=== PATIENT | female | born 1950 | race Caucasian/White ===

== ENCOUNTER 2023-02-25 17:35 | Inpatient (IN) ==
[2023-02-25] MEDS ORDERED: SODIUM CHLORIDE 0.9% 1000ML 1,000 ML IV SCH (18:30)
--- NOTE | 2023-02-25 18:31 | Emergency Department Note ---
History of Present Illness General Chief complaint: GI Assessment Stated complaint: FALL Time Seen by Provider: 02/25/23 18:16 Source: patient and family ( at bedside) History of Present Illness Provider complaint: Fall Onset (ago): day(s) 1 Maximum Pain Intensity: 7 73-year-old female presents emergency department for fall. Patient states she has ataxia and usually is unable to walk very well. She states that today around 1530 she tried to get up off of her portable toilet then fell and could not get up. She states she is reporting pain in her bilateral hips as well as her neck. She reports she has been having nausea and vomiting today. Tmax 100.5 today. Patient reports she was recently on Bactrim for UTI. Patient called EMS and was given fentanyl prior to arrival. Home Medications Medication Instructions Recorded Confirmed Type Lactobacillus acidophilus 10 mg PO BID 11/03/20 02/25/23 History acetaminophen 325 mg tablet 325 mg PO Q6 PRN Pain 11/03/20 02/25/23 History albuterol sulfate 90 mcg/actuation 2 puff inhalation Q4H PRN 11/03/20 02/25/23 History aerosol inhaler Shortness Of Breath atorvastatin 40 mg tablet 40 mg PO HS 11/03/20 02/25/23 History cetirizine 10 mg tablet (Zyrtec) 10 mg PO QAM 11/03/20 02/25/23 History fluticasone fur. 100 mcg-umeclid 1 inh inhalation QAM 11/03/20 02/25/23 History 62.5 mcg-vilant 25 mcg inhalat.powder (Trelegy Ellipta) fluticasone propionate 50 1 spray intranasal QAM 11/03/20 02/25/23 History mcg/actuation nasal spray,suspension ketoconazole 2 % topical cream 1 applic topical BID PRN Rash 11/03/20 02/25/23 History lorazepam 1 mg tablet 0.5 - 1 mg PO TID PRN Anxiety 11/03/20 02/25/23 History multivitamin 1 tab PO QAM 11/03/20 02/25/23 History nystatin 100,000 unit/gram topical 1 applic topical BID PRN Rash 11/03/20 05/2 04/23 History cream omeprazole 20 mg capsule,delayed 20 mg PO BID 11/03/20 02/25/23 History release oxybutynin chloride 10 mg 10 mg PO QAM 11/03/20 02/25/23 History tablet,extended release 24 hr albuterol sulfate 2.5 mg/3 mL 2.5 mg inhalation DIRECTED PRN 02/25/23 02/25/23 History (0.083 %) solution for nebulization Shortness Of Breath Or Wheezing aspirin 81 mg tablet,delayed 81 mg PO DAILY 02/25/23 02/25/23 History release cholecalciferol (vitamin D3) 25 25 mcg PO DAILY 02/25/23 02/25/23 History mcg (1,000 unit) capsule (Vitamin D3) cyanocobalamin (vitamin B-12) 100 100 mcg PO DAILY 02/25/23 02/25/23 History mcg tablet (Vitamin B-12) divalproex 500 mg tablet,delayed 500 mg PO BID 02/25/23 02/25/23 History release furosemide 20 mg tablet (Lasix) 20 mg PO QAM PRN EDEMA/WT GAIN 02/25/23 02/25/23 History insulin human U-100 NPH-regulr See Rx Instructions .Route .COMPLEX 02/25/23 02/25/23 History 70-30 mix 100 unit/mL subcutaneous susp (Novolin 70/30 U-100 Insulin) latanoprost 0.005 % eye drops 1 drp ophthalmic (eye) QPM 02/25/23 02/25/23 History metformin 500 mg tablet,extended 1,000 mg PO BID 02/25/23 02/25/23 History release 24 hr ropinirole 1 mg tablet 1 mg PO HS 02/25/23 02/25/23 History sulfamethoxazole 800 1 tab PO BID 02/25/23 02/25/23 History mg-trimethoprim 160 mg tablet Allergies Allergy/AdvReac Type Severity Reaction Status Date / Time dog dander Allergy Intermediate SNEEZING, Verified 02/25/23 21:38 ITCHING EYES & THROAT grass pollen-perennial rye, Allergy Intermediate SNEEZING, Verified 02/25/23 21:38 standar ITCHING EYES & THROAT Past Med/Surg History Medical History Anxiety Ataxia uses cane Chronic obstructive pulmonary disease inhaler daily/prn Diabetes mellitus, type 2 History of melanoma on back History of right breast cancer (~1997) diagnosed 1997--chemo/radiation/sx History of sepsis Hyperlipidemia Hypertension Morbid obesity with BMI of 45.0-49.9, adult Myoclonic jerking Osteoarthritis Surgical History History of appendectomy History of bilateral cataract extraction History of cardiac cath (~04/2018) @ [facility]--no stents placed History of cholecystectomy History of colonoscopy History of lumpectomy of right breast History of Mohs micrographic surgery for skin cancer History of right breast biopsy malignant History of tooth extraction Family History Brother Family hx of colon cancer Father Family hx of colon cancer Sister Family history of diabetes mellitus Family history of reaction to anesthesia "spike in BP and vomits" Daughter Family history of reaction to anesthesia nausea/vomiting/migraine Mother Family history of diabetes mellitus Brother Family history of diabetes mellitus Family hx colonic polyps Social History Smoking Status: Never smoker Second Hand Exposure: Yes (mom smoked/partner smoked); Do You Dip or Chew Tobacco: No; Hx Alcohol Use: No Hx Substance Use: No Preferred Language: Occitan Communication Ability: Effective Medical Assistant Dermatology Required: No Beliefs That Will Affect Care: None Current Living Situation: Significant Other Feels Safe at Home: Yes Assistive Devices: Denture - Upper and Glasses Physical Exam Vital Signs Vital Signs - 24 hr 02/25/23 17:42 02/25/23 17:47 02/25/23 17:44 Temperature 37.1 C Temperature Source Oral Pulse Rate 96 H 95 H Pulse Rate [Apical] Pulse Rhythm Pulse Rhythm [Apical] Pulse Strength [Apical] Respiratory Rate 20 Respiratory Effort / Characteristics Non-Labored Spontaneous Respiratory Depth Normal Blood Pressure 125/76 Blood Pressure [Left Arm] Blood Pressure Mean 92 Blood Pressure Mean [Left Arm] Pulse Oximetry 90 93 Oxygen Delivery Method Room Air Nasal Cannula Oxygen Flow Rate 2 Sepsis Recent Fever Within 48 Hours No Sepsis New/Unexplained Change in Mental Status No Sepsis Action Taken by Nursing No Action Required 02/25/23 20:38 02/25/23 21:00 02/25/23 21:12 Temperature Temperature Source Pulse Rate 82 Pulse Rate [Apical] 78 81 Pulse Rhythm Regular Pulse Rhythm [Apical] Regular Regular Pulse Strength [Apical] Normal Normal Respiratory Rate 18 16 18 Respiratory Effort / Characteristics Non-Labored Spontaneous Non-Labored Spontaneous Respiratory Depth Normal Normal Blood Pressure Blood Pressure [Left Arm] 121/75 102/78 Blood Pressure Mean Blood Pressure Mean [Left Arm] 90 86 Pulse Oximetry 96 95 97 Oxygen Delivery Method Nasal Cannula Nasal Cannula Nasal Cannula Oxygen Flow Rate 2 3 3 Sepsis Recent Fever Within 48 Hours Sepsis New/Unexplained Change in Mental Status Sepsis Action Taken by Nursing 02/25/23 21:31 Temperature Temperature Source Pulse Rate 79 Pulse Rate [Apical] Pulse Rhythm Pulse Rhythm [Apical] Pulse Strength [Apical] Respiratory Rate Respiratory Effort / Characteristics Respiratory Depth Blood Pressure Blood Pressure [Left Arm] Blood Pressure Mean Blood Pressure Mean [Left Arm] Pulse Oximetry Oxygen Delivery Method Oxygen Flow Rate Sepsis Recent Fever Within 48 Hours Sepsis New/Unexplained Change in Mental Status Sepsis Action Taken by Nursing Physical Exam HENT: Exam performed. -Head: Normocephalic and atraumatic. -Right Ear: External ear normal. No mastoid erythema -Left Ear: External ear normal. No mastoid erythema EYES: Conjunctivae and EOM are normal. Pupils are equal, round, and reactive to light. Right eye exhibits no discharge. Left eye exhibits no discharge. No scleral icterus. NECK: Normal range of motion. Neck supple. No JVD present. No spinous process tenderness present. No tracheal deviation and normal range of motion present. CV: Normal rate, regular rhythm, normal heart sounds and intact distal pulses. There is no peripheral edema. Palpable radial pulses bue. PULM/CHEST: Effort normal and breath sounds normal. No respiratory distress. No stridor. She has no wheezes. She has no rales. ABD: The abdomen is soft and obese. There is no tenderness. There is no rebound, no guarding MUSC/SKEL: Pain on palpation of the pelvis. LYMPH: No cervical adenopathy. NEURO: GCS eye subscore is 4. GCS verbal subscore is 5. GCS motor subscore is 6. Motor and sensation grossly intact. Course Course 1815: The patient was evaluated in room B5. A complete history and physical exam was performed Cardiac monitoring: An order was placed for continuous cardiac monitoring. The monitor shows a rate of 80 with sinus rhythm interpreted by me According nursing the patient became hypoxic on room air upon arrival was placed on 2 L nasal cannula which improved her oxygen saturation. 2124: Vital signs stable on supplemental oxygen via nasal cannula. Labs are within normal limits with exception of an elevated troponin. Imaging shows no acute traumatic injury. Patient be evaluated as an hospitalist team for admiss ion given her hypoxia elevated troponin and weakness. Dr. Love was notified and states he will evaluate the patient for admission. Administered Medications Discontinued Medications Sodium Chloride (Nss 1000ml) 1,000 mls @ 999 mls/hr IV .Q1H1M NEELAM Stop: 02/25/23 19:30 Last Admin: 02/25/23 20:19 Dose: 999 mls/hr Documented By: LAUREN Ioversol (Optiray 320 500ml) 116 ml IV ONCE ONE Stop: 02/25/23 19:35 Last Admin: 02/25/23 19:34 Dose: 116 ml Documented By: JAZLYN Medical Decision Making Laboratory Data Attestation: I reviewed the patient's lab results. 02/25/23 18:59 02/25/23 18:59 Lab Results 02/25/23 02/25/23 02/25/23 Range/Units 18:59 18:59 18:59 WBC 10.94 H (4.8-10.8) K/ul RBC 5.15 (4.20-5.40) M/uL Hgb 13.7 (12.0-16.0) g/dl POC Hgb (12.0-16.0) g/dl Hct 41.3 (37.0-47.0) % POC Hct (37-47) % MCV 80.2 (80.0-100.0) fL MCH 26.6 (25.0-34.0) pg MCHC 33.2 (32.0-36.0) g/dL RDW Std Deviation 46.3 (36.4-46.3) fL RDW Coeff of [place] 15.9 H (11.5-14.5) % Plt Count 237 (130-400) K/uL MPV 9.6 (9.4-12.4) fL Immature Gran % (Auto) 0.5 % Neut % (Auto) 87.7 % Lymph % (Auto) 5.0 % [place] % (Auto) 6.4 % Eos % (Auto) 0.2 % Baso % (Auto) 0.2 % Neut # (Auto) 9.59 H (1.40-6.50) K/uL Lymph # (Auto) 0.55 L (1.2-3.4) K/uL [place] # (Auto) 0.70 H (0.11-0.59) K/uL Eos # (Auto) 0.02 (0-0.50) K/uL Baso # (Auto) 0.02 (0-0.2) K/uL Immature Gran # (Auto) 0.06 (0.01-0.20) K/uL PT 11.0 (9.0-12.0) Seconds INR 1.0 (0.9-1.1) APTT 26.5 (21.0-31.0) Seconds PTT Ratio 0.9 VBG pH (7.36-7.41) VBG pCO2 (38-50) mmHg VBG pO2 mmHg VBG HCO3 mmol/L VBG O2 Saturation % VBG Base Excess mEq/L POC Sodium (135-144) mmol/L Sodium 135 L (136-145) mmol/L POC Potassium (3.3-5.0) mmol/L Potassium 4.4 (3.5-5.1) mmol/L POC Chloride (101-112) mmol/L Chloride 101 (98-107) mmol/L Carbon Dioxide 25 (21-32) mmol/L POC Total CO2 (24-31) mmol/L Anion Gap 9 (3-11) POC Anion Gap (16-25) mmol/L POC BUN (7-18) mg/dl BUN 11 (6-23) mg/dl Creatinine 0.71 (0.6-1.2) mg/dl POC Creatinine (0.6-1.3) mg/dl Est Cr Clr Drug Dosing 85.1 ml/min Est GFR ( Amer) 98.6 ml/min Est GFR (Non-Af Amer) 85.1 ml/min BUN/Creatinine Ratio 15.5 (10-20) Glucose 168 H (70-99(Fasting)) mg/dl POC Glucose (other) (70-99) mg/dl Lactate (0.4-2.0) mmol/L Calcium 9.2 (8.6-10.3) mg/dl POC Ioniz Calcium Cheryl (1.12-1.32) mmol/l Magnesium 1.9 (1.7-2.4) mg/dl Total Bilirubin 0.7 (0.2-1.0) mg/dl Direct Bilirubin 0.2 (0-0.2) mg/dl AST 41 H (13-39) U/L ALT 49 (7-52) U/L Alkaline Phosphatase 157 H (34-104) U/L Ammonia (18-72) umol/L Troponin I High Sens 48.1 H (0-14) pg/ml Total Protein 7.2 (6.0-8.3) gm/dl Albumin 3.8 (3.4-5.0) gm/dl Procalcitonin (0-0.5) ng/ml Urine Color Urine Appearance (Clear) Urine pH (4.5-7.5) Ur Specific [place] (1.000-1.030) Urine Protein (Negative) Urine Glucose (UA) (Negative) Urine Ketones (Negative) Urine Blood (Negative) Urine Nitrite (Negative) Urine Bilirubin (Negative) Urine Urobilinogen (Negative) Ur Leukocyte Esterase (Negative) Urine WBC (Auto) (0-5) /hpf Urine RBC (Auto) (0-4) /hpf U Hyaline Cast (Auto) (0-5) /lpf U Epithel Cells (Auto) (0-5) /lpf Urine Bacteria (Auto) (Negative) SARS-CoV-2 (PCR) (Negative) Influenza Type A (PCR) (Neg) Influenza Type B (PCR) (Neg) RSV (RT-PCR) (Neg) 02/25/23 02/25/23 02/25/23 Range/Units 18:59 18:59 18:59 WBC (4.8-10.8) K/ul RBC (4.20-5.40) M/uL Hgb (12.0-16.0) g/dl POC Hgb (12.0-16.0) g/dl Hct (37.0-47.0) % POC Hct (37-47) % MCV (80.0-100.0) fL MCH (25.0-34.0) pg MCHC (32.0-36.0) g/dL RDW Std Deviation (36.4-46.3) fL RDW Coeff of [place] (11.5-14.5) % Plt Count (130-400) K/uL MPV (9.4-12.4) fL Immature Gran % (Auto) % Neut % (Auto) % Lymph % (Auto) % [place] % (Auto) % Eos % (Auto) % Baso % (Auto) % Neut # (Auto) (1.40-6.50) K/uL Lymph # (Auto) (1.2-3.4) K/uL [place] # (Auto) (0.11-0.59) K/uL Eos # (Auto) (0-0.50) K/uL Baso # (Auto) (0-0.2) K/uL Immature Gran # (Auto) (0.01-0.20) K/uL PT (9.0-12.0) Seconds INR (0.9-1.1) APTT (21.0-31.0) Seconds PTT Ratio VBG pH 7.40 (7.36-7.41) VBG pCO2 42 (38-50) mmHg VBG pO2 41 mmHg VBG HCO3 26 mmol/L VBG O2 Saturation 65.5 % VBG Base Excess 1.0 mEq/L POC Sodium (135-144) mmol/L Sodium (136-145) mmol/L POC Potassium (3.3-5.0) mmol/L Potassium (3.5-5.1) mmol/L POC Chloride (101-112) mmol/L Chloride (98-107) mmol/L Carbon Dioxide (21-32) mmol/L POC Total CO2 (24-31) mmol/L Anion Gap (3-11) POC Anion Gap (16-25) mmol/L POC BUN (7-18) mg/dl BUN (6-23) mg/dl Creatinine (0.6-1.2) mg/dl POC Creatinine (0.6-1.3) mg/dl Est Cr Clr Drug Dosing ml/min Est GFR ( Amer) ml/min Est GFR (Non-Af Amer) ml/min BUN/Creatinine Ratio (10-20) Glucose (70-99(Fasting)) mg/dl POC Glucose (other) (70-99) mg/dl Lactate 1.5 (0.4-2.0) mmol/L Calcium (8.6-10.3) mg/dl POC Ioniz Calcium Cheryl (1.12-1.32) mmol/l Magnesium (1.7-2.4) mg/dl Total Bilirubin (0.2-1.0) mg/dl Direct Bilirubin (0-0.2) mg/dl AST (13-39) U/L ALT (7-52) U/L Alkaline Phosphatase (34-104) U/L Ammonia (18-72) umol/L Troponin I High Sens (0-14) pg/ml Total Protein (6.0-8.3) gm/dl Albumin (3.4-5.0) gm/dl Procalcitonin 0.50 (0-0.5) ng/ml Urine Color Urine Appearance (Clear) Urine pH (4.5-7.5) Ur Specific [place] (1.000-1.030) Urine Protein (Negative) Urine Glucose (UA) (Negative) Urine Ketones (Negative) Urine Blood (Negative) Urine Nitrite (Negative) Urine Bilirubin (Negative) Urine Urobilinogen (Negative) Ur Leukocyte Esterase (Negative) Urine WBC (Auto) (0-5) /hpf Urine RBC (Auto) (0-4) /hpf U Hyaline Cast (Auto) (0-5) /lpf U Epithel Cells (Auto) (0-5) /lpf Urine Bacteria (Auto) (Negative) SARS-CoV-2 (PCR) (Negative) Influenza Type A (PCR) (Neg) Influenza Type B (PCR) (Neg) RSV (RT-PCR) (Neg) 02/25/23 02/25/23 02/25/23 Range/Units 18:59 19:17 20:25 WBC (4.8-10.8) K/ul RBC (4.20-5.40) M/uL Hgb (12.0-16.0) g/dl POC Hgb 13.9 (12.0-16.0) g/dl Hct (37.0-47.0) % POC Hct 41 (37-47) % MCV (80.0-100.0) fL MCH (25.0-34.0) pg MCHC (32.0-36.0) g/dL RDW Std Deviation (36.4-46.3) fL RDW Coeff of [place] (11.5-14.5) % Plt Count (130-400) K/uL MPV (9.4-12.4) fL Immature Gran % (Auto) % Neut % (Auto) % Lymph % (Auto) % [place] % (Auto) % Eos % (Auto) % Baso % (Auto) % Neut # (Auto) (1.40-6.50) K/uL Lymph # (Auto) (1.2-3.4) K/uL [place] # (Auto) (0.11-0.59) K/uL Eos # (Auto) (0-0.50) K/uL Baso # (Auto) (0-0.2) K/uL Immature Gran # (Auto) (0.01-0.20) K/uL PT (9.0-12.0) Seconds INR (0.9-1.1) APTT (21.0-31.0) Seconds PTT Ratio VBG pH (7.36-7.41) VBG pCO2 (38-50) mmHg VBG pO2 mmHg VBG HCO3 mmol/L VBG O2 Saturation % VBG Base Excess mEq/L POC Sodium 136 (135-144) mmol/L Sodium (136-145) mmol/L POC Potassium 4.2 (3.3-5.0) mmol/L Potassium (3.5-5.1) mmol/L POC Chloride 100 L (101-112) mmol/L Chloride (98-107) mmol/L Carbon Dioxide (21-32) mmol/L POC Total CO2 22 L (24-31) mmol/L Anion Gap (3-11) POC Anion Gap 20.0 (16-25) mmol/L POC BUN 10 (7-18) mg/dl BUN (6-23) mg/dl Creatinine (0.6-1.2) mg/dl POC Creatinine 0.6 (0.6-1.3) mg/dl Est Cr Clr Drug Dosing ml/min Est GFR ( Amer) ml/min Est GFR (Non-Af Amer) ml/min BUN/Creatinine Ratio (10-20) Glucose (70-99(Fasting)) mg/dl POC Glucose (other) 170 H (70-99) mg/dl Lactate (0.4-2.0) mmol/L Calcium (8.6-10.3) mg/dl POC Ioniz Calcium Cheryl 1.17 (1.12-1.32) mmol/l Magnesium (1.7-2.4) mg/dl Total Bilirubin (0.2-1.0) mg/dl Direct Bilirubin (0-0.2) mg/dl AST (13-39) U/L ALT (7-52) U/L Alkaline Phosphatase (34-104) U/L Ammonia 23.0 (18-72) umol/L Troponin I High Sens (0-14) pg/ml Total Protein (6.0-8.3) gm/dl Albumin (3.4-5.0) gm/dl Procalcitonin (0-0.5) ng/ml Urine Color Yellow Urine Appearance Clear (Clear) Urine pH 6.0 (4.5-7.5) Ur Specific [place] > 1.045 H (1.000-1.030) Urine Protein Trace H (Negative) Urine Glucose (UA) Negative (Negative) Urine Ketones 2+ H (Negative) Urine Blood Negative (Negative) Urine Nitrite Negative (Negative) Urine Bilirubin Negative (Negative) Urine Urobilinogen Negative (Negative) Ur Leukocyte Esterase Negative (Negative) Urine WBC (Auto) 1-5 (0-5) /hpf Urine RBC (Auto) 0-4 (0-4) /hpf U Hyaline Cast (Auto) 1-5 (0-5) /lpf U Epithel Cells (Auto) >30 H (0-5) /lpf Urine Bacteria (Auto) Negative (Negative) SARS-CoV-2 (PCR) (Negative) Influenza Type A (PCR) (Neg) Influenza Type B (PCR) (Neg) RSV (RT-PCR) (Neg) 02/25/23 Range/Units 20:25 WBC (4.8-10.8) K/ul RBC (4.20-5.40) M/uL Hgb (12.0-16.0) g/dl POC Hgb (12.0-16.0) g/dl Hct (37.0-47.0) % POC Hct (37-47) % MCV (80.0-100.0) fL MCH (25.0-34.0) pg MCHC (32.0-36.0) g/dL RDW Std Deviation (36.4-46.3) fL RDW Coeff of [place] (11.5-14.5) % Plt Count (130-400) K/uL MPV (9.4-12.4) fL Immature Gran % (Auto) % Neut % (Auto) % Lymph % (Auto) % [place] % (Auto) % Eos % (Auto) % Baso % (Auto) % Neut # (Auto) (1.40-6.50) K/uL Lymph # (Auto) (1.2-3.4) K/uL [place] # (Auto) (0.11-0.59) K/uL Eos # (Auto) (0-0.50) K/uL Baso # (Auto) (0-0.2) K/uL Immature Gran # (Auto) (0.01-0.20) K/uL PT (9.0-12.0) Seconds INR (0.9-1.1) APTT (21.0-31.0) Seconds PTT Ratio VBG pH (7.36-7.41) VBG pCO2 (38-50) mmHg VBG pO2 mmHg VBG HCO3 mmol/L VBG O2 Saturation % VBG Base Excess mEq/L POC Sodium (135-144) mmol/L Sodium (136-145) mmol/L POC Potassium (3.3-5.0) mmol/L Potassium (3.5-5.1) mmol/L POC Chloride (101-112) mmol/L Chloride (98-107) mmol/L Carbon Dioxide (21-32) mmol/L POC Total CO2 (24-31) mmol/L Anion Gap (3-11) POC Anion Gap (16-25) mmol/L POC BUN (7-18) mg/dl BUN (6-23) mg/dl Creatinine (0.6-1.2) mg/dl POC Creatinine (0.6-1.3) mg/dl Est Cr Clr Drug Dosing ml/min Est GFR ( Amer) ml/min Est GFR (Non-Af Amer) ml/min BUN/Creatinine Ratio (10-20) Glucose (70-99(Fasting)) mg/dl POC Glucose (other) (70-99) mg/dl Lactate (0.4-2.0) mmol/L Calcium (8.6-10.3) mg/dl POC Ioniz Calcium Cheryl (1.12-1.32) mmol/l Magnesium (1.7-2.4) mg/dl Total Bilirubin (0.2-1.0) mg/dl Direct Bilirubin (0-0.2) mg/dl AST (13-39) U/L ALT (7-52) U/L Alkaline Phosphatase (34-104) U/L Ammonia (18-72) umol/L Troponin I High Sens (0-14) pg/ml Total Protein (6.0-8.3) gm/dl Albumin (3.4-5.0) gm/dl Procalcitonin (0-0.5) ng/ml Urine Color Urine Appearance (Clear) Urine pH (4.5-7.5) Ur Specific [place] (1.000-1.030) Urine Protein (Negative) Urine Glucose (UA) (Negative) Urine Ketones (Negative) Urine Blood (Negative) Urine Nitrite (Negative) Urine Bilirubin (Negative) Urine Urobilinogen (Negative) Ur Leukocyte Esterase (Negative) Urine WBC (Auto) (0-5) /hpf Urine RBC (Auto) (0-4) /hpf U Hyaline Cast (Auto) (0-5) /lpf U Epithel Cells (Auto) (0-5) /lpf Urine Bacteria (Auto) (Negative) SARS-CoV-2 (PCR) NEGATIVE (Negative) Influenza Type A (PCR) Negative (Neg) Influenza Type B (PCR) Negative (Neg) RSV (RT-PCR) Negative (Neg) Imaging Data Attestation: I personally reviewed and interpreted this imaging study as follows: My Impression: Chest x-ray negative. Airway clear. No pneumothorax. No consolidation. No cardiomegaly or cephalization.. No free air under the diaphragm. No fractures of the skeletal structures. Radiologist's Impression: Chest X-Ray 02/25/23 18:23 XR chest 1V portable HISTORY: Sepsis COMPARISON: Chest 04/18/2018. FINDINGS: There are low lung volumes. No pneumothorax. There is mild central pulmonary vascular congestion without overt edema. No pleural effusions. No focal lung consolidations to suggest a pneumonia. Prior cholecystectomy. Calcifications within the aortic knob. Elevation of the right hemidiaphragm, unchanged. No acute fractures identified. IMPRESSION: Mild cardiomegaly and mild central pulmonary vascular congestion. ACT 112: Negative or not required by law. Electronically signed by: Phu Almeida M.D. 02/25/2023 8:08 PM Abdomen/Pelvis CT 02/25/23 18:[address] WITH IV CONTRAST CT DOSE: HISTORY: fall TECHNIQUE: Multiaxial CT images of the abdomen and pelvis were performed following the use of intravenous contrast. A dose lowering technique was utilized adhering to the principles of ALARA. COMPARISON STUDY: Abdomen and pelvis CT 05/09/2014. FINDINGS: Mild elevation of the right hemidiaphragm. Bibasilar linear densities consistent with subsegmental atelectasis. No pneumoperitoneum. No pneumatosis. Stable 9 mm sclerotic focus within the left posterior 12th rib. This likely represents a bone island given the long-term stability. No acute fractures identified. Prior cholecystectomy. The liver, pancreas, spleen, adrenal glands, and kidneys are unremarkable. No hydronephrosis. The main portal vein is patent. There is a mildly enlarged portacaval lymph node, unchanged. This is likely benign given the long-term stability. Otherwise, no retroperitoneal or pelvic lymphadenopathy. Moderate calcified plaque within the normal caliber abdominal aorta. No pelvic free fluid. The bladder is decompressed. A 2 cm calcified uterine fibroid is noted. The ovaries are unremarkable. Colonic diverticulosis. No evidence for acute diverticulitis. No bowel wall thickening or obstruction. IMPRESSION: 1. No acute traumatic process within the abdomen or pelvis. 2. No bowel wall thickening or obstruction. 3. Prior cholecystectomy. 4. Additional findings as described above. ACT 112: Negative or not required by law. Electronically signed by: Phu Almeida M.D. 02/25/2023 8:[address] 02/25/23 18:[address] DOSE: HISTORY: fall TECHNIQUE: Multiaxial CT images of the cervical spine were performed and reformatted in the sagittal and coronal plane without the use of contrast. A dose lowering technique was utilized adhering to the principles of ALARA. COMPARISON: None. FINDINGS: No fractures. No subluxation. Prevertebral soft tissues and the C1-C2 interval are intact. No pneumothorax. There is a coarse calcification within the left thyroid lobe and a 9 mm hypodense nodule. This does not meet CT criteria for follow-up. IMPRESSION: No fractures within the cervical spine. ACT 112: Negative or not required by law. Electronically signed by: Phu Almeida M.D. 02/25/2023 7:48 PM Chest CTA 02/25/23 18:24 CHEST CTA for PULMONARY ARTERIES CT DOSE: 3638.75 mGy.cm HISTORY: fall hypoxia immobile ro pe TECHNIQUE: Multiaxial CT images of the chest were performed following the intravenous administration of contrast to evaluate the pulmonary arteries. Maximal intensity projection images were also obtained. A dose lowering technique was utilized adhering to the principles of ALARA. COMPARISON STUDY: None. FINDINGS: There is a 1 cm sclerotic lesion within the right side of the T4 v ertebral body. No acute fractures within the chest. The central airways are patent. No pneumothorax. No pleural effusions. There are low lung volumes with mild elevation the right hemidiaphragm. Bibasilar linear densities favor subsegmental atelectasis. Otherwise, no focal lung consolidations to suggest a pneumonia. No evidence for pulmonary edema. A 9 mm left thyroid nodules again noted. Normal esophagus. No mediastinal or hilar lymphadenopathy. The heart is mildly enlarged. No pericardial effusion. Calcified plaque within the normal caliber thoracic aorta. No evidence for an aortic dissection. There are moderate to severe coronary artery calcifications noted. No filling defects within the pulmonary arteries to suggest a pulmonary embolus. IMPRESSION: 1. No evidence for a pulmonary embolus. 2. Cardiomegaly. 3. Bibasilar linear densities favor subsegmental atelectasis. Otherwise, no focal lung consolidations to suggest a pneumonia. 4. No acute traumatic process within the chest. 5. A 1 cm indeterminate sclerotic lesion within the right side of the T4 vertebral body. Follow-up nonemergent bone scan recommended to exclude a metabolically active lesion. ACT 112: Positive. There are findings on this exam that require communication between the performing entity and the patient following Patient Test Result Information Act ([place] Act 112) guidelines. Electronically signed by: Phu Almeida M.D. 02/25/2023 7:56 PM Head CT 02/25/23 18:[address] DOSE: HISTORY: Head injury. fall TECHNIQUE: Multiaxial CT images of the head were performed without the use of intravenous contrast. Automated exposure control was utilized for this study. A dose lowering technique was utilized adhering to the principles of ALARA. Comparison: Head CT 04/19/2018. Findings: The paranasal sinuses and mastoid air cells are clear. The calvarium and skull base are intact. There is no mass, hematoma, midline shift, acute infarct. White matter hypodensity is nonspecific but suggestive of microvascular ischemic change. The ventricles and sulci demonstrate mild age-related involutional changes. Motion artifact. Impression: Motion artifact. No definite acute intracranial abnormality. ACT 112: Negative or not required by law. Electronically signed by: Phu Almeida M.D. 02/25/2023 7:45 PM Pelvis X-Ray 02/25/23 18:25 XR pelvis 1-2V routine CLINICAL HISTORY: fall. Pelvic pain. COMPARISON STUDY: None. FINDINGS: No fracture or dislocation within the pelvis or hips. The sacrum is intact. Soft tissues are unremarkable. There is contrast within the urinary system from the recent CT examination. IMPRESSION: No fracture or dislocation within the pelvis or hips. ACT 112: Negative or not required by law. Electronically signed by: Phu Almeida M.D. 02/25/2023 8:09 PM ECG Data Attestation: I personally reviewed and interpreted this ECG as follows: Indication: + SOB/dyspnea Rate (beats per minute): 92 Rhythm: + normal sinus ECG Intervals/blocks: + Normal QRS and + Normal TN ECG ST segments: + Normal ST segments ECG Findings: + LVH MDM Narrative 1815: The patient was evaluated in room B5. A complete history and physical exam was performed Cardiac monitoring: An order was placed for continuous cardiac monitoring. The monitor shows a rate of 80 with sinus rhythm interpreted by me According nursing the patient became hypoxic on room air upon arrival was placed on 2 L nasal cannula which improved her oxygen saturation. 2124: Vital signs stable on supplemental oxygen via nasal cannula. Labs are within normal limits with exception of an elevated troponin. Imaging shows no acute traumatic injury. Patient be evaluated as an hospitalist team for admission given her hypoxia elevated troponin and weakness. Dr. Love was notified and states he will evaluate the patient for admission. Impression & Plan Hypoxia, Recurrent falls, Elevated troponin Discharge Plan Visit Data Chief Complaint: GI Assessment Stated Complaint: FALL ED Provider: Surendra Moise Discharge Problem: Hypoxia, Recurrent falls, Elevated troponin Patient Disposition: Admitted As Inpatient Forms Stand Alone Forms: [facility] Prescriptions Prescriptions: No Action multivitamin Tablet 1 tab PO QAM atorvastatin 40 mg Tablet 40 mg PO HS acetaminophen 325 mg Tablet 325 mg PO Q6 PRN (Reason: Pain) cetirizine [Zyrtec] 10 mg Tablet 10 mg PO QAM oxybutynin chloride 10 mg Tablet Extended Release 24hr 10 mg PO QAM nystatin 100,000 unit/gram Cream 1 applic TOPICAL BID PRN (Reason: Rash) omeprazole 20 mg Capsule,Delayed Release(Dr/Ec) 20 mg PO BID lorazepam 1 mg Tablet 0.5 - 1 mg PO TID PRN (Reason: Anxiety) Patient Comments: per pt takes before riding in cars Lactobacillus acidophilus Capsule 10 mg PO BID albuterol sulfate 90 mcg/actuation Hfa Aerosol Inhaler 2 puff INHALATION Q4H PRN (Reason: Shortness Of Breath) ketoconazole 2 % Cream 1 applic TOPICAL BID PRN (Reason: Rash) fluticasone propionate [Flonase] 50 mcg/actuation [place],Suspension 1 spray INTRANASAL QAM Trelegy Ellipta 100-62.5-25 mcg Blister With Device 1 inh INHALATION QAM latanoprost 0.005 % drops 1 drp ophthalmic (eye) QPM ropinirole 1 mg tablet 1 mg PO HS cyanocobalamin (vitamin B-12) [Vitamin B-12] 100 mcg Tablet 100 mcg PO DAILY albuterol sulfate [Proventil] 2.5 mg /3 mL (0.083 %) Solution For Nebulization 2.5 mg INHALATION DIRECTED PRN (Reason: Shortness Of Breath Or Wheezing) Novolin 70/30 U-100 Insulin 100 unit/mL (70-30) suspension See Rx Instructions .ROUTE .COMPLEX Rx Instructions: 31 UNITS QAM, 21 UNITS QPM ( ON GOOD DAY 25 QAM, 13 QPM) PER [facility]. divalproex 500 mg tablet,delayed release (DR/EC) 500 mg PO BID sulfamethoxazole-trimethoprim 800-160 mg tablet 1 tab PO BID Rx Instructions: STARTED 02/17/23 FOR 7 DAYS aspirin 81 mg Tablet,Delayed Release (Dr/Ec) 81 mg PO DAILY furosemide [Lasix] 20 mg Tablet 20 mg PO QAM PRN (Reason: EDEMA/WT GAIN) metformin 500 mg tablet extended release 24 hr 1,000 mg PO BID cholecalciferol (vitamin D3) [Vitamin D3] 25 mcg (1,000 unit) Capsule 25 mcg PO DAILY Referrals Referrals: Renny Abdi MD [Primary Care Provider] -
[2023-02-25 19:10] LABS: HCO3 VBG 26 mmol/L; Oxygen Saturation VBG 65.5 %; PCO2 VBG 42 mmHg (38-50); PO2 VBG 41 mmHg
[2023-02-25 19:15] LABS: Basophils # (auto) 0.02 K/uL (0-0.2); Basophils % (auto) 0.2 %; Eosinophils # (auto) 0.02 K/uL (0-0.50); Eosinophils % (auto) 0.2 %; Hematocrit (blood only) 41.3 % (37.0-47.0); Hemoglobin 13.7 g/dl (12.0-16.0); Immature Granulocytes # (auto) 0.06 K/uL (0.01-0.20); Immature Granulocytes % (auto) 0.5 %; Lymphocytes # (auto) 0.55 K/uL (1.2-3.4); Mean Corpuscular Hemoglobin 26.6 pg (25.0-34.0); Mean Corpuscular Hgb Conc 33.2 g/dL (32.0-36.0); Mean Corpuscular Volume 80.2 fL (80.0-100.0); Mean Platelet Volume 9.6 fL (9.4-12.4); Monocytes % (auto) 6.4 %; Neutrophils # (auto) 9.59 K/uL (1.40-6.50); Neutrophils % (auto) 87.7 %; Platelet Count 237 K/uL (130-400); RDW Coefficient of Variation 15.9 % (11.5-14.5); RDW Standard Deviation 46.3 fL (36.4-46.3); Red Blood Count 5.15 M/uL (4.20-5.40); White Blood Count 10.94 K/ul (4.8-10.8)
[2023-02-25 19:30] LABS: iSTAT Creatinine 0.6 mg/dl (0.6-1.3); iSTAT Hemoglobin 13.9 g/dl (12.0-16.0); iSTAT Ionized Calcium 1.17 mmol/l (1.12-1.32); iSTAT Potassium 4.2 mmol/L (3.3-5.0)
[2023-02-25] MEDS ORDERED: OPTIRAY 320 500ml IV ONE (19:34)
[2023-02-25 19:36] LABS: Albumin Level 3.8 gm/dl (3.4-5.0); BUN Creatinine Ratio 15.5 (10-20); Bilirubin Direct 0.2 mg/dl (0-0.2); Bilirubin,Total 0.7 mg/dl (0.2-1.0); Calcium 9.2 mg/dl (8.6-10.3); Creatinine Clr Calc Pharmacy 85.1 ml/min; Est GFR (African American) 98.6 ml/min; Est GFR (Non-African American) 85.1 ml/min; Magnesium 1.9 mg/dl (1.7-2.4); Potassium 4.4 mmol/L (3.5-5.1); Total Protein 7.2 gm/dl (6.0-8.3)
[2023-02-25 19:40] LABS: Troponin I High Sensitivity 48.1 pg/ml (0-14)
--- NOTE | 2023-02-25 19:47 | CT Scan Report ---
HEAD CT NONCONTRAST CT DOSE: HISTORY: Head injury. fall TECHNIQUE: Multiaxial CT images of the head were performed without the use of intravenous contrast. A utomated exposure control was utilized for this study. A dose lowering technique was utilized adheri ng to the principles of ALARA. Comparison: Head CT 04/19/2018. Findings: The paranasal sinuses and mastoid air cells are clear. The calvarium and skull base are int act. There is no mass, hematoma, midline shift, acute infarct. White matter hypodensity is nonspecifi c but suggestive of microvascular ischemic change. The ventricles and sulci demonstrate mild age-rela paty involutional changes. Motion artifact. Impression: Motion artifact. No definite acute intracranial abnormality. ACT 112: Negative or not required by law. Electronically signed by: Phu Almeida M.D. 02/25/2023 7:45 PM
--- NOTE | 2023-02-25 19:49 | CT Scan Report ---
CERVICAL SPINE CT CT DOSE: HISTORY: fall TECHNIQUE: Multiaxial CT images of the cervical spine were performed and reformatted in the sagittal and coronal plane without the use of contrast. A dose lowering technique was utilized adhering to th e principles of ALARA. COMPARISON: None. FINDINGS: No fractures. No subluxation. Prevertebral soft tissues and the C1-C2 interval are intact. No pneumothorax. There is a coarse calcification within the left thyroid lobe and a 9 mm hypodense no dule. This does not meet CT criteria for follow-up. IMPRESSION: No fractures within the cervical spine. ACT 112: Negative or not required by law. Electronically signed by: Phu Almeida M.D. 02/25/2023 7:48 PM
[2023-02-25 19:51] LABS: Partial Thromboplastin Ratio 0.9; Partial Thromboplastin Time 26.5 Seconds (21.0-31.0)
--- NOTE | 2023-02-25 19:58 | CT Scan Report ---
CHEST CTA for PULMONARY ARTERIES CT DOSE: 3638.75 mGy.cm HISTORY: fall hypoxia immobile ro pe TECHNIQUE: Multiaxial CT images of the chest were performed following the intravenous administration of contrast to evaluate the pulmonary arteries. Maximal intensity projection images were also obtaine d. A dose lowering technique was utilized adhering to the principles of ALARA. COMPARISON STUDY: None. FINDINGS: There is a 1 cm sclerotic lesion within the right side of the T4 vertebral body. No acute f ractures within the chest. The central airways are patent. No pneumothorax. No pleural effusions. The re are low lung volumes with mild elevation the right hemidiaphragm. Bibasilar linear densities favor subsegmental atelectasis. Otherwise, no focal lung consolidations to suggest a pneumonia. No evidenc e for pulmonary edema. A 9 mm left thyroid nodules again noted. Normal esophagus. No mediastinal or h ilar lymphadenopathy. The heart is mildly enlarged. No pericardial effusion. Calcified plaque within the normal caliber thoracic aorta. No evidence for an aortic dissection. There are moderate to severe coronary artery calcifications noted. No filling defects within the pulmonary arteries to suggest a pulmonary embolus. IMPRESSION: 1. No evidence for a pulmonary embolus. 2. Cardiomegaly. 3. Bibasilar linear densities favor subsegmental atelectasis. Otherwise, no focal lung consolidations to suggest a pneumonia. 4. No acute traumatic process within the chest. 5. A 1 cm indeterminate sclerotic lesion within the right side of the T4 vertebral body. Follow-up no nemergent bone scan recommended to exclude a metabolically active lesion. ACT 112: Positive. There are findings on this exam that require communication between the performing entity and the patient following Patient Test Result Information Act ([place] Act 112) guidelines. Electronically signed by: Phu Almeida M.D. 02/25/2023 7:56 PM
--- NOTE | 2023-02-25 20:05 | CT Scan Report ---
ABDOMEN AND PELVIS CT WITH IV CONTRAST CT DOSE: HISTORY: fall TECHNIQUE: Multiaxial CT images of the abdomen and pelvis were performed following the use of intrave nous contrast. A dose lowering technique was utilized adhering to the principles of ALARA. COMPARISON STUDY: Abdomen and pelvis CT 05/09/2014. FINDINGS: Mild elevation of the right hemidiaphragm. Bibasilar linear densities consistent with subse gmental atelectasis. No pneumoperitoneum. No pneumatosis. Stable 9 mm sclerotic focus within the left posterior 12th rib. This likely represents a bone island given the long-term stability. No acute fra ctures identified. Prior cholecystectomy. The liver, pancreas, spleen, adrenal glands, and kidneys ar e unremarkable. No hydronephrosis. The main portal vein is patent. There is a mildly enlarged [place] lymph node, unchanged. This is likely benign given the long-term stability. Otherwise, no retrope ritoneal or pelvic lymphadenopathy. Moderate calcified plaque within the normal caliber abdominal aor ta. No pelvic free fluid. The bladder is decompressed. A 2 cm calcified uterine fibroid is noted. The ovaries are unremarkable. Colonic diverticulosis. No evidence for acute diverticulitis. No bowel wal l thickening or obstruction. IMPRESSION: 1. No acute traumatic process within the abdomen or pelvis. 2. No bowel wall thickening or obstruction. 3. Prior cholecystectomy. 4. Additional findings as described above. ACT 112: Negative or not required by law. Electronically signed by: Phu Almeida M.D. 02/25/2023 8:03 PM
--- NOTE | 2023-02-25 20:09 | XRay Report ---
XR chest 1V portable HISTORY: Sepsis COMPARISON: Chest 04/18/2018. FINDINGS: There are low lung volumes. No pneumothorax. There is mild central pulmonary vascular conge stion without overt edema. No pleural effusions. No focal lung consolidations to suggest a pneumonia. Prior cholecystectomy. Calcifications within the aortic knob. Elevation of the right hemidiaphragm, unchanged. No acute fractures identified. IMPRESSION: Mild cardiomegaly and mild central pulmonary vascular congestion. ACT 112: Negative or not required by law. Electronically signed by: Phu Almeida M.D. 02/25/2023 8:08 PM
--- NOTE | 2023-02-25 20:10 | XRay Report ---
XR pelvis 1-2V routine CLINICAL HISTORY: fall. Pelvic pain. COMPARISON STUDY: None. FINDINGS: No fracture or dislocation within the pelvis or hips. The sacrum is intact. Soft tissues ar e unremarkable. There is contrast within the urinary system from the recent CT examination. IMPRESSION: No fracture or dislocation within the pelvis or hips. ACT 112: Negative or not required by law. Electronically signed by: Phu Almeida M.D. 02/25/2023 8:09 PM
[2023-02-25 20:42] LABS: Appearance Urine Clear (Clear); Bacteria Urine Automated Negative (Negative); Bilirubin Urine Negative (Negative); Blood Urine Negative (Negative); Color Urine Yellow; Epithelial Cell Urine Auto >30 /lpf (0-5); Glucose Urine UA Negative (Negative); Ketones Urine 2+ (Negative); Leukocyte Esterase Urine Negative (Negative); Nitrite Urine Negative (Negative); Protein Urine Trace (Negative); RBC Urine Automated 0-4 /hpf (0-4); Specific Gravity Urine > 1.045 (1.000-1.030); Urobilinogen Urine Negative (Negative)
[2023-02-25 21:14] LABS: Influenza A virus by PCR Negative (Neg); Influenza B virus by PCR Negative (Neg); RSV by PCR Negative (Neg); SARS CoV2 RNA(COVID-19) Ceph NEGATIVE (Negative)
[2023-02-25] MEDS ORDERED: SODIUM CHLORIDE 0.9% 1000ML 1,000 ML IV ONE (21:30)
[2023-02-25 22:25] LABS: Troponin I High Sensitivity 35.5 pg/ml (0-14)
--- NOTE | 2023-02-25 23:01 | History & Physical Report ---
Date of Service February 25, 2023 Assessment & Plan (1) Hypoxia: Plan: Patient denies chest pain, SOB Possibly chronic Rule out pulmonary hypertension given history COPD/MIKE as per records Hypotension secondary to hypovolemia secondary to GI upset, recent UTI status p ost Bactrim Rx chronic diastolic heart failure (55 to 60%, TTE 2018), patient on the dry side Troponin elevation secondary to illness, hx nonocclusive CAD, patient without chest pain/SOB complaints DM 2 insulin requiring, well-controlled as of hemoglobin A1c of 5.6 last December 2021 Worsening ambulatory dysfunction secondary to illness, history ataxia as per records possible RLS, unimproved on current ropinirole regimen Troponin elevation Right breast cancer status post surgery/radiotherapy, currently in remission anxiety/mood disorder, stable past tobacco abuse OBS Medical telemetry Supplemental O2 TTE Re: Hypotension, low O2 rule out pulm hypertension, troponin elevation IVF Basal bolus insulin, ISS BG goal 1 10-1 40, carb count coverage, update hemoglobin A1c PT OT eval DVT prophylaxis. Lovenox subcu Full code Patient request for her to be given periodic updates. Mr. Addi Hood, contact #[phone]. Text document was generated using [employer] voice recognition software. It may contain grammatical or spelling errors. Kindly contact undersigned for clarification of any documentation item in question. History of Present Illness Chief Complaint: Weakness, fall Primary Care Provider: Renny Abdi MD History obtained from patient and records. Medical history significant for chronic diastolic heart failure (55 to 60%, TTE 2018), hx nonocclusive CAD, hypertension, COPD, possible MIKE, DM 2 insulin requiring, history ataxia, myoclonic epilepsy as per records, possible RLS, GERD, right breast cancer status post surgery/radiotherapy, anxiety/mood disorder, overactive bladder as per records, past tobacco abuse. Last confinement April 2018 for chest pain. Nonocclusive CAD in cardiac catheterization. Patient diagnosed to have ataxia since 2019 as per patient. Unable to get out of bed on her own due to progressive balance difficulties and shuffling gait. Patient noted UTI symptoms few days ago. Patient started on Bactrim with note of quinolone resistant E. coli on outpatient urine testing. No fever, no chills. Some nausea/dry heaving symptoms, poor appetite. No chest pain, no SOB, no abdominal pain. Temperature noted to be 105 at patient's home. Patient has taken Bactrim before without issues. Patient fell at home today trying to get up from her portable toilet. No head trauma, no LOC. Achy hip pain. Noted to be hypoxemic and SBP noted to be 90s upon EMS arrival. Patient brought to the ER for evaluation. 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 Allergies Allergy/AdvReac Type Severity Reaction Status Date / Time dog dander Allergy Intermediate SNEEZING, Verified 02/25/23 21:38 ITCHING EYES & THROAT grass pollen-perennial rye, Allergy Intermediate SNEEZING, Verified 02/25/23 21:38 standar ITCHING EYES & THROAT Home Medications Medication Instructions Recorded Confirmed Type Lactobacillus acidophilus 10 mg PO BID 11/03/20 02/25/23 History acetaminophen 325 mg tablet 325 mg PO Q6 PRN Pain 11/03/20 02/25/23 History albuterol sulfate 90 mcg/actuation 2 puff inhalation Q4H PRN 11/03/20 02/25/23 History aerosol inhaler Shortness Of Breath atorvastatin 40 mg tablet 40 mg PO HS 11/03/20 02/25/23 History cetirizine 10 mg tablet (Zyrtec) 10 mg PO QAM 11/03/20 02/25/23 History fluticasone fur. 100 mcg-umeclid 1 inh inhalation QAM 11/03/20 02/25/23 History 62.5 mcg-vilant 25 mcg inhalat.powder (Trelegy Ellipta) fluticasone propionate 50 1 spray intranasal QAM 11/03/20 02/25/23 History mcg/actuation nasal spray,suspension ketoconazole 2 % topical cream 1 applic topical BID PRN Rash 11/03/20 02/25/23 History lorazepam 1 mg tablet 0.5 - 1 mg PO TID PRN Anxiety 11/03/20 02/25/23 History multivitamin 1 tab PO QAM 11/03/20 02/25/23 History nystatin 100,000 unit/gram topical 1 applic topical BID PRN Rash 11/03/20 02/25/23 History cream omeprazole 20 mg capsule,delayed 20 mg PO BID 11/03/20 02/25/23 History release oxybutynin chloride 10 mg 10 mg PO QAM 11/03/20 02/25/23 History tablet,extended release 24 hr albuterol sulfate 2.5 mg/3 mL 2.5 mg inhalation DIRECTED PRN 02/25/23 02/25/23 History (0.083 %) solution for nebulization Shortness Of Breath Or Wheezing aspirin 81 mg tablet,delayed 81 mg PO DAILY 02/25/23 02/25/23 History release cholecalciferol (vitamin D3) 25 25 mcg PO DAILY 02/25/23 02/25/23 History mcg (1,000 unit) capsule (Vitamin D3) cyanocobalamin (vitamin B-12) 100 100 mcg PO DAILY 02/25/23 02/25/23 History mcg tablet (Vitamin B-12) divalproex 500 mg tablet,delayed 500 mg PO BID 02/25/23 02/25/23 History release furosemide 20 mg tablet (Lasix) 20 mg PO QAM PRN EDEMA/WT GAIN 02/25/23 02/25/23 History insulin human U-100 NPH-regulr See Rx Instructions .Route .COMPLEX 02/25/23 02/25/23 History 70-30 mix 100 unit/mL subcutaneous susp (Novolin 70/30 U-100 Insulin) latanoprost 0.005 % eye drops 1 drp ophthalmic (eye) QPM 02/25/23 02/25/23 History metformin 500 mg tablet,extended 1,000 mg PO BID 02/25/23 02/25/23 History release 24 hr ropinirole 1 mg tablet 1 mg PO HS 02/25/23 02/25/23 History sulfamethoxazole 800 1 tab PO BID 02/25/23 02/25/23 History mg-trimethoprim 160 mg tablet Past Med/Surg History Medical History Anxiety Ataxia uses cane Chronic obstructive pulmonary disease inhaler daily/prn Diabetes mellitus, type 2 History of melanoma on back History of right breast cancer (~1997) diagnosed 1997--chemo/radiation/sx History of sepsis Hyperlipidemia Hypertension Morbid obesity with BMI of 45.0-49.9, adult Myoclonic jerking Osteoarthritis Surgical History History of appendectomy History of bilateral cataract extraction History of cardiac cath (~04/2018) @ [facility]--no stents placed History of cholecystectomy History of colonoscopy History of lumpectomy of right breast History of Mohs micrographic surgery for skin cancer History of right breast biopsy malignant History of tooth extraction Family History Brother Family hx of colon cancer Father Family hx of colon cancer Sister Family history of diabetes mellitus Family history of reaction to anesthesia "spike in BP and vomits" Daughter Family history of reaction to anesthesia nausea/vomiting/migraine Mother Family history of diabetes mellitus Brother Family history of diabetes mellitus Family hx colonic polyps Social History Smoking Status: Former smoker Smoking End Date: 2011; Second Hand Exposure: No; Do You Dip or Chew Tobacco: No; Hx Alcohol Use: No Hx Substance Use: No Preferred Language: Spanish Communication Ability: Effective Production Coordinator Required: No Beliefs That Will Affect Care: None Current Living Situation: Spouse Current Living Situation Comment: lives at home with Feels Safe at Home: Yes Safety Concerns: Feels Safe At This Time Assistive Devices: Denture - Upper, Glasses, Oxygen - Continuous and Wheelchair Review of Systems Review of Systems: As per HPI, all other systems reviewed and negative Physical Exam Physical Exam: GENERAL: Slightly uncomfortable, pleasant, morbidly obese, no respiratory distress SKIN: Normal color, warm HEENT: [place] palpebral conjunctivae, no ptosis, dry buccal mucosa, nasal cannula in place NECK : Supple, short neck, no tenderness CHEST : Decreased breath sounds, no tenderness HEART : RRR, no obvious murmurs ABDOMEN: Some distention, nontender EXTREMITIES : Minimal LE swelling, no LE tenderness, no other conspicuous deformities noted NEUROLOGIC : Coherent, no facial asymmetry, MMTS BUE 4/5, BLE 2/5, gait and stance not assessed Results & Data Results & Data Vital Signs (Past 12 Hours) Vital Signs Temp Pulse Pulse Resp BP BP Pulse Ox 02/25/23 22:00 77 16 128/84 95 02/25/23 21:31 79 02/25/23 21:12 82 18 97 02/25/23 21:00 81 16 102/78 95 02/25/23 20:38 78 18 121/75 96 02/25/23 17:44 95 H 02/25/23 17:47 93 02/25/23 17:42 37.1 C 96 H 20 125/76 90 O2 Del Method O2 Flow Rate 02/25/23 22:00 Nasal Cannula 3 02/25/23 21:31 02/25/23 21:12 Nasal Cannula 3 02/25/23 21:00 Nasal Cannula 3 02/25/23 20:38 Nasal Cannula 2 02/25/23 17:44 02/25/23 17:47 Nasal Cannula 2 02/25/23 17:42 Room Air Laboratory Results Laboratory Results WBC 10.94 K/ul (4.8-10.8) H 02/25/23 18:59 RBC 5.15 M/uL (4.20-5.40) 02/25/23 18:59 Hgb 13.7 g/dl (12.0-16.0) 02/25/23 18:59 POC Hgb 13.9 g/dl (12.0-16.0) 02/25/23 19:17 Hct 41.3 % (37.0-47.0) 02/25/23 18:59 POC Hct 41 % (37-47) 02/25/23 19:17 MCV 80.2 fL (80.0-100.0) 02/25/23 18:59 MCH 26.6 pg (25.0-34.0) 02/25/23 18:59 MCHC 33.2 g/dL (32.0-36.0) 02/25/23 18:59 RDW Std Deviation 46.3 fL (36.4-46.3) 02/25/23 18:59 RDW Coeff of [place] 15.9 % (11.5-14.5) H 02/25/23 18:59 Plt Count 237 K/uL (130-400) 02/25/23 18:59 MPV 9.6 fL (9.4-12.4) 02/25/23 18:59 Immature Gran % (Auto) 0.5 % 02/25/23 18:59 Neut % (Auto) 87.7 % 02/25/23 18:59 Lymph % (Auto) 5.0 % 02/25/23 18:59 [place] % (Auto) 6.4 % 02/25/23 18:59 Eos % (Auto) 0.2 % 02/25/23 18:59 Baso % (Auto) 0.2 % 02/25/23 18:59 Neut # (Auto) 9.59 K/uL (1.40-6.50) H 02/25/23 18:59 Lymph # (Auto) 0.55 K/uL (1.2-3.4) L 02/25/23 18:59 [place]bert # (Auto) 0.70 K/uL (0.11-0.59) H 02/25/23 18:59 Eos # (Auto) 0.02 K/uL (0-0.50) 02/25/23 18:59 Baso # (Auto) 0.02 K/uL (0-0.2) 02/25/23 18:59 Immature Gran # (Auto) 0.06 K/uL (0.01-0.20) 02/25/23 18:59 PT 11.0 Seconds (9.0-12.0) 02/25/23 18:59 INR 1.0 (0.9-1.1) 02/25/23 18:59 APTT 26.5 Seconds (21.0-31.0) 02/25/23 18:59 PTT Ratio 0.9 02/25/23 18:59 VBG pH 7.40 (7.36-7.41) 02/25/23 18:59 VBG pCO2 42 mmHg (38-50) 02/25/23 18:59 VBG pO2 41 mmHg 02/25/23 18:59 VBG HCO3 26 mmol/L 02/25/23 18:59 VBG O2 Saturation 65.5 % 02/25/23 18:59 VBG Base Excess 1.0 mEq/L 02/25/23 18:59 POC Sodium 136 mmol/L (135-144) 02/25/23 19:17 Sodium 135 mmol/L (136-145) L 02/25/23 18:59 POC Potassium 4.2 mmol/L (3.3-5.0) 02/25/23 19:17 Potassium 4.4 mmol/L (3.5-5.1) 02/25/23 18:59 POC Chloride 100 mmol/L (101-112) L 02/25/23 19:17 Chloride 101 mmol/L (98-107) 02/25/23 18:59 Carbon Dioxide 25 mmol/L (21-32) 02/25/23 18:59 POC Total CO2 22 mmol/L (24-31) L 02/25/23 19:17 Anion Gap 9 (3-11) 02/25/23 18:59 POC Anion Gap 20.0 mmol/L (16-25) 02/25/23 19:17 POC BUN 10 mg/dl (7-18) 02/25/23 19:17 BUN 11 mg/dl (6-23) 02/25/23 18:59 Creatinine 0.71 mg/dl (0.6-1.2) 02/25/23 18:59 POC Creatinine 0.6 mg/dl (0.6-1.3) 02/25/23 19:17 Est Cr Clr Drug Dosing 85.1 ml/min 02/25/23 18:59 Est GFR ( Amer) 98.6 ml/min 02/25/23 18:59 Est GFR (Non-Af Amer) 85.1 ml/min 02/25/23 18:59 BUN/Creatinine Ratio 15.5 (10-20) 02/25/23 18:59 Glucose 168 mg/dl (70-99(Fasting)) H 02/25/23 18:59 POC Glucose (other) 170 mg/dl (70-99) H 02/25/23 19:17 Lactate 1.5 mmol/L (0.4-2.0) 02/25/23 18:59 Calcium 9.2 mg/dl (8.6-10.3) 02/25/23 18:59 POC Ioniz Calcium Cheryl 1.17 mmol/l (1.12-1.32) 02/25/23 19:17 Magnesium 1.9 mg/dl (1.7-2.4) 02/25/23 18:59 Total Bilirubin 0.7 mg/dl (0.2-1.0) 02/25/23 18:59 Direct Bilirubin 0.2 mg/dl (0-0.2) 02/25/23 18:59 AST 41 U/L (13-39) H 02/25/23 18:59 ALT 49 U/L (7-52) 02/25/23 18:59 Alkaline Phosphatase 157 U/L (34-104) H 02/25/23 18:59 Ammonia 23.0 umol/L (18-72) 02/25/23 18:59 Total Creatine Kinase 62 U/L (26-192) 02/25/23 21:41 Troponin I High Sens 35.5 pg/ml (0-14) H D 02/25/23 21:41 Total Protein 7.2 gm/dl (6.0-8.3) 02/25/23 18:59 Albumin 3.8 gm/dl (3.4-5.0) 02/25/23 18:59 Procalcitonin 0.50 ng/ml (0-0.5) 02/25/23 18:59 Urine Color Yellow 02/25/23 20:25 Urine Appearance Clear (Clear) 02/25/23 20: Urine pH 6.0 (4.5-7.5) 02/25/23 20:25 Ur Specific [place] > 1.045 (1.000-1.030) H 02/25/23 20:25 Urine Protein Trace (Negative) H 02/25/23 20:25 Urine Glucose (UA) Negative (Negative) 02/25/23 20:25 Urine Ketones 2+ (Negative) H 02/25/23 20:25 Urine Blood Negative (Negative) 02/25/23 20:25 Urine Nitrite Negative (Negative) 02/25/23 20:25 Urine Bilirubin Negative (Negative) 02/25/23 20:25 Urine Urobilinogen Negative (Negative) 02/25/23 20:25 Ur Leukocyte Esterase Negative (Negative) 02/25/23 20:25 Urine WBC (Auto) 1-5 /hpf (0-5) 02/25/23 20:25 Urine RBC (Auto) 0-4 /hpf (0-4) 02/25/23 20:25 U Hyaline Cast (Auto) 1-5 /lpf (0-5) 02/25/23 20:25 U Epithel Cells (Auto) >30 /lpf (0-5) H 02/25/23 20:25 Urine Bacteria (Auto) Negative (Negative) 02/25/23 20:25 Valproic Acid 34 mcg/ml (50-100) L 02/25/23 21:41 SARS-CoV-2 (PCR) NEGATIVE (Negative) 02/25/23 20:25 Influenza Type A (PCR) Negative (Neg) 02/25/23 20:25 Influenza Type B (PCR) Negative (Neg) 02/25/23 20:25 RSV (RT-PCR) Negative (Neg) 02/25/23 20:25 Impressions Chest X-Ray 02/25/23 18:23 XR chest 1V portable HISTORY: Sepsis COMPARISON: Chest 04/18/2018. FINDINGS: There are low lung volumes. No pneumothorax. There is mild central pulmonary vascular congestion without overt edema. No pleural effusions. No focal lung consolidations to suggest a pneumonia. Prior cholecystectomy. Calcifications within the aortic knob. Elevation of the right hemidiaphragm, unchanged. No acute fractures identified. IMPRESSION: Mild cardiomegaly and mild central pulmonary vascular congestion. ACT 112: Negative or not required by law. Electronically signed by: Phu Almeida M.D. 02/25/2023 8:08 PM Abdomen/Pelvis CT 02/25/23 18:[address] WITH IV CONTRAST CT DOSE: HISTORY: fall TECHNIQUE: Multiaxial CT images of the abdomen and pelvis were performed following the use of intravenous contrast. A dose lowering technique was utilized adhering to the principles of ALARA. COMPARISON STUDY: Abdomen and pelvis CT 05/09/2014. FINDINGS: Mild elevation of the right hemidiaphragm. Bibasilar linear densities consistent with subsegmental atelectasis. No pneumoperitoneum. No pneumatosis. Stable 9 mm sclerotic focus within the left posterior 12th rib. This likely represents a bone island given the long-term stability. No acute fractures identified. Prior cholecystectomy. The liver, pancreas, spleen, adrenal glands, and kidneys are unremarkable. No hydronephrosis. The main portal vein is patent. There is a mildly enlarged portacaval lymph node, unchanged. This is likely benign given the long-term stability. Otherwise, no retroperitoneal or pelvic lymphadenopathy. Moderate calcified plaque within the normal caliber abdominal aorta. No pelvic free fluid. The bladder is decompressed. A 2 cm calcified uterine fibroid is noted. The ovaries are unremarkable. Colonic diverticulosis. No evidence for acute diverticulitis. No bowel wall thickening or obstruction. IMPRESSION: 1. No acute traumatic process within the abdomen or pelvis. 2. No bowel wall thickening or obstruction. 3. Prior cholecystectomy. 4. Additional findings as described above. ACT 112: Negative or not required by law. Electronically signed by: Phu Almeida M.D. 02/25/2023 8:[address] 02/25/23 18:[address] DOSE: HISTORY: fall TECHNIQUE: Multiaxial CT images of the cervical spine were performed and reformatted in the sagittal and coronal plane without the use of contrast. A dose lowering technique was utilized adhering to the principles of ALARA. COMPARISON: None. FINDINGS: No fractures. No subluxation. Prevertebral soft tissues and the C1-C2 interval are intact. No pneumothorax. There is a coarse calcification within the left thyroid lobe and a 9 mm hypodense nodule. This does not meet CT criteria for follow-up. IMPRESSION: No fractures within the cervical spine. ACT 112: Negative or not required by law. Electronically signed by: Phu Almeida M.D. 02/25/2023 7:48 PM Chest CTA 02/25/23 18:24 CHEST CTA for PULMONARY ARTERIES CT DOSE: 3638.75 mGy.cm HISTORY: fall hypoxia immobile ro pe TECHNIQUE: Multiaxial CT images of the chest were performed following the intravenous administration of contrast to evaluate the pulmonary arteries. Maximal intensity projection images were also obtained. A dose lowering technique was utilized adhering to the principles of ALARA. COMPARISON STUDY: None. FINDINGS: There is a 1 cm sclerotic lesion within the right side of the T4 vertebral body. No acute fractures within the chest. The central airways are patent. No pneumothorax. No pleural effusions. There are low lung volumes with mild elevation the right hemidiaphragm. Bibasilar linear densities favor subsegmental atelectasis. Otherwise, no focal lung consolidations to suggest a pneumonia. No evidence for pulmonary edema. A 9 mm left thyroid nodules again noted. Normal esophagus. No mediastinal or hilar lymphadenopathy. The heart is mildly enlarged. No pericardial effusion. Calcified plaque within the normal caliber thoracic aorta. No evidence for an aortic dissection. There are moderate to severe coronary artery calcifications noted. No filling defects within the pulmonary arteries to suggest a pulmonary embolus. IMPRESSION: 1. No evidence for a pulmonary embolus. 2. Cardiomegaly. 3. Bibasilar linear densities favor subsegmental atelectasis. Otherwise, no focal lung consolidations to suggest a pneumonia. 4. No acute traumatic process within the chest. 5. A 1 cm indeterminate sclerotic lesion within the right side of the T4 vertebral body. Follow-up nonemergent bone scan recommended to exclude a metabolically active lesion. ACT 112: Positive. There are findings on this exam that require communication between the performing entity and the patient following Patient Test Result Information Act ([place] Act 112) guidelines. Electronically signed by: Phu Almeida M.D. 02/25/2023 7:[address] 02/25/23 18:[address] DOSE: HISTORY: Head injury. fall TECHNIQUE: Multiaxial CT images of the head were performed without the use of intravenous contrast. Automated exposure control was utilized for this study. A dose lowering technique was utilized adhering to the principles of ALARA. Comparison: Head CT 04/19/2018. Findings: The paranasal sinuses and mastoid air cells are clear. The calvarium and skull base are intact. There is no mass, hematoma, midline shift, acute infarct. White matter hypodensity is nonspecific but suggestive of microvascular ischemic change. The ventricles and sulci demonstrate mild age-related involutional changes. Motion artifact. Impression: Motion artifact. No definite acute intracranial abnormality. ACT 112: Negative or not required by law. Electronically signed by: Phu Almeida M.D. 02/25/2023 7:45 PM Pelvis X-Ray 02/25/23 18:25 XR pelvis 1-2V routine CLINICAL HISTORY: fall. Pelvic pain. COMPARISON STUDY: None. FINDINGS: No fracture or dislocation within the pelvis or hips. The sacrum is intact. Soft tissues are unremarkable. There is contrast within the urinary system from the recent CT examination. IMPRESSION: No fracture or dislocation within the pelvis or hips. ACT 112: Negative or not required by law. Electronically signed by: Phu Almeida M.D. 02/25/2023 8:09 PM Diagnostic Findings EKG as per my interpretation :Rate 90, NSR, LAD, LAFB, incomplete RBBB, LVH, nonspecific T wave abnormalities
[2023-02-25] MEDS ORDERED: PROMETHAZINE HCL 12.5 MG in SODIUM CHLORIDE 0.9% 50 ML IV PRN (23:08)
[2023-02-26] MEDS ORDERED: GLUCOSE 10 TAB/TUBE PO PRN (00:37)
[2023-02-26] MEDS ORDERED: GLUCOSE 40% GEL 15 GM TUBE PO PRN (00:37)
[2023-02-26] MEDS ORDERED: LORazepam 0.5 MG TAB PO PRN ×2 (00:37)
[2023-02-26] MEDS ORDERED: DEXTROSE 50% 50 ML SYRINGE IV PRN (00:37)
[2023-02-26] MEDS ORDERED: GLUCAGON FOR INJ 1 MG VIAL SQ PRN (00:37)
[2023-02-26] MEDS ORDERED: CARBOHYDRATES FOR HYPOGLYCEMIA PO PRN (00:37)
[2023-02-26] MEDS: oxyCODONE HCL IR 5 MG TAB (IMMEDIATE RELEASE) PO PRN ×3 (00:41→19:26)
[2023-02-26] MEDS: LATANOPROST 0.005% OP SOLN 2.5 ML BTL OP SCH ×2 (01:08→21:49)
[2023-02-26] MEDS: DIVALPROEX DELAY RELEASE 500 MG TAB PO SCH ×3 (01:10→21:50)
[2023-02-26] MEDS: INSULIN ASPART PER UNIT CHARGE SC SCH ×5 (01:17→21:49)
[2023-02-26] MEDS: MELATONIN 3 MG TAB PO PRN ×2 (01:19→21:54)
[2023-02-26 06:35] LABS: Basophils # (auto) 0.04 K/uL (0-0.2); Basophils % (auto) 0.4 %; Eosinophils # (auto) 0.12 K/uL (0-0.50); Eosinophils % (auto) 1.2 %; Hematocrit (blood only) 37.5 % (37.0-47.0); Hemoglobin 12.3 g/dl (12.0-16.0); Immature Granulocytes # (auto) 0.07 K/uL (0.01-0.20); Immature Granulocytes % (auto) 0.7 %; Lymphocytes # (auto) 1.52 K/uL (1.2-3.4); Lymphocytes % (auto) 15.3 %; Mean Corpuscular Hemoglobin 26.3 pg (25.0-34.0); Mean Corpuscular Hgb Conc 32.8 g/dL (32.0-36.0); Mean Corpuscular Volume 80.1 fL (80.0-100.0); Mean Platelet Volume 9.8 fL (9.4-12.4); Monocytes # (auto) 0.93 K/uL (0.11-0.59); Monocytes % (auto) 9.4 %; Neutrophils # (auto) 7.26 K/uL (1.40-6.50); Platelet Count 254 K/uL (130-400); RDW Standard Deviation 46.5 fL (36.4-46.3); Red Blood Count 4.68 M/uL (4.20-5.40); White Blood Count 9.94 K/ul (4.8-10.8)
[2023-02-26 06:36] LABS: BUN Creatinine Ratio 22.8 (10-20); Calcium 8.7 mg/dl (8.6-10.3); Creatinine Clr Calc Pharmacy 92.8 ml/min; Est GFR (African American) 107.3 ml/min; Est GFR (Non-African American) 92.6 ml/min; Potassium 4.2 mmol/L (3.5-5.1)
[2023-02-26] MEDS: UMECLIDINIUM/VILANTEROL 62.5/25MCG 7 PUFFS/INHALER INH SCH (08:04)
[2023-02-26] MEDS: FLUTICASONE FUROATE 100MCG 14 PUFFS/INHALER INH SCH (08:04)
[2023-02-26] MEDS: ENOXAPARIN INJ 40 MG/0.4 ML SYR SQ SCH (08:06)
[2023-02-26] MEDS: FLUTICASONE PROPIONATE NA SPR 16 GM BTL SCH (08:06)
[2023-02-26] MEDS: ASPIRIN 81 MG ECTAB PO SCH (08:06)
[2023-02-26] MEDS: PANTOprazole 40 MG TAB PO SCH ×2 (08:07→21:50)
[2023-02-26] MEDS: ADVANCED PROBIOTIC 1250 MG CAPSULE PO SCH ×2 (08:07→21:50)
[2023-02-26] MEDS: MULTIVITAMIN TAB PO SCH (08:07)
[2023-02-26] MEDS: CETIRIZINE HCL 10 MG TABLET PO SCH (08:07)
[2023-02-26] MEDS: CYANOCOBALAMIN (B-12) 100 MCG TABLET PO SCH (08:07)
[2023-02-26] MEDS: LANTUS PER UNIT CHARGE SQ SCH (08:17)
[2023-02-26] MEDS ORDERED: ACETAMINOPHEN 1,000 MG/100 ML VIAL IV STA (08:25)
--- NOTE | 2023-02-26 11:08 | Electrocardiogram Report ---
Test Reason : Blood Pressure : / mmHG Vent. Rate : 092 BPM Atrial Rate : 092 BPM P-R Int : 162 ms QRS Dur : 098 ms QT Int : 362 ms P-R-T Axes : 048 -10 008 degrees QTc Int : 447 ms Normal sinus rhythm Minimal voltage criteria for LVH, may be normal variant ( R in aVL ) Poor R wave progression, consider anterior MA vs. lead placement vs. LVH Abnormal ECG When compared with ECG of 19-APR-2018 06:33, Nonspecific T wave abnormality now evident in Anterior leads Confirmed by Hany Jefferson ([id number]) on 02/26/2023 11:07:33 AM Referred By: Renny Abdi Confirmed By:Hany Jefferson
[2023-02-26] MEDS: tiZANidine HCL 4 MG TABLET PO PRN ×2 (12:35→18:09)
--- NOTE | 2023-02-26 12:45 | Hospitalist Progress Note ---
Date of Service February 26, 2023 Assessment & Plan (1) Hypoxia: (2) Recurrent falls: (3) Elevated troponin: Plan Patient is a 73-year-old female with history of ataxia presents to the hospital after mechanical fall. Recently completed course of Bactrim for UTI. Denies chest pain or shortness of breath. Seen by neurology; Dr. Del Castillo in December 20. No clear cause for ataxia; had recommended MRI brain but patient has significant claustrophobia. He recommended restarting Requip 0.5mg twice daily for restless leg syndrome. Imagings done in the ED after presentation CT head reviewedno acute intracranial abnormality CTA chest reviewed; no PE. Cardiomegaly. 1 cm indeterminate sclerotic lesion within right side of the T4 vertebral body. Follow-up nonemergent bone scan recommended. Pelvic x-ray reviewed; no acute fracture or dislocation Abdominal CT reviewed; no significant finding Labs reviewed; no leukocytosis. BMP unremarkable Echocardiogram done; normal biventricular function. Grossly normal valvular structure and function Pain control. Zanaflex added for spasms. PT OT evaluation Patient denies chest pain, SOB Possibly chronic Rule out pulmonary hypertension given history COPD/MIKE as per records Chronic condition DM 2 insulin requiring, well-controlled as of hemoglobin A1c of 5.6 last December 2021. Hold home metformin. Worsening ambulatory dysfunction secondary to illness, history ataxia as per records possible RLS, unimproved on current ropinirole regimen Right breast cancer status post surgery/radiotherapy, currently in remission anxiety/mood disorder, stable past tobacco abuse Full code DVT prophylaxis Lovenox Time spent evaluating patient, direct bedside care, chart review, placing orders, interpretation of diagnostic studies, patient as well as other required patient management activities is 60 minutes. Please note the above document was generated using voice recognition software. It may contain grammatical, syntax or spelling errors. Any formal questions or concerns about the content, text or information contained within the body of this dictation should be directly addressed to the provider for clarification Admission and Anticipated Discharge Date Admission Date: February 25, 2023 Subjective Seen and examined at bedside. She reports back pain; denies fever, chills, chest pain or shortness of breath. Review of Systems Review of Systems: All systems reviewed & are unremarkable except as noted in Subjective Physical Exam Physical Exam: Constitutional: WD/WN, vitals as above, NAD, sitting up in bed, pleasant, conver sing easily Respiratory: normal respiratory effort, lungs clear to auscultation, no wheeze, rales, rhonchi. Normal insp/exp effort, no accessory muscle use Cardiovascular: RRR, no murmur, no edema Vessels: no JVD or carotid bruit Chest: normal inspection of chest Abdomen: normal bowel sounds, soft, nontender, no hepatosplenomegaly Musculoskeletal: no cyanosis or clubbing Skin: no rashes, warm and dry normal turgor Neurologic: Cranial nerves II to XII intact, muscle strength in bilateral upper extremity 4/5, bilateral lower extremity weaker compared to upper extremity. Psychiatric: A+Ox3, euthymic affect Results & Data Results & Data Vital Signs (Past 12 Hours) Vital Signs Temp Pulse Resp BP Pulse Ox O2 Del Method O2 Flow Rate 02/26/23 11:56 Nasal Cannula 2 02/26/23 10:47 36.8 C 85 16 112/69 95 Nasal Cannula 2 02/26/23 07:51 36.8 C 85 16 125/75 95 Nasal Cannula 2 02/26/23 03:31 36.7 C 73 20 104/67 95 Nasal Cannula 4 02/26/23 02:07 36.8 C 79 20 104/71 95 Nasal Cannula 4 02/26/23 01:57 Nasal Cannula 2 02/26/23 01:42 Nasal Cannula 2 Laboratory Results Laboratory Results WBC 9.94 K/ul (4.8-10.8) 02/26/23 05:48 RBC 4.68 M/uL (4.20-5.40) 02/26/23 05:48 Hgb 12.3 g/dl (12.0-16.0) 02/26/23 05:48 POC Hgb 13.9 g/dl (12.0-16.0) 02/25/23 19:17 Hct 37.5 % (37.0-47.0) 02/26/23 05:48 POC Hct 41 % (37-47) 02/25/23 19:17 MCV 80.1 fL (80.0-100.0) 02/26/23 05:48 MCH 26.3 pg (25.0-34.0) 02/26/23 05:48 MCHC 32.8 g/dL (32.0-36.0) 02/26/23 05:48 RDW Std Deviation 46.5 fL (36.4-46.3) H 02/26/23 05:48 RDW Coeff of [place] 16.0 % (11.5-14.5) H 02/26/23 05:48 Plt Count 254 K/uL (130-400) 02/26/23 05:48 MPV 9.8 fL (9.4-12.4) 02/26/23 05:48 Immature Gran % (Auto) 0.7 % 02/26/23 05:48 Neut % (Auto) 73.0 % 02/26/23 05:48 Lymph % (Auto) 15.3 % 02/26/23 05:48 Leon % (Auto) 9.4 % 02/26/23 05:48 Eos % (Auto) 1.2 % 02/26/23 05:48 Baso % (Auto) 0.4 % 02/26/23 05:48 Neut # (Auto) 7.26 K/uL (1.40-6.50) H 02/26/23 05:48 Lymph # (Auto) 1.52 K/uL (1.2-3.4) 02/26/23 05:48 Leon # (Auto) 0.93 K/uL (0.11-0.59) H 02/26/23 05:48 Eos # (Auto) 0.12 K/uL (0-0.50) 02/26/23 05:48 Baso # (Auto) 0.04 K/uL (0-0.2) 02/26/23 05:48 Immature Gran # (Auto) 0.07 K/uL (0.01-0.20) 02/26/23 05:48 PT 11.0 Seconds (9.0-12.0) 02/25/23 18:59 INR 1.0 (0.9-1.1) 02/25/23 18:59 APTT 26.5 Seconds (21.0-31.0) 02/25/23 18:59 PTT Ratio 0.9 02/25/23 18:59 VBG pH 7.40 (7.36-7.41) 02/25/23 18:59 VBG pCO2 42 mmHg (38-50) 02/25/23 18:59 VBG pO2 41 mmHg 02/25/23 18:59 VBG HCO3 26 mmol/L 02/25/23 18:59 VBG O2 Saturation 65.5 % 02/25/23 18:59 VBG Base Excess 1.0 mEq/L 02/25/23 18:59 POC Sodium 136 mmol/L (135-144) 02/25/23 19:17 Sodium 137 mmol/L (136-145) 02/26/23 05:48 POC Potassium 4.2 mmol/L (3.3-5.0) 02/25/23 19:17 Potassium 4.2 mmol/L (3.5-5.1) 02/26/23 05:48 POC Chloride 100 mmol/L (101-112) L 02/25/23 19:17 Chloride 105 mmol/L (98-107) 02/26/23 05:48 Carbon Dioxide 24 mmol/L (21-32) 02/26/23 05:48 POC Total CO2 22 mmol/L (24-31) L 02/25/23 19:17 Anion Gap 8 (3-11) 02/26/23 05:48 POC Anion Gap 20.0 mmol/L (16-25) 02/25/23 19:17 POC BUN 10 mg/dl (7-18) 02/25/23 19:17 BUN 13 mg/dl (6-23) 02/26/23 05:48 Creatinine 0.57 mg/dl (0.6-1.2) L 02/26/23 05:48 POC Creatinine 0.6 mg/dl (0.6-1.3) 02/25/23 19:17 Est Cr Clr Drug Dosing 92.8 ml/min 02/26/23 05:48 Est GFR ( Amer) 107.3 ml/min 02/26/23 05:48 Est GFR (Non-Af Amer) 92.6 ml/min 02/26/23 05:48 BUN/Creatinine Ratio 22.8 (10-20) H 02/26/23 05:48 Glucose 99 mg/dl (70-99(Fasting)) 02/26/23 05:48 POC Glucose 115 mg/dl (70-99) H 02/26/23 11:21 POC Glucose (other) 170 mg/dl (70-99) H 02/25/23 19:17 Lactate 1.5 mmol/L (0.4-2.0) 02/25/23 18:59 Calcium 8.7 mg/dl (8.6-10.3) 02/26/23 05:48 POC Ioniz Calcium Cheryl 1.17 mmol/l (1.12-1.32) 02/25/23 19:17 Magnesium 1.9 mg/dl (1.7-2.4) 02/25/23 18:59 Total Bilirubin 0.7 mg/dl (0.2-1.0) 02/25/23 18:59 Direct Bilirubin 0.2 mg/dl (0-0.2) 02/25/23 18:59 AST 41 U/L (13-39) H 02/25/23 18:59 ALT 49 U/L (7-52) 02/25/23 18:59 Alkaline Phosphatase 157 U/L (34-104) H 02/25/23 18:59 Ammonia 23.0 umol/L (18-72) 02/25/23 18:59 Total Creatine Kinase 62 U/L (26-192) 02/25/23 21:41 Troponin I High Sens 35.5 pg/ml (0-14) H D 02/25/23 21:41 Total Protein 7.2 gm/dl (6.0-8.3) 02/25/23 18:59 Albumin 3.8 gm/dl (3.4-5.0) 02/25/23 18:59 Procalcitonin 0.50 ng/ml (0-0.5) 02/25/23 18:59 TSH 3.069 uIu/ml (0.300-4.500) 02/25/23 18:59 Urine Color Yellow 02/25/23 20:25 Urine Appearance Clear (Clear) 02/25/23 20:25 Urine pH 6.0 (4.5-7.5) 02/25/23 20:25 Ur Specific [place] > 1.045 (1.000-1.030) H 02/25/23 20:25 Urine Protein Trace (Negative) H 02/25/23 20:25 Urine Glucose (UA) Negative (Negative) 02/25/23 20:25 Urine Ketones 2+ (Negative) H 02/25/23 20:25 Urine Blood Negative (Negative) 02/25/23 20:25 Urine Nitrite Negative (Negative) 02/25/23 20:25 Urine Bilirubin Negative (Negative) 02/25/23 20:25 Urine Urobilinogen Negative (Negative) 02/25/23 20:25 Ur Leukocyte Esterase Negative (Negative) 02/25/23 20:25 Urine WBC (Auto) 1-5 /hpf (0-5) 02/25/23 20:25 Urine RBC (Auto) 0-4 /hpf (0-4) 02/25/23 20:25 U Hyaline Cast (Auto) 1-5 /lpf (0-5) 02/25/23 20:25 U Epithel Cells (Auto) >30 /lpf (0-5) H 02/25/23 20:25 Urine Bacteria (Auto) Negative (Negative) 02/25/23 20:25 Valproic Acid 34 mcg/ml (50-100) L 02/25/23 21:41 SARS-CoV-2 (PCR) NEGATIVE (Negative) 02/25/23 20:25 Influenza Type A (PCR) Negative (Neg) 02/25/23 20:25 Influenza Type B (PCR) Negative (Neg) 02/25/23 20:25 RSV (RT-PCR) Negative (Neg) 02/25/23 20:25 Impressions Chest X-Ray 02/25/23 18:23 XR chest 1V portable HISTORY: Sepsis COMPARISON: Chest 04/18/2018. FINDINGS: There are low lung volumes. No pneumothorax. There is mild central pulmonary vascular congestion without overt edema. No pleural effusions. No focal lung consolidations to suggest a pneumonia. Prior cholecystectomy. Calcifications within the aortic knob. Elevation of the right hemidiaphragm, unchanged. No acute fractures identified. IMPRESSION: Mild cardiomegaly and mild central pulmonary vascular congestion. ACT 112: Negative or not required by law. Electronically signed by: Phu Almeida M.D. 02/25/2023 8:08 PM Abdomen/Pelvis CT 02/25/23 18:[address] WITH IV CONTRAST CT DOSE: HISTORY: fall TECHNIQUE: Multiaxial CT images of the abdomen and pelvis were performed following the use of intravenous contrast. A dose lowering technique was utilized adhering to the principles of ALARA. COMPARISON STUDY: Abdomen and pelvis CT 05/09/2014. FINDINGS: Mild elevation of the right hemidiaphragm. Bibasilar linear densities consistent with subsegmental atelectasis. No pneumoperitoneum. No pneumatosis. Stable 9 mm sclerotic focus within the left posterior 12th rib. This likely represents a bone island given the long-term stability. No acute fractures identified. Prior cholecystectomy. The liver, pancreas, spleen, adrenal glands, and kidneys are unremarkable. No hydronephrosis. The main portal vein is patent. There is a mildly enlarged portacaval lymph node, unchanged. This is likely benign given the long-term stability. Otherwise, no retroperitoneal or pelvic lymphadenopathy. Moderate calcified plaque within the normal caliber abdominal aorta. No pelvic free fluid. The bladder is decompressed. A 2 cm calcified uterine fibroid is noted. The ovaries are unremarkable. Colonic diverticulosis. No evidence for acute diverticulitis. No bowel wall thickening or obstruction. IMPRESSION: 1. No acute traumatic process within the abdomen or pelvis. 2. No bowel wall thickening or obstruction. 3. Prior cholecystectomy. 4. Additional findings as described above. ACT 112: Negative or not required by law. Electronically signed by: Phu Almeida M.D. 02/25/2023 8:[address] 02/25/23 18:[address] DOSE: HISTORY: fall TECHNIQUE: Multiaxial CT images of the cervical spine were performed and reformatted in the sagittal and coronal plane without the use of contrast. A dose lowering technique was utilized adhering to the principles of ALARA. COMPARISON: None. FINDINGS: No fractures. No subluxation. Prevertebral soft tissues and the C1-C2 interval are intact. No pneumothorax. There is a coarse calcification within the left thyroid lobe and a 9 mm hypodense nodule. This does not meet CT criteria for follow-up. IMPRESSION: No fractures within the cervical spine. ACT 112: Negative or not required by law. Electronically signed by: Phu Almeida M.D. 02/25/2023 7:48 PM Chest CTA 02/25/23 18:24 CHEST CTA for PULMONARY ARTERIES CT DOSE: 3638.75 mGy.cm HISTORY: fall hypoxia immobile ro pe TECHNIQUE: Multiaxial CT images of the chest were performed following the intravenous administration of contrast to evaluate the pulmonary arteries. Maximal intensity projection images were also obtained. A dose lowering technique was utilized adhering to the principles of ALARA. COMPARISON STUDY: None. FINDINGS: There is a 1 cm sclerotic lesion within the right side of the T4 vertebral body. No acute fractures within the chest. The central airways are patent. No pneumothorax. No pleural effusions. There are low lung volumes with mild elevation the right hemidiaphragm. Bibasilar linear densities favor subsegmental atelectasis. Otherwise, no focal lung consolidations to suggest a pneumonia. No evidence for pulmonary edema. A 9 mm left thyroid nodules again noted. Normal esophagus. No mediastinal or hilar lymphadenopathy. The heart is mildly enlarged. No pericardial effusion. Calcified plaque within the normal caliber thoracic aorta. No evidence for an aortic dissection. There are moderate to severe coronary artery calcifications noted. No filling defects within the pulmonary arteries to suggest a pulmonary embolus. IMPRESSION: 1. No evidence for a pulmonary embolus. 2. Cardiomegaly. 3. Bibasilar linear densities favor subsegmental atelectasis. Otherwise, no focal lung consolidations to suggest a pneumonia. 4. No acute traumatic process within the chest. 5. A 1 cm indeterminate sclerotic lesion within the right side of the T4 vertebral body. Follow-up nonemergent bone scan recommended to exclude a metabolically active lesion. ACT 112: Positive. There are findings on this exam that require communication between the performing entity and the patient following Patient Test Result Information Act ([place] Act 112) guidelines. Electronically signed by: Phu Almeida M.D. 02/25/2023 7:[address] 02/25/23 18:[address] DOSE: HISTORY: Head injury. fall TECHNIQUE: Multiaxial CT images of the head were performed without the use of intravenous contrast. Automated exposure control was utilized for this study. A dose lowering technique was utilized adhering to the principles of ALARA. Comparison: Head CT 04/19/2018. Findings: The paranasal sinuses and mastoid air cells are clear. The calvarium and skull base are intact. There is no mass, hematoma, midline shift, acute infarct. White matter hypodensity is nonspecific but suggestive of microvascular ischemic change. The ventricles and sulci demonstrate mild age-related involutional changes. Motion artifact. Impression: Motion artifact. No definite acute intracranial abnormality. ACT 112: Negative or not required by law. Electronically signed by: Phu Almeida M.D. 02/25/2023 7:45 PM Pelvis X-Ray 02/25/23 18:25 XR pelvis 1-2V routine CLINICAL HISTORY: fall. Pelvic pain. COMPARISON STUDY: None. FINDINGS: No fracture or dislocation within the pelvis or hips. The sacrum is intact. Soft tissues are unremarkable. There is contrast within the urinary system from the recent CT examination. IMPRESSION: No fracture or dislocation within the pelvis or hips. ACT 112: Negative or not required by law. Electronically signed by: Phu Almeida M.D. 02/25/2023 8:09 PM
[2023-02-26] MEDS: ATORVASTATIN 40 MG TAB PO SCH (21:50)
[2023-02-26] MEDS: rOPINIRole HCL 1 MG TABLET PO SCH (21:50)
[2023-02-26] MEDS: NYSTATIN POWDER 15GM BTL EXT PRN (21:51)
[2023-02-27] MEDS: tiZANidine HCL 4 MG TABLET PO PRN ×2 (03:46→15:20)
[2023-02-27] MEDS: oxyCODONE HCL IR 5 MG TAB (IMMEDIATE RELEASE) PO PRN ×2 (05:59→20:15)
[2023-02-27 08:05] LABS: Estimated Average Glucose 126 mg/dl
[2023-02-27] MEDS: FLUTICASONE PROPIONATE NA SPR 16 GM BTL SCH (08:06)
[2023-02-27] MEDS: FLUTICASONE FUROATE 100MCG 14 PUFFS/INHALER INH SCH (08:06)
[2023-02-27] MEDS: UMECLIDINIUM/VILANTEROL 62.5/25MCG 7 PUFFS/INHALER INH SCH (08:06)
[2023-02-27] MEDS: PANTOprazole 40 MG TAB PO SCH ×2 (08:07→20:19)
[2023-02-27] MEDS: CYANOCOBALAMIN (B-12) 100 MCG TABLET PO SCH (08:07)
[2023-02-27] MEDS: ENOXAPARIN INJ 40 MG/0.4 ML SYR SQ SCH (08:07)
[2023-02-27] MEDS: MULTIVITAMIN TAB PO SCH (08:07)
[2023-02-27] MEDS: CETIRIZINE HCL 10 MG TABLET PO SCH (08:07)
[2023-02-27] MEDS: ASPIRIN 81 MG ECTAB PO SCH (08:07)
[2023-02-27] MEDS: DIVALPROEX DELAY RELEASE 500 MG TAB PO SCH ×2 (08:07→20:19)
[2023-02-27] MEDS: ADVANCED PROBIOTIC 1250 MG CAPSULE PO SCH ×2 (08:07→20:19)
[2023-02-27] MEDS: INSULIN ASPART PER UNIT CHARGE SC SCH ×4 (08:14→20:55)
[2023-02-27] MEDS: LANTUS PER UNIT CHARGE SQ SCH (08:15)
[2023-02-27] MEDS: NYSTATIN POWDER 15GM BTL EXT PRN (11:35)
--- NOTE | 2023-02-27 14:33 | Hospitalist Progress Note ---
Date of Service February 27, 2023 Assessment & Plan (1) Recurrent falls: (2) Elevated troponin: Plan Mechanical fall History of ataxia Elevated high-sensitivity of undetermined significance in setting of mechanical fall Patient is a 73-year-old female with history of ataxia presents to the hospital after mechanical fall. Recently completed course of Bactrim for UTI. Denies chest pain or shortness of breath. Seen by neurology; Dr. Del Castillo in December 20. No clear cause for ataxia; had recommended MRI brain but patient has significant claustrophobia. He recommended restarting Requip 0.5mg twice daily for restless leg syndrome. Imagings done in the ED after presentation CT head reviewedno acute intracranial abnormality CTA chest reviewed; no PE. Cardiomegaly. 1 cm indeterminate sclerotic lesion within right side of the T4 vertebral body. Follow-up nonemergent bone scan recommended. Pelvic x-ray reviewed; no acute fracture or dislocation Abdominal CT reviewed; no significant finding Labs reviewed; no leukocytosis. BMP unremarkable Echocardiogram done; normal biventricular function. Grossly normal valvular structure and function Pain control. Zanaflex added for spasms. PT OT evaluation Obtain MRI brain with and without contrast Chronic conditions: DM 2 insulin requiring, well-controlled as of hemoglobin A1c of 5.6 last December 2021. Hold home metformin. Worsening ambulatory dysfunction secondary to illness, history ataxia as per records possible RLS, unimproved on current ropinirole regimen Right breast cancer status post surgery/radiotherapy, currently in remission anxiety/mood disorder, stable past tobacco abuse Full code DVT prophylaxis Lovenox Discussed with patient's daughter at bedside. Answered queries/questions. Time spent evaluating patient, direct bedside care, chart review, placing orders, interpretation of diagnostic studies, patient as well as other required patient management activities is 60 minutes. Please note the above document was generated using voice recognition software. It may contain grammatical, syntax or spelling errors. Any formal questions or concerns about the content, text or information contained within the body of this dictation should be directly addressed to the provider for clarification Admission and Anticipated Discharge Date Admission Date: February 25, 2023 Subjective Patient seen and examined at bedside. She is comfortable; not in distress. Reports episodes of back spasm. Review of Systems Review of Systems: All systems reviewed & are unremarkable except as noted in Subjective Physical Exam Physical Exam: Constitutional: WD/WN, vitals as above, NAD, sitting up in bed, pleasant, conversing easily Respiratory: normal respiratory effort, lungs clear to auscultation, no wheeze, rales, rhonchi. Normal insp/exp effort, no accessory muscle use Cardiovascular: RRR, no murmur, no edema Vessels: no JVD or carotid bruit Chest: normal inspection of chest Abdomen: normal bowel sounds, soft, nontender, no hepatosplenomegaly Musculoskeletal: no cyanosis or clubbing Skin: no rashes, warm and dry normal turgor Neurologic: Cranial nerves II to XII intact, muscle strength in bilateral upper extremity 4/5, bilateral lower extremity weaker compared to upper extremity; 2/ 5 Psychiatric: A+Ox3, euthymic affect Results & Data Results & Data Vital Signs (Past 12 Hours) Vital Signs Temp Pulse Pulse Resp BP Pulse Ox O2 Del Method 02/27/23 12:00 36.9 C 65 18 124/71 93 Nasal Cannula 02/27/23 08:10 Nasal Cannula 02/27/23 07:58 36.5 C 68 18 110/66 91 Nasal Cannula 02/27/23 07:24 67 02/27/23 03:21 37.0 C 86 16 143/72 H 91 Nasal Cannula O2 Flow Rate 02/27/23 12:00 1 02/27/23 08:10 1 02/27/23 07:58 1 02/27/23 07:24 02/27/23 03:21 1 Laboratory Results Laboratory Results WBC 9.94 K/ul (4.8-10.8) 02/26/23 05:48 RBC 4.68 M/uL (4.20-5.40) 02/26/23 05:48 Hgb 12.3 g/dl (12.0-16.0) 02/26/23 05:48 POC Hgb 13.9 g/dl (12.0-16.0) 02/25/23 19:17 Hct 37.5 % (37.0-47.0) 02/26/23 05:48 POC Hct 41 % (37-47) 02/25/23 19:17 MCV 80.1 fL (80.0-100.0) 02/26/23 05:48 MCH 26.3 pg (25.0-34.0) 02/26/23 05:48 MCHC 32.8 g/dL (32.0-36.0) 02/26/23 05:48 RDW Std Deviation 46.5 fL (36.4-46.3) H 02/26/23 05:48 RDW Coeff of [place] 16.0 % (11.5-14.5) H 02/26/23 05:48 Plt Count 254 K/uL (130-400) 02/26/23 05:48 MPV 9.8 fL (9.4-12.4) 02/26/23 05:48 Immature Gran % (Auto) 0.7 % 02/26/23 05:48 Neut % (Auto) 73.0 % 02/26/23 05:48 Lymph % (Auto) 15.3 % 02/26/23 05:48 [place] % (Auto) 9.4 % 02/26/23 05:48 Eos % (Auto) 1.2 % 02/26/23 05:48 Baso % (Auto) 0.4 % 02/26/23 05:48 Neut # (Auto) 7.26 K/uL (1.40-6.50) H 02/26/23 05:48 Lymph # (Auto) 1.52 K/uL (1.2-3.4) 02/26/23 05:48 [place] # (Auto) 0.93 K/uL (0.11-0.59) H 02/26/23 05:48 Eos # (Auto) 0.12 K/uL (0-0.50) 02/26/23 05:48 Baso # (Auto) 0.04 K/uL (0-0.2) 02/26/23 05:48 Immature Gran # (Auto) 0.07 K/uL (0.01-0.20) 02/26/23 05:48 PT 11.0 Seconds (9.0-12.0) 02/25/23 18:59 INR 1.0 (0.9-1.1) 02/25/23 18:59 APTT 26.5 Seconds (21.0-31.0) 02/25/23 18:59 PTT Ratio 0.9 02/25/23 18:59 VBG pH 7.40 (7.36-7.41) 02/25/23 18:59 VBG pCO2 42 mmHg (38-50) 02/25/23 18:59 VBG pO2 41 mmHg 02/25/23 18:59 VBG HCO3 26 mmol/L 02/25/23 18:59 VBG O2 Saturation 65.5 % 02/25/23 18:59 VBG Base Excess 1.0 mEq/L 02/25/23 18:59 POC Sodium 136 mmol/L (135-144) 02/25/23 19:17 Sodium 137 mmol/L (136-145) 02/26/23 05:48 POC Potassium 4.2 mmol/L (3.3-5.0) 02/25/23 19:17 Potassium 4.2 mmol/L (3.5-5.1) 02/26/23 05:48 POC Chloride 100 mmol/L (101-112) L 02/25/23 19:17 Chloride 105 mmol/L (98-107) 02/26/23 05:48 Carbon Dioxide 24 mmol/L (21-32) 02/26/23 05:48 POC Total CO2 22 mmol/L (24-31) L 02/25/23 19:17 Anion Gap 8 (3-11) 02/26/23 05:48 POC Anion Gap 20.0 mmol/L (16-25) 02/25/23 19:17 POC BUN 10 mg/dl (7-18) 02/25/23 19:17 BUN 13 mg/dl (6-23) 02/26/23 05:48 Creatinine 0.57 mg/dl (0.6-1.2) L 02/26/23 05:48 POC Creatinine 0.6 mg/dl (0.6-1.3) 02/25/23 19:17 Est Cr Clr Drug Dosing 92.8 ml/min 02/26/23 05:48 Est GFR ( Amer) 107.3 ml/min 02/26/23 05:48 Est GFR (Non-Af Amer) 92.6 ml/min 02/26/23 05:48 BUN/Creatinine Ratio 22.8 (10-20) H 02/26/23 05:48 Glucose 99 mg/dl (70-99(Fasting)) 02/26/23 05:48 POC Glucose 111 mg/dl (70-99) H 02/27/23 11:25 POC Glucose (other) 170 mg/dl (70-99) H 02/25/23 19:17 Estimat Average Glucose 126 mg/dl 02/26/23 05:48 Hemoglobin A1c 6.0 % (4.5-5.6) H 02/26/23 05:48 Lactate 1.5 mmol/L (0.4-2.0) 02/25/23 18:59 Calcium 8.7 mg/dl (8.6-10.3) 02/26/23 05:48 POC Ioniz Calcium Cheryl 1.17 mmol/l (1.12-1.32) 02/25/23 19:17 Magnesium 1.9 mg/dl (1.7-2.4) 02/25/23 18:59 Total Bilirubin 0.7 mg/dl (0.2-1.0) 02/25/23 18:59 Direct Bilirubin 0.2 mg/dl (0-0.2) 02/25/23 18:59 AST 41 U/L (13-39) H 02/25/23 18:59 ALT 49 U/L (7-52) 02/25/23 18:59 Alkaline Phosphatase 157 U/L (34-104) H 02/25/23 18:59 Ammonia 23.0 umol/L (18-72) 02/25/23 18:59 Total Creatine Kinase 62 U/L (26-192) 02/25/23 21:41 Troponin I High Sens 35.5 pg/ml (0-14) H D 02/25/23 21:41 Total Protein 7.2 gm/dl (6.0-8.3) 02/25/23 18:59 Albumin 3.8 gm/dl (3.4-5.0) 02/25/23 18:59 Procalcitonin 0.50 ng/ml (0-0.5) 02/25/23 18:59 TSH 3.069 uIu/ml (0.300-4.500) 02/25/23 18:59 Urine Color Yellow 02/25/23 20:25 Urine Appearance Clear (Clear) 02/25/23 20:25 Urine pH 6.0 (4.5-7.5) 02/25/23 20:25 Ur Specific [place] > 1.045 (1.000-1.030) H 02/25/23 20:25 Urine Protein Trace (Negative) H 02/25/23 20:25 Urine Glucose (UA) Negative (Negative) 02/25/23 20:25 Urine Ketones 2+ (Negative) H 02/25/23 20:25 Urine Blood Negative (Negative) 02/25/23 20:25 Urine Nitrite Negative (Negative) 02/25/23 20:25 Urine Bilirubin Negative (Negative) 02/25/23 20:25 Urine Urobilinogen Negative (Negative) 02/25/23 20:25 Ur Leukocyte Esterase Negative (Negative) 02/25/23 20:25 Urine WBC (Auto) 1-5 /hpf (0-5) 02/25/23 20:25 Urine RBC (Auto) 0-4 /hpf (0-4) 02/25/23 20:25 U Hyaline Cast (Auto) 1-5 /lpf (0-5) 02/25/23 20:25 U Epithel Cells (Auto) >30 /lpf (0-5) H 02/25/23 20:25 Urine Bacteria (Auto) Negative (Negative) 02/25/23 20:25 Valproic Acid 34 mcg/ml (50-100) L 02/25/23 21:41 SARS-CoV-2 (PCR) NEGATIVE (Negative) 02/25/23 20:25 Influenza Type A (PCR) Negative (Neg) 02/25/23 20:25 Influenza Type B (PCR) Negative (Neg) 02/25/23 20:25 RSV (RT-PCR) Negative (Neg) 02/25/23 20:25 Impressions Chest X-Ray 02/25/23 18:23 XR chest 1V portable HISTORY: Sepsis COMPARISON: Chest 04/18/2018. FINDINGS: There are low lung volumes. No pneumothorax. There is mild central pulmonary vascular congestion without overt edema. No pleural effusions. No focal lung consolidations to suggest a pneumonia. Prior cholecystectomy. Calcifications within the aortic knob. Elevation of the right hemidiaphragm, unchanged. No acute fractures identified. IMPRESSION: Mild cardiomegaly and mild central pulmonary vascular congestion. ACT 112: Negative or not required by law. Electronically signed by: Phu Almeida M.D. 02/25/2023 8:08 PM Abdomen/Pelvis CT 02/25/23 18:[address] WITH IV CONTRAST CT DOSE: HISTORY: fall TECHNIQUE: Multiaxial CT images of the abdomen and pelvis were performed following the use of intravenous contrast. A dose lowering technique was utilized adhering to the principles of ALARA. COMPARISON STUDY: Abdomen and pelvis CT 05/09/2014. FINDINGS: Mild elevation of the right hemidiaphragm. Bibasilar linear densities consistent with subsegmental atelectasis. No pneumoperitoneum. No pneumatosis. Stable 9 mm sclerotic focus within the left posterior 12th rib. This likely represents a bone island given the long-term stability. No acute fractures identified. Prior cholecystectomy. The liver, pancreas, spleen, adrenal glands, and kidneys are unremarkable. No hydronephrosis. The main portal vein is patent. There is a mildly enlarged portacaval lymph node, unchanged. This is likely benign given the long-term stability. Otherwise, no retroperitoneal or pelvic lymphadenopathy. Moderate calcified plaque within the normal caliber abdominal aorta. No pelvic free fluid. The bladder is decompressed. A 2 cm calcified uterine fibroid is noted. The ovaries are unremarkable. Colonic diverticulosis. No evidence for acute diverticulitis. No bowel wall thickening or obstruction. IMPRESSION: 1. No acute traumatic process within the abdomen or pelvis. 2. No bowel wall thickening or obstruction. 3. Prior cholecystectomy. 4. Additional findings as described above. ACT 112: Negative or not required by law. Electronically signed by: Phu Almeida M.D. 02/25/2023 8:[address] 02/25/23 18:[address] DOSE: HISTORY: fall TECHNIQUE: Multiaxial CT images of the cervical spine were performed and reformatted in the sagittal and coronal plane without the use of contrast. A dose lowering technique was utilized adhering to the principles of ALARA. COMPARISON: None. FINDINGS: No fractures. No subluxation. Prevertebral soft tissues and the C1-C2 interval are intact. No pneumothorax. There is a coarse calcification within the left thyroid lobe and a 9 mm hypodense nodule. This does not meet CT criteria for follow-up. IMPRESSION: No fractures within the cervical spine. ACT 112: Negative or not required by law. Electronically signed by: Phu Almeida M.D. 02/25/2023 7:48 PM Chest CTA 02/25/23 18:24 CHEST CTA for PULMONARY ARTERIES CT DOSE: 3638.75 mGy.cm HISTORY: fall hypoxia immobile ro pe TECHNIQUE: Multiaxial CT images of the chest were performed following the intravenous administration of contrast to evaluate the pulmonary arteries. Maximal intensity projection images were also obtained. A dose lowering technique was utilized adhering to the principles of ALARA. COMPARISON STUDY: None. FINDINGS: There is a 1 cm sclerotic lesion within the right side of the T4 vertebral body. No acute fractures within the chest. The central airways are patent. No pneumothorax. No pleural effusions. There are low lung volumes with mild elevation the right hemidiaphragm. Bibasilar linear densities favor subsegmental atelectasis. Otherwise, no focal lung consolidations to suggest a pneumonia. No evidence for pulmonary edema. A 9 mm left thyroid nodules again noted. Normal esophagus. No mediastinal or hilar lymphadenopathy. The heart is mildly enlarged. No pericardial effusion. Calcified plaque within the normal caliber thoracic aorta. No evidence for an aortic dissection. There are moderate to severe coronary artery calcifications noted. No filling defects within the pulmonary arteries to suggest a pulmonary embolus. IMPRESSION: 1. No evidence for a pulmonary embolus. 2. Cardiomegaly. 3. Bibasilar linear densities favor subsegmental atelectasis. Otherwise, no focal lung consolidations to suggest a pneumonia. 4. No acute traumatic process within the chest. 5. A 1 cm indeterminate sclerotic lesion within the right side of the T4 vertebral body. Follow-up nonemergent bone scan recommended to exclude a metabolically active lesion. ACT 112: Positive. There are findings on this exam that require communication between the performing entity and the patient following Patient Test Result Information Act ([place] Act 112) guidelines. Electronically signed by: Phu Almeida M.D. 02/25/2023 7:[address] 02/25/23 18:[address] DOSE: HISTORY: Head injury. fall TECHNIQUE: Multiaxial CT images of the head were performed without the use of intravenous contrast. Automated exposure control was utilized for this study. A dose lowering technique was utilized adhering to the principles of ALARA. Comparison: Head CT 04/19/2018. Findings: The paranasal sinuses and mastoid air cells are clear. The calvarium and skull base are intact. There is no mass, hematoma, midline shift, acute infarct. White matter hypodensity is nonspecific but suggestive of microvascular ischemic change. The ventricles and sulci demonstrate mild age-related involutional changes. Motion artifact. Impression: Motion artifact. No definite acute intracranial abnormality. ACT 112: Negative or not required by law. Electronically signed by: Phu Almeida M.D. 02/25/2023 7:45 PM Pelvis X-Ray 02/25/23 18:25 XR pelvis 1-2V routine CLINICAL HISTORY: fall. Pelvic pain. COMPARISON STUDY: None. FINDINGS: No fracture or dislocation within the pelvis or hips. The sacrum is intact. Soft tissues are unremarkable. There is contrast within the urinary system from the recent CT examination. IMPRESSION: No fracture or dislocation within the pelvis or hips. ACT 112: Negative or not required by law. Electronically signed by: Phu Almeida M.D. 02/25/2023 8:09 PM
[2023-02-27] MEDS: ATORVASTATIN 40 MG TAB PO SCH (20:18)
[2023-02-27] MEDS: LATANOPROST 0.005% OP SOLN 2.5 ML BTL OP SCH (20:20)
[2023-02-27] MEDS: rOPINIRole HCL 1 MG TABLET PO SCH (20:20)
[2023-02-28 07:57] LABS: Basophils # (auto) 0.06 K/uL (0-0.2); Basophils % (auto) 1.1 %; Eosinophils # (auto) 0.33 K/uL (0-0.50); Eosinophils % (auto) 5.9 %; Hematocrit (blood only) 36.3 % (37.0-47.0); Hemoglobin 11.6 g/dl (12.0-16.0); Immature Granulocytes # (auto) 0.12 K/uL (0.01-0.20); Immature Granulocytes % (auto) 2.1 %; Lymphocytes # (auto) 1.75 K/uL (1.2-3.4); Lymphocytes % (auto) 31.2 %; Mean Corpuscular Hemoglobin 26.1 pg (25.0-34.0); Mean Corpuscular Volume 81.8 fL (80.0-100.0); Mean Platelet Volume 9.4 fL (9.4-12.4); Monocytes % (auto) 8.9 %; Neutrophils # (auto) 2.85 K/uL (1.40-6.50); Neutrophils % (auto) 50.8 %; Platelet Count 280 K/uL (130-400); RDW Coefficient of Variation 15.8 % (11.5-14.5); RDW Standard Deviation 46.8 fL (36.4-46.3); Red Blood Count 4.44 M/uL (4.20-5.40); White Blood Count 5.61 K/ul (4.8-10.8)
[2023-02-28 08:08] LABS: BUN Creatinine Ratio 14.5 (10-20); Calcium 8.7 mg/dl (8.6-10.3); Creatinine Clr Calc Pharmacy 104.8 ml/min; Est GFR (African American) 108.6 ml/min; Est GFR (Non-African American) 93.7 ml/min; Potassium 3.6 mmol/L (3.5-5.1)
[2023-02-28] MEDS: INSULIN ASPART PER UNIT CHARGE SC SCH ×4 (08:49→20:53)
[2023-02-28] MEDS: LANTUS PER UNIT CHARGE SQ SCH (08:50)
[2023-02-28] MEDS: oxyCODONE HCL IR 5 MG TAB (IMMEDIATE RELEASE) PO PRN ×3 (09:00→23:00)
[2023-02-28] MEDS ORDERED: ALPRAZolam 0.5 MG TABLET PO SCH (09:30)
[2023-02-28] MEDS: FLUTICASONE PROPIONATE NA SPR 16 GM BTL SCH (09:31)
[2023-02-28] MEDS: UMECLIDINIUM/VILANTEROL 62.5/25MCG 7 PUFFS/INHALER INH SCH (09:31)
[2023-02-28] MEDS: FLUTICASONE FUROATE 100MCG 14 PUFFS/INHALER INH SCH (09:31)
[2023-02-28] MEDS: ADVANCED PROBIOTIC 1250 MG CAPSULE PO SCH ×2 (09:32→20:00)
[2023-02-28] MEDS: DIVALPROEX DELAY RELEASE 500 MG TAB PO SCH ×2 (09:32→19:59)
[2023-02-28] MEDS: MULTIVITAMIN TAB PO SCH (09:32)
[2023-02-28] MEDS: PANTOprazole 40 MG TAB PO SCH ×2 (09:32→20:00)
[2023-02-28] MEDS: ASPIRIN 81 MG ECTAB PO SCH (09:32)
[2023-02-28] MEDS: CYANOCOBALAMIN (B-12) 100 MCG TABLET PO SCH (09:33)
[2023-02-28] MEDS: ENOXAPARIN INJ 40 MG/0.4 ML SYR SQ SCH (09:33)
[2023-02-28] MEDS: CETIRIZINE HCL 10 MG TABLET PO SCH (09:33)
[2023-02-28] MEDS: tiZANidine HCL 4 MG TABLET PO PRN ×2 (09:33→18:18)
--- NOTE | 2023-02-28 14:36 | Hospitalist Progress Note ---
Date of Service February 28, 2023 Assessment & Plan (1) Recurrent falls: (2) Elevated troponin: Plan Mechanical fall History of ataxia Elevated high-sensitivity of undetermined significance in setting of mechanical fall Patient is a 73-year-old female with history of ataxia presents to the hospital after mechanical fall. Recently completed course of Bactrim for UTI. Denies chest pain or shortness of breath. Seen by neurology; Dr. Del Castillo in December 20. No clear cause for ataxia; had recommended MRI brain but patient has significant claustrophobia. He recommended restarting Requip 0.5mg twice daily for restless leg syndrome. Imagings done in the ED after presentation CT head reviewedno acute intracranial abnormality CTA chest reviewed; no PE. Cardiomegaly. 1 cm indeterminate sclerotic lesion within right side of the T4 vertebral body. Follow-up nonemergent bone scan recommended. Pelvic x-ray reviewed; no acute fracture or dislocation Abdominal CT reviewed; no significant finding Labs reviewed; no leukocytosis. BMP unremarkable Echocardiogram done; normal biventricular function. Grossly normal valvular structure and function Pain control. Zanaflex added for spasms. PT OT evaluation Obtain MRI brain with and without contrast. Patient to be premedicated with Xanax prior to MRI brain. Patient reports b/l knee. obtain xray of both knees. Chronic conditions: DM 2 insulin requiring, well-controlled as of hemoglobin A1c of 5.6 last December 2021. Hold home metformin. Worsening ambulatory dysfunction secondary to illness, history ataxia as per records possible RLS, unimproved on current ropinirole regimen Right breast cancer status post surgery/radiotherapy, currently in remission anxiety/mood disorder, stable past tobacco abuse Full code DVT prophylaxis Lovenox Please note the above document was generated using voice recognition software. It may contain grammatical, syntax or spelling errors. Any formal questions or concerns about the content, text or information contained within the body of this dictation should be directly addressed to the provider for clarification Admission and Anticipated Discharge Date Admission Date: February 25, 2023 Subjective Patient seen and examined at bedside. She reports pain in her left knee. Review of Systems Review of Systems: All systems reviewed & are unremarkable except as noted in Subjective Physical Exam Physical Exam: Constitutional: WD/WN, vitals as above, NAD, sitting up in bed, pleasant, conversing easily Respiratory: normal respiratory effort, lungs clear to auscultation, no wheeze, rales, rhonchi. Normal insp/exp effort, no accessory muscle use Cardiovascular: RRR, no murmur, no edema Vessels: no JVD or carotid bruit Chest: normal inspection of chest Abdomen: normal bowel sounds, soft, nontender, no hepatosplenomegaly Musculoskeletal: no cyanosis or clubbing. Tenderness on palpation of left knee. Skin: no rashes, warm and dry normal turgor Neurologic: Cranial nerves II to XII intact, muscle strength in bilateral upper extremity 4/5, bilateral lower extremity weaker compared to upper extremity; 2/ 5 Psychiatric: A+Ox3, euthymic affect Results & Data Results & Data Vital Signs (Past 12 Hours) Vital Signs Temp Pulse Resp BP Pulse Ox O2 Del Method O2 Flow Rate 02/28/23 11:56 36.8 C 69 18 113/71 95 Nasal Cannula 2 02/28/23 11:24 Nasal Cannula 1 02/28/23 08:00 36.2 C L 77 20 126/65 93 Nasal Cannula 1 02/28/23 04:00 36.5 C 75 18 139/81 92 Nasal Cannula 1 Laboratory Results Laboratory Results WBC 5.61 K/ul (4.8-10.8) 02/28/23 07:03 RBC 4.44 M/uL (4.20-5.40) 02/28/23 07:03 Hgb 11.6 g/dl (12.0-16.0) L 02/28/23 07:03 POC Hgb 13.9 g/dl (12.0-16.0) 02/25/23 19:17 Hct 36.3 % (37.0-47.0) L 02/28/23 07:03 POC Hct 41 % (37-47) 02/25/23 19:17 MCV 81.8 fL (80.0-100.0) 02/28/23 07:03 MCH 26.1 pg (25.0-34.0) 02/28/23 07:03 MCHC 32.0 g/dL (32.0-36.0) 02/28/23 07:03 RDW Std Deviation 46.8 fL (36.4-46.3) H 02/28/23 07:03 RDW Coeff of [place] 15.8 % (11.5-14.5) H 02/28/23 07:03 Plt Count 280 K/uL (130-400) 02/28/23 07:03 MPV 9.4 fL (9.4-12.4) 02/28/23 07:03 Immature Gran % (Auto) 2.1 % 02/28/23 07:03 Neut % (Auto) 50.8 % 02/28/23 07:03 Lymph % (Auto) 31.2 % 02/28/23 07:03 [place] % (Auto) 8.9 % 02/28/23 07:03 Eos % (Auto) 5.9 % 02/28/23 07:03 Baso % (Auto) 1.1 % 02/28/23 07:03 Neut # (Auto) 2.85 K/uL (1.40-6.50) 02/28/23 07:03 Lymph # (Auto) 1.75 K/uL (1.2-3.4) 02/28/23 07:03 [place] # (Auto) 0.50 K/uL (0.11-0.59) 02/28/23 07:03 Eos # (Auto) 0.33 K/uL (0-0.50) 02/28/23 07:03 Baso # (Auto) 0.06 K/uL (0-0.2) 02/28/23 07:03 Immature Gran # (Auto) 0.12 K/uL (0.01-0.20) 02/28/23 07:03 PT 11.0 Seconds (9.0-12.0) 02/25/23 18:59 INR 1.0 (0.9-1.1) 02/25/23 18:59 APTT 26.5 Seconds (21.0-31.0) 02/25/23 18:59 PTT Ratio 0.9 02/25/23 18:59 VBG pH 7.40 (7.36-7.41) 02/25/23 18:59 VBG pCO2 42 mmHg (38-50) 02/25/23 18:59 VBG pO2 41 mmHg 02/25/23 18:59 VBG HCO3 26 mmol/L 02/25/23 18:59 VBG O2 Saturation 65.5 % 02/25/23 18:59 VBG Base Excess 1.0 mEq/L 02/25/23 18:59 POC Sodium 136 mmol/L (135-144) 02/25/23 19:17 Sodium 140 mmol/L (136-145) 02/28/23 07:03 POC Potassium 4.2 mmol/L (3.3-5.0) 02/25/23 19:17 Potassium 3.6 mmol/L (3.5-5.1) 02/28/23 07:03 POC Chloride 100 mmol/L (101-112) L 02/25/23 19:17 Chloride 105 mmol/L (98-107) 02/28/23 07:03 Carbon Dioxide 27 mmol/L (21-32) 02/28/23 07:03 POC Total CO2 22 mmol/L (24-31) L 02/25/23 19:17 Anion Gap 8 (3-11) 02/28/23 07:03 POC Anion Gap 20.0 mmol/L (16-25) 02/25/23 19:17 POC BUN 10 mg/dl (7-18) 02/25/23 19:17 BUN 8 mg/dl (6-23) 02/28/23 07:03 Creatinine 0.55 mg/dl (0.6-1.2) L 02/28/23 07:03 POC Creatinine 0.6 mg/dl (0.6-1.3) 02/25/23 19:17 Est Cr Clr Drug Dosing 104.8 ml/min 02/28/23 07:03 Est GFR ( Amer) 108.6 ml/min 02/28/23 07:03 Est GFR (Non-Af Amer) 93.7 ml/min 02/28/23 07:03 BUN/Creatinine Ratio 14.5 (10-20) 02/28/23 07:03 Glucose 92 mg/dl (70-99(Fasting)) 02/28/23 07:03 POC Glucose 124 mg/dl (70-99) H 02/28/23 11:58 POC Glucose (other) 170 mg/dl (70-99) H 02/25/23 19:17 Estimat Average Glucose 126 mg/dl 02/26/23 05:48 Hemoglobin A1c 6.0 % (4.5-5.6) H 02/26/23 05:48 Lactate 1.5 mmol/L (0.4-2.0) 02/25/23 18:59 Calcium 8.7 mg/dl (8.6-10.3) 02/28/23 07:03 POC Ioniz Calcium Cheryl 1.17 mmol/l (1.12-1.32) 02/25/23 19:17 Magnesium 1.9 mg/dl (1.7-2.4) 02/25/23 18:59 Total Bilirubin 0.7 mg/dl (0.2-1.0) 02/25/23 18:59 Direct Bilirubin 0.2 mg/dl (0-0.2) 02/25/23 18:59 AST 41 U/L (13-39) H 02/25/23 18:59 ALT 49 U/L (7-52) 02/25/23 18:59 Alkaline Phosphatase 157 U/L (34-104) H 02/25/23 18:59 Ammonia 23.0 umol/L (18-72) 02/25/23 18:59 Total Creatine Kinase 62 U/L (26-192) 02/25/23 21:41 Troponin I High Sens 35.5 pg/ml (0-14) H D 02/25/23 21:41 Total Protein 7.2 gm/dl (6.0-8.3) 02/25/23 18:59 Albumin 3.8 gm/dl (3.4-5.0) 02/25/23 18:59 Procalcitonin 0.50 ng/ml (0-0.5) 02/25/23 18:59 TSH 3.069 uIu/ml (0.300-4.500) 02/25/23 18:59 Urine Color Yellow 02/25/23 20:25 Urine Appearance Clear (Clear) 02/25/23 20:25 Urine pH 6.0 (4.5-7.5) 02/25/23 20:25 Ur Specific [place] > 1.045 (1.000-1.030) H 02/25/23 20:25 Urine Protein Trace (Negative) H 02/25/23 20:25 Urine Glucose (UA) Negative (Negative) 02/25/23 20:25 Urine Ketones 2+ (Negative) H 02/25/23 20:25 Urine Blood Negative (Negative) 02/25/23 20:25 Urine Nitrite Negative (Negative) 02/25/23 20:25 Urine Bilirubin Negative (Negative) 02/25/23 20:25 Urine Urobilinogen Negative (Negative) 02/25/23 20:25 Ur Leukocyte Esterase Negative (Negative) 02/25/23 20:25 Urine WBC (Auto) 1-5 /hpf (0-5) 02/25/23 20:25 Urine RBC (Auto) 0-4 /hpf (0-4) 02/25/23 20:25 U Hyaline Cast (Auto) 1-5 /lpf (0-5) 02/25/23 20:25 U Epithel Cells (Auto) >30 /lpf (0-5) H 02/25/23 20:25 Urine Bacteria (Auto) Negative (Negative) 02/25/23 20:25 Valproic Acid 34 mcg/ml (50-100) L 02/25/23 21:41 SARS-CoV-2 (PCR) NEGATIVE (Negative) 02/25/23 20:25 Influenza Type A (PCR) Negative (Neg) 02/25/23 20:25 Influenza Type B (PCR) Negative (Neg) 02/25/23 20:25 RSV (RT-PCR) Negative (Neg) 02/25/23 20:25 Impressions Chest X-Ray 02/25/23 18:23 XR chest 1V portable HISTORY: Sepsis COMPARISON: Chest 04/18/2018. FINDINGS: There are low lung volumes. No pneumothorax. There is mild central pulmonary vascular congestion without overt edema. No pleural effusions. No focal lung consolidations to suggest a pneumonia. Prior cholecystectomy. Calcifications within the aortic knob. Elevation of the right hemidiaphragm, unchanged. No acute fractures identified. IMPRESSION: Mild cardiomegaly and mild central pulmonary vascular congestion. ACT 112: Negative or not required by law. Electronically signed by: Phu Almeida M.D. 02/25/2023 8:08 PM Abdomen/Pelvis CT 02/25/23 18:[address] WITH IV CONTRAST CT DOSE: HISTORY: fall TECHNIQUE: Multiaxial CT images of the abdomen and pelvis were performed following the use of intravenous contrast. A dose lowering technique was utilized adhering to the principles of ALARA. COMPARISON STUDY: Abdomen and pelvis CT 05/09/2014. FINDINGS: Mild elevation of the right hemidiaphragm. Bibasilar linear densities consistent with subsegmental atelectasis. No pneumoperitoneum. No pneumatosis. Stable 9 mm sclerotic focus within the left posterior 12th rib. This likely represents a bone island given the long-term stability. No acute fractures identified. Prior cholecystectomy. The liver, pancreas, spleen, adrenal glands, and kidneys are unremarkable. No hydronephrosis. The main portal vein is patent. There is a mildly enlarged portacaval lymph node, unchanged. This is likely benign given the long-term stability. Otherwise, no retroperitoneal or pelvic lymphadenopathy. Moderate calcified plaque within the normal caliber abdominal aorta. No pelvic free fluid. The bladder is decompressed. A 2 cm calcified uterine fibroid is noted. The ovaries are unremarkable. Colonic diverticulosis. No evidence for acute diverticulitis. No bowel wall thickening or obstruction. IMPRESSION: 1. No acute traumatic process within the abdomen or pelvis. 2. No bowel wall thickening or obstruction. 3. Prior cholecystectomy. 4. Additional findings as described above. ACT 112: Negative or not required by law. Electronically signed by: Phu Almeida M.D. 02/25/2023 8:[address] 02/25/23 18:[address] DOSE: HISTORY: fall TECHNIQUE: Multiaxial CT images of the cervical spine were performed and reformatted in the sagittal and coronal plane without the use of contrast. A dose lowering technique was utilized adhering to the principles of ALARA. COMPARISON: None. FINDINGS: No fractures. No subluxation. Prevertebral soft tissues and the C1-C2 interval are intact. No pneumothorax. There is a coarse calcification within the left thyroid lobe and a 9 mm hypodense nodule. This does not meet CT criteria for follow-up. IMPRESSION: No fractures within the cervical spine. ACT 112: Negative or not required by law. Electronically signed by: Phu Almeida M.D. 02/25/2023 7:48 PM Chest CTA 02/25/23 18:24 CHEST CTA for PULMONARY ARTERIES CT DOSE: 3638.75 mGy.cm HISTORY: fall hypoxia immobile ro pe TECHNIQUE: Multiaxial CT images of the chest were performed following the intravenous administration of contrast to evaluate the pulmonary arteries. Maximal intensity projection images were also obtained. A dose lowering technique was utilized adhering to the principles of ALARA. COMPARISON STUDY: None. FINDINGS: There is a 1 cm sclerotic lesion within the right side of the T4 vertebral body. No acute fractures within the chest. The central airways are patent. No pneumothorax. No pleural effusions. There are low lung volumes with mild elevation the right hemidiaphragm. Bibasilar linear densities favor subsegmental atelectasis. Otherwise, no focal lung consolidations to suggest a pneumonia. No evidence for pulmonary edema. A 9 mm left thyroid nodules again noted. Normal esophagus. No mediastinal or hilar lymphadenopathy. The heart is mildly enlarged. No pericardial effusion. Calcified plaque within the normal caliber thoracic aorta. No evidence for an aortic dissection. There are moderate to severe coronary artery calcifications noted. No filling defects within the pulmonary arteries to suggest a pulmonary embolus. IMPRESSION: 1. No evidence for a pulmonary embolus. 2. Cardiomegaly. 3. Bibasilar linear densities favor subsegmental atelectasis. Otherwise, no focal lung consolidations to suggest a pneumonia. 4. No acute traumatic process within the chest. 5. A 1 cm indeterminate sclerotic lesion within the right side of the T4 vertebral body. Follow-up nonemergent bone scan recommended to exclude a metabolically active lesion. ACT 112: Positive. There are findings on this exam that require communication between the performing entity and the patient following Patient Test Result Information Act ([place] Act 112) guidelines. Electronically signed by: Phu Almeida M.D. 02/25/2023 7:[address] 02/25/23 18:[address] DOSE: HISTORY: Head injury. fall TECHNIQUE: Multiaxial CT images of the head were performed without the use of intravenous contrast. Automated exposure control was utilized for this study. A dose lowering technique was utilized adhering to the principles of ALARA. Comparison: Head CT 04/19/2018. Findings: The paranasal sinuses and mastoid air cells are clear. The calvarium and skull base are intact. There is no mass, hematoma, midline shift, acute infarct. White matter hypodensity is nonspecific but suggestive of microvascular ischemic change. The ventricles and sulci demonstrate mild age-related involutional changes. Motion artifact. Impression: Motion artifact. No definite acute intracranial abnormality. ACT 112: Negative or not required by law. Electronically signed by: Phu Almeida M.D. 02/25/2023 7:45 PM Pelvis X-Ray 02/25/23 18:25 XR pelvis 1-2V routine CLINICAL HISTORY: fall. Pelvic pain. COMPARISON STUDY: None. FINDINGS: No fracture or dislocation within the pelvis or hips. The sacrum is intact. Soft tissues are unremarkable. There is contrast within the urinary system from the recent CT examination. IMPRESSION: No fracture or dislocation within the pelvis or hips. ACT 112: Negative or not required by law. Electronically signed by: Phu Almeida M.D. 02/25/2023 8:09 PM
--- NOTE | 2023-02-28 16:12 | XRay Report ---
RIGHT KNEE 2 VIEWS CLINICAL HISTORY: Right knee pain. FINDINGS: AP and crosstable lateral views of the right knee are obtained. No prior studies are availa ble for comparison at the time of dictation. The skeletal structures are osteopenic. No fracture is s een. There is mild tricompartmental degenerative joint space narrowing. There are tiny marginal osteo phytes and patellar enthesophytes. No joint effusion is identified. The overlying soft tissues are wi thin normal limits. There is atherosclerotic calcification of the popliteal artery. IMPRESSION: Osteopenia and mild degenerative change as above with no acute bony abnormality identifie d. Electronically signed by: Chriss Shirley M.D. 02/28/2023 4:11 PM
--- NOTE | 2023-02-28 16:26 | XRay Report ---
XR knee LT 3V CLINICAL HISTORY: Rule out fracture. Fall. Left knee pain. COMPARISON STUDY: None. FINDINGS: No acute fracture or dislocation within the left knee. The bones are slightly osteopenic. T here is No significant knee effusion. Mild to moderate tricompartmental osteoarthritis most pronounced within the medial compartment of the knee. There are mild vascular calcifications present. IMPRESSION: 1. No acute fracture or dislocation within the left knee. 2. Mild to moderate osteoarthritis. ACT 112: Negative or not required by law. Electronically signed by: Phu Almeida M.D. 02/28/2023 4:25 PM
[2023-02-28] MEDS: NYSTATIN POWDER 15GM BTL EXT PRN (16:54)
[2023-02-28] MEDS ORDERED: ALPRAZolam 0.5 MG TABLET PO STA (19:29)
[2023-02-28] MEDS: ATORVASTATIN 40 MG TAB PO SCH (19:59)
[2023-02-28] MEDS: LATANOPROST 0.005% OP SOLN 2.5 ML BTL OP SCH (19:59)
[2023-02-28] MEDS: rOPINIRole HCL 1 MG TABLET PO SCH (19:59)
[2023-02-28] MEDS: ACETAMINOPHEN 325 MG TAB PO PRN (20:03)
[2023-02-28] MEDS ORDERED: KETOROLAC TROMETHAMINE 15 MG/ML VIAL IV ONE (20:58)
[2023-02-28] MEDS ORDERED: GADOBUTROL 65ML VIAL IV ONE (23:59)
--- NOTE | 2023-03-01 00:36 | Magnetic Resonance Report ---
Exam(s): MRI HEAD W/WO Contrast IV Amt: 11cc gadavist EXAM: MR Head Without and With Intravenous Contrast CLINICAL HISTORY: Reason for exam: Ataxia. TECHNIQUE: Magnetic resonance images of the head/brain without and with intravenous contrast in multiple planes. CONTRAST: Patient received 11cc gadavist of IV contrast COMPARISON: Noncontrast CT dated 02/25/23 is reviewed. FINDINGS: Brain: Abnormal T2 signal in the deep cerebral white matter is consistent with small vessel ischemic/degenerative changes. The cerebral and cerebellar sulci are prominent consistent with brain atrophy. No hemorrhage. Ventricles: Unremarkable. No ventriculomegaly. Bones/joints: Unremarkable. Sinuses: Unremarkable as visualized. No acute sinusitis. Mastoid air cells: Unremarkable as visualized. No mastoid effusion. Orbits: Unremarkable as visualized. IMPRESSION: 1. Small vessel ischemic/degenerative changes. 2. Cerebral and cerebellar atrophy. Electronically signed by: Mike Mcgregor MD 03/01/23 00:35 AM
[2023-03-01] MEDS: MULTIVITAMIN TAB PO SCH (08:11)
[2023-03-01] MEDS: ADVANCED PROBIOTIC 1250 MG CAPSULE PO SCH ×2 (08:11→20:46)
[2023-03-01] MEDS: PANTOprazole 40 MG TAB PO SCH ×2 (08:11→20:46)
[2023-03-01] MEDS: DIVALPROEX DELAY RELEASE 500 MG TAB PO SCH ×2 (08:11→20:46)
[2023-03-01] MEDS: CYANOCOBALAMIN (B-12) 100 MCG TABLET PO SCH (08:11)
[2023-03-01] MEDS: ASPIRIN 81 MG ECTAB PO SCH (08:11)
[2023-03-01] MEDS: CETIRIZINE HCL 10 MG TABLET PO SCH (08:12)
[2023-03-01] MEDS: FLUTICASONE PROPIONATE NA SPR 16 GM BTL SCH (08:12)
[2023-03-01] MEDS: FLUTICASONE FUROATE 100MCG 14 PUFFS/INHALER INH SCH (08:13)
[2023-03-01] MEDS: ENOXAPARIN INJ 40 MG/0.4 ML SYR SQ SCH (08:13)
[2023-03-01] MEDS: UMECLIDINIUM/VILANTEROL 62.5/25MCG 7 PUFFS/INHALER INH SCH (08:14)
[2023-03-01] MEDS: LANTUS PER UNIT CHARGE SQ SCH (08:20)
[2023-03-01] MEDS: INSULIN ASPART PER UNIT CHARGE SC SCH ×4 (08:21→21:18)
[2023-03-01] MEDS: oxyCODONE HCL IR 5 MG TAB (IMMEDIATE RELEASE) PO PRN (08:46)
[2023-03-01] MEDS: ACETAMINOPHEN 325 MG TAB PO PRN (12:40)
[2023-03-01] MEDS: IBUPROFEN 800 MG TAB PO SCH ×2 (17:08→20:44)
--- NOTE | 2023-03-01 19:43 | Hospitalist Progress Note ---
Date of Service March 01, 2023 Assessment & Plan (1) Recurrent falls: (2) Bilateral knee pain: (3) Ataxia: (4) Morbid obesity: (5) History of right breast cancer: (6) Diabetes mellitus, type 2: Plan Mechanical fall History of ataxia Patient is a 73-year-old female with history of ataxia presents to the hospital after mechanical fall. Recently completed course of Bactrim for UTI. Denies chest pain or shortness of breath. Seen by neurology; Dr. Del Castillo in December 20. No clear cause for ataxia; had recommended MRI brain but patient has significant claustrophobia. He recommended restarting Requip 0.5mg twice daily for restless leg syndrome. She takes Requip at night but does not believe she has restless leg syndrome at this time. Holding off on additional Requip. MRI overnight revealed small vessel ischemic/degenerative changes with cerebral and cerebellar atrophy. Results were explained to the patient Zanaflex added for spasms. PT OT recs SNF Knee xrays reveal no evidence of fracture bilaterally. Abnormal CT chest CTA chest reviewed; no PE. Cardiomegaly. 1 cm indeterminate sclerotic lesion within right side of the T4 vertebral body. Follow-up nonemergent bone scan recommended. Chronic conditions: DM 2 insulin requiring, well-controlled as of hemoglobin A1c of 5.6 last December 2021. Hold home metformin. Worsening ambulatory dysfunction secondary to illness, history ataxia as per records possible RLS, unimproved on current ropinirole regimen Right breast cancer status post surgery/radiotherapy, currently in remission anxiety/mood disorder, stable past tobacco abuse Full code DVT prophylaxis Lovenox Dispo-to SNF [facility] Hospitalist Admission and Anticipated Discharge Date Admission Date: February 25, 2023 Subjective 73-year-old female with an 18-month history of ataxia of uncertain etiology presents for bilateral knee pain and mobility issues after a fall at home. Patient reports her pain in her knees is progressed and she requires stronger pain medication We decided upon ibuprofen scheduled for now She continues with ice to both her knees She is working with physical therapy but reports needing to move more often during the day to prevent joint stiffness. We discussed rehab and she is open to this. PT and OT recommend SNF. No other sensation issues or tingling issues noted today. These have resolved since admission. Review of Systems Review of Systems: All systems reviewed negative except as indicated above. Physical Exam Physical Exam: CONSTITUTIONAL: morbid obesity, vitals as above, generally well-appearing, NAD EYES: normal conjunctivae, no scleral icterus ENT: external ear and nose normal, MMM NECK: trachea midline RESPIRATORY: clear to auscultation bilaterally, no crackles, rales or wheezes, normal respiratory effort CARDIOVASCULAR: regular rate and rhythm, S1 and 2 heard without murmurs, young ps or rubs, no JVD, no peripheral edema CHEST: inspection of chest was normal GASTROINTESTINAL: soft, protubernt, nontender, ND, no guarding MUSCULOSKELETAL: Limited range of motion in the lower extremity specific knee with flexion extension of the knees bilaterally. The patient is obese which makes physical exam and movements somewhat difficult. She is also an uncontrolled pain. Dorsiflexion plantarflexion intact bilaterally. Head is normocephalic and atraumatic, neck supple SKIN: warm and dry NEUROLOGIC: CN 2-12 grossly intact, no sensory deficit, normal cognition, normal speech, no tremor PSYCHIATRIC: alert cooperative and oriented to person, place and time. Euthymic mood, makes good eye contact, language grossly intact, recent and remote memory grossly intact. Results & Data Results & Data Vital Signs (Past 12 Hours) Vital Signs Temp Pulse Pulse Resp BP Pulse Ox O2 Del Method 03/01/23 15:38 36.6 C 66 18 158/75 H 93 Room Air 03/01/23 15:37 60 03/01/23 12:19 36.5 C 76 18 139/76 95 Room Air 03/01/23 08:06 Room Air 03/01/23 08:38 36.9 C 59 L 18 145/73 H 93 Room Air Medications Administered Current Inpatient Medications Acetaminophen (Acetaminophen 325 Mg Tab) 325 mg PO Q6H PRN PRN Reason: Pain Stop: 03/28/23 00:36 Last Admin: 03/01/23 12:40 Dose: 325 mg Aspirin (Aspirin 81 Mg Ectab) 81 mg PO DAILY [facility] Stop: 03/28/23 08:59 Last Admin: 03/01/23 08:11 Dose: 81 mg Atorvastatin Calcium (Atorvastatin 40 Mg Tab) 40 mg PO HS [facility] Stop: 03/28/23 20:59 Last Admin: 02/28/23 19:59 Dose: 40 mg Cetirizine HCl (Cetirizine Hcl 10 Mg Tablet) 10 mg PO QAM [facility] Stop: 03/28/23 08:59 Last Admin: 03/01/23 08:12 Dose: 10 mg Cyanocobalamin (Cyanocobalamin (B-12) 100 Mcg Tablet) 100 mcg PO DAILY [facility] Stop: 03/28/23 08:59 Last Admin: 03/01/23 08:11 Dose: 100 mcg Dextrose (Dextrose 50% 50 Ml Syringe) 25 - 50 ml IV UD PRN; Protocol PRN Reason: Hypoglycemia Protocol Stop: 03/28/23 00:36 Divalproex Sodium (Divalproex Delay Release 500 Mg Tab) 500 mg PO BID [facility] Stop: 03/28/23 00:36 Last Admin: 03/01/23 08:11 Dose: 500 mg Enoxaparin Sodium (Enoxaparin Inj 40 Mg/0.4 Ml Syr) [address] [facility] Stop: 03/28/23 08:59 Last Admin: 03/01/23 08:13 Dose: 40 mg Fluticasone Furoate (Fluticasone Furoate 100mcg 14 Puffs/Inhaler) [address] [facility] Stop: 03/28/23 08:59 Last Admin: 03/01/23 08:13 Dose: 1 puffs Fluticasone Propionate (Fluticasone Propionate Na Spr 16 Gm Btl) [address] [facility] Stop: 03/28/23 08:59 Last Admin: 03/01/23 08:12 Dose: 1 sprays Glucagon (Glucagon For Inj 1 Mg Vial) 1 mg SQ UD PRN; Protocol PRN Reason: Hypoglycemia Protocol Stop: 03/28/23 00:36 Glucose (Glucose 10 Tab/Tube) 4 - 8 tab PO UD PRN; Protocol PRN Reason: Hypoglycemia Treatment Stop: 03/28/23 00:36 Glucose (Glucose 40% Gel 15 Gm Tube) 15 - 30 gm PO UD PRN; Protocol PRN Reason: Hypoglycemia Protocol Stop: 03/28/23 00:36 Promethazine HCl 12.5 mg/ (Sodium Chloride) 50.5 mls @ 202 mls/hr IV Q6H PRN PRN Reason: Nausea And Vomiting Stop: 03/27/23 23:07 Ibuprofen (Ibuprofen 800 Mg Tab) 800 mg PO Q8 [facility] Stop: 03/31/23 16:14 Last Admin: 03/01/23 17:08 Dose: 800 mg Insulin Aspart (Insulin Aspart Per Unit Charge) 0 units SC ACHS [facility] Stop: 03/28/23 00:36 Last Admin: 03/01/23 17:31 Dose: 1,000 units Insulin Glargine (Lantus Per Unit Charge) 5 units SQ DAILY [facility] Stop: 03/28/23 08:59 Last Admin: 03/01/23 08:20 Dose: 5 units Lactobacillus Acidophilus (Advanced Probiotic 1250 Mg Capsule) 2 cap PO BID [facility] Stop: 03/28/23 08:59 Last Admin: 03/01/23 08:11 Dose: 2 cap Latanoprost (Latanoprost 0.005% Op Soln 2.5 Ml Btl) 1 drops OP QPM [facility] Stop: 03/28/23 00:36 Last Admin: 02/28/23 19:59 Dose: 1 drops Lorazepam (Lorazepam 0.5 Mg Tab) 0.5 mg PO TID PRN PRN Reason: Anxiety Stop: 03/28/23 00:36 Lorazepam (Lorazepam 0.5 Mg Tab) 0.5 mg PO HS PRN PRN Reason: insomnia Stop: 03/28/23 00:36 Melatonin (Melatonin 3 Mg Tab) 3 mg PO HS PRN PRN Reason: Sleep Stop: 03/28/23 00:36 Last Admin: 02/26/23 21:54 Dose: 3 mg Miscellaneous (Carbohydrates For Hypoglycemia ) 15 - 30 gm PO UD PRN PRN Reason: Hypoglycemia Protocol Stop: 03/28/23 00:36 Multivitamins (Multivitamin Tab) 1 tab PO QAM [facility] Stop: 03/28/23 08:59 Last Admin: 03/01/23 08:11 Dose: 1 tab Nystatin (Nystatin Powder 15gm Btl) 1 appln EXT BID PRN PRN Reason: inflammed skin creases/folds Stop: 03/28/23 04:53 Last Admin: 02/28/23 16:54 Dose: 1 appln Oxycodone HCl (Oxycodone Hcl Ir 5 Mg Tab (Immediate Release)) 5 - 10 mg PO QID PRN PRN Reason: Pain Stop: 03/14/23 20:58 Last Admin: 03/01/23 08:46 Dose: 10 mg Pantoprazole Sodium (Pantoprazole 40 Mg Tab) 40 mg PO BID [facility] Stop: 03/28/23 08:59 Last Admin: 03/01/23 08:11 Dose: 40 mg Ropinirole HCl (Ropinirole Hcl 1 Mg Tablet) 1 mg PO HS [facility] Stop: 03/28/23 20:59 Last Admin: 02/28/23 19:59 Dose: 1 mg Tizanidine HCl (Tizanidine Hcl 4 Mg Tablet) 4 mg PO TID PRN PRN Reason: spasm Stop: 03/28/23 13:59 Last Admin: 02/28/23 18:18 Dose: 4 mg Umeclidinium/Vilanterol (Umeclidinium/Vilanterol 62.5/25mcg 7 Puffs/Inhaler) 1 puffs INH QAM [facility] Stop: 03/28/23 08:59 Last Admin: 03/01/23 08:14 Dose: 1 puffs
[2023-03-01] MEDS: rOPINIRole HCL 1 MG TABLET PO SCH (20:45)
[2023-03-01] MEDS: LATANOPROST 0.005% OP SOLN 2.5 ML BTL OP SCH (20:47)
[2023-03-01] MEDS: ATORVASTATIN 40 MG TAB PO SCH (20:47)
[2023-03-02] MEDS: IBUPROFEN 800 MG TAB PO SCH ×3 (05:49→20:50)
[2023-03-02] MEDS: UMECLIDINIUM/VILANTEROL 62.5/25MCG 7 PUFFS/INHALER INH SCH (07:58)
[2023-03-02] MEDS: FLUTICASONE PROPIONATE NA SPR 16 GM BTL SCH (07:58)
[2023-03-02] MEDS: ENOXAPARIN INJ 40 MG/0.4 ML SYR SQ SCH (07:58)
[2023-03-02] MEDS: CYANOCOBALAMIN (B-12) 100 MCG TABLET PO SCH (07:59)
[2023-03-02] MEDS: ADVANCED PROBIOTIC 1250 MG CAPSULE PO SCH ×2 (07:59→20:39)
[2023-03-02] MEDS: CETIRIZINE HCL 10 MG TABLET PO SCH (07:59)
[2023-03-02] MEDS: PANTOprazole 40 MG TAB PO SCH ×2 (07:59→20:39)
[2023-03-02] MEDS: FLUTICASONE FUROATE 100MCG 14 PUFFS/INHALER INH SCH (07:59)
[2023-03-02] MEDS: MULTIVITAMIN TAB PO SCH (07:59)
[2023-03-02] MEDS: DIVALPROEX DELAY RELEASE 500 MG TAB PO SCH ×2 (07:59→20:40)
[2023-03-02] MEDS: ASPIRIN 81 MG ECTAB PO SCH (08:00)
[2023-03-02] MEDS: INSULIN ASPART PER UNIT CHARGE SC SCH ×4 (08:21→20:40)
[2023-03-02] MEDS: LANTUS PER UNIT CHARGE SQ SCH (08:21)
--- NOTE | 2023-03-02 08:36 | Hospitalist Progress Note ---
Date of Service March 02, 2023 Assessment & Plan (1) Recurrent falls: (2) Bilateral knee pain: (3) Ataxia: (4) Morbid obesity: (5) History of right breast cancer: (6) Diabetes mellitus, type 2: Plan Mechanical fall History of ataxia Patient is a 73-year-old female with history of ataxia presents to the hospital after mechanical fall. Recently completed course of Bactrim for UTI. Denies chest pain or shortness of breath. Seen by neurology; Dr. Del Castillo in December 20. No clear cause for ataxia; had recommended MRI brain but patient has significant claustrophobia. He recommended restarting Requip 0.5mg twice daily for restless leg syndrome. She takes Requip at night but does not believe she has restless leg syndrome at this time. Holding off on additional Requip. MRI overnight revealed small vessel ischemic/degenerative changes with cerebral and cerebellar atrophy. Results were explained to the patient Zanaflex added for spasms. PT OT recs SNF Knee xrays reveal no evidence of fracture bilaterally. Pain improved, cont ibuprofen Abnormal CT chest CTA chest reviewed; no PE. Cardiomegaly. 1 cm indeterminate sclerotic lesion within right side of the T4 vertebral body. Follow-up nonemergent bone scan recommended. Chronic conditions: DM 2 insulin requiring, well-controlled as of hemoglobin A1c of 5.6 last December 2021. Hold home metformin. Worsening ambulatory dysfunction secondary to illness, history ataxia as per records possible RLS, unimproved on current ropinirole regimen Right breast cancer status post surgery/radiotherapy, currently in remission anxiety/mood disorder, stable past tobacco abuse Full code DVT prophylaxis Lovenox Dispo-to [facility] DO [facility] Hospitalist Admission and Anticipated Discharge Date Admission Date: February 25, 2023 Subjective 73-year-old female with an 18-month history of ataxia of uncertain etiology presents for bilateral knee pain and mobility issues after a fall at home. pain in knees is improved with the ibuprofena and ice she was up and moving more today I spoke with her by phone this morning and discussed the MRI findings and how she is doing overall. All questions were answered. Review of Systems Review of Systems: All systems reviewed negative except as indicated above. Physical Exam Physical Exam: CONSTITUTIONAL: morbid obesity, vitals as above, generally well-appearing, NAD EYES: normal conjunctivae, no scleral icterus ENT: external ear and nose normal, MMM NECK: trachea midline RESPIRATORY: clear to auscultation bilaterally, no crackles, rales or wheezes, normal respiratory effort CARDIOVASCULAR: regular rate and rhythm, S1 and 2 heard without murmurs, gallops or rubs, no JVD, no peripheral edema CHEST: inspection of chest was normal GASTROINTESTINAL: soft, protubernt, nontender, ND, no guarding MUSCULOSKELETAL: Limited range of motion in the lower extremity specific knee with flexion extension of the knees bilaterally. The patient is obese which makes physical exam and movements somewhat difficult. She is also an uncontrolled pain. Dorsiflexion plantarflexion intact bilaterally. Head is normocephalic and atraumatic, neck supple SKIN: warm and dry NEUROLOGIC: CN 2-12 grossly intact, no sensory deficit, normal cognition, normal speech, no tremor PSYCHIATRIC: alert cooperative and oriented to person, place and time. Euthymic mood, makes good eye contact, language grossly intact, recent and remote memory grossly intact. Results & Data Results & Data Vital Signs (Past 12 Hours) Vital Signs Temp Pulse Pulse Resp BP Pulse Ox O2 Del Method 03/02/23 07:52 36.5 C 70 20 152/88 H 93 Room Air 03/02/23 07:29 68 03/02/23 03:41 36.7 C 67 16 148/73 H 95 Room Air 03/02/23 02:22 Room Air 03/01/23 22:01 75 03/01/23 23:34 36.5 C 77 16 144/81 H 93 Room Air Medications Administered Current Inpatient Medications Acetaminophen (Acetaminophen 325 Mg Tab) 325 mg PO Q6H PRN PRN Reason: Pain Stop: 03/28/23 00:36 Last Admin: 03/01/23 12:40 Dose: 325 mg Aspirin (Aspirin 81 Mg Ectab) 81 mg PO DAILY [facility] Stop: 03/28/23 08:59 Last Admin: 03/02/23 08:00 Dose: 81 mg Atorvastatin Calcium (Atorvastatin 40 Mg Tab) 40 mg PO HS [facility] Stop: 03/28/23 20:59 Last Admin: 03/01/23 20:47 Dose: 40 mg Cetirizine HCl (Cetirizine Hcl 10 Mg Tablet) 10 mg PO QAM [facility] Stop: 03/28/23 08:59 Last Admin: 03/02/23 07:59 Dose: 10 mg Cyanocobalamin (Cyanocobalamin (B-12) 100 Mcg Tablet) 100 mcg PO DAILY [facility] Stop: 03/28/23 08:59 Last Admin: 03/02/23 07:59 Dose: 100 mcg Dextrose (Dextrose 50% 50 Ml Syringe) 25 - 50 ml IV UD PRN; Protocol PRN Reason: Hypoglycemia Protocol Stop: 03/28/23 00:36 Divalproex Sodium (Divalproex Delay Release 500 Mg Tab) 500 mg PO BID [facility] Stop: 03/28/23 00:36 Last Admin: 03/02/23 07:59 Dose: 500 mg Enoxaparin Sodium (Enoxaparin Inj 40 Mg/0.4 Ml Syr) 40 mg SQ QAM [facility] Stop: 03/28/23 08:59 Last Admin: 03/02/23 07:58 Dose: 40 mg Fluticasone Furoate (Fluticasone Furoate 100mcg 14 Puffs/Inhaler) 1 puffs INH [facility]AM [facility] Stop: 03/28/23 08:59 Last Admin: 03/02/23 07:59 Dose: 1 puffs Fluticasone Propionate (Fluticasone Propionate Na Spr 16 Gm Btl) 1 sprays NA [facility]AM [facility] Stop: 03/28/23 08:59 Last Admin: 03/02/23 07:58 Dose: 1 sprays Glucagon (Glucagon For Inj 1 Mg Vial) 1 mg SQ UD PRN; Protocol PRN Reason: Hypoglycemia Protocol Stop: 03/28/23 00:36 Glucose (Glucose 10 Tab/Tube) 4 - 8 tab PO UD PRN; Protocol PRN Reason: Hypoglycemia Treatment Stop: 03/28/23 00:36 Glucose (Glucose 40% Gel 15 Gm Tube) 15 - 30 gm PO UD PRN; Protocol PRN Reason: Hypoglycemia Protocol Stop: 03/28/23 00:36 Promethazine HCl 12.5 mg/ (Sodium Chloride) 50.5 mls @ 202 mls/hr IV Q6H PRN PRN Reason: Nausea And Vomiting Stop: 03/27/23 23:07 Ibuprofen (Ibuprofen 800 Mg Tab) 800 mg PO Q8 [facility] Stop: 03/31/23 16:14 Last Admin: 03/02/23 05:49 Dose: 800 mg Insulin Aspart (Insulin Aspart Per Unit Charge) 0 units SC ACHS [facility] Stop: 03/28/23 00:36 Last Admin: 03/02/23 08:21 Dose: 2 units Insulin Glargine (Lantus Per Unit Charge) 5 units SQ DAILY [facility] Stop: 03/28/23 08:59 Last Admin: 03/02/23 08:21 Dose: 5 units Lactobacillus Acidophilus (Advanced Probiotic 1250 Mg Capsule) 2 cap PO BID [facility] Stop: 03/28/23 08:59 Last Admin: 03/02/23 07:59 Dose: 2 cap Latanoprost (Latanoprost 0.005% Op Soln 2.5 Ml Btl) 1 drops OP QPM [facility] Stop: 03/28/23 00:36 Last Admin: 03/01/23 20:47 Dose: 1 drops Lorazepam (Lorazepam 0.5 Mg Tab) 0.5 mg PO TID PRN PRN Reason: Anxiety Stop: 03/28/23 00:36 Lorazepam (Lorazepam 0.5 Mg Tab) 0.5 mg PO HS PRN PRN Reason: insomnia Stop: 03/28/23 00:36 Melatonin (Melatonin 3 Mg Tab) 3 mg PO HS PRN PRN Reason: Sleep Stop: 03/28/23 00:36 Last Admin: 02/26/23 21:54 Dose: 3 mg Miscellaneous (Carbohydrates For Hypoglycemia ) 15 - 30 gm PO UD PRN PRN Reason: Hypoglycemia Protocol Stop: 03/28/23 00:36 Multivitamins (Multivitamin Tab) 1 tab PO QAM [facility] Stop: 03/28/23 08:59 Last Admin: 03/02/23 07:59 Dose: 1 tab Nystatin (Nystatin Powder 15gm Btl) 1 appln EXT BID PRN PRN Reason: inflammed skin creases/folds Stop: 03/28/23 04:53 Last Admin: 02/28/23 16:54 Dose: 1 appln Oxycodone HCl (Oxycodone Hcl Ir 5 Mg Tab (Immediate Release)) 5 - 10 mg PO QID PRN PRN Reason: Pain Stop: 03/14/23 20:58 Last Admin: 03/01/23 08:46 Dose: 10 mg Pantoprazole Sodium (Pantoprazole 40 Mg Tab) 40 mg PO BID [facility] Stop: 03/28/23 08:59 Last Admin: 03/02/23 07:59 Dose: 40 mg Ropinirole HCl (Ropinirole Hcl 1 Mg Tablet) 1 mg PO HS [facility] Stop: 03/28/23 20:59 Last Admin: 03/01/23 20:45 Dose: 1 mg Tizanidine HCl (Tizanidine Hcl 4 Mg Tablet) 4 mg PO TID PRN PRN Reason: spasm Stop: 03/28/23 13:59 Last Admin: 02/28/23 18:18 Dose: 4 mg Umeclidinium/Vilanterol (Umeclidinium/Vilanterol 62.5/25mcg 7 Puffs/Inhaler) 1 puffs INH QAM [facility] Stop: 03/28/23 08:59 Last Admin: 03/02/23 07:58 Dose: 1 puffs
[2023-03-02] MEDS: rOPINIRole HCL 1 MG TABLET PO SCH (20:39)
[2023-03-02] MEDS: LATANOPROST 0.005% OP SOLN 2.5 ML BTL OP SCH (20:40)
[2023-03-02] MEDS: ATORVASTATIN 40 MG TAB PO SCH (20:40)
[2023-03-03] MEDS: IBUPROFEN 800 MG TAB PO SCH ×3 (06:06→20:40)
[2023-03-03] MEDS: INSULIN ASPART PER UNIT CHARGE SC SCH ×4 (08:34→20:45)
[2023-03-03] MEDS: LANTUS PER UNIT CHARGE SQ SCH (08:35)
[2023-03-03] MEDS: DIVALPROEX DELAY RELEASE 500 MG TAB PO SCH ×2 (08:47→20:41)
[2023-03-03] MEDS: CYANOCOBALAMIN (B-12) 100 MCG TABLET PO SCH (08:47)
[2023-03-03] MEDS: PANTOprazole 40 MG TAB PO SCH ×2 (08:47→20:39)
[2023-03-03] MEDS: ADVANCED PROBIOTIC 1250 MG CAPSULE PO SCH ×2 (08:47→20:39)
[2023-03-03] MEDS: MULTIVITAMIN TAB PO SCH (08:47)
[2023-03-03] MEDS: ASPIRIN 81 MG ECTAB PO SCH (08:47)
[2023-03-03] MEDS: CETIRIZINE HCL 10 MG TABLET PO SCH (08:47)
[2023-03-03] MEDS: FLUTICASONE FUROATE 100MCG 14 PUFFS/INHALER INH SCH (08:48)
[2023-03-03] MEDS: UMECLIDINIUM/VILANTEROL 62.5/25MCG 7 PUFFS/INHALER INH SCH (08:48)
[2023-03-03] MEDS: FLUTICASONE PROPIONATE NA SPR 16 GM BTL SCH (08:48)
[2023-03-03] MEDS: ENOXAPARIN INJ 40 MG/0.4 ML SYR SQ SCH (08:49)
--- NOTE | 2023-03-03 09:07 | Hospitalist Progress Note ---
Date of Service March 03, 2023 Assessment & Plan (1) Recurrent falls: (2) Bilateral knee pain: (3) Ataxia: (4) Morbid obesity: (5) History of right breast cancer: (6) Diabetes mellitus, type 2: Plan Mechanical fall History of ataxia Patient is a 73-year-old female with history of ataxia presents to the hospital after mechanical fall. Recently completed course of Bactrim for UTI. Denies chest pain or shortness of breath. Seen by neurology; Dr. Del Castillo in December 20. No clear cause for ataxia; had recommended MRI brain but patient has significant claustrophobia. He recommended restarting Requip 0.5mg twice daily for restless leg syndrome. She takes Requip at night but does not believe she has restless leg syndrome at this time. Holding off on additional Requip. MRI overnight revealed small vessel ischemic/degenerative changes with cerebral and cerebellar atrophy. Results were explained to the patient Zanaflex added for spasms. PT OT recs SNF Knee xrays reveal no evidence of fracture bilaterally. Pain improved, cont ibuprofen Abnormal CT chest CTA chest reviewed; no PE. Cardiomegaly. 1 cm indeterminate sclerotic lesion within right side of the T4 vertebral body. Follow-up nonemergent bone scan recommended. BPPV -has history of this per chart review -will give trial of meclizine -will ask pt for Gail maneuver assistance Chronic conditions: DM 2 insulin requiring, well-controlled as of hemoglobin A1c of 5.6 last December 2021. Hold home metformin. Worsening ambulatory dysfunction secondary to illness, history ataxia as per records possible RLS, unimproved on current ropinirole regimen Right breast cancer status post surgery/radiotherapy, currently in remission anxiety/mood disorder, stable past tobacco abuse Full code DVT prophylaxis Lovenox [facility] Admission and Anticipated Discharge Date Admission Date: February 25, 2023 Subjective 73-year-old female with an 18-month history of ataxia of uncertain etiology presents for bilateral knee pain and mobility issues after a fall at home. pain in knees is improved with the ibuprofen and ice she continues to work with therapy sessions she reports dizziness this morning intermittently and is worse with position she has a h/o BPPV trial of meclizine discussed and will ask PT about Gail maneuver as a possible treatment. at bedside with her and states she has been dealing with this for years, even before the ataxia. Review of Systems Review of Systems: All systems reviewed negative except as indicated above. Physical Exam Physical Exam: CONSTITUTIONAL: morbid obesity, vitals as above, generally well-appearing, NAD EYES: normal conjunctivae, no scleral icterus ENT: external ear and nose normal, MMM NECK: trachea midline RESPIRATORY: clear to auscultation bilaterally, no crackles, rales or wheezes, normal respiratory effort CARDIOVASCULAR: regular rate and rhythm, S1 and 2 heard without murmurs, gallops or rubs, no JVD, no peripheral edema CHEST: inspection of chest was normal GASTROINTESTINAL: soft, protuberant, nontender, ND, no guarding MUSCULOSKELETAL: Limited range of motion in the lower extremity specific knee with flexion extension of the knees bilaterally but this is improved today. Pain appears controlled. There is no palpable bump on her posterior left knee, where she has a concern today. Head is normocephalic and atraumatic SKIN: warm and dry NEUROLOGIC: CN 2-12 grossly intact, no sensory deficit, normal cognition, normal speech, no tremor PSYCHIATRIC: alert cooperative and oriented to person, place and time. Euthymic mood, makes good eye contact, language grossly intact, recent and remote memory grossly intact. Results & Data Results & Data Vital Signs (Past 12 Hours) Vital Signs Temp Pulse Resp BP Pulse Ox O2 Del Method 03/03/23 08:15 36.6 C 69 20 120/78 90 Room Air 03/02/23 23:00 36.6 C 77 18 133/77 93 Room Air 03/02/23 22:25 36.6 C 77 18 133/77 90 Room Air Laboratory Results Short CBC 03/03/23 Range/Units 08:48 WBC 6.85 (4.8-10.8) K/ul Hgb 12.9 (12.0-16.0) g/dl Hct 40.1 (37.0-47.0) % Plt Count 309 (130-400) K/uL BMP 03/03/23 09:51 Sodium 140 Potassium 3.9 Chloride 105 Carbon Dioxide 26 BUN 9 Creatinine 0.64 Glucose 197 H Calcium 9.3 Medications Administered Current Inpatient Medications Acetaminophen (Acetaminophen 325 Mg Tab) 325 mg PO Q6H PRN PRN Reason: Pain Stop: 03/28/23 00:36 Last Admin: 03/01/23 12:40 Dose: 325 mg Albuterol (Albuterol Hfa 8 Gm Inhaler) 2 puffs INH Q6R PRN PRN Reason: SOB/wheezng Stop: 04/02/23 13:17 Aspirin (Aspirin 81 Mg Ectab) 81 mg PO DAILY [facility] Stop: 03/28/23 08:59 Last Admin: 03/03/23 08:47 Dose: 81 mg Atorvastatin Calcium (Atorvastatin 40 Mg Tab) 40 mg PO HS [facility] Stop: 03/28/23 20:59 Last Admin: 03/02/23 20:40 Dose: 40 mg Cetirizine HCl (Cetirizine Hcl 10 Mg Tablet) 10 mg PO QAM [facility] Stop: 03/28/23 08:59 Last Admin: 03/03/23 08:47 Dose: 10 mg Cyanocobalamin (Cyanocobalamin (B-12) 100 Mcg Tablet) 100 mcg PO DAILY [facility] Stop: 03/28/23 08:59 Last Admin: 03/03/23 08:47 Dose: 100 mcg Dextrose (Dextrose 50% 50 Ml Syringe) 25 - 50 ml IV UD PRN; Protocol PRN Reason: Hypoglycemia Protocol Stop: 03/28/23 00:36 Divalproex Sodium (Divalproex Delay Release 500 Mg Tab) 500 mg PO BID [facility] Stop: 03/28/23 00:36 Last Admin: 03/03/23 08:47 Dose: 500 mg Enoxaparin Sodium (Enoxaparin Inj 40 Mg/0.4 Ml Syr) 40 mg SQ QAM [facility] Stop: 03/28/23 08:59 Last Admin: 03/03/23 08:49 Dose: 40 mg Fluticasone Furoate (Fluticasone Furoate 100mcg 14 Puffs/Inhaler) 1 puffs INH QAM [facility] Stop: 03/28/23 08:59 Last Admin: 03/03/23 08:48 Dose: 1 puffs Fluticasone Propionate (Fluticasone Propionate Na Spr 16 Gm Btl) 1 sprays NA QAM [facility] Stop: 03/28/23 08:59 Last Admin: 03/03/23 08:48 Dose: 1 sprays Glucagon (Glucagon For Inj 1 Mg Vial) 1 mg SQ UD PRN; Protocol PRN Reason: Hypoglycemia Protocol Stop: 03/28/23 00:36 Glucose (Glucose 10 Tab/Tube) 4 - 8 tab PO UD PRN; Protocol PRN Reason: Hypoglycemia Treatment Stop: 03/28/23 00:36 Glucose (Glucose 40% Gel 15 Gm Tube) 15 - 30 gm PO UD PRN; Protocol PRN Reason: Hypoglycemia Protocol Stop: 03/28/23 00:36 Promethazine HCl 12.5 mg/ (Sodium Chloride) 50.5 mls @ 202 mls/hr IV Q6H PRN PRN Reason: Nausea And Vomiting Stop: 03/27/23 23:07 Ibuprofen (Ibuprofen 800 Mg Tab) 800 mg PO Q8 [facility] Stop: 03/31/23 16:14 Last Admin: 03/03/23 06:06 Dose: 800 mg Insulin Aspart (Insulin Aspart Per Unit Charge) 0 units SC ACHS [facility] Stop: 03/28/23 00:36 Last Admin: 03/03/23 12:16 Dose: 7 units Insulin Glargine (Lantus Per Unit Charge) 5 units SQ DAILY [facility] Stop: 03/28/23 08:59 Last Admin: 03/03/23 08:35 Dose: 5 units Lactobacillus Acidophilus (Advanced Probiotic 1250 Mg Capsule) 2 cap PO BID [facility] Stop: 03/28/23 08:59 Last Admin: 03/03/23 08:47 Dose: 2 cap Latanoprost (Latanoprost 0.005% Op Soln 2.5 Ml Btl) 1 drops OP QPM [facility] Stop: 03/28/23 00:36 Last Admin: 03/02/23 20:40 Dose: 1 drops Lorazepam (Lorazepam 0.5 Mg Tab) 0.5 mg PO TID PRN PRN Reason: Anxiety Stop: 03/28/23 00:36 Lorazepam (Lorazepam 0.5 Mg Tab) 0.5 mg PO HS PRN PRN Reason: insomnia Stop: 03/28/23 00:36 Melatonin (Melatonin 3 Mg Tab) 3 mg PO HS PRN PRN Reason: Sleep Stop: 03/28/23 00:36 Last Admin: 02/26/23 21:54 Dose: 3 mg Miscellaneous (Carbohydrates For Hypoglycemia ) 15 - 30 gm PO UD PRN PRN Reason: Hypoglycemia Protocol Stop: 03/28/23 00:36 Multivitamins (Multivitamin Tab) 1 tab PO QAM [facility] Stop: 03/28/23 08:59 Last Admin: 03/03/23 08:47 Dose: 1 tab Nystatin (Nystatin Powder 15gm Btl) 1 appln EXT BID PRN PRN Reason: inflammed skin creases/folds Stop: 03/28/23 04:53 Last Admin: 02/28/23 16:54 Dose: 1 appln Oxycodone HCl (Oxycodone Hcl Ir 5 Mg Tab (Immediate Release)) 5 - 10 mg PO QID PRN PRN Reason: Pain Stop: 03/14/23 20:58 Last Admin: 03/01/23 08:46 Dose: 10 mg Pantoprazole Sodium (Pantoprazole 40 Mg Tab) 40 mg PO BID [facility] Stop: 03/28/23 08:59 Last Admin: 03/03/23 08:47 Dose: 40 mg Ropinirole HCl (Ropinirole Hcl 1 Mg Tablet) 1 mg PO HS [facility] Stop: 03/28/23 20:59 Last Admin: 03/02/23 20:39 Dose: 1 mg Tizanidine HCl (Tizanidine Hcl 4 Mg Tablet) 4 mg PO TID PRN PRN Reason: spasm Stop: 03/28/23 13:59 Last Admin: 02/28/23 18:18 Dose: 4 mg Umeclidinium/Vilanterol (Umeclidinium/Vilanterol 62.5/25mcg 7 Puffs/Inhaler) 1 puffs INH QAM [facility] Stop: 03/28/23 08:59 Last Admin: 03/03/23 08:48 Dose: 1 puffs
[2023-03-03 09:22] LABS: Hematocrit (blood only) 40.1 % (37.0-47.0); Hemoglobin 12.9 g/dl (12.0-16.0); Mean Corpuscular Hemoglobin 26.2 pg (25.0-34.0); Mean Corpuscular Hgb Conc 32.2 g/dL (32.0-36.0); Mean Corpuscular Volume 81.5 fL (80.0-100.0); Mean Platelet Volume 8.9 fL (9.4-12.4); Platelet Count 309 K/uL (130-400); RDW Coefficient of Variation 16.1 % (11.5-14.5); RDW Standard Deviation 47.5 fL (36.4-46.3); Red Blood Count 4.92 M/uL (4.20-5.40); White Blood Count 6.85 K/ul (4.8-10.8)
[2023-03-03 10:21] LABS: Basophils # (auto) 0.07 K/uL (0-0.2); Echinocytes 1+; Eosinophils # (auto) 0.35 K/uL (0-0.50); Eosinophils % (auto) 5.1 %; Immature Granulocytes # (auto) 0.35 K/uL (0.01-0.20); Immature Granulocytes % (auto) 5.1 %; Lymphocytes # (auto) 1.93 K/uL (1.2-3.4); Lymphocytes % (auto) 28.2 %; Monocytes # (auto) 0.63 K/uL (0.11-0.59); Monocytes % (auto) 9.2 %; Neutrophils # (auto) 3.52 K/uL (1.40-6.50); Neutrophils % (auto) 51.4 %; Polychromasia 1+
[2023-03-03 10:43] LABS: BUN Creatinine Ratio 14.1 (10-20); Calcium 9.3 mg/dl (8.6-10.3); Creatinine Clr Calc Pharmacy 93.2 ml/min; Est GFR (African American) 103.3 ml/min; Est GFR (Non-African American) 89.2 ml/min; Potassium 3.9 mmol/L (3.5-5.1)
[2023-03-03] MEDS ORDERED: MECLIZINE HCL 25 MG TAB PO STA (13:16)
[2023-03-03] MEDS ORDERED: ALBUTEROL HFA 8 GM INHALER INH PRN (13:18)
[2023-03-03] MEDS: oxyCODONE HCL IR 5 MG TAB (IMMEDIATE RELEASE) PO PRN (20:38)
[2023-03-03] MEDS: LATANOPROST 0.005% OP SOLN 2.5 ML BTL OP SCH (20:39)
[2023-03-03] MEDS: ATORVASTATIN 40 MG TAB PO SCH (20:39)
[2023-03-03] MEDS: rOPINIRole HCL 1 MG TABLET PO SCH (20:40)
[2023-03-03] MEDS: tiZANidine HCL 4 MG TABLET PO PRN (20:41)
[2023-03-03] MEDS: MELATONIN 3 MG TAB PO PRN (20:41)
[2023-03-04] MEDS: IBUPROFEN 800 MG TAB PO SCH ×3 (05:24→21:08)
[2023-03-04] MEDS: ADVANCED PROBIOTIC 1250 MG CAPSULE PO SCH ×2 (09:03→21:07)
[2023-03-04] MEDS: DIVALPROEX DELAY RELEASE 500 MG TAB PO SCH ×2 (09:03→21:07)
[2023-03-04] MEDS: PANTOprazole 40 MG TAB PO SCH ×2 (09:03→21:08)
[2023-03-04] MEDS: MULTIVITAMIN TAB PO SCH (09:03)
[2023-03-04] MEDS: ENOXAPARIN INJ 40 MG/0.4 ML SYR SQ SCH (09:03)
[2023-03-04] MEDS: CETIRIZINE HCL 10 MG TABLET PO SCH (09:03)
[2023-03-04] MEDS: ASPIRIN 81 MG ECTAB PO SCH (09:03)
[2023-03-04] MEDS: FLUTICASONE FUROATE 100MCG 14 PUFFS/INHALER INH SCH (09:03)
[2023-03-04] MEDS: FLUTICASONE PROPIONATE NA SPR 16 GM BTL SCH (09:04)
[2023-03-04] MEDS: UMECLIDINIUM/VILANTEROL 62.5/25MCG 7 PUFFS/INHALER INH SCH (09:04)
[2023-03-04] MEDS: CYANOCOBALAMIN (B-12) 100 MCG TABLET PO SCH (09:04)
[2023-03-04] MEDS: INSULIN ASPART PER UNIT CHARGE SC SCH ×4 (09:06→20:37)
[2023-03-04] MEDS: LANTUS PER UNIT CHARGE SQ SCH (09:07)
--- NOTE | 2023-03-04 10:20 | Hospitalist Progress Note ---
Date of Service March 04, 2023 Assessment & Plan (1) Recurrent falls: (2) Bilateral knee pain: (3) Ataxia: (4) Morbid obesity: (5) History of right breast cancer: (6) Diabetes mellitus, type 2: (7) BPPV (benign paroxysmal positional vertigo): Plan Mechanical fall History of ataxia Patient is a 73-year-old female with history of ataxia presents to the hospital after mechanical fall. Recently completed course of Bactrim for UTI. Denies chest pain or shortness of breath. Seen by neurology; Dr. Del Castillo in December 20. No clear cause for ataxia; had recommended MRI brain but patient has significant claustrophobia. He recommended restarting Requip 0.5mg twice daily for restless leg syndrome. She takes Requip at night but does not believe she has restless leg syndrome at this time. Holding off on additional Requip. MRI this admission reveals small vessel ischemic/degenerative changes with cerebral and cerebellar atrophy. Results were explained to the patient and her by phone. Zanaflex added for spasms. PT OT recs SNF Knee xrays reveal no evidence of fracture bilaterally. Pain improved, cont ibuprofen/ice and supportive care. Abnormal CT chest CTA chest reviewed; no PE. Cardiomegaly. 1 cm indeterminate sclerotic lesion within right side of the T4 vertebral body. Follow-up nonemergent bone scan recommended. BPPV -has history of this per chart review -will give trial of meclizine -will ask pt for Gail maneuver assistance Chronic conditions: DM 2 insulin requiring, well-controlled as of hemoglobin A1c of 5.6 last December 2021. Hold home metformin. Worsening ambulatory dysfunction secondary to illness, history ataxia as per records possible RLS, unimproved on current ropinirole regimen Right breast cancer status post surgery/radiotherapy, currently in remission anxiety/mood disorder, stable past tobacco abuse Full code DVT prophylaxis Lovenox Dispo-to SNF DO [facility] Hospitalist Admission and Anticipated Discharge Date Admission Date: February 25, 2023 Subjective 73-year-old female with an 18-month history of ataxia of uncertain etiology presents for bilateral knee pain and mobility issues after a fall at home. I came in half way during the Gail maneuver and jumped in to help PT She was getting symptomatic with vertigo by layng back and turning her head Although no nystagmus was noted. She tried to roll onto her side but this was difficult with the pain in her neck and in her legs and her overall level of deconditioning. Physical Exam Physical Exam: CONSTITUTIONAL: morbid obesity, vitals as above EYES: normal conjunctivae, no scleral icterus ENT: external ear and nose normal, MMM NECK: trachea midline RESPIRATORY: normal respiratory effort CARDIOVASCULAR: no peripheral edema GASTROINTESTINAL: soft, protuberant, ND MUSCULOSKELETAL: difficulty moving around and performing Gail maneuver in the bed, difficulty rolling from a supine position to the right lateral position and required max assist for her to sit up from there. SKIN: warm and dry NEUROLOGIC: CN 2-12 grossly intact, normal cognition, normal speech, no tremor PSYCHIATRIC: alert cooperative and oriented to person, place and time. Euthymic mood, makes good eye contact, language grossly intact, recent and remote memory grossly intact. I came back later to check on her and she was sleeping this afternoon. Did not wake her. Results & Data Results & Data Vital Signs (Past 12 Hours) Vital Signs Temp Pulse Pulse Resp BP Pulse Ox O2 Del Method 03/04/23 07:29 36.8 C 61 18 123/75 93 Room Air 03/03/23 23:45 36.6 C 60 18 113/66 93 Room Air 03/03/23 22:54 Room Air 03/03/23 22:49 Room Air Laboratory Results [facility] 03/03/23 09:51 Sodium 140 Potassium 3.9 Chloride 105 Carbon Dioxide 26 BUN 9 Creatinine 0.64 Glucose 197 H Calcium 9.3 Medications Administered Current Inpatient Medications Acetaminophen (Acetaminophen 325 Mg Tab) 325 mg PO Q6H PRN PRN Reason: Pain Stop: 03/28/23 00:36 Last Admin: 03/01/23 12:40 Dose: 325 mg Albuterol (Albuterol Hfa 8 Gm Inhaler) 2 puffs INH Q6R PRN PRN Reason: SOB/wheezng Stop: 04/02/23 13:17 Aspirin (Aspirin 81 Mg Ectab) 81 mg PO DAILY [facility] Stop: 03/28/23 08:59 Last Admin: 03/04/23 09:03 Dose: 81 mg Atorvastatin Calcium (Atorvastatin 40 Mg Tab) 40 mg PO HS [facility] Stop: 03/28/23 20:59 Last Admin: 03/03/23 20:39 Dose: 40 mg Cetirizine HCl (Cetirizine Hcl 10 Mg Tablet) 10 mg PO QAM [facility] Stop: 03/28/23 08:59 Last Admin: 03/04/23 09:03 Dose: 10 mg Cyanocobalamin (Cyanocobalamin (B-12) 100 Mcg Tablet) 100 mcg PO DAILY [facility] Stop: 03/28/23 08:59 Last Admin: 03/04/23 09:04 Dose: 100 mcg Dextrose (Dextrose 50% 50 Ml Syringe) 25 - 50 ml IV UD PRN; Protocol PRN Reason: Hypoglycemia Protocol Stop: 03/28/23 00:36 Divalproex Sodium (Divalproex Delay Release 500 Mg Tab) 500 mg PO BID [facility] Stop: 03/28/23 00:36 Last Admin: 03/04/23 09:03 Dose: 500 mg Enoxaparin Sodium (Enoxaparin Inj 40 Mg/0.4 Ml Syr) 40 mg SQ [facility] Stop: 03/28/23 08:59 Last Admin: 03/04/23 09:03 Dose: 40 mg Fluticasone Furoate (Fluticasone Furoate 100mcg 14 Puffs/Inhaler) 1 puffs INH [facility] Stop: 03/28/23 08:59 Last Admin: 03/04/23 09:03 Dose: 1 puffs Fluticasone Propionate (Fluticasone Propionate Na Spr 16 Gm Btl) 1 sprays NA [facility] Stop: 03/28/23 08:59 Last Admin: 03/04/23 09:04 Dose: 1 sprays Glucagon (Glucagon For Inj 1 Mg Vial) 1 mg SQ UD PRN; Protocol PRN Reason: Hypoglycemia Protocol Stop: 03/28/23 00:36 Glucose (Glucose 10 Tab/Tube) 4 - 8 tab PO UD PRN; Protocol PRN Reason: Hypoglycemia Treatment Stop: 03/28/23 00:36 Glucose (Glucose 40% Gel 15 Gm Tube) 15 - 30 gm PO UD PRN; Protocol PRN Reason: Hypoglycemia Protocol Stop: 03/28/23 00:36 Promethazine HCl 12.5 mg/ (Sodium Chloride) 50.5 mls @ 202 mls/hr IV Q6H PRN PRN Reason: Nausea And Vomiting Stop: 03/27/23 23:07 Ibuprofen (Ibuprofen 800 Mg Tab) 800 mg PO Q8 [facility] Stop: 03/31/23 16:14 Last Admin: 03/04/23 05:24 Dose: 800 mg Insulin Aspart (Insulin Aspart Per Unit Charge) 0 units SC ACHS [facility] Stop: 03/28/23 00:36 Last Admin: 03/04/23 09:06 Dose: Not Given Insulin Glargine (Lantus Per Unit Charge) 5 units SQ DAILY [facility] Stop: 03/28/23 08:59 Last Admin: 03/04/23 09:07 Dose: 5 units Lactobacillus Acidophilus (Advanced Probiotic 1250 Mg Capsule) 2 cap PO BID [facility] Stop: 03/28/23 08:59 Last Admin: 03/04/23 09:03 Dose: 2 cap Latanoprost (Latanoprost 0.005% Op Soln 2.5 Ml Btl) 1 drops OP QPM [facility] Stop: 03/28/23 00:36 Last Admin: 03/03/23 20:39 Dose: 1 drops Lorazepam (Lorazepam 0.5 Mg Tab) 0.5 mg PO TID PRN PRN Reason: Anxiety Stop: 03/28/23 00:36 Lorazepam (Lorazepam 0.5 Mg Tab) 0.5 mg PO HS PRN PRN Reason: insomnia Stop: 03/28/23 00:36 Melatonin (Melatonin 3 Mg Tab) 3 mg PO HS PRN PRN Reason: Sleep Stop: 03/28/23 00:36 Last Admin: 03/03/23 20:41 Dose: 3 mg Miscellaneous (Carbohydrates For Hypoglycemia ) 15 - 30 gm PO UD PRN PRN Reason: Hypoglycemia Protocol Stop: 03/28/23 00:36 Multivitamins (Multivitamin Tab) 1 tab PO QAM [facility] Stop: 03/28/23 08:59 Last Admin: 03/04/23 09:03 Dose: 1 tab Nystatin (Nystatin Powder 15gm Btl) 1 appln EXT BID PRN PRN Reason: inflammed skin creases/folds Stop: 03/28/23 04:53 Last Admin: 02/28/23 16:54 Dose: 1 appln Oxycodone HCl (Oxycodone Hcl Ir 5 Mg Tab (Immediate Release)) 5 - 10 mg PO QID PRN PRN Reason: Pain Stop: 03/14/23 20:58 Last Admin: 03/03/23 20:38 Dose: 10 mg Pantoprazole Sodium (Pantoprazole 40 Mg Tab) 40 mg PO BID [facility] Stop: 03/28/23 08:59 Last Admin: 03/04/23 09:03 Dose: 40 mg Ropinirole HCl (Ropinirole Hcl 1 Mg Tablet) 1 mg PO HS [facility] Stop: 03/28/23 20:59 Last Admin: 03/03/23 20:40 Dose: 1 mg Tizanidine HCl (Tizanidine Hcl 4 Mg Tablet) 4 mg PO TID PRN PRN Reason: spasm Stop: 03/28/23 13:59 Last Admin: 03/03/23 20:41 Dose: 4 mg Umeclidinium/Vilanterol (Umeclidinium/Vilanterol 62.5/25mcg 7 Puffs/Inhaler) 1 puffs INH QAM [facility] Stop: 03/28/23 08:59 Last Admin: 03/04/23 09:04 Dose: 1 puffs
[2023-03-04] MEDS: tiZANidine HCL 4 MG TABLET PO PRN (13:53)
[2023-03-04] MEDS: MELATONIN 3 MG TAB PO PRN (20:37)
[2023-03-04] MEDS: LATANOPROST 0.005% OP SOLN 2.5 ML BTL OP SCH (20:38)
[2023-03-04] MEDS: ATORVASTATIN 40 MG TAB PO SCH (21:07)
[2023-03-04] MEDS: rOPINIRole HCL 1 MG TABLET PO SCH (21:08)
[2023-03-05] MEDS: IBUPROFEN 800 MG TAB PO SCH (05:40)
[2023-03-05] MEDS: INSULIN ASPART PER UNIT CHARGE SC SCH ×4 (08:39→21:09)
[2023-03-05] MEDS ORDERED: IBUPROFEN 800 MG TAB PO PRN (08:43)
[2023-03-05] MEDS: DIVALPROEX DELAY RELEASE 500 MG TAB PO SCH ×2 (08:44→20:05)
[2023-03-05] MEDS: tiZANidine HCL 4 MG TABLET PO PRN ×2 (08:44→14:22)
[2023-03-05] MEDS: ASPIRIN 81 MG ECTAB PO SCH (08:44)
[2023-03-05] MEDS: ENOXAPARIN INJ 40 MG/0.4 ML SYR SQ SCH (08:44)
[2023-03-05] MEDS: MULTIVITAMIN TAB PO SCH (08:44)
[2023-03-05] MEDS: PANTOprazole 40 MG TAB PO SCH ×2 (08:44→20:05)
[2023-03-05] MEDS: CYANOCOBALAMIN (B-12) 100 MCG TABLET PO SCH (08:45)
[2023-03-05] MEDS: ADVANCED PROBIOTIC 1250 MG CAPSULE PO SCH ×2 (08:45→20:05)
[2023-03-05] MEDS: CETIRIZINE HCL 10 MG TABLET PO SCH (08:45)
[2023-03-05] MEDS: FLUTICASONE FUROATE 100MCG 14 PUFFS/INHALER INH SCH (08:45)
[2023-03-05] MEDS: UMECLIDINIUM/VILANTEROL 62.5/25MCG 7 PUFFS/INHALER INH SCH (08:45)
[2023-03-05] MEDS: FLUTICASONE PROPIONATE NA SPR 16 GM BTL SCH (08:45)
[2023-03-05] MEDS: LANTUS PER UNIT CHARGE SQ SCH (08:49)
[2023-03-05] MEDS: ACETAMINOPHEN 500 MG TAB PO SCH ×2 (08:51→17:26)
--- NOTE | 2023-03-05 13:28 | Hospitalist Progress Note ---
Date of Service March 05, 2023 Assessment & Plan (1) Recurrent falls: (2) Bilateral knee pain: (3) Ataxia: (4) Morbid obesity: (5) History of right breast cancer: (6) Diabetes mellitus, type 2: (7) BPPV (benign paroxysmal positional vertigo): Plan Mechanical fall History of ataxia Patient is a 73-year-old female with history of ataxia presents to the hospital after mechanical fall. Recently completed course of Bactrim for UTI. Denies chest pain or shortness of breath. Seen by neurology; Dr. Del Castillo in December 20. No clear cause for ataxia; had recommended MRI brain but patient has significant claustrophobia. He recommended restarting Requip 0.5mg twice daily for restless leg syndrome. She takes Requip at night but does not believe she has restless leg syndrome at this time. Holding off on additional Requip. MRI this admission reveals small vessel ischemic/degenerative changes with cerebral and cerebellar atrophy. Results were explained to the patient and her by phone. Zanaflex added for spasms. PT OT recs SN[facility] Knee xrays reveal no evidence of fracture bilaterally. Pain improved, cont ibuprofen/ice and supportive care. Abnormal CT chest CTA chest reviewed; no PE. Cardiomegaly. 1 cm indeterminate sclerotic lesion within right side of the T4 vertebral body. Follow-up nonemergent bone scan recommended. BPPV -has history of this per chart review -Trial of meclizine was not successful -PT performed Gail at least twice yesterday with improvement this morning Chronic conditions: DM 2 insulin requiring, well-controlled as of hemoglobin A1c of 5.6 last December 2021. Hold home metformin. Worsening ambulatory dysfunction secondary to illness, history ataxia as per records possible RLS, unimproved on current ropinirole regimen Right breast cancer status post surgery/radiotherapy, currently in remission anxiety/mood disorder, stable past tobacco abuse Full code DVT prophylaxis Lovenox Dispo-to SNF [facility] Hospitalist Admission and Anticipated Discharge Date Admission Date: February 25, 2023 Subjective 73-year-old female with an 18-month history of ataxia of uncertain etiology presents for bilateral knee pain and mobility issues after a fall at home. Reports vertigo is improved since this morning Reports the Gail maneuver was done at least 2 times yesterday and was difficult but made her feel better Knee pain still present but stiffness and pain are improved each day She is encouraged to move around more today. Reported to her that Tylenol had been scheduled and ibuprofen was made as needed. She verbalized understanding Review of Systems Review of Systems: All systems reviewed negative except as indicated above. Physical Exam 2 Physical Exam: CONSTITUTIONAL: morbid obesity, vitals as above, generally well-appearing, NAD EYES: normal conjunctivae, no scleral icterus ENT: external ear and nose normal, MMM NECK: trachea midline RESPIRATORY: clear to auscultation bilaterally, no crackles, rales or wheezes, normal respiratory effort CARDIOVASCULAR: regular rate and rhythm, S1 and 2 heard without murmurs, gallops or rubs, no JVD, no peripheral edema CHEST: inspection of chest was normal GASTROINTESTINAL: soft, protubernt, nontender, ND, no guarding MUSCULOSKELETAL: Limited range of motion in the lower extremity specific knee with flexion extension of the knees bilaterally. The patient is obese which makes physical exam and movements somewhat difficult. She is also an uncontrolled pain. Dorsiflexion plantarflexion intact bilaterally. Head is normocephalic and atraumatic, neck supple SKIN: warm and dry NEUROLOGIC: CN 2-12 grossly intact, no sensory deficit, normal cognition, normal speech, no tremor PSYCHIATRIC: alert cooperative and oriented to person, place and time. Euthymic mood, makes good eye contact, language grossly intact, recent and remote memory grossly intact. Results & Data Results & Data Vital Signs (Past 12 Hours) Vital Signs Temp Pulse Resp BP Pulse Ox O2 Del Method 03/05/23 07:31 36.6 C 56 L 18 137/83 94 Room Air Medications Administered Current Inpatient Medications Acetaminophen (Acetaminophen 500 Mg Tab) 1,000 mg PO Q8H [facility] Stop: 04/04/23 08:59 Last Admin: 03/05/23 08:51 Dose: 1,000 mg Albuterol (Albuterol Hfa 8 Gm Inhaler) 2 puffs INH Q6R PRN PRN Reason: SOB/wheezng Stop: 04/02/23 13:17 Aspirin (Aspirin 81 Mg Ectab) 81 mg PO DAILY [facility] Stop: 03/28/23 08:59 Last Admin: 03/05/23 08:44 Dose: 81 mg Atorvastatin Calcium (Atorvastatin 40 Mg Tab) 40 mg PO HS [facility] Stop: 03/28/23 20:59 Last Admin: 03/04/23 21:07 Dose: 40 mg Cetirizine HCl (Cetirizine Hcl 10 Mg Tablet) 10 mg PO QAM [facility] Stop: 03/28/23 08:59 Last Admin: 03/05/23 08:45 Dose: 10 mg Cyanocobalamin (Cyanocobalamin (B-12) 100 Mcg Tablet) 100 mcg PO DAILY [facility] Stop: 03/28/23 08:59 Last Admin: 03/05/23 08:45 Dose: 100 mcg Dextrose (Dextrose 50% 50 Ml Syringe) 25 - 50 ml IV UD PRN; Protocol PRN Reason: Hypoglycemia Protocol Stop: 03/28/23 00:36 Divalproex Sodium (Divalproex Delay Release 500 Mg Tab) 500 mg PO BID [facility] Stop: 03/28/23 00:36 Last Admin: 03/05/23 08:44 Dose: 500 mg Enoxaparin Sodium (Enoxaparin Inj 40 Mg/0.4 Ml Syr) 40 mg SQ QAM [facility] Stop: 03/28/23 08:59 Last Admin: 03/05/23 08:44 Dose: 40 mg Fluticasone Furoate (Fluticasone Furoate 100mcg 14 Puffs/Inhaler) 1 puffs INH QAM [facility] Stop: 03/28/23 08:59 Last Admin: 03/05/23 08:45 Dose: 1 puffs Fluticasone Propionate (Fluticasone Propionate Na Spr 16 Gm Btl) 1 sprays NA QAM [facility] Stop: 03/28/23 08:59 Last Admin: 03/05/23 08:45 Dose: 1 sprays Glucagon (Glucagon For Inj 1 Mg Vial) 1 mg SQ UD PRN; Protocol PRN Reason: Hypoglycemia Protocol Stop: 03/28/23 00:36 Glucose (Glucose 10 Tab/Tube) 4 - 8 tab PO UD PRN; Protocol PRN Reason: Hypoglycemia Treatment Stop: 03/28/23 00:36 Glucose (Glucose 40% Gel 15 Gm Tube) 15 - 30 gm PO UD PRN; Protocol PRN Reason: Hypoglycemia Protocol Stop: 03/28/23 00:36 Promethazine HCl 12.5 mg/ (Sodium Chloride) 50.5 mls @ 202 mls/hr IV Q6H PRN PRN Reason: Nausea And Vomiting Stop: 03/27/23 23:07 Ibuprofen (Ibuprofen 800 Mg Tab) 800 mg PO Q8 PRN PRN Reason: pain Stop: 03/31/23 16:14 Insulin Aspart (Insulin Aspart Per Unit Charge) 0 units SC ACHS [facility] Stop: 03/28/23 00:36 Last Admin: 03/05/23 12:49 Dose: Not Given Insulin Glargine (Lantus Per Unit Charge) 5 units SQ DAILY [facility] Stop: 03/28/23 08:59 Last Admin: 03/05/23 08:49 Dose: 5 units Lactobacillus Acidophilus (Advanced Probiotic 1250 Mg Capsule) 2 cap PO BID [facility] Stop: 03/28/23 08:59 Last Admin: 03/05/23 08:45 Dose: 2 cap Latanoprost (Latanoprost 0.005% Op Soln 2.5 Ml Btl) 1 drops OP QPM [facility] Stop: 03/28/23 00:36 Last Admin: 03/04/23 20:38 Dose: 1 drops Lorazepam (Lorazepam 0.5 Mg Tab) 0.5 mg PO TID PRN PRN Reason: Anxiety Stop: 03/28/23 00:36 Lorazepam (Lorazepam 0.5 Mg Tab) 0.5 mg PO HS PRN PRN Reason: insomnia Stop: 03/28/23 00:36 Melatonin (Melatonin 3 Mg Tab) 3 mg PO HS PRN PRN Reason: Sleep Stop: 03/28/23 00:36 Last Admin: 03/04/23 20:37 Dose: 3 mg Miscellaneous (Carbohydrates For Hypoglycemia ) 15 - 30 gm PO UD PRN PRN Reason: Hypoglycemia Protocol Stop: 03/28/23 00:36 Multivitamins (Multivitamin Tab) 1 tab PO QAM [facility] Stop: 03/28/23 08:59 Last Admin: 03/05/23 08:44 Dose: 1 tab Nystatin (Nystatin Powder 15gm Btl) 1 appln EXT BID PRN PRN Reason: inflammed skin creases/folds Stop: 03/28/23 04:53 Last Admin: 02/28/23 16:54 Dose: 1 appln Oxycodone HCl (Oxycodone Hcl Ir 5 Mg Tab (Immediate Release)) 5 - 10 mg PO QID PRN PRN Reason: Pain Stop: 03/14/23 20:58 Last Admin: 03/03/23 20:38 Dose: 10 mg Pantoprazole Sodium (Pantoprazole 40 Mg Tab) 40 mg PO BID [facility] Stop: 03/28/23 08:59 Last Admin: 03/05/23 08:44 Dose: 40 mg Ropinirole HCl (Ropinirole Hcl 1 Mg Tablet) 1 mg PO HS [facility] Stop: 03/28/23 20:59 Last Admin: 03/04/23 21:08 Dose: 1 mg Tizanidine HCl (Tizanidine Hcl 4 Mg Tablet) 4 mg PO TID PRN PRN Reason: spasm Stop: 03/28/23 13:59 Last Admin: 03/05/23 08:44 Dose: 4 mg Umeclidinium/Vilanterol (Umeclidinium/Vilanterol 62.5/25mcg 7 Puffs/Inhaler) 1 puffs INH QAM [facility] Stop: 03/28/23 08:59 Last Admin: 03/05/23 08:45 Dose: 1 puffs
[2023-03-05] MEDS: oxyCODONE HCL IR 5 MG TAB (IMMEDIATE RELEASE) PO PRN (14:22)
[2023-03-05] MEDS: rOPINIRole HCL 1 MG TABLET PO SCH (20:05)
[2023-03-05] MEDS: ATORVASTATIN 40 MG TAB PO SCH (20:05)
[2023-03-05] MEDS: LATANOPROST 0.005% OP SOLN 2.5 ML BTL OP SCH (20:05)
[2023-03-05] MEDS: MELATONIN 3 MG TAB PO PRN (21:09)
[2023-03-06] MEDS: ACETAMINOPHEN 500 MG TAB PO SCH ×2 (00:53→09:00)
[2023-03-06] MEDS: INSULIN ASPART PER UNIT CHARGE SC SCH ×2 (08:59→12:20)
[2023-03-06] MEDS: DIVALPROEX DELAY RELEASE 500 MG TAB PO SCH (09:00)
[2023-03-06] MEDS: CYANOCOBALAMIN (B-12) 100 MCG TABLET PO SCH (09:01)
[2023-03-06] MEDS: PANTOprazole 40 MG TAB PO SCH (09:01)
[2023-03-06] MEDS: CETIRIZINE HCL 10 MG TABLET PO SCH (09:01)
[2023-03-06] MEDS: ADVANCED PROBIOTIC 1250 MG CAPSULE PO SCH (09:01)
[2023-03-06] MEDS: FLUTICASONE FUROATE 100MCG 14 PUFFS/INHALER INH SCH (09:01)
[2023-03-06] MEDS: ASPIRIN 81 MG ECTAB PO SCH (09:01)
[2023-03-06] MEDS: FLUTICASONE PROPIONATE NA SPR 16 GM BTL SCH (09:01)
[2023-03-06] MEDS: MULTIVITAMIN TAB PO SCH (09:01)
[2023-03-06] MEDS: UMECLIDINIUM/VILANTEROL 62.5/25MCG 7 PUFFS/INHALER INH SCH (09:02)
[2023-03-06] MEDS: ENOXAPARIN INJ 40 MG/0.4 ML SYR SQ SCH (09:02)
[2023-03-06] MEDS: LANTUS PER UNIT CHARGE SQ SCH (09:05)
--- NOTE | 2023-03-06 12:52 | Discharge Summary ---
Discharge Summary Date of Service March 06, 2023 Admission HPI Per Admitting Provider History obtained from patient and records. Medical history significant for chronic diastolic heart failure (55 to 60%, TTE 2018), hx nonocclusive CAD, hypertension, COPD, possible MIKE, DM 2 insulin requiring, history ataxia, myoclonic epilepsy as per records, possible RLS, GERD, right breast cancer status post surgery/radiotherapy, anxiety/mood disorder, overactive bladder as per records, past tobacco abuse. Last confinement April 2018 for chest pain. Nonocclusive CAD in cardiac catheterization. Patient diagnosed to have ataxia since 2019 as per patient. Unable to get out of bed on her own due to progressive balance difficulties and shuffling gait. Patient noted UTI symptoms few days ago. Patient started on Bactrim with note of quinolone resistant E. coli on outpatient urine testing. No fever, no chills. Some nausea/dry heaving symptoms, poor appetite. No chest pain, no SOB, no abdominal pain. Temperature noted to be 105 at patient's home. Patient has taken Bactrim before without issues. Patient fell at home today trying to get up from her portable toilet. No head trauma, no LOC. Achy hip pain. Noted to be hypoxemic and SBP noted to be 90s upon EMS arrival. Patient brought to the ER for evaluation. 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 Recently completed course of Bactrim for UTI. Denies chest pain or shortness of breath. Seen by neurology; Dr. Del Castillo in December 20. No clear cause for ataxia; had recommended MRI brain but patient has significant claustrophobia. He recommended restarting Requip 0.5mg twice daily for restless leg syndrome. She takes Requip at night but does not believe she has restless leg syndrome at this time. Holding off on additional Requip. MRI this admission reveals small vessel ischemic/degenerative changes with cerebral and cerebellar atrophy. Results were explained to the patient and her by phone. Zanaflex added for spasms. PT OT recs SNF Knee xrays reveal no evidence of fracture bilaterally. Pain improved, cont ibuprofen/ice and supportive care. Abnormal CT chest CTA chest reviewed; no PE. Cardiomegaly. 1 cm indeterminate sclerotic lesion within right side of the T4 vertebral body. Follow-up nonemergent bone scan recommended. BPPV -has history of this per chart review -Trial of meclizine was not successful -PT performed Gail at least twice yesterday with improvement this morning Chronic conditions: DM 2 insulin requiring, well-controlled as of hemoglobin A1c of 5.6 last December 2021. Hold home metformin. Worsening ambulatory dysfunction secondary to illness, history ataxia as per records possible RLS, unimproved on current ropinirole regimen Right breast cancer status post surgery/radiotherapy, currently in remission anxiety/mood disorder, stable past tobacco abuse Full code DVT prophylaxis Lovenox Dispo-to SNF [facility] Hospitalist Discharge Exam CONSTITUTIONAL: morbid obesity, vitals as above, generally well-appearing, NAD EYES: normal conjunctivae, no scleral icterus ENT: external ear and nose normal, MMM NECK: trachea midline RESPIRATORY: clear to auscultation bilaterally, no crackles, rales or wheezes, normal respiratory effort CARDIOVASCULAR: regular rate and rhythm, S1 and 2 heard without murmurs, gallops or rubs, no JVD, no peripheral edema CHEST: inspection of chest was normal GASTROINTESTINAL: soft, protubernt, nontender, ND, no guarding MUSCULOSKELETAL: Limited range of motion in the lower extremity specific knee with flexion extension of the knees bilaterally. The patient is obese which makes physical exam and movements somewhat difficult. She is also an uncontrolled pain. Dorsiflexion plantarflexion intact bilaterally. Head is normocephalic and atraumatic, neck supple SKIN: warm and dry NEUROLOGIC: CN 2-12 grossly intact, no sensory deficit, normal cognition, normal speech, no tremor PSYCHIATRIC: alert cooperative and oriented to person, place and time. Euthymic mood, makes good eye contact, language grossly intact, recent and remote memory grossly intact. Updated Medication List Medication Instructions Recorded Confirmed Type Lactobacillus acidophilus 10 mg PO BID 11/03/20 02/25/23 History acetaminophen 325 mg tablet 325 mg PO Q6 PRN Pain 11/03/20 02/25/23 History albuterol sulfate 90 mcg/actuation 2 puff inhalation Q4H PRN 11/03/20 02/25/23 History aerosol inhaler Shortness Of Breath atorvastatin 40 mg tablet 40 mg PO HS 11/03/20 02/25/23 History cetirizine 10 mg tablet (Zyrtec) 10 mg PO QAM 11/03/20 02/25/23 History fluticasone fur. 100 mcg-umeclid 1 inh inhalation QAM 11/03/20 02/25/23 History 62.5 mcg-vilant 25 mcg inhalat.powder (Trelegy Ellipta) fluticasone propionate 50 1 spray intranasal QAM 11/03/20 02/25/23 History mcg/actuation nasal spray,suspension ketoconazole 2 % topical cream 1 applic topical BID PRN Rash 11/03/20 02/25/23 History lorazepam 1 mg tablet 0.5 - 1 mg PO TID PRN Anxiety 11/03/20 02/25/23 History multivitamin 1 tab PO QAM 11/03/20 02/25/23 History nystatin 100,000 unit/gram topical 1 applic topical BID PRN Rash 11/03/20 02/25/23 History cream omeprazole 20 mg capsule,delayed 20 mg PO BID 11/03/20 02/25/23 History release oxybutynin chloride 10 mg 10 mg PO QAM 11/03/20 02/25/23 History tablet,extended release 24 hr albuterol sulfate 2.5 mg/3 mL 2.5 mg inhalation DIRECTED PRN 02/25/23 02/25/23 History (0.083 %) solution for nebulization Shortness Of Breath Or Wheezing aspirin 81 mg tablet,delayed 81 mg PO DAILY 02/25/23 02/25/23 History release cholecalciferol (vitamin D3) 25 25 mcg PO DAILY 02/25/23 02/25/23 History mcg (1,000 unit) capsule (Vitamin D3) cyanocobalamin (vitamin B-12) 100 100 mcg PO DAILY 02/25/23 02/25/23 History mcg tablet (Vitamin B-12) divalproex 500 mg tablet,delayed 500 mg PO BID 02/25/23 02/25/23 History release furosemide 20 mg tablet (Lasix) 20 mg PO QAM PRN EDEMA/WT GAIN 02/25/23 02/25/23 History insulin human U-100 NPH-regulr See Rx Instructions .Route .COMPLEX 02/25/23 02/25/23 History 70-30 mix 100 unit/mL subcutaneous susp (Novolin 70/30 U-100 Insulin) latanoprost 0.005 % eye drops 1 drp ophthalmic (eye) QPM 02/25/23 02/25/23 History metformin 500 mg tablet,extended 1,000 mg PO BID 02/25/23 02/25/23 History release 24 hr ropinirole 1 mg tablet 1 mg PO HS 02/25/23 02/25/23 History sulfamethoxazole 800 1 tab PO BID 02/25/23 02/25/23 History mg-trimethoprim 160 mg tablet Hospital Stay Data Consultations 02/25/23 21:22 ED Decision to Admit Stat Diagnostic Imagining Performed 02/25/23 18:24 CT abd pelvis IV con only Stat CT angio chest PE protocol Stat CT cervical spine wo con Stat CT head/brain wo con Stat 02/28/23 08:00 MRI Brain [MR brain wo/w con] Routine Pending Results Patient Have Any Pending Studies at Discharge: No Discharge Instructions Given to Patient (Per Discharging Provider) Please take all medications as instructed on discharge as below. Please continue taking scheduled Tylenol 1000 mg every 8 hours and ibuprofen as needed for pain. Please consider continuation of outpatient physical therapy after rehab and follow-up with your primary care doctor within 1 week of discharge from rehab. If your knee pain persists you may need additional imaging such as an MRI in the next couple of weeks. Please discuss further with your primary care doctor on follow-up. It was a pleasure taking care of you! Please call if you have any questions or problems. You can reach a [facility] hospitalist on duty at [facility] 24 hours a day by calling [phone]. Take care of yourself. Florence Nunes, DO [facility]
--- NOTE | 2023-03-08 05:19 | Electrocardiogram Report ---
Test Reason : Blood Pressure : / mmHG Vent. Rate : 046 BPM Atrial Rate : 046 BPM P-R Int : 176 ms QRS Dur : 098 ms QT Int : 496 ms P-R-T Axes : 042 004 024 degrees QTc Int : 434 ms Sinus bradycardia Otherwise normal ECG When compared with ECG of 25-FEB-2023 17:47, Vent. rate has decreased BY 46 BPM Nonspecific T wave abnormality, improved in Anterior leads Confirmed by Kaleb De Jesus ([id number]) on 03/08/2023 5:19:18 AM Referred By: Renny Abdi Confirmed By:Kaleb De Jesus
== END 2023-03-06 14:24 | DRG 92 ==
LOC: ED 17:35 → SUATTDRO 23:04 → 2N 23:04 → 3N 03-03 22:37

== ENCOUNTER 2023-03-28 11:16 | Inpatient (IN) ==
--- NOTE | 2023-03-28 11:56 | Emergency Department Note ---
Impression & Plan Hypoxia, Polypharmacy, Hypokalemia ED Provider Note NAME: ESTRELLITA MCCALLUM AGE: 73 SEX: F : 1950 ARRIVES VIA: Ambulance INFORMANT: Patient ED PROVIDER(S): Ruddy Bolton DO CHIEF COMPLAINT: Weakness and fall HPI: Patient is a 73-year-old female who took a double dose of her Ativan and gabapentin both last night and this morning. She fell this morning as she notes her legs were very weak. She denies hitting her head or neck. She complaining of left knee and vyas pain. No pain in the foot. No tingling or numbness. No headache or change in vision. No chest pain or shortness of breath. No nausea vomiting or diarrhea. He called her PCP who referred her in and also wanted a urine done. Denies any blood thinners. Does not wear oxygen normally. PAST MEDICAL HISTORY:See Below PAST SURGICAL HISTORY:See Below FAMILY HISTORY:See Below SOCIAL HISTORY:See Below HOME MEDICATIONS:See Below ALLERGIES:See Below VITALS:See Below PHYSICAL EXAMINATION: GENERAL: alert, disheveled, sleepy, awakens to voice on nasal cannula HEAD: normal cephalic, atraumatic EYE EXAM: normal conjunctiva, PERRL and EOM's grossly intact OROPHARYNX: no exudate, no erythema, lips, buccal mucosa, and tongue normal and mucous membranes are moist EARS: TMs clear b/l NECK: supple, no nuchal rigidity, no adenopathy, non-tender CHEST: stable to compression anteriorly and posteriorly LUNGS: clear to auscultation. Normal chest wall mechanics HEART: no murmurs, S1 normal and S2 normal ABDOMEN: abdomen soft, non-tender, normo-active bowel sounds, no masses, no rebound or guarding. PELVIS: stable to compression anteriorly and posteriorly BACK: Back is symmetrical on inspection and there is no deformity, no midline tenderness, no CVA tenderness. UPPER EXTREMITIES: full active and passive range of motion of all joints without tenderness to palpation LOWER EXTREMITIES: full active and passive range of motion of all joints without tenderness to palpation with the exception of tenderness over the left knee and vyas on palpation. Skin is intact. No bruising or swelling. No tenderness about the ankle or foot. DPs 2 out of 4. NEURO EXAM: Normal sensorium, cranial nerves II-XII grossly intact, normal speech, no gross weakness of arms, no gross weakness of legs. GCS: 15. MEDICAL DECISION MAKING: Patient is a 73-year-old female who presents ER for above-stated complaint. IV was established blood work was obtained. Labs showed no significant leukocytosis or anemia. BMP with mild hypokalemia 3.4. LFTs bilirubin was unremarkable. Lipase was normal. UA was pending upon admission. COVID was negative. Valproic was 41. She was oriented to person place and time. She is very tired. She was on nasal cannula. Chest x-ray was clean. X-rays of the tib-fib and knee showed no acute fracture. Do favor that the hypoxia is likely secondary to her being sedated from the additional medications that she took. [facility] and [facility]. Again she declined any chest pain or shortness of breath. Patient remained on 2 L nasal cannula throughout her stay in the ER. Triage Nursing notes reviewed. Limited review of prior medical records performed Vital Signs: reviewed and remarkable for hypoxic Differential diagnosis: Differential diagnoses includes but is not limited to pneumonia, bronchitis, COPD/Asthma exacerbation, pneumothorax, pulmonary embolism, congestive heart failure, acute coronary syndrome ER treatment provided: See below Diagnostics interpreted by me include EKG and cardiac monitoring as listed below: -Cardiac Monitoring: An order was placed for continuous cardiac monitoring. The monitor shows a rate of 80 with sinus rhythm. -ECG: Sinus rhythm rate 83 Normal axis No PVCs QTc 430 -Laboratory studies:Interpreted by me as stated above in MDM and shown below. Imaging studies: Xrays: As interpreted by me: Portable AP upright 1 view of the chest shows no focal infiltrate X-ray of the knee and tib-fib show no acute fracture CTs show: none Consultation(s): As described in MDM Procedures:none Critical Care: I have personally spent 32 minutes of critical care time in the direct management of this patient. This includes bedside care, interpretation of diagnostic studies, and testing, discussion with consultants, patient, and family members, and other required patient management activities. This 32 minutes is in excess of all separately billable procedures. Past Med/Surg History Medical History Anxiety Ataxia uses cane BPPV (benign paroxysmal positional vertigo) CAD (coronary artery disease) Cardiac cath 04/2018-mild nonobstructive CAD Chronic obstructive pulmonary disease inhaler daily/prn Diabetes mellitus, type 2 History of melanoma on back History of right breast cancer (~1997) diagnosed 1997--chemo/radiation/sx History of sepsis Hyperlipidemia Hypertension Morbid obesity with BMI of 45.0-49.9, adult Myoclonic jerking Osteoarthritis Surgical History History of appendectomy History of bilateral cataract extraction History of cardiac cath (~04/2018) @ [facility]--no stents placed History of cholecystectomy History of colonoscopy History of lumpectomy of right breast History of Mohs micrographic surgery for skin cancer History of right breast biopsy malignant History of tooth extraction Family History Brother Family hx of colon cancer Father Family hx of colon cancer Sister Family history of diabetes mellitus Family history of reaction to anesthesia "spike in BP and vomits" Daughter Family history of reaction to anesthesia nausea/vomiting/migraine Mother Family history of diabetes mellitus Brother Family history of diabetes mellitus Family hx colonic polyps Social History Smoking Status: Former smoker Second Hand Exposure: No; Do You Dip or Chew Tobacco: No; Hx Alcohol Use: No Hx Substance Use: No Preferred Language: Danish Communication Ability: Effective 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: No Beliefs That Will Affect Care: None Current Living Situation: Spouse Current Living Situation Comment: lives at home with Feels Safe at Home: Yes Assistive Devices: Bedside Commode and Wheelchair Allergies Allergies Allergy/AdvReac Type Severity Reaction Status Date / Time dog dander Allergy Intermediate SNEEZING, Verified 02/25/23 21:38 ITCHING EYES & THROAT grass pollen-perennial rye, Allergy Intermediate SNEEZING, Verified 02/25/23 21:38 standar ITCHING EYES & THROAT Home Meds Home Medications Medication Instructions Recorded Confirmed Lactobacillus acidophilus 10 mg PO BID 11/03/20 03/28/23 acetaminophen 325 mg tablet 325 mg PO Q6 PRN Pain 11/03/20 03/28/23 albuterol sulfate 90 mcg/actuation 2 puff inhalation Q4H PRN 11/03/20 03/28/23 aerosol inhaler Shortness Of Breath atorvastatin 40 mg tablet 40 mg PO HS 11/03/20 03/28/23 cetirizine 10 mg tablet (Zyrtec) 10 mg PO QAM 11/03/20 03/28/23 fluticasone fur. 100 mcg-umeclid 1 inh inhalation QAM 11/03/20 03/28/23 62.5 mcg-vilant 25 mcg inhalat.powder (Trelegy Ellipta) fluticasone propionate 50 1 spray intranasal QAM 11/03/20 03/28/23 mcg/actuation nasal spray,suspension ketoconazole 2 % topical cream 1 applic topical BID PRN Rash 11/03/20 03/28/23 lorazepam 1 mg tablet 0.5 - 1 mg PO TID PRN Anxiety 11/03/20 03/28/23 multivitamin 1 tab PO QAM 11/03/20 03/28/23 nystatin 100,000 unit/gram topical 1 applic topical BID PRN Rash 11/03/20 03/28/23 cream omeprazole 20 mg capsule,delayed 20 mg PO BID 11/03/20 03/28/23 release oxybutynin chloride 10 mg 10 mg PO QAM 11/03/20 03/28/23 tablet,extended release 24 hr albuterol sulfate 2.5 mg/3 mL 2.5 mg inhalation DIRECTED PRN 02/25/23 03/28/23 (0.083 %) solution for nebulization Shortness Of Breath Or Wheezing aspirin 81 mg tablet,delayed 81 mg PO DAILY 02/25/23 03/28/23 release cholecalciferol (vitamin D3) 25 25 mcg PO DAILY 02/25/23 03/28/23 mcg (1,000 unit) capsule (Vitamin D3) cyanocobalamin (vitamin B-12) 100 100 mcg PO DAILY 02/25/23 03/28/23 mcg tablet (Vitamin B-12) divalproex 500 mg tablet,delayed 500 mg PO BID 02/25/23 03/28/23 release furosemide 20 mg tablet (Lasix) 20 mg PO QAM PRN EDEMA/WT GAIN 02/25/23 03/28/23 insulin human U-100 NPH-regulr See Rx Instructions .Route .COMPLEX 02/25/23 03/28/23 70-30 mix 100 unit/mL subcutaneous susp (Novolin 70/30 U-100 Insulin) latanoprost 0.005 % eye drops 1 drp ophthalmic (eye) QPM 02/25/23 03/28/23 metformin 500 mg tablet,extended 1,000 mg PO BID 02/25/23 03/28/23 release 24 hr ropinirole 1 mg tablet 1 mg PO HS 02/25/23 03/28/23 gabapentin 300 mg capsule 300 mg PO HS 03/28/23 03/28/23 Results & Data (ED) Vital Signs Vital Signs - 24 hr 03/28/23 11:26 03/28/23 11:26 03/28/23 12:21 Temperature 37.0 C Temperature Source Oral Pulse Rate 83 81 Pulse Rate [Right Finger] Pulse Rhythm Regular Pulse Rhythm [Right Finger] Pulse Strength Normal Pulse Strength [Right Finger] Respiratory Rate 18 Respiratory Effort / Characteristics Non-Labored Respiratory Depth Normal Respiratory Pattern Regular Blood Pressure 142/80 H Blood Pressure [Right Arm] Blood Pressure Mean 100 Blood Pressure Mean [Right Arm] Blood Pressure Position Lying Blood Pressure Position [Right Arm] Pulse Oximetry 94 88 L Oxygen Delivery Method Room Air Nasal Cannula Oxygen Flow Rate 0 Sepsis Recent Fever Within 48 Hours No Sepsis New/Unexplained Change in Mental Status Yes Sepsis Action Taken by Nursing No Action Required Oxygen Flow Rate - Titration 2 Pulse Oximetry Post Tiitration 94 03/28/23 13:00 Temperature Temperature Source Pulse Rate Pulse Rate [Right Finger] 78 Pulse Rhythm Pulse Rhythm [Right Finger] Regular Pulse Strength Pulse Strength [Right Finger] Normal Respiratory Rate 22 Respiratory Effort / Characteristics Non-Labored Respiratory Depth Normal Respiratory Pattern Regular Blood Pressure Blood Pressure [Right Arm] 129/69 Blood Pressure Mean Blood Pressure Mean [Right Arm] 89 Blood Pressure Position Blood Pressure Position [Right Arm] Lying Pulse Oximetry 94 Oxygen Delivery Method Room Air Oxygen Flow Rate Sepsis Recent Fever Within 48 Hours Sepsis New/Unexplained Change in Mental Status Sepsis Action Taken by Nursing Oxygen Flow Rate - Titration Pulse Oximetry Post Tiitration Laboratory Data 03/28/23 11:30 03/28/23 11:30 Lab Results 03/28/23 03/28/23 03/28/23 Range/Units 11:30 11:30 11:30 WBC 8.78 (4.8-10.8) K/ul RBC 4.88 (4.20-5.40) M/uL Hgb 12.8 (12.0-16.0) g/dl Hct 40.0 (37.0-47.0) % MCV 82.0 (80.0-100.0) fL MCH 26.2 (25.0-34.0) pg MCHC 32.0 (32.0-36.0) g/dL RDW Std Deviation 46.6 H (36.4-46.3) fL RDW Coeff of [place] 15.6 H (11.5-14.5) % Plt Count 186 (130-400) K/uL MPV 9.8 (9.4-12.4) fL Immature Gran % (Auto) 0.7 % Neut % (Auto) 72.3 % Lymph % (Auto) 15.1 % [place] % (Auto) 9.9 % Eos % (Auto) 1.4 % Baso % (Auto) 0.6 % Neut # (Auto) 6.35 (1.40-6.50) K/uL Lymph # (Auto) 1.33 (1.2-3.4) K/uL [place] # (Auto) 0.87 H (0.11-0.59) K/uL Eos # (Auto) 0.12 (0-0.50) K/uL Baso # (Auto) 0.05 (0-0.2) K/uL Immature Gran # (Auto) 0.06 (0.01-0.20) K/uL Sodium 140 (136-145) mmol/L Potassium 3.4 L (3.5-5.1) mmol/L Chloride 104 (98-107) mmol/L Carbon Dioxide 28 (21-32) mmol/L Anion Gap 8 (3-11) BUN 9 (6-23) mg/dl Creatinine 0.56 L (0.6-1.2) mg/dl Est Cr Clr Drug Dosing 105.2 ml/min Est GFR ( Amer) 108.0 ml/min Est GFR (Non-Af Amer) 93.2 ml/min BUN/Creatinine Ratio 16.1 (10-20) Glucose 114 H (70-99(Fasting)) mg/dl Calcium 8.8 (8.6-10.3) mg/dl Total Bilirubin 0.6 (0.2-1.0) mg/dl AST 14 (13-39) U/L ALT 8 (7-52) U/L Alkaline Phosphatase 70 (34-104) U/L Troponin I High Sens < 2.3 (0-14) pg/ml Total Protein 6.2 (6.0-8.3) gm/dl Albumin 3.4 (3.4-5.0) gm/dl Globulin 2.8 (2.5-4.0) gm/dl Albumin/Globulin Ratio 1.2 (0.9-2) Lipase 10 L (11-82) U/L Salicylates < 3.0 L (3.0-30) mg/dl Acetaminophen 3 L (10-30) ug/ml SARS-CoV-2, RNA, NAAT (NEGATIVE) 03/28/23 Range/Units 12:22 WBC (4.8-10.8) K/ul RBC (4.20-5.40) M/uL Hgb (12.0-16.0) g/dl Hct (37.0-47.0) % MCV (80.0-100.0) fL MCH (25.0-34.0) pg MCHC (32.0-36.0) g/dL RDW Std Deviation (36.4-46.3) fL RDW Coeff of [place] (11.5-14.5) % Plt Count (130-400) K/uL MPV (9.4-12.4) fL Immature Gran % (Auto) % Neut % (Auto) % Lymph % (Auto) % [place] % (Auto) % Eos % (Auto) % Baso % (Auto) % Neut # (Auto) (1.40-6.50) K/uL Lymph # (Auto) (1.2-3.4) K/uL [place] # (Auto) (0.11-0.59) K/uL Eos # (Auto) (0-0.50) K/uL Baso # (Auto) (0-0.2) K/uL Immature Gran # (Auto) (0.01-0.20) K/uL Sodium (136-145) mmol/L Potassium (3.5-5.1) mmol/L Chloride (98-107) mmol/L Carbon Dioxide (21-32) mmol/L Anion Gap (3-11) BUN (6-23) mg/dl Creatinine (0.6-1.2) mg/dl Est Cr Clr Drug Dosing ml/min Est GFR ( Amer) ml/min Est GFR (Non-Af Amer) ml/min BUN/Creatinine Ratio (10-20) Glucose (70-99(Fasting)) mg/dl Calcium (8.6-10.3) mg/dl Total Bilirubin (0.2-1.0) mg/dl AST (13-39) U/L ALT (7-52) U/L Alkaline Phosphatase (34-104) U/L Troponin I High Sens (0-14) pg/ml Total Protein (6.0-8.3) gm/dl Albumin (3.4-5.0) gm/dl Globulin (2.5-4.0) gm/dl Albumin/Globulin Ratio (0.9-2) Lipase (11-82) U/L Salicylates (3.0-30) mg/dl Acetaminophen (10-30) ug/ml SARS-CoV-2, RNA, NAAT NEGATIVE (NEGATIVE) Administered Medications Discontinued Medications Potassium Chloride (Potassium Chloride Crtab 20 Meq Tabcr) 40 meq PO NOW STA Stop: 03/28/23 13:45 Last Admin: 03/28/23 14:18 Dose: 40 meq Documented By: Imaging Data Radiologist's Impression: Knee X-Ray 03/28/23 11:52 XR knee LT 3V CLINICAL HISTORY: Left knee pain following fall. COMPARISON: Left knee radiographs February 28, 2023. FINDINGS: Alignment of the left knee is anatomic. There is no acute fracture. No joint effusion is present. There is moderate medial compartment joint space narrowing. There is osteophytosis of the left knee. IMPRESSION: 1. No acute fracture. No left knee joint effusion. 2. Mild to moderate left knee osteoarthritis. ACT 112: Negative or not required by law. Electronically signed by: Huber Manuel M.D. 03/28/2023 12:50 PM Tibia/Fibula X-Ray 03/28/23 11:52 LEFT TIBIA AND FIBULA 2 VIEWS CLINICAL HISTORY: Left leg pain. Fall. FINDINGS: AP and crosstable lateral views of the left tibia and fibula are correlated with the radiographs of the left knee dated 02/28/2023. The skeletal structures are osteopenic. There is no radiographic evidence of left tibial or fibular fracture. The knee and ankle joints are grossly maintained. Soft tissue edema is present in the cast. IMPRESSION: Soft tissue swelling with no acute bony abnormality identified. Electronically signed by: Chriss Shirley M.D. 03/28/2023 12:50 PM Chest X-Ray 03/28/23 11:53 XR chest 1V portable CLINICAL HISTORY: hypoxic TECHNIQUE: Single frontal radiograph of the chest was obtained. Comparison: Comparison is made to chest radiograph 02/25/2023 FINDINGS: No lines and tubes are seen. The cardiomediastinal silhouette is stable. Lungs are underinflated but clear. No evidence of pleural effusion or pneumothorax. IMPRESSION: No acute abnormalities and in particular no radiographic evidence of pneumonia. ACT 112: Negative or not required by law. Electronically signed by: Pranav Anguiano M.D. 03/28/2023 12:49 PM Discharge Plan Visit Data Chief Complaint: Confusion Stated Complaint: AMS ED Provider: Ruddy Bolton Discharge Problem: Hypoxia, Polypharmacy, Hypokalemia Discharge Instructions Interventions: ED Discharge Assessment Last Done: 03/28/23 14:48
[2023-03-28 12:33] LABS: Basophils # (auto) 0.05 K/uL (0-0.2); Basophils % (auto) 0.6 %; Eosinophils # (auto) 0.12 K/uL (0-0.50); Eosinophils % (auto) 1.4 %; Hemoglobin 12.8 g/dl (12.0-16.0); Immature Granulocytes # (auto) 0.06 K/uL (0.01-0.20); Immature Granulocytes % (auto) 0.7 %; Lymphocytes # (auto) 1.33 K/uL (1.2-3.4); Lymphocytes % (auto) 15.1 %; Mean Corpuscular Hemoglobin 26.2 pg (25.0-34.0); Mean Platelet Volume 9.8 fL (9.4-12.4); Monocytes # (auto) 0.87 K/uL (0.11-0.59); Monocytes % (auto) 9.9 %; Neutrophils # (auto) 6.35 K/uL (1.40-6.50); Neutrophils % (auto) 72.3 %; Platelet Count 186 K/uL (130-400); RDW Coefficient of Variation 15.6 % (11.5-14.5); RDW Standard Deviation 46.6 fL (36.4-46.3); Red Blood Count 4.88 M/uL (4.20-5.40); White Blood Count 8.78 K/ul (4.8-10.8)
[2023-03-28 12:34] LABS: Alanine Aminotransferase 8 U/L (7-52); Albumin Globulin Ratio 1.2 (0.9-2); Albumin Level 3.4 gm/dl (3.4-5.0); Alkaline Phosphatase 70 U/L (34-104); Anion Gap 8 (3-11); Aspartate Aminotransferase 14 U/L (13-39); BUN Creatinine Ratio 16.1 (10-20); Bilirubin,Total 0.6 mg/dl (0.2-1.0); Blood Urea Nitrogen 9 mg/dl (6-23); Calcium 8.8 mg/dl (8.6-10.3); Carbon Dioxide 28 mmol/L (21-32); Chloride 104 mmol/L (98-107); Creatinine Clr Calc Pharmacy 105.2 ml/min; Est GFR (Non-African American) 93.2 ml/min; Globulin 2.8 gm/dl (2.5-4.0); Glucose 114 mg/dl (70-99(Fasting)); Lipase 10 U/L (11-82); Potassium 3.4 mmol/L (3.5-5.1); Sodium 140 mmol/L (136-145); Total Protein 6.2 gm/dl (6.0-8.3)
[2023-03-28 12:40] LABS: Troponin I High Sensitivity < 2.3 pg/ml (0-14)
--- NOTE | 2023-03-28 12:50 | XRay Report ---
XR chest 1V portable CLINICAL HISTORY: hypoxic TECHNIQUE: Single frontal radiograph of the chest was obtained. Comparison: Comparison is made to chest radiograph 02/25/2023 FINDINGS: No lines and tubes are seen. The cardiomediastinal silhouette is stable. Lungs are underinflated but clear. No evidence of pleural effusion or pneumothorax. IMPRESSION: No acute abnormalities and in particular no radiographic evidence of pneumonia. ACT 112: Negative or not required by law. Electronically signed by: Pranav Anguiano M.D. 03/28/2023 12:49 PM
--- NOTE | 2023-03-28 12:51 | XRay Report ---
XR knee LT 3V CLINICAL HISTORY: Left knee pain following fall. COMPARISON: Left knee radiographs February 28, 2023. FINDINGS: Alignment of the left knee is anatomic. There is no acute fracture. No joint effusion is p resent. There is moderate medial compartment joint space narrowing. There is osteophytosis of the lef t knee. IMPRESSION: 1. No acute fracture. No left knee joint effusion. 2. Mild to moderate left knee osteoarthritis. ACT 112: Negative or not required by law. Electronically signed by: Huber Manuel M.D. 03/28/2023 12:50 PM
--- NOTE | 2023-03-28 12:51 | XRay Report ---
LEFT TIBIA AND FIBULA 2 VIEWS CLINICAL HISTORY: Left leg pain. Fall. FINDINGS: AP and crosstable lateral views of the left tibia and fibula are correlated with the radiog raphs of the left knee dated 02/28/2023. The skeletal structures are osteopenic. There is no radiograp hic evidence of left tibial or fibular fracture. The knee and ankle joints are grossly maintained. So ft tissue edema is present in the cast. IMPRESSION: Soft tissue swelling with no acute bony abnormality identified. Electronically signed by: Chriss Shirley M.D. 03/28/2023 12:50 PM
[2023-03-28] MEDS ORDERED: POTASSIUM CHLORIDE CRTAB 20 MEQ TABCR PO STA (13:44)
[2023-03-28 13:47] LABS: Acetaminophen 3 ug/ml (10-30); Salicylate < 3.0 mg/dl (3.0-30)
--- NOTE | 2023-03-28 13:57 | History & Physical Report ---
Date of Service March 28, 2023 Assessment & Plan (1) Polypharmacy: (2) Metabolic encephalopathy: (3) Accidental overdose: (4) Ambulatory dysfunction: (5) Fall: Plan: Admit to [facility] with telemetry Patient presenting from home for generalized weakness, fall, confusion. Patient states she took double dose lorazepam and gabapentin at 9 PM and repeated at 4 AM. She took lorazepam 2 mg and gabapentin 600 mg each time. Patient states that she has received instructions to do this in the past as needed. is unaware of these instructions. Likely metabolic encephalopathy due to polypharmacy/accidental overdose. Hold sedating medications, continue to monitor PT/OT (6) UTI (urinary tract infection): Plan: UA suggestive of UTI Does not appear septic Urine culture from 02/16/2023 grew E. coli with intermediate resistance to levofloxacin. Patient treated with Bactrim at that time. Start IV ceftriaxone, follow culture (7) Hypoxia: Plan: Mildly hypoxic on room air at 88% while in the ED, likely secondary to hypoventilation from sedation from lorazepam and gabapentin Improved with 2L O2 NC, wean as able (8) Diabetes mellitus, type 2: Plan: Hgb A1c 6.0 01/2023 Typically managed with 70/30 and metformin at home Utilize NovoLog and Lantus per protocol while hospitalized (9) Ataxia: Plan: Controlled with Depakote -- will check level (10) CAD (coronary artery disease): Plan: History of nonobstructive CAD Appears stable, no reports of chest pain Continue ASA, statin (11) Morbid obesity: Plan: BMI 49.6 (12) Chronic obstructive pulmonary disease: Plan: No signs of acute exacerbation, continue home inhalers DVT PROPHYLAXIS SQ Lovenox Patient seen in collaboration with Dr. Nunes. I spent a total of 75 minutes coordinating, documenting, and providing care for this patient excluding time spent in the performance of separately billed services. This included personally reviewing all current laboratories and imaging studies, medication reconciliation, outpatient chart review, and discussion with specialists. History of Present Illness Chief Complaint: Fall, confusion Primary Care Provider: Renny Abdi MD 73-year-old female with PMH DM type II, diabetic neuropathy, dyslipidemia, COPD, nonobstructive CAD, morbid obesity, GERD, BPPV, ataxia, and other problems listed below who presents the ED for evaluation of fall and confusion. History obtained from the patient and who is the bedside and review of recent inpatient records as well as intermediate records and outpatient PCP and neurology notes. Patient recently admitted to [facility] 02/25-03/06 for fall and bilateral knee pain. Patient was discharged to [facility] for short-term rehab and returned home on 03/20. Last night, patient took double dose lorazepam and gabapentin at 9 PM -- lorazepam 2mg and gabapentin 600 mg -- and repeated the same dosing at 4 AM. Patient states that she was under the impression that she received instructions to do this as needed. This morning, patient was attempting to transfer from bed to bedside commode when her legs started to give out from under her. was able to slide her to the ground. She did not strike her head. also notes increased confusion. Urine has been foul- smelling for about the past 1 week. No fevers or chills. Patient is typically bed/chair bound and only takes a couple of steps to transfer. Patient denies chest pain and shortness of breath. No lightheadedness, dizziness, diaphoresis, syncopal events. Denies abdominal pain, nausea, vomiting, diarrhea. In the ED, patient is hemodynamically stable. She was mildly hypoxic on room air at 80%, improved to 2 L of oxygen via nasal cannula. Labs unremarkable with the exception of mild hypokalemia, K+ 3.4. CXR, left knee/tibia/fibula x-rays unremarkable. Allergies Allergy/AdvReac Type Severity Reaction Status Date / Time dog dander Allergy Intermediate SNEEZING, Verified 02/25/23 21:38 ITCHING EYES & THROAT grass pollen-perennial rye, Allergy Intermediate SNEEZING, Verified 02/25/23 21:38 standar ITCHING EYES & THROAT Home Medications Medication Instructions Recorded Confirmed Type Lactobacillus acidophilus 10 mg PO BID 11/03/20 03/28/23 History acetaminophen 325 mg tablet 325 mg PO Q6 PRN Pain 11/03/20 03/28/23 History albuterol sulfate 90 mcg/actuation 2 puff inhalation Q4H PRN 11/03/20 03/28/23 History aerosol inhaler Shortness Of Breath atorvastatin 40 mg tablet 40 mg PO HS 11/03/20 03/28/23 History cetirizine 10 mg tablet (Zyrtec) 10 mg PO QAM 11/03/20 03/28/23 History fluticasone fur. 100 mcg-umeclid 1 inh inhalation QAM 11/03/20 03/28/23 History 62.5 mcg-vilant 25 mcg inhalat.powder (Trelegy Ellipta) fluticasone propionate 50 1 spray intranasal QAM 11/03/20 03/28/23 History mcg/actuation nasal spray,suspension ketoconazole 2 % topical cream 1 applic topical BID PRN Rash 11/03/20 03/28/23 History lorazepam 1 mg tablet 0.5 - 1 mg PO TID PRN Anxiety 11/03/20 03/28/23 History multivitamin 1 tab PO QAM 11/03/20 03/28/23 History nystatin 100,000 unit/gram topical 1 applic topical BID PRN Rash 11/03/20 03/28/23 History cream omeprazole 20 mg capsule,delayed 20 mg PO BID 11/03/20 03/28/23 History release oxybutynin chloride 10 mg 10 mg PO QAM 11/03/20 03/28/23 History tablet,extended release 24 hr albuterol sulfate 2.5 mg/3 mL 2.5 mg inhalation DIRECTED PRN 02/25/23 History (0.083 %) solution for nebulization Shortness Of Breath Or Wheezing aspirin 81 mg tablet,delayed 81 mg PO DAILY 02/25/23 03/28/23 History release cholecalciferol (vitamin D3) 25 25 mcg PO DAILY 02/25/23 03/28/23 History mcg (1,000 unit) capsule (Vitamin D3) cyanocobalamin (vitamin B-12) 100 100 mcg PO DAILY 02/25/23 03/28/23 History mcg tablet (Vitamin B-12) divalproex 500 mg tablet,delayed 500 mg PO BID 02/25/23 03/28/23 History release furosemide 20 mg tablet (Lasix) 20 mg PO QAM PRN EDEMA/WT GAIN 02/25/23 03/28/23 History insulin human U-100 NPH-regulr See Rx Instructions .Route .COMPLEX 02/25/23 03/28/23 History 70-30 mix 100 unit/mL subcutaneous susp (Novolin 70/30 U-100 Insulin) latanoprost 0.005 % eye drops 1 drp ophthalmic (eye) QPM 02/25/23 03/28/23 History metformin 500 mg tablet,extended 1,000 mg PO BID 02/25/23 03/28/23 History release 24 hr ropinirole 1 mg tablet 1 mg PO HS 02/25/23 03/28/23 History gabapentin 300 mg capsule 300 mg PO HS 03/28/23 03/28/23 History Past Med/Surg History Medical History Anxiety Ataxia uses cane BPPV (benign paroxysmal positional vertigo) CAD (coronary artery disease) Cardiac cath 04/2018-mild nonobstructive CAD Chronic obstructive pulmonary disease inhaler daily/prn Diabetes mellitus, type 2 History of melanoma on back History of right breast cancer (~1997) diagnosed 1997--chemo/radiation/sx History of sepsis Hyperlipidemia Hypertension Morbid obesity with BMI of 45.0-49.9, adult Myoclonic jerking Osteoarthritis Surgical History History of appendectomy History of bilateral cataract extraction History of cardiac cath (~04/2018) @ [facility]--no stents placed History of cholecystectomy History of colonoscopy History of lumpectomy of right breast History of Mohs micrographic surgery for skin cancer History of right breast biopsy malignant History of tooth extraction Family History Brother Family hx of colon cancer Father Family hx of colon cancer Sister Family history of diabetes mellitus Family history of reaction to anesthesia "spike in BP and vomits" Daughter Family history of reaction to anesthesia nausea/vomiting/migraine Mother Family history of diabetes mellitus Brother Family history of diabetes mellitus Family hx colonic polyps Social History Smoking Status: Former smoker Second Hand Exposure: No; Do You Dip or Chew Tobacco: No; Tobacco Cessation Education Requested by Patient: No Hx Alcohol Use: No Hx Substance Use: No Preferred Language: [place] Verdean Communication Ability: Effective 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 Beliefs That Will Affect Care: None Current Living Situation: Spouse Current Living Situation Comment: lives at home with Other Information That Helps Us Care for You: No Feels Safe at Home: Yes Safety Concerns: Feels Safe At This Time Assistive Devices: Denture - Upper, Glasses and Walker Review of Systems Review of Systems: ROS per HPI, all other systems reviewed and negative Physical Exam Constitutional: WD/WN, vitals as above + obese; no acute distress Eyes: PERRL, conjunctivae normal, anicteric sclerae ENMT: external ear and nose normal, oropharynx normal Respiratory: normal respiratory effort; no respiratory distress Aus cultation: + diminished lung sounds (Bilateral bases) Cardiovascular: Rate/Rhythm: regular rate and regular rhythm Vessels: normal peripheral pulses Extremities: no edema Gastrointestinal (Abdomen): normal bowel sounds, soft, nontender, no hepatosplenomegaly Musculoskeletal: Generally weak throughout Skin: no rashes, warm and dry Neurologic: PERRL, EOMI, accommodation nl, no face palsy, no dysarthria Psychiatric: Orientation: alert, oriented to person, oriented to place (knows she is at [facility] however did not know what town) and oriented to time (able to name year and month, could not correctly state day of week) Insight: + limited insight Results & Data Results & Data Vital Signs (Past 12 Hours) Vital Signs Temp Pulse Pulse Resp BP BP Pulse Ox 03/28/23 13:00 78 22 129/69 94 03/28/23 12:21 81 03/28/23 11:26 88 L 03/28/23 11:26 37.0 C 83 18 142/80 H 94 O2 Del Method O2 Flow Rate 03/28/23 13:00 Room Air 03/28/23 12:21 03/28/23 11:26 Nasal Cannula 0 03/28/23 11:26 Room Air Laboratory Results Short CBC 03/28/23 Range/Units 11:30 WBC 8.78 (4.8-10.8) K/ul Hgb 12.8 (12.0-16.0) g/dl Hct 40.0 (37.0-47.0) % Plt Count 186 (130-400) K/uL BMP 03/28/23 11:30 Sodium 140 Potassium 3.4 L Chloride 104 Carbon Dioxide 28 BUN 9 Creatinine 0.56 L Glucose 114 H Calcium 8.8 Liver Function 03/28/23 Range/Units 11:30 Total Bilirubin 0.6 (0.2-1.0) mg/dl AST 14 (13-39) U/L ALT 8 (7-52) U/L Alkaline Phosphatase 70 (34-104) U/L Albumin 3.4 (3.4-5.0) gm/dl Diagnostic Findings Knee X-Ray 03/28/23 11:52 XR knee LT 3V CLINICAL HISTORY: Left knee pain following fall. COMPARISON: Left knee radiographs February 28, 2023. FINDINGS: Alignment of the left knee is anatomic. There is no acute fracture. No joint effusion is present. There is moderate medial compartment joint space narrowing. There is osteophytosis of the left knee. IMPRESSION: 1. No acute fracture. No left knee joint effusion. 2. Mild to moderate left knee osteoarthritis. ACT 112: Negative or not required by law. Electronically signed by: Huber Manuel M.D. 03/28/2023 12:50 PM Tibia/Fibula X-Ray 03/28/23 11:52 LEFT TIBIA AND FIBULA 2 VIEWS CLINICAL HISTORY: Left leg pain. Fall. FINDINGS: AP and crosstable lateral views of the left tibia and fibula are correlated with the radiographs of the left knee dated 02/28/2023. The skeletal structures are osteopenic. There is no radiographic evidence of left tibial or fibular fracture. The knee and ankle joints are grossly maintained. Soft tissue edema is present in the cast. IMPRESSION: Soft tissue swelling with no acute bony abnormality identified. Electronically signed by: Chriss Shirley M.D. 03/28/2023 12:50 PM Chest X-Ray 03/28/23 11:53 XR chest 1V portable CLINICAL HISTORY: hypoxic TECHNIQUE: Single frontal radiograph of the chest was obtained. Comparison: Comparison is made to chest radiograph 02/25/2023 FINDINGS: No lines and tubes are seen. The cardiomediastinal silhouette is stable. Lungs are underinflated but clear. No evidence of pleural effusion or pneumothorax. IMPRESSION: No acute abnormalities and in particular no radiographic evidence of pneumonia. ACT 112: Negative or not required by law. Electronically signed by: Pranav Anguiano M.D. 03/28/2023 12:49 PM Code Status & VTE Plan Code Status Patient is a full code as per my discussion with her. VTE Prophylaxis Plan VTE Prophylaxis will be ordered: Yes Supervising Physician Co-Signing Physician Notes I have seen and examined the patient and have discussed the case with the provider above. I agree with the assessment and plan as stated with the following exceptions. The patient is a 73 yo F who was recently hospitalized after a fall and recently completed post-acute care rehab program 2-3 days ago. She reports her legs became very weak yesterday. She endorses dysuria and urinary urgency as well as some vaginal itching. Workup today reveals UTI and she was started on Rocephin. There was a question of polypharmacy, however, the patient denies that she took too much of her medications and only took them as they were prescr ibed. On exam she is deconditioned and generally weak. She is alert and oriented and answering questions appropriately. Abdomen is soft NTND. She denies any pelvic pain or flank pain. She is not septic and CBC and chemistry are within normal limits. Mg slightly low at 1.7 and replacement started. Fall, weakness and acute metabolic encephalopathy seen earlier was possibly the result of polypharmacy in setting of a UTI. Continue antibiotics and repeat therapy evaluation. Ensure ambulation is encouraged. Des,
--- NOTE | 2023-03-28 14:25 | Electrocardiogram Report ---
Test Reason : Blood Pressure : / mmHG Vent. Rate : 083 BPM Atrial Rate : 083 BPM P-R Int : 162 ms QRS Dur : 096 ms QT Int : 366 ms P-R-T Axes : 047 -02 022 degrees QTc Int : 430 ms Normal sinus rhythm Incomplete right bundle branch block Normal ECG When compared with ECG of 06-MAR-2023 07:58, Vent. rate has increased BY 37 BPM Confirmed by Natanael Jordan ([id number]) on 03/28/2023 2:25:13 PM Referred By: Confirmed By:Natanael Jordan
[2023-03-28] MEDS ORDERED: GLUCOSE 10 TAB/TUBE PO PRN (15:21)
[2023-03-28] MEDS ORDERED: GLUCOSE 40% GEL 15 GM TUBE PO PRN (15:21)
[2023-03-28] MEDS ORDERED: ALBUTEROL 0.083% NEBU SOLN 3 ML VIAL INH PRN (15:21)
[2023-03-28] MEDS ORDERED: DEXTROSE 50% 50 ML SYRINGE IV PRN (15:21)
[2023-03-28] MEDS ORDERED: CARBOHYDRATES FOR HYPOGLYCEMIA PO PRN (15:21)
[2023-03-28] MEDS ORDERED: GLUCAGON FOR INJ 1 MG VIAL SQ PRN (15:21)
[2023-03-28] MEDS ORDERED: PHARMACY GLYCEMIC MGMT CONSULT PRN (15:21)
[2023-03-28 16:17] LABS: Appearance Urine Cloudy (Clear); Bacteria Urine Automated 1+ (Negative); Bilirubin Urine Negative (Negative); Blood Urine Trace (Negative); Color Urine Dark Yellow; Epithelial Cell Urine Auto 20-30 /lpf (0-5); Glucose Urine UA Negative (Negative); Ketones Urine 2+ (Negative); Leukocyte Esterase Urine 2+ (Negative); Nitrite Urine Negative (Negative); Protein Urine 1+ (Negative); Specific Gravity Urine 1.024 (1.000-1.030); Urobilinogen Urine Negative (Negative); WBC Urine Automated >30 /hpf (0-5)
[2023-03-28] MEDS: ACETAMINOPHEN 325 MG TAB PO PRN (16:44)
[2023-03-28 16:57] LABS: Magnesium 1.7 mg/dl (1.7-2.4)
[2023-03-28] MEDS: INSULIN ASPART PER UNIT CHARGE SC SCH ×2 (17:31→20:12)
[2023-03-28] MEDS: ENOXAPARIN INJ 40 MG/0.4 ML SYR SQ SCH (18:02)
[2023-03-28] MEDS: cefTRIAXone SODIUM 2,000 MG in DEXTROSE 5% 50 ML IV SCH (19:04)
[2023-03-28] MEDS: ATORVASTATIN 40 MG TAB PO SCH (19:28)
[2023-03-28] MEDS: ADVANCED PROBIOTIC 1250 MG CAPSULE PO SCH (19:29)
[2023-03-28] MEDS: DIVALPROEX DELAY RELEASE 500 MG TAB PO SCH (19:29)
[2023-03-28] MEDS: LATANOPROST 0.005% OP SOLN 2.5 ML BTL OP SCH (19:30)
[2023-03-28] MEDS: rOPINIRole HCL 1 MG TABLET PO SCH (19:30)
[2023-03-28] MEDS: PANTOprazole 40 MG TAB PO SCH (19:30)
[2023-03-28] MEDS ORDERED: LANTUS PER UNIT CHARGE SC SCH (21:00)
[2023-03-28] MEDS: MAGNESIUM OXIDE 400 MG TAB PO SCH (22:21)
[2023-03-29] MEDS: ACETAMINOPHEN 325 MG TAB PO PRN ×3 (01:06→14:35)
[2023-03-29] MEDS: ENOXAPARIN INJ 40 MG/0.4 ML SYR SQ SCH ×2 (04:31→16:39)
[2023-03-29 07:52] LABS: Hematocrit (blood only) 38.9 % (37.0-47.0); Hemoglobin 12.3 g/dl (12.0-16.0); Mean Corpuscular Hemoglobin 26.1 pg (25.0-34.0); Mean Corpuscular Hgb Conc 31.6 g/dL (32.0-36.0); Mean Corpuscular Volume 82.4 fL (80.0-100.0); Mean Platelet Volume 9.8 fL (9.4-12.4); Platelet Count 186 K/uL (130-400); RDW Coefficient of Variation 15.2 % (11.5-14.5); RDW Standard Deviation 45.5 fL (36.4-46.3); Red Blood Count 4.72 M/uL (4.20-5.40); White Blood Count 7.63 K/ul (4.8-10.8)
[2023-03-29 07:59] LABS: BUN Creatinine Ratio 14.9 (10-20); Calcium 8.6 mg/dl (8.6-10.3); Creatinine Clr Calc Pharmacy 122.8 ml/min; Est GFR (African American) 114.4 ml/min; Est GFR (Non-African American) 98.7 ml/min; Potassium 3.9 mmol/L (3.5-5.1)
[2023-03-29] MEDS: FLUTICASONE/VILANTEROL 100/25MCG 14 PUFFS/INHALER INH SCH (08:10)
[2023-03-29] MEDS: ADVANCED PROBIOTIC 1250 MG CAPSULE PO SCH ×2 (08:10→20:02)
[2023-03-29] MEDS: OXYBUTYNIN CHLORIDE XL 5 MG TABCR PO SCH (08:10)
[2023-03-29] MEDS: CYANOCOBALAMIN (B-12) 100 MCG TABLET PO SCH (08:10)
[2023-03-29] MEDS: UMECLIDINIUM/VILANTEROL 62.5/25MCG 7 PUFFS/INHALER INH SCH (08:10)
[2023-03-29] MEDS: PANTOprazole 40 MG TAB PO SCH ×2 (08:10→20:02)
[2023-03-29] MEDS: DIVALPROEX DELAY RELEASE 500 MG TAB PO SCH ×2 (08:10→20:02)
[2023-03-29] MEDS: ASPIRIN 81 MG ECTAB PO SCH (08:10)
[2023-03-29] MEDS: CETIRIZINE HCL 10 MG TABLET PO SCH (08:10)
[2023-03-29] MEDS: CHOLECALCIFEROL 1,000 UNITS 25 MCG TAB PO SCH (08:10)
[2023-03-29] MEDS: INSULIN ASPART PER UNIT CHARGE SC SCH ×4 (08:23→20:08)
[2023-03-29] MEDS: MAGNESIUM OXIDE 400 MG TAB PO SCH ×2 (08:54→20:02)
[2023-03-29] MEDS ORDERED: LANTUS PER UNIT CHARGE SC SCH (09:00)
--- NOTE | 2023-03-29 10:21 | Pharmacy Report ---
Pharmacy Glycemic Short Note 2 - Date of Service March 29, 2023 - Glycemic Short BSG Results (Last 24 hours): 03/28/23 03/28/23 03/28/23 11:30 16:12 19:51 Glucose 114 H POC Glucose 129 H 137 H 03/29/23 03/29/23 07:24 07:54 Glucose 106 H POC Glucose 98 OUTPATIENT ANTIDIABETIC REGIMEN: * Novolin 70/30 - 32 units SC qAM, 24 units SC qPM * Metformin 1 g PO BIDM HbA1c: 6% (02/26/23) ASSESSMENT: * PW is a 73 year old female who presented to ED on 03/28/23 for evaluation of fall and confusion * Pertinent PMH includes T2DM w/ diabetic neuropathy, dyslipidemia, COPD, and obesity * BSGs well-controlled thus far this admission. Patient's A1c suggests excellent outpatient glycemic control. Given fall risk, will be conservative with initial inpatient insulin dosing to limit risk of hypoglycemia. * Received 10 units of basal insulin last evening with fasting BSG of 98 mg/dL this morning PLAN FOR INPATIENT GLYCEMIC CONTROL: * Hold outpatient oral diabetes medications * Basal insulin * Lantus 8-10 units SC HS * Bolus insulin * NovoLog per scale ACHS or Q6hrs while NPO * Goal Range: Low 110 mg/dL - High 140 mg/dL * Correction Factor: 25 mg/dL/unit * Nutritional / Prandial insulin per carb ratio of 1 unit per 8 grams CHO consumed
--- NOTE | 2023-03-29 13:07 | Hospitalist Progress Note ---
Date of Service March 29, 2023 Assessment & Plan (1) Polypharmacy: (2) Metabolic encephalopathy: Plan Polypharmacy: Metabolic encephalopathy: Accidental overdose: Ambulatory dysfunction: Fall: Patient presenting from home for generalized weakness, fall, confusion. 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 She took lorazepam 2 mg and gabapentin 600 mg each time. Patient states that she has received instructions to do this in the past as needed. is unaware of these instructions. Likely metabolic encephalopathy due to polypharmacy/accidental overdose. Hold sedating medications, continue to monitor PT/OT, pt more aware. UTI (urinary tract infection): UA suggestive of UTI, UCx - GNB, follow final. Urine culture from 02/16/2023 grew E. coli with intermediate resistance to levofloxacin. Patient treated with Bactrim at that time. c/w IV ceftriaxone, follow culture Hypoxia: Mildly hypoxic on room air at 88% while in the ED, likely secondary to hypoventilation from sedation from lorazepam and gabapentin. Wean down O2 as tolerated. Diabetes mellitus, type 2: Hgb A1c 6.0 01/2023. Typically managed with 70/30 and metformin at home. Utilize NovoLog and Lantus per protocol while hospitalized. Ataxia: Controlled with Depakote -- will check level - low, will consult neuro for further recs on dose adjustment. Other chronic medical conditions: CAD (coronary artery disease): History of nonobstructive CAD. Appears stable, no reports of chest pain. Continue home ASA, statin Morbid obesity: BMI 49.6, counselling on healthy diet and regular exercise regimen. Chronic obstructive pulmonary disease: No signs of acute exacerbation, continue home inhalers DVT PROPHYLAXIS SQ Lovenox Dispo: PT/OT, CM to assist with DC plan, neuro consult placed for lower dapkote level/ dose adjustment. Admission and Anticipated Discharge Date Admission Date: March 28, 2023 Subjective Patient seen and examined at bedside as a follow-up of metabolic encephalopathy likely secondary to accidental overdose of Ativan, fall, ambulatory dysfunction, UTI, hypoxia secondary to hypoventilation from sedation from lorazepam and gabapentin at presentation. Patient was lying in bed, on 3 L nasal cannula oxygen, NAD, reports no new acute events overnight, reports chronic joint pain/back pain, had poor sleep overnight and would like to try melatonin, denies headache or dizziness or chest pain or cough. Patient's at bedside, updated about patient's plan of care. Physical Exam Physical Exam: GENERAL: Alert and oriented x3. NAD, on 3L NC O2. Obese Class III. Appears weak. HEENT: No pallor, no icterus. Pupils equal, round and reactive to light. Oral mucosa moist. NECK: No JVD, no neck masses. HEART: S1 and S2 heard. Regular rate and rhythm. No murmur, no gallop. RESPIRATORY SYSTEM: Normal AP diameter. No accessory muscle use. No wheezing, no crackles. diminished lung sounds. ABDOMEN: Soft, bowel sounds present, nontender, no distention. CENTRAL NERVOUS SYSTEM: No facial droop. Speech is clear. Obeys simple commands. Moves extremities. EXTREMITIES: No edema, no erythema seen. Results & Data Results & Data Vital Signs (Past 12 Hours) Vital Signs Temp Pulse Pulse Resp BP Pulse Ox O2 Del Method 03/29/23 11:43 37.0 C 75 20 117/76 94 Nasal Cannula 03/29/23 10:58 Nasal Cannula 03/29/23 07:50 37.2 C 81 18 129/73 94 Nasal Cannula 03/29/23 07:02 82 03/29/23 03:07 36.8 C 83 20 118/78 92 Room Air O2 Flow Rate 03/29/23 11:43 3 03/29/23 10:58 2 03/29/23 07:50 3 03/29/23 07:02 03/29/23 03:07
[2023-03-29] MEDS: cefTRIAXone SODIUM 2,000 MG in DEXTROSE 5% 50 ML IV SCH (17:25)
[2023-03-29] MEDS: NYSTATIN POWDER 15GM BTL EXT PRN (17:55)
[2023-03-29] MEDS: ATORVASTATIN 40 MG TAB PO SCH (20:02)
[2023-03-29] MEDS: rOPINIRole HCL 1 MG TABLET PO SCH (20:02)
[2023-03-29] MEDS: LATANOPROST 0.005% OP SOLN 2.5 ML BTL OP SCH (20:03)
[2023-03-29] MEDS: MELATONIN 3 MG TAB PO PRN (20:39)
[2023-03-29] MEDS: LANTUS PER UNIT CHARGE SC SCH (20:39)
[2023-03-30] MEDS: ENOXAPARIN INJ 40 MG/0.4 ML SYR SQ SCH ×2 (05:33→16:55)
[2023-03-30 07:49] LABS: BUN Creatinine Ratio 10.2 (10-20); Calcium 8.7 mg/dl (8.6-10.3); Creatinine Clr Calc Pharmacy 117.5 ml/min; Est GFR (African American) 112.8 ml/min; Est GFR (Non-African American) 97.3 ml/min; Phosphorus 3.6 mg/dl (2.5-4.9); Potassium 3.7 mmol/L (3.5-5.1)
[2023-03-30] MEDS: OXYBUTYNIN CHLORIDE XL 5 MG TABCR PO SCH (08:42)
[2023-03-30] MEDS: UMECLIDINIUM/VILANTEROL 62.5/25MCG 7 PUFFS/INHALER INH SCH (08:42)
[2023-03-30] MEDS: CYANOCOBALAMIN (B-12) 100 MCG TABLET PO SCH (08:42)
[2023-03-30] MEDS: PANTOprazole 40 MG TAB PO SCH ×2 (08:42→21:11)
[2023-03-30] MEDS: DIVALPROEX DELAY RELEASE 500 MG TAB PO SCH ×2 (08:42→21:05)
[2023-03-30] MEDS: MAGNESIUM OXIDE 400 MG TAB PO SCH ×2 (08:42→21:06)
[2023-03-30] MEDS: ASPIRIN 81 MG ECTAB PO SCH (08:42)
[2023-03-30] MEDS: CETIRIZINE HCL 10 MG TABLET PO SCH (08:42)
[2023-03-30] MEDS: ADVANCED PROBIOTIC 1250 MG CAPSULE PO SCH ×2 (08:42→21:05)
[2023-03-30] MEDS: CHOLECALCIFEROL 1,000 UNITS 25 MCG TAB PO SCH (08:42)
[2023-03-30] MEDS: FLUTICASONE/VILANTEROL 100/25MCG 14 PUFFS/INHALER INH SCH (08:42)
[2023-03-30] MEDS: INSULIN ASPART PER UNIT CHARGE SC SCH ×4 (08:49→21:07)
[2023-03-30] MEDS ORDERED: POLYETHYLENE (MIRALAX) 17 GM PACK PO ONE (10:32)
[2023-03-30] MEDS: DOCUSATE SODIUM 100 MG CAP PO SCH ×2 (11:03→21:06)
[2023-03-30] MEDS: DICLOFENAC SOD 1% GEL 100 GM TUBE EXT SCH ×3 (11:03→22:00)
[2023-03-30] MEDS: ACETAMINOPHEN 325 MG TAB PO PRN (14:58)
[2023-03-30] MEDS: cefTRIAXone SODIUM 2,000 MG in DEXTROSE 5% 50 ML IV SCH (16:59)
--- NOTE | 2023-03-30 18:37 | Hospitalist Progress Note ---
Date of Service March 30, 2023 Assessment & Plan (1) Polypharmacy: (2) Metabolic encephalopathy: Plan Polypharmacy: Metabolic encephalopathy: Accidental overdose: Ambulatory dysfunction: Fall: Patient presenting from home for generalized weakness, fall, confusion. 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 She took lorazepam 2 mg and gabapentin 600 mg each time. Patient states that she has received instructions to do this in the past as needed. is unaware of these instructions. Likely metabolic encephalopathy due to polypharmacy/accidental overdose. Hold sedating medications, continue to monitor PT/OT, pt more awake, back to baseline. likely will need snf/rehab. UTI (urinary tract infection): UA suggestive of UTI, UCx - GNB, follow final. Urine culture from 02/16/2023 grew E. coli with intermediate resistance to levofloxacin. Patient treated with Bactrim at that time. c/w IV ceftriaxone. Hypoxia: Mildly hypoxic on room air at 88% while in the ED, likely secondary to hypoventilation from sedation from lorazepam and gabapentin. Wean down O2 as tolerated. Diabetes mellitus, type 2: Hgb A1c 6.0 01/2023. Typically managed with 70/30 and metformin at home. Utilize NovoLog and Lantus per protocol while hospitalized. Ataxia: Controlled with Depakote -- will check level - low, d/w neuro, appropriately dosed for her myoclonic jerking. Other chronic medical conditions: CAD (coronary artery disease): History of nonobstructive CAD. Appears stable, no reports of chest pain. Continue home ASA, statin Morbid obesity: BMI 49.6, counselling on healthy diet and regular exercise regimen. Chronic obstructive pulmonary disease: No signs of acute exacerbation, continue home inhalers DVT PROPHYLAXIS SQ Lovenox Dispo: PT/OT, CM to assist with DC plan, in next 1-2 days. Admission and Anticipated Discharge Date Admission Date: March 28, 2023 Subjective Patient seen and examined at bedside as a follow-up of metabolic encephalopathy likely secondary to accidental overdose of Ativan, fall, ambulatory dysfunction, UTI, hypoxia secondary to hypoventilation from sedation from lorazepam and gabapentin at presentation. Patient was lying in bed, on 3 L nasal cannula oxygen, NAD, reports ongoing chronic back pain, will add toradol and diclofenac gel/heat pad, reports chronic joint pain/back pain, had better sleep overnight, denies headache or dizziness or chest pain or cough. Patient's at bedside, updated about patient's plan of care. Pt reports not moving bowels in few days, will add laxatives. Physical Exam Physical Exam: GENERAL: Alert and oriented x3. NAD, on 3L NC O2. Obese Class III. Appears weak. HEENT: No pallor, no icterus. Pupils equal, round and reactive to light. Oral mucosa moist. NECK: No JVD, no neck masses. HEART: S1 and S2 heard. Regular rate and rhythm. No murmur, no gallop. RESPIRATORY SYSTEM: Normal AP diameter. No accessory muscle use. No wheezing, no crackles. diminished lung sounds. ABDOMEN: Soft, bowel sounds present, nontender, no distention. CENTRAL NERVOUS SYSTEM: No facial droop. Speech is clear. Obeys simple commands. Moves extremities. EXTREMITIES: No edema, no erythema seen. Results & Data Results & Data Vital Signs (Past 12 Hours) Vital Signs Temp Pulse Pulse Resp BP BP Pulse Ox 03/30/23 16:27 94 H 03/30/23 15:53 36.9 C 76 18 114/71 92 03/30/23 10:52 37.1 C 88 18 167/78 H 92 03/30/23 08:30 03/30/23 07:46 36.8 C 84 18 166/77 H 92 03/30/23 07:24 84 O2 Del Method 03/30/23 16:27 03/30/23 15:53 Room Air 03/30/23 10:52 Room Air 03/30/23 08:30 Room Air 03/30/23 07:46 Room Air 03/30/23 07:24
[2023-03-30] MEDS ORDERED: LACTATED RINGER'S 1,000 ML IV ONE (19:49)
[2023-03-30] MEDS: ATORVASTATIN 40 MG TAB PO SCH (21:04)
[2023-03-30] MEDS: LANTUS PER UNIT CHARGE SC SCH (21:07)
[2023-03-30] MEDS: LATANOPROST 0.005% OP SOLN 2.5 ML BTL OP SCH (21:10)
[2023-03-30] MEDS: rOPINIRole HCL 1 MG TABLET PO SCH (21:11)
[2023-03-31] MEDS: ENOXAPARIN INJ 40 MG/0.4 ML SYR SQ SCH ×2 (05:36→17:08)
[2023-03-31] MEDS: DICLOFENAC SOD 1% GEL 100 GM TUBE EXT SCH ×4 (05:36→21:27)
[2023-03-31] MEDS: CETIRIZINE HCL 10 MG TABLET PO SCH (08:23)
[2023-03-31] MEDS: MAGNESIUM OXIDE 400 MG TAB PO SCH ×2 (08:23→21:28)
[2023-03-31] MEDS: DIVALPROEX DELAY RELEASE 500 MG TAB PO SCH ×2 (08:23→21:29)
[2023-03-31] MEDS: ADVANCED PROBIOTIC 1250 MG CAPSULE PO SCH ×2 (08:23→21:29)
[2023-03-31] MEDS: DOCUSATE SODIUM 100 MG CAP PO SCH ×2 (08:23→21:29)
[2023-03-31] MEDS: ASPIRIN 81 MG ECTAB PO SCH (08:24)
[2023-03-31] MEDS: FLUTICASONE FUROATE 100MCG 14 PUFFS/INHALER INH SCH (08:24)
[2023-03-31] MEDS: CHOLECALCIFEROL 1,000 UNITS 25 MCG TAB PO SCH (08:24)
[2023-03-31] MEDS: UMECLIDINIUM/VILANTEROL 62.5/25MCG 7 PUFFS/INHALER INH SCH (08:24)
[2023-03-31] MEDS: OXYBUTYNIN CHLORIDE XL 5 MG TABCR PO SCH (08:24)
[2023-03-31] MEDS: PANTOprazole 40 MG TAB PO SCH ×2 (08:24→21:28)
[2023-03-31] MEDS: CYANOCOBALAMIN (B-12) 100 MCG TABLET PO SCH (08:24)
[2023-03-31] MEDS: INSULIN ASPART PER UNIT CHARGE SC SCH ×4 (08:27→21:31)
--- NOTE | 2023-03-31 12:31 | Pharmacy Report ---
Pharmacy Glycemic Short Note 2 - Date of Service March 31, 2023 - Glycemic Short BSG Results (Last 24 hours): 03/30/23 03/30/23 03/31/23 16:07 20:17 07:54 POC Glucose 139 H 149 H 113 H 03/31/23 11:41 POC Glucose 119 H OUTPATIENT ANTIDIABETIC REGIMEN: * Novolin 70/30 - 32 units SC qAM, 24 units SC qPM * Metformin 1 g PO BIDM HbA1c: 6% (02/26/23) ASSESSMENT: 03/31/23: * BSGs remain very well-controlled, ranging 123-149 mg/dL yesterday w/ fasting BSG of 113 mg/dL this morning * Received 25 units of insulin yesterday (10 units of basal and 15 units of prandial/correctional bolus) * Do not anticipate any changes to glycemic regimen today 03/29/23: * PW is a 73 year old female who presented to ED on 03/28/23 for evaluation of fall and confusion * Pertinent PMH includes T2DM w/ diabetic neuropathy, dyslipidemia, COPD, and obesity * BSGs well-controlled thus far this admission. Patient's A1c suggests excellent outpatient glycemic control. Given fall risk, will be conservative with initial inpatient insulin dosing to limit risk of hypoglycemia. * Received 10 units of basal insulin last evening with fasting BSG of 98 mg/dL this morning PLAN FOR INPATIENT GLYCEMIC CONTROL: * Hold outpatient oral diabetes medications * Basal insulin * Lantus 10 units SC HS * Bolus insulin * NovoLog per scale ACHS or Q6hrs while NPO * Goal Range: Low 110 mg/dL - High 140 mg/dL * Correction Factor: 25 mg/dL/unit * Nutritional / Prandial insulin per carb ratio of 1 unit per 8 grams CHO consumed
--- NOTE | 2023-03-31 14:37 | Hospitalist Progress Note ---
Date of Service March 31, 2023 Assessment & Plan (1) Polypharmacy: (2) Metabolic encephalopathy: Plan Polypharmacy: Metabolic encephalopathy: Accidental overdose: Ambulatory dysfunction: Fall: Patient presenting from home for generalized weakness, fall, confusion. 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 She took lorazepam 2 mg and gabapentin 600 mg each time. Patient states that she has received instructions to do this in the past as needed. is unaware of these instructions. Likely metabolic encephalopathy due to polypharmacy/accidental overdose. Hold sedating medications, continue to monitor PT/OT, pt awake, back to baseline. likely will need snf/rehab. UTI (urinary tract infection): UA suggestive of UTI, UCx - E coli Urine culture from 02/16/2023 grew E. coli with intermediate resistance to levofloxacin. Patient treated with Bactrim at that time. c/w IV ceftriaxone. Hypoxia: Mildly hypoxic on room air at 88% while in the ED, likely secondary to hypoventilation from sedation from lorazepam and gabapentin. currently on RA, saturating well. Diabetes mellitus, type 2: Hgb A1c 6.0 01/2023. Typically managed with 70/30 and metformin at home. Utilize NovoLog and Lantus per protocol while hospitalized. Ataxia: Controlled with Depakote -- will check level - low, d/w neuro, appropriately dosed for her myoclonic jerking. Other chronic medical conditions: CAD (coronary artery disease): History of nonobstructive CAD. Appears stable, no reports of chest pain. Continue home ASA, statin Morbid obesity: BMI 49.6, counselling on healthy diet and regular exercise regimen. Chronic obstructive pulmonary disease: No signs of acute exacerbation, continue home inhalers DVT PROPHYLAXIS SQ Lovenox Dispo: PT/OT, CM to assist with DC plan, stable for dc to rehab. med/surg. Admission and Anticipated Discharge Date Admission Date: March 30, 2023 Subjective Patient seen and examined at bedside as a follow-up of metabolic encephalopathy likely secondary to accidental overdose of Ativan, fall, ambulatory dysfunction, UTI, hypoxia secondary to hypoventilation from sedation from lorazepam and gabapentin at presentation. Patient was lying in bed, on RA, NAD, reports ongoing chronic back pain - improving symptoms with dicofenac gel, reports chronic joint pain/back pain, had better sleep overnight, denies headache or dizziness or chest pain or cough. PPt reports not moving bowels in few days, c/w laxatives. Per RN pt is eating good. Physical Exam Physical Exam: GENERAL: Alert and oriented x3. NAD, on RA. Obese Class III. Appears weak. HEENT: No pallor, no icterus. Pupils equal, round and reactive to light. Oral mucosa moist. NECK: No JVD, no neck masses. HEART: S1 and S2 heard. Regular rate and rhythm. No murmur, no gallop. RESPIRATORY SYSTEM: Normal AP diameter. No accessory muscle use. No wheezing, no crackles. diminished lung sounds. ABDOMEN: Soft, bowel sounds present, nontender, no distention. CENTRAL NERVOUS SYSTEM: No facial droop. Speech is clear. Obeys simple commands. Moves extremities. EXTREMITIES: No edema, no erythema seen. Results & Data Results & Data Vital Signs (Past 12 Hours) Vital Signs Temp Pulse Pulse Resp BP Pulse Ox O2 Del Method 03/31/23 12:33 36.7 C 80 20 154/76 H 95 Room Air 03/31/23 08:15 Room Air 03/31/23 08:29 36.6 C 68 18 120/75 95 Room Air 03/31/23 07:05 65 03/31/23 03:52 37 C 70 16 107/63 92 Room Air
[2023-03-31] MEDS: cefTRIAXone SODIUM 2,000 MG in DEXTROSE 5% 50 ML IV SCH (17:12)
[2023-03-31] MEDS: rOPINIRole HCL 1 MG TABLET PO SCH (21:28)
[2023-03-31] MEDS: LANTUS PER UNIT CHARGE SC SCH (21:30)
[2023-03-31] MEDS: ATORVASTATIN 40 MG TAB PO SCH (21:30)
[2023-03-31] MEDS: LATANOPROST 0.005% OP SOLN 2.5 ML BTL OP SCH (21:33)
[2023-04-01] MEDS: ENOXAPARIN INJ 40 MG/0.4 ML SYR SQ SCH ×2 (04:30→17:10)
[2023-04-01] MEDS: DICLOFENAC SOD 1% GEL 100 GM TUBE EXT SCH ×4 (04:30→21:20)
[2023-04-01 06:40] LABS: Hematocrit (blood only) 38.3 % (37.0-47.0); Hemoglobin 12.4 g/dl (12.0-16.0); Mean Corpuscular Hemoglobin 26.4 pg (25.0-34.0); Mean Corpuscular Hgb Conc 32.4 g/dL (32.0-36.0); Mean Corpuscular Volume 81.5 fL (80.0-100.0); Mean Platelet Volume 9.1 fL (9.4-12.4); Platelet Count 268 K/uL (130-400); RDW Coefficient of Variation 15.3 % (11.5-14.5); RDW Standard Deviation 45.8 fL (36.4-46.3); White Blood Count 5.76 K/ul (4.8-10.8)
[2023-04-01 07:04] LABS: BUN Creatinine Ratio 11.8 (10-20); Calcium 8.6 mg/dl (8.6-10.3); Creatinine Clr Calc Pharmacy 112.7 ml/min; Est GFR (African American) 111.3 ml/min; Est GFR (Non-African American) 96.1 ml/min; Phosphorus 3.9 mg/dl (2.5-4.9); Potassium 3.9 mmol/L (3.5-5.1)
[2023-04-01] MEDS: CHOLECALCIFEROL 1,000 UNITS 25 MCG TAB PO SCH (09:02)
[2023-04-01] MEDS: ASPIRIN 81 MG ECTAB PO SCH (09:02)
[2023-04-01] MEDS: CETIRIZINE HCL 10 MG TABLET PO SCH (09:02)
[2023-04-01] MEDS: OXYBUTYNIN CHLORIDE XL 5 MG TABCR PO SCH (09:02)
[2023-04-01] MEDS: CYANOCOBALAMIN (B-12) 100 MCG TABLET PO SCH (09:02)
[2023-04-01] MEDS: PANTOprazole 40 MG TAB PO SCH ×2 (09:03→19:43)
[2023-04-01] MEDS: FLUTICASONE FUROATE 100MCG 14 PUFFS/INHALER INH SCH (09:03)
[2023-04-01] MEDS: DOCUSATE SODIUM 100 MG CAP PO SCH ×2 (09:03→19:43)
[2023-04-01] MEDS: ADVANCED PROBIOTIC 1250 MG CAPSULE PO SCH ×2 (09:03→19:42)
[2023-04-01] MEDS: UMECLIDINIUM/VILANTEROL 62.5/25MCG 7 PUFFS/INHALER INH SCH (09:03)
[2023-04-01] MEDS: MAGNESIUM OXIDE 400 MG TAB PO SCH ×2 (09:03→19:44)
[2023-04-01] MEDS: DIVALPROEX DELAY RELEASE 500 MG TAB PO SCH ×2 (09:03→19:44)
[2023-04-01] MEDS: INSULIN ASPART PER UNIT CHARGE SC SCH ×4 (09:06→21:18)
[2023-04-01] MEDS: KETOROLAC TROMETHAMINE 15 MG/ML VIAL IV PRN (09:16)
[2023-04-01] MEDS: ACETAMINOPHEN 325 MG TAB PO PRN (13:25)
--- NOTE | 2023-04-01 15:42 | Hospitalist Progress Note ---
Date of Service April 01, 2023 Assessment & Plan (1) Polypharmacy: (2) Metabolic encephalopathy: Plan Polypharmacy: Metabolic encephalopathy: Accidental overdose: Ambulatory dysfunction: Fall: Patient presenting from home for generalized weakness, fall, confusion. 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 She took lorazepam 2 mg and gabapentin 600 mg each time. Patient states that she has received instructions to do this in the past as needed. is unaware of these instructions. Likely metabolic encephalopathy due to polypharmacy/accidental overdose. Hold sedating medications, continue to monitor -- will resume home gabapentin at this time. PT/OT, pt awake, back to baseline. likely will need snf/rehab. UTI (urinary tract infection): UA suggestive of UTI, UCx - E coli Urine culture from 02/16/2023 grew E. coli with intermediate resistance to levofloxacin. Patient treated with Bactrim at that time. c/w IV ceftriaxone. Will complete atb course today. Hypoxia: Mildly hypoxic on room air at 88% while in the ED, likely secondary to hypoventilation from sedation from lorazepam and gabapentin. currently on RA, saturating well. Diabetes mellitus, type 2: Hgb A1c 6.0 01/2023. Typically managed with 70/30 and metformin at home. Utilize NovoLog and Lantus per protocol while hospitalized. Ataxia: Controlled with Depakote -- will check level - low, d/w neuro, appropriately dosed for her myoclonic jerking. Other chronic medical conditions: CAD (coronary artery disease): History of nonobstructive CAD. Appears stable, no reports of chest pain. Continue home ASA, statin Morbid obesity: BMI 49.6, counselling on healthy diet and regular exercise regimen. Chronic obstructive pulmonary disease: No signs of acute exacerbation, continue home inhalers DVT PROPHYLAXIS SQ Lovenox Dispo: PT/OT, CM to assist with DC plan, stable for dc to rehab. med/surg. Admission and Anticipated Discharge Date Admission Date: March 30, 2023 Subjective Patient seen and examined at bedside as a follow-up of metabolic encephalopathy likely secondary to accidental overdose of Ativan, fall, ambulatory dysfunction, UTI, hypoxia secondary to hypoventilation from sedation from lorazepam and gabapentin at presentation. Patient was lying in bed, on RA, NAD, reports ongoing chronic back pain - improving symptoms with dicofenac gel and prn ketorolac, reports chronic joint pain/back pain, had better sleep overnight, denies headache or dizziness or chest pain or cough. PPt moved bm yesterday, c/w laxatives. Per RN pt is eating good. Will resume home gabapentin at this time. Physical Exam Physical Exam: GENERAL: Alert and oriented x3. NAD, on RA. Obese Class III. Appears weak. HEENT: No pallor, no icterus. Pupils equal, round and reactive to light. Oral mucosa moist. NECK: No JVD, no neck masses. HEART: S1 and S2 heard. Regular rate and rhythm. No murmur, no gallop. RESPIRATORY SYSTEM: Normal AP diameter. No accessory muscle use. No wheezing, no crackles. diminished lung sounds. ABDOMEN: Soft, bowel sounds present, nontender, no distention. CENTRAL NERVOUS SYSTEM: No facial droop. Speech is clear. Obeys simple commands. Moves extremities. EXTREMITIES: No edema, no erythema seen. Results & Data Results & Data Vital Signs (Past 12 Hours) Vital Signs Temp Pulse Resp BP Pulse Ox O2 Del Method 04/01/23 09:00 Room Air 04/01/23 05:30 Room Air 04/01/23 05:41 36.9 C 67 14 125/74 93 Room Air
[2023-04-01] MEDS: cefTRIAXone SODIUM 2,000 MG in DEXTROSE 5% 50 ML IV SCH (17:06)
[2023-04-01] MEDS: MELATONIN 3 MG TAB PO PRN (19:40)
[2023-04-01] MEDS: rOPINIRole HCL 1 MG TABLET PO SCH (19:42)
[2023-04-01] MEDS: GABAPENTIN 300 MG CAP PO SCH (19:42)
[2023-04-01] MEDS: ATORVASTATIN 40 MG TAB PO SCH (19:43)
[2023-04-01] MEDS: LATANOPROST 0.005% OP SOLN 2.5 ML BTL OP SCH (19:45)
[2023-04-01] MEDS: LANTUS PER UNIT CHARGE SC SCH (21:18)
[2023-04-02] MEDS: ENOXAPARIN INJ 40 MG/0.4 ML SYR SQ SCH ×2 (04:02→17:58)
[2023-04-02] MEDS: DICLOFENAC SOD 1% GEL 100 GM TUBE EXT SCH ×4 (04:02→20:40)
[2023-04-02] MEDS: ACETAMINOPHEN 325 MG TAB PO PRN (07:27)
[2023-04-02] MEDS: OXYBUTYNIN CHLORIDE XL 5 MG TABCR PO SCH (08:57)
[2023-04-02] MEDS: CETIRIZINE HCL 10 MG TABLET PO SCH (08:57)
[2023-04-02] MEDS: ADVANCED PROBIOTIC 1250 MG CAPSULE PO SCH ×2 (08:57→20:42)
[2023-04-02] MEDS: DOCUSATE SODIUM 100 MG CAP PO SCH ×2 (08:57→20:44)
[2023-04-02] MEDS: CYANOCOBALAMIN (B-12) 100 MCG TABLET PO SCH (08:57)
[2023-04-02] MEDS: MAGNESIUM OXIDE 400 MG TAB PO SCH ×2 (08:57→20:42)
[2023-04-02] MEDS: ASPIRIN 81 MG ECTAB PO SCH (08:57)
[2023-04-02] MEDS: UMECLIDINIUM/VILANTEROL 62.5/25MCG 7 PUFFS/INHALER INH SCH (08:57)
[2023-04-02] MEDS: CHOLECALCIFEROL 1,000 UNITS 25 MCG TAB PO SCH (08:57)
[2023-04-02] MEDS: DIVALPROEX DELAY RELEASE 500 MG TAB PO SCH ×2 (08:57→20:41)
[2023-04-02] MEDS: PANTOprazole 40 MG TAB PO SCH ×2 (08:57→20:41)
[2023-04-02] MEDS: FLUTICASONE FUROATE 100MCG 14 PUFFS/INHALER INH SCH (08:58)
[2023-04-02] MEDS: INSULIN ASPART PER UNIT CHARGE SC SCH ×4 (08:59→20:49)
[2023-04-02] MEDS ORDERED: LORazepam 0.5 MG TAB PO PRN (09:24)
--- NOTE | 2023-04-02 15:33 | Hospitalist Progress Note ---
Date of Service April 02, 2023 Assessment & Plan (1) Polypharmacy: (2) Metabolic encephalopathy: Plan Polypharmacy: Metabolic encephalopathy: Accidental overdose: Ambulatory dysfunction: Fall: Patient presenting from home for generalized weakness, fall, confusion. 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 She took lorazepam 2 mg and gabapentin 600 mg each time. Patient states that she has received instructions to do this in the past as needed. is unaware of these instructions. Likely metabolic encephalopathy due to polypharmacy/accidental overdose. Hold sedating medications, continue to monitor -- will resume home gabapentin at this time. Prn ativan at low dose resumed for anxiety PT/OT, pt awake, back to baseline. likely will need snf/rehab. UTI (urinary tract infection): UA suggestive of UTI, UCx - E coli Urine culture from 02/16/2023 grew E. coli with intermediate resistance to levofloxacin. Patient treated with Bactrim at that time. s/p atb course in hosp. Hypoxia: Mildly hypoxic on room air at 88% while in the ED, likely secondary to hypoventilation from sedation from lorazepam and gabapentin. currently on RA, saturating well. Diabetes mellitus, type 2: Hgb A1c 6.0 01/2023. Typically managed with 70/30 and metformin at home. Utilize NovoLog and Lantus per protocol while hospitalized. Ataxia: Controlled with Depakote -- will check level - low, d/w neuro, appropriately dosed for her myoclonic jerking. Other chronic medical conditions: CAD (coronary artery disease): History of nonobstructive CAD. Appears stable, no reports of chest pain. Continue home ASA, statin Morbid obesity: BMI 49.6, counselling on healthy diet and regular exercise regimen. Chronic obstructive pulmonary disease: No signs of acute exacerbation, continue home inhalers DVT PROPHYLAXIS SQ Lovenox Dispo: PT/OT, CM to assist with DC plan, stable for dc to rehab. med/surg. Admission and Anticipated Discharge Date Admission Date: March 30, 2023 Subjective Patient seen and examined at bedside as a follow-up of metabolic encephalopathy likely secondary to accidental overdose of Ativan, fall, ambulatory dysfunction, UTI, hypoxia secondary to hypoventilation from sedation from lorazepam and gabapentin at presentation. Patient was lying in bed, on RA, NAD, reports ongoing chronic back pain - improving symptoms with dicofenac gel and prn ketorolac, reports chronic joint pain/back pain, had better sleep overnight, denies headache or dizziness or chest pain or cough. PPt moved bm 2 d ago, c/w laxatives. Per RN pt is eating good. Will resume home gabapentin and low dose ativan prn anxiety at this time. Closely monitor. Physical Exam Physical Exam: GENERAL: Alert and oriented x3. NAD, on RA. Obese Class III. Appears weak. HEENT: No pallor, no icterus. Pupils equal, round and reactive to light. Oral mucosa moist. NECK: No JVD, no neck masses. HEART: S1 and S2 heard. Regular rate and rhythm. No murmur, no gallop. RESPIRATORY SYSTEM: Normal AP diameter. No accessory muscle use. No wheezing, no crackles. diminished lung sounds. ABDOMEN: Soft, bowel sounds present, nontender, no distention. CENTRAL NERVOUS SYSTEM: No facial droop. Speech is clear. Obeys simple commands. Moves extremities. EXTREMITIES: No edema, no erythema seen. Results & Data Results & Data Vital Signs (Past 12 Hours) Vital Signs Temp Pulse Resp BP Pulse Ox O2 Del Method 04/02/23 15:06 36.4 C L 78 16 131/75 94 Room Air 04/02/23 07:35 Room Air 04/02/23 07:20 36.7 C 68 16 126/72 93 Room Air
[2023-04-02] MEDS: NYSTATIN SUSP 500,000 U/5 ML UDC PO SCH ×2 (18:28→20:48)
[2023-04-02] MEDS: NYSTATIN POWDER 15GM BTL EXT PRN (20:39)
[2023-04-02] MEDS: LATANOPROST 0.005% OP SOLN 2.5 ML BTL OP SCH (20:40)
[2023-04-02] MEDS: GABAPENTIN 300 MG CAP PO SCH (20:42)
[2023-04-02] MEDS: ATORVASTATIN 40 MG TAB PO SCH (20:42)
[2023-04-02] MEDS: rOPINIRole HCL 1 MG TABLET PO SCH (20:42)
[2023-04-02] MEDS: MELATONIN 3 MG TAB PO PRN (20:48)
[2023-04-02] MEDS: LANTUS PER UNIT CHARGE SC SCH (20:48)
[2023-04-03] MEDS: ENOXAPARIN INJ 40 MG/0.4 ML SYR SQ SCH ×2 (05:16→16:52)
[2023-04-03] MEDS: DICLOFENAC SOD 1% GEL 100 GM TUBE EXT SCH ×4 (05:17→20:26)
--- NOTE | 2023-04-03 08:25 | Pharmacy Report ---
Pharmacy Glycemic Short Note 2 - Date of Service April 03, 2023 - Glycemic Short BSG Results (Last 24 hours): 04/02/23 04/02/23 04/02/23 11:57 17:08 20:34 POC Glucose 153 H 204 H 118 H 04/03/23 08:18 POC Glucose 106 H OUTPATIENT ANTIDIABETIC REGIMEN: * Novolin 70/30 - 32 units SC qAM, 24 units SC qPM * Metformin 1 g PO BIDM HbA1c: 6% (02/26/23) ASSESSMENT: 04/03/23: * BSGs have remained reasonably well-controlled over past 48 hours (one bsg > 200 mg/dL, no clear reason as to why) * Fasting BSG of 106 mg/dL this morning * Anticipating discharge soon * No changes anticipated to glycemic regimen 03/31/23: * BSGs remain very well-controlled, ranging 123-149 mg/dL yesterday w/ fasting BSG of 113 mg/dL this morning * Received 25 units of insulin yesterday (10 units of basal and 15 units of prandial/correctional bolus) * Do not anticipate any changes to glycemic regimen today 03/29/23: * PW is a 73 year old female who presented to ED on 03/28/23 for evaluation of fall and confusion * Pertinent PMH includes T2DM w/ diabetic neuropathy, dyslipidemia, COPD, and obesity * BSGs well-controlled thus far this admission. Patient's A1c suggests excellent outpatient glycemic control. Given fall risk, will be conservative with initial inpatient insulin dosing to limit risk of hypoglycemia. * Received 10 units of basal insulin last evening with fasting BSG of 98 mg/dL this morning PLAN FOR INPATIENT GLYCEMIC CONTROL: * Hold outpatient oral diabetes medications * Basal insulin * Lantus 9 units SC HS * Bolus insulin * NovoLog per scale ACHS or Q6hrs while NPO * Goal Range: Low 110 mg/dL - High 140 mg/dL * Correction Factor: 25 mg/dL/unit * Nutritional / Prandial insulin per carb ratio of 1 unit per 8 grams CHO consumed
[2023-04-03] MEDS: NYSTATIN POWDER 15GM BTL EXT PRN ×2 (08:30→20:27)
[2023-04-03] MEDS: INSULIN ASPART PER UNIT CHARGE SC SCH ×4 (09:34→20:56)
[2023-04-03] MEDS: NYSTATIN SUSP 500,000 U/5 ML UDC PO SCH ×4 (09:35→20:27)
[2023-04-03] MEDS: OXYBUTYNIN CHLORIDE XL 5 MG TABCR PO SCH (09:36)
[2023-04-03] MEDS: ASPIRIN 81 MG ECTAB PO SCH (09:36)
[2023-04-03] MEDS: CETIRIZINE HCL 10 MG TABLET PO SCH (09:36)
[2023-04-03] MEDS: PANTOprazole 40 MG TAB PO SCH ×2 (09:36→20:28)
[2023-04-03] MEDS: MAGNESIUM OXIDE 400 MG TAB PO SCH ×2 (09:36→20:28)
[2023-04-03] MEDS: MULTIVITAMIN TAB PO SCH (09:36)
[2023-04-03] MEDS: CHOLECALCIFEROL 1,000 UNITS 25 MCG TAB PO SCH (09:36)
[2023-04-03] MEDS: ADVANCED PROBIOTIC 1250 MG CAPSULE PO SCH ×2 (09:36→20:29)
[2023-04-03] MEDS: DIVALPROEX DELAY RELEASE 500 MG TAB PO SCH ×2 (09:36→20:29)
[2023-04-03] MEDS: CYANOCOBALAMIN (B-12) 100 MCG TABLET PO SCH (09:36)
[2023-04-03] MEDS: FLUTICASONE FUROATE 100MCG 14 PUFFS/INHALER INH SCH (09:37)
[2023-04-03] MEDS: UMECLIDINIUM/VILANTEROL 62.5/25MCG 7 PUFFS/INHALER INH SCH (09:37)
[2023-04-03] MEDS: DOCUSATE SODIUM 100 MG CAP PO SCH ×2 (09:51→20:32)
[2023-04-03] MEDS: KETOROLAC TROMETHAMINE 15 MG/ML VIAL IV PRN (16:51)
--- NOTE | 2023-04-03 17:51 | Hospitalist Progress Note ---
Date of Service April 03, 2023 Assessment & Plan (1) Polypharmacy: (2) Metabolic encephalopathy: Plan Polypharmacy: Metabolic encephalopathy: Accidental overdose: Ambulatory dysfunction: Fall: Patient presenting from home for generalized weakness, fall, confusion. 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 She took lorazepam 2 mg and gabapentin 600 mg each time. Patient states that she has received instructions to do this in the past as needed. is unaware of these instructions. Likely metabolic encephalopathy due to polypharmacy/accidental overdose. Hold sedating medications, continue to monitor -- c/w home gabapentin at this time. Prn ativan at low dose resumed for anxiety. Pt tolerating well. PT/OT, pt awake, back to baseline. likely will need snf/rehab. UTI (urinary tract infection): UA suggestive of UTI, UCx - E coli Urine culture from 02/16/2023 grew E. coli with intermediate resistance to levofloxacin. Patient treated with Bactrim at that time. s/p atb course in hosp. Hypoxia: Mildly hypoxic on room air at 88% while in the ED, likely secondary to hypoventilation from sedation from lorazepam and gabapentin. currently on RA, saturating well. Diabetes mellitus, type 2: Hgb A1c 6.0 01/2023. Typically managed with 70/30 and metformin at home. Utilize NovoLog and Lantus per protocol while hospitalized. Ataxia: Controlled with Depakote -- will check level - low, d/w neuro, appropriately dosed for her myoclonic jerking. Other chronic medical conditions: CAD (coronary artery disease): History of nonobstructive CAD. Appears stable, no reports of chest pain. Continue home ASA, statin Morbid obesity: BMI 49.6, counselling on healthy diet and regular exercise regimen. Chronic obstructive pulmonary disease: No signs of acute exacerbation, continue home inhalers DVT PROPHYLAXIS SQ Lovenox Dispo: PT/OT, CM to assist with DC plan, stable for dc to rehab. med/surg. Admission and Anticipated Discharge Date Admission Date: March 30, 2023 Subjective Patient seen and examined at bedside as a follow-up of metabolic encephalopathy likely secondary to accidental overdose of Ativan, fall, ambulatory dysfunction, UTI, hypoxia secondary to hypoventilation from sedation from lorazepam and gabapentin at presentation. Patient was lying in bed, on RA, NAD, reports ongoing chronic back pain - improving symptoms with dicofenac gel and prn ketorolac, reports chronic joint pain/back pain, sleeping better overnight, denies headache or dizziness or chest pain or cough. Pt moved bm yesterday, c/w laxatives. Physical Exam Physical Exam: GENERAL: Alert and oriented x3. NAD, on RA. Obese Class III. Appears weak. HEENT: No pallor, no icterus. Pupils equal, round and reactive to light. Oral mucosa moist. NECK: No JVD, no neck masses. HEART: S1 and S2 heard. Regular rate and rhythm. No murmur, no gallop. RESPIRATORY SYSTEM: Normal AP diameter. No accessory muscle use. No wheezing, no crackles. diminished lung sounds. ABDOMEN: Soft, bowel sounds present, nontender, no distention. CENTRAL NERVOUS SYSTEM: No facial droop. Speech is clear. Obeys simple commands. Moves extremities. EXTREMITIES: No edema, no erythema seen. Results & Data Results & Data Vital Signs (Past 12 Hours) Vital Signs Temp Pulse Resp BP Pulse Ox O2 Del Method 04/03/23 15:17 37.2 C 74 17 121/78 94 Room Air 04/03/23 08:30 Room Air 04/03/23 07:52 37.1 C 76 17 167/99 H 92 Room Air
[2023-04-03] MEDS: LATANOPROST 0.005% OP SOLN 2.5 ML BTL OP SCH (20:27)
[2023-04-03] MEDS: rOPINIRole HCL 1 MG TABLET PO SCH (20:28)
[2023-04-03] MEDS: GABAPENTIN 300 MG CAP PO SCH (20:28)
[2023-04-03] MEDS: ATORVASTATIN 40 MG TAB PO SCH (20:28)
[2023-04-03] MEDS: MELATONIN 3 MG TAB PO PRN (20:32)
[2023-04-03] MEDS: LANTUS PER UNIT CHARGE SC SCH (20:55)
[2023-04-04] MEDS: ENOXAPARIN INJ 40 MG/0.4 ML SYR SQ SCH ×2 (05:00→17:24)
[2023-04-04] MEDS: DICLOFENAC SOD 1% GEL 100 GM TUBE EXT SCH ×5 (05:01→21:05)
[2023-04-04 07:31] LABS: Creatinine Clr Calc Pharmacy 97.4 ml/min; Est GFR (African American) 106.1 ml/min; Est GFR (Non-African American) 91.6 ml/min
[2023-04-04] MEDS: PANTOprazole 40 MG TAB PO SCH ×2 (08:24→21:03)
[2023-04-04] MEDS: MAGNESIUM OXIDE 400 MG TAB PO SCH ×2 (08:24→21:02)
[2023-04-04] MEDS: DIVALPROEX DELAY RELEASE 500 MG TAB PO SCH ×2 (08:24→21:04)
[2023-04-04] MEDS: ADVANCED PROBIOTIC 1250 MG CAPSULE PO SCH ×2 (08:24→21:04)
[2023-04-04] MEDS: FLUTICASONE FUROATE 100MCG 14 PUFFS/INHALER INH SCH (08:25)
[2023-04-04] MEDS: NYSTATIN SUSP 500,000 U/5 ML UDC PO SCH ×4 (08:25→21:02)
[2023-04-04] MEDS: ASPIRIN 81 MG ECTAB PO SCH (08:25)
[2023-04-04] MEDS: MULTIVITAMIN TAB PO SCH (08:25)
[2023-04-04] MEDS: CHOLECALCIFEROL 1,000 UNITS 25 MCG TAB PO SCH (08:26)
[2023-04-04] MEDS: CYANOCOBALAMIN (B-12) 100 MCG TABLET PO SCH (08:26)
[2023-04-04] MEDS: CETIRIZINE HCL 10 MG TABLET PO SCH (08:26)
[2023-04-04] MEDS: UMECLIDINIUM/VILANTEROL 62.5/25MCG 7 PUFFS/INHALER INH SCH (08:27)
[2023-04-04] MEDS: OXYBUTYNIN CHLORIDE XL 5 MG TABCR PO SCH (08:27)
[2023-04-04] MEDS: DOCUSATE SODIUM 100 MG CAP PO SCH ×2 (08:32→21:09)
[2023-04-04] MEDS: INSULIN ASPART PER UNIT CHARGE SC SCH ×4 (08:32→21:01)
--- NOTE | 2023-04-04 14:06 | Pharmacy Report ---
Pharmacy Glycemic Short Note 2 - Date of Service April 04, 2023 - Glycemic Short BSG Results (Last 24 hours): 04/03/23 04/03/23 04/04/23 16:59 20:40 08:12 POC Glucose 121 H 148 H 98 04/04/23 12:09 POC Glucose 144 H OUTPATIENT ANTIDIABETIC REGIMEN: * Novolin 70/30 - 32 units SC qAM, 24 units SC qPM * Metformin 1 g PO BIDM * HbA1c: 6% (02/26/23) ASSESSMENT: 04/04: * Received 24 units of insulin yesterday, 9 units basal + 15 units bolus. BSGs ranging 106 - 148 mg/dL. * Fasting continues to trend down, 98 mg/dL this AM. Will decrease basal slightly this evening. 04/03: * BSGs have remained reasonably well-controlled over past 48 hours (one bsg > 200 mg/dL, no clear reason as to why) * Fasting BSG of 106 mg/dL this morning * Anticipating discharge soon * No changes anticipated to glycemic regimen 03/31: * BSGs remain very well-controlled, ranging 123-149 mg/dL yesterday w/ fasting BSG of 113 mg/dL this morning * Received 25 units of insulin yesterday (10 units of basal and 15 units of prandial/correctional bolus) * Do not anticipate any changes to glycemic regimen today 03/29: * PW is a 73 year old female who presented to ED on 03/28/23 for evaluation of fall and confusion * Pertinent PMH includes T2DM w/ diabetic neuropathy, dyslipidemia, COPD, and obesity * BSGs well-controlled thus far this admission. Patient's A1c suggests excellent outpatient glycemic control. Given fall risk, will be conservative with initial inpatient insulin dosing to limit risk of hypoglycemia. * Received 10 units of basal insulin last evening with fasting BSG of 98 mg/dL this morning PLAN FOR INPATIENT GLYCEMIC CONTROL: * Hold outpatient oral diabetes medications * Basal insulin * Lantus 8 units SC HS * Bolus insulin * NovoLog per scale ACHS or Q6hrs while NPO * Goal Range: Low 110 mg/dL - High 140 mg/dL * Correction Factor: 25 mg/dL/unit * Nutritional / Prandial insulin per carb ratio of 1 unit per 8 grams CHO consumed
--- NOTE | 2023-04-04 16:17 | Hospitalist Progress Note ---
Date of Service April 04, 2023 Assessment & Plan (1) Polypharmacy: (2) Metabolic encephalopathy: Plan Polypharmacy: Metabolic encephalopathy: Accidental overdose: Ambulatory dysfunction: Fall: Patient presenting from home for generalized weakness, fall, confusion. 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 She took lorazepam 2 mg and gabapentin 600 mg each time. Patient states that she has received instructions to do this in the past as needed. is unaware of these instructions. Likely metabolic encephalopathy due to polypharmacy/accidental overdose. Hold sedating medications, continue to monitor -- c/w home gabapentin at this time. Prn ativan at low dose resumed for anxiety. Pt tolerating well. PT/OT, pt awake, back to baseline. likely will need snf/rehab. UTI (urinary tract infection): UA suggestive of UTI, UCx - E coli Urine culture from 02/16/2023 grew E. coli with intermediate resistance to levofloxacin. Patient treated with Bactrim at that time. s/p atb course in hosp. Hypoxia: Mildly hypoxic on room air at 88% while in the ED, likely secondary to hypoventilation from sedation from lorazepam and gabapentin. currently on RA, saturating well. Diabetes mellitus, type 2: Hgb A1c 6.0 01/2023. Typically managed with 70/30 and metformin at home. Utilize NovoLog and Lantus per protocol while hospitalized. Ataxia: Controlled with Depakote -- will check level - low, d/w neuro, appropriately dosed for her myoclonic jerking. Other chronic medical conditions: CAD (coronary artery disease): History of nonobstructive CAD. Appears stable, no reports of chest pain. Continue home ASA, statin Morbid obesity: BMI 49.6, counselling on healthy diet and regular exercise regimen. Chronic obstructive pulmonary disease: No signs of acute exacerbation, continue home inhalers DVT PROPHYLAXIS SQ Lovenox Dispo: PT/OT, CM to assist with DC plan, stable for dc to rehab. med/surg. Admission and Anticipated Discharge Date Admission Date: March 30, 2023 Subjective Patient seen and examined at bedside as a follow-up of metabolic encephalopathy likely secondary to accidental overdose of Ativan, fall, ambulatory dysfunction, UTI, hypoxia secondary to hypoventilation from sedation from lorazepam and gabapentin at presentation. Patient was lying in bed, on RA, NAD, reports ongoing chronic back pain - control of symptoms with dicofenac gel and prn ketorolac, reports chronic joint pain/back pain, sleeping better overnight, denies headache or dizziness or chest pain or cough. Pt moved bm today, c/w laxatives. Physical Exam Physical Exam: GENERAL: Alert and oriented x3. NAD, on RA. Obese Class III. Appears weak. HEENT: No pallor, no icterus. Pupils equal, round and reactive to light. Oral mucosa moist. NECK: No JVD, no neck masses. HEART: S1 and S2 heard. Regular rate and rhythm. No murmur, no gallop. RESPIRATORY SYSTEM: Normal AP diameter. No accessory muscle use. No wheezing, no crackles. diminished lung sounds. ABDOMEN: Soft, bowel sounds present, nontender, no distention. CENTRAL NERVOUS SYSTEM: No facial droop. Speech is clear. Obeys simple commands. Moves extremities. EXTREMITIES: No edema, no erythema seen. Results & Data Results & Data Vital Signs (Past 12 Hours) Vital Signs Temp Pulse Resp BP Pulse Ox O2 Del Method 04/04/23 15:25 36.5 C 80 18 137/78 93 Room Air 04/04/23 06:58 36.8 C 55 L 16 142/74 H 95 Room Air
[2023-04-04] MEDS ORDERED: LANTUS PER UNIT CHARGE SC SCH (21:00)
[2023-04-04] MEDS: NYSTATIN POWDER 15GM BTL EXT PRN (21:02)
[2023-04-04] MEDS: ACETAMINOPHEN 325 MG TAB PO PRN (21:02)
[2023-04-04] MEDS: ATORVASTATIN 40 MG TAB PO SCH (21:03)
[2023-04-04] MEDS: rOPINIRole HCL 1 MG TABLET PO SCH (21:03)
[2023-04-04] MEDS: GABAPENTIN 300 MG CAP PO SCH (21:04)
[2023-04-04] MEDS: LATANOPROST 0.005% OP SOLN 2.5 ML BTL OP SCH (21:09)
[2023-04-05] MEDS: ENOXAPARIN INJ 40 MG/0.4 ML SYR SQ SCH (05:30)
[2023-04-05] MEDS: DICLOFENAC SOD 1% GEL 100 GM TUBE EXT SCH ×2 (05:31→10:37)
[2023-04-05] MEDS: ASPIRIN 81 MG ECTAB PO SCH (08:10)
[2023-04-05] MEDS: MULTIVITAMIN TAB PO SCH (08:10)
[2023-04-05] MEDS: MAGNESIUM OXIDE 400 MG TAB PO SCH (08:11)
[2023-04-05] MEDS: CYANOCOBALAMIN (B-12) 100 MCG TABLET PO SCH (08:11)
[2023-04-05] MEDS: PANTOprazole 40 MG TAB PO SCH (08:11)
[2023-04-05] MEDS: CETIRIZINE HCL 10 MG TABLET PO SCH (08:11)
[2023-04-05] MEDS: CHOLECALCIFEROL 1,000 UNITS 25 MCG TAB PO SCH (08:11)
[2023-04-05] MEDS: OXYBUTYNIN CHLORIDE XL 5 MG TABCR PO SCH (08:11)
[2023-04-05] MEDS: NYSTATIN SUSP 500,000 U/5 ML UDC PO SCH ×2 (08:11→12:40)
[2023-04-05] MEDS: DIVALPROEX DELAY RELEASE 500 MG TAB PO SCH (08:12)
[2023-04-05] MEDS: FLUTICASONE FUROATE 100MCG 14 PUFFS/INHALER INH SCH (08:12)
[2023-04-05] MEDS: ADVANCED PROBIOTIC 1250 MG CAPSULE PO SCH (08:12)
[2023-04-05] MEDS: UMECLIDINIUM/VILANTEROL 62.5/25MCG 7 PUFFS/INHALER INH SCH (08:13)
[2023-04-05] MEDS: DOCUSATE SODIUM 100 MG CAP PO SCH (08:24)
[2023-04-05] MEDS: INSULIN ASPART PER UNIT CHARGE SC SCH ×2 (08:24→12:40)
--- NOTE | 2023-04-05 13:51 | Hospitalist Progress Note ---
Date of Service April 05, 2023 Assessment & Plan (1) Polypharmacy: (2) Metabolic encephalopathy: Plan Polypharmacy: Metabolic encephalopathy: Accidental overdose: Ambulatory dysfunction: Fall: Patient presenting from home for generalized weakness, fall, confusion. 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 She took lorazepam 2 mg and gabapentin 600 mg each time. Patient states that she has received instructions to do this in the past as needed. is unaware of these instructions. She is instructed to take the current dose and direction to use benzodiazepines and other pain medications She is convinced that she will try to adhere to that Likely metabolic encephalopathy due to polypharmacy/accidental overdose. Hold sedating medications, continue to monitor -- c/w home gabapentin at this time. Prn ativan at low dose resumed for anxiety. Pt tolerating well. PT/OT, pt awake, back to baseline. likely will need snf/rehab. Was advised to go to SNF but the patient wants to go home as there is no bed available right now Discussed with the patient in detail and to the mental health case manager She feels comfortable to be discharged and will take extreme precaution to avoid fall and continue with home PT and OT UTI (urinary tract infection): UA suggestive of UTI, UCx - E coli Urine culture from 02/16/2023 grew E. coli with intermediate resistance to levofloxacin. Patient treated with Bactrim at that time. s/p atb course in hosp. No more antibiotic is needed Hypoxia: Mildly hypoxic on room air at 88% while in the ED, likely secondary to hypoventilation from sedation from lorazepam and gabapentin. currently on RA, saturating well. Diabetes mellitus, type 2: Hgb A1c 6.0 01/2023. Typically managed with 70/30 and metformin at home. Utilize NovoLog and Lantus per protocol while hospitalized. Ataxia: Controlled with Depakote -- will check level - low, d/w neuro, appropriately dosed for her myoclonic jerking. Other chronic medical conditions: CAD (coronary artery disease): History of nonobstructive CAD. Appears stable, no reports of chest pain. Continue home ASA, statin Morbid obesity: BMI 49.6, counselling on healthy diet and regular exercise regimen. Chronic obstructive pulmonary disease: No signs of acute exacerbation, continue home inhalers DVT PROPHYLAXIS SQ Lovenox Dispo: PT/OT, CM to assist with DC plan, stable for dc to rehab. med/surg. Be discharged home this afternoon Admission and Anticipated Discharge Date Admission Date: March 30, 2023 Subjective 04/05/2023 The patient was seen and examined in medical floor She was advised to go to rehab but there is no bed at [facility] The patient has been there before and think her fall was mechanical and she cannot take care of her at home Discussed with the mental health case manager She wanted to go home and she was discharged this afternoon Review of Systems 2 Review of Systems: All systems reviewed and are unremarkable except as noted below Physical Exam Physical Exam: Sitting on a chair without any acute distress Constitutional: well developed, well nourished and + morbidly obese; not ill appearing Eyes: PERRL, conjunctivae normal, anicteric sclerae ENMT: external ear and nose normal, oropharynx normal Neck: trachea midline, no thyromegaly Respiratory: no respiratory distress Auscultation: lungs clear to auscultation bilaterally Cardiovascular: Rate/Rhythm: regular rate and regular rhythm; not tachycardic Heart Sounds: normal S1 and normal S2; no murmur Extremities: + edema (1+ edema bilaterally) Gastrointestinal (Abdomen): Inspection/Auscultation: + abdomen distended and normal bowel sounds Percussion/Palpation: abdomen soft; abdomen nontender Musculoskeletal: No acute arthritis involving any joint Neurologic: normal touch/pain/proprioception and moves all extremities; no focal motor deficits Psychiatric: A+Ox3, euthymic affect Lymphatic: no cervical or axillary lymphadenopathy Results & Data Results & Data Vital Signs (Past 12 Hours) Vital Signs Temp Pulse Resp BP Pulse Ox O2 Del Method 04/05/23 07:04 36.7 C 65 16 120/67 94 Room Air Medications Administered Current Inpatient Medications Acetaminophen (Acetaminophen 325 Mg Tab) 650 mg PO Q4H PRN PRN Reason: pain/fever Stop: 04/27/23 15:20 Last Admin: 04/04/23 21:02 Dose: 650 mg Albuterol (Albuterol 0.083% Nebu Soln 3 Ml Vial) 2.5 mg INH Q6R PRN; Protocol PRN Reason: Shortness Of Breath Or Wheezing Stop: 04/27/23 15:20 Aspirin (Aspirin 81 Mg Ectab) 81 mg PO DAILY NEELAM Stop: 04/28/23 08:59 Last Admin: 04/05/23 08:10 Dose: 81 mg Atorvastatin Calcium (Atorvastatin 40 Mg Tab) 40 mg PO HS [facility] Stop: 04/27/23 20:59 Last Admin: 04/04/23 21:03 Dose: 40 mg Cetirizine HCl (Cetirizine Hcl 10 Mg Tablet) 10 mg PO QAM NEELAM Stop: 04/28/23 08:59 Last Admin: 04/05/23 08:11 Dose: 10 mg Cyanocobalamin (Cyanocobalamin (B-12) 100 Mcg Tablet) 100 mcg PO DAILY NEELAM Stop: 04/28/23 08:59 Last Admin: 04/05/23 08:11 Dose: 100 mcg Dextrose (Dextrose 50% 50 Ml Syringe) 25 - 50 ml IV UD PRN; Protocol PRN Reason: Hypoglycemia Protocol Stop: 04/27/23 15:20 Diclofenac Sodium (Diclofenac Sod 1% Gel 100 Gm Tube) 4 gm EXT Q6H NEELAM; Protocol Stop: 04/29/23 10:29 Last Admin: 04/05/23 10:37 Dose: 4 gm Divalproex Sodium (Divalproex Delay Release 500 Mg Tab) 500 mg PO BID NEELAM Stop: 04/27/23 20:59 Last Admin: 04/05/23 08:12 Dose: 500 mg Docusate Sodium (Docusate Sodium 100 Mg Cap) 100 mg PO BID [facility] Stop: 04/29/23 10:44 Last Admin: 04/05/23 08:24 Dose: 100 mg Enoxaparin Sodium (Enoxaparin Inj 40 Mg/0.4 Ml Syr) 40 mg SQ Q12H NEELAM Stop: 04/27/23 15:59 Last Admin: 04/05/23 05:30 Dose: 40 mg Fluticasone Furoate (Fluticasone Furoate 100mcg 14 Puffs/Inhaler) 1 puffs INH DAILY NEELAM Stop: 04/30/23 08:59 Last Admin: 04/05/23 08:12 Dose: 1 puffs Gabapentin (Gabapentin 300 Mg Cap) 300 mg PO HS [facility] Stop: 05/01/23 20:59 Last Admin: 04/04/23 21:04 Dose: 300 mg Glucagon (Glucagon For Inj 1 Mg Vial) 1 mg SQ UD PRN; Protocol PRN Reason: Hypoglycemia Protocol Stop: 04/27/23 15:20 Glucose (Glucose 10 Tab/Tube) 4 - 8 tab PO UD PRN; Protocol PRN Reason: Hypoglycemia Treatment Stop: 04/27/23 15:20 Glucose (Glucose 40% Gel 15 Gm Tube) 15 - 30 gm PO UD PRN; Protocol PRN Reason: Hypoglycemia Protocol Stop: 04/27/23 15:20 Insulin Aspart (Insulin Aspart Per Unit Charge) 0 units SC ACHS [facility]; Protocol Stop: 04/27/23 16:29 Last Admin: 04/05/23 12:40 Dose: 2 units Insulin Glargine (Lantus Per Unit Charge) 8 units SC HS [facility]; Protocol Stop: 05/02/23 20:59 Last Admin: 04/04/23 21:01 Dose: 8 units Lactobacillus Acidophilus (Advanced Probiotic 1250 Mg Capsule) 2 cap PO BID [facility] Stop: 04/27/23 20:59 Last Admin: 04/05/23 08:12 Dose: 2 cap Latanoprost (Latanoprost 0.005% Op Soln 2.5 Ml Btl) 1 drops OP QPM [facility] Stop: 04/27/23 20:59 Last Admin: 04/04/23 21:09 Dose: 1 drops Lorazepam (Lorazepam 0.5 Mg Tab) 0.5 mg PO TID PRN PRN Reason: Anxiety Stop: 05/02/23 09:23 Magnesium Oxide (Magnesium Oxide 400 Mg Tab) 400 mg PO BID [facility] Stop: 04/27/23 21:29 Last Admin: 04/05/23 08:11 Dose: 400 mg Melatonin (Melatonin 3 Mg Tab) 3 mg PO HS PRN PRN Reason: Sleep Stop: 04/28/23 20:29 Last Admin: 04/03/23 20:32 Dose: 3 mg Miscellaneous (Carbohydrates For Hypoglycemia ) 15 - 30 gm PO UD PRN PRN Reason: Hypoglycemia Protocol Stop: 04/27/23 15:20 Miscellaneous Information (Pharmacy Glycemic Mgmt Consult) 1 each N/A UD PRN PRN Reason: Consult Stop: 04/27/23 15:20 Multivitamins (Multivitamin Tab) 1 tab PO QAM [facility] Stop: 05/03/23 08:59 Last Admin: 04/05/23 08:10 Dose: 1 tab Nystatin (Nystatin Powder 15gm Btl) 1 appln EXT BID PRN PRN Reason: fungal rash Stop: 04/28/23 11:15 Last Admin: 04/04/23 21:02 Dose: 1 appln Nystatin (Nystatin Susp 500,000 U/5 Ml Udc) 5 ml PO QID NEELAM Stop: 04/09/23 16:59 Last Admin: 04/05/23 12:40 Dose: 5 ml Oxybutynin Chloride (Oxybutynin Chloride Xl 5 Mg Tabcr) 10 mg PO QAM NEELAM Stop: 04/28/23 08:59 Last Admin: 04/05/23 08:11 Dose: 10 mg Pantoprazole Sodium (Pantoprazole 40 Mg Tab) 40 mg PO BID NEELAM Stop: 04/27/23 20:59 Last Admin: 04/05/23 08:11 Dose: 40 mg Ropinirole HCl (Ropinirole Hcl 1 Mg Tablet) 1 mg PO HS NEELAM Stop: 04/27/23 20:59 Last Admin: 04/04/23 21:03 Dose: 1 mg Umeclidinium/Vilanterol (Umeclidinium/Vilanterol 62.5/25mcg 7 Puffs/Inhaler) 1 puffs INH DAILY NEELAM Stop: 04/28/23 08:59 Last Admin: 04/05/23 08:13 Dose: 1 puffs Vitamin D (Cholecalciferol 1,000 Units 25 Mcg Tab) 1,000 units PO DAILY NEELAM Stop: 04/28/23 08:59 Last Admin: 04/05/23 08:11 Dose: 1,000 units
--- NOTE | 2023-04-06 07:50 | Discharge Summary ---
Date of Service April 06, 2023 Admission HPI Per Admitting Provider 73-year-old female with PMH DM type II, diabetic neuropathy, dyslipidemia, COPD, nonobstructive CAD, morbid obesity, GERD, BPPV, ataxia, and other problems listed below who presents the ED for evaluation of fall and confusion. History obtained from the patient and who is the bedside and review of recent inpatient records as well as snf records and outpatient PCP and neurology notes. Patient recently admitted to [facility] 02/25-03/06 for fall and bilateral knee pain. Patient was discharged to [facility] for short-term rehab and returned home on 03/20. Last night, patient took double dose lorazepam and g abapentin at 9 PM -- lorazepam 2mg and gabapentin 600 mg -- and repeated the same dosing at 4 AM. Patient states that she was under the impression that she received instructions to do this as needed. This morning, patient was attempting to transfer from bed to bedside commode when her legs started to give out from under her. was able to slide her to the ground. She did not strike her head. also notes increased confusion. Urine has been foul- smelling for about the past 1 week. No fevers or chills. Patient is typically bed/chair bound and only takes a couple of steps to transfer. Patient denies chest pain and shortness of breath. No lightheadedness, dizziness, diaphoresis, syncopal events. Denies abdominal pain, nausea, vomiting, diarrhea. In the ED, patient is hemodynamically stable. She was mildly hypoxic on room air at 80%, improved to 2 L of oxygen via nasal cannula. Labs unremarkable with the exception of mild hypokalemia, K+ 3.4. CXR, left knee/tibia/fibula x-rays unremarkable. Admission Exam Per Admitting Provider Constitutional: WD/WN, vitals as above + obese; no acute distress Eyes: PERRL, conjunctivae normal, anicteric sclerae ENMT: external ear and nose normal, oropharynx normal Respiratory: normal respiratory effort; no respiratory distress Auscultation: + diminished lung sounds (Bilateral bases) Cardiovascular: Rate/Rhythm: regular rate and regular rhythm Vessels: normal peripheral pulses Extremities: no edema Gastrointestinal (Abdomen): normal bowel sounds, soft, nontender, no hepatosplenomegaly Musculoskeletal: Generally weak throughout Skin: no rashes, warm and dry Neurologic: PERRL, EOMI, accommodation nl, no face palsy, no dysarthria Psychiatric: Orientation: alert, oriented to person, oriented to place (knows she is at [facility] however did not know what town) and oriented to time (able to name year and month, could not correctly state day of week) Insight: + limited insight Principal Diagnosis Acute metabolic and cephalopathy-improved, ambulatory dysfunction, UTI, type 2 diabetes, COPD Discharge Exam Sitting on a chair without any acute distress Constitutional well developed, well nourished and + morbidly obese; not ill appearing Eyes PERRL, conjunctivae normal, anicteric sclerae ENMT external ear and nose normal, oropharynx normal Neck trachea midline, no thyromegaly Respiratory no respiratory distress Auscultation: lungs clear to auscultation bilaterally Cardiovascular Rate/Rhythm: regular rate and regular rhythm; not tachycardic Heart Sounds: normal S1 and normal S2; no murmur Extremities: + edema (1+ edema bilaterally) Gastrointestinal (Abdomen) Inspection/Auscultation: + abdomen distended and normal bowel sounds Percussion/Palpation: abdomen soft; abdomen nontender Neurologic normal touch/pain/proprioception and moves all extremities; no focal motor deficits Psychiatric A+Ox3, euthymic affect Lymphatic no cervical or axillary lymphadenopathy Discharge Data Allergies Allergy/AdvReac Type Severity Reaction Status Date / Time dog dander Allergy Intermediate SNEEZING, Verified 02/25/23 21:38 ITCHING EYES & THROAT grass pollen-perennial rye, Allergy Intermediate SNEEZING, Verified 02/25/23 21:38 standar ITCHING EYES & THROAT Consultations 03/28/23 12:54 ED Decision to Admit Stat Hospital Course (1) Polypharmacy: (2) Metabolic encephalopathy: Plan Polypharmacy: Metabolic encephalopathy: Accidental overdose: Ambulatory dysfunction: Fall: Patient presenting from home for generalized weakness, fall, confusion. 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 She took lorazepam 2 mg and gabapentin 600 mg each time. Patient states that she has received instructions to do this in the past as needed. is unaware of these instructions. She is instructed to take the current dose and direction to use benzodiazepines and other pain medications She is convinced that she will try to adhere to that Likely metabolic encephalopathy due to polypharmacy/accidental overdose. Hold sedating medications, continue to monitor -- c/w home gabapentin at this time. Prn ativan at low dose resumed for anxiety. Pt tolerating well. PT/OT, pt awake, back to baseline. likely will need snf/rehab. Was advised to go to SNF but the patient wants to go home as there is no bed available right now Discussed with the patient in detail and to the telehealth case manager She feels comfortable to be discharged and will take extreme precaution to avoid fall and continue with home PT and OT UTI (urinary tract infection): UA suggestive of UTI, UCx - E coli Urine culture from 02/16/2023 grew E. coli with intermediate resistance to levofloxacin. Patient treated with Bactrim at that time. s/p atb course in hosp. No more antibiotic is needed Hypoxia: Mildly hypoxic on room air at 88% while in the ED, likely secondary to hypoventilation from sedation from lorazepam and gabapentin. currently on RA, saturating well. Diabetes mellitus, type 2: Hgb A1c 6.0 01/2023. Typically managed with 70/30 and metformin at home. Utilize NovoLog and Lantus per protocol while hospitalized. Ataxia: Controlled with Depakote -- will check level - low, d/w neuro, appropriately dosed for her myoclonic jerking. Other chronic medical conditions: CAD (coronary artery disease): History of nonobstructive CAD. Appears stable, no reports of chest pain. Continue home ASA, statin Morbid obesity: BMI 49.6, counselling on healthy diet and regular exercise regimen. Chronic obstructive pulmonary disease: No signs of acute exacerbation, continue home inhalers DVT PROPHYLAXIS SQ Lovenox Dispo: PT/OT, CM to assist with DC plan, stable for dc to rehab. med/surg. Be discharged home this afternoon Total Time Total Time Spent Total Time Spent (In Minutes): 35 minutes Discharge Plan Discharge Items Patient Disposition: Home - Home Health Services Reason For Visit: AMS, FALL, UNINTENTIONAL OD Discharge Diagnosis: Acute metabolic and cephalopathy-improved, ambulatory dysfunction, UTI, type 2 diabetes, COPD Condition on Discharge: Fair Activity: Resume your previous activity Activity Comment: Continue PT and OT as an outpatient Non-emergency contact: Primary Care Provider Call non-emergency contact if: you have any medication questions and your symptoms worsen Follow-up/Referrals: Renny Abdi MD [Primary Care Provider] - 04/14/23 8:40 am (Date & Time 04/14/2023 8:40 AM Provider Renny Abdi MD Department Family [facility] ) Diet: Carb Consistent or DM2 Addtl Attending Provider Instructions: Please take extreme precaution to avoid fall Use your walking devices whenever you move around Continue with home PT and OT Try to use less of benzodiazepines and pain medications: Your lorazepam has been decreased to half tablet of 1 mg up to 3 times daily as needed Pending Studies at Discharge: No Stand-Alone Forms: My [facility] [employer], Smoking Cessation Medications and DC Order Prescriptions: New diclofenac sodium [Voltaren Arthritis Pain] 1 % Gel 4 g EXT Q6H Qty: 50 0RF Continued multivitamin Tablet 1 tab PO QAM atorvastatin 40 mg Tablet 40 mg PO HS acetaminophen 325 mg Tablet 325 mg PO Q6 PRN (Reason: Pain) cetirizine [Zyrtec] 10 mg Tablet 10 mg PO QAM oxybutynin chloride 10 mg Tablet Extended Release 24hr 10 mg PO QAM nystatin 100,000 unit/gram Cream 1 applic TOPICAL BID PRN (Reason: Rash) omeprazole 20 mg Capsule,Delayed Release(Dr/Ec) 20 mg PO BID Lactobacillus acidophilus Capsule 10 mg PO BID albuterol sulfate 90 mcg/actuation Hfa Aerosol Inhaler 2 puff INHALATION Q4H PRN (Reason: Shortness Of Breath) ketoconazole 2 % Cream 1 applic TOPICAL BID PRN (Reason: Rash) fluticasone propionate 50 mcg/actuation [place],Suspension 1 spray INTRANASAL QAM Trelegy Ellipta 100-62.5-25 mcg Blister With Device 1 inh INHALATION QAM latanoprost 0.005 % drops 1 drp ophthalmic (eye) QPM ropinirole 1 mg tablet 1 mg PO HS cyanocobalamin (vitamin B-12) [Vitamin B-12] 100 mcg Tablet 100 mcg PO DAILY albuterol sulfate 2.5 mg /3 mL (0.083 %) Solution For Nebulization 2.5 mg INHALATION DIRECTED PRN (Reason: Shortness Of Breath Or Wheezing) Novolin 70/30 U-100 Insulin 100 unit/mL (70-30) suspension See Rx Instructions .ROUTE .COMPLEX Rx Instructions: 32 units AM, 24 units PM divalproex 500 mg tablet,delayed release (DR/EC) 500 mg PO BID aspirin 81 mg Tablet,Delayed Release (Dr/Ec) 81 mg PO DAILY furosemide [Lasix] 20 mg Tablet 20 mg PO QAM PRN (Reason: EDEMA/WT GAIN) metformin 500 mg tablet extended release 24 hr 1,000 mg PO BID cholecalciferol (vitamin D3) [Vitamin D3] 25 mcg (1,000 unit) Capsule 25 mcg PO DAILY gabapentin 300 mg capsule 300 mg PO HS Changed lorazepam 1 mg Tablet 0.5 mg PO TID PRN (Reason: Anxiety) Qty: 1 0RF Patient Comments: per pt takes before riding in cars Rx Instructions: Take half of 1 mg tablet 3 times daily as needed for anxiety. Always try to use less of this medication to avoid confusion and fall Discharge Orders: Discharge Order (Routine); Ordered 04/05/23 Ordered By: Adri Villafuerte/Other Patient Handouts: Urinary Tract Infections in Women Admission Data Admit Date/Time: 03/30/23 18:34 Attending Provider: Adri Walsh Admit Provider: Dario Britton Primary Care Provider: Renny Abdi Other Providers: Dony Edwards [facility] ; [facility] ; Florence Nunes ; Dario Britton Other Interventions: Discharge Summary Assessment (RN) Last Done: 04/05/23 14:21
== END 2023-04-05 15:55 | disposition home health service (06) | DRG 917 ==
LOC: 2N 11:16 → ED 11:16 → SUATTDRO 13:11 → 2N 14:48 → SUATTDRO 03-30 18:34 → 3E 04-01 05:28

== ENCOUNTER 2023-07-28 06:17 | Inpatient (IN) ==
--- NOTE | 2023-07-07 15:34 | PAT Medication Instructions ---
Medication Instructions Date of Service July 07, 2023 Home Medications Lactobacillus acidophilus 10 mg PO QAM acetaminophen 325 mg tablet 325 mg PO Q6 PRN albuterol sulfate 90 mcg/actuation aerosol inhaler 2 puff inhalation Q4H PRN atorvastatin 40 mg tablet 40 mg PO HS cetirizine 10 mg tablet (Zyrtec) 10 mg PO QAM fluticasone fur. 100 mcg-umeclid 62.5 mcg-vilant 25 mcg inhalat.powder (Trelegy Ellipta) 1 inh inhalation QAM fluticasone propionate 50 mcg/actuation nasal spray,suspension 1 spray intranasal QAM ketoconazole 2 % topical cream 1 applic topical BID PRN multivitamin 1 tab PO QAM nystatin 100,000 unit/gram topical cream 1 applic topical UD PRN omeprazole 20 mg capsule,delayed release 20 mg PO BID oxybutynin chloride 10 mg tablet,extended release 24 hr 10 mg PO QAM albuterol sulfate 2.5 mg/3 mL (0.083 %) solution for nebulization 2.5 mg inhalation DIRECTED PRN aspirin 81 mg tablet,delayed release 81 mg PO QAM cholecalciferol (vitamin D3) 25 mcg (1,000 unit) capsule (Vitamin D3) 25 mcg PO QAM cyanocobalamin (vitamin B-12) 100 mcg tablet (Vitamin B-12) 100 mcg PO QAM divalproex 500 mg tablet,delayed release 500 mg PO BID furosemide 20 mg tablet (Lasix) 20 mg PO QAM PRN insulin human U-100 NPH-regulr 70-30 mix 100 unit/mL subcutaneous susp (Novolin 70/30 U-100 Insulin) 24 - 32 unit subcut BID latanoprost 0.005 % eye drops 1 drp ophthalmic (eye) HS metformin 500 mg tablet,extended release 24 hr 1,000 mg PO BID ropinirole 1 mg tablet 1 mg PO HS gabapentin 300 mg capsule 300 mg PO HS diclofenac sodium 1 % topical gel (Voltaren Arthritis Pain) 4 g EXT UD PRN lorazepam 1 mg tablet 0.5 mg PO UD PRN Continue as directed lorazepam 1 mg tablet 0.5 mg PO UD PRN(if needed) STOP taking 24 hours before surgery ketoconazole 2 % topical cream 1 applic topical BID PRN nystatin 100,000 unit/gram topical cream 1 applic topical UD PRN diclofenac sodium 1 % topical gel (Voltaren Arthritis Pain) 4 g EXT UD PRN DO NOT take the morning of surgery Lactobacillus acidophilus 10 mg PO QAM cetirizine 10 mg tablet (Zyrtec) 10 mg PO QAM multivitamin 1 tab PO QAM oxybutynin chloride 10 mg tablet,extended release 24 hr 10 mg PO QAM cholecalciferol (vitamin D3) 25 mcg (1,000 unit) capsule (Vitamin D3) 25 mcg PO QAM cyanocobalamin (vitamin B-12) 100 mcg tablet (Vitamin B-12) 100 mcg PO QAM furosemide 20 mg tablet (Lasix) 20 mg PO QAM PRN metformin 500 mg tablet,extended release 24 hr 1,000 mg PO BID Take morning of surgery With a small sip of water, OTHERWISE NOTHING TO EAT OR DRINK AFTER MIDNIGHT: acetaminophen 325 mg tablet 325 mg PO Q6 PRN(if needed) albuterol sulfate 90 mcg/actuation aerosol inhaler 2 puff inhalation Q4H PRN(use if needed; please bring with you to hospital day of surgery if possible) fluticasone fur. 100 mcg-umeclid 62.5 mcg-vilant 25 mcg inhalat.powder (Trelegy Ellipta) 1 inh inhalation QAM fluticasone propionate 50 mcg/actuation nasal spray,suspension 1 spray intranasal QAM omeprazole 20 mg capsule,delayed release 20 mg PO BID albuterol sulfate 2.5 mg/3 mL (0.083 %) solution for nebulization 2.5 mg inhalation DIRECTED PRN(use if needed; please bring with you to hospital day of surgery if possible) aspirin 81 mg tablet,delayed release 81 mg PO QAM (unless directed otherwise by surgeon) divalproex 500 mg tablet,delayed release 500 mg PO BID Take evening before surgery acetaminophen 325 mg tablet 325 mg PO Q6 PRN(if needed) albuterol sulfate 90 mcg/actuation aerosol inhaler 2 puff inhalation Q4H PRN(if needed) atorvastatin 40 mg tablet 40 mg PO HS omeprazole 20 mg capsule,delayed release 20 mg PO BID divalproex 500 mg tablet,delayed release 500 mg PO BID latanoprost 0.005 % eye drops 1 drp ophthalmic (eye) HS metformin 500 mg tablet,extended release 24 hr 1,000 mg PO BID ropinirole 1 mg tablet 1 mg PO HS gabapentin 300 mg capsule 300 mg PO HS Insulin Dependent Diabetic Patients * Test your blood sugar the morning of surgery * If Blood Sugar is GREATER THAN 150, take HALF of your regular dose of: insulin human U-100 NPH-regulr 70-30 mix 100 unit/mL subcutaneous susp (Novolin 70/30 U-100 Insulin). * If Blood Sugar is LESS THAN 150, DO NOT TAKE ANY: insulin human U-100 NPH- regulr 70-30 mix 100 unit/mL subcutaneous susp (Novolin 70/30 U-100 Insulin). Other Notes If you have any questions please call us at [phone] or [phone] or [phone] or [phone]
--- NOTE | 2023-07-20 12:56 | Anesthesiology Consultation ---
Date of Service July 20, 2023 Assessment & Plan (1) Encounter for pre-operative examination: - Check BSG AM DOS - Infectious disease screening: Per assessment on 07/20/23: No known infectious disease contacts or current infectious disease symptoms. No noted Covid positive test result in past 90 days. - Outpatient joint assessment: Pt currently scheduled for inpatient pathway. If surgeon requests review for outpatient joint pathway, patient is not recommended candidate for outpatient joint program from anesthesia standpoint. - PCP visit (04/18/23): "Patient was recently admitted to [facility] on 2 visit. 1st 02/25-03/06/23 for UTi/fever/balance problems/weakness. He also had a fall and no fractures notice. CT was done noting a stable 9 mm sclerotic focus in the left posterior 12th rib brief representing a bone island given long-term stability. She did note a 1 cm indeterminate sclerotic lesions in the right side of the T4 vertebral body lesion. Chest CTA was negative for PE head CT was negative. Pelvic x-ray no fracture. Brain MRI showed small vessel ischemic and degenerative changes in cerebral and cerebellar atrophy. She had some positional vertigo and was treated with the Gail maneuver. Her 2nd admission was March 30 through April 06. She had gone to [facility] for short-term rehab in between visits and return home on March 20. She took a double dose of her lorazepam and gabapentin at [facility] in order to help her back pain. The next morning her lytes came out from under her and she was unable to get back up. Had some increased confusion. EMS was called and she was hypoxic at 80%. X-ray of her knee and legs were negative. Chest x-ray was negative. She held the sedating medicines the hospital and she came back to baseline.. She has started home physical therapy which she is finding helpful. Her main complaint at this time is chronic left knee pain. She has been seeing orthopedics near her home who has been doing steroid shots but states she absolutely needs a knee replacement this point. She is willing to do this but wants to follow up with Pat. She also complains of coccygeal pain since her fall. Some chronic low back pain as well. She is very limited due to activity due to the pain. She is mostly in her wheelchair at home and transfers to at recliner night. She found the hospital bed at the rehab facility and the hospital much more comfortable." 6 month f/u recommended. - Neurology visit (07/11/23): "A 73-year-old female with a history of insulin- dependent diabetes, ataxia, recurrent falls, and RLS presenting to clinic for follow-up. Patient was last seen by myself in November of 2022. Today she presents with her . She continues to note difficulty walking as well as poor balance. SHe has had several falls including 1 this summer that resulted in hospitalization. She is seeing orthopedics for her knees. While admitted to [facility] this summer she had an MRI brain which showed cerebellar atrophy. She is using a walker or wheelchair. Her myoclonic jerks have have significantly improved with the use of Depakote. Her RLS is improved w the use of Requip.. presenting to clinic for follow-up for poor balance and recurrent falls. Her myoclonic jerks have been well controlled w the use of Depakote. Her RLS has improved with the use of Requip 1 mg QHS which I have refilled. MRI brain showed atrophy and small vessel ischemic changes. Cerebellar degeneration may be contributing. Aneta SCAN was normal. Gait difficulty likely multifactorial (obesity, arthritis, deconditioning, sensory ataxia). Previous EMG of the right lower extremity was reassuring showed no evidence of a neuropathy. Will arrange for labs today including a Vit E level. Will arrange for follow-up in 6 months or sooner if needed." Chart Review Chart Review: Acceptable Risk for Surgery and Patient seen in Pre Admission Testing Teaching & Discussion Pre-Anesthesia Teaching/Discussion Notes: Instructed NPO after midnight before surgery,except medications with 15 cc of water. Medication instructions provided according to the PAT guidelines. History Surgery Operation Date: 07/28/23 12:20 Proposed Procedures p Left Total Knee Arthroplasty - Lenard Taylor, Height/Weight Height: 5 ft Weight: 112.5 kg Allergies Allergy/AdvReac Type Severity Reaction Status Date / Time dog dander Allergy Unknown Sneezing, Verified 07/18/23 15:16 itchy eyes/throat grass pollen-perennial rye, Allergy Unknown Sneezing, Verified 07/18/23 15:16 standar itchy eyes/throat Medications Home Medications Medication Instructions Recorded Confirmed Last Taken Lactobacillus acidophilus 10 mg PO QAM 11/03/20 07/06/23 02/25/23 08:00 acetaminophen 325 mg tablet 325 mg PO Q6 PRN Pain 11/03/20 07/06/23 Unknown albuterol sulfate 90 mcg/actuation 2 puff inhalation Q4H PRN 11/03/20 07/06/23 Unknown aerosol inhaler Shortness Of Breath atorvastatin 40 mg tablet 40 mg PO HS 11/03/20 07/06/23 02/24/23 cetirizine 10 mg tablet (Zyrtec) 10 mg PO QAM 11/03/20 07/06/23 02/25/23 fluticasone fur. 100 mcg-umeclid 1 inh inhalation QAM 11/03/20 07/06/23 02/25/23 62.5 mcg-vilant 25 mcg inhalat.powder (Trelegy Ellipta) fluticasone propionate 50 1 spray intranasal QAM 11/03/20 07/06/23 02/25/23 mcg/actuation nasal spray,suspension ketoconazole 2 % topical cream 1 applic topical BID PRN Skin 11/03/20 07/06/23 Unknown Irritation multivitamin 1 tab PO QAM 11/03/20 07/06/23 02/25/23 nystatin 100,000 unit/gram topical 1 applic topical UD PRN Rash 11/03/20 07/06/23 Unknown cream omeprazole 20 mg capsule,delayed 20 mg PO BID 11/03/20 07/06/23 02/25/23 08:00 release oxybutynin chloride 10 mg 10 mg PO QAM 11/03/20 07/06/23 02/25/23 tablet,extended release 24 hr albuterol sulfate 2.5 mg/3 mL 2.5 mg inhalation DIRECTED PRN 02/25/23 07/06/23 Unknown (0.083 %) solution for nebulization Shortness Of Breath Or Wheezing aspirin 81 mg tablet,delayed 81 mg PO QAM 02/25/23 07/06/23 02/25/23 release cholecalciferol (vitamin D3) 25 25 mcg PO QAM 02/25/23 07/06/23 02/25/23 mcg (1,000 unit) capsule (Vitamin D3) cyanocobalamin (vitamin B-12) 100 100 mcg PO QAM 02/25/23 07/06/23 02/25/23 mcg tablet (Vitamin B-12) divalproex 500 mg tablet,delayed 500 mg PO BID 02/25/23 07/06/23 02/25/23 08:00 release furosemide 20 mg tablet (Lasix) 20 mg PO QAM PRN EDEMA/WT GAIN 02/25/23 07/06/23 Unknown insulin human U-100 NPH-regulr 24 - 32 unit subcut BID 02/25/23 07/06/23 02/25/23 08:00 70-30 mix 100 unit/mL subcutaneous susp (Novolin 70/30 U-100 Insulin) latanoprost 0.005 % eye drops 1 drp ophthalmic (eye) HS 02/25/23 07/06/23 02/24/23 metformin 500 mg tablet,extended 1,000 mg PO BID 02/25/23 07/06/23 02/25/23 08:00 release 24 hr ropinirole 1 mg tablet 1 mg PO HS 02/25/23 07/06/23 02/24/23 gabapentin 300 mg capsule 300 mg PO HS 03/28/23 07/06/23 Unknown diclofenac sodium 1 % topical gel 4 g EXT UD PRN Pain 07/06/23 07/06/23 Unknown (Voltaren Arthritis Pain) lorazepam 1 mg tablet 0.5 mg PO UD PRN Anxiety 07/06/23 07/06/23 Unknown Past Medical History Medical History Anxiety Ataxia uses walker BMI 50.0-59.9, adult BPPV (benign paroxysmal positional vertigo) CAD (coronary artery disease) Cardiac cath 04/2018- mild nonobstructive CAD Chronic obstructive pulmonary disease Claustrophobia Diabetes mellitus, type 2 Glaucoma History of melanoma back History of right breast cancer Dx 1997- chemo/radiation/surgery History of sepsis Hyperlipidemia Hypertension Myoclonic jerking Dr. Del Castillo EEG 04/2020: "Normal" awake and sleep EEG. No evidence of focal slowing or epileptiform activity. Osteoarthritis of knees, bilateral Overactive bladder Urinary incontinence Chronic Exercise / Class Metabolic Activity III < 4 Walking/Shop/Light housework (uses walker PRN, wheelchair for long distances/unstable ground) Past Family History Family History Brother Family hx of colon cancer Father Family hx of colon cancer Sister Family history of diabetes mellitus Daughter Family history of reaction to anesthesia nausea/vomiting/migraine Mother Family history of diabetes mellitus Brother Family history of diabetes mellitus Family hx colonic polyps Past Surgical History Surgical History Family history of reaction to anesthesia Daughter PONV History of appendectomy History of bilateral cataract extraction History of cardiac cath ~2018 ([facility])- no stents History of cholecystectomy History of colonoscopy History of lumpectomy of right breast History of Mohs micrographic surgery for skin cancer History of right breast biopsy malignant History of tooth extraction Past Anesthesia History No Hx of Anesthesia Complications Daughter- PONV History of PONV No Hx of PONV and No Hx of Motion Sickness Social History Smoking Status: Never smoker Do You Dip or Chew Tobacco: No Smoking End Date: quit 12 years ago Hx Alcohol Use: No Hx Substance Use: No substance use type: does not use Review of Systems Patient denies chest pain, shortness of breath, fever, chills, cough, wheezing, palpitations. Physical Exam Vital Signs VITALS BP 138/81 P 81 TEMP 98.4 SP02 94%RA RESP 16 PHYSICAL Full cervical extension range of motion. Full TMJ range of motion. TMD 3.5 finger breaths Mallampati Score 2 Dentition: upper full plate Lungs: clear throughout to auscultation Cardiac: regular rate and rhythm, no murmurs noted Spine: normal Carotid arteries: negative bruit Extremities: no LE edema, left ankle cut (r/t recent injury per patient- patient advised to make surgeon aware) Lab Results Anesthesia Preop Results Results Anesthesia Widget: WBC 8.30 K/ul (4.8-10.8) 07/20/23 Hgb 14.2 g/dl (12.0-16.0) 07/20/23 Hct 43.9 % (37.0-47.0) 07/20/23 Plt 249 K/uL (130-400) 07/20/23 Na 141 mmol/L (136-145) 07/20/23 K 4.1 mmol/L (3.5-5.1) 07/20/23 Cl 103 mmol/L (98-107) 07/20/23 CO2 29 mmol/L (21-32) 07/20/23 BUN 8 mg/dl (6-23) 07/20/23 Creat 0.57 mg/dl (0.6-1.2) L 10/19/23 Glucose Level 81 mg/dl (70-99(Fasting)) 07/20/23 PT 10.7 Seconds (9.0-12.0) 07/20/23 PTT 25.7 Seconds (21.0-31.0) 07/20/23 INR 1.0 (0.9-1.1) 07/20/23 HA1c 5.3 % (4.5-5.6) 07/20/23 Blood Type O Positive 07/20/23 Antibody Screen NEGATIVE 07/20/23 Testing Electrocardiogram Date: 03/28/23 NSR at 83bpm. iRBBB. Chest X-Ray Date: 03/28/23 FINDINGS: No lines and tubes are seen. The cardiomediastinal silhouette is stable. Lungs are underinflated but clear. No evidence of pleural effusion or pneumothorax. IMPRESSION: No acute abnormalities and in particular no radiographic evidence of pneumonia. Echocardiogram Date: 02/26/23 Normal biventricular function. Grossly normal valvular structure and function. Study was technically limited. Stress Test Date: 04/19/18 Type: DSE Equivocal dobutamine stress echocardiogram. [address] segment depressions inferiorly along With reproduction of chest/jaw pain at peak heart rate. No inducible wall motion abnormalities however. Normal LV systolic function, EF 50-60%. Mild concentric LVH. Grade 1 diastolic dysfunction. Poorly visualized valvular structures without significant stenosis or regurgitation by Doppler. Subsequent cardiac cath 04/20/2018 with mild nonobstructive CAD.* Cardiac Catheterization Date: 04/20/18 Mild nonobstructive CAD in major epicardial vessels. Diffuse moderate disease and very small PDA (too small for intervention). Normal intracardiac filling pressure. Recommendations: Continued ASCVD risk factor modification. Other Testing Head CT Date: 02/25/23 Findings: The paranasal sinuses and mastoid air cells are clear. The calvarium and skull base are intact. There is no mass, hematoma, midline shift, acute infarct. White matter hypodensity is nonspecific but suggestive of microvascular ischemic change. The ventricles and sulci demonstrate mild age-related involutional changes. Motion artifact. Impression: Motion artifact. No definite acute intracranial abnormality. Brain MRI Date: 02/28/23 Small vessel ischemic/degenerative changes. Cerebral and cerebellar atrophy.
--- NOTE | 2023-07-27 06:39 | History & Physical Report ---
Date of Service July 27, 2023 Assessment & Plan (1) Primary osteoarthritis of left knee: We will proceed with a left total knee arthroplasty. Postoperatively she will be started on aspirin for DVT prophylaxis and kept overnight in the hospital for postop medical management. She plans to have the hospital set up home health before discharge. History of Present Illness Chief Complaint: Osteoarthritis of the left knee. Primary Care Provider: Renny Abdi MD Criselda is a pleasant 73-year-old female who has been dealing with chronic increasing bilateral knee pain. She has ataxia and she has multiple falls. She also has giving way of both of her knees. She walks normally with a wheeled walker. Sometimes she is wheelchair bound. She said her biggest pain is really her knees. They keep her up at night. She has trouble going any distances. She is becoming more and more reliant on the wheelchair because of her knee pain. She has been seeing another provider and has had over a year's worth of conservative treatment including injections. X-rays and clinical examination been diagnostic for severe osteoarthritis of the knee. After failing conservative treatment, she has elected proceed with a left total knee arthroplasty. Allergies Allergy/AdvReac Type Severity Reaction Status Date / Time dog dander Allergy Unknown Sneezing, Verified 07/18/23 15:16 itchy eyes/throat grass pollen-perennial rye, Allergy Unknown Sneezing, Verified 07/18/23 15:16 standar itchy eyes/throat Home Medications Medication Instructions Recorded Confirmed Type Lactobacillus acidophilus 10 mg PO QAM 11/03/20 07/06/23 History acetaminophen 325 mg tablet 325 mg PO Q6 PRN Pain 11/03/20 07/06/23 History albuterol sulfate 90 mcg/actuation 2 puff inhalation Q4H PRN 11/03/20 07/06/23 History aerosol inhaler Shortness Of Breath atorvastatin 40 mg tablet 40 mg PO HS 11/03/20 07/06/23 History cetirizine 10 mg tablet (Zyrtec) 10 mg PO QAM 11/03/20 07/06/23 History fluticasone fur. 100 mcg-umeclid 1 inh inhalation QAM 11/03/20 07/06/23 History 62.5 mcg-vilant 25 mcg inhalat.powder (Trelegy Ellipta) fluticasone propionate 50 1 spray intranasal QAM 11/03/20 07/06/23 History mcg/actuation nasal spray,suspension ketoconazole 2 % topical cream 1 applic topical BID PRN Skin 11/03/20 07/06/23 History Irritation multivitamin 1 tab PO QAM 11/03/20 07/06/23 History nystatin 100,000 unit/gram topical 1 applic topical UD PRN Rash 11/03/20 07/06/23 History cream omeprazole 20 mg capsule,delayed 20 mg PO BID 11/03/20 07/06/23 History release oxybutynin chloride 10 mg 10 mg PO QAM 11/03/20 07/06/23 History tablet,extended release 24 hr albuterol sulfate 2.5 mg/3 mL 2.5 mg inhalation DIRECTED PRN 02/25/23 07/06/23 History (0.083 %) solution for nebulization Shortness Of Breath Or Wheezing aspirin 81 mg tablet,delayed 81 mg PO QAM 02/25/23 07/06/23 History release cholecalciferol (vitamin D3) 25 25 mcg PO QAM 02/25/23 07/06/23 History mcg (1,000 unit) capsule (Vitamin D3) cyanocobalamin (vitamin B-12) 100 100 mcg PO QAM 02/25/23 07/06/23 History mcg tablet (Vitamin B-12) divalproex 500 mg tablet,delayed 500 mg PO BID 02/25/23 07/06/23 History release furosemide 20 mg tablet (Lasix) 20 mg PO QAM PRN EDEMA/WT GAIN 02/25/23 07/06/23 History insulin human U-100 NPH-regulr 24 - 32 unit subcut BID 02/25/23 07/06/23 History 70-30 mix 100 unit/mL subcutaneous susp (Novolin 70/30 U-100 Insulin) latanoprost 0.005 % eye drops 1 drp ophthalmic (eye) HS 02/25/23 07/06/23 History metformin 500 mg tablet,extended 1,000 mg PO BID 02/25/23 07/06/23 History release 24 hr ropinirole 1 mg tablet 1 mg PO HS 02/25/23 07/06/23 History gabapentin 300 mg capsule 300 mg PO HS 03/28/23 07/06/23 History diclofenac sodium 1 % topical gel 4 g EXT UD PRN Pain 07/06/23 07/06/23 History (Voltaren Arthritis Pain) lorazepam 1 mg tablet 0.5 mg PO UD PRN Anxiety 07/06/23 07/06/23 History Past Med/Surg History Medical History Anxiety Ataxia uses walker BMI 50.0-59.9, adult BPPV (benign paroxysmal positional vertigo) CAD (coronary artery disease) Cardiac cath 04/2018- mild nonobstructive CAD Chronic obstructive pulmonary disease Claustrophobia Diabetes mellitus, type 2 Glaucoma History of melanoma back History of right breast cancer Dx 1997- chemo/radiation/surgery History of sepsis Hyperlipidemia Hypertension Myoclonic jerking Dr. Del Castillo EEG 04/2020: "Normal" awake and sleep EEG. No evidence of focal slowing or epileptiform activity. Osteoarthritis of knees, bilateral Overactive bladder Urinary incontinence Chronic Surgical History Family history of reaction to anesthesia Daughter PONV History of appendectomy History of bilateral cataract extraction History of cardiac cath ~2017 ([facility])- no stents History of cholecystectomy History of colonoscopy History of lumpectomy of right breast History of Mohs micrographic surgery for skin cancer History of right breast biopsy malignant History of tooth extraction Family History Brother Family hx of colon cancer Father Family hx of colon cancer Sister Family history of diabetes mellitus Daughter Family history of reaction to anesthesia nausea/vomiting/migraine Mother Family history of diabetes mellitus Brother Family history of diabetes mellitus Family hx colonic polyps Social History Smoking Status: Never smoker Second Hand Exposure: No; Do You Dip or Chew Tobacco: No; Hx Alcohol Use: No Hx Substance Use: No Preferred Language: Amharic Communication Ability: Effective Supervisor Publications Required: No Beliefs That Will Affect Care: None Current Living Situation: Spouse Current Living Situation Comment: lives at home with Feels Safe at Home: Yes Assistive Devices: Denture - Upper, Walker and Other Review of Systems All systems reviewed & are unremarkable except as noted in HPI & below. Physical Exam On physical examination left knee, she has pain of the distal medial femoral condyle and over the medial joint line.. Constitutional WD/WN, vitals as above Eyes PERRL, conjunctivae normal, anicteric sclerae ENMT external ear and nose normal, oropharynx normal Neck trachea midline, no thyromegaly Respiratory normal respiratory effort, lungs clear to auscultation Cardiovascular RRR, no murmur, no edema Gastrointestinal (Abdomen) normal bowel sounds, soft, nontender, no hepatosplenomegaly Skin no rashes, warm and dry Psychiatric A+Ox3, euthymic affect Results & Data Results & Data Laboratory Results . Diagnostic Findings X-rays of the left knee show advanced osteoarthritis with joint space narrowing, osteophyte formation, and [id number] articulation. PG Care Time/CCT Total # of Minutes Spent Total Time Spent with Patient: Total time spent is greater than 50% in coordination of care (as documented) at patient's floor/unit and/or counseling patient: Coding Level of Care Code None Diagnoses Primary osteoarthritis of left knee M17.12
[~2023-07-28 06:17] MED LIST: ACETAMINOPHEN 500 MG TAB PO SCH; FAMOTIDINE 20 MG TAB PO SCH; GABAPENTIN 300 MG CAP PO SCH; LR 500ML BOLUS, THEN 15ML/HR IV SCH; LR 60ML/HR IV SCH; ORTHO JOINT MIX INFIL SCH; TRANEXAMIC ACID 1,000 MG **IV Intra-op IV SCH; TRANEXAMIC ACID 1,000 MG **IV Pre-op IV SCH; ceFAZolin 2000MG 2,000 MG/15 ML SYR IV SCH; dexAMETHasone 4 MG TAB PO SCH
[2023-07-28] MEDS ORDERED: ROPIVACAINE 0.5% 5 MG/ML 30 ML VIAL ONE (06:30)
[2023-07-28] MEDS ORDERED: ORTHO JOINT ANESTHETIC ONE (06:40)
--- NOTE | 2023-07-28 06:44 | History & Physical Bridge Note ---
Date of Service July 28, 2023 History & Physical Bridge Note I have examined the patient, reviewed the History & Physical and in the interval since the performance of the History & Physical I have noted the following changes of clinical significance: no changes noted
[2023-07-28] MEDS ORDERED: PROPOFOL IV EMULSION 10 MG/ML 20 ML VIAL IV ONE ×2 (07:01→09:09)
[2023-07-28] MEDS ORDERED: ONDANSETRON INJ 2 MG/ML 2 ML VIAL ONE (07:01)
[2023-07-28] MEDS ORDERED: MIDAZOLAM HCL 1 MG/ML 2ML VIAL ONE ×2 (07:01→08:11)
[2023-07-28] MEDS ORDERED: LIDOCAINE 2% 2 ML VIAL/AMP(20MG/ML) INFIL ONE (07:01)
[2023-07-28] MEDS ORDERED: GLYCOPYRROLATE 0.2 MG/ML VIAL ONE (07:01)
[2023-07-28] MEDS ORDERED: KETOROLAC 30 MG/ML VIAL IV PRN (07:33)
[2023-07-28] MEDS ORDERED: ONDANSETRON INJ 2 MG/ML 2 ML VIAL IV PRN ×2 (07:33→11:35)
[2023-07-28] MEDS ORDERED: ATROPINE SULFATE 0.1 MG/ML 10ML SYR IV PRN (07:33)
[2023-07-28] MEDS ORDERED: HYDROmorphone INJ 1 MG/ML SYRINGE IV PRN (07:33)
[2023-07-28] MEDS ORDERED: ePHEDrine sulfate 50 MG/ML AMP IV PRN (07:33)
--- NOTE | 2023-07-28 09:19 | Operative Report ---
PG Post Operative Report Pre & Post Diagnosis Operation Date: 07/28/23 08:00 Pre-Op Diagnosis: Left Knee Degenerative Joint Disease Post-Op Diagnosis: Left Knee Degenerative Joint Disease I identified the patient and participated in the time-out.: Yes Procedure Operation Date: 07/28/23 08:00 Actual Procedures p Left Total Knee Arthroplasty(Left) - Lenard Taylor DO Surgeon Lenard Taylor DO Bag Loader Lenard Velasquez PA-C Estimated Blood Loss 30 Findings Consistent with Post-Op Diagnosis Specimens Left femoral tibial bone Description of Procedure Implants used: I used a Skye Persona total knee arthroplasty system with a size 7 narrow PS femur, D tibia, 28 oval patella, and a size 14 CPS polyethylene bearing. All components were cemented in place with Biomet cement. Criselda arrived [facility] for the above procedure. She was seen in the preoperative holding area and the operative extremity was identified and signed. She was given a preoperative antibiotic, TXA, a spinal anesthetic and an adductor nerve block. She was taken back to the operating room and laid on the table in supine position. She was given basic sedation. The operative knee was then prepped and draped in sterile fashion. A timeout was done, and the patient and the operative extremity was properly identified. A midline incision was made directly over the patella. Dissection was taken down to the extensor mechanism. A midvastus arthrotomy was used. The medial retinaculum was released and the fat pad was mostly excised. The knee was flexed and the ACL, PCL, and meniscus were removed. A drill was sent down the center of the femoral canal followed by an intramedullary igor. Off that igor a distal femoral cutting block was placed. 9 mm was resected off the distal femur at 5 of valgus. A posterior referencing AP sizing guide was then placed on the distal femur. The femur measured to be a size 7. 2 drill holes were placed in 3 of external rotation. A 4-in-1 cutting block was then impacted into place. Anterior, posterior, and chamfer cuts were then made. The proximal tibia was then exposed. An external tibial alignment guide was placed. A tibial cut guide was then anchored in place and the proximal tibia was then resected. The posterior aspect of the knee was then opened up and any additional meniscus fragments and osteophytes were removed. The tibia measured to be a size D. The tibial plate was then placed in the appropriate rotation and the tibia was drilled and punched. Trial components were then placed. I used a size 14 CPS polyethylene insert. The knee was brought through a full range of motion and felt to be stable. The peg holes for the femoral component were then drilled. The patella was then everted and 9 mm was resected off the posterior aspect of the patella. The patella measured to be a size 28 oval. 3 peg holes were then drilled. A trial patella was placed. The knee was once again brought through a full range of motion and felt to be stable. Trial components were then removed. The surrounding soft tissues were injected with 100 cc of an orthopedic pain control cocktail. All components were then cemented into place with Biomet cement. The final polyethylene insert was then snapped into place. Once cement was dry the tourniquet was deflated. Hemostasis was obtained. A dilute betadyne lavage was then done for 3 minutes. The joint was then irrigated with normal saline solution. The midvastus arthrotomy was then closed with #1 Vicryl suture. The skin was closed with 2-0 Vicryl, 3-0V lock suture, and mary. A soft compressive dressing was placed. She was then transferred to a hospital bed and taken to the postanesthesia care unit in stable condition. She tolerated the procedure well. Lenard Velasquez PA-C, was present for the entire procedure. He was critical for patient positioning, prepping, draping, retraction exposure, wound closure and application of sterile dressing. I attest to the content of the Intraoperative Record and any orders documented therein. Any exceptions are noted below.
--- NOTE | 2023-07-28 10:19 | XRay Report ---
XR knee LT 1 or 2V routine HISTORY: 73 years-old Female Surgical Post Op left knee arthroplasty COMPARISON: 06/20/2023 TECHNIQUE: 2 views of the left knee FINDINGS: Total joint arthroplasty with patellar resurfacing. Anterior midline skin mary with expected posto perative soft tissue swelling and deep tissue air. No acute fracture or dislocation. IMPRESSION: Total joint arthroplasty with expected postoperative changes. ACT 112: Negative or not required by law. The above report was generated using voice recognition software. It may contain grammatical, syntax o r spelling errors. Electronically signed by: Eulogio Houston M.D. 07/28/2023 10:18 AM
--- NOTE | 2023-07-28 11:01 | Anesthesiology Progress Note ---
Date of Service July 28, 2023 Anesthesia Post Procedure Vital Signs Vital Signs: Temp Pulse Pulse Resp BP BP Pulse Ox 07/28/23 10:55 73 15 111/73 95 07/28/23 10:45 75 15 103/72 96 07/28/23 10:35 77 15 109/72 97 07/28/23 10:25 76 15 118/76 97 07/28/23 10:15 79 15 113/74 99 07/28/23 10:05 83 12 111/79 94 07/28/23 09:55 83 15 121/77 95 07/28/23 09:45 91 H 17 110/88 99 07/28/23 09:36 36.7 C 109 H 16 107/83 95 07/28/23 07:03 36.7 C 93 H 20 117/69 93 O2 Del Method O2 Flow Rate 07/28/23 10:55 Nasal Cannula 2 07/28/23 10:45 Nasal Cannula 2 07/28/23 10:35 Nasal Cannula 2 07/28/23 10:25 Nasal Cannula 2 07/28/23 10:15 Nasal Cannula 2 07/28/23 10:05 Room Air 07/28/23 09:55 Room Air 07/28/23 09:45 Oxymask 7 07/28/23 09:36 Oxymask 7 07/28/23 07:03 Room Air Transfer of Care Handoff Completed per policy Notes Mental Status: alert / awake / arousable Patient Amnestic to Procedure: Yes Nausea / Vomiting: adequately controlled Pain: adequately controlled Airway Patency, RR, SpO2: stable & adequate BP & HR: stable & adequate Hydration State: stable & adequate Neuraxial Anesthesia: was administered and sensory block is resolving Anesthetic Complications: no major complications apparent
[2023-07-28] MEDS ORDERED: NYSTATIN CR 15 GM TUBE EXT PRN (11:35)
[2023-07-28] MEDS ORDERED: NALOXONE HCL 0.4 MG/1 ML VIAL/CARP IV PRN (11:35)
[2023-07-28] MEDS ORDERED: LORazepam 0.5 MG TAB PO PRN (11:35)
[2023-07-28] MEDS ORDERED: bisacodyL 10 MG SUPP PR PRN (11:35)
[2023-07-28] MEDS ORDERED: METOCLOPRAMIDE HCL INJ 5 MG/ML 2 ML VIAL IV PRN (11:35)
[2023-07-28] MEDS ORDERED: HYDROmorphone INJ 0.5 MG/0.5 ML SYR IV PRN (11:35)
[2023-07-28] MEDS ORDERED: FUROSEMIDE 20 MG TAB PO PRN (11:35)
[2023-07-28] MEDS ORDERED: KETOCONAZOLE 2% CR 15 GM TUBE EXT PRN (11:35)
[2023-07-28] MEDS ORDERED: PHARMACY GLYCEMIC MGMT CONSULT PRN (11:35)
[2023-07-28] MEDS ORDERED: ALBUTEROL HFA 8 GM INHALER INH PRN (11:35)
[2023-07-28] MEDS ORDERED: MAGNESIUM HYDROXIDE SUSP 30 ML UDC PO PRN (11:35)
[2023-07-28] MEDS ORDERED: INFLUENZA VACCINE HIGH-DOSE (HD-IIV4) PF 65+ 0.7mL SYR IM ONE (11:58)
[2023-07-28] MEDS ORDERED: ALBUTEROL 0.083% NEBU SOLN 3 ML VIAL INH PRN (12:02)
[2023-07-28] MEDS: SODIUM CHLORIDE 0.9% 1,000 ML IV SCH ×2 (12:08→22:16)
[2023-07-28] MEDS ORDERED: GLUCOSE 10 TAB/TUBE PO PRN (12:15)
[2023-07-28] MEDS ORDERED: DEXTROSE 50% 50 ML SYRINGE IV PRN (12:15)
[2023-07-28] MEDS ORDERED: CARBOHYDRATES FOR HYPOGLYCEMIA PO PRN (12:15)
[2023-07-28] MEDS ORDERED: LANTUS PER UNIT CHARGE SC ONE (12:15)
[2023-07-28] MEDS ORDERED: GLUCOSE 40% GEL 15 GM TUBE PO PRN (12:15)
[2023-07-28] MEDS ORDERED: GLUCAGON FOR INJ 1 MG VIAL IM PRN (12:15)
[2023-07-28] MEDS: INSULIN ASPART PER UNIT CHARGE SC SCH ×3 (12:45→21:39)
[2023-07-28] MEDS: KETOROLAC TROMETHAMINE 15 MG/ML VIAL IV SCH ×2 (12:46→17:28)
[2023-07-28] MEDS: ACETAMINOPHEN 500 MG TAB PO SCH ×2 (12:49→21:47)
--- NOTE | 2023-07-28 13:31 | Pharmacy Report ---
Pharmacy Glycemic Short Note 2 - Date of Service July 28, 2023 - Glycemic Short BSG Results (Last 24 hours): 07/28/23 07/28/23 07/28/23 06:47 09:38 11:42 POC Glucose 120 H 94 147 H OUTPATIENT ANTIDIABETIC REGIMEN: * Novolin 70/30 - 32 units SQ qAM, 24 units SQ qPM * Metformin 1000 mg PO BIDM HbA1c: 5.3% (07/20/23) ASSESSMENT: * PW is a 73 year old female POD #0 s/p left total knee arthroplasty * Received 8 mg PO dexamethasone perioperatively * Preop BSG of 120 mg/dL and postop BSG of 147 mg/dL * Pharmacy consulted for glycemic management in March - patient required low dose basal insulin and weight-based stress of 2 parameters at that time * Will be slightly more aggressive than last admission for today in light of PO dexamethasone today PLAN FOR INPATIENT GLYCEMIC CONTROL: * Hold outpatient oral diabetes medications * Basal insulin * Lantus 10 units SC x 1 * Lantus 8 units SC daily starting tomorrow morning * Bolus insulin * NovoLog per scale ACHS or Q6hrs while NPO * Goal Range: Low 110 mg/dL - High 140 mg/dL * Correction Factor: 20 mg/dL/unit * Nutritional / Prandial insulin per carb ratio of 1 unit per 7 grams CHO consumed
[2023-07-28] MEDS: ceFAZolin 2000MG 2,000 MG/15 ML SYR IV SCH ×2 (15:31→23:59)
[2023-07-28] MEDS: DIVALPROEX DELAY RELEASE 500 MG TAB PO SCH (21:29)
[2023-07-28] MEDS: GABAPENTIN 300 MG CAP PO SCH (21:29)
[2023-07-28] MEDS: ATORVASTATIN 40 MG TAB PO SCH (21:29)
[2023-07-28] MEDS: SENNA 8.6 MG TAB PO SCH (21:30)
[2023-07-28] MEDS: DOCUSATE SODIUM 100 MG CAP PO SCH (21:31)
[2023-07-28] MEDS: rOPINIRole HCL 1 MG TABLET PO SCH (21:31)
[2023-07-28] MEDS: ASPIRIN 81 MG ECTAB PO SCH (21:32)
[2023-07-28] MEDS: LATANOPROST 0.005% OP SOLN 2.5 ML BTL OP SCH (22:44)
[2023-07-29] MEDS: KETOROLAC TROMETHAMINE 15 MG/ML VIAL IV SCH ×4 (00:59→18:19)
[2023-07-29] MEDS: ACETAMINOPHEN 500 MG TAB PO SCH ×3 (05:57→21:47)
--- NOTE | 2023-07-29 08:20 | Orthopedic Progress Note ---
Date of Service July 29, 2023 Assessment & Plan (1) Status post left knee replacement: Overall I think she is doing okay. She is just a little bit slow to recover. She will be seen by physical therapy today for ambulation and range of motion exercises. She is on aspirin for DVT prophylaxis. Hopefully the nursing staff will be able to wean her off the oxygen throughout the day today. She is interested in going to a rehab facility. She will speak with case management about that. We will certainly keep her in the hospital today for therapy and pain control. Laci Aburto was seen and examined at bedside this morning. Overall she is doing ok ay but she is slow to recover. She is having a lot of pain in the knee. She has not been out of bed yet. She is still on 2 L of oxygen by nasal cannula.. Review of Systems All systems reviewed & are unremarkable except as noted in HPI & below. Physical Exam On physical examination of the left knee, the dressing is clean and dry. Her leg is out full extension. She has active dorsiflexion plantarflexion of her left ankle.. Results & Data Results & Data Laboratory Results . Diagnostic Findings Postoperative x-rays of the left knee show the prosthesis to be in anatomic alignment without any evidence of fracture, dyscrasia, or loosening.. PG Care Time/CCT Total # of Minutes Spent Total Time Spent with Patient: Total time spent is greater than 50% in coordination of care (as documented) at patient's floor/unit and/or counseling patient: Coding Level of Care Code 75431 Post Operative Follow-Up Diagnoses Status post left knee replacement Z96.652
[2023-07-29] MEDS: INSULIN ASPART PER UNIT CHARGE SC SCH ×4 (08:59→21:34)
[2023-07-29] MEDS ORDERED: LANTUS PER UNIT CHARGE SC SCH (09:00)
[2023-07-29] MEDS: ASPIRIN 81 MG ECTAB PO SCH ×2 (09:03→21:45)
[2023-07-29] MEDS: CETIRIZINE HCL 10 MG TABLET PO SCH (09:04)
[2023-07-29] MEDS: DOCUSATE SODIUM 100 MG CAP PO SCH ×2 (09:05→21:46)
[2023-07-29] MEDS: DIVALPROEX DELAY RELEASE 500 MG TAB PO SCH ×2 (09:05→21:47)
[2023-07-29] MEDS: FLUTICASONE FUROATE 100MCG 14 PUFFS/INHALER INH SCH (09:06)
[2023-07-29] MEDS: MULTIVITAMIN TAB PO SCH (09:07)
[2023-07-29] MEDS: OXYBUTYNIN CHLORIDE XL 5 MG TABCR PO SCH (09:07)
[2023-07-29] MEDS: oxyCODONE HCL IR 5 MG TAB (IMMEDIATE RELEASE) PO PRN ×2 (09:11→13:18)
[2023-07-29] MEDS: FLUTICASONE PROPIONATE NA SPR 16 GM BTL SCH (10:38)
[2023-07-29] MEDS: LATANOPROST 0.005% OP SOLN 2.5 ML BTL OP SCH (21:44)
[2023-07-29] MEDS: SENNA 8.6 MG TAB PO SCH (21:44)
[2023-07-29] MEDS: GABAPENTIN 300 MG CAP PO SCH (21:45)
[2023-07-29] MEDS: rOPINIRole HCL 1 MG TABLET PO SCH (21:45)
[2023-07-29] MEDS: ATORVASTATIN 40 MG TAB PO SCH (21:46)
[2023-07-30] MEDS: KETOROLAC TROMETHAMINE 15 MG/ML VIAL IV SCH ×2 (00:17→06:00)
[2023-07-30] MEDS ORDERED: SODIUM CHLORIDE 0.9% 1,000 ML IV ONE (02:10)
[2023-07-30] MEDS: ACETAMINOPHEN 500 MG TAB PO SCH ×3 (06:00→19:59)
[2023-07-30] MEDS: ASPIRIN 81 MG ECTAB PO SCH ×2 (08:29→19:59)
[2023-07-30] MEDS: CETIRIZINE HCL 10 MG TABLET PO SCH (08:30)
[2023-07-30] MEDS: DIVALPROEX DELAY RELEASE 500 MG TAB PO SCH ×2 (08:30→19:59)
[2023-07-30] MEDS: OXYBUTYNIN CHLORIDE XL 5 MG TABCR PO SCH (08:31)
[2023-07-30] MEDS: FLUTICASONE FUROATE 100MCG 14 PUFFS/INHALER INH SCH (08:31)
[2023-07-30] MEDS: FLUTICASONE PROPIONATE NA SPR 16 GM BTL SCH (08:31)
[2023-07-30] MEDS: MULTIVITAMIN TAB PO SCH (08:31)
[2023-07-30] MEDS: oxyCODONE HCL IR 5 MG TAB (IMMEDIATE RELEASE) PO PRN ×2 (08:35→16:56)
[2023-07-30] MEDS: INSULIN ASPART PER UNIT CHARGE SC SCH ×4 (08:55→21:05)
[2023-07-30] MEDS: LANTUS PER UNIT CHARGE SC SCH (08:56)
[2023-07-30] MEDS: DOCUSATE SODIUM 100 MG CAP PO SCH ×2 (08:59→19:59)
--- NOTE | 2023-07-30 16:26 | Orthopedic Progress Note ---
Date of Service July 30, 2023 Assessment & Plan (1) Status post left knee replacement: Overall she is doing as well as expected. She is little bit slow with physical therapy and she is having some pain in her knee, but none of that is unexpected. She is doing better with her breathing. She was seen by case management and she would like to be discharged to [facility]. She will need a minimum of 3 midnight stay. We hope to discharge her to a rehab facility tomorrow. Laci Aburto was seen and examined at bedside this morning. Overall she is doing okay. She was slow to ambulate with physical therapy. She is having some pain in the knee which is to be expected. She has no other complaints. She has been weaned off the oxygen and she is breathing on room air.. Review of Systems All systems reviewed & are unremarkable except as noted in HPI & below. Physical Exam On physical examination left knee, the dressing is clean and dry. Her leg is out full extension. She has active dorsiflexion plantarflexion of her left ankle.. Results & Data Results & Data Laboratory Results . Diagnostic Findings . PG Care Time/CCT Total # of Minutes Spent Total Time Spent with Patient: Total time spent is greater than 50% in coordination of care (as documented) at patient's floor/unit and/or counseling patient: Coding Level of Care Code 24898 Post Operative Follow-Up Diagnoses Status post left knee replacement Z96.652
[2023-07-30] MEDS: LATANOPROST 0.005% OP SOLN 2.5 ML BTL OP SCH (19:58)
[2023-07-30] MEDS: SENNA 8.6 MG TAB PO SCH (19:58)
[2023-07-30] MEDS: GABAPENTIN 300 MG CAP PO SCH (19:59)
[2023-07-30] MEDS: ATORVASTATIN 40 MG TAB PO SCH (19:59)
[2023-07-30] MEDS: rOPINIRole HCL 1 MG TABLET PO SCH (19:59)
[2023-07-31] MEDS: oxyCODONE HCL IR 5 MG TAB (IMMEDIATE RELEASE) PO PRN ×3 (00:33→21:22)
[2023-07-31] MEDS: ACETAMINOPHEN 500 MG TAB PO SCH ×3 (05:15→21:27)
[2023-07-31] MEDS: CETIRIZINE HCL 10 MG TABLET PO SCH (08:20)
[2023-07-31] MEDS: ASPIRIN 81 MG ECTAB PO SCH ×2 (08:20→21:27)
[2023-07-31] MEDS: DIVALPROEX DELAY RELEASE 500 MG TAB PO SCH ×2 (08:21→21:27)
[2023-07-31] MEDS: FLUTICASONE FUROATE 100MCG 14 PUFFS/INHALER INH SCH (08:21)
[2023-07-31] MEDS: DOCUSATE SODIUM 100 MG CAP PO SCH ×2 (08:21→21:27)
[2023-07-31] MEDS: OXYBUTYNIN CHLORIDE XL 5 MG TABCR PO SCH (08:22)
[2023-07-31] MEDS: FLUTICASONE PROPIONATE NA SPR 16 GM BTL SCH (08:22)
[2023-07-31] MEDS: MULTIVITAMIN TAB PO SCH (08:22)
[2023-07-31] MEDS: LANTUS PER UNIT CHARGE SC SCH (09:04)
[2023-07-31] MEDS: INSULIN ASPART PER UNIT CHARGE SC SCH ×4 (09:04→21:23)
--- NOTE | 2023-07-31 11:15 | Pharmacy Report ---
Pharmacy Glycemic Short Note 2 - Date of Service July 31, 2023 - Glycemic Short BSG Results (Last 24 hours): 07/30/23 07/30/23 07/30/23 11:36 16:41 21:01 POC Glucose 106 H 193 H 112 H 07/31/23 07:31 POC Glucose 121 H OUTPATIENT ANTIDIABETIC REGIMEN: * Novolin 70/30 - 32 units SQ qAM, 24 units SQ qPM * Metformin 1000 mg PO BIDM HbA1c: 5.3% (07/20/23) ASSESSMENT: 07/31: * Criselda received 19 units of insulin yesterday of which 7 were basal * She is POD #3 today, no glycemic stressors noted at this time * Fasting BSG this AM within goal, continue current basal regiment * BSGs seem to correct well, but jump after meals, will tighten carbohydrate ratio slightly 07/28: * PW is a 73 year old female POD #0 s/p left total knee arthroplasty * Received 8 mg PO dexamethasone perioperatively * Preop BSG of 120 mg/dL and postop BSG of 147 mg/dL * Pharmacy consulted for glycemic management in March - patient required low dose basal insulin and weight-based stress of 2 parameters at that time * Will be slightly more aggressive than last admission for today in light of PO dexamethasone today PLAN FOR INPATIENT GLYCEMIC CONTROL: * Hold outpatient oral diabetes medications * Basal insulin * Lantus 7 units SC daily * Bolus insulin * NovoLog per scale ACHS or Q6hrs while NPO * Goal Range: Low 110 mg/dL - High 140 mg/dL * Correction Factor: 25 mg/dL/unit * Nutritional / Prandial insulin per carb ratio of 1 unit per 7 grams CHO consumed
--- NOTE | 2023-07-31 15:02 | Orthopedic Progress Note ---
Date of Service July 31, 2023 Assessment & Plan (1) Status post left knee replacement: Overall she is doing about as well as expected. She not having too much pain in the knee. I encouraged her to be up and ambulating with therapy. She is on aspirin for DVT prophylaxis. I am going to start her on Keflex prophylactically while she is here at the hospital awaiting a bed. She is currently awaiting discharge to rehab facility. She is orthopedically stable for discharge when medically ready. Laci Aburto was seen and examined at bedside this morning. Overall she is doing okay. She has some pain in the knee. She was able to ambulate a little bit better today with physical therapy. She has no other complaints.. Review of Systems All systems reviewed & are unremarkable except as noted in HPI & below. Physical Exam On physical examination left knee, the dressing has been changed. The incisions are clean and dry. Her leg is out full extension.. Results & Data Results & Data Laboratory Results . Diagnostic Findings . PG Care Time/CCT Total # of Minutes Spent Total Time Spent with Patient: Total time spent is greater than 50% in coordination of care (as documented) at patient's floor/unit and/or counseling patient: Coding Level of Care Code 87993 Post Operative Follow-Up Diagnoses Status post left knee replacement Z96.652
[2023-07-31] MEDS: cephALEXin 500 MG CAP PO SCH ×2 (17:47→23:03)
[2023-07-31] MEDS: GABAPENTIN 300 MG CAP PO SCH (21:27)
[2023-07-31] MEDS: LATANOPROST 0.005% OP SOLN 2.5 ML BTL OP SCH (21:27)
[2023-07-31] MEDS: SENNA 8.6 MG TAB PO SCH (21:27)
[2023-07-31] MEDS: ATORVASTATIN 40 MG TAB PO SCH (21:27)
[2023-07-31] MEDS: rOPINIRole HCL 1 MG TABLET PO SCH (21:27)
[2023-08-01] MEDS: cephALEXin 500 MG CAP PO SCH ×2 (05:55→11:53)
[2023-08-01] MEDS: ACETAMINOPHEN 500 MG TAB PO SCH ×2 (05:55→14:26)
--- NOTE | 2023-08-01 06:55 | Orthopedic Progress Note ---
Date of Service August 01, 2023 Assessment & Plan (1) Status post left knee replacement: Overall she is doing fairly well. She is not having too much pain in the left knee at this point. She has been participating with physical therapy. She is on aspirin for DVT prophylaxis. She will be seen by physical therapy again today for ambulation and range of motion exercises. She is orthopedically stable for discharge to a nursing facility when a bed becomes available. She will follow-up with orthopedics in 2 weeks. Laci Aburto was seen and examined at bedside this morning. Overall she is doing okay. She is not having too much pain in the left knee. She has been up and participating with physical therapy. She has no other complaints.. Review of Systems All systems reviewed & are unremarkable except as noted in HPI & below. Physical Exam On physical examination left knee, the incision is clean and dry. Her leg is out in full extension. She has active dorsiflexion plantarflexion of her left ankle.. Results & Data Results & Data Laboratory Results . Diagnostic Findings . PG Care Time/CCT Total # of Minutes Spent Total Time Spent with Patient: Total time spent is greater than 50% in coordination of care (as documented) at patient's floor/unit and/or counseling patient: Coding Level of Care Code 19214 Post Operative Follow-Up Diagnoses Status post left knee replacement Z96.652
--- NOTE | 2023-08-01 06:58 | Discharge Summary ---
Date of Service August 01, 2023 Admission HPI (Per Admitting) Criselda is a pleasant 73-year-old female who has been dealing with chronic increasing bilateral knee pain. She has ataxia and she has multiple falls. She also has giving way of both of her knees. She walks normally with a wheeled walker. Sometimes she is wheelchair bound. She said her biggest pain is really her knees. They keep her up at night. She has trouble going any distances. She is becoming more and more reliant on the wheelchair because of her knee pain. She has been seeing another provider and has had over a year's worth of conservative treatment including injections. X-rays and clinical examination been diagnostic for severe osteoarthritis of the knee. After failing conservative treatment, she has elected proceed with a left total knee arthroplasty. Admission Exam (Per Admitting) On physical examination left knee, she has pain of the distal medial femoral condyle and over the medial joint line.. Principal Diagnosis Same as "Discharge Diagnosis" noted below under Discharge Instructions. Discharge Exam On physical examination left knee, the incision is clean and dry. Her leg is out in full extension. She has active dorsiflexion plantarflexion of her left ankle.. Discharge Data Procedures Performed Operation Date: 07/28/23 08:00 Actual Procedures p Left Total Knee Arthroplasty(Left) - Lenard Taylor DO Ordered Studies 07/28/23 05:00 US - OR guided needle placemen Routine Hospital Course (1) Status post left knee replacement: On July 28, 2023 Criselda arrived at [facility] in the hospital and underwent a left knee replacement without complication. Postoperatively she was started on aspirin for DVT prophylaxis and transferred to the general orthopedic floors. Her hospital course was uneventful. On postop day #1 she was a little bit hypoxic. She had a little bit of trouble working with physical therapy. She w as having a lot of pain in the knee. On postop day #2 she was feeling a little bit better. She was weaned off her oxygen. She was still having some pain in the knee but was improving and she was able to participate better with physical therapy. She was seen by case management and the decision was made to go to a rehab facility. On postop day #3 she was doing better. She was working better with physical therapy. The dressing was changed. On postop day #4 she continued to do well. Her vital signs were stable. She was then discharged to a rehab facility. She will follow-up with orthopedics in 2 weeks. PG Care Time/CCT Total # of Minutes Spent Total Time Spent with Patient: Total time spent is greater than 50% in coordination of care (as documented) at patient's floor/unit and/or counseling patient: Discharge Plan Discharge Items Patient Disposition: Transfer Residential Fac Reason For Visit: Left Knee Degenerative Joint Disease Discharge Diagnosis: Left knee replacement Activity: Per Instructions section Non-emergency contact: Surgeon Call non-emergency contact if: your wound has increased redness and your wound has increased drainage Follow-up/Referrals: Renny Abdi MD [Primary Care Provider] - Diet: Regular Addtl Attending Provider Instructions: Activity and Therapy Recommendations: * If you are using [facility] then therapy will be provided at your home until they feel you have accomplished all of your goals. * If you are using [facility] then Physical Therapy will be provided until they feel you are ready to start Outpatient Physical Therapy. * If you are not using home therapy then Outpatient Physical Therapy should start about 3-5 days from your day of surgery. Therapy will last about 6-10 weeks * It is important not to put a pillow under your knee when you are relaxing or sleeping. It is just as important to make sure you are getting your knee perfectly straight as it is to regain your knee bend. * You were shown a series of exercises in the hospital. Do these exercises three times each day including the exercises you were shown in physical therapy. * Get up and walk several times each day. For the first four weeks, try not to stand or walk for more than one hour at a time. If you do stand or walk for more than one hour, you will not hurt anything, but your leg will likely swell. * As you feel comfortable, you may change from the walker or crutches to a cane and then to independent walking. Medications: * Narcotic You will likely be sent home from the hospital with a prescription for the narcotic pain medication that worked best throughout your stay. * Aspirin Most patients will be required to take Aspirin 81mg twice a day for 6 weeks after surgery. This is obtained [id number] and a prescription is not necessary. * Cefadroxil take the antibiotic twice a day for 10 days to help prevent infection. * Other medications may be prescribed for specific circumstances. If you have any questions, please call the office at . * Resume previous home medications unless otherwise instructed TEDs/Elastic Stockings: The white elastic stockings help limit swelling and prevent blood clots from forming in your legs.~ The more you wear them, the more they work. Wear them for six weeks. Dressing Care: The dressing can be changed after physical therapy on postop day #1. Daily dry dressing changes for a few days, especially if the incision is still draining some. If the incision is not draining then you may leave the mary open to air. If there is a little bit of drainage or if the mary are getting stuck on your clothing then cover the incision with a dry dressing. The mary will be removed at your 2 week follow-up appointment. Showering: You may shower 5 days from the day of surgery as long as the incision is no longer draining. You may shower with the mary exposed. Let soapy water run over the mary and pat them dry. Do not scrub or soak the incision. Things To Watch For: * Drainage from the incision site that occurs more than one week after your stanton rgery. * Increased redness at the incision site. * Fever above 102 degrees Fahrenheit. * Unusual chest pain or shortness of breath. * Call [facility] at with any of the above problems Follow-Up Visit: Follow-up with Dr. Taylor's PA (Lenard Velasquez) 2-3 weeks after your day of surgery. He will remove your mary and answer any questions. If you have any additional questions or concerns, Dr Taylor is usually in the office at the same time and will be available An appointment was probably scheduled when you signed-up for surgery in the of [facility]. If you have any questions call Office Instructions: More detailed instructions as well as Frequently Asked Questions were provided in a folder by our office when you signed-up for surgery. Please review these instructions when you get home. If you have any further questions or concerns, please feel free to call the office at [phone] Pending Studies at Discharge: No Stand-Alone Forms: My [facility] [employer] [facility], Smoking Cessation Skilled Items Patient informed of condition?: Yes DNR: No Discharge Level of Care: Skilled Communicable Disease: No Discharge Prognosis: Improving Lines: None Urinary Catheter: No Medications and DC Order Prescriptions: New oxycodone 5 mg Tablet 5 mg PO Q4H PRN (Reason: pain) Qty: 30 0RF cefadroxil 500 mg capsule 500 mg PO BID 10 Days Qty: 20 0RF Continued multivitamin Tablet 1 tab PO QAM atorvastatin 40 mg Tablet 40 mg PO HS acetaminophen 325 mg Tablet 325 mg PO Q6 PRN (Reason: Pain) cetirizine [Zyrtec] 10 mg Tablet 10 mg PO QAM oxybutynin chloride 10 mg Tablet Extended Release 24hr 10 mg PO QAM nystatin 100,000 unit/gram Cream 1 applic TOPICAL UD PRN (Reason: Rash) omeprazole 20 mg Capsule,Delayed Release(Dr/Ec) 20 mg PO BID Lactobacillus acidophilus Capsule 10 mg PO QAM albuterol sulfate 90 mcg/actuation Hfa Aerosol Inhaler 2 puff INHALATION Q4H PRN (Reason: Shortness Of Breath) ketoconazole 2 % Cream 1 applic TOPICAL BID PRN (Reason: Skin Irritation) fluticasone propionate 50 mcg/actuation [place],Suspension 1 spray INTRANASAL QAM Trelegy Ellipta 100-62.5-25 mcg Blister With Device 1 inh INHALATION QAM latanoprost 0.005 % drops 1 drp ophthalmic (eye) HS Patient Comments: both eyes ropinirole 1 mg tablet 1 mg PO HS cyanocobalamin (vitamin B-12) [Vitamin B-12] 100 mcg Tablet 100 mcg PO QAM albuterol sulfate 2.5 mg /3 mL (0.083 %) Solution For Nebulization 2.5 mg INHALATION DIRECTED PRN (Reason: Shortness Of Breath Or Wheezing) Novolin 70/30 U-100 Insulin 100 unit/mL (70-30) suspension 24 - 32 unit subcut BID Patient Comments: 32 units am and 24 units pm Rx Instructions: 32 units AM, 24 units PM divalproex 500 mg tablet,delayed release (DR/EC) 500 mg PO BID furosemide [Lasix] 20 mg Tablet 20 mg PO QAM PRN (Reason: EDEMA/WT GAIN) metformin 500 mg tablet extended release 24 hr 1,000 mg PO BID cholecalciferol (vitamin D3) [Vitamin D3] 25 mcg (1,000 unit) Capsule 25 mcg PO QAM lorazepam 1 mg tablet 0.5 mg PO UD PRN (Reason: Anxiety) Patient Comments: per pt takes before riding in cars Rx Instructions: Take half of 1 mg tablet 3 times daily as needed for anxiety. Always try to use less of this medication to avoid confusion and fall diclofenac sodium [Voltaren Arthritis Pain] 1 % gel 4 g EXT UD PRN (Reason: Pain) gabapentin 300 mg capsule 300 mg PO HS Changed aspirin 81 mg Tablet,Delayed Release (Dr/Ec) 81 mg PO BID 42 Days Qty: 0 0RF Discharge Orders: Discharge Order (Routine); Ordered 07/31/23 Ordered By: Lenard Taylor Admission Data Admit Date/Time: 07/30/23 16:26 Attending Provider: Lenard Taylor Admit Provider: Lenard Taylor Primary Care Provider: Renny Abdi Other Providers: Tyson Mehta ; [facility]
[2023-08-01] MEDS: DIVALPROEX DELAY RELEASE 500 MG TAB PO SCH (08:29)
[2023-08-01] MEDS: DOCUSATE SODIUM 100 MG CAP PO SCH (08:29)
[2023-08-01] MEDS: MULTIVITAMIN TAB PO SCH (08:29)
[2023-08-01] MEDS: OXYBUTYNIN CHLORIDE XL 5 MG TABCR PO SCH (08:30)
[2023-08-01] MEDS: CETIRIZINE HCL 10 MG TABLET PO SCH (08:30)
[2023-08-01] MEDS: FLUTICASONE PROPIONATE NA SPR 16 GM BTL SCH (08:31)
[2023-08-01] MEDS: FLUTICASONE FUROATE 100MCG 14 PUFFS/INHALER INH SCH (08:31)
[2023-08-01] MEDS: INSULIN ASPART PER UNIT CHARGE SC SCH ×2 (09:18→12:25)
[2023-08-01] MEDS: LANTUS PER UNIT CHARGE SC SCH (09:19)
[2023-08-01] MEDS: ASPIRIN 81 MG ECTAB PO SCH (09:31)
[2023-08-01] MEDS: oxyCODONE HCL IR 5 MG TAB (IMMEDIATE RELEASE) PO PRN (15:26)
== END 2023-08-01 15:53 | DRG 470 ==
LOC: ASU 06:17 → 3N 06:17

== ENCOUNTER 2024-01-23 10:10 | Inpatient (IN) ==
[2024-01-23 10:44] LABS: Basophils # (auto) 0.07 K/uL (0.00-0.20); Basophils % (auto) 0.7 %; Eosinophils # (auto) 0.12 K/uL (0.00-0.50); Eosinophils % (auto) 1.2 %; Hematocrit (blood only) 41.1 % (37.0-47.0); Hemoglobin 13.5 g/dl (12.0-16.0); Immature Granulocytes # (auto) 0.09 K/uL (0.01-0.20); Immature Granulocytes % (auto) 0.9 %; Lymphocytes # (auto) 1.61 K/uL (1.20-3.40); Lymphocytes % (auto) 16.4 %; Mean Corpuscular Hemoglobin 26.1 pg (25.0-34.0); Mean Corpuscular Hgb Conc 32.8 g/dL (32.0-36.0); Mean Corpuscular Volume 79.3 fL (80.0-100.0); Mean Platelet Volume 9.6 fL (9.4-12.4); Monocytes # (auto) 0.65 K/uL (0.11-0.59); Monocytes % (auto) 6.6 %; Neutrophils # (auto) 7.27 K/uL (1.40-6.50); Neutrophils % (auto) 74.2 %; Platelet Count 177 K/uL (130-400); RDW Coefficient of Variation 17.2 % (11.5-14.5); RDW Standard Deviation 49.7 fL (36.4-46.3); Red Blood Count 5.18 M/uL (4.20-5.40); White Blood Count 9.81 K/ul (4.8-10.8)
[2024-01-23 10:57] LABS: Albumin Level 3.3 gm/dl (3.4-5.0); Anion Gap 8 (3-11); Bilirubin,Total 0.4 mg/dl (0.2-1.0); Calcium 9.1 mg/dl (8.6-10.3); Carbon Dioxide 27 mmol/L (21-32); Chloride 103 mmol/L (98-107); Sodium 138 mmol/L (136-145)
[2024-01-23 11:03] LABS: Alanine Aminotransferase 14 U/L (7-52); Albumin Globulin Ratio 1.1 (0.9-2); Alkaline Phosphatase 58 U/L (34-104); Aspartate Aminotransferase 31 U/L (13-39); BUN Creatinine Ratio 28.8 (10-20); Blood Urea Nitrogen 19 mg/dl (6-23); Est GFR (African American) 101.6 ml/min; Est GFR (Non-African American) 87.6 ml/min; Glucose 119 mg/dl (70-99(Fasting)); Lipase 21 U/L (11-82); Total Protein 6.3 gm/dl (6.0-8.3)
--- NOTE | 2024-01-23 11:20 | XRay Report ---
XR chest 1V portable HISTORY: SOB, hypoxia COMPARISON: Chest 03/28/2023. FINDINGS: No pneumothorax. There are low lung volumes with mild elevation of the right hemidiaphragm. This remains unchanged. The heart remains mildly enlarged. There are calcifications within the aorti c knob. There is mild central pulmonary vascular congestion without overt edema. Bibasilar linear den sities are nonspecific but favor subsegmental atelectasis. Prior cholecystectomy. No acute fractures. IMPRESSION: 1. Cardiomegaly with mild congestive change. 2. Low lung volumes and bibasilar linear densities. These are nonspecific but favor subsegmental atel ectasis. ACT 112: Negative or not required by law. Electronically signed by: Phu Almeida M.D. 01/23/2024 11:18 AM
[2024-01-23 11:46] LABS: Base Excess VBG 4.6 mEq/L; HCO3 VBG 28 mmol/L; Oxygen Saturation VBG 94.6 %; PCO2 VBG 38 mmHg (38-50); PO2 VBG 71 mmHg; pH VBG 7.48 (7.36-7.41)
--- NOTE | 2024-01-23 11:56 | CT Scan Report ---
CT head/brain wo con CLINICAL HISTORY: 74 years-old Female with AMS, not responsive to verbal stimuli. Acutely altered me ntal status TECHNIQUE: Multiple axial CT images of the head were obtained without contrast. A dose lowering tech nique was utilized adhering to the principles of ALARA. CT DOSE: 625.8 mGy.cm COMPARISON: 02/25/2023 FINDINGS: No acute intracranial hemorrhage, midline shift, intracranial mass, hydrocephalus, territorial ischem ia or abnormal extra-axial collection. Involutional changes with chronic microvascular ischemic disea se. The calvarium is intact. Benign-appearing calcifications noted along the inner table of the skull wit hin the middle cranial fossa on the left, unchanged. The paranasal sinuses, mastoid air cells, and mi ddle ear cavities are clear. IMPRESSION: No acute intracranial abnormality. ACT 112: Negative or not required by law. The above report was generated using voice recognition software. It may contain grammatical, syntax o r spelling errors. Electronically signed by: Eulogio Houston M.D. 01/23/2024 11:55 AM
--- NOTE | 2024-01-23 12:22 | Emergency Department Note ---
Impression & Plan Acute alteration in mental status ED Provider Note NAME: ESTRELLITA MCCALLUM AGE: 74 SEX: F : 1950 ARRIVES VIA: Ambulance INFORMANT: Patient, ED PROVIDER(S): Tao Fierro MD CHIEF COMPLAINT: Altered mental status HPI: This is 74-year-old female presenting for altered mental status. Patient is with both and daughter who states that over the past few months patient's had a progressive decline with worsening over the past 1 few days. Patient has been less responsive over the past few months and again abruptly worsened over the past few days/1 week. She will be somewhat forgetful, now having difficulty with feeding herself, getting out of bed. She is essentially bedbound at this point as per daughter. Patient thought that she may have sundowning but this has been more permanent and throughout the entire day not just at night. Otherwise the facility which she resides was concerned that she was more altered and unable to respond to questioning. Upon my evaluation patient does not participate in any exam, does not follow commands or respond to my questioning. She does mention that she has no pain PHYSICAL EXAMINATION: General: resting comfortably in no acute distress Head: Normocephalic and atraumatic Eyes: Normal inspection, extraocular muscles intact Ear, nose, throat: Normal external exam Neck: Normal range of motion Respiratory: lungs clear to auscultation bilaterally Cardiovascular: Regular rate/rhythm, no murmur GI: soft, nontender, no guarding or rebound Extremities: nontender, moves all extremities Neuro: Awake, does not follow my commands, moves extremities spontaneously Skin: Warm, dry, and intact MEDICAL DECISION MAKING: This is a 74-year-old female senting for altered mental status. Consider dementia, UTI, encephalopathy, stroke. Will do CT of the head to help elucidate. Symptoms been going on for multiple months with acute worsening over the past 1 week. Daughter states that patient has had worsening right sided weakness overall. -Blood was reviewed without significant leukocytosis or anemia. Electrolytes are within normal limits at this time. No creatinine elevation. No lactic acid elevation. No transaminitis. No lipase elevation. Trace leuk esterase without WBC. Low concern for acute UTI clinically. Negative viral panel -CT head negative -Chest x-ray independently interpreted by me showing mild cardiomegaly without signs of pleural effusion, pneumothorax or focal opacity -Patient does have reassuring workup at this time however still having her current symptoms. Patient care being evaluated for admission under Dr. Nguyen Differential diagnosis: Consider UTI, encephalopathy, stroke, dementia, SAH ER treatment provided: See below Diagnostics interpreted by me: ECG: ECG independently interpreted by me with normal sinus rhythm, rate of 83, normal axis, normal [place], incomplete right bundle branch block, normal QTc, no ST segment elevations consistent with STEMI criteria Cardiac Monitoring: An order was placed for continuous cardiac monitoring. The monitor shows a rate of 75 with sinus rhythm. Laboratory studies: As stated above and show below. Imaging studies: See below. Past Med/Surg History Medical History BMI 50.0-59.9, adult Urinary incontinence Chronic Overactive bladder Glaucoma Claustrophobia Osteoarthritis of knees, bilateral CAD (coronary artery disease) Cardiac cath 04/2018- mild nonobstructive CAD BPPV (benign paroxysmal positional vertigo) History of sepsis Diabetes mellitus, type 2 History of melanoma back History of right breast cancer Dx 1997- chemo/radiation/surgery Anxiety Myoclonic jerking Dr. Del Castillo EEG 04/2020: "Normal" awake and sleep EEG. No evidence of focal slowing or epileptiform activity. Ataxia uses walker Hyperlipidemia Hypertension Chronic obstructive pulmonary disease Surgical History Family history of reaction to anesthesia Daughter PONV History of right breast biopsy malignant History of cholecystectomy History of appendectomy History of colonoscopy History of Mohs micrographic surgery for skin cancer History of lumpectomy of right breast History of tooth extraction History of bilateral cataract extraction History of cardiac cath ~2017 ([facility])- no stents Family History Brother Family hx of colon cancer Father Family hx of colon cancer Sister Family history of diabetes mellitus Daughter Family history of reaction to anesthesia nausea/vomiting/migraine Mother Family history of diabetes mellitus Brother Family history of diabetes mellitus Family hx colonic polyps Social History Smoking Status: Never smoker Second Hand Exposure: No; Do You Dip or Chew Tobacco: No; Hx Alcohol Use: No Hx Substance Use: No Preferred Language: Pashto Communication Ability: Effective Student Worker Required: No Beliefs That Will Affect Care: None Current Living Situation: Spouse Current Living Situation Comment: lives at home with Feels Safe at Home: Yes Assistive Devices: Cane and Walker Allergies Allergies Allergy/AdvReac Type Severity Reaction Status Date / Time dog dander Allergy Unknown Sneezing, Verified 07/28/23 06:51 itchy eyes/throat grass pollen-perennial rye, Allergy Unknown Sneezing, Verified 07/28/23 06:51 standar itchy eyes/throat Home Meds Home Medications Medication Instructions Recorded Confirmed Lactobacillus acidophilus 10 mg PO QAM 11/03/20 01/23/24 acetaminophen 325 mg tablet 325 mg PO Q6 PRN Pain 11/03/20 01/23/24 albuterol sulfate 90 mcg/actuation 2 puff inhalation Q4H PRN 11/03/20 01/23/24 aerosol inhaler Shortness Of Breath atorvastatin 40 mg tablet 40 mg PO HS 11/03/20 01/23/24 cetirizine 10 mg tablet (Zyrtec) 10 mg PO QAM 11/03/20 01/23/24 fluticasone fur. 100 mcg-umeclid 1 inh inhalation QAM 11/03/20 01/23/24 62.5 mcg-vilant 25 mcg inhalat.powder (Trelegy Ellipta) fluticasone propionate 50 1 spray intranasal QAM 11/03/20 01/23/24 mcg/actuation nasal spray,suspension ketoconazole 2 % topical cream 1 applic topical BID PRN Skin 11/03/20 01/23/24 Irritation multivitamin 1 tab PO QAM 11/03/20 01/23/24 nystatin 100,000 unit/gram topical 1 applic topical UD PRN Rash 11/03/20 01/23/24 cream omeprazole 20 mg capsule,delayed 20 mg PO BID 11/03/20 01/23/24 release oxybutynin chloride 10 mg 10 mg PO QAM 11/03/20 01/23/24 tablet,extended release 24 hr albuterol sulfate 2.5 mg/3 mL 2.5 mg inhalation DIRECTED PRN 02/25/23 01/23/24 (0.083 %) solution for nebulization Shortness Of Breath Or Wheezing cholecalciferol (vitamin D3) 25 25 mcg PO QAM 02/25/23 01/23/24 mcg (1,000 unit) capsule (Vitamin D3) cyanocobalamin (vitamin B-12) 100 100 mcg PO QAM 02/25/23 01/23/24 mcg tablet (Vitamin B-12) divalproex 500 mg tablet,delayed 500 mg PO BID 02/25/23 01/23/24 release latanoprost 0.005 % eye drops 1 drp ophthalmic (eye) HS 02/25/23 01/23/24 metformin 500 mg tablet,extended 1,000 mg PO BID 02/25/23 01/23/24 release 24 hr ropinirole 1 mg tablet 1 mg PO HS 02/25/23 01/23/24 gabapentin 300 mg capsule 300 mg PO HS 03/28/23 01/23/24 diclofenac sodium 1 % topical gel 4 g EXT UD PRN Pain 07/06/23 01/23/24 (Voltaren Arthritis Pain) lorazepam 1 mg tablet 0.5 mg PO UD PRN Anxiety 07/06/23 01/23/24 apixaban 5 mg tablet (Eliquis) 5 mg PO BID 01/23/24 01/23/24 furosemide 40 mg tablet 40 mg PO DAILY 01/23/24 01/23/24 insulin glargine 100 unit/mL 8 unit subcut PM 01/23/24 01/23/24 subcutaneous solution insulin lispro 100 unit/mL 4 unit subcut UD 01/23/24 01/23/24 subcutaneous pen melatonin 5 mg tablet 5 mg PO HS PRN Insomnia 01/23/24 01/23/24 oxycodone 5 mg tablet 5 mg PO Q6H PRN moderate to severe 01/23/24 01/23/24 pain potassium chloride 20 mEq 20 meq PO BID 01/23/24 01/23/24 tablet,extended release Previous Rx's Medication Instructions Recorded aspirin 81 mg tablet,delayed 81 mg PO BID 42 days #0 tabs 07/31/23 release Results & Data (ED) Vital Signs Vital Signs - 24 hr 01/23/24 10:23 01/23/24 10:01/23/24 10:35 Temperature 37.6 C H Temperature Source Oral Pulse Rate 93 H 88 Pulse Rate [Right Finger] Respiratory Rate 20 Respiratory Effort / Characteristics Non-Labored Spontaneous Respiratory Depth Normal Blood Pressure 148/86 H Blood Pressure [Left Arm] Blood Pressure Mean 106 Blood Pressure Mean [Left Arm] Pulse Oximetry 92 92 Oxygen Delivery Method Room Air Room Air Oxygen Flow Rate Sepsis Recent Fever Within 48 Hours Yes Sepsis New/Unexplained Change in Mental Status Yes Sepsis Action Taken by Nursing No Action Required 01/23/24 12:23 01/23/24 14:00 01/23/24 14:34 Temperature Temperature Source Pulse Rate 75 Pulse Rate [Right Finger] 82 75 Respiratory Rate 20 22 Respiratory Effort / Characteristics Non-Labored Spontaneous Respiratory Depth Normal Blood Pressure Blood Pressure [Left Arm] 127/70 128/72 Blood Pressure Mean Blood Pressure Mean [Left Arm] 89 90 Pulse Oximetry 92 94 Oxygen Delivery Method Nasal Cannula Nasal Cannula Oxygen Flow Rate 2 2 Sepsis Recent Fever Within 48 Hours Sepsis New/Unexplained Change in Mental Status Sepsis Action Taken by Nursing Laboratory Data 01/23/24 10:23 01/23/24 10:23 Lab Results 01/23/24 01/23/24 01/23/24 Range/Units 10:23 11:30 Unknown WBC 9.81 (4.8-10.8) K/ul RBC 5.18 (4.20-5.40) M/uL Hgb 13.5 (12.0-16.0) g/dl Hct 41.1 (37.0-47.0) % MCV 79.3 L (80.0-100.0) fL MCH 26.1 (25.0-34.0) pg MCHC 32.8 (32.0-36.0) g/dL RDW Std Deviation 49.7 H (36.4-46.3) fL RDW Coeff of [place] 17.2 H (11.5-14.5) % Plt Count 177 (130-400) K/uL MPV 9.6 (9.4-12.4) fL Immature Gran % (Auto) 0.9 % Neut % (Auto) 74.2 % Lymph % (Auto) 16.4 % [place] % (Auto) 6.6 % Eos % (Auto) 1.2 % Baso % (Auto) 0.7 % Neut # (Auto) 7.27 H (1.40-6.50) K/uL Lymph # (Auto) 1.61 (1.20-3.40) K/uL [place] # (Auto) 0.65 H (0.11-0.59) K/uL Eos # (Auto) 0.12 (0.00-0.50) K/uL Baso # (Auto) 0.07 (0.00-0.20) K/uL Immature Gran # (Auto) 0.09 (0.01-0.20) K/uL VBG pH 7.48 H (7.36-7.41) VBG pCO2 38 (38-50) mmHg VBG pO2 71 mmHg VBG HCO3 28 mmol/L VBG O2 Saturation 94.6 % VBG Base Excess 4.6 mEq/L Sodium 138 (136-145) mmol/L Potassium 4.0 (3.5-5.1) mmol/L Chloride 103 (98-107) mmol/L Carbon Dioxide 27 (21-32) mmol/L Anion Gap 8 (3-11) BUN 19 (6-23) mg/dl Creatinine 0.66 (0.6-1.2) mg/dl Est Cr Clr Drug Dosing Not Reportable Est GFR ( Amer) 101.6 ml/min Est GFR (Non-Af Amer) 87.6 ml/min BUN/Creatinine Ratio 28.8 H (10-20) Glucose 119 H (70-99(Fasting)) mg/dl Lactate 1.5 (0.4-2.0) mmol/L Calcium 9.1 (8.6-10.3) mg/dl Total Bilirubin 0.4 (0.2-1.0) mg/dl AST 31 (13-39) U/L ALT 14 (7-52) U/L Alkaline Phosphatase 58 (34-104) U/L Total Protein 6.3 (6.0-8.3) gm/dl Albumin 3.3 L (3.4-5.0) gm/dl Globulin 3.0 (2.5-4.0) gm/dl Albumin/Globulin Ratio 1.1 (0.9-2) Lipase 21 (11-82) U/L Urine Color Dark Yellow Urine Appearance Cloudy A (Clear) Urine pH 5.5 (4.5-7.5) Ur Specific [place] 1.026 (1.000-1.030) Urine Protein Trace H (Negative) Urine Glucose (UA) Negative (Negative) Urine Ketones 1+ H (Negative) Urine Blood 2+ H (Negative) Urine Nitrite Negative (Negative) Urine Bilirubin Negative (Negative) Urine Urobilinogen Negative (Negative) Ur Leukocyte Esterase Trace H (Negative) Urine WBC (Auto) 0-5 (0-5) /hpf Urine RBC (Auto) >20 H (0-2) /hpf U Hyaline Cast (Auto) 0-2 (0-2) /lpf U Epithel Cells (Auto) 3-5 H (0-2) /hpf Urine Bacteria (Auto) 1+ H (None Seen) Calcium Oxalate Crystal Present A (None Prsent) Urine Yeast Present A (None Prsent) Adenovirus (PCR) Not Detected (NotDetected) B. pertussis DNA (PCR) Not Detected (NotDetected) B.parapertussis DNA PCR Not Detected (NotDetected) C. pneumoniae DNA (PCR) Not Detected (NotDetected) Coronavirus OC43 (PCR) Not Detected (NotDetected) Coronavirus HKU1 (PCR) Not Detected (NotDetected) Coronavirus 229E (PCR) Not Detected (NotDetected) SARS-CoV-2 (PCR) Not Detected (NotDetected) Coronavirus NL63 (PCR) Not Detected (NotDetected) Human Metapneumovir PCR Not Detected (NotDetected) Influenza Type A (PCR) Not Detected (NotDetected) Influenza Type B (PCR) Not Detected (NotDetected) M. pneumoniae (PCR) Not Detected (NotDetected) Parainfluenza 1 (PCR) Not Detected (NotDetected) Parainfluenza 2 (PCR) Not Detected (NotDetected) Parainfluenza 3 (PCR) Not Detected (NotDetected) Parainfluenza 4 (PCR) Not Detected (NotDetected) RSV (PCR) Not Detected (NotDetected) Entero/Rhino (PCR) Not Detected (NotDetected) Imaging Data Radiologist's Impression: Chest X-Ray 01/23/24 10:15 XR chest 1V portable HISTORY: SOB, hypoxia COMPARISON: Chest 03/28/2023. FINDINGS: No pneumothorax. There are low lung volumes with mild elevation of the right hemidiaphragm. This remains unchanged. The heart remains mildly enlarged. There are calcifications within the aortic knob. There is mild central pulmonary vascular congestion without overt edema. Bibasilar linear densities are nonspecific but favor subsegmental atelectasis. Prior cholecystectomy. No acute fractures. IMPRESSION: 1. Cardiomegaly with mild congestive change. 2. Low lung volumes and bibasilar linear densities. These are nonspecific but favor subsegmental atelectasis. ACT 112: Negative or not required by law. Electronically signed by: Phu Almeida M.D. 01/23/2024 11:[address] 01/23/24 10:43 CT head/brain wo con CLINICAL HISTORY: 74 years-old Female with AMS, not responsive to verbal stimuli. Acutely altered mental status TECHNIQUE: Multiple axial CT images of the head were obtained without contrast. A dose lowering technique was utilized adhering to the principles of ALARA. CT DOSE: 625.8 mGy.cm COMPARISON: 02/25/2023 FINDINGS: No acute intracranial hemorrhage, midline shift, intracranial mass, hydrocephalus, territorial ischemia or abnormal extra-axial collection. Involutional changes with chronic microvascular ischemic disease. The calvarium is intact. Benign-appearing calcifications noted along the inner table of the skull within the middle cranial fossa on the left, unchanged. The paranasal sinuses, mastoid air cells, and middle ear cavities are clear. IMPRESSION: No acute intracranial abnormality. ACT 112: Negative or not required by law. The above report was generated using voice recognition software. It may contain grammatical, syntax or spelling errors. Electronically signed by: Eulogio Houston M.D. 01/23/2024 11:55 AM Discharge Plan Visit Data Chief Complaint: Altered Mental Status Stated Complaint: AMS ED Provider: Tao Fierro Discharge Problem: Acute alteration in mental status Forms Stand Alone Forms: [facility] Prescriptions Prescriptions: No Action multivitamin Tablet 1 tab PO QAM atorvastatin 40 mg Tablet 40 mg PO HS acetaminophen 325 mg Tablet 325 mg PO Q6 PRN (Reason: Pain) cetirizine [Zyrtec] 10 mg Tablet 10 mg PO QAM oxybutynin chloride 10 mg Tablet Extended Release 24hr 10 mg PO QAM nystatin 100,000 unit/gram Cream 1 applic TOPICAL UD PRN (Reason: Rash) omeprazole 20 mg Capsule,Delayed Release(Dr/Ec) 20 mg PO BID Lactobacillus acidophilus Capsule 10 mg PO QAM albuterol sulfate 90 mcg/actuation Hfa Aerosol Inhaler 2 puff INHALATION Q4H PRN (Reason: Shortness Of Breath) ketoconazole 2 % Cream 1 applic TOPICAL BID PRN (Reason: Skin Irritation) fluticasone propionate 50 mcg/actuation [place],Suspension 1 spray INTRANASAL QAM Trelegy Ellipta 100-62.5-25 mcg Blister With Device 1 inh INHALATION QAM latanoprost 0.005 % drops 1 drp ophthalmic (eye) HS Patient Comments: both eyes ropinirole 1 mg tablet 1 mg PO HS cyanocobalamin (vitamin B-12) [Vitamin B-12] 100 mcg Tablet 100 mcg PO QAM albuterol sulfate 2.5 mg /3 mL (0.083 %) Solution For Nebulization 2.5 mg INHALATION DIRECTED PRN (Reason: Shortness Of Breath Or Wheezing) divalproex 500 mg tablet,delayed release (DR/EC) 500 mg PO BID metformin 500 mg tablet extended release 24 hr 1,000 mg PO BID cholecalciferol (vitamin D3) [Vitamin D3] 25 mcg (1,000 unit) Capsule 25 mcg PO QAM lorazepam 1 mg tablet 0.5 mg PO UD PRN (Reason: Anxiety) Patient Comments: per pt takes before riding in cars Rx Instructions: Take half of 1 mg tablet 3 times daily as needed for anxiety. Always try to use less of this medication to avoid confusion and fall diclofenac sodium [Voltaren Arthritis Pain] 1 % gel 4 g EXT UD PRN (Reason: Pain) aspirin 81 mg Tablet,Delayed Release (Dr/Ec) 81 mg PO BID 42 Days Qty: 0 0RF gabapentin 300 mg capsule 300 mg PO HS furosemide 40 mg tablet 40 mg PO DAILY insulin glargine 100 unit/mL Solution 8 unit SUBCUT PM insulin lispro 100 unit/mL insulin pen 4 unit SUBCUT UD Rx Instructions: 4U BID with meals melatonin 5 mg Tablet 5 mg PO HS PRN (Reason: Insomnia) Eliquis 5 mg tablet 5 mg PO BID potassium chloride 20 mEq Tablet Extended Release 20 meq PO BID oxycodone 5 mg tablet 5 mg PO Q6H PRN (Reason: moderate to severe pain) Referrals Referrals: Renny Abdi MD [Primary Care Provider] -
[2024-01-23 12:56] LABS: Appearance Urine Cloudy (Clear); Bacteria Urine Automated 1+ (None Seen); Bilirubin Urine Negative (Negative); Blood Urine 2+ (Negative); Calcium Oxalate Crystals Urine Present (None Prsent); Cast Urine Automated 0-2 /lpf (0-2); Color Urine Dark Yellow; Glucose Urine UA Negative (Negative); Ketones Urine 1+ (Negative); Leukocyte Esterase Urine Trace (Negative); Nitrite Urine Negative (Negative); Protein Urine Trace (Negative); RBC Urine Automated >20 /hpf (0-2); Specific Gravity Urine 1.026 (1.000-1.030); Urobilinogen Urine Negative (Negative); WBC Urine Automated 0-5 /hpf (0-5); pH Urine 5.5 (4.5-7.5)
--- NOTE | 2024-01-23 13:26 | History & Physical Report ---
Date of Service January 23, 2024 Assessment & Plan (1) Acute alteration in mental status: (2) Myoclonic epilepsy: (3) Chronic obstructive pulmonary disease: (4) Hypertension: (5) Hyperlipidemia: (6) Ataxia: (7) Anxiety: (8) Diabetes mellitus, type 2: (9) CAD (coronary artery disease): (10) Morbid obesity with BMI of 40.0-44.9, adult: Plan This is a 74 yo F resident of [facility] with a PMH of mild Alzheimer's dementia, DM II, dyslipidemia, COPD, nonobstructive CAD, morbid obesity, GERD, BPPV, ataxia, and other problems listed below who presents the ED for evaluation of progressively worsening confusion x 2 days. Acute metabolic encephalopathy Likely multifactorial in setting of possible infection, ? seizure and worsening dementia Myoclonic Epilepsy Follows with Dr. Del Castillo, ? seizure yesterday given rhythmic jerking of right upper extremity and left face - has experienced similar symptoms in the past Taking Depakote 500mg BID as prescribed - depakote level pending EEG ordered Seizure precautions Neuro consulted H/o Alzheimer's dementia Follows with Dr. Del Castillo - previous brain MRI from January 2023: Chronic microvascular ischemic changes. Cerebellar atrophy Repeat brain MRI today without acute intracranial abnormality. No acute or subacute infarct. Involutional changes with chronic microvascular ischemic disease redemonstrated Neuro consulted as above - was due to see in clinic today but presented to ED instead given acute AMS PT/OT consult for decreased mobility, difficulty feeding herself, etc Family agreeable to palliative consult given progressive decline over past few months Abnormal UA H/o recurrent UTI, low grade fever. Will start empiric rocephin given mentation change as above Follow urine culture DM II A1c of 6 in 12/23 Hold home agents Basal/bolus insulin while in-patient BSG AC HS Peripheral edema Takes daily lasix for edema Will hold due for now as patient appears dehydrated Reassess during admission COPD Chronic, stable. Continue home inhalers, Duonebs QID PRN SOB or wheezing On supplemental O2 in ED, not on O2 at baseline, wean as tolerated CAD Continue aspirin, statin Mood disorder Ativan 0.5mg daily PRN for anxiety. Use sparingly given age, risk for confusion Chronic pain Reduced frequency of oxycodone to Q8H due to concern for polypharmacy RLS Continue Gabapentin HS Yeast infection Diflucan x 1, Monistat cream BID DVT Ppx: Eliquis Code status: FULL PCP: Jin Dispo: Admitted to PCU Patient seen in collaboration with Dr. Nguyen. Please see addendum. I spent a total of 75 minutes coordinating, documenting, and providing care for this patient excluding time spent in the performance of separately billed services. History of Present Illness Chief Complaint: [facility] Primary Care Provider: Renny Abdi MD This is a 74 yo F resident of [facility] with a PMH of mild Alzheimer's dementia, DM II, dyslipidemia, COPD, nonobstructive CAD, morbid obesity, GERD, BPPV, ataxia, and other problems listed below who presents the ED for evaluation of progressively worsening confusion x 2 days. History primarily obtained from family at bedside as well as chart review due to patient's reduced cognitive state. Patient with known history of cognitive decline over the past year with atrophy noted in multiple places on previous brain MRI in March (daughter denies being given a Alzheimer's diagnosis at this point, had a neuro appt scheduled for today). However, since two months ago family notes progressively worsening short-term memory and responsiveness as well as inappropriate responses to questions and difficulty socializing. manager long term care memory still intact. Around the holiday, patient was able to independently get from seated to standing at the table but since then has progressed to needing a two- person assist and Amrit lift for transfers. Was evaluated at [facility] yesterday for increased confusion. At this time, also noted to have a left- sided facial droop with associated twitching of right upper extremity by daughter that seemed to resolve. Per discussion between family and provider on site, decided to keep scheduled neurology appointment for today and not present to hospital. However, overnight, patient became progressively less responsive, staring into the distance and not answering questions. Does not know where she is. Was directed by [facility] to come to ED for further evaluation of acute CVA versus acute metabolic encephalopathy versus seizure behavior. Intermittently tearful during exam, struggling with the reality that she has dementia and is likely progressing. Admits that she is having trouble following commands even though she can understand the prompt. Patient denies any chest pain, shortness of breath or abdominal pain. Remainder of ROS difficult to obtain given cognitive state. Allergies Allergy/AdvReac Type Severity Reaction Status Date / Time dog dander Allergy Unknown Sneezing, Verified 07/28/23 06:51 itchy eyes/throat grass pollen-perennial rye, Allergy Unknown Sneezing, Verified 07/28/23 06:51 standar itchy eyes/throat Home Medications Medication Instructions Recorded Confirmed Type Lactobacillus acidophilus 10 mg PO QAM 11/03/20 01/23/24 History acetaminophen 325 mg tablet 325 mg PO Q6 PRN Pain 11/03/20 01/23/24 History albuterol sulfate 90 mcg/actuation 2 puff inhalation Q4H PRN 11/03/20 01/23/24 History aerosol inhaler Shortness Of Breath atorvastatin 40 mg tablet 40 mg PO HS 11/03/20 01/23/24 History cetirizine 10 mg tablet (Zyrtec) 10 mg PO QAM 11/03/20 01/23/24 History fluticasone fur. 100 mcg-umeclid 1 inh inhalation QAM 11/03/20 01/23/24 History 62.5 mcg-vilant 25 mcg inhalat.powder (Trelegy Ellipta) fluticasone propionate 50 1 spray intranasal QAM 11/03/20 01/23/24 History mcg/actuation nasal spray,suspension ketoconazole 2 % topical cream 1 applic topical BID PRN Skin 11/03/20 01/23/24 History Irritation multivitamin 1 tab PO QAM 11/03/20 01/23/24 History nystatin 100,000 unit/gram topical 1 applic topical UD PRN Rash 11/03/20 01/23/24 History cream omeprazole 20 mg capsule,delayed 20 mg PO BID 11/03/20 01/23/24 History release oxybutynin chloride 10 mg 10 mg PO QAM 11/03/20 01/23/24 History tablet,extended release 24 hr albuterol sulfate 2.5 mg/3 mL 2.5 mg inhalation DIRECTED PRN 02/25/23 01/23/24 History (0.083 %) solution for nebulization Shortness Of Breath Or Wheezing cholecalciferol (vitamin D3) 25 25 mcg PO QAM 02/25/23 01/23/24 History mcg (1,000 unit) capsule (Vitamin D3) cyanocobalamin (vitamin B-12) 100 100 mcg PO QAM 02/25/23 01/23/24 History mcg tablet (Vitamin B-12) divalproex 500 mg tablet,delayed 500 mg PO BID 02/25/23 01/23/24 History release latanoprost 0.005 % eye drops 1 drp ophthalmic (eye) HS 02/25/23 01/23/24 History metformin 500 mg tablet,extended 1,000 mg PO BID 02/25/23 01/23/24 History release 24 hr ropinirole 1 mg tablet 1 mg PO HS 02/25/23 01/23/24 History gabapentin 300 mg capsule 300 mg PO HS 03/28/23 01/23/24 History diclofenac sodium 1 % topical gel 4 g EXT UD PRN Pain 07/06/23 01/23/24 History (Voltaren Arthritis Pain) lorazepam 1 mg tablet 0.5 mg PO DAILY PRN Anxiety 07/06/23 01/23/24 History aspirin 81 mg tablet,delayed 81 mg PO BID 42 days #0 tabs 07/31/23 01/23/24 Rx release apixaban 5 mg tablet (Eliquis) 5 mg PO BID 01/23/24 01/23/24 History furosemide 40 mg tablet 40 mg PO DAILY 01/23/24 01/23/24 History insulin glargine 100 unit/mL 8 unit subcut PM 01/23/24 01/23/24 History subcutaneous solution insulin lispro 100 unit/mL 4 unit subcut UD 01/23/24 01/23/24 History subcutaneous pen melatonin 5 mg tablet 5 mg PO HS PRN Insomnia 01/23/24 01/23/24 History oxycodone 5 mg tablet 5 mg PO Q6H PRN moderate to severe 01/23/24 01/23/24 History pain potassium chloride 20 mEq 20 meq PO BID 01/23/24 01/23/24 History tablet,extended release Past Med/Surg History Medical History (Updated 01/23/24 @ 21:07 by Lizbeth Holliday PA-C) Morbid obesity with BMI of 40.0-44.9, adult Myoclonic epilepsy Urinary incontinence Chronic Overactive bladder Glaucoma Claustrophobia Osteoarthritis of knees, bilateral CAD (coronary artery disease) Cardiac cath 04/2018- mild nonobstructive CAD BPPV (benign paroxysmal positional vertigo) History of sepsis Diabetes mellitus, type 2 History of melanoma back History of right breast cancer Dx 1997- chemo/radiation/surgery Anxiety Myoclonic jerking Dr. Del Castillo EEG 04/2020: "Normal" awake and sleep EEG. No evidence of focal slowing or epileptiform activity. Ataxia uses walker Hyperlipidemia Hypertension Chronic obstructive pulmonary disease Surgical History (Updated 01/23/24 @ 21:06 by Lizbeth Holliday PA-C) Status post left knee replacement (~07/2023) Family history of reaction to anesthesia Daughter PONV History of right breast biopsy malignant History of cholecystectomy History of appendectomy History of colonoscopy History of Mohs micrographic surgery for skin cancer History of lumpectomy of right breast History of tooth extraction History of bilateral cataract extraction History of cardiac cath ~2018 ([facility] no stents Family History Brother Family hx of colon cancer Father Family hx of colon cancer Sister Family history of diabetes mellitus Daughter Family history of reaction to anesthesia nausea/vomiting/migraine Mother Family history of diabetes mellitus Brother Family history of diabetes mellitus Family hx colonic polyps Social History Smoking Status: Never smoker Second Hand Exposure: No; Do You Dip or Chew Tobacco: No; Hx Alcohol Use: No Hx Substance Use: No Preferred Language: Swazi Communication Ability: Impaired Communication Ability Comment: Confused Wood Scrap Handler Required: No Beliefs That Will Affect Care: None Current Living Situation: Prison Current Living Situation Comment: lives at home with Other Information That Helps Us Care for You: No Feels Safe at Home: Yes Safety Concerns: Feels Safe At This Time Assistive Devices: Lift Chair Assistive Devices Comment: Pathagility Review of Systems Review of Systems: Unobtainable due to cognitive status Physical Exam Physical Exam: General Appearance: vitals as above, morbidly obese, intermittent staring, generally answered appropriately but delayed, NAD, intermittently tearful Head: normocephalic, atraumatic Eyes: normal inspection, PERRL, conjunctivae normal, anicteric sclerae ENT: external ear and nose normal, dry mucous membranes of oropharynx Neck: normal visual inspection Respiratory: normal respiratory effort, lungs clear to auscultation, no wheeze, rales, rhonchi. No accessory muscle use Cardiovascular: regular rate, rhythm, no murmur, normal peripheral pulses, no BLE edema. Vessels: no JVD Chest: normal inspection of chest Abdomen/GI: normal bowel sounds, soft, nontender, no hepatosplenomegaly Extremities/Musculoskeletal: +tubigrip on BLE, trace edema, no cyanosis or clubbing, BUE and BLE TALA 1-2/5 but noted to have some spontaneous movement of extremities during interview Neurologic: PERRL, EOMI, accommodation nl, no face palsy, no dysarthria, CN's II-XI intact bilaterally Psychiatric: A+Ox 1 (person only), delayed responses, intermittently able to answer correctly Skin: normal color, warm/dry Results & Data Results & Data Vital Signs (Past 12 Hours) Vital Signs Temp Pulse Pulse Resp BP BP Pulse Ox 01/23/24 12:23 82 20 127/70 92 01/23/24 10:35 88 01/23/24 10:23 92 01/23/24 10:23 37.6 C H 93 H 20 148/86 H 92 O2 Del Method O2 Flow Rate 01/23/24 12:23 Nasal Cannula 2 01/23/24 10:35 01/23/24 10:23 Room Air 01/23/24 10:23 Room Air Laboratory Results Short CBC 01/23/24 Range/Units 10:23 WBC 9.81 (4.8-10.8) K/ul Hgb 13.5 (12.0-16.0) g/dl Hct 41.1 (37.0-47.0) % Plt Count 177 (130-400) K/uL BMP 01/23/24 10:23 Sodium 138 Potassium 4.0 Chloride 103 Carbon Dioxide 27 BUN 19 Creatinine 0.66 Glucose 119 H Calcium 9.1 Liver Function 01/23/24 Range/Units 10:23 Total Bilirubin 0.4 (0.2-1.0) mg/dl AST 31 (13-39) U/L ALT 14 (7-52) U/L Alkaline Phosphatase 58 (34-104) U/L Albumin 3.3 L (3.4-5.0) gm/dl Urine 01/23/24 Range/Units Unknown Urine Color Dark Yellow Urine Appearance Cloudy A (Clear) Urine pH 5.5 (4.5-7.5) Ur Specific [place] 1.026 (1.000-1.030) Urine Protein Trace H (Negative) Urine Glucose (UA) Negative (Negative) Diagnostic Findings Chest X-Ray 01/23/24 10:15 XR chest 1V portable HISTORY: SOB, hypoxia COMPARISON: Chest 03/28/2023. FINDINGS: No pneumothorax. There are low lung volumes with mild elevation of the right hemidiaphragm. This remains unchanged. The heart remains mildly enlarged. There are calcifications within the aortic knob. There is mild central pulmonary vascular congestion without overt edema. Bibasilar linear densities are nonspecific but favor subsegmental atelectasis. Prior cholecystectomy. No acute fractures. IMPRESSION: 1. Cardiomegaly with mild congestive change. 2. Low lung volumes and bibasilar linear densities. These are nonspecific but favor subsegmental atelectasis. ACT 112: Negative or not required by law. Electronically signed by: Phu Almeida M.D. 01/23/2024 11:[address] 01/23/24 10:43 CT head/brain wo con CLINICAL HISTORY: 74 years-old Female with AMS, not responsive to verbal stimuli. Acutely altered mental status TECHNIQUE: Multiple axial CT images of the head were obtained without contrast. A dose lowering technique was utilized adhering to the principles of ALARA. CT DOSE: 625.8 mGy.cm COMPARISON: 02/25/2023 FINDINGS: No acute intracranial hemorrhage, midline shift, intracranial mass, hydrocephalus, territorial ischemia or abnormal extra-axial collection. Involutional changes with chronic microvascular ischemic disease. The calvarium is intact. Benign-appearing calcifications noted along the inner table of the skull within the middle cranial fossa on the left, unchanged. The paranasal sinuses, mastoid air cells, and middle ear cavities are clear. IMPRESSION: No acute intracranial abnormality. ACT 112: Negative or not required by law. The above report was generated using voice recognition software. It may contain grammatical, syntax or spelling errors. Electronically signed by: Eulogio Houston M.D. 01/23/2024 11:55 AM ECG Additional Comments: admission EKG ordered Supervising Physician Co-Signing Physician Notes I have seen and discussed the case with the collaborating advanced practitioner. I agree with the above H&P. I have reviewed and confirmed the patients medical history, the findings on physical examination, and the patients diagnosis and treatment plan with Lizbeth CRAFT and agree with the information documented. In short, Ms. Patrick is a 74 year old woman who is a resident of [facility] with a PMH of mild Alzheimer's dementia, DM II, dyslipidemia, COPD, nonobstructive CAD, morbid obesity, GERD, BPPV, ataxia, and myoclonic jerks on Depakote who presents the ED for evaluation of progressively worsening confusion x 2 days. Daughter and at bedside. Patient unable to provide history. Daughter reports progressive decline over last few months, with a more pronounced decline and reported "seizure" at [facility]. Patient has experienced rythmic jerking of right upper extremity and left face previously. This was a similar episode on Monday. This has been accompanied by minimal verbal output and communication. Patient with low grade fever and questionable UA. Labs otherwise unremarkable. GENERAL APPEARANCE: AxOx1, lethargic appearing woman, minimally communicative --"I feel terrible, but I don't know why", no acute distress. HEENT: NC, AT. MMM. EOMI, clear conjunctiva, oropharynx clear. NECK: Supple without lymphadenopathy. No stiffness or restricted ROM. HEART: Normal rate and regular rhythm, normal S1/S1, no m/r/g LUNGS: CTAB, moving air well. No crackles or wheezes are heard. ABDOMEN: Soft, nontender, nondistended with good bowel sounds heard; EXTREMITIES: bilateral compression socks in place NEUROLOGICAL: Grossly nonfocal. Alert and oriented, moving all 4 extremities. CN not formally tested but appear grossly intact. Skin: with erythema, swelling in inguinal folds, under pannus, inclusive of labia and mons : #Acute metabolic encephalopathy, ?UTI #Cerebral/Cerebellar atrophy, ?dementia #Myoclonic jerks -Empiric CTX -EEG and MRI -Neurology consult -Depakote level -Continue current depakote at this time #Abnormal UA -Hx of UTI, unable to eluciate symptoms outside of AMS; UA potentially containment however will treat empirically given hx and await culture results #Yeast infection -diffuse erythema of genitial/perineum/inguinal area, 1xfluconazole po and miconzole topical ongoing #RLS Continue requip #DMTII Insulin dependent Glargine 4U BID and SSI Rest of plan as above I spent a total of 35 minutes coordinating, documenting, and providing care for this patient excluding time spent in the performance of separately billed services. All of the aforementioned completed outside of collaborating with the assigned advanced practitioner for a full treatment plan. I have reviewed the advanced practitioner's documentation, and I agree with, and take responsibility for the plan of care
[2024-01-23 13:52] LABS: Adenovirus PCR Not Detected (NotDetected); Bordetella parapertussis PCR Not Detected (NotDetected); Bordetella pertussis PCR Not Detected (NotDetected); Chlamydia pneumoniae PCR Not Detected (NotDetected); Coronavirus 229E PCR Not Detected (NotDetected); Coronavirus CoV-2 (COVID19)PCR Not Detected (NotDetected); Coronavirus HKU1 PCR Not Detected (NotDetected); Coronavirus NL63 PCR Not Detected (NotDetected); Coronavirus OC43PCR Not Detected (NotDetected); Human Metapneumovirus PCR Not Detected (NotDetected); Influenza A PCR Not Detected (NotDetected); Influenza B PCR Not Detected (NotDetected); Mycoplasma pneumoniae PCR Not Detected (NotDetected); Parainfluenza Virus 1 PCR Not Detected (NotDetected); Parainfluenza Virus 2 PCR Not Detected (NotDetected); Parainfluenza Virus 3 PCR Not Detected (NotDetected); Parainfluenza Virus 4 PCR Not Detected (NotDetected); Respiratory Syncytial VirusPCR Not Detected (NotDetected); Rhinovirus/Enterovirus PCR Not Detected (NotDetected)
[2024-01-23] MEDS: FLUCONAZOLE 50 MG TAB PO ONE (15:36)
[2024-01-23] MEDS: cefTRIAXone SODIUM 2,000 MG in DEXTROSE 5 % MINI-B 50 ML IV ONE (15:36)
[2024-01-23] MEDS: SODIUM CHLORIDE 0.9% 1,000 ML IV SCH (15:36)
[2024-01-23] MEDS: LORazepam 0.5 MG in SYRINGE 0.25 ML IV ONE (16:53)
--- OUTSIDE RECORDS SUMMARY | 2024-01-23 18:27 | External Medical Summary | Summary of Care ---
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 0 Active nystatin 087889 UNIT/GM creamIndications:Tin ea corporis Apply To affected area for two weeks twice daily 45 g 2 12/06/2019 Active Additional Information Patient taking differently: BID PRN, Apply To affected area for two weeks twice daily, Informant: At Discharge, Reported on 04/07/2023 Pelikon Mini w/Device KitIndications:Type 2 diabetes mellitus with hemoglobin A1c goal of less than 8.0% ([facility]) Ck FS twice daily on insulin E 11.9 1 Kit 0 07/23/2021 Active Lactobacillus Oral Tablet Take 1 Tablet by mouth in the morning and 1 Tablet before bedtime. 60 Tablet 1 03/20/2023 Active Cetirizine HCl 10 MG Oral Tablet (ZyrTEC)Indications: Environmental allergies Take 1 Tablet by mouth in the morning. 90 Tablet 2 03/20/2023 Active Daily Value Multivitamin Oral Tablet Take 1 Tablet by mouth in the morning. 90 Tablet 0 03/20/2023 Active Latanoprost 0.005 % Ophthalmic Solution (Xalatan) Instill 1 Drop into both eyes at bedtime. 2.5 mL 0 03/20/2023 Active B-12 100 MCG Oral TabletIndications:B1 2 deficiency 1 tablet daily 90 Tablet 1 03/20/2023 Active Vitamin D 25 MCG (1000 UT) Oral TabletIndications:Vi tamin D deficiency 1 tablet daily 90 Tablet 1 03/20/2023 Active Divalproex Sodium 500 MG Oral Tablet Delayed Release (Depstanley TREVIZO)Indications:Myocl onic jerking TAKE 1 TABLET IN THE MORNING AND 1 TABLET BEFORE BEDTIME. 180 Tablet 1 03/20/2023 Active [employer] Rik Alexander 33GIndications:Type 2 diabetes mellitus with hemoglobin A1c goal of less than 8.0% ([facility]) Ck FS daily E11.9 100 Each 10 03/20/2023 Active Fluticasone Propionate 50 MCG/ACT Nasal Suspension (Flonase)Indications :Chronic rhinitis USE 1 SPRAY NASALLY EVERY DAY 32 g 3 03/20/2023 Active Trelegy Ellipta 100-62.5-25 MCG/ACT Aerosol Powder Breath Activated (Fluticasone-Umeclid inium-Vilanterol)Ind ications:COPD, group B, by GOLD 2017 classification ([facility]) Inhale 1 Puff by mouth in the morning. 180 Each 3 03/20/2023 Active Albuterol Sulfate (2.5 MG/3ML) 0.083% Inhalation Nebulization Solution Inhale 1 Vial via nebulizer. As directed, if needed, for shortness of breath or wheezing 0 Active rOPINIRole HCl 1 MG Oral Tablet (Requip)Indications: RLS (restless legs syndrome) Take 1 Tablet by mouth at bedtime. 90 Tablet 2 04/19/2023 Active Ketoconazole 2 % External CreamIndications:Tin ea corporis Apply topically to affected area 2 times a day. Apply to bilateral breast fold 90 g 5 05/10/2023 Active Atorvastatin Calcium 40 MG Oral Tablet (Lipitor)Indications :Type 2 diabetes mellitus with peripheral vascular disease (HCC) Take 1 Tablet by mouth at bedtime. 90 Tablet 1 06/20/2023 Active Omeprazole 20 MG Oral Capsule Delayed Release (PriLOSEC)Indication s:Gastroesophageal reflux disease without esophagitis TAKE 1 CAP BY MOUTH TWICE DAILY 1 HOUR PRIOR TO FIRST AND EVENING MEALS 180 Capsule 1 06/20/2023 Active metFORMIN HCl ER 500 MG Oral Tablet Extended Release 24 Hour (Glucophage XR) Take 2 Tablets by mouth in the morning and 2 Tablets before bedtime. 360 Tablet 1 07/11/2023 Active Gabapentin 300 MG Oral Capsule (Neurontin)Indicatio ns:RLS (restless legs syndrome) Take 1 Capsule by mouth at bedtime. 90 Capsule 3 07/11/2023 Active LORazepam 0.5 MG Oral Tablet (Ativan) Take 1 Tablet by mouth 3 times a day as needed for Agitation or Anxiety. 40 Tablet 0 08/21/2023 Active Insulin Lispro 100 UNIT/ML Injection Solution (Humalog) Inject 4 Units under the skin in the morning and 4 Units at noon and 4 Units in the evening. Inject with meals. 0 08/21/2023 Active Polyethylene Glycol 3350 17 GM/SCOOP Oral Powder (MiraLax) Take 17 g by mouth in the morning. Dissolve one heaping tablespoon in 8 ounces of water or juice.. 0 08/21/2023 Active oxyBUTYnin Chloride ER 10 MG Oral Tablet Extended Release 24 Hour (Ditropan XL) Take 1 Tablet by mouth in the morning. Do not cut, crush or chew. 0 08/21/2023 Active Insulin Glargine Solostar 100 UNIT/ML Subcutaneous Solution Pen-injector (LantSwift Identity SoloStar) Inject 8 Units under the skin at bedtime. 0 08/22/2023 Active Melatonin 5 MG Oral Tablet Take 1 Tablet by mouth at bedtime. 0 09/11/2023 Active Aspirin 81 MG Oral Tablet Delayed Release Take 1 Tablet by mouth in the morning. 0 09/20/2023 Active oxyCODONE HCl 5 MG Oral Tablet (Oxy IR) Take 1 Tablet by mouth every 6 hours as needed for Pain, Severe or Pain, Moderate. 60 Tablet 0 11/09/2023 Active Apixaban 5 MG Oral Tablet (Eliquis) Take 1 Tablet by mouth in the morning and 1 Tablet before bedtime. 0 11/24/2023 Active Potassium Chloride 20 MEQ Oral Packet (Klor-Con) Take 20 mEq by mouth in the morning and 20 mEq before bedtime. 0 12/20/2023 Active Furosemide 40 MG Oral Tablet (Lasix)Indications:P eripheral edema Take 1 Tablet by mouth in the morning. 0 12/20/2023 Active OneTouch Ultra In Vitro Strip (Glucose Blood)Indications:Ty pe 2 diabetes mellitus with hemoglobin A1c goal of less than 8.0% ([facility]) Use as directed 2 times daily E11.9 Hx hypo/hyperglycemi a. 200 Strip 3 01/10/2024 Active documented as of this encounter (statuses as of 01/22/2024) Active Problems Problem Noted Date Diagnosed Date Mild late onset Alzheimer's dementia with mood d isturbance 11/29/2023 Overview: BIMS 08/16 on 11/06/23 Acute deep vein thrombosis ( DVT) of femoral vein of left lower extremity 11/24/2023 Obesity, morbid (more than 1 00 lbs over ideal weight or BMI > 40) 11/13/2023 History of 2019 novel coronavirus disease (COVID -19) 10/30/2023 Venous insufficiency 09/20/2023 S/P TKR (total knee replacement), left 3 Slow transit constipation 08/23/2023 Medical home patient encounter 04/06/2023 Primary osteoarthritis of both knees 03/15/2023 Lesion of bone of thoracic spine 03/15/2023 Overview: 1 cm indeterminate sclerotic bone lesion in right T4 vertebral body on chest CTA from 02/25/2023. Non-emergent outpatient bone scan recommended Full code status 03/07/2023 BMI 40.0-44.9, adult 11/09/2020 Overview: Per Obesity protocol - - Myoclonic epilepsy 10/15/2020 Gastroesophageal reflux disease without esophagi tis 06/24/2020 Sensory ataxic gait 06/24/2020 COPD, group B, by GOLD 2017 classification 07/26 Overview: Noted on screening CT superintendent container terminal (current) use of insulin 05/16/2019 Type 2 diabetes mellitus with peripheral vascula r disease 05/16/2019 Elevated diaphragm 05/16/2019 History of colon polyps 05/09/2019 BPPV (benign paroxysmal positional vertigo), rig ht 04/28/2018 Coronary artery disease invo lving [place] coronary artery of [place] heart without angina pectoris 04/28/2018 Overactive bladder 12/12/2017 DM type 2 with diabetic peripheral neuropathy History of breast cancer 10/28/2016 Overview: S/p lumpectomy, XRT Arthritis of hand, degenerative 05/19/2015 Dyslipidemia, goal LDL below 100 10/06/2014 Nephrolithiasis 07/27/2014 Panic attacks 07/27/2014 Type 2 diabetes mellitus wit h hemoglobin A1c goal of less than 8.0% 05/28/2014 Overview: 05/10/14 a1c 9.4 @[facility]. documented as of this encounter (statuses as of 01/22/2024) Resolved Problems Problem Noted Date Diagnosed Date Resolved Date Diarrhea 06/17/2021 03/15/2023 Hypotension due to hypovolemia 06/17/2021 03/15/2023 Dehydration 06/17/2021 03/15/2023 Morbid obesity with BMI of 40.0-44.9, adult 11/12/2018 11/12/2020 Overview: Per Obesity protocol #1 - Body mass index (BMI) of 45. 0 to 49.9 in adult 07/03/2017 11/15/2018 Overview: Per Obesity protocol #1 Tubular adenoma of colon 12/24/201405/2019 Acute pyelonephritis 07/27/2014 016 Overview: 06/15 [facility] ER +sepss Blood cx neg D/c on omnicef. Well adult exam 05/28/2014 09/20/2023 Overview: 02/25/23 CTA chest-1cm scletotic T4 lesion BONE SCAN no uptake. Need eval fatty liver/ update EKG. [facility] did not have on file. 05/22 EEG 72h WNL. EMG--This electrodiagnostic study is suggestive of a mild right median neuropathy at the wrist (carpal tunnel syndrome). There is no convincing electrodiagnostic evidence of a large fiber polyneuropathy. There is no electrophysiological evidence of a myopathy. 04/18 [facility] cardiac cath moderate disease small vessels, not stentable. . +borderline stress echo. EF 55-60. Mild LVH. Gr byrd dys. 10/[address] 06/16 repeat mammo/US ordered 12/14 Dr Barragan. 2 tubular adenoma <1cm Daughter Jennifer Winkler 06/15 [facility] ER ?pyelo. +powell sens E Coli documented as of this encounter (statuses as of 01/22/2024) Immunizations Name Administration Dates Next Due Pneumococcal Conjugate Vacc, 13 Valent (Prevnar) 04/26/2016 Pneumococcal Polysaccharide PPV23 (Pneumovax) ,02/10/2015 Seasonal Influenza, Quadrivalent Hd (Fluzone Hd) 06/16/2022,07/08/2021 Seasonal Influenza, Quadrivalent, No Preserve, I M 09/11/2015 Seasonal Influenza, Split, IIV3, With Preserve, Inj 05/26/2014 TDAP (age 10 and older)(Boostrix) 05/28/2014 Varicella Zoster Vaccine (Adult) 09/11/2015 documented as of this encounter Social History Tobacco Use Types Packs/Day Years Used Date Smoking Tobacco: Former Cigarettes 1 50 0 10/23/1960 - 10/23/2010 Smokeless Tobacco: Never Alcohol Use Standard Drinks/Week Comments No 0 (1 standard drink = 0.6 oz pur e alcohol) PHQ-2 Answer Date Recorded PHQ-2 Score 0 08/07/2018 Hunger Vital Sign Answer Date Recorded Within the past 12 months, y ou worried that your food would run out before you got the money to buy more. Never true 12/15/19 24 Within the past 12 months, t he food you bought just didn't last and you didn't have money to get more. Never true 12/15/2023 Sex and Gender Information Value Date Recorded Sex Assigned at Not on file Gender Identity Not on file Sexual Orientation Not on file Job Start Date Occupation Industry Not on file Not on file Not on file documented as of this encounter Plan of Treatment Upcoming Encounters Date Type Department Care Team (Late st Contact Info) Description 01/23/2024 1:00 PM EDT Office Visit [facility]endo[facility] [address] [place] [address] Nickolas Del Castillo, DO [address] [facility] [place] [id number] Health Maintenance Due Date Last Done Comments Zoster Vaccines (2 of 3) 11/06/2015 09/11/2015 Mammogram 06/07/2018 06/07/2017, 11/2015, 06/23/2015, Additional history exists Depression Screening 04/10/2019 04/10/2018 COLONOSCOPY-EVERY 5 YRS AGES 18-100 12/20/2019 12/19/2014 Diabetic Foot Exam 12/23/2021 12/23/2020, 0 10/28/2016, 09/11/2015, Additional history exists Albumin/Creatinine Ratio 07/08/2022 021, 06/23/2020, 07/05/2019, Additional history exists Diabetic Eye Exam 01/21/2023 01/21/2022, , 09/04/2018, Additional history exists DXA Scan 01/31/2023 02/01/2016 COVID-19 Vaccine ( - season) 2023 DTaP,Tdap,and Td Vaccines (2 - Td or Tdap) 05/28/2024 05/28/2014 Influenza Vaccine (FLU shot) (Season Ended) 2024 06/16/2022, 07/08/2021, 09/11/2015, Additional history exists HbA1c 06/26/2024 12/25/2023, 04/0 03/2022, 06/17/2021, Additional history exists O2 ASSESSMENT COMPLETED IN PAST YEAR FOR COPD 07/11/2024 07/11/2023 GFR 12/24/2024 12/25/2023, 11/30, 10/31/2023, Additional history exists Alpha-1 Antitrypsin Completed 03/12/2020 Pneumococcal Vaccine: 65+ Years Completed 07/08/2021, 04/26/2016, 02/10/2015 Lung Cancer Screening Completed 07/30/2021 , 07/20/2020, 07/17/2019, Additional history exists GARDASIL-HPV IMMUNIZATION SERIES Aged Out No longer eligible based on patient's age to complete this topic Hepatitis B Aged Out No longer eligi ble based on patient's age to complete this topic MENINGOCOCCAL (MENACTRA/MENVEO) Aged Out No longer eligible based on patient's age to complete this topic documented as of this encounter Medical Devices Implanted Type Area Hyperbaric Technologist Device Identifier Shelf Expiration Date Model / Serial / Lot Lens Intraoc 21.0 - [id number] - [id number] Implanted:Qty: 1 on 12/27/2018 by Santiago Gill MD at OR [facility] Left: Eye [employer]USCH [employer] LOMB 03/01/2023 [id number] / [id number] / [id number] Lens Intraoc 21.5 - [id number] - [id number] Implanted:Qty: 1 on 01/15/2019 by Santiago Gill MD at OR [facility] Right: Eye BA[employer]CH [employer] LOMB 08/01/2023 [id number] / [id number] / documented as of this encounter Visit Diagnoses Diagnosis Declining functional status- Primary Debility, unspecified Cerebral atrophy (HCC) Cerebral degeneration, unspecified Cerebellar atrophy (HCC) Cerebral degeneration, unspecified 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
--- OUTSIDE RECORDS SUMMARY | 2024-01-23 18:28 | External Medical Summary | Summary of Care ---
Author Name Unknown Organization [facility] Address [address] [place] [address] Phone [phone] Care Team Providers Care Electrical Transmission Engineer Name Role Phone Renny Abdi MD Primary Care Provider + Reason for Visit * Reason Onset Date Comments Custodial Visit 12/26/2023 Encounter Details Date Type Department Care Team (Latest Contact Info) Description 12/25/2023 9:30 AM EDT Custodial Visit [facility] [address] [place] [address] Kindra Pitts PA-C [address] [place] [address] Monilial rash*; Dry skin; Acute deep vein thrombosis (DVT) of femoral vein of left lower extremity (HCC); DM type 2 with diabetic peripheral neuropathy (HCC) Allergies No known active allergiesdocumented as of this encounter (statuses as of 12/26/2023) Medications Medication Sig Dispensed Refills Start Date End Date Status Insulin Syringe-Needle U-100 (BD INSULIN SYR ULTRAFINE II) 31G X 5/16" 1 ML MISCIndications:Type 2 diabetes mellitus with hemoglobin A1c goal of less than 8.0% ([facility]),DM type 2 nursing care encounter ([facility]) use with insulin twice daily [address] 09/11/2018 Active Acetaminophen 325 MG Oral Tablet Take 1 Tablet by mouth every 6 hours as needed for Pain. 0 Active nystatin 029261 UNIT/GM creamIndications:Tin ea corporis Apply To affected area for two weeks twice daily 45 g 2 12/06/2019 Active Additional Information Patient taking differently: BID PRN, Apply To affected area for two weeks twice daily, Informant: At Discharge, Reported on 04/07/2023 drchrono Mini w/Device KitIndications:Type 2 diabetes mellitus with hemoglobin A1c goal of less than 8.0% ([facility]) Ck FS twice daily on insulin E [...] Sodium 500 MG Oral Tablet Delayed Release (Depakote DR)Indications:Myocl onic jerking TAKE 1 TABLET IN THE MORNING AND 1 TABLET BEFORE BEDTIME. 180 Tablet 1 03/20/2023 Active [employer]ookh[employer]h Rik Alexander 33GIndications:Type 2 diabetes mellitus with hemoglobin A1c goal of less than 8.0% ([facility]) Ck FS daily E11.9 100 Each 10 03/20/2023 Active Fluticasone Propionate 50 MCG/ACT Nasal Suspension (Flonase)Indications :Chronic rhinitis USE 1 SPRAY NASALLY EVERY DAY 32 g 3 03/20/2023 Active Trelegy Ellipta 100-62.5-25 MCG/ACT Aerosol Powder Breath Activated (Fluticasone-Umeclid inium-Vilanterol)Ind ications:COPD, group B, by GOLD 2017 classification ([facility]) Inhale 1 Puff by mouth in the morning. 180 Each 3 03/20/2023 Active Albuterol Sulfate (2.5 MG/3ML) 0.083% Inhalation Nebulization Solution Inhale 1 Vial via nebulizer. As directed, if needed, for shortness of breath or wheezing 0 Active OneTouch Ultra In Vitro Strip (Glucose Blood)Indications:Ty pe 2 diabetes mellitus with hemoglobin A1c goal of less than 8.0% (HCC) Use as directed 2 times daily E11.9 Hx hypo/hyperglycemi a. 200 Strip 3 04/17/2023 Active rOPINIRole HCl 1 MG Oral Tablet [...] Glargine Solostar 100 UNIT/ML Subcutaneous Solution Pen-injector (Lantus SoloStar) Inject 8 Units under the skin [...] mouth in the morning. 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) use of insulin 05/16/2019 Type 2 diabetes mellitus with peripheral vascula r disease 05/16/2019 Elevated diaphragm 05/16/2019 History of colon polyps 05/09/2019 BPPV (benign paroxysmal positional vertigo), rig ht 04/28/2018 Coronary artery disease invo lving [place] coronary artery of [place] heart without angina pectoris 04/28/2018 Overactive bladder 12/12/2017 DM type 2 with diabetic peripheral neuropathy History of breast cancer 10/28/2016 Overview: S/p lumpectomy, XRT Arthritis of hand, degenerative 05/19/2015 Dyslipidemia, goal LDL below 100 10/06/2014 Nephrolithiasis 07/27/2014 Panic attacks 07/27/2014 Type 2 diabetes mellitus wit h hemoglobin A1c goal of less than 8.0% 05/28/2014 Overview: 05/10/14 a1c 9.4 @[facility]. documented as of this encounter (statuses as of 12/26/2023) Resolved Problems Problem Noted Date Diagnosed Date [...] Acute pyelonephritis 07/27/2014 016 Overview: 06/15 [facility] ER +sepss Blood cx neg D/c on omnicef. Well adult exam 05/28/2014 09/20/2023 Overview: 02/25/23 CTA chest-1cm scletotic T4 lesion BONE SCAN no uptake. Need eval fatty liver/ update EKG. [facility] did not have on file. 05/22 EEG 72h WNL. EMG--This electrodiagnostic study is suggestive of a mild right median neuropathy at the wrist (carpal tunnel syndrome). There is no convincing electrodiagnostic evidence of a large fiber polyneuropathy. There is no electrophysiological evidence of a myopathy. 04/18 [facility] cardiac cath moderate disease small vessels, not stentable. . +borderline stress echo. EF 55-60. Mild LVH. Gr byrd dys. 10/[address] 06/16 repeat mammo/US ordered 12/14 Dr Barragan. 2 tubular adenoma <1cm Daughter Jennifer Winkler 06/15 [facility] ER ?pyelo. +powell sens E Coli documented as of this encounter (statuses as of 12/26/2023) Immunizations Name Administration Dates Next Due Pneumococcal [...] Visit Neurology [facility]endo[facility] [address] [place] [address] Nickolas Del Castillo, DO [address] [facility] [place] [address] Health Maintenance Due Date Last Done Comments [...] DXA Scan 01/31/2023 02/01/2016 COVID-19 Vaccine ( season) 2023 Influenza Vaccine (FLU shot) (#1) 2023 06/16/2022, 07/08/2021, 09/11/2015, Additional history exists DTaP,Tdap,and Td Vaccines (2 - Td or Tdap) 05/28/2024 05/28/2014 HbA1c 06/26/2024 12/25/2023, 04/0 03/2022, 06/17/2021, Additional history exists O2 ASSESSMENT COMPLETED IN PAST YEAR FOR COPD 07/11/2024 07/11/2023 GFR 12/24/2024 12/25/2023, 11/30, 10/31/2023, Additional history exists Alpha-1 Antitrypsin Completed 03/12/2020 Pneumococcal Vaccine: 65+ Years Completed 07/08/2021, 04/26/2016, 02/10/2015 LUNG CANCER SCREENING - USE SMARTSET [id number] Completed 07/30/2021, 07/20/2020, 07/17/2019, Additional history exists GARDASIL-HPV IMMUNIZATION SERIES Aged Out No longer eligible based on patient's age to complete this topic Hepatitis B Aged Out No longer eligi ble based on patient's age to complete this topic MENINGOCOCCAL (MENACTRA/MENVEO) Aged Out No longer eligible based on patient's age to complete this topic documented as of this encounter Medical Devices Implanted Type Area Combination Building Inspector Device Identifier Shelf Expiration Date Model / Serial / Lot Lens Intraoc 21.0 - [id number] - [id number] Implanted:Qty: 1 on 12/27/2018 by Santiago Gill MD at OR [facility] Left: Eye [employer]OM[employer] 03/01/2023 [id number] / [id number] / [id number] Lens Intraoc 21.5 - [id number] - [id number] Implanted:Qty: 1 on 01/15/2019 by Santiago Gill MD at OR [facility] Right: Eye BAUSCH [employer] LOMB 08/01/2023 [id number] / [id number] / documented as of this encounter Visit Diagnoses Diagnosis Monilial rash- Primary Candidiasis of skin and nails Dry skin Other specified disease of sebaceous glands Acute deep vein thrombosis (DVT) of femoral vein of left lower extremity (HCC) DM type 2 with diabetic peripheral neuropathy (HCC) Type II or unspecified type diabetes mellitus with neurological manifestations, not stated as uncontrolled documented in this encounter Advance Directives Healthcare Agents on File Name Relationship Healthcare Agent Relationshi p Communication Gene [place] Spouse Health Care Repr esentative (appointed verbally by patient or by statute hierarchy) Care Teams Electrical Transmission Engineer Relationship Specialty Start Date End Date Renny Abdi MD [address] [place] [place] [address] PCP - General Family Medicine 10/06/14 documented as of this encounter
--- OUTSIDE RECORDS SUMMARY | 2024-01-23 18:28 | External Medical Summary | Summary of Care ---
Author Name Unknown Organization [facility] Address [address] [place] [address] Phone [phone] Care Team Providers Care Olive Knocker Name Role Phone Renny Abdi MD Primary Care Provider + Reason for Visit * Reason Onset Date Comments Long Term Visit 01/09/2024 Encounter Details Date Type Department Care Team (Latest Contact Info) Description 01/04/2024 8:30 AM EDT Long Term Visit [facility] [address] [place] [address] Kindra Pitts PA-C [address] [place] [address] Deep tissue injury*; Loss of weight; Acute deep vein thrombosis (DVT) of femoral vein of left lower extremity (HCC); DM type 2 with diabetic peripheral neuropathy (HCC) Allergies No known active allergiesdocumented as of this encounter (statuses as of 01/09/2024) Medications Medication Sig Dispensed Refills Start Date End Date Status Insulin Syringe-Needle U-100 (BD INSULIN SYR ULTRAFINE II) 31G X 5/16" 1 ML MISCIndications:Type 2 diabetes mellitus with hemoglobin A1c goal of less than 8.0% ([facility]),DM type 2 nursing care encounter ([facility]) use with insulin twice daily [address] 09/11/2018 Active Acetaminophen 325 MG Oral Tablet Take 1 Tablet by mouth every 6 hours as needed for Pain. 0 Active nystatin [id number] UNIT/GM creamIndications:Tin ea corporis Apply To affected area for two weeks twice daily 45 g 2 12/06/2019 Active Additional Information Patient taking differently: BID PRN, Apply To affected area for two weeks twice daily, Informant: At Discharge, Reported on 04/07/2023 [employer] Mini w/Device KitIndications:Type 2 diabetes mellitus with hemoglobin A1c goal of less than 8.0% ([facility]) Ck FS twice daily on insulin E [...] BEFORE BEDTIME. 180 Tablet 1 03/20/2023 Active OurHousehitesh Rik Alexander 33GIndications:Type 2 diabetes mellitus with hemoglobin A1c goal of less than 8.0% ([facility]) Ck FS daily E11.9 100 Each 10 03/20/2023 Active Fluticasone Propionate 50 MCG/ACT Nasal Suspension (Flonase)Indications :Chronic rhinitis USE 1 SPRAY NASALLY EVERY DAY 32 g 3 03/20/2023 Active Trelegy Ellipta 100-62.5-25 MCG/ACT Aerosol Powder Breath Activated (Fluticasone-Umeclid inium-Vilanterol)Ind ications:COPD, group B, by GOLD 2017 classification ([facility]) Inhale 1 Puff by mouth in the [...] as of this encounter (statuses as of 01/09/2024) Active Problems Problem Noted Date Diagnosed Date [...] classification 07/26 Overview: Noted on screening CT [facility] (current) use of insulin 05/16/2019 Type 2 diabetes mellitus with peripheral vascula r disease 05/16/2019 Elevated diaphragm 05/16/2019 History of colon polyps 05/09/2019 BPPV (benign paroxysmal positional vertigo), rig ht 04/28/2018 Coronary artery disease invo lving [place] coronary artery of [place] heart without angina pectoris 04/28/2018 Overactive bladder 12/12/2017 DM type 2 with diabetic peripheral neuropathy History of breast cancer 10/28/2016 Overview: S/p lumpectomy, XRT Arthritis of hand, degenerative 05/19/2015 Dyslipidemia, goal LDL below 100 10/06/2014 Nephrolithiasis 07/27/2014 Panic attacks 07/27/2014 Type 2 diabetes mellitus wit h hemoglobin A1c goal of less than 8.0% 05/28/2014 Overview: 05/10/14 a1c 9.4 @[facility]. documented as of this encounter (statuses as of 01/09/2024) Resolved Problems Problem Noted Date Diagnosed Date [...] 12/24/201405/2019 Acute pyelonephritis 07/27/2014 016 Overview: 06/15 [facility] ER +sepss Blood cx neg D/c on omnicef. Well adult exam 05/28/2014 09/20/2023 Overview: 02/25/23 CTA chest-1cm scletotic T4 lesion BONE SCAN no uptake. Need eval fatty liver/ update EKG. [facility] did not have on file. 05/22 EEG 72h WNL. EMG--This electrodiagnostic study is suggestive of a mild right median neuropathy at the wrist (carpal tunnel syndrome). There is no convincing electrodiagnostic evidence of a large fiber polyneuropathy. There is no electrophysiological evidence of a myopathy. 04/18 [facility] cardiac cath moderate disease small vessels, not stentable. . +borderline stress echo. EF 55-60. Mild LVH. Gr byrd dys. 10/[address] 06/16 repeat mammo/US ordered 12/14 Dr Barragan. 2 tubular adenoma <1cm Daughter Jennifer Winkler 06/15 [facility] ER ?pyelo. +powell sens E Coli documented as of this encounter (statuses as of 01/09/2024) Immunizations Name Administration Dates Next Due Pneumococcal [...] on file documented as of this encounter Progress Notes * Kindra Pitts PA-C - 01/09/2024 1:40 PM EDT Name: Criselda Patrick Date of :1950 TRANSITION EVENT: Type: Non-applicable Date: January 03 Code Status: Full Code This note pertains to care provided at [facility]. Please see facility medical record for original note. This note is not to be edited or addended in [employer]. Editing or addending needs to occur in the facilities medical record. Subjective: Criselda Patrick is a 73 year old female. Patient being seen for two issues Chief Complaint Patient presents with Long Term Visit HPI: I was asked to assess pt for purplish nontender area along coccyx. Noted by staff. Pt wasn't aware that this was present. Pt denies falling but states "I could have just sat down hard". No new soaps, medications, detergents, etc. No open area. Pt is very sedentary. Not incontinent. Pt noted to have 8 pound weight loss over past month. Pt is very sedentary. She did have a decreased oral intake over past month due to some depression symptoms over having be LTC in SNF. She has refused psychiatry consult and was tried on SSRIs in the past but had them discontinued due to adverse effects. Pt's mood has improved over past week or so. She is now more accepting that she is her assisted. No suicidal thoughts or plans. Pt is also having lymphedema wrappings due to venous insufficiency and there has been some decreased swelling in LE's. Vital signs stable. CBC Results: Results for orders placed or performed in visit on 12/05/23 CBC Result Value Ref Range WBC 7.77 4.00 - 10.80 K/uL RBC 4.56 3.85 - 5.15 M/uL HGB 12.0 12.0 - 15.3 g/dL HCT 38.1 36.0 - 45.2 % MCV 83.6 81.5 - 97.5 fL MCH 26.3 27.0 - 34.0 pg MCHC 31.5 32.0 - 36.0 g/dL RDW 18.9 11.5 - 15.5 % PLT 199 140 - 400 K/uL MPV 9.9 6.6 - 11.1 fL nRBCs 0 <=0 /100 WBCs Hemoglobin Results: Lab Results Component Value Date/Time HGB 12.0 12/05/2023 08:34 AM HGB 14.1 11/22/2023 03:24 PM HGB 12.7 10/31/2023 06:35 AM HGB 12.8 03/28/2023 12:00 AM Basic Panel Results: Results for orders placed or performed in visit on 12/25/23 BASIC METABOLIC PANEL Result Value Ref Range BUN 10 6 - 20 mg/dL Creatinine 0.7 0.5 - 1.0 mg/dL Estimated Glomerular Filtration Rate >90 >=60 mL/min Sodium 139 135 - 146 mmol/L Potassium 4.2 3.5 - 5.1 mmol/L Chloride 101 98 - 107 mmol/L CO2 28 22 - 32 mmol/L Anion Gap 10 7 - 15 mmol/L Glucose 129 (H) 70 - 120 mg/dL Calcium 8.9 8.4 - 10.2 mg/dL Creatinine Results: Lab Results Component Value Date/Time CREATININE - [facility] 0.7 12/25/2023 05:28 AM CREATININE - [facility] 0.6 12/18/2023 05:38 AM CREATININE - [facility] 0.6 10/31/2023 06:35 AM CREATININE - [facility] 0.7 06/23/2020 09:38 AM CREATININE - [facility] 0.7 12/06/2019 10:27 AM CREATININE - [facility] 0.7 07/05/2019 08:37 AM CREATININE, RANDOM URINE - [facility] 211 07/08/2021 01:54 PM CREATININE, RANDOM URINE - [facility] 65 06/23/2020 09:38 AM CREATININE, RANDOM URINE - [facility] 66 07/05/2019 08:37 AM CREATININE, RANDOM URINE - [facility] 70 06/26/2018 08:36 AM CREATININE-OUTSIDE LAB 0.47 (A) 03/28/2023 12:00 AM CREATININE-OUTSIDE LAB 0.71 04/20/2018 12:00 AM CREATININE-OUTSIDE LAB 0.94 05/09/2014 12:00 AM Potassium Results: Lab Results Component Value Date/Time POTASSIUM - [facility] 4.2 12/25/2023 05:28 AM POTASSIUM - [facility] 4.5 12/18/2023 05:38 AM POTASSIUM - [facility] 3.8 10/31/2023 06:35 AM POTASSIUM - [facility] 4.4 06/23/2020 09:38 AM POTASSIUM - [facility] 4.8 12/06/2019 10:27 AM POTASSIUM - [facility] 4.8 07/05/2019 08:37 AM POTASSIUM-[facility]IDE [facility] 140 03/28/2023 12:00 AM POTASSIUM-OUTSIDE LAB 3.9 04/20/2018 12:00 AM POTASSIUM-OUTSIDE LAB 3.8 05/09/2014 12:00 AM Sodium Results: Lab Results Component Value Date/Time SODIUM - [facility] 139 12/25/2023 05:28 AM SODIUM - [facility] 138 12/18/2023 05:38 AM SODIUM - [facility] 139 10/31/2023 06:35 AM SODIUM - [facility] 141 06/23/2020 09:38 AM SODIUM - [facility] 141 12/06/2019 10:27 AM SODIUM - [facility] 139 07/05/2019 08:37 AM TSH Results: Lab Results Component Value Date/Time TSH - [facility] 5.16 (H) 09/20/2023 05:29 AM TSH - [facility] 2.33 06/01/2015 10:56 AM Hemoglobin AIC Results: Lab Results Component Value Date/Time HEMOGLOBIN A1C - [facility] 6.0 (H) 12/25/2023 05:28 AM HEMOGLOBIN A1C - [facility] 5.6 01/05/2022 09:40 AM HEMOGLOBIN A1C - [facility] 5.8 (H) 06/17/2021 12:36 PM HEMOGLOBIN A1C - [facility] 5.8 (H) 06/23/2020 09:38 AM HEMOGLOBIN A1C - [facility] 5.5 07/05/2019 08:37 AM HEMOGLOBIN A1C - [facility] 5.6 10/31/2018 12:10 PM Patient Active Problem List Diagnosis Code Type 2 diabetes mellitus with hemoglobin A1c goal of less than 8.0% ([facility]) E11.9 Nephrolithiasis N20.0 Panic attacks F41.0 Dyslipidemia, goal LDL below 100 E78.5 Arthritis of hand, degenerative M19.049 History of breast cancer Z85.3 DM type 2 with diabetic peripheral neuropathy ([facility]) E11.42 Overactive bladder N32.81 BPPV (benign paroxysmal positional vertigo), right H81.11 Coronary artery disease involving [place] coronary artery of [place] heart without angina pectoris I25.10 History of colon polyps 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 ([facility]) Z79.4 Type 2 diabetes mellitus with peripheral vascular disease ([facility]) E11.51 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 COPD, group B, by GOLD 2017 classification ([facility]) J44.9 Gastroesophageal reflux disease without esophagitis K21.9 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[facility]) G40.409 BMI 40.0-44.9, adult ([facility]) Z68.41 Full code status Z78.9 Primary osteoarthritis of both knees M17.0 Lesion of bone of thoracic spine M89.9 Medical home patient encounter Z00.8 S/P TKR (total knee replacement), left Z96.652 Slow transit constipation K59.01 Venous insufficiency I87.2 History of 2019 novel coronavirus disease (COVID-19) Z86.16 Obesity, morbid (more than 100 lbs over ideal weight or BMI > 40) ([facility]) E66.01 Acute deep vein thrombosis (DVT) of femoral vein of left lower extremity ([facility]) I82.412 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 ([facility]) G30.1, F02.A3 Past Medical History: Diagnosis Date Acute pyelonephritis 07/27/201406/15 [facility] ER Arthritis of hand, degenerative 05/19/2015 BPPV (benign paroxysmal positional vertigo), right 04/28/2018 Coronary artery disease involving [place] coronary artery of [place] heart without angina pectoris 04/28/2018 DM type 2, goal A1C below 8.0 05/28/2014 Dyslipidemia, goal LDL below 100 10/06/2014 Elevated diaphragm 05/16/2019 Gastroesophageal reflux disease without esophagitis 06/24/2020 History of breast cancer 1998 Nephrolithiasis 07/27/2014 Other and unspecified hyperlipidemia 10/06/2014 Overactive bladder 12/12/2017 Panic attacks 07/27/2014 Sensory ataxic gait 06/24/2020 Tubular adenoma of colon 12/24/2014 Past Surgical History: Procedure Laterality Date CARDIAC CATH SCANNED RESULT 04/20/2018 [facility]. no severe CAD COLONOSCOPY, DIAGNOSTIC (RECTUM) 12/19/2014 adenomatous polyp, diverticulosis, repeat 5 yrs/[facility] MISCELLANEOUS ORDER ([facility] ONLY) Right 1997 lumpectomy right breast cancer [place] ARTHRP KNE CONDYLE&PLATU MEDIAL&LAT COMPARTMENTS Left 07/28/2023 TKA left, Dr Taylor [facility] REMOVE CATARACT, INSERT LENS PROSTH Left 12/27/2018 left EXTRACAPSULAR CATARACT REMOVAL WITH INTRAOCULAR LENS performed by Santiago Gill MD at [facility] REMOVE CATARACT, INSERT LENS PROSTH Right 01/15/2019 right EXTRACAPSULAR CATARACT REMOVAL WITH INTRAOCULAR LENS performed by Santiago Gill MD at OR [facility] Family History Problem Relation Age of Onset Colon cancer Brother 57 Heart attack Brother 63 . 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 Tobacco Use Smoking status: Former Current packs/day: 0.00 Average packs/day: 1 pack/day for 50.0 years (50.0 ttl pk-yrs) Types: Cigarettes Start date: 10/23/1960 Quit date: 10/23/2010 Years since quittin.2 Smokeless tobacco: Never Vaping Use Vaping Use: Never used Substance and Sexual Activity Alcohol use: No Drug use: No Sexual activity: Yes Partners: Male Other Topics Concern Not on file Social History 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 Please refer to MAR in the facility's medical record forthe most up-to-date medication list as this cannot be edited in [employer]. Review of Systems: Constitutional ROS: + change in weight, less weakness, less fatigue and No fevers, sweats, or chills Nose ROS: No nasal stuffiness and No significant epistaxis Mouth/Throat ROS: No thrush or No sore throat Neck ROS: No lumps or masses, No swollen glands, No recent swelling in thyroid area and No significant pain in neck Pulmonary ROS: No cough, sputum, or hemoptysis, No wheezing, No shortness of breath and No recent change in breathing Cardiovascular ROS: No chest pain, No shortness of breath, No edema, No palpitations and No syncope Gastrointestinal ROS: No abdominal pain, No change in bowel habits, No significant change in appetite, No nausea, vomiting, diarrhea, or constipation and No dysphagia Musculoskeletal/Extremities ROS: see HPI Skin/Integumentary ROS: No rash and No itching Neurologic ROS: No headaches and No seizures Psychiatric ROS: +depression, No anxiety and No psychosis Sleep: No sleep disorders OBJECTIVE: PHYSICALEXAM: I reviewed the most recent facilities vitals. General: alert, no distress, well nourished and well developed Eye Exam: Conjunctiva are pink and non-injected, sclera clear Nose: no mucosal erythema, no mucosal edema, no purulent discharge Oropharynx: no exudate, no erythema, lips, buccal mucosa, and tongue normal and mucous membranes are moist Neck: supple, no adenopathy, non-tender, neck veins flat, trachea midline Heart: regular rate & rhythm, no murmurs and no gallops Lungs: normal respiratory rate and rhythm, no chest wall tenderness, lungs clear to auscultation Abdomen: abdomen soft, obese,non-tender, normal bowel sounds and no masses or organomegaly Extremities: less edema, no clubbing, no cyanosis Neuro Exam: alert & oriented x 3 with fluent speech, no focal motor/sensory deficits Skin: skin color, texture, turgor are normal, deep tissue type area coccyx. No open area ASSESSMENT: Deep tissue injury (Primary) Silicone border dressing Change as directed Loss of weight Weight loss most likely due to decreased oral intake due to being depressed Pt appears less depressed and has been eating better. brings in food from outside and pt eats this Weight loss could be due to effect of compression dressings to LEs. Will follow weights closely Acute deep vein thrombosis (DVT) of femoral vein of left lower extremity (HCC) Continue Eliquis 5mg BID DM type 2 with diabetic peripheral neuropathy (HCC) Stable glucoses Continue Metformin 1000mg bid Continue Lantus 8 units HS and Lispro 4 units AC PLAN: Reviewed CBC, BMP, Lytes A1C and Continue present medication(s):as ordered. [facility] Home Treatment Given: as above Electronically signed by: Kindra Pitts PA-C Over 35 minutes were spent in this visit more than half the time was spent counselling or coordinating care. documented in this encounter Plan of Treatment Upcoming Encounters Date Type Department Care Team (Late st Contact Info) Description 01/23/2024 1:00 PM EDT Office Visit Neurology [facility] [place] [address] [place] [address] Nickolas Del Castillo, DO [address] [place] [address] Health Maintenance Due Date Last Done Comments [...] 01/31/2023 02/01/2016 COVID-19 Vaccine ( season) 2023 DTaP,Tdap,and Td Vaccines (2 - [...] 02/10/2015 LUNG CANCER SCREENING - USE SMARTSET [id number] Completed 07/30/2021, 07/20/2020, 07/17/2019, Additional history exists [...] this encounter Medical Devices Implanted Type Area Rivet Catcher Device Identifier Shelf Expiration Date Model / Serial / Lot Lens Intraoc 21.0 - [id number] - [id number] Implanted:Qty: 1 on 12/27/2018 by Santiago Gill MD at OR [facility] Left: Eye [employer] 03/01/2023 [id number] / [id number] / [id number] Lens Intraoc 21.5 - [id number] - [id number] Implanted:Qty: 1 on 01/15/2019 by Santiago Gill MD at OR [facility] Right: Eye [employer] 08/01/2023 [id number] / [id number] / documented as of this encounter Visit Diagnoses Diagnosis Deep tissue injury- Primary Loss of weight Acute deep vein thrombosis (DVT) of femoral vein of left lower extremity (HCC) DM type 2 with diabetic peripheral neuropathy (HCC) Type II or unspecified type diabetes mellitus with neurological manifestations, not stated as uncontrolled documented in this encounter Advance Directives Healthcare Agents on File Name Relationship Healthcare Agent Relationshi p Communication Gene [place] Spouse Health Care Repr esentative (appointed verbally by patient or by statute hierarchy) Care Teams Olive Knocker Relationship Specialty Start Date End Date Renny Abdi MD [address] [place] [address] PCP - General Family Medicine 10/06/14 documented as of this encounter
--- OUTSIDE RECORDS SUMMARY | 2024-01-23 18:28 | External Medical Summary | Continuity Of Care Document ---
Author Name Unknown Address [address] [place] [address] Organization [facility] ( ) Care Team Providers Care Legal Instructor Name Role Phone Noah Monatño Primary Care Provider [phone] Problems Code Description Start Date End Date Status Z96.652 Presence of left artificial knee joint 08/21/20 Active Z47.1 Aftercare following joint replacement surgery 1 10/21/2022 Active R53.1 Weakness 08/21/2023 Active R54. Age-related physical debility 08/21/2023 Active E78.5 Hyperlipidemia, unspecified 08/21/2023 00 Active K21.9 Gastro-esophageal re flux disease without esophagitis 08/21/2023 Active I10. Essential (primary) hypertension 08/21/2023 Active J44.9 Chronic obstructive pulmonary disease, unspecified 08/21/2023 Active E11.9 Type 2 diabetes mellitus without complications 08/21/2023 Active E11.40 Type 2 diabetes zohaib itus with diabetic neuropathy, unspecified 08/21/2023 Active G25.81 Restless legs syndrome 08/21/2023 Ac tive I25.10 Atherosclerotic hear t disease of [place] coronary artery without angina pectoris 08/21/2023 Active H40.9 Unspecified glaucoma 08/21/2023 Acti ve Z85.3 Personal history of malignant neoplasm of breas t 08/21/2023 Active G25.3 Myoclonus 08/21/2023 Active M62.81 Muscle weakness (generalized) 08/28/2023 Active R26.2 Difficulty in walking, not elsewhere classified 10/19/2023 Active Z74.9 Problem related to c are provider dependency, unspecified 08/28/2023 Active U07.1 COVID-19 08/21/2023 Active R53.1 Weakness 10/19/2023 Active Z96.652 Presence of left artificial knee joint 08/21/20 Active VITAL SIGNS Date Time Diastolic blood pressure Systolic blood pressure Body height Body weight Temperature SpO2 Blood Sugar Pulse Respirations 99373 313 47403 0 96.90 Oral 31655 402 61563 7 224.00 [place] [address] 402 35639 3 80.00 mm[Hg] - Sitting 122.00 mm[Hg] - Sitting 98.20 Ear 82.00/ min 96423 403 58022 7 221.00 NI Immunizations Vaccine Date Status COVID-19 03/07/2023 Resident Refused Influenza 06/16/2022 Completed (PCV13)Pneumococcal 04/26/2016 Completed (PPSV23)Pneumococcal 07/08/2021 Completed Shingles 09/11/2014 Completed TDaP 05/28/2014 Completed
--- OUTSIDE RECORDS SUMMARY | 2024-01-23 18:28 | External Medical Summary | Summary of Care ---
Author Name Unknown Organization [facility] Address [address] [place] [address] Phone [phone] Care Team Providers Care Zoo Keeper Name Role Phone Renny Abdi MD Primary Care Provider + Reason for Visit * Reason Onset Date Comments [facility]ci Visit 01/01/2024 Encounter Details Date Type Department Care Team (Latest Contact Info) Description 01/01/2024 8:00 AM EDT [facility] Visit [facility] [address] [place] [address] Kindra Pitts PA-C [address] [place] [address] Monilial rash*; Adjustment disorder with depressed mood; Obesity, morbid (more than 100 lbs over ideal weight or BMI > 40) ([facility]); Type 2 diabetes mellitus with peripheral vascular disease ([facility]) Allergies No known active allergiesdocumented as of this encounter (statuses as of 01/01/2024) Medications Medication Sig Dispensed Refills Start Date End Date Status Insulin Syringe-Needle U-100 (BD INSULIN SYR ULTRAFINE II) 31G X 5/16" 1 ML MISCIndications:Type 2 diabetes mellitus with hemoglobin A1c goal of less than 8.0% ([facility]),DM type 2 nursing care encounter ([facility]) use with insulin twice daily [address] 09/11/2018 Active Acetaminophen 325 MG Oral Tablet Take 1 Tablet by mouth every 6 hours as needed for Pain. 0 Active nystatin 262308 UNIT/GM creamIndications:Tin ea corporis Apply To affected area for two weeks twice daily 45 g 2 12/06/2019 Active Additional Information Patient taking differently: BID PRN, Apply To affected area for two weeks twice daily, Informant: At Discharge, Reported on 04/07/2023 1DayMakeover Mini w/Device KitIndications:Type 2 diabetes mellitus with hemoglobin A1c goal of less than 8.0% ([facility]) Ck FS twice daily on insulin [...] Sodium 500 MG Oral Tablet Delayed Release (Kaye TREVIZO)Indications:Myocl onic jerking TAKE 1 TABLET IN THE MORNING AND 1 TABLET BEFORE BEDTIME. 180 Tablet 1 03/20/2023 Active Josey [employer] Rik Alexander 33GIndications:Type 2 diabetes mellitus with hemoglobin A1c goal of less than 8.0% ([facility]) Ck FS daily E11.9 100 Each 10 03/20/2023 Active Fluticasone Propionate 50 MCG/ACT Nasal Suspension (Flonase)Indications :Chronic rhinitis USE 1 SPRAY NASALLY EVERY DAY 32 g 3 03/20/2023 Active Trelegy Ellipta 100-62.5-25 MCG/ACT Aerosol Powder Breath Activated (Fluticasone-Umeclid inium-Vilanterol)Ind ications:COPD, group B, by GOLD 2017 classification ([facility]) Inhale 1 Puff by mouth in [...] as of this encounter (statuses as of 01/01/2024) Active Problems Problem Noted Date Diagnosed Date [...] 09/20/2023 S/P TKR (total knee replacement), left Slow transit constipation 08/23/2023 Medical home patient [...] classification 07/26 Overview: Noted on screening CT correction (current) use of insulin 05/16/2019 Type 2 diabetes mellitus with peripheral vascula r disease 05/16/2019 Elevated diaphragm 05/16/2019 History of colon polyps 05/09/2019 BPPV (benign paroxysmal positional vertigo), rig ht 04/28/2018 Coronary artery disease invo lving [place] coronary artery of [place] heart without angina pectoris 04/28/2018 Overactive bladder 12/12/2017 DM type 2 with diabetic peripheral neuropathy History of breast cancer 10/28/2016 Overview: S/p lumpectomy, XRT Arthritis of hand, degenerative 05/19/2015 Dyslipidemia, goal LDL below 100 10/06/2014 Nephrolithiasis 07/27/2014 Panic attacks 07/27/2014 Type 2 diabetes mellitus wit h hemoglobin A1c goal of less than 8.0% 05/28/2014 Overview: 05/10/14 a1c 9.4 @[facility]. documented as of this encounter (statuses as of 01/01/2024) Resolved Problems Problem Noted Date Diagnosed Date [...] 12/24/201405/2019 Acute pyelonephritis 07/27/2014 016 Overview: 06/15 [facility] ER +sepss Blood cx neg D/c on omnicef. Well adult exam 05/28/2014 09/20/2023 Overview: 02/25/23 CTA chest-1cm scletotic T4 lesion BONE SCAN no uptake. Need eval fatty liver/ update EKG. [facility] did not have on file. 05/22 EEG 72h WNL. EMG--This electrodiagnostic study is suggestive of a mild right median neuropathy at the wrist (carpal tunnel syndrome). There is no convincing electrodiagnostic evidence of a large fiber polyneuropathy. There is no electrophysiological evidence of a myopathy. 04/18 [facility] cardiac cath moderate disease small vessels, not stentable. . +borderline stress echo. EF 55-60. Mild LVH. Gr byrd dys. 10/[address] 06/16 repeat mammo/US ordered 12/14 Dr Barragan. 2 tubular adenoma <1cm Daughter Jennifer Winkler 06/15 [facility] ER ?pyelo. +powell sens E Coli documented as of this encounter (statuses as of 01/01/2024) Immunizations Name Administration Dates Next Due Pneumococcal [...] Visit Neurology [facility]endo[facility] [address] [place] [address] Nickolas Del Castillo, DO [address] [place] [address] Health Maintenance Due Date Last Done Comments [...] exists DXA Scan 01/31/2023 02/01/2016 COVID-19 Vaccine (1 - season) 2023 DTaP,Tdap,and Td Vaccines (2 [...] 02/10/2015 LUNG CANCER SCREENING - USE SMARTSET [id number] Completed 07/30/2021, 07/20/2020, 07/17/2019, Additional history exists [...] this encounter Medical Devices Implanted Type Area Dosier Operator Device Identifier Shelf Expiration Date Model / Serial / Lot Lens Intraoc 21.0 - [id number] - [id number] Implanted:Qty: 1 on 12/27/2018 by Santiago Gill MD at OR [facility] Left: Eye [employer] 03/01/2023 [id number] / [id number] / [id number] Lens Intraoc 21.5 - [id number] - [id number] Implanted:Qty: 1 on 01/15/2019 by Santiago Gill MD at OR [facility] Right: Eye [employer] 08/01/2023 [id number] / [id number] / documented as of this encounter Visit Diagnoses Diagnosis Monilial rash- Primary Candidiasis of skin and nails Adjustment disorder with depressed mood Obesity, morbid (more than 100 lbs over ideal weight or BMI > 40) (HCC) Morbid obesity Type 2 diabetes mellitus with peripheral vascular disease (HCC) documented in this encounter Advance Directives Healthcare Agents on File Name Relationship Healthcare Agent Relationshi p Communication Gene [place] Spouse Health Care Repr esentative (appointed verbally by patient or by statute hierarchy) Care Teams Zoo Keeper Relationship Specialty Start Date End Date Renny Adbi MD [address] [place] [address] PCP - General Family Medicine 10/06/14 documented as of this encounter
--- OUTSIDE RECORDS SUMMARY | 2024-01-23 18:28 | External Medical Summary | Continuity Of Care Document ---
Author Name Unknown Address [address] [place] [address] Organization [facility] ( ) Care Team Providers Care Transportation Project Manager Name Role Phone Noah Montaño Primary Care Provider [phone] Problems Code Description Start Date End Date [...] tive I25.10 Atherosclerotic hear t disease of [place] coronary artery without angina pectoris 08/21/2023 Active [...] weight Temperature SpO2 Blood Sugar Pulse Respirations 28178 313 48759 0 96.90 Oral 27845 402 83707 7 224.00 [place] [address] 402 12921 3 80.00 mm[Hg] - Sitting 122.00 mm[Hg] - Sitting 98.20 Ear 82.00/ min 84278 403 98985 7 221.00 NI Immunizations Vaccine Date Status COVID-19 03/07/2023 Resident Refused Influenza 06/16/2022 Completed (PCV13)Pneumococcal 04/26/2016 Completed (PPSV23)Pneumococcal 07/08/2021 Completed Shingles 09/11/2014 Completed TDaP 05/28/2014 Completed
--- OUTSIDE RECORDS SUMMARY | 2024-01-23 18:28 | External Medical Summary | Summary of Care ---
Author Name Unknown Organization [facility] Address [address] [place] [address] Phone [phone] Care Team Providers Care Meteorological Observer Name Role Phone Renny Abdi MD Primary Care Provider + Reason for Visit * Reason Onset Date Comments Advice 01/04/2024 Encounter Details Date Type Department Care Team (Late st Contact Info) Description 01/04/2024 Telephone Family Practice [facility] [address] [place] [address] Renny Abdi MD [address] [place] [id number] Advice Allergies No known active allergiesdocumented as of this encounter (statuses as of 01/08/2024) Medications Medication Sig Dispensed Refills Start Date End Date Status Insulin Syringe-Needle U-100 (BD INSULIN SYR ULTRAFINE II) 31G X 02/14" 1 ML MISCIndications:Type 2 diabetes mellitus with hemoglobin A1c goal of less than 8.0% ([facility]),DM type 2 nursing care encounter ([facility]) use with insulin twice daily [address] 09/11/2018 Active Acetaminophen 325 MG Oral Tablet Take 1 Tablet by mouth every 6 hours as needed for Pain. 0 Active nystatin 450998 UNIT/GM creamIndications:Tin ea corporis Apply To affected area for two weeks twice daily 45 g 2 12/06/2019 Active Additional Information Patient taking differently: BID PRN, Apply To affected area for two weeks twice daily, Informant: At Discharge, Reported on 04/07/2023 [employer] Ultra Mini w/Device KitIndications:Type 2 diabetes mellitus with hemoglobin A1c goal of less than 8.0% ([facility]) Ck FS twice daily on insulin E [...] BEFORE BEDTIME. 180 Tablet 1 03/20/2023 Active Oxtex Delica Lancets 33GIndications:Type 2 diabetes mellitus with hemoglobin A1c goal of less than 8.0% ([facility]) Ck FS daily E11.9 100 Each 10 03/20/2023 Active Fluticasone Propionate 50 MCG/ACT Nasal Suspension (Flonase)Indications :Chronic rhinitis USE 1 SPRAY NASALLY EVERY DAY 32 g 3 03/20/2023 Active Trelegy Ellipta 100-62.5-25 MCG/ACT Aerosol Powder Breath Activated (Fluticasone-Umeclid inium-Vilanterol)Ind ications:COPD, group B, by GOLD 2017 classification ([facility]) Inhale 1 Puff by mouth in the [...] as of this encounter (statuses as of 01/08/2024) Active Problems Problem Noted Date Diagnosed Date [...] classification 07/26 Overview: Noted on screening CT rn long term care (current) use of insulin 05/16/2019 Type 2 diabetes mellitus with peripheral vascula r disease 05/16/2019 Elevated diaphragm 05/16/2019 History of colon polyps 05/09/2019 BPPV (benign paroxysmal positional vertigo), rig ht 04/28/2018 Coronary artery disease invo lving [place] coronary artery of [place] heart without angina pectoris 04/28/2018 Overactive bladder 12/12/2017 DM type 2 with diabetic peripheral neuropathy History of breast cancer 10/28/2016 Overview: S/p lumpectomy, XRT Arthritis of hand, degenerative 05/19/2015 Dyslipidemia, goal LDL below 100 10/06/2014 Nephrolithiasis 07/27/2014 Panic attacks 07/27/2014 Type 2 diabetes mellitus wit h hemoglobin A1c goal of less than 8.0% 05/28/2014 Overview: 05/10/14 a1c 9.4 @[facility]. documented as of this encounter (statuses as of 01/08/2024) Resolved Problems Problem Noted Date Diagnosed Date Resolved Date Diarrhea 06/17/2021 03/15/2023 Hypotension due to hypovolemia 06/17/2021 03/15/2023 Dehydration 06/17/2021 03/15/2023 Morbid obesity with BMI of 40.0-44.9, adult 11/12/2018 11/12/2020 Overview: Per Obesity protocol #1 - Body mass index (BMI) of 45. 0 to 49.9 in adult 07/03/2017 11/15/2018 Overview: Per Obesity protocol #1 Tubular adenoma of colon 12/24/201405/2019 Acute pyelonephritis 07/27/2014 07/26/2 016 Overview: 06/15 [facility] ER +sepss Blood cx neg D/c on omnicef. Well adult exam 05/28/2014 09/20/2023 Overview: 02/25/23 CTA chest-1cm scletotic T4 lesion BONE SCAN no uptake. Need eval fatty liver/ update EKG. [facility] did not have on file. 05/22 EEG 72h WNL. EMG--This electrodiagnostic study is suggestive of a mild right median neuropathy at the wrist (carpal tunnel syndrome). There is no convincing electrodiagnostic evidence of a large fiber polyneuropathy. There is no electrophysiological evidence of a myopathy. 04/18 [facility] cardiac cath moderate disease small vessels, not stentable. . +borderline stress echo. EF 55-60. Mild LVH. Gr byrd dys. 10/[address] 06/16 repeat mammo/US ordered 12/14 Dr Barragan. 2 tubular adenoma <1cm Daughter Jennifer Winkler 06/15 [facility] ER ?pyelo. +powell sens E Coli documented as of this encounter (statuses as of 01/08/2024) Immunizations Name Administration Dates Next Due Pneumococcal [...] on file documented as of this encounter Miscellaneous Notes * Telephone Encounter - Dea Gonzales RN - 01/08/2024 2:59 PM EDT Pt will need to call Arcadiowalter Juan with all questions * Telephone Encounter - Mary Lou Gresham OSA - 01/04/2024 10:37 AM EDT Spouse calling, states he needs to talk to Dr Montaño when possible. This is in regards to [facility]. Please call Gene back DONALDO documented in this encounter Plan of Treatment Upcoming Encounters Date Type Department Care Team (Late st Contact Info) Description 01/23/2024 1:00 PM EDT Office Visit Neurology [place] Susan Pitts [address] [place] [address] Nickolas Del Castillo, DO [address] [place] [address] Health Maintenance Due Date Last Done Comments [...] 02/10/2015 LUNG CANCER SCREENING - USE SMARTSET [id number] Completed 07/30/2021, 07/20/2020, 07/17/2019, Additional history exists [...] this encounter Medical Devices Implanted Type Area Bowling Pin Setters Installer Device Identifier Shelf Expiration Date Model / Serial / Lot Lens Intraoc 21.0 - [id number] - [id number] Implanted:Qty: 1 on 12/27/2018 by Santiago Gill MD at OR [facility] Left: Eye [employer]OM[employer] 03/01/2023 [id number] / [id number] / [id number] Lens Intraoc 21.5 - [id number] - [id number] Implanted:Qty: 1 on 01/15/2019 by Santiago Gill MD at OR [facility] Right: Eye [employer]OMB 08/01/2023 [id number] / [id number] / documented as of this encounter Advance Directives Healthcare Agents on File Name Relationship Healthcare Agent Relationshi p Communication Gene [place] Spouse Health Care Repr esentative (appointed verbally by patient or by statute hierarchy) Care Teams Meteorological Observer Relationship Specialty Start Date End Date Renny Abdi MD [address] [place] [address] PCP - General Family Medicine 10/06/14 documented as of this encounter
--- OUTSIDE RECORDS SUMMARY | 2024-01-23 18:28 | External Medical Summary | Summary of Care ---
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 control servicer (current) use of anticoagulants Allergies No known active allergiesdocumented as of this encounter (statuses as of 12/25/2023) Medications Medication Sig Dispensed Refills Start Date End Date Status Insulin Syringe-Needle U-100 (BD INSULIN SYR ULTRAFINE II) 31G X 5/16" 1 ML MISCIndications:Type 2 diabetes mellitus with hemoglobin A1c goal of less than 8.0% ([facility]),DM type 2 nursing care encounter ([facility]) use with insulin twice daily [address] 09/11/2018 Active Acetaminophen 325 MG Oral Tablet Take 1 Tablet by mouth every 6 hours as needed for Pain. 0 Active nystatin 331621 UNIT/GM creamIndications:Tin ea corporis Apply To affected area for two weeks twice daily 45 g 2 12/06/2019 Active Additional Information Patient taking differently: BID PRN, Apply To affected area for two weeks twice daily, Informant: At Discharge, Reported on 04/07/2023 [employer] Ultra Mini w/Device KitIndications:Type 2 diabetes mellitus with hemoglobin A1c goal of less than 8.0% ([facility]) Ck FS twice daily on insulin [...] BEFORE BEDTIME. 180 Tablet 1 03/20/2023 Active [employer] Rik Lancets 33GIndications:Type 2 diabetes mellitus with hemoglobin A1c goal of less than 8.0% ([facility]) Ck FS daily E11.9 100 Each 10 03/20/2023 Active Fluticasone Propionate 50 MCG/ACT Nasal Suspension (Flonase)Indications :Chronic rhinitis USE 1 SPRAY NASALLY EVERY DAY 32 g 3 03/20/2023 Active Trelegy Ellipta 100-62.5-25 MCG/ACT Aerosol Powder Breath Activated (Fluticasone-Umeclid inium-Vilanterol)Ind ications:COPD, group B, by GOLD 2017 classification ([facility]) Inhale 1 Puff by mouth in [...] as of this encounter (statuses as of 12/25/2023) Active Problems Problem Noted Date Diagnosed Date [...] classification 07/26 Overview: Noted on screening CT 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 control servicer (current) use of insulin 05/16/2019 Type 2 diabetes mellitus with peripheral vascula r disease 05/16/2019 Elevated diaphragm 05/16/2019 History of colon polyps 05/09/2019 BPPV (benign paroxysmal positional vertigo), rig ht 04/28/2018 Coronary artery disease invo lving [place] coronary artery of [place] heart without angina pectoris 04/28/2018 Overactive bladder 12/12/2017 DM type 2 with diabetic peripheral neuropathy History of breast cancer 10/28/2016 Overview: S/p lumpectomy, XRT Arthritis of hand, degenerative 05/19/2015 Dyslipidemia, goal LDL below 100 10/06/2014 Nephrolithiasis 07/27/2014 Panic attacks 07/27/2014 Type 2 diabetes mellitus wit h hemoglobin A1c goal of less than 8.0% 05/28/2014 Overview: 05/10/14 a1c 9.4 @[facility]. documented as of this encounter (statuses as of 12/25/2023) Resolved Problems Problem Noted Date Diagnosed Date [...] 12/24/201405/2019 Acute pyelonephritis 07/27/2014 016 Overview: 06/15 [facility] ER +sepss Blood cx neg D/c on omnicef. Well adult exam 05/28/2014 09/20/2023 Overview: 02/25/23 CTA chest-1cm scletotic T4 lesion BONE SCAN no uptake. Need eval fatty liver/ update EKG. [facility] did not have on file. 05/22 EEG 72h WNL. EMG--This electrodiagnostic study is suggestive of a mild right median neuropathy at the wrist (carpal tunnel syndrome). There is no convincing electrodiagnostic evidence of a large fiber polyneuropathy. There is no electrophysiological evidence of a myopathy. 04/18 [facility] cardiac cath moderate disease small vessels, not stentable. . +borderline stress echo. EF 55-60. Mild LVH. Gr byrd dys. 10/[address] 06/16 repeat mammo/US ordered 12/14 Dr Barragan. 2 tubular adenoma <1cm Daughter Jennifer Winkler 06/15 [facility] ER ?pyelo. +powell sens E Coli documented as of this encounter (statuses as of 12/25/2023) Immunizations Name Administration Dates Next Due Pneumococcal [...] Care Team (Late st Contact Info) Description 12/25/2023 8:00 AM EDT Laboratory Lab Mobile Phlebotomy [facility] [address] [facility] [address] [facility], [address] [place] [address] Arrived 01/23/2024 1:00 PM EDT Office Visit Neurology [facility] [address] [place] [address] Nickolas Del Castillo, [address] [place] [address] Scheduled Orders Name Type Priority Associated Diagnoses Orde r Schedule BASIC METABOLIC PANEL Lab Routine DM (diabetes mellitus) (HCC) shelter (current) use of anticoagulants Expected: 12/25/2023, Expires: 12/24/2024 HEMOGLOBIN A1C Lab Routine DM (diabetes mellitus) (HCC) shelter (current) use of anticoagulants Expected: 12/25/2023, Expires: 12/24/2024 Health Maintenance Due Date Last Done Comments Zoster Vaccines (2 of 3) 11/06/2015 09/11/2015 Mammogram 06/07/2018 06/07/2017, 11/2015, 06/23/2015, Additional history exists Depression Screening 04/10/2019 04/10/2018 COLONOSCOPY-EVERY 5 YRS AGES 18-100 12/20/2019 12/19/2014 Diabetic Foot Exam 12/23/2021 12/23/2020, 0 10/28/2016, 09/11/2015, Additional history exists HbA1c 07/07/2022 01/05/2022, 06/02, 12/21/2020, Additional history exists Albumin/Creatinine Ratio 07/08/2022 021, 06/23/2020, 07/05/2019, Additional history exists Diabetic Eye Exam 01/21/2023 01/21/2022, , 09/04/2018, Additional history exists DXA Scan 01/31/2023 02/01/2016 COVID-19 Vaccine ( season) 2023 Influenza Vaccine (FLU shot) (#1) 2023 06/16/2022, 07/08/2021, 09/11/2015, Additional history exists DTaP,Tdap,and Td Vaccines (2 - Td or Tdap) 05/28/2024 05/28/2014 O2 ASSESSMENT COMPLETED IN PAST YEAR FOR COPD 07/11/2024 07/11/2023 GFR 12/17/2024 12/18/2023, 10/04, 09/27/2023, Additional history exists Alpha-1 Antitrypsin Completed 03/12/2020 Pneumococcal Vaccine: 65+ Years Completed 07/08/2021, 04/26/2016, 02/10/2015 LUNG CANCER SCREENING - USE SMARTSET [id number] Completed 07/30/2021, 07/20/2020, 07/17/2019, Additional history exists [...] this encounter Medical Devices Implanted Type Area Credit Products Officer Device Identifier Shelf Expiration Date Model / Serial / Lot Lens Intraoc 21.0 - [id number] - [id number] Implanted:Qty: 1 on 12/27/2018 by Santiago Gill MD at OR [facility] Left: Eye [employer] 03/01/2023 [id number] / [id number] Lens Intraoc 21.5 - [id number] - [id number] Implanted:Qty: 1 on 01/15/2019 by Santiago Gill MD at OR [facility] Right: Eye [employer] 08/01/2023 [id number] / [id number] / documented as of this encounter Visit Diagnoses Diagnosis DM (diabetes mellitus) (HCC)- Primary Type II or unspecified type diabetes mellitus without mention of complication, not stated as uncontrolled 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
--- OUTSIDE RECORDS SUMMARY | 2024-01-23 18:28 | External Medical Summary | Continuity Of Care Document ---
Author Name Unknown Address [address] [place] [address] Organization [facility] ( ) Care Team Providers Care Bridge Gang Worker Name Role Phone Noah Montaño Primary Care Provider [phone] Problems Code Description Start Date End Date [...] tive I25.10 Atherosclerotic hear t disease of [place] coronary artery without angina pectoris 08/21/2023 Active [...] weight Temperature SpO2 Blood Sugar Pulse Respirations 80211 313 28068 0 96.90 Oral 11826 402 32879 7 224.00 [place] [address] 402 67784 3 80.00 mm[Hg] - Sitting 122.00 mm[Hg] - Sitting 98.20 Ear 82.00/ min 69312 403 82582 7 221.00 NI Immunizations Vaccine Date Status COVID-19 03/07/2023 Resident Refused Influenza 06/16/2022 Completed (PCV13)Pneumococcal 04/26/2016 Completed (PPSV23)Pneumococcal 07/08/2021 Completed Shingles 09/11/2014 Completed TDaP 05/28/2014 Completed
--- OUTSIDE RECORDS SUMMARY | 2024-01-23 18:28 | External Medical Summary | Summary of Care ---
Author Name Unknown Organization [facility] Address [address] [place] [address] Phone [phone] Care Team Providers Care Department Clinician Name Role Phone Renny Lange MD Primary Care Provider + Reason for Visit * Reason Onset Date Comments Medication Refill 01/09/2024 Encounter Details Date Type Department Care Team (Late st Contact Info) Description 01/09/2024 Refill Family Practice [facility] [address] [place] [address] Renny Lange MD [address] [facility] [place] [address] Type 2 diabetes mellitus with hemoglobin A1c goal of less than 8.0% ([facility]) Allergies No known active allergiesdocumented as of this encounter (statuses as of 01/10/2024) Medications Medication Sig Dispensed Refills Start Date End Date Status Insulin Syringe-Needle U-100 (BD INSULIN SYR ULTRAFINE II) 31G X 5/16" 1 ML MISCIndications:Typ e 2 diabetes mellitus with hemoglobin A1c goal of less than 8.0% (HCC),DM type 2 nursing care encounter (HCC) use with insulin twice daily [address] 5 09/11/2018 Active Acetaminophen 325 MG Oral Tablet Take 1 Tablet by mouth every 6 hours as needed for Pain. 0 Active nystatin 722298 UNIT/GM creamIndications:Ti drew corporis Apply To affected area for two weeks twice daily 45 g 2 12/06/2019 Active Additional Information Patient taking differently: BID PRN, Apply To affected area for two weeks twice daily, Informant: At Discharge, Reported on 04/07/2023 Zazoom Mini w/Device KitIndications:Type 2 diabetes mellitus with hemoglobin A1c goal of less than 8.0% ([facility]) Ck FS twice daily on insulin E 11.9 1 Kit 0 07/23/2021 Active Lactobacillus Oral Tablet Take 1 Tablet by mouth in the morning and 1 Tablet before bedtime. 60 Tablet 1 03/20/2023 Active Cetirizine HCl 10 MG Oral Tablet (ZyrTEC)Indications :Environmental allergies Take 1 Tablet by mouth in the morning. 90 Tablet 2 03/20/2023 Active Daily Value Multivitamin Oral Tablet Take 1 Tablet by mouth in the morning. 90 Tablet 0 03/20/2023 Active Latanoprost 0.005 % Ophthalmic Solution (Xalatan) Instill 1 Drop into both eyes at bedtime. 2.5 mL 0 03/20/2023 Active B-12 100 MCG Oral TabletIndications:B 12 deficiency 1 tablet daily 90 Tablet 1 03/20/2023 Active Vitamin D 25 MCG (1000 UT) Oral TabletIndications:V itamin D deficiency 1 tablet daily 90 Tablet 1 03/20/2023 Active Divalproex Sodium 500 MG Oral Tablet Delayed Release (Kaye TREVIZO)Indications:Myoc lonic jerking TAKE 1 TABLET IN THE MORNING AND 1 TABLET BEFORE BEDTIME. 180 Tablet 1 03/20/2023 Active VEEDIMS Rik Alexander 33GIndications:Type 2 diabetes mellitus with hemoglobin A1c goal of less than 8.0% ([facility]) Ck FS daily E11.9 100 Each 10 03/20/2023 Active Fluticasone Propionate 50 MCG/ACT Nasal Suspension (Flonase)Indication s:Chronic rhinitis USE 1 SPRAY NASALLY EVERY DAY 32 g 3 03/20/2023 Active Trelegy Ellipta 100-62.5-25 MCG/ACT Aerosol Powder Breath Activated (Fluticasone-Umecli dinium-Vilanterol)I ndications:COPD, group B, by GOLD 2017 classification ([facility]) Inhale 1 Puff by mouth in the morning. 180 Each 3 03/20/2023 Active Albuterol Sulfate (2.5 MG/3ML) 0.083% Inhalation Nebulization Solution Inhale 1 Vial via nebulizer. As directed, if needed, for shortness of breath or wheezing 0 Active rOPINIRole HCl 1 MG Oral Tablet (Requip)Indications :RLS (restless legs syndrome) Take 1 Tablet by mouth at bedtime. 90 Tablet 2 04/19/2023 Active Ketoconazole 2 % External CreamIndications:Ti drew corporis Apply topically to affected area 2 times a day. Apply to bilateral breast fold 90 g 5 05/10/2023 Active Atorvastatin Calcium 40 MG Oral Tablet (Lipitor)Indication s:Type 2 diabetes mellitus with peripheral vascular disease (HCC) Take 1 Tablet by mouth at bedtime. 90 Tablet 1 06/20/2023 Active Omeprazole 20 MG Oral Capsule Delayed Release (PriLOSEC)Indicatio ns:Gastroesophageal reflux disease without esophagitis TAKE 1 CAP BY MOUTH TWICE DAILY 1 HOUR PRIOR TO FIRST AND EVENING MEALS 180 Capsule 1 06/20/2023 Active metFORMIN HCl ER 500 MG Oral Tablet Extended Release 24 Hour (Glucophage XR) Take 2 Tablets by mouth in the morning and 2 Tablets before bedtime. 360 Tablet 1 07/11/2023 Active Gabapentin 300 MG Oral Capsule (Neurontin)Indicati ons:RLS (restless legs syndrome) Take 1 Capsule by [...] 12/20/2023 Active Furosemide 40 MG Oral Tablet (Lasix)Indications: Peripheral edema Take 1 Tablet by mouth in the morning. 0 12/20/2023 Active OneTouch Ultra In Vitro Strip (Glucose Blood)Indications:T ype 2 diabetes mellitus with hemoglobin A1c goal of less than 8.0% (HCC) Use as directed 2 times daily E11.9 Hx hypo/hyperglycem ia. 200 Strip 3 01/10/2024 Active OneTouch Ultra In Vitro Strip (Glucose Blood)Indications:T ype 2 diabetes mellitus with hemoglobin A1c goal of less than 8.0% (HCC) Use as directed 2 times daily E11.9 Hx hypo/hyperglycem ia. 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 05/16/2019 Type 2 diabetes mellitus with peripheral vascula r disease 05/16/2019 Elevated diaphragm 05/16/2019 History of colon polyps 05/09/2019 BPPV (benign paroxysmal positional vertigo), rig ht 04/28/2018 Coronary artery disease invo lving [place] coronary artery of [place] heart without angina pectoris 04/28/2018 Overactive bladder 12/12/2017 DM type 2 with diabetic peripheral neuropathy History of breast cancer 10/28/2016 Overview: S/p lumpectomy, XRT Arthritis of hand, degenerative 05/19/2015 Dyslipidemia, goal LDL below 100 10/06/2014 Nephrolithiasis 07/27/2014 Panic attacks 07/27/2014 Type 2 diabetes mellitus wit h hemoglobin A1c goal of less than 8.0% 05/28/2014 Overview: 05/10/14 a1c 9.4 @[facility]. documented as of this encounter (statuses as of 01/10/2024) Resolved Problems Problem Noted Date Diagnosed Date [...] 12/24/201405/2019 Acute pyelonephritis 07/27/2014 016 Overview: 06/15 [facility] ER +sepss Blood cx neg D/c on omnicef. Well adult exam 05/28/2014 09/20/2023 Overview: 02/25/23 CTA chest-1cm scletotic T4 lesion BONE SCAN no uptake. Need eval fatty liver/ update EKG. [facility] did not have on file. 05/22 EEG 72h WNL. EMG--This electrodiagnostic study is suggestive of a mild right median neuropathy at the wrist (carpal tunnel syndrome). There is no convincing electrodiagnostic evidence of a large fiber polyneuropathy. There is no electrophysiological evidence of a myopathy. 04/18 [facility] cardiac cath moderate disease small vessels, not stentable. . +borderline stress echo. EF 55-60. Mild LVH. Gr byrd dys. 10/[address] 06/16 repeat mammo/US ordered 12/14 Dr Barragan. 2 tubular adenoma <1cm Daughter Jennifer Winkler 06/15 [facility] ER ?pyelo. +powell sens E Coli documented as of this encounter (statuses as of 01/10/2024) Immunizations Name Administration Dates Next Due Pneumococcal [...] encounter Miscellaneous Notes * Telephone Encounter - Anu Graham [facility] - 01/10/2024 4:58 PM EDTSigned Prescriptions: Disp Refills OneTouch Ultra In Vitro Strip (Glucose Blo*[address] St*3 Sig: Use as directed 2 times daily E11.9 Hx hypo/hyperglycemia. Authorizing Provider: RENNY LANGE Ordering User: ANU RAVI * Telephone Encounter - Sho Price, senior linux systems administrator - 01/09/2024 10:48 AM EDT Did you pend patient's preferred pharmacy and medication before forwarding?yes Pharmacy: [id number] [facility] Pending Prescriptions: Disp Refills OneTouch Ultra In Vitro Strip (Glucose Bl*[address] St*3 Sig: Use as directed 2 times daily E11.9 Hx hypo/hyperglycemia. Last Visit: 04/14/2023 (in office), Visit date not found (telemedicine) Next Visit: Visit date not found If no future appointments scheduled, and last appointment is greater than a year ago, please schedule patient for a follow-up appointment Last date the medication was ordered: 04/17/2023 Is this request for a controlled substance?No Urine Drug Screen:No results found for this or any previous visit. Patient Phone Numbers Labs: Lab Results Component Value Date/Time CREAT 0.7 12/25/2023 05:28 AM CREAT 0.47 (A) 03/28/2023 12:00 AM CREAT 0.7 06/23/2020 09:38 AM POTASSIUM 4.2 12/25/2023 05:28 AM POTASSIUM 140 03/28/2023 12:00 AM POTASSIUM 4.4 06/23/2020 09:38 AM TSH 5.16 (H) 09/20/2023 05:29 AM TSH 2.33 06/01/2015 10:56 AM LDLCALC 74 01/05/2022 09:40 AM LDLCALC 72 06/23/2020 09:38 AM LDLDIRECT NOT APPLICABLE 06/23/2020 09:38 AM ALT 7 (L) 09/20/2023 05:29 AM ALT 32 04/16/2016 08:29 AM HGBA1C 6.0 (H) 12/25/2023 05:28 AM HGBA1C 5.8 (H) 06/23/2020 09:38 AM documented in this encounter Plan of Treatment Upcoming Encounters Date Type Department Care Team (Late st Contact Info) Description 01/23/2024 1:00 PM EDT Office Visit [facility] Susan Mendoza [address] [place] [address] Nickolas Del Castillo, [address] [place] [id number] Health Maintenance Due Date Last Done Comments Zoster Vaccines (2 of 3) 11/06/2015 09/11/2015 Mammogram 06/07/2018 06/07/2017, 09/0 11/2015, 06/23/2015, Additional history exists Depression Screening [...] 02/10/2015 LUNG CANCER SCREENING - USE SMARTSET 80142 Completed 07/30/2021, 07/20/2020, 07/17/2019, Additional history exists [...] this encounter Medical Devices Implanted Type Area Gis Analyst Device Identifier Shelf Expiration Date Model / Serial / Lot Lens Intraoc 21.0 - [id number] - [id number] Implanted:Qty: 1 on 12/27/2018 by Santiago Gill MD at [facility] Left: Eye [employer] 03/01/2023 [id number] / [id number] / [id number] Lens Intraoc 21.5 - [id number] - [id number] Implanted:Qty: 1 on 01/15/2019 by Santiago Gill MD at [facility] Right: Eye [employer] 08/01/2023 [id number] / [id number] / documented as of this encounter Visit Diagnoses Diagnosis Type 2 diabetes mellitus with hemoglobin A1c goal of less than 8.0% (HCC) documented in this encounter Advance Directives Healthcare Agents on File Name Relationship Healthcare Agent Relationshi p Communication Gene Sana Spouse Health Care Repr esentative (appointed verbally by patient or by statute hierarchy) Care Teams Department Clinician Relationship Specialty Start Date End Date Renny Lange MD [address] [facility] [place] [address] PCP - General Family Medicine 10/06/14 documented as of this encounter
--- OUTSIDE RECORDS SUMMARY | 2024-01-23 18:28 | External Medical Summary ---
Author Name Unknown Address Unknown Organization K0G:[facility] [address] [place] [address] Laboratory Report Ordering Provider Test Date Status MELISSA ATKINS 12/25/2023 05:28:00 Final Observation Date Value Abnormality Reference (Units ) Status BUN 12/25/2023 05:28:00 10 6-20 (mg/dL) Final Creatinine 12/25/2023 05:28:00 0.7 0.5-1.0 (mg/dL) Final Glomerular filtration rate/1.73 sq M.predicted [Volume Rate/Area] in Serum, Plasma or Blood by Creatinine-based formula (CKD-EPI) 12/25/2023 05:28:00 >90 >=60 (mL/min) Final eGFR is calculated based on the CKD-EPI 2020 equation Sodium 12/25/2023 05:28:00 139 135-146 (m mol/L) Final Potassium 12/25/2023 05:28:00 4.2 3.5-5.1 (m mol/L) Final Cl 12/25/2023 05:28:00 101 98-107 (mm ol/L) Final CO2 12/25/2023 05:28:00 28 22-32 (mmo l/L) Final Anion gap 12/25/2023 05:28:00 10 7-15 (mmol /L) Final Glucose 12/25/2023 05:28:00 129 Above high normal 70 -120 (mg/dL) Final Calcium 12/25/2023 05:28:00 8.9 8.4-10.2 ( mg/dL) Final Performing Location [facility] [address] [place] [id number]
--- OUTSIDE RECORDS SUMMARY | 2024-01-23 18:28 | External Medical Summary | Continuity Of Care Document ---
Author Name Unknown Address [address] [place] [address] Organization [facility] ( ) Care Team Providers Care Filter Tip Inspector Name Role Phone Noah Montaño Primary Care Provider [phone] Problems Code Description Start Date End Date [...] tive I25.10 Atherosclerotic hear t disease of [place] coronary artery without angina pectoris 08/21/2023 Active [...] weight Temperature SpO2 Blood Sugar Pulse Respirations 92921 313 10019 0 96.90 Oral 69196 402 19918 7 224.00 NI 08286 402 03717 3 80.00 mm[Hg] - Sitting 122.00 mm[Hg] - Sitting 98.20 Ear 82.00/ min 95922 403 43123 7 221.00 NI Immunizations Vaccine Date Status COVID-19 03/07/2023 Resident Refused Influenza 06/16/2022 Completed (PCV13)Pneumococcal 04/26/2016 Completed (PPSV23)Pneumococcal 07/08/2021 Completed Shingles 09/11/2014 Completed TDaP 05/28/2014 Completed
--- OUTSIDE RECORDS SUMMARY | 2024-01-23 18:28 | External Medical Summary ---
Author Name Unknown Address Unknown Organization K01:[facility] [address] [facility] [address] Laboratory Report Ordering Provider Test Date Status MELISSA ATKINS 12/25/2023 05:28:00 Final Observation Date Value Abnormality Reference (Units ) Status HbA1C 12/25/2023 05:28:00 6.0 Above high normal 4. 0-5.6 (%) Final The use of HbA1c to monitor glycemic status is based on normal hemoglobin and HbA composition. This test should not be used in patients with abnormal hemoglobin that affects the half life of the red blood cell or the in vivo glycation rates. Glucose, estimated average 12/25/2023 05:28:00 126 Above high normal <126 (mg/dL) Rashaun carlos Performing Location [facility] - [address] [facility] [address]
--- OUTSIDE RECORDS SUMMARY | 2024-01-23 18:28 | External Medical Summary | Continuity Of Care Document ---
Author Name Unknown Address [address] [place] [address] Organization [facility] ( ) Care Team Providers Care Loan Review Analyst Name Role Phone Noah Montaño Primary Care Provider [phone] Problems Code Description Start Date End Date [...] tive I25.10 Atherosclerotic hear t disease of [place] coronary artery without angina pectoris 08/21/2023 Active [...] weight Temperature SpO2 Blood Sugar Pulse Respirations 51446 313 34470 0 96.90 Oral 50728 402 40308 7 224[place]00 [place] [address] 402 92561 3 80.00 mm[Hg] - Sitting 122.00 mm[Hg] - Sitting 98.20 Ear 82.00/ min 88844 403 85630 7 221.00 NI Immunizations Vaccine Date Status COVID-19 03/07/2023 Resident Refused Influenza 06/16/2022 Completed (PCV13)Pneumococcal 04/26/2016 Completed (PPSV23)Pneumococcal 07/08/2021 Completed Shingles 09/11/2014 Completed TDaP 05/28/2014 Completed
--- OUTSIDE RECORDS SUMMARY | 2024-01-23 18:29 | External Medical Summary ---
Author Name Unknown Address Unknown Organization K0G:[facility] [address] - [address] [place] [address] Laboratory Report Ordering Provider Test Date Status MELISSA ATKINS 12/18/2023 05:38:00 Final Observation Date Value Abnormality Reference (Units ) Status BUN 12/18/2023 05:38:00 11 6-20 (mg/dL) Final Creatinine 12/18/2023 05:38:00 0.6 0.5-1.0 (mg/dL) Final Glomerular filtration rate/1.73 sq M.predicted [Volume Rate/Area] in Serum, Plasma or Blood by Creatinine-based formula (CKD-EPI) 12/18/2023 05:38:00 >90 >=60 (mL/min) Final eGFR is calculated based on the CKD-EPI 2020 equation SODIUM 12/18/2023 05:38:00 138 135-146 (m mol/L) Final Potassium 12/18/2023 05:38:00 4.5 3.5-5.1 (m mol/L) Final Cl 12/18/2023 05:38:00 97 Below low normal 98- 107 (mmol/L) Final CO2 12/18/2023 05:38:00 29 22-32 (mmo l/L) Final Anion gap 12/18/2023 05:38:00 12 7-15 (mmol /L) Final Glucose 12/18/2023 05:38:00 111 70-120 (mg /dL) Final Calcium 12/18/2023 05:38:00 9.2 8.4-10.2 ( mg/dL) Final [facility]forming [facility] [address] [place] [address]
--- OUTSIDE RECORDS SUMMARY | 2024-01-23 18:29 | External Medical Summary | Continuity Of Care Document ---
Author Name Unknown Address [address] [place] [address] Organization [facility] ( ) Care Team Providers Care Qa Reviewer Name Role Phone Noah Montaño Primary Care Provider [phone] Problems Code Description Start Date End Date [...] tive I25.10 Atherosclerotic hear t disease of [place] coronary artery without angina pectoris 08/21/2023 Active [...] weight Temperature SpO2 Blood Sugar Pulse Respirations 13193 226 81386 4 97.00 Oral 63250 226 86630 1 97.90 Oral 36155 227 30380 4 97.10 Oral 71091 227 15429 7 97.30 Oral 88325 228 43133 6 96.60 Oral 66317 228 72689 9 97.00 Ear 60801 228 50050 0 97.60 Oral 87479 229 60876 5 97.40 Oral 13049 229 38892 1 97.30 Oral 15587 301 83984 0 97.80 Oral 57728 301 77175 3 97.80 Oral 59862 301 69641 2 98.00 Oral 67879 302 81994 5 96.80 Oral 09701 302 63539 9 96.80 Oral 80493 303 66018 6 96.10 Oral 90608 305 77544 6 96.80 Oral 57154 305 12868 0 229[place]00 [place] [address] 305 31824 7 80.00 mm[Hg] - Sitting 122.00 mm[Hg] - Sitting 98.00 Ear 82.00/ min 90495 305 15711 5 97.20 Oral 13829 309 83844 7 98.50 Oral 57477 313 71831 0 96.90 Oral Immunizations Vaccine Date Status COVID-19 03/07/2023 Resident Refused Influenza 06/16/2022 Completed (PCV13)Pneumococcal 04/26/2016 Completed (PPSV23)Pneumococcal 07/08/2021 Completed Shingles 09/11/2014 Completed TDaP 05/28/2014 Completed
--- OUTSIDE RECORDS SUMMARY | 2024-01-23 18:29 | External Medical Summary | Summary of Care ---
Author Name Unknown Organization [facility] Address [address] [place] [address] Phone [phone] Care Team Providers Care Saw Setter Name Role Phone Renny Abdi MD Primary Care Provider + Encounter Details Date Type Department Care Team (Late st Contact Info) Description 12/18/2023 Orders Only Lab Mobile Phlebotomy [facility] [address] [place] [address] Noah Montaño MD [address] [place] [address] [place] [id number] HTN, goal below 140/90*; DM (diabetes mellitus) ([facility]) Allergies No known active allergiesdocumented as of this encounter (statuses as of 12/18/2023) Medications Medication Sig Dispensed Refills Start Date End Date Status Insulin Syringe-Needle U-100 (BD INSULIN SYR ULTRAFINE II) 31G X /" 1 ML MISCIndications:Type 2 diabetes mellitus with hemoglobin A1c goal of less than 8.0% ([facility]),DM type 2 nursing care encounter ([facility]) use with insulin twice daily [address] 09/11/2018 Active Acetaminophen 325 MG Oral Tablet Take 1 Tablet by mouth every 6 hours as needed for Pain. 0 Active nystatin 222443 UNIT/GM creamIndications:Tin ea corporis Apply To affected area for two weeks twice daily 45 g 2 12/06/2019 Active Additional Information Patient taking differently: BID PRN, Apply To affected area for two weeks twice daily, Informant: At Discharge, Reported on 04/07/2023 [employer] Ultra Mini w/Device KitIndications:Type 2 diabetes mellitus with hemoglobin A1c goal of less than 8.0% ([facility]) Ck FS twice daily on insulin E 11.9 1 Kit 0 07/23/2021 Active Lactobacillus Oral Tablet Take 1 Tablet by mouth in the morning and 1 Tablet before bedtime. 60 Tablet 1 03/20/2023 Active Furosemide 20 MG Oral Tablet (Lasix)Indications:P eripheral edema TAKE 1 TABLET DAILY NEEDED FOR EDEMA/FLUID ACCUMULATION OR WEIGHT GAIN 90 Tablet 1 03/20/2023 Active Cetirizine HCl 10 [...] AND 1 TABLET BEFORE BEDTIME. 180 Tablet 03/20/2023 Active [employer] Rik Alexander 33GIndications:Type 2 diabetes mellitus with hemoglobin A1c goal of less than 8.0% ([facility]) Ck FS daily E11.9 100 Each 10 03/20/2023 Active Fluticasone Propionate 50 MCG/ACT Nasal Suspension (Flonase)Indications :Chronic rhinitis USE 1 SPRAY NASALLY EVERY DAY 32 g 3 03/20/2023 Active Trelegy Ellipta 100-62.5-25 MCG/ACT Aerosol Powder Breath Activated (Fluticasone-Umeclid inium-Vilanterol)Ind ications:COPD, group B, by GOLD 2017 classification ([facility]) Inhale 1 Puff by mouth in the [...] by mouth at bedtime. 0 09/11/2023 Active Senna-Docusate Sodium 8.6-50 MG Oral Tablet Take 1 Tablet by mouth in the morning and 1 Tablet before bedtime. 0 09/20/2023 Active Aspirin 81 MG Oral Tablet Delayed Release Take 1 Tablet by mouth in the morning. 0 09/20/2023 Active Potassium Chloride 20 MEQ Oral Packet (Klor-Con) Take 40 mEq by mouth in the morning. 0 09/26/2023 Active oxyCODONE HCl 5 MG Oral Tablet (Oxy IR) Take 1 Tablet by mouth every 6 hours as needed for Pain, Severe or Pain, Moderate. 60 Tablet 0 11/09/2023 Active Apixaban 5 MG Oral Tablet (Eliquis) Take 1 Tablet by mouth in the morning and 1 Tablet before bedtime. 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 05/16/2019 Type 2 diabetes mellitus with peripheral vascula r disease 05/16/2019 Elevated diaphragm 05/16/2019 History of colon polyps 05/09/2019 BPPV (benign paroxysmal positional vertigo), rig ht 04/28/2018 Coronary artery disease invo lving [place] coronary artery of [place] heart without angina pectoris 04/28/2018 Overactive bladder 12/12/2017 DM type 2 with diabetic peripheral neuropathy History of breast cancer 10/28/2016 Overview: S/p lumpectomy, XRT Arthritis of hand, degenerative 05/19/2015 Dyslipidemia, goal LDL below 100 10/06/2014 Nephrolithiasis 07/27/2014 Panic attacks 07/27/2014 Type 2 diabetes mellitus wit h hemoglobin A1c goal of less than 8.0% 05/28/2014 Overview: 05/10/14 a1c 9.4 @[facility]. documented as of this encounter (statuses as of 12/18/2023) Resolved Problems Problem Noted Date Diagnosed Date [...] 12/24/201405/2019 Acute pyelonephritis 07/27/2014 016 Overview: 06/15 [facility] ER +sepss Blood cx neg D/c on omnicef. Well adult exam 05/28/2014 09/20/2023 Overview: 02/25/23 CTA chest-1cm scletotic T4 lesion BONE SCAN no uptake. Need eval fatty liver/ update EKG. [facility] did not have on file. 05/22 EEG 72h WNL. EMG--This electrodiagnostic study is suggestive of a mild right median neuropathy at the wrist (carpal tunnel syndrome). There is no convincing electrodiagnostic evidence of a large fiber polyneuropathy. There is no electrophysiological evidence of a myopathy. 04/18 [facility] cardiac cath moderate disease small vessels, not stentable. . +borderline stress echo. EF 55-60. Mild LVH. Gr byrd dys. 10/[address] 06/16 repeat mammo/US ordered 12/14 Dr Barragan. 2 tubular adenoma <1cm Daughter Jennifer Winkler 06/15 [facility] ER ?pyelo. +powell sens E Coli documented as of this encounter (statuses as of 12/18/2023) Immunizations Name Administration Dates Next Due Pneumococcal [...] Care Team (Late st Contact Info) Description 12/18/2023 8:00 AM EDT Laboratory Lab Mobile Phlebotomy [facility] [address] [facility] [address] [place] [address] Arrived 01/23/2024 1:00 PM EDT Office Visit Neurology [facility] [place] [address] [place] [address] Nickolas Del Castillo, DO [address] [place] [address] Scheduled Orders Name Type Priority Associated Diagnoses Orde r Schedule BASIC METABOLIC PANEL Lab Routine HTN, goal below 140/90 DM (diabetes mellitus) ([facility]) Expected: 12/18/2023, Expires: 12/17/2024 Health Maintenance Due Date Last Done Comments [...] PAST YEAR FOR COPD 07/11/2024 07/11/2023 GFR 10/31/2024 10/31/2023, /04/2023, 09/20/2023, Additional history exists Alpha-1 Antitrypsin Completed 03/12/2020 Pneumococcal Vaccine: 65+ Years Completed 07/08/2021, 04/26/2016, 02/10/2015 LUNG CANCER SCREENING - USE SMARTSET [id number] Completed 07/30/2021, 07/20/2020, 07/17/2019, Additional history exists [...] this encounter Medical Devices Implanted Type Area Plaster Applicator Device Identifier Shelf Expiration Date Model / Serial / Lot Lens Intraoc 21.0 - [id number] - [id number] Implanted:Qty: 1 on 12/27/2018 by Santiago Gill MD at [facility] Left: Eye [employer]OM[employer] 03/01/2023 [id number] / [id number] / [id number] Lens Intraoc 21.5 - [id number] - [id number] Implanted:Qty: 1 on 01/15/2019 by Santiago Gill MD at [facility] Right: Eye [employer] LOMB 08/01/2023 [id number] / [id number] / documented as of this encounter Visit Diagnoses Diagnosis HTN, goal below 140/90- Primary Unspecified essential hypertension DM (diabetes mellitus) (HCC) Type II or unspecified type diabetes mellitus without mention of complication, not stated as uncontrolled documented in this encounter Advance Directives Healthcare Agents on File Name Relationship Healthcare Agent Relationshi p Communication Gene Sana Spouse Health Care Repr esentative (appointed verbally by patient or by statute hierarchy) Care Teams Saw Setter Relationship Specialty Start Date End Date Renny Abdi MD [address] [place] [address] PCP - General Family Medicine 10/06/14 documented as of this encounter
--- OUTSIDE RECORDS SUMMARY | 2024-01-23 18:29 | External Medical Summary | Summary of Care ---
Author Name Unknown Organization [facility] Address [address] [place] [address] Phone [phone] Care Team Providers Care Water Project Manager Name Role Phone Renny Abdi MD Primary Care Provider + Encounter Details Date Type Department Care Team (Late st Contact Info) Description 12/12/2023 Population Health External Data Unspecified Department Allergies No known active allergiesdocumented as of this encounter (statuses as of 12/12/2023) Medications Medication Sig Dispensed Refills Start Date End Date Status Insulin Syringe-Needle U-100 (BD INSULIN SYR ULTRAFINE II) 31G X 5/16" 1 ML MISCIndications:Type 2 diabetes mellitus with hemoglobin A1c goal of less than 8.0% ([facility]),DM type 2 nursing care encounter ([facility]) use with insulin twice daily [address] 09/11/2018 Active Acetaminophen 325 MG Oral Tablet Take 1 Tablet by mouth every 6 hours as needed for Pain. 0 Active nystatin 726881 UNIT/GM creamIndications:Tin ea corporis Apply To affected area for two weeks twice daily 45 g 2 12/06/2019 Active Additional Information Patient taking differently: BID PRN, Apply To affected area for two weeks twice daily, Informant: At Discharge, Reported on 04/07/2023 [employer] Ultra Mini w/Device KitIndications:Type 2 diabetes mellitus with hemoglobin A1c goal of less than 8.0% ([facility]) Ck FS twice daily on [...] 500 MG Oral Tablet Delayed Release (Kaye REEDER)Indications:Myocl onic jerking TAKE 1 TABLET IN THE MORNING AND 1 TABLET BEFORE BEDTIME. 180 Tablet 1 03/20/2023 Active OneTouch Delgely Lancets 33GIndications:Type 2 diabetes mellitus with hemoglobin A1c goal of less than 8.0% ([facility]) Ck FS daily E11.9 100 Each 10 03/20/2023 Active Fluticasone Propionate 50 MCG/ACT Nasal Suspension (Flonase)Indications :Chronic rhinitis USE 1 SPRAY NASALLY EVERY DAY 32 g 3 03/20/2023 Active Trelegy Ellipta 100-62.5-25 MCG/ACT Aerosol Powder Breath Activated (Fluticasone-Umeclid inium-Vilanterol)Ind ications:COPD, group B, by GOLD 2017 classification ([facility]) Inhale 1 Puff by mouth in the morning. 180 Each 3 03/20/2023 Active Albuterol Sulfate (2.5 MG/3ML) 0.083% Inhalation Nebulization Solution Inhale 1 Vial via nebulizer. As directed, if needed, for shortness of breath or wheezing 0 Active OneTouch Ultra In Vitro Strip (Glucose Blood)Indications:Ty pe 2 diabetes mellitus with hemoglobin A1c goal of less than 8.0% ([facility]) Use as directed 2 times daily E11.9 [...] as of this encounter (statuses as of 12/12/2023) Active Problems Problem Noted Date Diagnosed Date [...] ht 04/28/2018 Coronary artery disease invo lving [place] coronary artery of [place] heart without angina pectoris 04/28/2018 Overactive bladder 12/12/2017 DM type 2 with diabetic peripheral neuropathy History of breast cancer 10/28/2016 Overview: S/p lumpectomy, XRT Arthritis of hand, degenerative 05/19/2015 Dyslipidemia, goal LDL below 100 10/06/2014 Nephrolithiasis 07/27/2014 Panic attacks 07/27/2014 Type 2 diabetes mellitus wit h hemoglobin A1c goal of less than 8.0% 05/28/2014 Overview: 05/10/14 a1c 9.4 @[facility]. documented as of this encounter (statuses as of 12/12/2023) Resolved Problems Problem Noted Date Diagnosed Date [...] 12/24/201405/2019 Acute pyelonephritis 07/27/2014 016 Overview: 06/15 [facility] ER +sepss Blood cx neg D/c on omnicef. Well adult exam 05/28/2014 09/20/2023 Overview: 02/25/23 CTA chest-1cm scletotic T4 lesion BONE SCAN no uptake. Need eval fatty liver/ update EKG. [facility] did not have on file. 05/22 EEG 72h WNL. EMG--This electrodiagnostic study is suggestive of a mild right median neuropathy at the wrist (carpal tunnel syndrome). There is no convincing electrodiagnostic evidence of a large fiber polyneuropathy. There is no electrophysiological evidence of a myopathy. 04/18 [facility] cardiac cath moderate disease small vessels, not stentable. . +borderline stress echo. EF 55-60. Mild LVH. Gr byrd dys. 10/[address] 06/16 repeat mammo/US ordered 12/14 Dr Barragan. 2 tubular adenoma <1cm Daughter Jennifer Winkler 06/15 [facility] ER ?pyelo. +powell sens E Coli documented as of this encounter (statuses as of 12/12/2023) Immunizations Name Administration Dates Next Due Pneumococcal [...] the money to buy more. Never true 04/07/20 23 Within the past 12 months, t he food you bought just didn't last and you didn't have money to get more. Never true 04/07/2023 Sex and Gender Information Value Date Recorded [...] Office Visit Neurology [facility] [address] [place] [address] Nickolas Del Castillo, [address] [place] [address] Health Maintenance Due Date Last Done Comments [...] FOR COPD 07/11/2024 07/11/2023 GFR 10/31/2024 10/31/2023, 12/04/2023, 09/20/2023, Additional history exists Alpha-1 Antitrypsin Completed 03/12/2020 Pneumococcal Vaccine: 65+ Years Completed 07/08/2021, 04/26/2016, 02/10/2015 LUNG CANCER SCREENING - USE SMARTSET [id number] Completed 07/30/2021, 07/20/2020, 07/17/2019, Additional history exists [...] this encounter Medical Devices Implanted Type Area Waiter/Waitress Cafeteria Device Identifier Shelf Expiration Date Model / Serial / Lot Lens Intraoc 21.0 - [id number] - [id number] Implanted:Qty: 1 on 12/27/2018 by Santiago Gill MD at [facility] Left: Eye [employer]OM[employer] 03/01/2023 [id number] / [id number] / [id number] Lens Intraoc 21.5 - [id number] - [id number] Implanted:Qty: 1 on 01/15/2019 by Santiago Gill MD at [facility] Right: Eye [employer]OMB 08/01/2023 [id number] / [id number] / documented as of this encounter Advance Directives Healthcare Agents on File Name Relationship Healthcare Agent Relationshi p Communication Gene Bondurant Spouse Health Care Repr esentative (appointed verbally by patient or by statute hierarchy) Care Teams Water Project Manager Relationship Specialty Start Date End Date Renny Abdi MD [address] [place] [address] PCP - General Family Medicine 10/06/14 documented as of this encounter
--- OUTSIDE RECORDS SUMMARY | 2024-01-23 18:29 | External Medical Summary | Summary of Care ---
Author Name Unknown Organization [facility] Address [address] [place] [address] Phone [phone] Care Team Providers Care Web Content Executive Name Role Phone Renny Abdi MD Primary Care Provider + Reason for Visit * Reason Onset Date Comments [facility] Visit 12/20/2023 Regulatory Encounter Details Date Type Department Care Team (Latest Contact Info) Description 12/20/2023 9:30 AM EDT [facility] Visit [address] [place] [id number] Noah Montaño MD [address] [place] [address] [place] [id number] Acute deep vein thrombosis (DVT) of femoral vein of left lower extremity ([facility])*; 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 ([facility]); Type 2 diabetes mellitus with hemoglobin A1c goal of less than 8.0% ([facility]); Obesity, morbid (more than 100 lbs over ideal weight or BMI > 40) ([facility]); Panic attacks; Dyslipidemia, goal LDL below 100; Peripheral edema; DM type 2 with diabetic peripheral neuropathy ([facility]); COPD, group B, by GOLD 2017 classification ([facility]); Coronary artery disease involving [place] coronary artery of [place] heart without angina pectoris; 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[facility]); S/P TKR (total knee replacement), left Allergies No known active allergiesdocumented as of this encounter (statuses as of 12/20/2023) Medications Medication Sig Dispensed Refills Start Date End Date Status Insulin Syringe-Needle U-100 (BD INSULIN SYR ULTRAFINE II) 31G X 5/16" 1 ML MISCIndications:Ty pe 2 diabetes mellitus with hemoglobin A1c goal of less than 8.0% ([facility]),DM type 2 nursing care encounter ([facility]) use with insulin twice daily [address] 5 8 Active Acetaminophen 325 MG Oral Tablet Take 1 Tablet by mouth every 6 hours as needed for Pain. 0 Active nystatin 178394 UNIT/GM creamIndications:T inea corporis Apply To affected area for two weeks twice daily 45 g 2 0 Active Additional Information Patient taking differently: BID PRN, Apply To affected area for two weeks twice daily, Informant: At Discharge, Reported on 04/07/2023 [email or web address] Ultra Mini w/Device KitIndications:Typ e 2 diabetes mellitus with hemoglobin A1c goal of less than 8.0% ([facility]) Ck FS twice daily on insulin E 11.9 1 Kit 0 1 Active Lactobacillus Oral Tablet Take 1 Tablet by mouth in the morning and 1 Tablet before bedtime. 60 Tablet 1 3 Active Cetirizine HCl 10 MG Oral Tablet (ZyrTEC)Indication s:Environmental allergies Take 1 Tablet by mouth in the morning. 90 Tablet 2 3 Active Daily Value Multivitamin Oral Tablet Take 1 Tablet by mouth in the morning. 90 Tablet 0 3 Active Latanoprost 0.005 % Ophthalmic Solution (Xalatan) Instill 1 Drop into both eyes at bedtime. 2.5 mL 0 3 Active B-12 100 MCG Oral TabletIndications: B12 deficiency 1 tablet daily 90 Tablet 1 3 Active Vitamin D 25 MCG (1000 UT) Oral TabletIndications: Vitamin D deficiency 1 tablet daily 90 Tablet 1 3 Active Divalproex Sodium 500 MG Oral Tablet Delayed Release (Kaye TREVIZO)Indications:Kirk clonic jerking TAKE 1 TABLET IN THE MORNING AND 1 TABLET BEFORE BEDTIME. 180 Tablet 1 3 Active OneTouch Delica Lancets 33GIndications:Typ e 2 diabetes mellitus with hemoglobin A1c goal of less than 8.0% ([facility]) Ck FS daily E11.9 100 Each 10 3 Active Fluticasone Propionate 50 MCG/ACT Nasal Suspension (Flonase)Indicatio ns:Chronic rhinitis USE 1 SPRAY NASALLY EVERY DAY 32 g 3 3 Active Trelegy Ellipta 100-62.5-25 MCG/ACT Aerosol Powder Breath Activated (Fluticasone-Umecl idinium-Vilanterol )Indications:COPD, group B, by GOLD 2017 classification ([facility]) Inhale 1 Puff by mouth in the morning. 180 Each 3 3 Active Albuterol Sulfate (2.5 MG/3ML) 0.083% Inhalation Nebulization Solution Inhale 1 Vial via nebulizer. As directed, if needed, for shortness of breath or wheezing 0 Active [email or web address] Ultra In Vitro Strip (Glucose Blood)Indications: Type 2 diabetes mellitus with hemoglobin A1c goal of less than 8.0% ([facility]) Use as directed 2 times daily E11.9 Hx hypo/hyperglycem ia. 200 Strip 3 3 Active rOPINIRole HCl 1 MG Oral Tablet (Requip)Indication s:RLS (restless legs syndrome) Take 1 Tablet by mouth at bedtime. 90 Tablet 2 3 Active Ketoconazole 2 % External CreamIndications:T inea corporis Apply topically to affected area 2 times a day. Apply to bilateral breast fold 90 g 5 3 Active Atorvastatin Calcium 40 MG Oral Tablet (Lipitor)Indicatio ns:Type 2 diabetes mellitus with peripheral vascular disease ([facility]) Take 1 Tablet by mouth at bedtime. 90 Tablet 1 3 Active Omeprazole 20 MG Oral Capsule Delayed Release (PriLOSEC)Indicati ons:Gastroesophage al reflux disease without esophagitis TAKE 1 CAP BY MOUTH TWICE DAILY 1 HOUR PRIOR TO FIRST AND EVENING MEALS 180 Capsule 1 3 Active metFORMIN HCl ER 500 MG Oral Tablet Extended Release 24 Hour (Glucophage XR) Take 2 Tablets by mouth in the morning and 2 Tablets before bedtime. 360 Tablet 1 3 Active Gabapentin 300 MG Oral Capsule (Neurontin)Indicat ions:RLS (restless legs syndrome) Take 1 Capsule by mouth at bedtime. 90 Capsule 3 3 Active LORazepam 0.5 MG Oral Tablet (Ativan) Take 1 Tablet by mouth 3 times a day as needed for Agitation or Anxiety. 40 Tablet 0 3 Active Insulin Lispro 100 UNIT/ML Injection Solution (Humalog) Inject 4 Units under the skin in the morning and 4 Units at noon and 4 Units in the evening. Inject with meals. 0 3 Active Polyethylene Glycol 3350 17 GM/SCOOP Oral Powder (MiraLax) Take 17 g by mouth in the morning. Dissolve one heaping tablespoon in 8 ounces of water or juice.. 0 3 Active oxyBUTYnin Chloride ER 10 MG Oral Tablet Extended Release 24 Hour (Ditropan XL) Take 1 Tablet by mouth in the morning. Do not cut, crush or chew. 0 3 Active Insulin Glargine Solostar 100 UNIT/ML Subcutaneous Solution Pen-injector (Lantus SoloStar) Inject 8 Units under the skin at bedtime. 0 3 Active Melatonin 5 MG Oral Tablet Take 1 Tablet by mouth at bedtime. 0 3 Active Aspirin 81 MG Oral Tablet Delayed Release Take 1 Tablet by mouth in the morning. 0 3 Active oxyCODONE HCl 5 MG Oral Tablet (Oxy IR) Take 1 Tablet by mouth every 6 hours as needed for Pain, Severe or Pain, Moderate. 60 Tablet 0 4 Active Apixaban 5 MG Oral Tablet (Eliquis) Take 1 Tablet by mouth in the morning and 1 Tablet before bedtime. 0 4 Active Potassium Chloride 20 MEQ Oral Packet (Klor-Con) Take 20 mEq by mouth in the morning and 20 mEq before bedtime. 0 4 Active Furosemide 40 MG Oral Tablet (Lasix)Indications :Peripheral edema Take 1 Tablet by mouth in the morning. 0 4 Active Furosemide 20 MG Oral Tablet (Lasix)Indications :Peripheral edema TAKE 1 TABLET DAILY NEEDED FOR EDEMA/FLUID ACCUMULATION OR WEIGHT GAIN 90 Tablet 1 3 12/20/19 24 Discontinued Senna-Docusate Sodium 8.6-50 MG Oral Tablet Take 1 Tablet by mouth in the morning and 1 Tablet before bedtime. 0 3 12/20/19 24 Discontinued Potassium Chloride 20 MEQ Oral Packet (Klor-Con) Take 40 mEq by mouth in the morning. 0 3 12/20/19 24 Discontinued Furosemide 20 MG Oral Tablet (Lasix)Indications :Peripheral edema Take 1 Tablet by mouth in the morning. TAKE 1 TABLET DAILY NEEDED FOR EDEMA/FLUID ACCUMULATION OR WEIGHT GAIN. 0 4 12/20/19 24 Discontinued documented as of this encounter (statuses as of 12/20/2023) Active Problems Problem Noted Date Diagnosed Date [...] classification 07/26 Overview: Noted on screening CT buttermaker (current) use of insulin 05/16/2019 Type 2 diabetes mellitus with peripheral vascula r disease 05/16/2019 Elevated diaphragm 05/16/2019 History of colon polyps 05/09/2019 BPPV (benign paroxysmal positional vertigo), rig ht 04/28/2018 Coronary artery disease invo lving [place] coronary artery of [place] heart without angina pectoris 04/28/2018 Overactive bladder 12/12/2017 DM type 2 with diabetic peripheral neuropathy History of breast cancer 10/28/2016 Overview: S/p lumpectomy, XRT Arthritis of hand, degenerative 05/19/2015 Dyslipidemia, goal LDL below 100 10/06/2014 Nephrolithiasis 07/27/2014 Panic attacks 07/27/2014 Type 2 diabetes mellitus wit h hemoglobin A1c goal of less than 8.0% 05/28/2014 Overview: 05/10/14 a1c 9.4 @[facility]. documented as of this encounter (statuses as of 12/20/2023) Resolved Problems Problem Noted Date Diagnosed Date [...] 12/24/201405/2019 Acute pyelonephritis 07/27/2014 016 Overview: 06/15 [facility] ER +sepss Blood cx neg D/c on omnicef. Well adult exam 05/28/2014 09/20/2023 Overview: 02/25/23 CTA chest-1cm scletotic T4 lesion BONE SCAN no uptake. Need eval fatty liver/ update EKG. [facility] did not have on file. 05/22 EEG 72h WNL. EMG--This electrodiagnostic study is suggestive of a mild right median neuropathy at the wrist (carpal tunnel syndrome). There is no convincing electrodiagnostic evidence of a large fiber polyneuropathy. There is no electrophysiological evidence of a myopathy. 04/18 [facility] cardiac cath moderate disease small vessels, not stentable. . +borderline stress echo. EF 55-60. Mild LVH. Gr byrd dys. 10/[address] 06/16 repeat mammo/US ordered 12/14 Dr Barragan. 2 tubular adenoma <1cm Daughter Jennifer Winkler 06/15 [facility] ER ?pyelo. +powell sens E Coli documented as of this encounter (statuses as of 12/20/2023) Immunizations Name Administration Dates Next Due Pneumococcal [...] as of this encounter Progress Notes * Noah Montaño MD - 12/20/2023 3:05 PM EDT Regulatory Visit TRANSITION EVENT: Type: Regulatory visit Date: December 19 Code Status: Full Code Name: Criselda Patrick Date of : 1950 This note pertains to care provided at [facility]. Please see facility medical record for original note. This note is not to be edited or addended in [place]. Editing or addending needs to occur in the facilities medical record. S: Criselda Patrick seen today as part of a regulatory visit. Has history of : Patient Active Problem List Diagnosis Code Type 2 diabetes mellitus with hemoglobin A1c goal of less than 8.0% ([facility]) E11.9 Nephrolithiasis N20.0 Panic attacks F41.0 Dyslipidemia, goal LDL below 100 E78.5 Arthritis of hand, degenerative M19.049 History of breast cancer Z85.3 DM type 2 with diabetic peripheral neuropathy ([facility]) E11.42 Overactive bladder N32.81 BPPV (benign paroxysmal positional vertigo), right H81.11 Coronary artery disease involving [place] coronary artery of [place] heart without angina pectoris I25.10 History of colon polyps Z86.010 buttermaker (current) use of insulin ([facility]) Z79.4 Type 2 diabetes mellitus with peripheral vascular disease ([facility]) E11.51 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 COPD, group B, by GOLD 2017 classification ([facility]) J44.9 Gastroesophageal reflux disease without esophagitis K21.9 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[facility]) G40.409 BMI 40.0-44.9, adult ([facility]) Z68.41 Full code status Z78.9 Primary osteoarthritis of both knees M17.0 Lesion of bone of thoracic spine M89.9 Medical home patient encounter Z00.8 S/P TKR (total knee replacement), left Z96.652 Slow transit constipation K59.01 Venous insufficiency I87.2 History of 2019 novel coronavirus disease (COVID-19) Z86.16 Obesity, morbid (more than 100 lbs over ideal weight or BMI > 40) ([facility]) E66.01 Acute deep vein thrombosis (DVT) of femoral vein of left lower extremity ([facility]) I82.412 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 no severe CAD COLONOSCOPY, DIAGNOSTIC (RECTUM) 12/19/2014 adenomatous polyp, diverticulosis, repeat 5 yrs/[facility] MISCELLANEOUS ORDER ([facility] ONLY) Right 1997 lumpectomy right breast cancer [place] ARTHRP KNE CONDYLE&PLATU MEDIAL&LAT COMPARTMENTS Left 07/28/2023 TKA left, Dr Taylor [facility] REMOVE CATARACT, INSERT LENS PROSTH Left 12/27/2018 left EXTRACAPSULAR CATARACT REMOVAL WITH INTRAOCULAR LENS performed by Santiago Gill MD at OR [facility] REMOVE CATARACT, INSERT LENS PROSTH Right 01/15/2019 right EXTRACAPSULAR CATARACT REMOVAL WITH INTRAOCULAR LENS performed by Santiago Gill MD at OR 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 Current problems include reported toe pain of the 1st toe on right foot for several days. Worried about gout. No redness or swelling. She was seen 12/15/23 at patient request for lower extremity edema, left worse than right. Diagnosed with acute LLE DVT and started on Eliquis 11/24/23. Patient is very sedentary and has done poorly with PT since admission here. Was also in [facility] for PT after planned TKA and here for ongoing therapy. Weight is down several pounds after increase in Lasix for 3 days. BMP remains normal. Is having pain issues. Pain being treated with Lidocaine patch, gabapentin, and as needed Tylenol and oxycodone. Is having current behavioral problems. Including poor participation in therapy and self-care and isbeing treated with redirection. Results for orders placed or performed in visit on 12/18/23 BASIC METABOLIC PANEL Result Value Ref Range BUN 11 6 - 20 mg/dL Creatinine 0.6 0.5 - 1.0 mg/dL Estimated Glomerular Filtration Rate >90 >=60 mL/min Sodium 138 135 - 146 mmol/L Potassium 4.5 3.5 - 5.1 mmol/L Chloride 97 (L) 98 - 107 mmol/L CO2 29 22 - 32 mmol/L Anion Gap 12 7 - 15 mmol/L Glucose 111 70 - 120 mg/dL Calcium 9.2 8.4 - 10.2 mg/dL CBC Results: Results for orders placed or [...] fL nRBCs 0 <=0 /100 WBCs Hemoglobin AIC Results: Lab Results Component Value Date/Time HEMOGLOBIN A1C - [facility] 5.6 01/05/2022 09:40 AM HEMOGLOBIN A1C - [facility] 5.8 (H) 06/17/2021 12:36 PM HEMOGLOBIN A1C - [facility] 5.9 (H) 12/21/2020 09:15 AM HEMOGLOBIN A1C - [facility] 5.8 (H) 06/23/2020 09:38 AM HEMOGLOBIN A1C - [facility] 5.5 07/05/2019 08:37 AM HEMOGLOBIN A1C - [facility] 5.6 10/31/2018 12:10 PM ROS: CONSTITUTIONAL: No fatigue, No fevers, sweats, or chills, and +generalized weakness, weight is down4 pounds. Just received 3 days of extra Lasix EYE: No recent significant change in vision and No eye pain, redness, discharge, +glaucoma EARS: No ear pain, No drainage, No tinnitus or vertigo, and No recent change in hearing NOSE: No history of frequent colds or sinusitis, No nasal stuffiness, No history of Hay Fever, and No significant epistaxis MOUTH: No bleeding gums, No thrush, or No sore throat PULMONARY: No cough, sputum, or hemoptysis, No wheezing, and No recent change in breathing CARDIOVASCULAR: No chest pain, No shortness of breath, No orthopnea, No paroxysmal nocturnal dyspnea, No palpitations, No syncope, and +edema GASTROINTESTINAL: No abdominal pain, No change in bowel habits, No significant heartburn, No hematemesis, No blood in stools or black tarry stools, No abdominal bloating or early satiety, No dysphagia, and +reduced appetite FEMALE: No dysuria and No frequency HEMATOLOGIC: No anemia, No abnormal bleeding, No chills, and +acute LLE DVT EXTREMITIES: +edema, acute LLE DVT, s/p left TKA SKIN/INTEGUMENTARY: No rash NEUROLOGIC: No headaches and +myoclonic epilepsy, dementia PSYCHIATRIC: +depression, anxiety, and panic attacks O: I reviewed the most recent facilities vitals. General: alert, no distress, well nourished, well developed, and obese Head: Normocephalic, No masses, lesions, tenderness or abnormalities Neuro: alert & oriented x 3 with fluent speech but somewhat slow to respond, no focal motor/sensory deficits Eye Exam: PERRLA, extraocular movements intact, conjunctiva are pink and non- injected, sclera clear Ears: External ears normal Nose: no mucosal erythema, no mucosal edema, no purulent discharge Oropharynx: no exudate, no erythema, lips, buccal mucosa, and tongue normal, and mucous membranes are moist Neck: supple, no adenopathy, no bruits Heart: regular rate & rhythm, no murmur, and no gallops Lungs: chest symmetric with normal AP diameter, no chest deformities noted, no chest wall tenderness, lungs clear to auscultation Abdomen: abdomen soft, non-tender, normal bowel sounds, and no masses or organomegaly Extremities: 2+ edema right lower extremity. Right great toe without redness, warmth, or tenderness. 3+ edema left lower extremity. Tubigrips in place bilaterally A: Acute deep vein thrombosis (DVT) of femoral vein of left lower extremity ([facility]) (Primary)--continue Eliquis. Provoked by left knee replacement and sedentary status since replacement. 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 Type 2 diabetes mellitus with hemoglobin A1c goal of less than 8.0% ([facility])--check A1c. Continue insulin glargine 8 units daily and Novolog 4 units with meals and metformin. Obesity, morbid (more than 100 lbs over ideal weight or BMI > 40) ([facility])--very sedentary Panic attacks--continue lorazepam 0.5 mg twice daily as needed. Dyslipidemia, goal LDL below 100--continue atorvastatin 40 mg daily Peripheral edema--increase Lasix as below. DM type 2 with diabetic peripheral neuropathy ([facility])--continue gabapentin 300 mg at bedtime. COPD, group B, by GOLD 2017 classification ([facility])--continue albuterol PRN Coronary artery disease involving [place] coronary artery of [place] heart without angina pectoris--continue aspirin 81 mg daily, statin 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[facility])--continue divalproex S/P TKR (total knee replacement), left--has done poorly with therapy and requiring LTC. P: Medications reviewed. Please refer to MAR in the facility's medical record for the most up-to-date medication list. Continue present medication(s):, Change doses of medication(s): Increase furosemide to 40 mg daily due to ongoing lymphedema, slightly improved with 3 days of 40 mg of Lasix, and Schedule labs: A1C and BMP 12/25/23. No sign of gout of toes. Reviewed retirement record for: vital signs, weight, bowel, and bladder function, and ADLs. Labs reviewed Continue current treatment plan as ordered Continue to follow up as needed and as scheduled [facility] Given: Diuretic PO Lasix 40 mg daily as above Electronically signed by: Noah Montaño MD I spent a total of 34 minutes coordinating, documenting, and providing care for this patient excluding time spent in the performance of separately billed services or time spent by another provider/QHP. documented in this encounter Plan of Treatment Upcoming Encounters Date Type Department Care Team (Late st Contact Info) Description 01/23/2024 1:00 PM EDT [facility] [address] [place] [address] Nickolas Del Castillo, [address] [place] [address] Health Maintenance Due Date Last Done Comments [...] 02/10/2015 LUNG CANCER SCREENING - USE SMARTSET [id number] Completed 07/30/2021, 07/20/2020, 07/17/2019, Additional history exists [...] this encounter Medical Devices Implanted Type Area Economic Analyst Device Identifier Shelf Expiration Date Model / Serial / Lot Lens Intraoc 21.0 - [id number] - [id number] Implanted:Qty: 1 on 12/27/2018 by Santiago Gill MD at OR [facility] Left: Eye [employer] 03/01/2023 [id number] / [id number] / [id number] Lens Intraoc 21.5 - [id number] - [id number] Implanted:Qty: 1 on 01/15/2019 by Santiago Gill MD at OR 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) Type 2 diabetes mellitus with hemoglobin A1c goal of less than 8.0% (HCC) Obesity, morbid (more than 100 lbs over ideal weight or BMI > 40) (HCC) Morbid obesity Panic attacks Panic disorder without agoraphobia Dyslipidemia, goal LDL below 100 Other and unspecified hyperlipidemia Peripheral edema Edema DM type 2 with diabetic peripheral neuropathy ([facility]CC) Type II or unspecified type diabetes mellitus with neurological manifestations, not stated as uncontrolled COPD, group B, by GOLD 2017 classification ([facility]) Coronary artery disease involving [place] coronary artery of [place] heart without angina pectoris 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 S/P TKR (total knee replacement), left documented in this encounter Advance Directives Healthcare Agents on File Name Relationship Healthcare Agent Relationshi p Communication Gene Sana Spouse Health Care Repr esentative (appointed verbally by patient or by statute hierarchy) Care Teams Web Content Executive Relationship Specialty Start Date End Date Renny Abdi MD [address] [place] [id number] PCP - General Family Medicine 10/06/14 documented as of this encounter
--- OUTSIDE RECORDS SUMMARY | 2024-01-23 18:29 | External Medical Summary | Summary of Care ---
Author Name Unknown Organization [facility] Address [address] [place] [address] Phone [phone] Care Team Providers Care Grants Specialist Name Role Phone Renny Abdi MD Primary Care Provider + Reason for Visit * Reason Onset Date Comments Shelter Visit 12/07/2023 Encounter Details Date Type Department Care Team (Latest Contact Info) Description 12/07/2023 10:00 AM EST Shelter Visit [facility] [address] [place] [address] Kindra Pitts PA-C [address] [place] [address] Acute deep vein thrombosis (DVT) of femoral vein of left lower extremity (HCC)*; Cellulitis of left leg; Type 2 diabetes mellitus with hemoglobin A1c goal of less than 8.0% ([facility]) Allergies No known active allergiesdocumented as of this encounter (statuses as of 12/07/2023) Medications Medication Sig Dispensed Refills Start Date [...] as needed for Pain. 0 Active nystatin 261796 UNIT/GM creamIndications:Tin ea corporis Apply To affected area for two weeks twice daily 45 g 2 12/06/2019 Active Additional Information Patient taking differently: BID PRN, Apply To affected area for two weeks twice daily, Informant: At Discharge, Reported on 04/07/2023 Frankly Chat Ultra Mini w/Device KitIndications:Type 2 diabetes mellitus with hemoglobin A1c goal of less than 8.0% (HCC) Ck FS twice daily on insulin E [...] BEFORE BEDTIME. 180 Tablet 1 03/20/2023 Active DynadecTouch Delica Lancets 33GIndications:Type 2 diabetes mellitus with hemoglobin A1c goal of less than 8.0% (HCC) Ck FS daily E11.9 100 Each 10 03/20/2023 Active Fluticasone Propionate 50 MCG/ACT Nasal Suspension (Flonase)Indications :Chronic rhinitis USE 1 SPRAY NASALLY EVERY DAY 32 g 3 03/20/2023 Active Trelegy Ellipta 100-62.5-25 MCG/ACT Aerosol Powder Breath Activated (Fluticasone-Umeclid inium-Vilanterol)Ind ications:COPD, group B, by GOLD 2017 classification ([facility]) Inhale 1 Puff by mouth in the morning. 180 Each 3 03/20/2023 Active Albuterol Sulfate (2.5 MG/3ML) 0.083% Inhalation Nebulization Solution Inhale 1 Vial via nebulizer. As directed, if needed, for shortness of breath or wheezing 0 Active OneTouch Ultra In Vitro Strip (Glucose Blood)Indications:Ty pe 2 diabetes mellitus with hemoglobin A1c goal of less than 8.0% ([facility]) Use as directed 2 times [...] mellitus with peripheral vascular disease ([facility]) Take 1 Tablet by mouth [...] as of this encounter (statuses as of 12/07/2023) Active Problems Problem Noted Date Diagnosed Date [...] classification 07/26 Overview: Noted on screening CT [facility] (current) use of insulin 05/16/2019 Type 2 diabetes mellitus with peripheral vascula r disease 05/16/2019 Elevated diaphragm 05/16/2019 History of colon polyps 05/09/2019 BPPV (benign paroxysmal positional vertigo), rig ht 04/28/2018 Coronary artery disease invo lving [place] coronary artery of [place] heart without angina pectoris 04/28/2018 Overactive bladder 12/12/2017 DM type 2 with diabetic peripheral neuropathy History of breast cancer 10/28/2016 Overview: S/p lumpectomy, XRT Arthritis of hand, degenerative 05/19/2015 Dyslipidemia, goal LDL below 100 10/06/2014 Nephrolithiasis 07/27/2014 Panic attacks 07/27/2014 Type 2 diabetes mellitus wit h hemoglobin A1c goal of less than 8.0% 05/28/2014 Overview: 05/10/14 a1c 9.4 @[facility]. documented as of this encounter (statuses as of 12/07/2023) Resolved Problems Problem Noted Date Diagnosed Date [...] 12/24/201405/2019 Acute pyelonephritis 07/27/2014 016 Overview: 06/15 [facility] ER +sepss Blood cx neg D/c on omnicef. Well adult exam 05/28/2014 09/20/2023 Overview: 02/25/23 CTA chest-1cm scletotic T4 lesion BONE SCAN no uptake. Need eval fatty liver/ update EKG. [facility] did not have on file. 05/22 EEG 72h WNL. EMG--This electrodiagnostic study is suggestive of a mild right median neuropathy at the wrist (carpal tunnel syndrome). There is no convincing electrodiagnostic evidence of a large fiber polyneuropathy. There is no electrophysiological evidence of a myopathy. 04/18 [facility] cardiac cath moderate disease small vessels, not stentable. . +borderline stress echo. EF 55-60. Mild LVH. Gr byrd dys. 10/[address] 06/16 repeat mammo/US ordered 12/14 Dr Barragan. 2 tubular adenoma <1cm Daughter Jennifer Winkler 06/15 [facility] ER ?pyelo. +powell sens E Coli documented as of this encounter (statuses as of 12/07/2023) Immunizations Name Administration Dates Next Due Pneumococcal [...] 01/23/2024 1:00 PM EDT Office Visit Neurology Anali Pitts [place] [address] [facility] [place] [address] Nickolas Del Castillo, [address] [place] [address] Health Maintenance Due Date Last Done Comments [...] 02/10/2015 LUNG CANCER SCREENING - USE SMARTSET 11444 Completed 07/30/2021, 07/20/2020, 07/17/2019, Additional history exists [...] this encounter Medical Devices Implanted Type Area Annual Campaign Manager Device Identifier Shelf Expiration Date Model / Serial / Lot Lens Intraoc 21.0 - [id number] - [id number] Implanted:Qty: 1 on 12/27/2018 by Santiago Gill MD at OR [facility] Left: Eye BAUSCH [employer] LOMB 03/01/2023 [id number] / [id number] / [id number] Lens Intraoc 21.5 - [id number] - [id number] Implanted:Qty: 1 on 01/15/2019 by Santiago Gill MD at OR [facility] Right: Eye BAUSCH & LOMB 08/01/2023 [id number] / [id number] / documented as of this encounter Visit Diagnoses Diagnosis Acute deep vein thrombosis (DVT) of femoral vein of left lower extremity (HCC)- Primary Cellulitis of left leg Cellulitis and abscess of leg, except foot Type 2 diabetes mellitus with hemoglobin A1c goal of less than 8.0% ([facility]) documented in this encounter Advance Directives Healthcare Agents on File Name Relationship Healthcare Agent Relationshi p Communication Gene [place] Spouse Health Care Repr esentative (appointed verbally by patient or by statute hierarchy) Care Teams Grants Specialist Relationship Specialty Start Date End Date Renny Abdi MD [address] [place] [address] PCP - General Family Medicine 10/06/14 documented as of this encounter
--- OUTSIDE RECORDS SUMMARY | 2024-01-23 18:29 | External Medical Summary | Summary of Care ---
Author Name Unknown Organization [facility] Address [address] [place] [address] Phone [phone] Care Team Providers Care Production Broaching Machine Operator Name Role Phone Renny Abdi MD Primary Care Provider + Reason for Visit * Reason Onset Date Comments Retirement Visit 12/15/2023 Encounter Details Date Type Department Care Team (Latest Contact Info) Description 12/15/2023 7:30 AM EDT Retirement Visit [facility] [address] [place] [address] Kindra Pitts PA-C [address] [place] [address] Acute deep vein thrombosis (DVT) of femoral vein of left lower extremity (HCC)*; Cellulitis of left leg; Chronic edema; Obesity, morbid (more than 100 lbs over ideal weight or BMI > 40) ([facility]) Allergies No known active allergiesdocumented as of this encounter (statuses as of 12/15/2023) Medications Medication Sig Dispensed Refills Start Date [...] as needed for Pain. 0 Active nystatin 913366 UNIT/GM creamIndications:Tin ea corporis Apply To affected area for two weeks twice daily 45 g 2 12/06/2019 Active Additional Information Patient taking differently: BID PRN, Apply To affected area for two weeks twice daily, Informant: At Discharge, Reported on 04/07/2023 Surphace Ultra Mini w/Device KitIndications:Type 2 diabetes mellitus [...] BEFORE BEDTIME. 180 Tablet 1 03/20/2023 Active [employer] Delica Lancets 33GIndications:Type 2 diabetes mellitus with hemoglobin A1c goal of less than 8.0% (HCC) Ck FS daily E11.9 100 Each 10 03/20/2023 Active Fluticasone Propionate 50 MCG/ACT Nasal Suspension (Flonase)Indications :Chronic rhinitis USE 1 SPRAY NASALLY EVERY DAY 32 g 3 03/20/2023 Active Trelegy Ellipta 100-62.5-25 MCG/ACT Aerosol Powder Breath Activated (Fluticasone-Umeclid inium-Vilanterol)Ind ications:COPD, group B, by GOLD 2017 classification ([facility]) Inhale 1 Puff by mouth in the morning. 180 Each 3 03/20/2023 Active Albuterol Sulfate (2.5 MG/3ML) 0.083% Inhalation Nebulization Solution Inhale 1 Vial via nebulizer. As directed, if needed, for shortness of breath or wheezing 0 Active OneTouch Ultra In Vitro Strip (Glucose Blood)Indications:Ty pe 2 diabetes mellitus with hemoglobin A1c goal of less than 8.0% ([facility]) Use as directed 2 times daily E11.9 [...] mellitus with peripheral vascular disease ([facility]) Take 1 Tablet by mouth at bedtime. [...] as of this encounter (statuses as of 12/15/2023) Active Problems Problem Noted Date Diagnosed Date [...] classification 07/26 Overview: Noted on screening CT [facility] (current) use of insulin 05/16/2019 Type 2 diabetes mellitus with peripheral vascula r disease 05/16/2019 Elevated diaphragm 05/16/2019 History of colon polyps 05/09/2019 BPPV (benign paroxysmal positional vertigo), rig ht 04/28/2018 Coronary artery disease invo lving [place] coronary artery of [place] heart without angina pectoris 04/28/2018 Overactive bladder 12/12/2017 DM type 2 with diabetic peripheral neuropathy History of breast cancer 10/28/2016 Overview: S/p lumpectomy, XRT Arthritis of hand, degenerative 05/19/2015 Dyslipidemia, goal LDL below 100 10/06/2014 Nephrolithiasis 07/27/2014 Panic attacks 07/27/2014 Type 2 diabetes mellitus wit h hemoglobin A1c goal of less than 8.0% 05/28/2014 Overview: 05/10/14 a1c 9.4 @[facility]. documented as of this encounter (statuses as of 12/15/2023) Resolved Problems Problem Noted Date Diagnosed Date [...] 12/24/201405/2019 Acute pyelonephritis 07/27/2014 016 Overview: 06/15 [facility] ER +sepss Blood cx neg D/c on omnicef. Well adult exam 05/28/2014 09/20/2023 Overview: 02/25/23 CTA chest-1cm scletotic T4 lesion BONE SCAN no uptake. Need eval fatty liver/ update EKG. [facility] did not have on file. 05/22 EEG 72h WNL. EMG--This electrodiagnostic study is suggestive of a mild right median neuropathy at the wrist (carpal tunnel syndrome). There is no convincing electrodiagnostic evidence of a large fiber polyneuropathy. There is no electrophysiological evidence of a myopathy. 04/18 [facility] cardiac cath moderate disease small vessels, not stentable. . +borderline stress echo. EF 55-60. Mild LVH. Gr byrd dys. 10/[address] 06/16 repeat mammo/US ordered 12/14 Dr Barragan. 2 tubular adenoma <1cm Daughter Jennifer Winkler 06/15 [facility] ER ?pyelo. +powell sens E Coli documented as of this encounter (statuses as of 12/15/2023) Immunizations Name Administration Dates Next Due Pneumococcal [...] PM EDT Office Visit Neurology Anali Pitts [place] [address] [facility] [place] [address] Nickolas Del Castillo, DO [address] [facility] [place] [address] Health Maintenance Due Date Last Done Comments [...] Scan 01/31/2023 02/01/2016 COVID-19 Vaccine (1 - 2023-24 season) 2023 Influenza Vaccine (FLU shot) (#1) 2023 06/16/2022, 07/08/2021, 09/11/2015, Additional history exists DTaP,Tdap,and Td Vaccines (2 - Td or Tdap) 05/28/2024 05/28/2014 O2 ASSESSMENT COMPLETED IN PAST YEAR FOR COPD 07/11/2024 07/11/2023 GFR 10/31/2024 10/31/2023, 12/04/2023, 09/20/2023, Additional history exists Alpha-1 Antitrypsin Completed 03/12/2020 Pneumococcal Vaccine: 65+ Years Completed 07/08/2021, 04/26/2016, 02/10/2015 LUNG CANCER SCREENING - USE SMARTSET [id number] Completed 07/30/2021, 07/20/2020, 07/17/2019, Additional history exists [...] this encounter Medical Devices Implanted Type Area Gasket Winder Device Identifier Shelf Expiration Date Model / Serial / Lot Lens Intraoc 21.0 - [id number] - [id number] Implanted:Qty: 1 on 12/27/2018 by Santiago Gill MD at OR [facility] Left: Eye BAUSCH & LOMB 03/01/2023 [id number] / [id number] / [id number] Lens Intraoc 21.5 - [id number] - [id number] Implanted:Qty: 1 on 01/15/2019 by Santiago Gill MD at OR [facility] Right: Eye BAUSCH & LOMB 08/01/2023 [id number] / [id number] / documented as of this encounter Visit Diagnoses Diagnosis Acute deep vein thrombosis (DVT) of femoral vein of left lower extremity (HCC)- Primary Cellulitis of left leg Cellulitis and abscess of leg, except foot Chronic edema Edema Obesity, morbid (more than 100 lbs over ideal weight or BMI > 40) (HCC) Morbid obesity documented in this encounter Advance Directives Healthcare Agents on File Name Relationship Healthcare Agent Relationshi p Communication Gene [place] Spouse Health Care Repr esentative (appointed verbally by patient or by statute hierarchy) Care Teams Production Broaching Machine Operator Relationship Specialty Start Date End Date Renny Abdi MD [address] [place] [address] PCP - General Family Medicine 10/06/14 documented as of this encounter
--- OUTSIDE RECORDS SUMMARY | 2024-01-23 18:29 | External Medical Summary | Summary of Care ---
Author Name Unknown Organization [facility] Address [address] [place] [address] Phone [phone] Care Team Providers Care Apprentice Photographer Name Role Phone Renny Abdi MD Primary Care Provider + Encounter Details Date Type Department Care Team (Late st Contact Info) Description 11/23/2023 Result Scan Unspecified Department <No scans attached> Allergies No known active allergiesdocumented as of this encounter (statuses as of 12/07/2023) Medications Medication Sig Dispensed Refills Start Date End Date Status Insulin Syringe-Needle U-100 (BD INSULIN SYR ULTRAFINE II) 31G X 5/16" 1 ML MISCIndications:Type 2 diabetes mellitus with hemoglobin A1c goal of less than 8.0% ([facility]),DM type 2 nursing care encounter ([facility]) use with insulin twice daily [address] 09/11/2018 Active Acetaminophen 325 MG Oral Tablet Take 1 Tablet by mouth every 6 hours as needed for Pain. 0 Active nystatin 735004 UNIT/GM creamIndications:Tin ea corporis Apply To affected area for two weeks twice daily 45 g 2 12/06/2019 Active Additional Information Patient taking differently: BID PRN, Apply To affected area for two weeks twice daily, Informant: At Discharge, Reported on 04/07/2023 Ec[employer] LabsTouch Ultra Mini w/Device KitIndications:Type 2 diabetes mellitus with hemoglobin A1c goal of less than 8.0% ([facility]) Ck FS twice daily on insulin [...] BEDTIME. 180 Tablet 1 03/20/2023 Active OneTouch Rik Alexander 33GIndications:Type 2 diabetes mellitus with hemoglobin A1c goal of less than 8.0% ([facility]) Ck FS daily E11.9 100 Each 10 03/20/2023 Active Fluticasone Propionate 50 MCG/ACT Nasal Suspension (Flonase)Indications :Chronic rhinitis USE 1 SPRAY NASALLY EVERY DAY 32 g 3 03/20/2023 Active Trelegy Ellipta 100-62.5-25 MCG/ACT Aerosol Powder Breath Activated (Fluticasone-Umeclid inium-Vilanterol)Ind ications:COPD, group B, by GOLD 2017 classification ([facility]) Inhale 1 Puff by mouth in the morning. 180 Each 3 03/20/2023 Active Albuterol Sulfate (2.5 MG/3ML) 0.083% Inhalation Nebulization Solution Inhale 1 Vial via nebulizer. As directed, if needed, for shortness of breath or wheezing 0 Active OneTouch Ultra In Vitro Strip (Glucose Blood)Indications:Ty pe 2 diabetes mellitus with hemoglobin A1c goal of less than 8.0% ([facility]) Use as directed 2 times daily E11.9 [...] Pain, Moderate. 60 Tablet 0 11/09/2023 Active documented as of this encounter (statuses [...] classification 07/26 Overview: Noted on screening CT [employer] (current) use of insulin 05/16/2019 Type 2 diabetes mellitus with peripheral vascula r disease 05/16/2019 Elevated diaphragm 05/16/2019 History of colon polyps 05/09/2019 BPPV (benign paroxysmal positional vertigo), rig ht 04/28/2018 Coronary artery disease invo lving [place] coronary artery of [place] heart without angina pectoris 04/28/2018 Overactive bladder 12/12/2017 DM type 2 with diabetic peripheral neuropathy History of breast cancer 10/28/2016 Overview: S/p lumpectomy, XRT Arthritis of hand, degenerative 05/19/2015 Dyslipidemia, goal LDL below 100 10/06/2014 Nephrolithiasis 07/27/2014 Panic attacks 07/27/2014 Type 2 diabetes mellitus wit h hemoglobin A1c goal of less than 8.0% 05/28/2014 Overview: 05/10/14 a1c 9.4 @[facility]. documented as of this encounter [...] 12/24/201405/2019 Acute pyelonephritis 07/27/2014 016 Overview: 06/15 [facility] ER +sepss Blood cx neg D/c on omnicef. Well adult exam 05/28/2014 09/20/2023 Overview: 02/25/23 CTA chest-1cm scletotic T4 lesion BONE SCAN no uptake. Need eval fatty liver/ update EKG. [facility] did not have on file. 05/22 EEG 72h WNL. EMG--This electrodiagnostic study is suggestive of a mild right median neuropathy at the wrist (carpal tunnel syndrome). There is no convincing electrodiagnostic evidence of a large fiber polyneuropathy. There is no electrophysiological evidence of a myopathy. 04/18 [facility] cardiac cath moderate disease small vessels, not stentable. . +borderline stress echo. EF 55-60. Mild LVH. Gr byrd dys. 10/[address] 06/16 repeat mammo/US ordered 12/14 Dr Barragan. 2 tubular adenoma <1cm Daughter Jennifer Winkler 06/15 [facility] ER ?pyelo. +powell sens E [...] Visit Neurology [place] Susan Mendoza [address] [place] [address] Nickolas Del Castillo, DO [address] [place] [address] Health Maintenance Due Date Last Done Comments [...] FOR COPD 07/11/2024 07/11/2023 GFR 10/31/2024 10/31/2023, 09/02, 09/20/2023, Additional history exists Alpha-1 Antitrypsin Completed 03/12/2020 Pneumococcal Vaccine: 65+ Years Completed 07/08/2021, 04/26/2016, 02/10/2015 LUNG CANCER SCREENING - USE SMARTSET 31481 Completed 07/30/2021, 07/20/2020, 07/17/2019, Additional history exists [...] this encounter Medical Devices Implanted Type Area Obstetrics Tech Device Identifier Shelf Expiration Date Model / Serial / Lot Lens Intraoc 21.0 - [id number] - [id number] Implanted:Qty: 1 on 12/27/2018 by Santiago Gill MD at OR [facility] Left: Eye BAUSCH [employer] LOMB 03/01/2023 [id number] / [id number] / [id number] Lens Intraoc 21.5 - [id number] - [id number] Implanted:Qty: 1 on 01/15/2019 by Santiago Gill MD at OR [facility] Right: Eye BAUSCH & LOMB 08/01/2023 [id number] / [id number] / documented as of this encounter Procedures Procedure Name Priority Date/Time Associated Diagnosis Comments RADIOLOGY SCANNED RESULT 11/23/2023 documented in this encounter Results * RADIOLOGY SCANNED RESULT (11/23/2023) 11/23/2023 No Physician Data Unknown DIAGNOSTIC RAD IOLOGY SERVICES documented in this encounter Advance Directives Healthcare Agents on File Name Relationship Healthcare Agent Relationshi p Communication Gene [place] Spouse Health Care Repr esentative (appointed verbally by patient or by statute hierarchy) Care Teams Apprentice Photographer Relationship Specialty Start Date End Date Renny Abdi MD [address] [place] [address] PCP - General Family Medicine 10/06/14 documented as of this encounter
--- OUTSIDE RECORDS SUMMARY | 2024-01-23 18:30 | External Medical Summary ---
Author Name Unknown Address Unknown Organization K01:[facility] - [address] [facility] [address] Laboratory Report Ordering Provider Test Date Status MELISSA ATKINS 12/05/2023 08:34:40 Final Observation Date Value Abnormality Reference (Units ) Status WBC, Total 12/05/2023 08:34:40 7.77 4.00-10.80 (K/uL) Final RBC 12/05/2023 08:34:40 4.56 3.85-5.15 (M/uL) Final Hemoglobin 12/05/2023 08:34:40 12.0 12.0-15.3 (g/dL) Final HCT 12/05/2023 08:34:40 38.1 36.0-45.2 (%) Final MCV 12/05/2023 08:34:40 83.6 81.5-97.5 (fL) Final MCH 12/05/2023 08:34:40 26.3 27.0-34.0 (pg) Final MCHC 12/05/2023 08:34:40 31.5 32.0-36.0 (g/dL) Final RDW 12/05/2023 08:34:40 18.9 11.5-15.5 (%) Final Platelets 12/05/2023 08:34:40 199 140-400 (K/uL) Final MPV 12/05/2023 08:34:40 9.9 6.6-11.1 (fL) Final Nucleated erythrocytes/100 leukocytes [Ratio] in Blood by Automated count 12/05/2023 08:34:40 0 <=0 (/100 WBCs) Final Performing Location [facility] - [address] [place] [address]
--- OUTSIDE RECORDS SUMMARY | 2024-01-23 18:30 | External Medical Summary | Continuity Of Care Document ---
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 08/21/2023 Active M62.81 Muscle weakness (generalized) 08/28/2023 Active R26.2 Difficulty in walking, not elsewhere classified 08/28/2023 Active Z74.9 Problem related to c are provider dependency, unspecified 08/28/2023 Active U07.1 COVID-19 08/21/2023 Active Z96.652 Presence of left artificial knee joint 08/21/20 23 Active VITAL SIGNS Date Time Diastolic blood pressure Systolic blood pressure Body height Body weight Temperature SpO2 Blood Sugar Pulse Respirations 89803 128 72648 4 99.50 Oral 76835 128 46290 5 99.60 Oral 07240 129 55368 1 97.80 Oral 17377 129 81082 6 78.00 mm[Hg] - Sitting 121.00 mm[Hg] - Sitting 99.70 Oral 92.00 % 80.00/ min 20.00/min 18419 129 40881 1 98.70 Ear 04333 130 11536 9 98.70 Oral 23884 131 92528 4 98.10 Oral 25060 131 39979 0 98.50 Oral 94229 131 68049 5 96.20 Oral 94524 131 89500 3 98.30 Ear 83636 131 11442 0 97.60 Oral 82402 201 02427 4 98.00 Oral 85307 201 92729 0 97.00 Oral 70507 201 56596 6 97.60 Oral 38161 201 99901 6 97.60 Oral 07242 202 58481 7 96.80 Oral 63307 202 41501 9 96.80 Oral 33716 203 53623 2 97.40 Oral 47511 203 44439 5 96.90 Oral 73405 203 27693 1 96.70 Oral 89123 204 16928 5 97.10 Ear 70988 204 32212 0 97.30 Ear 50452 204 61558 4 97.00 Oral 39674 204 34458 0 97.30 Oral 50952 205 15219 2 97.30 Oral 20661 205 01599 3 97.30 Oral 67082 206 90057 4 233.00 NI 08978 206 30016 4 97.80 Ear 20233 206 05805 6 80.00 mm[Hg] - Sitting 122.00 mm[Hg] - Sitting 98.40 Ear 82.00/ min 23849 207 95713 6 97.30 Oral 28488 207 55856 6 127.00 mg/dL 15208 207 48283 8 97.20 Oral Immunizations Vaccine Date Status COVID-19 03/07/2023 Resident Refused Influenza 06/16/2022 Completed (PCV13)Pneumococcal 04/26/2016 Completed (PPSV23)Pneumococcal 07/08/2021 Completed Shingles 09/11/2014 Completed TDaP 05/28/2014 Completed
--- OUTSIDE RECORDS SUMMARY | 2024-01-23 18:30 | External Medical Summary | Continuity Of Care Document ---
Author Name Unknown Address [address] [place] [address] Organization [facility] ( ) Care Team Providers Care Certified Orthoptist Name Role Phone Noah Montaño Primary Care Provider [phone] Problems Code Description Start Date End Date [...] tive I25.10 Atherosclerotic hear t disease of [place] coronary artery without angina pectoris 08/21/2023 Active [...] weight Temperature SpO2 Blood Sugar Pulse Respirations 87116 128 52617 4 99.50 Oral 26020 128 19587 5 99.60 Oral 03839 129 92806 1 97.80 Oral 90134 129 72018 6 78.00 mm[Hg] - Sitting 121.00 mm[Hg] - Sitting 99.70 Oral 92.00 % 80.00/ min 20.00/min 41009 129 71828 1 98.70 Ear 11279 130 85920 9 98.70 Oral 39015 131 12611 4 98.10 Oral 11534 131 57227 0 98.50 Oral 24697 131 19153 5 96.20 Oral 87035 131 49343 3 98.30 Ear 24853 131 42599 0 97.60 Oral 02619 201 98612 4 98.00 Oral 81056 201 82492 0 97.00 Oral 07667 201 73613 6 97.60 Oral 41667 201 78205 6 97.60 Oral 50239 202 00046 7 96.80 Oral 35989 202 10963 9 96.80 Oral 23663 203 10688 2 97.40 Oral 73197 203 32452 5 96.90 Oral 30737 203 54804 1 96.70 Oral 48067 204 48038 5 97.10 Ear 02664 204 22547 0 97.30 Ear 47885 204 92553 4 97.00 Oral 29789 204 86439 0 97.30 Oral 81722 205 12496 2 97.30 Oral 61520 205 89991 3 97.30 Oral 55305 206 76112 4 233.00 NI 73585 206 16599 4 97.80 Ear 48653 206 86585 6 80.00 mm[Hg] - Sitting 122.00 mm[Hg] - Sitting 98.40 Ear 82.00/ min 71930 207 22756 6 97.30 Oral 40809 207 89529 6 127.00 mg/dL 30562 207 20905 8 97.20 Oral Immunizations Vaccine Date Status COVID-19 03/07/2023 Resident Refused Influenza 06/16/2022 Completed (PCV13)Pneumococcal 04/26/2016 Completed (PPSV23)Pneumococcal 07/08/2021 Completed Shingles 09/11/2014 Completed TDaP 05/28/2014 Completed
--- OUTSIDE RECORDS SUMMARY | 2024-01-23 18:30 | External Medical Summary | Summary of Care ---
Author Name Unknown Organization [facility] Address [address] [place] [address] Phone [phone] Care Team Providers Care Air Quality Chemist Name Role Phone Renny Abdi MD Primary Care Provider + Encounter Details Date Type Department Care Team (Late st Contact Info) Description 12/06/2023 Population Health External Data Unspecified Department Allergies No known active allergiesdocumented as of this encounter (statuses as of 12/06/2023) Medications Medication Sig Dispensed Refills Start Date End Date Status Insulin Syringe-Needle U-100 (BD INSULIN SYR ULTRAFINE II) 31G X 5/16" 1 ML MISCIndications:Type 2 diabetes mellitus with hemoglobin A1c goal of less than 8.0% ([facility]),DM type 2 nursing care encounter ([facility]) use with insulin twice daily [address] 09/11/2018 Active Acetaminophen 325 MG Oral Tablet Take 1 Tablet by mouth every 6 hours as needed for Pain. 0 Active nystatin 877478 UNIT/GM creamIndications:Tin ea corporis Apply To affected area for two weeks twice daily 45 g 2 12/06/2019 Active Additional Information Patient taking differently: BID PRN, Apply To affected area for two weeks twice daily, Informant: At Discharge, Reported on 04/07/2023 ClariticsTouch Ultra Mini w/Device KitIndications:Type 2 diabetes mellitus with hemoglobin A1c goal of less than 8.0% ([facility]) Ck FS twice daily on insulin [...] than 8.0% ([facility]) Ck FS daily E11.9 100 Each 10 03/20/2023 Active Fluticasone Propionate 50 MCG/ACT Nasal Suspension (Flonase)Indications :Chronic rhinitis USE 1 SPRAY NASALLY EVERY DAY 32 g 3 03/20/2023 Active Trelegy Ellipta 100-62.5-25 MCG/ACT Aerosol Powder Breath Activated (Fluticasone-Umeclid inium-Vilanterol)Ind ications:COPD, group B, by GOLD 2017 classification ([facility]) Inhale 1 Puff by mouth in the morning. 180 Each 3 03/20/2023 Active Albuterol Sulfate (2.5 MG/3ML) 0.083% Inhalation Nebulization Solution Inhale 1 Vial via nebulizer. As directed, if needed, for shortness of breath or wheezing 0 Active OneTouch Ultra In Vitro Strip (Glucose Blood)Indications:Ty pe 2 diabetes mellitus with hemoglobin A1c goal of less than 8.0% ([facility]) Use as directed 2 times daily E11.9 [...] as of this encounter (statuses as of 12/06/2023) Active Problems Problem Noted Date Diagnosed Date [...] ht 04/28/2018 Coronary artery disease invo lving [place] coronary artery of [place] heart without angina pectoris 04/28/2018 Overactive bladder 12/12/2017 DM type 2 with diabetic peripheral neuropathy History of breast cancer 10/28/2016 Overview: S/p lumpectomy, XRT Arthritis of hand, degenerative 05/19/2015 Dyslipidemia, goal LDL below 100 10/06/2014 Nephrolithiasis 07/27/2014 Panic attacks 07/27/2014 Type 2 diabetes mellitus wit h hemoglobin A1c goal of less than 8.0% 05/28/2014 Overview: 05/10/14 a1c 9.4 @[facility]. documented as of this encounter (statuses as of 12/06/2023) Resolved Problems Problem Noted Date Diagnosed Date [...] 12/24/201405/2019 Acute pyelonephritis 07/27/2014 016 Overview: 06/15 [facility] ER +sepss Blood cx neg D/c on omnicef. Well adult exam 05/28/2014 09/20/2023 Overview: 02/25/23 CTA chest-1cm scletotic T4 lesion BONE SCAN no uptake. Need eval fatty liver/ update EKG. [facility] did not have on file. 05/22 EEG 72h WNL. EMG--This electrodiagnostic study is suggestive of a mild right median neuropathy at the wrist (carpal tunnel syndrome). There is no convincing electrodiagnostic evidence of a large fiber polyneuropathy. There is no electrophysiological evidence of a myopathy. 04/18 [facility] cardiac cath moderate disease small vessels, not stentable. . +borderline stress echo. EF 55-60. Mild LVH. Gr byrd dys. 10/[address] 06/16 repeat mammo/US ordered 12/14 Dr Barragan. 2 tubular adenoma <1cm Daughter Jennifer Winkler 06/15 [facility] ER ?pyelo. +powell sens E Coli documented as of this encounter (statuses as of 12/06/2023) Immunizations Name Administration Dates Next Due Pneumococcal [...] Neurology State Susan Mendoza [address] [place] [address] Nickolas Del Castillo, [address] [place] [address] Health Maintenance Due Date Last Done Comments [...] 02/10/2015 LUNG CANCER SCREENING - USE SMARTSET [id number] Completed 07/30/2021, 07/20/2020, 07/17/2019, Additional history exists [...] this encounter Medical Devices Implanted Type Area Commanding Officer Traffic Division Device Identifier Shelf Expiration Date Model / Serial / Lot Lens Intraoc 21.0 - [id number] - [id number] Implanted:Qty: 1 on 12/27/2018 by Santiago Gill MD at OR [facility] Left: Eye [employer] 03/01/2023 [id number] / [id number] / [id number] Lens Intraoc 21.5 - [id number] - [id number] Implanted:Qty: 1 on 01/15/2019 by Santiago Gill MD at OR [facility] Right: Eye [employer] 08/01/2023 [id number] / [id number] / documented as of this encounter Advance Directives Healthcare Agents on File Name Relationship Healthcare Agent Relationshi p Communication Gene Power Spouse Health Care Repr esentative (appointed verbally by patient or by statute hierarchy) Care Teams Air Quality Chemist Relationship Specialty Start Date End Date Renny Abdi MD [address] [place] [address] PCP - General Family Medicine 10/06/14 documented as of this encounter
--- OUTSIDE RECORDS SUMMARY | 2024-01-23 18:30 | External Medical Summary | Continuity Of Care Document ---
Author Name Unknown Address [address] [place] [address] Organization [facility] ( ) Care Team Providers Care Tentmaker Name Role Phone Noah Montaño Primary Care Provider [phone] Problems Code Description Start Date End Date [...] tive I25.10 Atherosclerotic hear t disease of [place] coronary artery without angina pectoris 08/21/2023 Active [...] weight Temperature SpO2 Blood Sugar Pulse Respirations 23001 128 08516 4 99.50 Oral 91219 128 57570 5 99.60 Oral 44466 129 41034 1 97.80 Oral 64229 129 55275 6 78.00 mm[Hg] - Sitting 121.00 mm[Hg] - Sitting 99.70 Oral 92.00 % 80.00/ min 20.00/min 53623 129 37390 1 98.70 Ear 09125 130 92238 9 98.70 Oral 50078 131 72460 4 98.10 Oral 81360 131 57681 0 98.50 Oral 69906 131 78517 5 96.20 Oral 80168 131 59453 3 98.30 Ear 06121 131 94164 0 97.60 Oral 81580 201 72170 4 98.00 Oral 02977 201 36849 0 97.00 Oral 42694 201 94487 6 97.60 Oral 97973 201 96401 6 97.60 Oral 72439 202 06362 7 96.80 Oral 23732 202 61525 9 96.80 Oral 47992 203 92774 2 97.40 Oral 85160 203 28397 5 96.90 Oral 38081 203 28162 1 96.70 Oral 44540 204 39380 5 97.10 Ear 31020 204 48607 0 97.30 Ear 64838 204 78414 4 97.00 Oral 85761 204 66225 0 97.30 Oral 66429 205 11752 2 97.30 Oral 20027 205 58700 3 97.30 Oral 31714 206 41990 4 233.00 NI 19227 206 93747 4 97.80 Ear 79266 206 32962 6 80.00 mm[Hg] - Sitting 122.00 mm[Hg] - Sitting 98.40 Ear 82.00/ min 17103 207 34880 6 97.30 Oral 01488 207 90552 6 127.00 mg/dL 58569 207 84199 8 97.20 Oral Immunizations Vaccine Date Status COVID-19 03/07/2023 Resident Refused Influenza 06/16/2022 Completed (PCV13)Pneumococcal 04/26/2016 Completed (PPSV23)Pneumococcal 07/08/2021 Completed Shingles 09/11/2014 Completed TDaP 05/28/2014 Completed
--- OUTSIDE RECORDS SUMMARY | 2024-01-23 18:30 | External Medical Summary | Summary of Care ---
Author Name Unknown Organization [facility] Address [address] [place] [address] Phone [phone] Care Team Providers Care Presidential Helicopter Crew Chief Name Role Phone Renny Abdi MD Primary Care Provider + Reason for Visit * Reason Onset Date Comments [facility] Visit 11/30/2023 Encounter Details Date Type Department Care Team (Latest Contact Info) Description 11/30/2023 6:00 AM EST [facility] Visit [facility] [address] [place] [address] Kindra Pitts PA-C [address] [place] [address] Acute deep vein thrombosis (DVT) of femoral vein of left lower extremity (HCC)*; Cellulitis of left leg; Coronary artery disease involving [place] coronary artery of [place] heart without angina pectoris; Obesity, morbid (more than 100 lbs over ideal weight or BMI > 40) ([facility]); Hypokalemia Allergies No known active allergiesdocumented as of this encounter (statuses as of 11/30/2023) Medications Medication Sig Dispensed Refills Start Date End Date Status Insulin Syringe-Needle U-100 (BD INSULIN SYR ULTRAFINE II) 31G X 5/16" 1 ML MISCIndications:Type 2 diabetes mellitus with hemoglobin A1c goal of less than 8.0% (HCC),DM type 2 nursing care encounter ([facility]) use with insulin twice daily [address] 09/11/2018 Active Acetaminophen 325 MG Oral Tablet Take 1 Tablet by mouth every 6 hours as needed for Pain. 0 Active nystatin 660201 UNIT/GM creamIndications:Tin ea corporis Apply To affected area for two weeks twice daily 45 g 2 12/06/2019 Active Additional Information Patient taking differently: BID PRN, Apply To affected area for two weeks twice daily, Informant: At Discharge, Reported on 04/07/2023 Exosite Mini w/Device KitIndications:Type 2 diabetes mellitus with [...] BEFORE BEDTIME. 180 Tablet 1 03/20/2023 Active Britelyuch Delgely Lancets 33GIndications:Type 2 diabetes mellitus with hemoglobin A1c goal of less than 8.0% (HCC) Ck FS daily E11.9 100 Each 10 03/20/2023 Active Fluticasone Propionate 50 MCG/ACT Nasal Suspension (Flonase)Indications :Chronic rhinitis USE 1 SPRAY NASALLY EVERY DAY 32 g 3 03/20/2023 Active Trelegy Ellipta 100-62.5-25 MCG/ACT Aerosol Powder Breath Activated (Fluticasone-Umeclid inium-Vilanterol)Ind ications:COPD, group B, by GOLD 2017 classification ([facility]) Inhale 1 Puff by mouth in the morning. 180 Each 3 03/20/2023 Active Albuterol Sulfate (2.5 MG/3ML) 0.083% Inhalation Nebulization Solution Inhale 1 Vial via nebulizer. As directed, if needed, for shortness of breath or wheezing 0 Active OneTouch Ultra In Vitro Strip (Glucose Blood)Indications:Ty pe 2 diabetes mellitus with hemoglobin A1c goal of less than 8.0% ([facility]) Use as directed 2 times daily E11.9 [...] 2 diabetes mellitus with peripheral vascular disease ([facility]) Take 1 Tablet by mouth at bedtime. [...] as of this encounter (statuses as of 11/30/2023) Active Problems Problem Noted Date Diagnosed Date [...] classification 07/26 Overview: Noted on screening CT long term care pharmacist (current) use of insulin 05/16/2019 Type 2 diabetes mellitus with peripheral vascula r disease 05/16/2019 Elevated diaphragm 05/16/2019 History of colon polyps 05/09/2019 BPPV (benign paroxysmal positional vertigo), rig ht 04/28/2018 Coronary artery disease invo lving [place] coronary artery of [place] heart without angina pectoris 04/28/2018 Overactive bladder 12/12/2017 DM type 2 with diabetic peripheral neuropathy History of breast cancer 10/28/2016 Overview: S/p lumpectomy, XRT Arthritis of hand, degenerative 05/19/2015 Dyslipidemia, goal LDL below 100 10/06/2014 Nephrolithiasis 07/27/2014 Panic attacks 07/27/2014 Type 2 diabetes mellitus wit h hemoglobin A1c goal of less than 8.0% 05/28/2014 Overview: 05/10/14 a1c 9.4 @[facility]. documented as of this encounter (statuses as of 11/30/2023) Resolved Problems Problem Noted Date Diagnosed Date [...] 12/24/201405/2019 Acute pyelonephritis 07/27/2014 016 Overview: 06/15 [facility] ER +sepss Blood cx neg D/c on omnicef. Well adult exam 05/28/2014 09/20/2023 Overview: 02/25/23 CTA chest-1cm scletotic T4 lesion BONE SCAN no uptake. Need eval fatty liver/ update EKG. [facility] did not have on file. 05/22 EEG 72h WNL. EMG--This electrodiagnostic study is suggestive of a mild right median neuropathy at the wrist (carpal tunnel syndrome). There is no convincing electrodiagnostic evidence of a large fiber polyneuropathy. There is no electrophysiological evidence of a myopathy. 04/18 [facility] cardiac cath moderate disease small vessels, not stentable. . +borderline stress echo. EF 55-60. Mild LVH. Gr byrd dys. 10/[address] 06/16 repeat mammo/US ordered 12/14 Dr Barragan. 2 tubular adenoma <1cm Daughter Jennifer Winkler 06/15 [facility] ER ?pyelo. +powell sens E Coli documented as of this encounter (statuses as of 11/30/2023) Immunizations Name Administration Dates Next Due Pneumococcal [...] PM EDT Office Visit Neurology [place] [address] [place] [address] Nickolas Del Castlilo, DO [address] [place] [address] Health Maintenance Due Date Last Done Comments [...] 02/10/2015 LUNG CANCER SCREENING - USE SMARTSET [id number] Completed 07/30/2021, 07/20/2020, 07/17/2019, Additional history exists [...] this encounter Medical Devices Implanted Type Area Miller Supervisor Device Identifier Shelf Expiration Date Model / Serial / Lot Lens Intraoc 21.0 - [id number] - [id number] Implanted:Qty: 1 on 12/27/2018 by Santiago Gill MD at OR [facility] Left: Eye [employer] 03/01/2023 [id number] / [id number] / [id number] Lens Intraoc 21.5 - [id number] - [id number] Implanted:Qty: 1 on 01/15/2019 by Santiago Gill MD at OR [facility] Right: Eye [employer]OM[employer] 08/01/2023 [id number] / [id number] / documented as of this encounter Visit Diagnoses Diagnosis Acute deep vein thrombosis (DVT) of femoral vein of left lower extremity (HCC)- Primary Cellulitis of left leg Cellulitis and abscess of leg, except foot Coronary artery disease involving [place] coronary artery of [place] heart without angina pectoris Obesity, morbid (more than 100 lbs over ideal weight or BMI > 40) ([facility]) Morbid obesity Hypokalemia Hypopotassemia documented in this encounter Advance Directives Healthcare Agents on File Name Relationship Healthcare Agent Relationshi p Communication Gene [place] Spouse Health Care Repr esentative (appointed verbally by patient or by statute hierarchy) Care Teams Presidential Helicopter Crew Chief Relationship Specialty Start Date End Date Renny Abdi MD [address] [place] [address] PCP - General Family Medicine 10/06/14 documented as of this encounter
--- OUTSIDE RECORDS SUMMARY | 2024-01-23 18:30 | External Medical Summary | Continuity Of Care Document ---
Author Name Unknown Address [address] [place] [address] Organization [facility] ( ) Care Team Providers Care Slip Box Changer Name Role Phone Noah Montaño Primary Care Provider +[phone] Problems Code Description Start Date End Date [...] tive I25.10 Atherosclerotic hear t disease of [place] coronary artery without angina pectoris 08/21/2023 Active [...] weight Temperature SpO2 Blood Sugar Pulse Respirations 04405 128 92875 4 99.50 Oral 29377 128 79833 5 99.60 Oral 03543 129 58585 1 97.80 Oral 15554 129 90016 6 78.00 mm[Hg] - Sitting 121.00 mm[Hg] - Sitting 99.70 Oral 92.00 % 80.00/ min 20.00/min 69312 129 54744 1 98.70 Ear 73343 130 11295 9 98.70 Oral 95657 131 10330 4 98.10 Oral 20690 131 71769 0 98.50 Oral 24101 131 62066 5 96.20 Oral 81375 131 49621 3 98.30 Ear 68726 131 56929 0 97.60 Oral 96014 201 25967 4 98.00 Oral 74092 201 11307 0 97.00 Oral 48327 201 22168 6 97.60 Oral 28476 201 64915 6 97.60 Oral 81618 202 04285 7 96.80 Oral 44650 202 91715 9 96.80 Oral 68816 203 96431 2 97.40 Oral 71962 203 28977 5 96.90 Oral 98372 203 86331 1 96.70 Oral 72336 204 75554 5 97.10 Ear 24957 204 18266 0 97.30 Ear 35427 204 41654 4 97.00 Oral 74770 204 67319 0 97.30 Oral 43437 205 18077 2 97.30 Oral 29040 205 72799 3 97.30 Oral 50693 206 98040 4 233.00 NI 36074 206 63795 4 97.80 Ear 67528 206 10723 6 80.00 mm[Hg] - Sitting 122.00 mm[Hg] - Sitting 98.40 Ear 82.00/ min 16583 207 48614 6 97.30 Oral 17319 207 40522 6 127.00 mg/dL 34005 207 67775 8 97.20 Oral Immunizations Vaccine Date Status COVID-19 03/07/2023 Resident Refused Influenza 06/16/2022 Completed (PCV13)Pneumococcal 04/26/2016 Completed (PPSV23)Pneumococcal 07/08/2021 Completed Shingles 09/11/2014 Completed TDaP 05/28/2014 Completed
--- OUTSIDE RECORDS SUMMARY | 2024-01-23 18:30 | External Medical Summary | Summary of Care ---
Author Name Unknown Organization [facility] Address [address] [place] [address] Phone [phone] Care Team Providers Care Wire Spooler Name Role Phone Renny Abdi MD Primary Care Provider + Reason for Visit * Reason Comments Outpatient Testing Encounter Details Date Type Department Care Team (Late st Contact Info) Description 12/05/2023 8:00 AM EST Laboratory Laboratory [address] [place] [id number] , Specimen Drop Off [address] [place] [address] Cellulitis Allergies No known active allergiesdocumented as of this encounter (statuses as of 12/05/2023) Medications Medication Sig Dispensed Refills Start Date End Date Status Insulin Syringe-Needle U-100 (BD INSULIN SYR ULTRAFINE II) 31G X 02/14" 1 ML MISCIndications:Type 2 diabetes mellitus with hemoglobin A1c goal of less than 8.0% ([facility]),DM type 2 nursing care encounter ([facility]) use with insulin twice daily [address] 09/11/2018 Active Acetaminophen 325 MG Oral Tablet Take 1 Tablet by mouth every 6 hours as needed for Pain. 0 Active nystatin 733417 UNIT/GM creamIndications:Tin ea corporis Apply To affected area for two weeks twice daily 45 g 2 12/06/2019 Active Additional Information Patient taking differently: BID PRN, Apply To affected area for two weeks twice daily, Informant: At Discharge, Reported on 04/07/2023 [facility] Ultra Mini w/Device KitIndications:Type 2 diabetes mellitus with hemoglobin A1c goal of less than 8.0% ([facility]) Ck FS twice daily on insulin E [...] TABLET BEFORE BEDTIME. 180 Tablet 03/20/2023 Active [facility] Rik Alexander 33GIndications:Type 2 diabetes mellitus with hemoglobin A1c goal of less than 8.0% ([facility]) Ck FS daily E11.9 100 Each 10 03/20/2023 Active Fluticasone Propionate 50 MCG/ACT Nasal Suspension (Flonase)Indications :Chronic rhinitis USE 1 SPRAY NASALLY EVERY DAY 32 g 3 03/20/2023 Active Trelegy Ellipta 100-62.5-25 MCG/ACT Aerosol Powder Breath Activated (Fluticasone-Umeclid inium-Vilanterol)Ind ications:COPD, group B, by GOLD 2017 classification ([facility]) Inhale 1 Puff by mouth in the [...] as of this encounter (statuses as of 12/05/2023) Active Problems Problem Noted Date Diagnosed Date [...] classification 07/26 Overview: Noted on screening CT equipment operator intermodal yard (current) use of insulin 05/16/2019 Type 2 diabetes mellitus with peripheral vascula r disease 05/16/2019 Elevated diaphragm 05/16/2019 History of colon polyps 05/09/2019 BPPV (benign paroxysmal positional vertigo), rig ht 04/28/2018 Coronary artery disease invo lving [place] coronary artery of [place] heart without angina pectoris 04/28/2018 Overactive bladder 12/12/2017 DM type 2 with diabetic peripheral neuropathy History of breast cancer 10/28/2016 Overview: S/p lumpectomy, XRT Arthritis of hand, degenerative 05/19/2015 Dyslipidemia, goal LDL below 100 10/06/2014 Nephrolithiasis 07/27/2014 Panic attacks 07/27/2014 Type 2 diabetes mellitus wit h hemoglobin A1c goal of less than 8.0% 05/28/2014 Overview: 05/10/14 a1c 9.4 @[facility]. documented as of this encounter (statuses as of 12/05/2023) Resolved Problems Problem Noted Date Diagnosed Date [...] 12/24/201405/2019 Acute pyelonephritis 07/27/2014 016 Overview: 06/15 [facility] ER +sepss Blood cx neg D/c on omnicef. Well adult exam 05/28/2014 09/20/2023 Overview: 02/25/23 CTA chest-1cm scletotic T4 lesion BONE SCAN no uptake. Need eval fatty liver/ update EKG. [facility] did not have on file. 05/22 EEG 72h WNL. EMG--This electrodiagnostic study is suggestive of a mild right median neuropathy at the wrist (carpal tunnel syndrome). There is no convincing electrodiagnostic evidence of a large fiber polyneuropathy. There is no electrophysiological evidence of a myopathy. 04/18 [facility] cardiac cath moderate disease small vessels, not stentable. . +borderline stress echo. EF 55-60. Mild LVH. Gr byrd dys. 10/[address] 06/16 repeat mammo/US ordered 12/14 Dr Barragan. 2 tubular adenoma <1cm Daughter Jennifer [place] 06/15 [facility] ER ?pyelo. +powell sens E Coli documented as of this encounter (statuses as of 12/05/2023) Immunizations Name Administration Dates Next Due Pneumococcal [...] Office Visit Neurology State Susan Mendoza [address] [facility] [place] [address] Nickolas Del Castillo, DO [address] [place] [address] Pending Results Name Type Priority Associated Diagnoses Date /Time CBC Lab Routine Cellulitis 12/05/2023 8:34 AM EST Health Maintenance Due Date Last Done Comments [...] 02/10/2015 LUNG CANCER SCREENING - USE SMARTSET 37094 Completed 07/30/2021, 07/20/2020, 07/17/2019, Additional history exists [...] this encounter Medical Devices Implanted Type Area [facility] Device Identifier Shelf Expiration Date Model / Serial / Lot Lens Intraoc 21.0 - [id number] - [id number] Implanted:Qty: 1 on 12/27/2018 by Santiago Gill MD at OR [facility] Left: Eye [employer] 03/01/2023 [id number] / [id number] / [id number] Lens Intraoc 21.5 - [id number] - [id number] Implanted:Qty: 1 on 01/15/2019 by Santiago Gill MD at OR [facility] Right: Eye [employer] 08/01/2023 [id number] / [id number] / documented as of this encounter Visit Diagnoses Diagnosis Cellulitis Cellulitis and abscess of unspecified site documented in this encounter Advance Directives Healthcare Agents on File Name Relationship Healthcare Agent Relationshi p Communication Gene Sana Spouse Health Care Repr esentative (appointed verbally by patient or by statute hierarchy) Care Teams Wire Spooler Relationship Specialty Start Date End Date Renny Abdi MD [address] [place] [address] PCP - General Family Medicine 10/06/14 documented as of this encounter
--- OUTSIDE RECORDS SUMMARY | 2024-01-23 18:30 | External Medical Summary | Continuity Of Care Document ---
Author Name Unknown Address [address] [place] [address] Organization [facility] ( ) Care Team Providers Care Security Officers And Guards Name Role Phone Noah Montaño Primary Care Provider [phone] Problems Code Description Start Date End Date [...] tive I25.10 Atherosclerotic hear t disease of [place] coronary artery without angina pectoris 08/21/2023 Active [...] weight Temperature SpO2 Blood Sugar Pulse Respirations 31940 130 27916 9 98.70 Oral 45613 131 35598 4 98.10 Oral 66835 131 04302 0 98.50 Oral 13238 131 78468 5 96.20 Oral 33260 131 15821 3 98.30 Ear 86502 131 09108 0 97.60 Oral 98809 201 32360 4 98.00 Oral 79573 201 88761 0 97.00 Oral 27516 201 49085 6 97.60 Oral 96216 201 45439 6 97.60 Oral 36878 202 54789 7 96.80 Oral 65452 202 94680 9 96.80 Oral 35234 203 15807 2 97.40 Oral 37998 203 21926 5 96.90 Oral 24894 203 26995 1 96.70 Oral 84300 204 72701 5 97.10 Ear 46985 204 39330 0 97.30 Ear 35871 204 57411 4 97.00 Oral 21423 204 06557 0 97.30 Oral 35977 205 89861 2 97.30 Oral 91065 205 63408 3 97.30 Oral 31517 206 15003 4 233.00 NI 85744 206 55330 4 97.80 Ear 70517 206 32571 6 80.00 mm[Hg] - Sitting 122.00 mm[Hg] - Sitting 98.40 Ear 82.00/ min 42063 207 33280 6 97.30 Oral 10749 207 80485 6 127.00 mg/dL 58520 207 81510 8 97.20 Oral 20141 226 63633 4 97.00 Oral 04635 226 23820 1 97.90 Oral 35794 227 36375 4 97.10 Oral 30604 227 37310 7 97.30 Oral 34534 228 65614 6 96.60 Oral 73203 228 40311 9 97.00 Ear 77681 228 24204 0 97.60 Oral 96024 229 73574 5 97.40 Oral Immunizations Vaccine Date Status COVID-19 03/07/2023 Resident Refused Influenza 06/16/2022 Completed (PCV13)Pneumococcal 04/26/2016 Completed (PPSV23)Pneumococcal 07/08/2021 Completed Shingles 09/11/2014 Completed TDaP 05/28/2014 Completed
--- OUTSIDE RECORDS SUMMARY | 2024-01-23 18:30 | External Medical Summary | Summary of Care ---
Author Name Unknown Organization [facility] Address [address] [place] [address] Phone [phone] Care Team Providers Care Store Clerk Checker Name Role Phone Renny Abdi MD Primary Care Provider + Reason for Visit * Reason Onset Date Comments Penitentiary Visit 12/05/2023 Encounter Details Date Type Department Care Team (Latest Contact Info) Description 12/05/2023 10:00 AM EST Penitentiary Visit [facility] [address] [place] [address] Kindra Pitts PA-C [address] [place] [address] Acute deep vein thrombosis (DVT) of femoral vein of left lower extremity ([facility])*; Cellulitis of left leg; DM type 2 with diabetic peripheral neuropathy (HCC); Obesity, morbid (more than 100 lbs over ideal weight or BMI > 40) ([facility]) Allergies No known active allergiesdocumented as of this encounter (statuses as of 12/05/2023) Medications Medication Sig Dispensed Refills Start Date End Date Status Insulin Syringe-Needle U-100 (BD INSULIN SYR ULTRAFINE II) 31G X 5/16" 1 ML MISCIndications:Type 2 diabetes mellitus with hemoglobin A1c goal of less than 8.0% ([facility]),DM type 2 nursing care encounter ([facility]) use with insulin twice daily [address] 09/11/2018 Active Acetaminophen 325 MG Oral Tablet Take 1 Tablet by mouth every 6 hours as needed for Pain. 0 Active nystatin 168461 UNIT/GM creamIndications:Tin ea corporis Apply To affected area for two weeks twice daily 45 g 2 12/06/2019 Active Additional Information Patient taking differently: BID PRN, Apply To affected area for two weeks twice daily, Informant: At Discharge, Reported on 04/07/2023 [employer] Mini w/Device KitIndications:Type 2 diabetes mellitus with [...] BEFORE BEDTIME. 180 Tablet 1 03/20/2023 Active [employer] Delgely Lancets 33GIndications:Type 2 diabetes mellitus with hemoglobin A1c goal of less than 8.0% (HCC) Ck FS daily E11.9 100 Each 10 03/20/2023 Active Fluticasone Propionate 50 MCG/ACT Nasal Suspension (Flonase)Indications :Chronic rhinitis USE 1 SPRAY NASALLY EVERY DAY 32 g 3 03/20/2023 Active Trelegy Ellipta 100-62.5-25 MCG/ACT Aerosol Powder Breath Activated (Fluticasone-Umeclid inium-Vilanterol)Ind ications:COPD, group B, by GOLD 2017 classification ([facility]) Inhale 1 Puff by mouth in the morning. 180 Each 3 03/20/2023 Active Albuterol Sulfate (2.5 MG/3ML) 0.083% Inhalation Nebulization Solution Inhale 1 Vial via nebulizer. As directed, if needed, for shortness of breath or wheezing 0 Active OneTouch Ultra In Vitro Strip (Glucose Blood)Indications:Ty pe 2 diabetes mellitus with hemoglobin A1c goal of less than 8.0% ([facility]) Use as directed 2 times daily [...] mellitus with peripheral vascular disease ([facility]) Take 1 Tablet by mouth at bedtime. [...] classification 07/26 Overview: Noted on screening CT halfway (current) use of insulin 05/16/2019 Type 2 diabetes mellitus with peripheral vascula r disease 05/16/2019 Elevated diaphragm 05/16/2019 History of colon polyps 05/09/2019 BPPV (benign paroxysmal positional vertigo), rig ht 04/28/2018 Coronary artery disease invo lving [place] coronary artery of [place] heart without angina pectoris 04/28/2018 Overactive bladder 12/12/2017 DM type 2 with diabetic peripheral neuropathy History of breast cancer 10/28/2016 Overview: S/p lumpectomy, XRT Arthritis of hand, degenerative 05/19/2015 Dyslipidemia, goal LDL below 100 10/06/2014 Nephrolithiasis 07/27/2014 Panic attacks 07/27/2014 Type 2 diabetes mellitus wit h hemoglobin A1c goal of less than 8.0% 05/28/2014 Overview: 05/10/14 a1c 9.4 @[facility]. documented as of this encounter (statuses [...] 12/24/201405/2019 Acute pyelonephritis 07/27/2014 016 Overview: 06/15 [facility] ER +sepss Blood cx neg D/c on omnicef. Well adult exam 05/28/2014 09/20/2023 Overview: 02/25/23 CTA chest-1cm scletotic T4 lesion BONE SCAN no uptake. Need eval fatty liver/ update EKG. [facility] did not have on file. 05/22 EEG 72h WNL. EMG--This electrodiagnostic study is suggestive of a mild right median neuropathy at the wrist (carpal tunnel syndrome). There is no convincing electrodiagnostic evidence of a large fiber polyneuropathy. There is no electrophysiological evidence of a myopathy. 04/18 [facility] cardiac cath moderate disease small vessels, not stentable. . +borderline stress echo. EF 55-60. Mild LVH. Gr byrd dys. 10/[address] 06/16 repeat mammo/US ordered 12/14 Dr Barragan. 2 tubular adenoma <1cm Daughter Jennifer [place] 06/15 [facility] ER ?pyelo. +powell sens E Coli [...] Progress Notes * Kindra Pitts PA-C - 12/05/2023 12:29 PM EST Name: Criselda Patrick Date of :1950 TRANSITION EVENT: Type: Non-applicable Date: December 04 Code Status: Full Code This note pertains to care provided at [facility]. Please see facility medical record for original note. This note is not to be edited or addended in [employer]. Editing or addending needs to occur in the facilities medical record. Subjective: Criselda Patrick is a 73 year old female. Patient being seen for recheck visit Chief Complaint Patient presents with Penitentiary Visit HPI: pt was diagnosed with acute DVT left femoral vein about two weeks ago. Venous doppler had to be discontinued early due to too much pain experienced by patient. Pt is now on Eliquis 5mg BID. Continues to have left thigh pain and calf pain with some decrease in swelling. Wearing tubigrips. Ambulates only to toilet. Pt has poor motivation and is very sedentary. No chest pains, dyspnea. Wheezing, cough, hemoptysis. Vital signs stable. Pt developed redness and increased warmth in left leg determined to be cellulitis and treated with Doxycycline 100mg BID which did help but yesterday became red swollen and warm to touch again. She was begun on Augmentin 875/125mg BID and notes significant improvement in above since starting Augmentin. No chilsl or fever. CBC Results: Results for orders placed or performed in visit on 11/22/23 CBC Result Value Ref Range WBC 9.87 4.00 - 10.80 K/uL RBC 5.43 3.85 - 5.15 M/uL HGB 14.1 12.0 - 15.3 g/dL HCT 44.7 36.0 - 45.2 % MCV 82.3 81.5 - 97.5 fL MCH 26.0 27.0 - 34.0 pg MCHC 31.5 32.0 - 36.0 g/dL RDW 19.1 11.5 - 15.5 % PLT 253 140 - 400 K/uL MPV 9.6 6.6 - 11.1 fL nRBCs 0 <=0 /100 WBCs Hemoglobin Results: Lab Results Component Value Date/Time HGB - [facility] 14.1 11/22/2023 03:24 PM HGB - [facility] 12.7 10/31/2023 06:35 AM HGB - [facility] 12.3 09/20/2023 05:29 AM Basic Panel Results: Results for orders placed or performed in visit on 10/31/23 BASIC METABOLIC PANEL Result Value Ref Range BUN 11 6 - 20 mg/dL Creatinine 0.6 0.5 - 1.0 mg/dL Estimated Glomerular Filtration Rate >90 >=60 mL/min Sodium 139 135 - 146 mmol/L Potassium 3.8 3.5 - 5.1 mmol/L Chloride 99 98 - 107 mmol/L CO2 30 22 - 32 mmol/L Anion Gap 10 7 - 15 mmol/L Glucose 82 70 - 120 mg/dL Calcium 8.5 8.4 - 10.2 mg/dL Creatinine Results: Lab Results Component Value Date/Time CREATININE - [facility] 0.6 10/31/2023 06:35 AM CREATININE - [facility] 0.6 09/27/2023 05:44 AM CREATININE - [facility] 0.6 09/20/2023 05:29 AM CREATININE - [facility] 0.7 06/23/2020 09:38 [...] Results Component Value Date/Time POTASSIUM - [facility] 3.8 10/31/2023 06:35 AM POTASSIUM - [facility] 3.6 09/27/2023 05:44 AM POTASSIUM - [facility] 3.7 09/20/2023 05:29 AM POTASSIUM - [facility] 4.4 06/23/2020 09:38 AM POTASSIUM - [facility] 4.8 12/06/2019 10:27 AM POTASSIUM - [facility] 4.8 07/05/2019 08:37 AM POTASSIUM[facility] 140 03/28/2023 12:00 AM [facility]UM[facility] 3.9 04/20/2018 12:00 AM [facility] 3.8 05/09/2014 12:00 AM Sodium Results: Lab Results Component Value Date/Time SODIUM - [facility] 139 10/31/2023 06:35 AM SODIUM - [facility] 139 09/27/2023 05:44 AM SODIUM - [facility] 139 09/20/2023 05:29 AM SODIUM - [facility] 141 06/23/2020 09:38 AM SODIUM - [facility] 141 12/06/2019 10:27 AM SODIUM - [facility] 139 07/05/2019 08:37 AM Patient Active Problem List Diagnosis Code Type 2 diabetes mellitus with hemoglobin A1c goal of less than 8.0% ([facility]) E11.9 Nephrolithiasis N20.0 Panic attacks F41.0 Dyslipidemia, goal LDL below 100 E78.5 Arthritis of hand, degenerative M19.049 History of breast cancer Z85.3 DM type 2 with diabetic peripheral neuropathy (HCC) E11.42 Overactive bladder N32.81 BPPV (benign paroxysmal positional vertigo), right H81.11 Coronary artery disease involving [place] coronary artery of [place] heart without angina pectoris I25.10 History of colon polyps Z86.010 halfway (current) use of insulin ([facility]) Z79.4 Type 2 diabetes mellitus with peripheral vascular disease ([facility]) E11.51 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 COPD, group B, by GOLD 2017 classification ([facility]) J44.9 Gastroesophageal reflux disease without esophagitis K21.9 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[facility]) G40.409 BMI 40.0-44.9, adult ([facility]) Z68.41 Full code status Z78.9 Primary osteoarthritis of both knees M17.0 Lesion of bone of thoracic spine M89.9 Medical home patient encounter Z00.8 S/P TKR (total knee replacement), left Z96.652 Slow transit constipation K59.01 Venous insufficiency I87.2 History of 2019 novel coronavirus disease (COVID-19) Z86.16 Obesity, morbid (more than 100 lbs over ideal weight or BMI > 40) ([facility]) E66.01 Acute deep vein thrombosis (DVT) of femoral vein of left lower extremity ([facility]) I82.412 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 no severe CAD COLONOSCOPY, DIAGNOSTIC (RECTUM) 12/19/2014 adenomatous polyp, diverticulosis, repeat 5 yrs/[facility] MISCELLANEOUS ORDER ([facility] ONLY) Right 1997 lumpectomy right breast cancer LA ARTHRP KNE CONDYLE&PLATU MEDIAL&LAT COMPARTMENTS Left 07/28/2023 TKA left, Dr Taylor [facility] REMOVE CATARACT, INSERT LENS PROSTH Left 12/27/2018 left EXTRACAPSULAR CATARACT REMOVAL WITH INTRAOCULAR LENS performed by Santiago Gill MD at OR [facility] REMOVE CATARACT, INSERT LENS PROSTH Right 01/15/2019 right EXTRACAPSULAR CATARACT REMOVAL WITH INTRAOCULAR LENS performed by Santiago Gill MD at OR [facility] Family History Problem Relation Age of Onset [...] Not on file Occupational History 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 Tobacco Use Smoking status: Former Current packs/day: 0.00 Average packs/day: 1 pack/day for 50.0 years (50.0 ttl pk-yrs) Types: Cigarettes Start date: 10/23/1960 Quit date: 10/23/2010 Years since quittin.1 Smokeless tobacco: Never Vaping Use Vaping Use: Never used Substance and Sexual Activity Alcohol use: No Drug use: No Sexual activity: Yes Partners: Male Other Topics Concern Not on file Social History Narrative 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 Review of Systems: Constitutional ROS: No change in weight, No weakness, No fatigue and No fevers, sweats, or chills [...] dysphagia Musculoskeletal/Extremities ROS: see HPI Skin/Integumentary ROS: see HPI Neurologic ROS: No headaches and No seizures [...] lungs clear to auscultation Abdomen: abdomen soft, obese, non-tender, normal bowel sounds and no masses or organomegaly Extremities: continued LLE edema, no clubbing, no cyanosis. Continued tenderness to palpation left calf and thigh. Skin: skin color, texture, turgor are normal, much less warmth, redness left leg ASSESSMENT: Acute deep vein thrombosis (DVT) of femoral vein of left lower extremity (HCC) (Primary) Stable currently Will continue Eliquis 5mg BID Cellulitis of left leg Improved with Augmentin 875mg /125mg BID Continue to completion DM type 2 with diabetic peripheral neuropathy (HCC) Stable glucoses Continue Metfromin 500mg BID, lantus 8 units HS and Lispro 4 units AC Obesity, morbid (more than 100 lbs over ideal weight or BMI > 40) (HCC) Dietary involved PLAN: Reviewed CBC, BMP, Lytes and Continue present medication(s):as ordered. Detention Home Treatment Given: as above Electronically signed by: Kindra Pitts PA-C Over 35 minutes were spent in this visit more than half the time was spent counselling or coordinating care. documented in this encounter Plan of Treatment Upcoming Encounters Date Type Department Care Team (Late st Contact Info) Description 01/23/2024 1:00 PM EDT Office Visit [facility]rology [employer] [address] [place] [address] Nickolas Del Castillo, [address] [facility] [place] [address] Health Maintenance Due Date Last Done Comments [...] 02/10/2015 LUNG CANCER SCREENING - USE SMARTSET 90014 Completed 07/30/2021, 07/20/2020, 07/17/2019, Additional history exists [...] this encounter Medical Devices Implanted Type Area Doctor Of Pharmacy Device Identifier Shelf Expiration Date Model / Serial / Lot Lens Intraoc 21.0 - [id number] - [id number] Implanted:Qty: 1 on 12/27/2018 by Santiago Gill MD at OR [facility] Left: Eye [employer] 03/01/2023 [id number] / [id number] / [id number] Lens Intraoc 21.5 - [id number] - [id number] Implanted:Qty: 1 on 01/15/2019 by Santiago Gill MD at OR [facility] Right: Eye [employer] 08/01/2023 [id number] / [id number] / documented as of this encounter Visit Diagnoses Diagnosis Acute deep vein thrombosis (DVT) of femoral vein of left lower extremity (HCC)- Primary Cellulitis of left leg Cellulitis and abscess of leg, except foot DM type 2 with diabetic peripheral neuropathy (HCC) Type II or unspecified type diabetes mellitus with neurological manifestations, not stated as uncontrolled Obesity, morbid (more than 100 lbs over ideal weight or BMI > 40) (HCC) Morbid obesity documented in this encounter Advance Directives Healthcare Agents on File Name Relationship Healthcare Agent Relationshi p Communication Gene Sana Spouse Health Care Repr esentative (appointed verbally by patient or by statute hierarchy) Care Teams Store Clerk Checker Relationship Specialty Start Date End Date Renny Abdi MD [address] [place] [address] PCP - General Family Medicine 10/06/14 documented as of this encounter
--- OUTSIDE RECORDS SUMMARY | 2024-01-23 18:30 | External Medical Summary | Summary of Care ---
Author Name Unknown Organization [facility] Address [address] [place] [address] Phone [phone] Care Team Providers Care District Administrative Assistant Name Role Phone Renny Abdi MD Primary Care Provider + Reason for Visit * Reason Comments Outpatient Testing Encounter Details Date Type Department Care Team (Late st Contact Info) Description 12/05/2023 8:00 AM EST Laboratory Laboratory [address] [place] [id number] , Specimen Drop Off [address] [place] [address] Cellulitis Allergies No [...] as needed for Pain. 0 Active nystatin 301161 UNIT/GM creamIndications:Tin ea corporis Apply To affected area for two weeks twice daily 45 g 2 12/06/2019 Active Additional Information Patient taking differently: BID PRN, Apply To affected area for two weeks twice daily, Informant: At Discharge, Reported on 04/07/2023 [employer] Ultra Mini w/Device KitIndications:Type 2 diabetes mellitus [...] TABLET BEFORE BEDTIME. 180 Tablet 03/20/2023 Active [employer] Rik Alexander 33GIndications:Type 2 diabetes mellitus [...] classification 07/26 Overview: Noted on screening CT emt intermediate (current) use of insulin 05/16/2019 Type 2 diabetes mellitus with peripheral vascula r disease 05/16/2019 Elevated diaphragm 05/16/2019 History of colon polyps 05/09/2019 BPPV (benign paroxysmal positional vertigo), rig ht 04/28/2018 Coronary artery disease invo lving [place] coronary artery of [place] heart without angina pectoris 04/28/2018 Overactive bladder 12/12/2017 DM type 2 with diabetic peripheral neuropathy History of breast cancer 10/28/2016 Overview: S/p lumpectomy, XRT Arthritis of hand, degenerative 05/19/2015 Dyslipidemia, goal LDL below 100 10/06/2014 Nephrolithiasis 07/27/2014 Panic attacks 07/27/2014 Type 2 diabetes mellitus wit h hemoglobin A1c goal of less than 8.0% 05/28/2014 Overview: 05/10/14 a1c 9.4 @[facility]. documented as of this encounter (statuses as [...] Acute pyelonephritis 07/27/2014 016 Overview: 06/15 [facility] ER +sepss Blood cx neg D/c on omnicef. Well adult exam 05/28/2014 09/20/2023 Overview: 02/25/23 CTA chest-1cm scletotic T4 lesion BONE SCAN no uptake. Need eval fatty liver/ update EKG. [facility] did not have on file. 05/22 EEG 72h WNL. EMG--This electrodiagnostic study is suggestive of a mild right median neuropathy at the wrist (carpal tunnel syndrome). There is no convincing electrodiagnostic evidence of a large fiber polyneuropathy. There is no electrophysiological evidence of a myopathy. 04/18 [facility] cardiac cath moderate disease small vessels, not stentable. . +borderline stress echo. EF 55-60. Mild LVH. Gr byrd dys. 10/[address] 06/16 repeat mammo/US ordered 12/14 Dr Barragan. 2 tubular adenoma <1cm Daughter Jennifer [place] 06/15 [facility] ER ?pyelo. +pwoell sens E Coli documented as of this [...] Office Visit Neurology State [facility] Mendoza [address] [facility] [place] [address] Nickolas Del Castillo, DO [address] [facility] [address] Pending Results Name Type Priority Associated Diagnoses [...] 02/10/2015 LUNG CANCER SCREENING - USE SMARTSET [id number] Completed 07/30/2021, 07/20/2020, 07/17/2019, Additional history exists [...] this encounter Medical Devices Implanted Type Area Wire Bound Box Machine Helper Device Identifier Shelf Expiration Date Model / Serial / Lot Lens Intraoc 21.0 - [id number] - [id number] Implanted:Qty: 1 on 12/27/2018 by Santiago Gill MD at OR [facility] Left: Eye [employer] 03/01/2023 [id number] / [id number] / [id number] Lens Intraoc 21.5 - [id number] - [id number] Implanted:Qty: 1 on 01/15/2019 by Santiago Gill MD at OR [facility] Right: Eye [employer] 08/01/2023 [id number] / [id number] / documented as of this encounter Visit Diagnoses Diagnosis Cellulitis Cellulitis and abscess of unspecified site documented in this encounter Advance Directives Healthcare Agents on File Name Relationship Healthcare Agent Relationshi p Communication Gene Sana Spouse Health Care Repr esentative (appointed verbally by patient or by statute hierarchy) Care Teams District Administrative Assistant Relationship Specialty Start Date End Date Renny Abdi MD [address] [place] [address] PCP - General Family Medicine 10/06/14 documented as of this encounter
--- OUTSIDE RECORDS SUMMARY | 2024-01-23 18:30 | External Medical Summary | Summary of Care ---
Author Name Unknown Organization [facility] Address [address] [place] [address] Phone [phone] Care Team Providers Care Pst Manager Name Role Phone Renny Abdi MD Primary Care Provider + Reason for Visit * Reason Comments Outpatient Testing Encounter Details Date Type Department Care Team (Late st Contact Info) Description 12/05/2023 8:00 AM EST Laboratory Laboratory [address] [place] [phone] , Specimen Drop Off [address] [place] [address] Arrived Allergies No known active allergiesdocumented as of this encounter (statuses as of 12/05/2023) Medications Medication Sig Dispensed Refills Start Date End Date Status Insulin Syringe-Needle U-100 (BD INSULIN SYR ULTRAFINE II) 31G X 02/14" 1 ML MISCIndications:Type 2 diabetes mellitus with hemoglobin A1c goal of less than 8.0% ([facility]),DM type 2 nursing care encounter ([facility]) use with insulin twice daily [address] 09/11/2018 Active Acetaminophen 325 MG Oral Tablet Take 1 Tablet by mouth every 6 hours as needed for Pain. 0 Active nystatin 300914 UNIT/GM creamIndications:Tin ea corporis Apply To affected area for two weeks twice daily 45 g 2 12/06/2019 Active Additional Information Patient taking differently: BID PRN, Apply To affected area for two weeks twice daily, Informant: At Discharge, Reported on 04/07/2023 [employer] Ultra Mini w/Device KitIndications:Type 2 diabetes mellitus with hemoglobin A1c goal of less than 8.0% ([facility]) Ck FS twice daily on insulin E [...] BEFORE BEDTIME. 180 Tablet 1 03/20/2023 Active [employer] Rik Alexander 33GIndications:Type 2 diabetes mellitus with hemoglobin A1c goal of less than 8.0% ([facility]) Ck FS daily E11.9 100 Each 10 [...] classification 07/26 Overview: Noted on screening CT alf (current) use of insulin 05/16/2019 Type 2 diabetes mellitus with peripheral vascula r disease 05/16/2019 Elevated diaphragm 05/16/2019 History of colon polyps 05/09/2019 BPPV (benign paroxysmal positional vertigo), rig ht 04/28/2018 Coronary artery disease invo lving [place] coronary artery of [place] heart without angina pectoris 04/28/2018 Overactive bladder 12/12/2017 DM type 2 with diabetic peripheral neuropathy History of breast cancer 10/28/2016 Overview: S/p lumpectomy, XRT Arthritis of hand, degenerative 05/19/2015 Dyslipidemia, goal LDL below 100 10/06/2014 Nephrolithiasis 07/27/2014 Panic attacks 07/27/2014 Type 2 diabetes mellitus wit h hemoglobin A1c goal of less than 8.0% 05/28/2014 Overview: 05/10/14 a1c 9.4 @[facility]. documented as of this encounter (statuses [...] 12/24/201405/2019 Acute pyelonephritis 07/27/2014 016 Overview: 06/15 [facility] ER +sepss Blood cx neg D/c on omnicef. Well adult exam 05/28/2014 09/20/2023 Overview: 02/25/23 CTA chest-1cm scletotic T4 lesion BONE SCAN no uptake. Need eval fatty liver/ update EKG. [facility] did not have on file. 05/22 EEG 72h WNL. EMG--This electrodiagnostic study is suggestive of a mild right median neuropathy at the wrist (carpal tunnel syndrome). There is no convincing electrodiagnostic evidence of a large fiber polyneuropathy. There is no electrophysiological evidence of a myopathy. 04/18 [facility] cardiac cath moderate disease small vessels, not stentable. . +borderline stress echo. EF 55-60. Mild LVH. Gr byrd dys. 10/[address] 06/16 repeat mammo/US ordered 12/14 Dr Barragan. 2 tubular adenoma <1cm Daughter Jennifer [place] 06/15 [facility] ER ?pyelo. +powell sens E Coli [...] Visit Neurology State Susan Mendoza [address] [place] [address] Nickolas Del Castillo, DO [address] [facility] [place] [address] Health Maintenance Due Date Last Done Comments [...] 02/10/2015 LUNG CANCER SCREENING - USE SMARTSET [id number] Completed 07/30/2021, 07/20/2020, 07/17/2019, Additional history exists [...] this encounter Medical Devices Implanted Type Area [employer] Sales Associate Device Identifier Shelf Expiration Date Model / Serial / Lot Lens Intraoc 21.0 - [id number] - [id number] Implanted:Qty: 1 on 12/27/2018 by Santiago Gill MD at [facility] Left: Eye [employer] 03/01/2023 [id number] / [id number] / [id number] Lens Intraoc 21.5 - [id number] - [id number] Implanted:Qty: 1 on 01/15/2019 by Santiago Gill MD at [facility] Right: Eye [employer] 08/01/2023 [id number] / [id number] / documented as of this encounter Advance Directives Healthcare Agents on File Name Relationship Healthcare Agent Relationshi p Communication Gene Franklin Spouse Health Care Repr esentative (appointed verbally by patient or by statute hierarchy) Care Teams Pst Manager Relationship Specialty Start Date End Date Renny Abdi MD [address] [place] [address] PCP - General Family Medicine 10/06/14 documented as of this encounter
--- OUTSIDE RECORDS SUMMARY | 2024-01-23 18:30 | External Medical Summary | Summary of Care ---
Author Name Unknown Organization [facility] Address [address] [place] [address] Phone [phone] Care Team Providers Care Core Cutter Name Role Phone Renny Abdi MD Primary Care Provider + Reason for Visit * Reason Onset Date Comments Complicated Acute Visit 11/24/2023 Encounter Details Date Type Department Care Team (Latest Contact Info) Description 11/24/2023 6:00 AM EST Intermediate Visit [facility] [address] [place] [address] Kindra Pitts PA-C [address] [place] [address] Acute deep vein thrombosis (DVT) of femoral vein of left lower extremity (HCC)*; Cellulitis of left leg; History of total knee replacement, left; Coronary artery disease involving [place] coronary artery of [place] heart without angina pectoris; Type 2 diabetes mellitus with peripheral vascular disease (HCC); Obesity, morbid (more than 100 lbs over ideal weight or BMI > 40) ([facility]) Allergies No known active allergiesdocumented as of this encounter (statuses as of 11/24/2023) Medications Medication Sig Dispensed Refills Start Date End Date Status Insulin Syringe-Needle U-100 (BD INSULIN SYR ULTRAFINE II) 31G X 5/16" 1 ML MISCIndications:Type 2 diabetes mellitus with hemoglobin A1c goal of less than 8.0% (HCC),DM type 2 nursing care encounter ([facility]) use with insulin twice daily [address] 5 09/11/2018 Active Acetaminophen 325 MG Oral Tablet Take 1 Tablet by mouth every 6 hours as needed for Pain. 0 Active nystatin 791962 UNIT/GM creamIndications:Tin ea corporis Apply To affected area for two weeks twice daily 45 g 2 12/06/2019 Active Additional Information Patient taking differently: BID PRN, Apply To affected area for two weeks twice daily, Informant: At Discharge, Reported on 04/07/2023 ARI Mini w/Device KitIndications:Type 2 diabetes mellitus with hemoglobin A1c goal of less than 8.0% ([facility]) Ck FS twice daily on insulin [...] BEDTIME. 180 Tablet 1 03/20/2023 Active OneTouch Delica Lancets 33GIndications:Type 2 diabetes mellitus with hemoglobin A1c goal of less than 8.0% ([facility]) Ck FS daily E11.9 100 Each 10 03/20/2023 Active Fluticasone Propionate 50 MCG/ACT Nasal Suspension (Flonase)Indications :Chronic rhinitis USE 1 SPRAY NASALLY EVERY DAY 32 g 3 03/20/2023 Active Trelegy Ellipta 100-62.5-25 MCG/ACT Aerosol Powder Breath Activated (Fluticasone-Umeclid inium-Vilanterol)Ind ications:COPD, group B, by GOLD 2017 classification ([facility]) Inhale 1 Puff by mouth in the morning. 180 Each 3 03/20/2023 Active Albuterol Sulfate (2.5 MG/3ML) 0.083% Inhalation Nebulization Solution Inhale 1 Vial via nebulizer. As directed, if needed, for shortness of breath or wheezing 0 Active Oris4ToSmart Device Media Ultra In Vitro Strip (Glucose Blood)Indications:Ty pe 2 diabetes mellitus with hemoglobin A1c goal of less than 8.0% ([facility]) Use as directed 2 times daily [...] 2 diabetes mellitus with peripheral vascular disease ([facility]) Take 1 Tablet by mouth at [...] as of this encounter (statuses as of 11/24/2023) Active Problems Problem Noted Date Diagnosed Date Acute deep vein thrombosis ( DVT) of [...] classification 07/26 Overview: Noted on screening CT [facility] (current) use of insulin 05/16/2019 Type 2 diabetes mellitus with peripheral vascula r disease 05/16/2019 Elevated diaphragm 05/16/2019 History of colon polyps 05/09/2019 BPPV (benign paroxysmal positional vertigo), rig ht 04/28/2018 Coronary artery disease invo lving [place] coronary artery of [place] heart without angina pectoris 04/28/2018 Overactive bladder 12/12/2017 DM type 2 with diabetic peripheral neuropathy History of breast cancer 10/28/2016 Overview: S/p lumpectomy, XRT Arthritis of hand, degenerative 05/19/2015 Dyslipidemia, goal LDL below 100 10/06/2014 Nephrolithiasis 07/27/2014 Panic attacks 07/27/2014 Type 2 diabetes mellitus wit h hemoglobin A1c goal of less than 8.0% 05/28/2014 Overview: 05/10/14 a1c 9.4 @[facility]. documented as of this encounter (statuses as of 11/24/2023) Resolved Problems Problem Noted Date Diagnosed Date [...] pyelonephritis 07/27/2014 016 Overview: 06/15 [facility] ER +sepss Blood cx neg D/c on omnicef. Well adult exam 05/28/2014 09/20/2023 Overview: 02/25/23 CTA chest-1cm scletotic T4 lesion BONE SCAN no uptake. Need eval fatty liver/ update EKG. [facility] did not have on file. 05/22 EEG 72h WNL. EMG--This electrodiagnostic study is suggestive of a mild right median neuropathy at the wrist (carpal tunnel syndrome). There is no convincing electrodiagnostic evidence of a large fiber polyneuropathy. There is no electrophysiological evidence of a myopathy. 04/18 [facility] cardiac cath moderate disease small vessels, not stentable. . +borderline stress echo. EF 55-60. Mild LVH. Gr byrd dys. 10/[address] 06/16 repeat mammo/US ordered 12/14 Dr Barragan. 2 tubular adenoma <1cm Daughter Jennifer Winkler 06/15 [facility] ER ?pyelo. +powell sens E Coli documented as of this encounter (statuses as of 11/24/2023) Immunizations Name Administration Dates Next Due Pneumococcal [...] money to buy more. Never true 04/07/20 Within the past 12 months, t he [...] Progress Notes * Kindra Pitts PA-C - 11/24/2023 9:04 AM EST Name: Criselda Patrick Date of :1950 TRANSITION EVENT: Type: Complicated acute visit and ED Follow Up Date: November 24 Code Status: Full Code This note pertains to care provided at [facility]. Please see facility medical record for original note. This note is not to be edited or addended in [email or web address]. Editing or addending needs to occur in the facilities medical record. Subjective: Criselda Patrick is a 73 year old female. Patient being seen for abnormal venous doppler Chief Complaint Patient presents with Complicated Acute Visit HPI: pt has been under assessment for pain, swelling LLE which pt had for about a week but just informed staff a day or so ago. Pt is s/p left TKR July,. Has been very sedentary following surgery. [facility] notes where pt was prior to admission to [facility] stated poor motivation. Pt refuses SSRIs and psychiatry consults. Pt also has some redness and warmth LLE suggestive of cellulitis which isunder Rx with Doxycycline 100mg BID times 10 days. Venous doppler was performed yesterday but had to be discontinued due to pt having significant painduring the test. In spite of having test not completed, there was evidence of DVT noted left proximal femoral vein. XRay of left knee showed well seated prosthesis with no loosening or effusion. CBC with diff, ESR, uric acid normal. CRP high at 39. Pt was begun on Eliquis 10mg last night when venous doppler study results were faxed to [facility]. Pt denies any dyspnea, chest pains, palpiations, tachypnea. No chills or fever. Vital signs stable. CBC Results: Results for [...] AM POTASSIUM-OUTSIDE LAB 3.8 05/09/2014 12:00 AM t Sodium Results: Lab Results Component Value Date/Time [...] A1c goal of less than 8.0% ([facility]) E11.9 Nephrolithiasis N20.0 Panic attacks F41.0 Dyslipidemia, goal LDL below 100 E78.5 Arthritis of hand, degenerative M19.049 History of breast cancer Z85.3 DM type 2 with diabetic peripheral neuropathy (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) Z79.4 Type 2 diabetes mellitus with peripheral vascular disease ([facility]) E11.51 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 COPD, group B, by GOLD 2017 classification (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) G40.409 BMI 40.0-44.9, adult ([facility]) Z68.41 Full code status Z78.9 Primary osteoarthritis of both knees M17.0 Lesion of bone of thoracic spine M89.9 Medical home patient encounter Z00.8 S/P TKR (total knee replacement), left Z96.652 Slow transit constipation K59.01 Venous insufficiency I87.2 History of 2019 novel coronavirus disease (COVID-19) Z86.16 Obesity, morbid (more than 100 lbs over ideal weight or BMI > 40) ([facility]) E66.01 Acute deep vein thrombosis (DVT) of femoral vein of left lower extremity ([facility]) I82.412 Past Medical History: Diagnosis Date Acute pyelonephritis 07/27/201406/15 [facility] ER Arthritis of hand, degenerative 05/19/2015 BPPV (benign paroxysmal positional vertigo), right 04/28/2018 Coronary artery disease involving [place] coronary artery of [place] heart without angina pectoris 04/28/2018 DM type [...] CARDIAC CATH SCANNED RESULT 04/20/2018 [facility]. no severe CAD COLONOSCOPY, DIAGNOSTIC (RECTUM) 12/19/2014 adenomatous polyp, diverticulosis, repeat 5 yrs/[facility] MISCELLANEOUS ORDER ([facility] ONLY) Right 1997 lumpectomy right breast cancer MT ARTHRP KNE CONDYLE&PLATU MEDIAL&LAT COMPARTMENTS Left 07/28/2023 TKA left, Dr Taylor [facility] REMOVE CATARACT, INSERT LENS PROSTH Left 12/27/2018 left EXTRACAPSULAR CATARACT REMOVAL WITH INTRAOCULAR LENS performed by Santiago Gill MD at [facility] REMOVE CATARACT, INSERT LENS PROSTH Right 01/15/2019 right EXTRACAPSULAR CATARACT REMOVAL WITH INTRAOCULAR LENS performed by Santiago Gill MD at [facility] Family History Problem Relation Age of Onset [...] Not on file Occupational History 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 Review of Systems: Constitutional ROS: No change in weight, Nochange in weakness, No change in fatigue and No fevers, sweats, or chills [...] see HPI Neurologic ROS: No headaches and +seizures Psychiatric ROS: No depression, No anxiety and No psychosis Sleep: No [...] tenderness, lungs clear to auscultation Abdomen: abdomen soft obese,, non-tender, normal bowel sounds and no masses or organomegaly Extremities: tenderness to palpation left thigh and calf. No knee effusion. Erythema and warmth left leg . Edema noted LLE >RLE Neuro Exam: alert with fluent speech, no focal motor/sensory deficits Skin: skin color, texture, turgor are normal, no rashes or significant lesions ASSESSMENT: ,Acute deep vein thrombosis (DVT) of femoral vein of left lower extremity (HCC) (Primary) Discussed results of venous doppler with patient at length Discussed Rx options incluiding Coumadin, Eliquis, etc Pt consented to Eliqius which we will begin at 10mg BID times 7 days then 5mg BID Discussed complications of DVT and possible adverse effects of Eliquis incluiding excess bruising, bleeding, etc. Pt expressed understanding Will follow closely Cellulitis of left leg Continue Doxycycline 100mg BID to complete course History of total knee replacement, left Xray showed no acute findings. Well seated prosthesis Coronary artery disease involving [place] coronary artery of [place] heart without angina pectoris Stable Continue ASA 81mg daily Type 2 diabetes mellitus with peripheral vascular disease (HCC) Stable glucoses Continue Metformin 1000mg BID and Lantus 8 units hS and Novolog 4 AC Obesity, morbid (more than 100 lbs over ideal weight or BMI > 40) (HCC) Dietary involvded PLAN: Encouraged pt to ambulate. Continue compression hose reviewed CBC, BMP, Lytes, CRP, ESR and Continue present medication(s):as ordered. [facility] Home Treatment Given: as above Electronically signed by: Kindra Pitts PA-C Over 45 minutes were spent in this visit more than half the time was spent counselling or coordinating care. documented in this encounter Plan of Treatment Upcoming Encounters Date Type Department Care Team (Late st Contact Info) Description 01/23/2024 1:00 PM EDT Office Visit Neurology State Susan Mendoza [address] [facility] [place] [id number] Nickolas Del Castillo DO [address] [facility] [place] [id number] Health Maintenance Due Date Last Done Comments [...] 02/10/2015 LUNG CANCER SCREENING - USE SMARTSET [id number] Completed 07/30/2021, 07/20/2020, 07/17/2019, Additional history exists [...] this encounter Medical Devices Implanted Type Area Dumper [employer] Device Identifier Shelf Expiration Date Model / Serial / Lot Lens Intraoc 21.0 - [id number] - [id number] Implanted:Qty: 1 on 12/27/2018 by Santiago Gill MD at [facility] Left: Eye [employer] 03/01/2023 [id number] / [id number] / [id number] Lens Intraoc 21.5 - [id number] - [id number] Implanted:Qty: 1 on 01/15/2019 by Santiago Gill MD at OR [facility] Right: Eye [employer] 08/01/2023 [id number] / [id number] / documented as of this encounter Visit Diagnoses Diagnosis Acute deep vein thrombosis (DVT) of femoral vein of left lower extremity (HCC)- Primary Cellulitis of left leg Cellulitis and abscess of leg, except foot History of total knee replacement, left Coronary artery disease involving [place] coronary artery of [place] heart without angina pectoris Type 2 diabetes mellitus with peripheral vascular disease (HCC) Obesity, morbid (more than 100 lbs over ideal weight or BMI > 40) ([facility]) Morbid obesity documented in this encounter Advance Directives Healthcare Agents on File Name Relationship Healthcare Agent Relationshi p Communication Gene Sana Spouse Health Care Repr esentative (appointed verbally by patient or by statute hierarchy) Care Teams Core Cutter Relationship Specialty Start Date End Date Renny Abdi MD [address] [place] [id number] PCP - General Family Medicine 10/06/14 documented as of this encounter
--- OUTSIDE RECORDS SUMMARY | 2024-01-23 18:30 | External Medical Summary | Continuity Of Care Document ---
Author Name Unknown Address [address] [place] [address] Organization [facility] ( ) Care Team Providers Care Public Speaking Teacher Name Role Phone Noah Montaño Primary Care Provider [phone] Problems Code Description Start Date End Date [...] tive I25.10 Atherosclerotic hear t disease of [place] coronary artery without angina pectoris 08/21/2023 Active [...] weight Temperature SpO2 Blood Sugar Pulse Respirations 03025 128 99909 4 99.50 Oral 47689 128 94992 5 99.60 Oral 26021 129 60045 1 97.80 Oral 04864 129 66289 6 78.00 mm[Hg] - Sitting 121.00 mm[Hg] - Sitting 99.70 Oral 92.00 % 80.00/ min 20.00/min 85737 129 51934 1 98.70 Ear 29040 130 52977 9 98.70 Oral 60092 131 63744 4 98.10 Oral 80266 131 93128 0 98.50 Oral 32422 131 18251 5 96.20 Oral 57236 131 37345 3 98.30 Ear 09501 131 93839 0 97.60 Oral 64036 201 73282 4 98.00 Oral 73879 201 32586 0 97.00 Oral 98504 201 37567 6 97.60 Oral 09146 201 68604 6 97.60 Oral 53952 202 75444 7 96.80 Oral 87167 202 85315 9 96.80 Oral 97702 203 87429 2 97.40 Oral 61628 203 93517 5 96.90 Oral 86459 203 81449 1 96.70 Oral 03803 204 93272 5 97.10 Ear 57404 204 38723 0 97.30 Ear 13074 204 62197 4 97.00 Oral 21648 204 57304 0 97.30 Oral 75049 205 58180 2 97.30 Oral 79776 205 18697 3 97.30 Oral 14791 206 82059 4 233.00 NI 01106 206 83717 4 97.80 Ear 59710 206 22988 6 80.00 mm[Hg] - Sitting 122.00 mm[Hg] - Sitting 98.40 Ear 82.00/ min 96063 207 71243 6 97.30 Oral 17312 207 23435 6 127.00 mg/dL 68018 207 79955 8 97.20 Oral Immunizations Vaccine Date Status COVID-19 03/07/2023 Resident Refused Influenza 06/16/2022 Completed (PCV13)Pneumococcal 04/26/2016 Completed (PPSV23)Pneumococcal 07/08/2021 Completed Shingles 09/11/2014 Completed TDaP 05/28/2014 Completed
--- OUTSIDE RECORDS SUMMARY | 2024-01-23 18:31 | External Medical Summary ---
Author Name Unknown Address Unknown Organization K01:[facility] [place] [address] [place] [address] Laboratory Report Ordering Provider Test Date Status MISSAEL CHING 11/22/2023 15:24:06 Final Observation Date Value Abnormality Reference (Units ) Status Erythrocyte sedimentation rate by Photometric method 11/22/2023 15:24:06 22 <30 (mm/hour) Final Performing Location [facility] [place] [address] [place] [address]
--- OUTSIDE RECORDS SUMMARY | 2024-01-23 18:31 | External Medical Summary | Summary of Care ---
Author Name Unknown Organization [facility] Address [address] [place] [address] Phone [phone] Care Team Providers Care Forest Practices Field Coordinator Name Role Phone Renny Abdi MD Primary Care Provider + Reason for Visit * Reason Onset Date Comments Complicated Acute Visit 11/22/2023 Encounter Details Date Type Department Care Team (Latest Contact Info) Description 11/22/2023 7:30 AM EST Retirement Visit [facility] [address] [place] [address] Kindra Pitts PA-C [address] [place] [address] Pain and swelling of left lower leg*; Pain and swelling of left knee; Status post total left knee replacement; Type 2 diabetes mellitus with peripheral vascular disease (HCC); Coronary artery disease involving shoshone-bannock coronary artery of shoshone[place]bannock heart without angina pectoris Allergies No known active allergiesdocumented as of this encounter (statuses as of 11/22/2023) Medications Medication Sig Dispensed Refills Start Date End Date Status Insulin Syringe-Needle U-100 (BD INSULIN SYR ULTRAFINE II) 31G X 5/16" 1 ML MISCIndications:Type 2 diabetes mellitus with hemoglobin A1c goal of less than 8.0% (HCC),DM type 2 nursing care encounter ([facility]) use with insulin twice daily [address] 09/11/2018 Active Acetaminophen 325 MG Oral Tablet Take 1 Tablet by mouth every 6 hours as needed for Pain. 0 Active nystatin 826897 UNIT/GM creamIndications:Tin ea corporis Apply To affected area for two weeks twice daily 45 g 2 12/06/2019 Active Additional Information Patient taking differently: BID PRN, Apply To affected area for two weeks twice daily, Informant: At Discharge, Reported on 04/07/2023 Sykio Ultra Mini w/Device KitIndications:Type 2 diabetes mellitus [...] BEFORE BEDTIME. 180 Tablet 1 03/20/2023 Active InfoAssureuch Delica Lancets 33GIndications:Type 2 diabetes mellitus with hemoglobin A1c goal of less than 8.0% (HCC) Ck FS daily E11.9 100 Each 10 03/20/2023 Active Fluticasone Propionate 50 MCG/ACT Nasal Suspension (Flonase)Indications :Chronic rhinitis USE 1 SPRAY NASALLY EVERY DAY 32 g 3 03/20/2023 Active Trelegy Ellipta 100-62.5-25 MCG/ACT Aerosol Powder Breath Activated (Fluticasone-Umeclid inium-Vilanterol)Ind ications:COPD, group B, by GOLD 2017 classification ([facility] [...] as of this encounter (statuses as of 11/22/2023) Active Problems Problem Noted Date Diagnosed Date Obesity, morbid (more than 1 00 lbs [...] classification 07/26 Overview: Noted on screening [facility] (current) use of insulin 05/16/2019 Type 2 [...] than 8.0% 05/28/2014 Overview: 05/10/14 a1c 9.4 @[facility]. documented as of this encounter (statuses as of 11/22/2023) Resolved Problems Problem Noted Date Diagnosed Date [...] 12/24/201405/2019 Acute pyelonephritis 07/27/2014 016 Overview: 06/15 [facility] ER +sepss Blood cx neg D/c on omnicef. Well adult exam 05/28/2014 09/20/2023 Overview: 02/25/23 CTA chest-1cm scletotic T4 lesion BONE SCAN no uptake. Need eval fatty liver/ update EKG. [facility] did not have on file. 05/22 EEG 72h WNL. EMG--This electrodiagnostic study is suggestive of a mild right median neuropathy at the wrist (carpal tunnel syndrome). There is no convincing electrodiagnostic evidence of a large fiber polyneuropathy. There is no electrophysiological evidence of a myopathy. 04/18 [facility] cardiac cath moderate disease small vessels, not stentable. . +borderline stress echo. EF 55-60. Mild LVH. Gr byrd dys. 10/[address] 06/16 repeat mammo/US ordered 12/14 Dr Barragan. 2 tubular adenoma <1cm Daughter Jennifer Winkler 06/15 [facility] ER ?pyelo. +powell sens E Coli documented as of this encounter (statuses as of 11/22/2023) Immunizations Name Administration Dates Next Due Pneumococcal [...] Progress Notes * Kindra Pitts PA-C - 11/22/2023 2:26 PM EST Name: Criselda Patrick Date of :1950 TRANSITION EVENT: Type: Complicated acute visit Date: November 22 Code Status: Full Code This note pertains to care provided at [facility]. Please see facility medical record for original note. This note is not to be edited or addended in [employer]. Editing or addending needs to occur in the facilities medical record. Subjective: Criselda Patrick is a 73 year old female. Patient being seen for swelling pain left knee and leg Chief Complaint Patient presents with Complicated Acute Visit HPI: I was asked to assess pt at her request and her 's request for about a one week historyof swelling, pain in left knee and leg. Pt is s/p left TKR July 2023 and did not have an ideal outcome with continued difficulty with ambulation and ROM despite much encouragement by Therapy. Notes from [facility] where pt was previously mentioned about poor motivation as an issue with pt's rehabilitation. Pt basically is sedentary and ambulates only to the restroom and back. She spends most of her day in her recliner. Pt denies any recent falls or trauma to the knee prior to developing the pain. Started out as mild aching but then swelling began with some warmth in the leg. Areas of redness along the leg but not confluent. Pt has CAD, DM, PVD, obesity and venous insufficiency. Pt wears tubigrips and tries to elevate her legs as much as possible. No chills or fever. No chest pains, dyspnea, tachypnea, hemoptysis. Vital signs have been stable. Pt is on ASA 81mg daily pt taking tylenol prn and oxycodone prn forpain. CBC Results: Results for orders placed or performed in visit on 10/31/23 CBC Result Value Ref Range WBC 6.34 4.00 - 10.80 K/uL RBC 4.91 3.85 - 5.15 M/uL HGB 12.7 12.0 - 15.3 g/dL HCT 40.7 36.0 - 45.2 % MCV 82.9 81.5 - 97.5 fL MCH 25.9 27.0 - 34.0 pg MCHC 31.2 32.0 - 36.0 g/dL RDW 17.6 11.5 - 15.5 % PLT 203 140 - 400 K/uL MPV 9.6 6.6 - 11.1 fL nRBCs 0 <=0 /100 WBCs Hemoglobin Results: Lab Results Component Value Date/Time HGB - [facility] 12.7 10/31/2023 06:35 AM HGB - [facility] 12.3 09/20/2023 05:29 AM HGB - [facility] 12.9 08/23/2023 05:29 AM Basic Panel Results: Results for [...] SODIUM - [facility] 139 07/05/2019 08:37 AM Hemoglobin AIC Results: Lab Results Component [...] vertigo), right H81.11 Coronary artery disease involving shoshone-bannock coronary artery of shoshone-bannock heart without angina pectoris I25.10 History of colon polyps 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 no severe CAD COLONOSCOPY, DIAGNOSTIC (RECTUM) 12/19/2014 adenomatous polyp, diverticulosis, repeat 5 yrs/[facility] MISCELLANEOUS ORDER ([facility] ONLY) Right 1997 lumpectomy right breast cancer [place] ARTHRP KNE CONDYLE&PLATU MEDIAL&LAT COMPARTMENTS Left 07/28/2023 TKA left, Dr Taylor [facility] REMOVE CATARACT, INSERT LENS PROSTH Left 12/27/2018 left EXTRACAPSULAR CATARACT REMOVAL WITH INTRAOCULAR LENS performed by Santiago Gill MD at OR [facility] REMOVE CATARACT, INSERT LENS PROSTH Right 01/15/2019 right EXTRACAPSULAR CATARACT REMOVAL WITH INTRAOCULAR LENS performed by Santiago Gill MD at OR [facility] Family History Problem Relation Age of Onset [...] Not on file Occupational History 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 Review of Systems: Constitutional ROS: No change in weight, No change in weakness, No change in fatigue and No fevers,sweats, or chills Nose ROS: No nasal stuffiness [...] No headaches and No seizures Psychiatric ROS: + depression, No anxiety and No psychosis Sleep: [...] sounds and no masses or organomegaly Extremities: notable swelling LLE compared to RLE. Tenderness to palpation of left knee and calf. Some erythema noted LLE in spots but no confluent erythema or rubor. Pain with attempted ROM flexion of left knee. Healed incision left knee Neuro Exam: alert & oriented x 3 with fluent speech, no focal motor/sensory deficits Skin: skin color, texture, turgor are normal, no rashes or significant lesions ASSESSMENT: Pain and swelling of left lower leg (Primary) Differential diagnosis including DVT, early cellulitis Will obtain venous doppler LLE Continue Tylenol and Oxycodone prn mild to severe pain Elevate leg as much as possible Pain and swelling of left knee S/p left TKR Need to rule out loosening of prosthesis or septic knee Will obtain CBC with diff, CRP, ESR and uric acid level Will obtain xray of left knee Status post total left knee replacement Not ideal outcome due to low motivation factor Will obtain xray of left knee to rule out loosening. Type 2 diabetes mellitus with peripheral vascular disease (HCC) Stable glucoses Continue Metformin 1000mg bid, Lantus 8 units HS and Novolog 4 units AC Coronary artery disease involving shoshone-bannock coronary artery of shoshone-bannock heart without angina pectoris Stable Continue ASA 81mg daily PLAN: Reviewed CBC, BMP, Lytes and Continue present medication(s):as ordered. Group Home Home Treatment Given: as above Electronically signed by: Kindra Pitts PA-C Over 45 minutes were spent in this visit more than half the time was spent counselling or coordinating care. documented in this encounter Plan of Treatment Upcoming Encounters Date Type Department Care Team (Late st Contact Info) Description 01/23/2024 1:00 PM EDT Office Visit Neurology [facility] [address] [facility] [place] [address] Nickolas Del Castillo, DO [address] [facility] [place] [address] Health Maintenance Due Date Last Done Comments [...] 02/10/2015 LUNG CANCER SCREENING - USE SMARTSET 78368 Completed 07/30/2021, 07/20/2020, 07/17/2019, Additional history exists [...] this encounter Medical Devices Implanted Type Area Physician Primary Care Sports Medicine Device Identifier Shelf Expiration Date Model / Serial / Lot Lens Intraoc 21.0 - [id number] - [id number] Implanted:Qty: 1 on 12/27/2018 by Santiago Gill MD at OR [facility] Left: Eye BAUSCH & LOMB 03/01/2023 [id number] / [id number] / [id number] Lens Intraoc 21.5 - [id number] - [id number] Implanted:Qty: 1 on 01/15/2019 by Santiago Gill MD at OR [facility] Right: Eye BAUSCH & LOMB 08/01/2023 [id number] / [id number] / documented as of this encounter Visit Diagnoses Diagnosis Pain and swelling of left lower leg- Primary Pain and swelling of left knee Status post total left knee replacement Type 2 diabetes mellitus with peripheral vascular disease (HCC) Coronary artery disease involving shoshone-bannock coronary artery of shoshone-bannock heart without angina pectoris documented in this encounter Advance Directives Healthcare Agents on File Name Relationship Healthcare Agent Relationshi p Communication Gene [place] Spouse Health Care Repr esentative (appointed verbally by patient or by statute hierarchy) Care Teams Forest Practices Field Coordinator Relationship Specialty Start Date End Date Renny Abdi MD [address] [place] [address] PCP - General Family Medicine 10/06/14 documented as of this encounter
--- OUTSIDE RECORDS SUMMARY | 2024-01-23 18:31 | External Medical Summary ---
Author Name Unknown Address Unknown Organization K01:[place] [place] [address] [place] [address] Laboratory Report Ordering Provider Test Date Status MISSAEL CHING 11/22/2023 15:24:06 Final Observation Date Value Abnormality Reference (Units ) Status CRP, low-sensitivity 11/22/2023 15:24:06 39 Above high normal <=5 (mg/L) Final Performing Location [facility] [place] [address] [place] [address]
--- OUTSIDE RECORDS SUMMARY | 2024-01-23 18:31 | External Medical Summary | Continuity Of Care Document ---
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 Supervisor Name Role Phone Noah Montaño Primary Care Provider [phone] Problems Code Description Start Date End Date [...] tive I25.10 Atherosclerotic hear t disease of [place] coronary artery without angina pectoris 08/21/2023 Active [...] weight Temperature SpO2 Blood Sugar Pulse Respirations 36597 128 83261 4 99.50 Oral 73829 128 01804 5 99.60 Oral 43840 129 56278 1 97.80 Oral 16648 129 56230 6 78.00 mm[Hg] - Sitting 121.00 mm[Hg] - Sitting 99.70 Oral 92.00 % 80.00/ min 20.00/min 23991 129 15192 1 98.70 Ear 56863 130 32448 9 98.70 Oral 11656 131 39529 4 98.10 Oral 06546 131 20221 0 98.50 Oral 43573 131 79740 5 96.20 Oral 72559 131 49219 3 98.30 Ear 10886 131 15452 0 97.60 Oral 36615 201 74646 4 98.00 Oral 78626 201 77036 0 97.00 Oral 96206 201 35310 6 97.60 Oral 06422 201 80872 6 97.60 Oral 05856 202 02385 7 96.80 Oral 66209 202 52269 9 96.80 Oral 81978 203 34733 2 97.40 Oral 64497 203 39727 5 96.90 Oral 41416 203 14666 1 96.70 Oral 40227 204 53843 5 97.10 Ear 45175 204 74736 0 97.30 Ear 85022 204 01247 4 97.00 Oral 66450 204 09424 0 97.30 Oral 98594 205 17368 2 97.30 Oral 71134 205 85485 3 97.30 Oral 62350 206 69795 4 233.00 NI [address] 206 97730 4 97.80 Ear 64067 206 86659 6 80.00 mm[Hg] - Sitting 122.00 mm[Hg] - Sitting 98.40 Ear 82.00/ min 76894 207 63989 6 97.30 Oral 80109 207 19191 6 127.00 mg/dL 61692 207 78453 8 97.20 Oral Immunizations Vaccine Date Status COVID-19 03/07/2023 Resident Refused Influenza 06/16/2022 Completed (PCV13)Pneumococcal 04/26/2016 Completed (PPSV23)Pneumococcal 07/08/2021 Completed Shingles 09/11/2014 Completed TDaP 05/28/2014 Completed
--- OUTSIDE RECORDS SUMMARY | 2024-01-23 18:31 | External Medical Summary | Summary of Care ---
Author Name Unknown Organization [facility] Address [address] [place] [address] Phone [phone] Care Team Providers Care Mail Carrier Name Role Phone Renny Abdi MD Primary Care Provider + Reason for Visit * Reason Onset Date Comments Assisted Visit 11/23/2023 Encounter Details Date Type Department Care Team (Latest Contact Info) Description 11/23/2023 9:00 AM EST Assisted Visit [facility] [address] [place] [address] Kindra Pitts PA-C [address] [place] [address] Pain and swelling of left lower leg*; S/P TKR (total knee replacement), left; Venous insufficiency; Cellulitis of left leg Allergies No known active allergiesdocumented as of this encounter (statuses as of 11/23/2023) Medications Medication Sig Dispensed Refills Start Date End Date Status Insulin Syringe-Needle U-100 (BD INSULIN SYR ULTRAFINE II) 31G X 5/16" 1 ML MISCIndications:Type 2 diabetes mellitus with hemoglobin A1c goal of less than 8.0% ([facility]),DM type 2 nursing care encounter ([facility]) use with insulin twice daily [address] 09/11/2018 Active Acetaminophen 325 MG Oral Tablet Take 1 Tablet by mouth every 6 hours as needed for Pain. 0 Active nystatin 225836 UNIT/GM creamIndications:Tin ea corporis Apply To affected area for two weeks twice daily 45 g 2 12/06/2019 Active Additional Information Patient taking differently: BID PRN, Apply To affected area for two weeks twice daily, Informant: At Discharge, Reported on 04/07/2023 OneTouch Ultra Mini w/Device KitIndications:Type 2 diabetes mellitus [...] ications:COPD, group B, by GOLD 2017 classification ([facility]) Inhale 1 Puff by mouth in the morning. 180 Each 3 03/20/2023 Active Albuterol Sulfate (2.5 MG/3ML) 0.083% Inhalation Nebulization Solution Inhale 1 Vial via nebulizer. As directed, if needed, for shortness of breath or wheezing 0 Active OneTouch Ultra In Vitro Strip (Glucose Blood)Indications:Ty pe 2 diabetes mellitus with hemoglobin A1c goal of less than 8.0% ([facility]) Use as directed 2 times daily E11.9 [...] 2 diabetes mellitus with peripheral vascular disease ([facility]) Take 1 Tablet by mouth at bedtime. [...] as of this encounter (statuses as of 11/23/2023) Active Problems Problem Noted Date Diagnosed Date [...] classification 07/26 Overview: Noted on screening CT residential (current) use of insulin 05/16/2019 Type 2 diabetes mellitus with peripheral vascula r disease 05/16/2019 Elevated diaphragm 05/16/2019 History of colon polyps 05/09/2019 BPPV (benign paroxysmal positional vertigo), rig ht 04/28/2018 Coronary artery disease invo lving [place] coronary artery of [place] heart without angina pectoris 04/28/2018 Overactive bladder 12/12/2017 DM type 2 with diabetic peripheral neuropathy History of breast cancer 10/28/2016 Overview: S/p lumpectomy, XRT Arthritis of hand, degenerative 05/19/2015 Dyslipidemia, goal LDL below 100 10/06/2014 Nephrolithiasis 07/27/2014 Panic attacks 07/27/2014 Type 2 diabetes mellitus wit h hemoglobin A1c goal of less than 8.0% 05/28/2014 Overview: 05/10/14 a1c 9.4 @[facility]. documented as of this encounter (statuses as of 11/23/2023) Resolved Problems Problem Noted Date Diagnosed Date [...] Acute pyelonephritis 07/27/2014 016 Overview: 06/15 [facility] ER +sepss Blood cx neg D/c on omnicef. Well adult exam 05/28/2014 09/20/2023 Overview: 02/25/23 CTA chest-1cm scletotic T4 lesion BONE SCAN no uptake. Need eval fatty liver/ update EKG. [facility] did not have on file. 05/22 EEG 72h WNL. EMG--This electrodiagnostic study is suggestive of a mild right median neuropathy at the wrist (carpal tunnel syndrome). There is no convincing electrodiagnostic evidence of a large fiber polyneuropathy. There is no electrophysiological evidence of a myopathy. 04/18 [facility] cardiac cath moderate disease small vessels, not stentable. . +borderline stress echo. EF 55-60. Mild LVH. Gr byrd dys. 10/[address] 06/16 repeat mammo/US ordered 12/14 Dr Barragan. 2 tubular adenoma <1cm Daughter Jennifer Winkler 06/15 [facility] ER ?pyelo. +powell sens E Coli documented as of this encounter (statuses as of 11/23/2023) Immunizations Name Administration Dates Next Due Pneumococcal [...] Office [facility] [address] [facility] [place] [address] Nickolas Del Castillo, DO [address] [place] [address] Health Maintenance Due Date Last Done Comments [...] 02/10/2015 LUNG CANCER SCREENING - USE SMARTSET [id number] Completed 07/30/2021, 07/20/2020, 07/17/2019, Additional history exists [...] this encounter Medical Devices Implanted Type Area Spouter Device Identifier Shelf Expiration Date Model / Serial / Lot Lens Intraoc 21.0 - [id number] - [id number] Implanted:Qty: 1 on 12/27/2018 by Santiago Gill MD at OR [facility] Left: Eye BAUSCH [employer] LOMB 03/01/2023 [id number] / [id number] / [id number] Lens Intraoc 21.5 - [id number] - [id number] Implanted:Qty: 1 on 01/15/2019 by Santiago Gill MD at OR [facility] Right: Eye BAUSCH & LOMB 08/01/2023 [id number] / [id number] / documented as of this encounter Visit Diagnoses Diagnosis Pain and swelling of left lower leg- Primary S/P TKR (total knee replacement), left Venous insufficiency Unspecified venous (peripheral) insufficiency Cellulitis of left leg Cellulitis and abscess of leg, except foot documented in this encounter Advance Directives Healthcare Agents on File Name Relationship Healthcare Agent Relationshi p Communication Gene [place] Spouse Health Care Repr esentative (appointed verbally by patient or by statute hierarchy) Care Teams Mail Carrier Relationship Specialty Start Date End Date Renny Abdi MD [address] [place] [address] PCP - General Family Medicine 10/06/14 documented as of this encounter
--- OUTSIDE RECORDS SUMMARY | 2024-01-23 18:31 | External Medical Summary ---
Author Name Unknown Address Unknown Organization K01:[facility]ORY [facility] [place] - [address] [place] [id number] Laboratory Report Ordering Provider Test Date Status MISSAEL CHING 11/22/2023 15:24:06 Final Observation Date Value Abnormality Reference (Units ) Status SYNC LEUKOCYTES IN BLOOD BY AUTOMATED COUNT 11/22/2023 15:24:06 9.87 4.00-10.80 (K/uL) Final Segs 11/22/2023 15:24:06 65.3 40.0-75.0 (%) Final Lymphs % 11/22/2023 15:24:06 23.8 18.0-42.0 (%) Final Monos 11/22/2023 15:24:06 6.7 1.0-11.0 (%) Final Eosinophils 11/22/2023 15:24:06 2.7 0.0-6.0 (%) Final Basos 11/22/2023 15:24:06 0.6 0.0-2.0 (%) Final Immature Granulocyte, Percent 11/22/2023 15:24:06 0.9 0.0-2.0 (%) Final Absolute Segs 11/22/2023 15:24:06 6.44 1.80-7.70 (K/uL) Final Lymphs, absolute 11/22/2023 15:24:06 2.35 1.00-4.80 (K/ul) Final Monos, Abs 11/22/2023 15:24:06 0.66 0.00-1.10 (K/uL) Final Eos, Abs 11/22/2023 15:24:06 0.27 0.00-0.70 (K/uL) Final Basos, Abs 11/22/2023 15:24:06 0.06 0.00-0.20 (K/uL) Final Immature Granulocytes, Number 11/22/2023 15:24:06 0.09 0.00-0.20 (K/uL) Final Performing Location [facility]ORY [facility] [place] - [address] [place] [facility] [address]
--- OUTSIDE RECORDS SUMMARY | 2024-01-23 18:31 | External Medical Summary | Summary of Care ---
Author Name Unknown Organization [facility] Address [address] [place] [address] Phone [phone] Care Team Providers Care President And Ceo Name Role Phone Renny Abdi MD Primary Care Provider + Reason for Visit * Reason Comments Outpatient Testing Encounter Details Date Type Department Care Team (Late st Contact Info) Description 11/22/2023 3:20 PM EST Laboratory Laboratory [address] [place] [id number] , Specimen Drop Off [address] [place] [address] Left leg swelling Allergies No known active allergiesdocumented as of this encounter (statuses as of 11/22/2023) Medications Medication Sig Dispensed Refills Start Date End Date Status Insulin Syringe-Needle U-100 (BD INSULIN SYR ULTRAFINE II) 31G X /" 1 ML MISCIndications:Type 2 diabetes mellitus with hemoglobin A1c goal of less than 8.0% ([facility]),DM type 2 nursing care encounter ([facility]) use with insulin twice daily [address] 09/11/2018 Active Acetaminophen 325 MG Oral Tablet Take 1 Tablet by mouth every 6 hours as needed for Pain. 0 Active nystatin 585837 UNIT/GM creamIndications:Tin ea corporis Apply To affected area for two weeks twice daily 45 g 2 12/06/2019 Active Additional Information Patient taking differently: BID PRN, Apply To affected area for two weeks twice daily, Informant: At Discharge, Reported on 04/07/2023 Crowd[employer] Mini w/Device KitIndications:Type 2 diabetes mellitus with hemoglobin A1c goal of less than 8.0% ([facility]) Ck FS twice daily on insulin E [...] BEFORE BEDTIME. 180 Tablet 1 03/20/2023 Active PredictionIO Rik Alexander 33GIndications:Type 2 diabetes mellitus with hemoglobin A1c goal of less than 8.0% ([facility]) Ck FS daily E11.9 100 Each 10 03/20/2023 Active Fluticasone Propionate 50 MCG/ACT Nasal Suspension (Flonase)Indications :Chronic rhinitis USE 1 SPRAY NASALLY EVERY DAY 32 g 3 03/20/2023 Active Trelegy Ellipta 100-62.5-25 MCG/ACT Aerosol Powder Breath Activated (Fluticasone-Umeclid inium-Vilanterol)Ind ications:COPD, group B, by GOLD 2017 classification ([facility]) Inhale 1 Puff by mouth in the [...] classification 07/26 Overview: 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 05/16/2019 Type 2 diabetes mellitus with peripheral vascula r disease 05/16/2019 Elevated diaphragm 05/16/2019 History of colon polyps 05/09/2019 BPPV (benign paroxysmal positional vertigo), rig ht 04/28/2018 Coronary artery disease invo lving [place] coronary artery of [place] heart without angina pectoris 04/28/2018 Overactive bladder 12/12/2017 DM type 2 with diabetic peripheral neuropathy History of breast cancer 10/28/2016 Overview: S/p lumpectomy, XRT Arthritis of hand, degenerative 05/19/2015 Dyslipidemia, goal LDL below 100 10/06/2014 Nephrolithiasis 07/27/2014 Panic attacks 07/27/2014 Type 2 diabetes mellitus wit h hemoglobin A1c goal of less than 8.0% 05/28/2014 Overview: 05/10/14 a1c 9.4 @[facility]. documented as of this encounter (statuses as [...] Acute pyelonephritis 07/27/2014 016 Overview: 06/15 [facility] ER +sepss Blood cx neg D/c on omnicef. Well adult exam 05/28/2014 09/20/2023 Overview: 02/25/23 CTA chest-1cm scletotic T4 lesion BONE SCAN no uptake. Need eval fatty liver/ update EKG. [facility] did not have on file. 05/22 EEG 72h WNL. EMG--This electrodiagnostic study is suggestive of a mild right median neuropathy at the wrist (carpal tunnel syndrome). There is no convincing electrodiagnostic evidence of a large fiber polyneuropathy. There is no electrophysiological evidence of a myopathy. 04/18 [facility] cardiac cath moderate disease small vessels, not stentable. . +borderline stress echo. EF 55-60. Mild LVH. Gr byrd dys. 10/[address] 06/16 repeat mammo/US ordered 12/14 Dr Barragan. 2 tubular adenoma <1cm Daughter Jennifer [place] 06/15 [facility] ER ?pyelo. +powell sens E Coli documented [...] Visit Neurology [employer] [address] [place] [address] Nickolas Del Castillo, [address] [place] [address] Pending Results Name Type Priority Associated Diagnoses Date /Time CRP (INFLAMMATORY MARKER) Lab Routine Left leg swelling 11/22/2023 3:24 PM EST CBC WITH WBC DIFFERENTIAL Lab Routine Left leg swelling 11/22/2023 3:24 PM EST ERYTHROCYTE SEDIMENTATION RATE (ESR) Lab Routine Left leg swelling 11/22/2023 3:24 PM EST URIC ACID Lab Routine Left leg swelling 11/22/2023 3:24 PM EST CBC Lab Routine Left leg swelling 11/22/2023 3:24 PM EST DIFFERENTIAL, AUTOMATED Lab Routine Left leg swelling 11/22/2023 3:24 PM EST Health Maintenance Due Date Last Done [...] 02/10/2015 LUNG CANCER SCREENING - USE SMARTSET 59865 Completed 07/30/2021, 07/20/2020, 07/17/2019, Additional history exists [...] this encounter Medical Devices Implanted Type Area Fretted Instrument Maker Hand Device Identifier Shelf Expiration Date Model / Serial / Lot Lens Intraoc 21.0 - [id number] - [id number] Implanted:Qty: 1 on 12/27/2018 by Santiago Gill MD at OR [facility] Left: Eye [employer] 03/01/2023 [id number] / [id number] / [id number] Lens Intraoc 21.5 - [id number] - [id number] Implanted:Qty: 1 on 01/15/2019 by Santiago Gill MD at OR [facility] Right: Eye [employer]OMB 08/01/2023 [id number] / [id number] / documented as of this encounter Visit Diagnoses Diagnosis Left leg swelling documented in this encounter Advance Directives Healthcare Agents on File Name Relationship Healthcare Agent Relationshi p Communication Gene Sana Spouse Health Care Repr esentative (appointed verbally by patient or by statute hierarchy) Care Teams President And Ceo Relationship Specialty Start Date End Date Renny Abdi MD [address] [place] [address] PCP - General Family Medicine 10/06/14 documented as of this encounter
--- OUTSIDE RECORDS SUMMARY | 2024-01-23 18:31 | External Medical Summary ---
Author Name Unknown Address Unknown Organization K01:[facility] - [facility] [address] [facility] [address] Laboratory Report Ordering Provider Test Date Status MISSAEL CHING 11/22/2023 15:24:06 Final Observation Date Value Abnormality Reference (Units ) Status WBC, Total 11/22/2023 15:24:06 9.87 4.00-10.80 (K/uL) Final RBC 11/22/2023 15:24:06 5.43 3.85-5.15 (M/uL) Final Hemoglobin 11/22/2023 15:24:06 14.1 12.0-15.3 (g/dL) Final HCT 11/22/2023 15:24:06 44.7 36.0-45.2 (%) Final MCV 11/22/2023 15:24:06 82.3 81.5-97.5 (fL) Final MCH 11/22/2023 15:24:06 26.0 27.0-34.0 (pg) Final MCHC 11/22/2023 15:24:06 31.5 32.0-36.0 (g/dL) Final RDW 11/22/2023 15:24:06 19.1 11.5-15.5 (%) Final Platelets 11/22/2023 15:24:06 253 140-400 (K/uL) Final MPV 11/22/2023 15:24:06 9.6 6.6-11.1 (fL) Final Nucleated erythrocytes/100 leukocytes [Ratio] in Blood by Automated count 11/22/2023 15:24:06 0 <=0 (/100 WBCs) Final Performing Location [facility] - [address] [place] [address]
--- OUTSIDE RECORDS SUMMARY | 2024-01-23 18:31 | External Medical Summary | Continuity Of Care Document ---
Author Name Unknown Address [address] [place] [address] Organization [facility] ( ) Care Team Providers Care Gasoline Finisher Name Role Phone Noah Montaño Primary Care Provider [phone] Problems Code Description Start Date End Date [...] tive I25.10 Atherosclerotic hear t disease of [place] coronary artery without angina pectoris 08/21/2023 Active [...] weight Temperature SpO2 Blood Sugar Pulse Respirations 79051 128 49766 4 99.50 Oral 89502 128 44008 5 99.60 Oral 46605 129 09178 1 97.80 Oral 91464 129 33189 6 78.00 mm[Hg] - Sitting 121.00 mm[Hg] - Sitting 99.70 Oral 92.00 % 80.00/ min 20.00/min 56266 129 97043 1 98.70 Ear 87427 130 73073 9 98.70 Oral 86700 131 39825 4 98.10 Oral 99026 131 46413 0 98.50 Oral 05591 131 04106 5 96.20 Oral 47033 131 15964 3 98.30 Ear 90591 131 57042 0 97.60 Oral 49047 201 62370 4 98.00 Oral 16897 201 07919 0 97.00 Oral 54752 201 46932 6 97.60 Oral 32283 201 49950 6 97.60 Oral 85195 202 88082 7 96.80 Oral 15520 202 44803 9 96.80 Oral 09780 203 80578 2 97.40 Oral 49519 203 22737 5 96.90 Oral 79997 203 24048 1 96.70 Oral 43584 204 07284 5 97.10 Ear 39790 204 28670 0 97.30 Ear 57601 204 69827 4 97.00 Oral 39268 204 59446 0 97.30 Oral 42981 205 79976 2 97.30 Oral 05850 205 60010 3 97.30 Oral 38047 206 03291 4 233.00 [place] [address]24 206 31283 4 97.80 Ear 90176 206 39909 6 80.00 mm[Hg] - Sitting 122.00 mm[Hg] - Sitting 98.40 Ear 82.00/ min 23202 207 06606 6 97.30 Oral 94211 207 31376 6 127.00 mg/dL 59935 207 48817 8 97.20 Oral Immunizations Vaccine Date Status COVID-19 03/07/2023 Resident Refused Influenza 06/16/2022 Completed (PCV13)Pneumococcal 04/26/2016 Completed (PPSV23)Pneumococcal 07/08/2021 Completed Shingles 09/11/2014 Completed TDaP 05/28/2014 Completed
--- OUTSIDE RECORDS SUMMARY | 2024-01-23 18:32 | External Medical Summary | Summary of Care ---
Author Name Unknown Organization [facility] Address [address] [place] [address] Phone [phone] Care Team Providers Care Mortgage Loan Computation Clerk Name Role Phone Renny Abdi MD Primary Care Provider + Reason for Visit * Reason Onset Date Comments Retirement Visit 11/01/2023 Encounter Details Date Type Department Care Team (Latest Contact Info) Description 11/01/2023 7:00 AM EST Retirement Visit [facility] [address] [place] [address] Kindra Pitts PA-C [address] [place] [address] COVID-19 virus infection*; COPD, group B, by GOLD 2017 classification ([facility]); Coronary artery disease involving [place] coronary artery of [place] heart without angina pectoris; 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[facility]); Type 2 diabetes mellitus with peripheral vascular disease ([facility]) Allergies No known active allergiesdocumented as of this encounter (statuses as of 11/01/2023) Medications Medication Sig Dispensed Refills Start Date End Date Status Insulin Syringe-Needle U-100 (BD INSULIN SYR ULTRAFINE II) 31G X 5/16" 1 ML MISCIndications:Type 2 diabetes mellitus with hemoglobin A1c goal of less than 8.0% ([facility]),DM type 2 nursing care encounter ([facility]) use with insulin twice daily [address] 09/11/2018 Active Acetaminophen 325 MG Oral Tablet Take 1 Tablet by mouth every 6 hours as needed for Pain. 0 Active nystatin 718679 UNIT/GM creamIndications:Tin ea corporis Apply To affected area for two weeks twice daily 45 g 2 12/06/2019 Active Additional Information Patient taking differently: BID PRN, Apply To affected area for two weeks twice daily, Informant: At Discharge, Reported on 04/07/2023 Bin1 [employer] Ultra Mini w/Device KitIndications:Type 2 diabetes mellitus [...] BEFORE BEDTIME. 180 Tablet 1 03/20/2023 Active AirKastuch Delica Lancets 33GIndications:Type 2 diabetes mellitus with hemoglobin A1c goal of less than 8.0% (HCC) Ck FS daily E11.9 100 Each 10 03/20/2023 Active Fluticasone Propionate 50 MCG/ACT Nasal Suspension (Flonase)Indications :Chronic rhinitis USE 1 SPRAY NASALLY EVERY DAY 32 g 3 03/20/2023 Active Trelegy Ellipta 100-62.5-25 MCG/ACT Aerosol Powder Breath Activated (Fluticasone-Umeclid inium-Vilanterol)Ind ications:COPD, group B, by GOLD 2017 classification ([facility]) Inhale 1 Puff by mouth in the morning. 180 Each 3 03/20/2023 Active Albuterol Sulfate (2.5 MG/3ML) 0.083% Inhalation Nebulization Solution Inhale 1 Vial via nebulizer. As directed, if needed, for shortness of breath or wheezing 0 Active OneTouch Ultra In Vitro Strip (Glucose Blood)Indications:Ty pe 2 diabetes mellitus with hemoglobin A1c goal of less than 8.0% ([facility]) Use as directed 2 [...] diabetes mellitus with peripheral vascular disease ([facility]) Take 1 Tablet by mouth [...] the skin at bedtime. 0 08/22/2023 Active oxyCODONE HCl 5 MG Oral Tablet (Oxy IR) Take 1 Tablet by mouth every 6 hours as needed for Pain, Severe or Pain, Moderate. 30 Tablet 0 09/01/2023 Active Melatonin 5 MG Oral Tablet Take [...] mouth in the morning. 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 05/16/2019 Type 2 diabetes mellitus with peripheral vascula r disease 05/16/2019 Elevated diaphragm 05/16/2019 History of colon polyps 05/09/2019 BPPV (benign paroxysmal positional vertigo), rig ht 04/28/2018 Coronary artery disease invo lving [place] coronary artery of [place] heart without angina pectoris 04/28/2018 Overactive bladder 12/12/2017 DM type 2 with diabetic peripheral neuropathy History of breast cancer 10/28/2016 Overview: S/p lumpectomy, XRT Arthritis of hand, degenerative 05/19/2015 Dyslipidemia, goal LDL below 100 10/06/2014 Nephrolithiasis 07/27/2014 Panic attacks 07/27/2014 Type 2 diabetes mellitus wit h hemoglobin A1c goal of less than 8.0% 05/28/2014 Overview: 05/10/14 a1c 9.4 @[facility]. documented as of this encounter (statuses as of 11/01/2023) Resolved Problems Problem Noted Date Diagnosed Date [...] 12/24/201405/2019 Acute pyelonephritis 07/27/2014 016 Overview: 06/15 [facility] ER +sepss Blood cx neg D/c on omnicef. Well adult exam 05/28/2014 09/20/2023 Overview: 02/25/23 CTA chest-1cm scletotic T4 lesion BONE SCAN no uptake. Need eval fatty liver/ update EKG. [facility] did not have on file. 05/22 EEG 72h WNL. EMG--This electrodiagnostic study is suggestive of a mild right median neuropathy at the wrist (carpal tunnel syndrome). There is no convincing electrodiagnostic evidence of a large fiber polyneuropathy. There is no electrophysiological evidence of a myopathy. 04/18 [facility] cardiac cath moderate disease small vessels, not stentable. . +borderline stress echo. EF 55-60. Mild LVH. Gr byrd dys. 10/[address] 06/16 repeat mammo/US ordered 12/14 Dr Barragan. 2 tubular adenoma <1cm Daughter Jennifer [place]ler 06/15 [facility] ER ?pyelo. +powell sens E Coli documented as of this encounter (statuses as of 11/01/2023) Immunizations Name Administration Dates Next Due Pneumococcal [...] Date Smoking Tobacco: Former Cigarettes 1 50 Q uit: 10/23/2010 Smokeless Tobacco: Never Alcohol Use Standard [...] Care Team (Late st Contact Info) Description 11/10/2023 9:20 AM EST Office Visit Family [facility] [address] [place] [address] Renny Abdi MD [address] [place] [address] 01/23/2024 1:00 PM EDT Office Visit Neurology [facility] [address] [place] [address] Nickolas Del Castillo, [address] [place] [address] Health Maintenance Due Date Last Done Comments COVID-19 Vaccine (#1) 1950 Hepatitis B (1 of 3 - Risk 3-dose series) 2011 Zoster Vaccines (2 of 3) 11/06/2015 09/11/2015 [...] Additional history exists DXA Scan 01/31/2023 02/01/2016 Influenza Vaccine (FLU shot) (#1) 2023 06/16/2022, 07/08/2021, 09/11/2015, Additional history exists DTaP,Tdap,and Td Vaccines (2 - Td or Tdap) 05/28/2024 05/28/2014 O2 ASSESSMENT COMPLETED IN PAST YEAR FOR COPD 07/11/2024 07/11/2023 GFR 10/31/2024 10/31/2023, 09/02, 09/20/2023, Additional history exists Alpha-1 Antitrypsin Completed 03/12/2020 Pneumococcal Vaccine: 65+ Years Completed 07/08/2021, 04/26/2016, 02/10/2015 LUNG CANCER SCREENING - USE SMARTSET 29300 Completed 07/30/2021, 07/20/2020, 07/17/2019, Additional history exists GARDASIL-HPV IMMUNIZATION SERIES Aged Out No longer eligible based on patient's age to complete this topic MENINGOCOCCAL (MENACTRA/MENVEO) Aged Out No longer eligible based on patient's age to complete this topic documented as of this encounter Medical Devices Implanted Type Area Risk Professional Device Identifier Shelf Expiration Date Model / Serial / Lot Lens Intraoc 21.0 - [id number] - [id number] Implanted:Qty: 1 on 12/27/2018 by Santiago Gill MD at OR [facility] Left: Eye [employer] 03/01/2023 [id number] / [id number] / [id number] Lens Intraoc 21.5 - [id number] - [id number] Implanted:Qty: 1 on 01/15/2019 by Santiago Gill MD at OR [facility] Right: Eye [employer]CH [employer]OMB 08/01/2023 [id number] / [id number] / documented as of this encounter Visit Diagnoses Diagnosis COVID-19 virus infection- Primary COPD, group B, by GOLD 2017 classification (HCC) Coronary artery disease involving [place] coronary artery of [place] heart without angina pectoris 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
--- OUTSIDE RECORDS SUMMARY | 2024-01-23 18:32 | External Medical Summary | Continuity Of Care Document ---
Author Name Unknown Address [address] [place] [address] Organization [facility] ( ) Care Team Providers Care Sled Maker Name Role Phone Noah Montaño Primary Care Provider [phone] Problems Code Description Start Date End Date [...] tive I25.10 Atherosclerotic hear t disease of [place] coronary artery without angina pectoris 08/21/2023 Active [...] weight Temperature SpO2 Blood Sugar Pulse Respirations 51908 128 90310 4 99.50 Oral 35683 128 14575 5 99.60 Oral 31455 129 65385 1 97.80 Oral 12432 129 00235 6 78.00 mm[Hg] - Sitting 121.00 mm[Hg] - Sitting 99.70 Oral 92.00 % 80.00/ min 20.00/min 32643 129 81601 1 98.70 Ear 02264 130 23759 9 98.70 Oral 81343 131 38953 4 98.10 Oral 57682 131 36791 0 98.50 Oral 96550 131 22269 5 96.20 Oral 18206 131 01388 3 98.30 Ear 25719 131 07334 0 97.60 Oral 62428 201 14548 4 98.00 Oral 58559 201 18677 0 97.00 Oral 20020 201 74143 6 97.60 Oral 49110 201 55885 6 97.60 Oral 21334 202 05707 7 96.80 Oral 79758 202 92082 9 96.80 Oral 29806 203 57143 2 97.40 Oral 14375 203 41498 5 96.90 Oral 21077 203 88322 1 96.70 Oral 60464 204 78147 5 97.10 Ear 88232 204 60548 0 97.30 Ear 23476 204 80117 4 97.00 Oral 21318 204 63368 0 97.30 Oral 27093 205 96320 2 97.30 Oral 02377 205 22038 3 97.30 Oral 03073 206 33437 4 233.00 NI 92523 206 96592 4 97.80 Ear 53556 206 93467 6 80.00 mm[Hg] - Sitting 122.00 mm[Hg] - Sitting 98.40 Ear 82.00/ min 04812 207 01726 6 97.30 Oral 28334 207 08998 6 127.00 mg/dL 21577 207 19119 8 97.20 Oral Immunizations Vaccine Date Status COVID-19 03/07/2023 Resident Refused Influenza 06/16/2022 Completed (PCV13)Pneumococcal 04/26/2016 Completed (PPSV23)Pneumococcal 07/08/2021 Completed Shingles 09/11/2014 Completed TDaP 05/28/2014 Completed
--- OUTSIDE RECORDS SUMMARY | 2024-01-23 18:32 | External Medical Summary | Continuity Of Care Document ---
Author Name Unknown Address [address] [place] [address] Organization [facility] ( ) Care Team Providers Care Yard Truck Driver Name Role Phone Noah Montaño Primary Care Provider [phone] Problems Code Description Start Date End Date [...] tive I25.10 Atherosclerotic hear t disease of [place] coronary artery without angina pectoris 08/21/2023 Active [...] weight Temperature SpO2 Blood Sugar Pulse Respirations 58089 128 10375 4 99.50 Oral 26469 128 93315 5 99.60 Oral 10286 129 40108 1 97.80 Oral 44565 129 74026 6 78.00 mm[Hg] - Sitting 121.00 mm[Hg] - Sitting 99.70 Oral 92.00 % 80.00/ min 20.00/min 87849 129 76442 1 98.70 Ear 13255 130 12562 9 98.70 Oral 87548 131 29496 4 98.10 Oral 74697 131 27716 0 98.50 Oral 55247 131 15228 5 96.20 Oral 70305 131 75986 3 98.30 Ear 26412 131 75633 0 97.60 Oral 58177 201 92115 4 98.00 Oral 69259 201 44682 0 97.00 Oral 34339 201 05599 6 97.60 Oral 86053 201 02960 6 97.60 Oral 52645 202 69509 7 96.80 Oral 21837 202 00972 9 96.80 Oral 85945 203 48031 2 97.40 Oral 59765 203 53995 5 96.90 Oral 77218 203 87580 1 96.70 Oral 08999 204 07492 5 97.10 Ear 33702 204 50552 0 97.30 Ear 92854 204 94760 4 97.00 Oral 53347 204 20287 0 97.30 Oral 67225 205 38254 2 97.30 Oral 77626 205 99767 3 97.30 Oral 63497 206 28525 4 233.00 NI 44731 206 33408 4 97.80 Ear 03891 206 52155 6 80.00 mm[Hg] - Sitting 122.00 mm[Hg] - Sitting 98.40 Ear 82.00/ min 94463 207 97678 6 97.30 Oral 66438 207 87954 6 127.00 mg/dL 63788 207 19609 8 97.20 Oral Immunizations Vaccine Date Status COVID-19 03/07/2023 Resident Refused Influenza 06/16/2022 Completed (PCV13)Pneumococcal 04/26/2016 Completed (PPSV23)Pneumococcal 07/08/2021 Completed Shingles 09/11/2014 Completed TDaP 05/28/2014 Completed
--- OUTSIDE RECORDS SUMMARY | 2024-01-23 18:32 | External Medical Summary | Summary of Care ---
Author Name Unknown Organization [facility] Address [address] [place] [address] Phone [phone] Care Team Providers Care Pattern Assembler Name Role Phone Renny Abdi MD Primary Care Provider + Reason for Visit * Reason Onset Date Comments Retirement Visit 11/13/2023 Encounter Details Date Type Department Care Team (Latest Contact Info) Description 11/13/2023 8:30 AM EST Retirement Visit [facility] [address], [place] [id number] Kindra Pitts PA-C [address] [place] [address] Thrush*; History of 2019 novel coronavirus disease (COVID-19); COPD, group B, by GOLD 2017 classification ([facility]); Type 2 diabetes mellitus with hemoglobin A1c goal of less than 8.0% ([facility]) Allergies No known active allergiesdocumented as of this encounter (statuses as of 11/13/2023) Medications Medication Sig Dispensed Refills Start Date End Date Status Insulin Syringe-Needle U-100 (BD INSULIN SYR ULTRAFINE II) 31G X 5/16" 1 ML MISCIndications:Type 2 diabetes mellitus with hemoglobin A1c goal of less than 8.0% ([facility]),DM type 2 nursing care encounter ([facility]) use with insulin twice daily [address] 09/11/2018 Active Acetaminophen 325 MG Oral Tablet Take 1 Tablet by mouth every 6 hours as needed for Pain. 0 Active nystatin 408109 UNIT/GM creamIndications:Tin ea corporis Apply To affected area for two weeks twice daily 45 g 2 12/06/2019 Active Additional Information Patient taking differently: BID PRN, Apply To affected area for two weeks twice daily, Informant: At Discharge, Reported on 04/07/2023 [employer] Ultra Mini w/Device KitIndications:Type 2 diabetes mellitus [...] BEFORE BEDTIME. 180 Tablet 1 03/20/2023 Active [employer] Delica Lancets 33GIndications:Type 2 diabetes mellitus with hemoglobin A1c goal of less than 8.0% (HCC) Ck FS daily E11.9 100 Each 10 03/20/2023 Active Fluticasone Propionate 50 MCG/ACT Nasal Suspension (Flonase)Indications :Chronic rhinitis USE 1 SPRAY NASALLY EVERY DAY 32 g 3 03/20/2023 Active Trelegy Ellipta 100-62.5-25 MCG/ACT Aerosol Powder Breath Activated (Fluticasone-Umeclid inium-Vilanterol)Ind ications:COPD, group B, by GOLD 2017 classification ([facility]) Inhale 1 Puff by mouth in the morning. 180 Each 3 03/20/2023 Active Albuterol Sulfate (2.5 MG/3ML) 0.083% Inhalation Nebulization Solution Inhale 1 Vial via nebulizer. As directed, if needed, for shortness of breath or wheezing 0 Active OneTouch Ultra In Vitro Strip (Glucose Blood)Indications:Ty pe 2 diabetes mellitus with hemoglobin A1c goal of less than 8.0% ([facility]) Use as directed 2 times daily [...] diabetes mellitus with peripheral vascular disease ([facility]) Take 1 Tablet by mouth at [...] as of this encounter (statuses as of 11/13/2023) Active Problems Problem Noted Date Diagnosed Date [...] classification 07/26 Overview: Noted on screening CT back sewer (current) use of insulin 05/16/2019 Type 2 diabetes mellitus with peripheral vascula r disease 05/16/2019 Elevated diaphragm 05/16/2019 History of colon polyps 05/09/2019 BPPV (benign paroxysmal positional vertigo), rig ht 04/28/2018 Coronary artery disease invo lving [place] coronary artery of [place] heart without angina pectoris 04/28/2018 Overactive bladder 12/12/2017 DM type 2 with diabetic peripheral neuropathy History of breast cancer 10/28/2016 Overview: S/p lumpectomy, XRT Arthritis of hand, degenerative 05/19/2015 Dyslipidemia, goal LDL below 100 10/06/2014 Nephrolithiasis 07/27/2014 Panic attacks 07/27/2014 Type 2 diabetes mellitus wit h hemoglobin A1c goal of less than 8.0% 05/28/2014 Overview: 05/10/14 a1c 9.4 @[facility]. documented as of this encounter (statuses as of 11/13/2023) Resolved Problems Problem Noted Date Diagnosed Date [...] 12/24/201405/2019 Acute pyelonephritis 07/27/2014 016 Overview: 06/15 [facility] ER +sepss Blood cx neg D/c on omnicef. Well adult exam 05/28/2014 09/20/2023 Overview: 02/25/23 CTA chest-1cm scletotic T4 lesion BONE SCAN no uptake. Need eval fatty liver/ update EKG. [facility] did not have on file. 05/22 EEG 72h WNL. EMG--This electrodiagnostic study is suggestive of a mild right median neuropathy at the wrist (carpal tunnel syndrome). There is no convincing electrodiagnostic evidence of a large fiber polyneuropathy. There is no electrophysiological evidence of a myopathy. 04/18 [facility] cardiac cath moderate disease small vessels, not stentable. . +borderline stress echo. EF 55-60. Mild LVH. Gr byrd dys. 10/[address] 06/16 repeat mammo/US ordered 12/14 Dr Barragan. 2 tubular adenoma <1cm Daughter Jennifer Winkler 06/15 [facility] ER ?pyelo. +powell sens E Coli documented as of this encounter (statuses as of 11/13/2023) Immunizations Name Administration Dates Next Due Pneumococcal [...] the money to buy more. Never true 07/07/20 23 Within the past 12 months, t [...] Visit [facility] [address] [place] [address] Nickolas Del Castillo, DO [address] [place] [address] Health Maintenance Due Date Last Done Comments [...] 06/02, 12/21/2020, Additional history exists Albumin/Creatinine Ratio 07/08/20222 021, 06/23/2020, 07/05/2019, Additional history exists Diabetic [...] 02/10/2015 LUNG CANCER SCREENING - USE SMARTSET 75257 Completed 07/30/2021, 07/20/2020, 07/17/2019, Additional history exists GARDASIL-HPV IMMUNIZATION SERIES Aged Out No longer eligible based on patient's age to complete this topic MENINGOCOCCAL (MENACTRA/MENVEO) Aged Out No longer eligible based on patient's age to complete this topic documented as of this encounter Medical Devices Implanted Type Area Die Sizer Device Identifier Shelf Expiration Date Model / Serial / Lot Lens Intraoc 21.0 - [id number] - [id number] Implanted:Qty: 1 on 12/27/2018 by Santiago Gill MD at OR [facility] Left: Eye [employer]OM[employer] 03/01/2023 [id number] / [id number] / [id number] Lens Intraoc 21.5 - [id number] - [id number] Implanted:Qty: 1 on 01/15/2019 by Santiago Gill MD at OR [facility] Right: Eye [employer]CH [employer] LOMB 08/01/2023 [id number] / [id number] / documented as of this encounter Visit Diagnoses Diagnosis Thrush- Primary Candidiasis of mouth History of 2019 novel coronavirus disease (COVID-19) COPD, group B, by GOLD 2017 classification (HCC) Type 2 diabetes mellitus with hemoglobin A1c goal of less than 8.0% ([facility]) documented in this encounter Advance Directives Healthcare Agents on File Name Relationship Healthcare Agent Relationshi p Communication Gene Shiner Spouse Health Care Repr esentative (appointed verbally by patient or by statute hierarchy) Care Teams Pattern Assembler Relationship Specialty Start Date End Date Renny Abdi MD [address] [place] [address] PCP - General Family Medicine 10/06/14 documented as of this encounter
--- OUTSIDE RECORDS SUMMARY | 2024-01-23 18:32 | External Medical Summary | Summary of Care ---
Author Name Unknown Organization [facility] Address [address] [place] [address] Phone [phone] Care Team Providers Care Double Backer Name Role Phone Renny Abdi MD Primary Care Provider + Reason for Visit * Reason Onset Date Comments Intermediate Visit 11/07/2023 Encounter Details Date Type Department Care Team (Latest Contact Info) Description 11/07/2023 6:30 AM EST Intermediate Visit [facility] [address] [place] [address] Kindra Pitts PA-C [address] [place] [address] COVID-19 virus infection*; Thrush; COPD, group B, by GOLD 2017 classification ([facility]); DM type 2 with diabetic peripheral neuropathy ([facility]) Allergies No known active allergiesdocumented as of this encounter (statuses as of 11/07/2023) Medications Medication Sig Dispensed Refills Start Date End Date Status Insulin Syringe-Needle U-100 (BD INSULIN SYR ULTRAFINE II) 31G X 5/16" 1 ML MISCIndications:Type 2 diabetes mellitus with hemoglobin A1c goal of less than 8.0% ([facility]),DM type 2 nursing care encounter ([facility]) use with insulin twice daily [address] 09/11/2018 Active Acetaminophen 325 MG Oral Tablet Take 1 Tablet by mouth every 6 hours as needed for Pain. 0 Active nystatin 372010 UNIT/GM creamIndications:Tin ea corporis Apply To affected [...] group B, by GOLD 2017 classification ([facility]) Inhale 1 Puff by mouth in the morning. 180 Each 3 03/20/2023 Active Albuterol Sulfate (2.5 MG/3ML) 0.083% Inhalation Nebulization Solution Inhale 1 Vial via nebulizer. As directed, if needed, for shortness of breath or wheezing 0 Active OneTouch Ultra In Vitro Strip (Glucose Blood)Indications:Ty pe 2 diabetes mellitus with hemoglobin A1c goal of less than 8.0% ([facility]) Use as directed 2 times daily [...] diabetes mellitus with peripheral vascular disease ([facility]) Take 1 Tablet by mouth at [...] as of this encounter (statuses as of 11/07/2023) Active Problems Problem Noted Date Diagnosed Date [...] classification 07/26 Overview: Noted on screening CT nursing home (current) use of insulin 05/16/2019 Type 2 diabetes mellitus with peripheral vascula r disease 05/16/2019 Elevated diaphragm 05/16/2019 History of colon polyps 05/09/2019 BPPV (benign paroxysmal positional vertigo), rig ht 04/28/2018 Coronary artery disease invo lving [place] coronary artery of [place] heart without angina pectoris 04/28/2018 Overactive bladder 12/12/2017 DM type 2 with diabetic peripheral neuropathy History of breast cancer 10/28/2016 Overview: S/p lumpectomy, XRT Arthritis of hand, degenerative 05/19/2015 Dyslipidemia, goal LDL below 100 10/06/2014 Nephrolithiasis 07/27/2014 Panic attacks 07/27/2014 Type 2 diabetes mellitus wit h hemoglobin A1c goal of less than 8.0% 05/28/2014 Overview: 05/10/14 a1c 9.4 @[facility]. documented as of this encounter (statuses as of 11/07/2023) Resolved Problems Problem Noted Date Diagnosed Date [...] 07/27/2014 016 Overview: 06/15 [facility] ER +sepss Blood cx neg D/c on omnicef. Well adult exam 05/28/2014 09/20/2023 Overview: 02/25/23 CTA chest-1cm scletotic T4 lesion BONE SCAN no uptake. Need eval fatty liver/ update EKG. [facility] did not have on file. 05/22 EEG 72h WNL. EMG--This electrodiagnostic study is suggestive of a mild right median neuropathy at the wrist (carpal tunnel syndrome). There is no convincing electrodiagnostic evidence of a large fiber polyneuropathy. There is no electrophysiological evidence of a myopathy. 04/18 [facility] cardiac cath moderate disease small vessels, not stentable. . +borderline stress echo. EF 55-60. Mild LVH. Gr byrd dys. 10/[address] 06/16 repeat mammo/US ordered 12/14 Dr Barragan. 2 tubular adenoma <1cm Daughter Jennifer Winkler 06/15 [facility] ER ?pyelo. +powell sens E Coli documented as of this encounter (statuses as of 11/07/2023) Immunizations Name Administration Dates Next Due Pneumococcal [...] 11/10/2023 9:20 AM EST Office Visit Family Practice [facility] [address] [place] [address] Renny Abdi MD [address] [place] [address] 01/23/2024 1:00 PM EDT Office Visit [facility] [address] [place] [address] Nickolas Del Castillo, [address] [place] [address] Health Maintenance Due Date Last Done Comments [...] 02/10/2015 LUNG CANCER SCREENING - USE SMARTSET [id number] Completed 07/30/2021, 07/20/2020, 07/17/2019, Additional history exists GARDASIL-HPV IMMUNIZATION SERIES Aged Out No longer eligible based on patient's age to complete this topic MENINGOCOCCAL (MENACTRA/MENVEO) Aged Out No longer eligible based on patient's age to complete this topic documented as of this encounter Medical Devices Implanted Type Area Kraft Mill Operator Device Identifier Shelf Expiration Date Model / Serial / Lot Lens Intraoc 21.0 - [id number] - [id number] Implanted:Qty: 1 on 12/27/2018 by Santiago Gill MD at OR [facility] Left: Eye [employer]USCH [employer] LOMB 03/01/2023 [id number] / [id number] / [id number] Lens Intraoc 21.5 - [id number] - [id number] Implanted:Qty: 1 on 01/15/2019 by Santiago Gill MD at OR [facility] Right: Eye BA[employer]CH [employer] LOMB 08/01/2023 [id number] / [id number] / documented as of this encounter Visit Diagnoses Diagnosis COVID-19 virus infection- Primary Thrush Candidiasis of mouth COPD, group B, by GOLD 2017 classification (HCC) DM type 2 with diabetic peripheral neuropathy (HCC) Type II or unspecified type diabetes mellitus with neurological manifestations, not stated as uncontrolled documented in this encounter Advance Directives Healthcare Agents on File Name Relationship Healthcare Agent Relationshi p Communication Gene Duncan Spouse Health Care Repr esentative (appointed verbally by patient or by statute hierarchy) Care Teams Double Backer Relationship Specialty Start Date End Date Renny Abdi MD [address] [place] [address] PCP - General Family Medicine 10/06/14 documented as of this encounter
--- OUTSIDE RECORDS SUMMARY | 2024-01-23 18:32 | External Medical Summary | Summary of Care ---
Author Name Unknown Organization [facility] Address [address] [place] [address] Phone [phone] Care Team Providers Care Automotive Light Mechanic Name Role Phone Renny Abdi MD Primary Care Provider + Reason for Visit * Reason Onset Date Comments Forms Request 10/31/2023 Encounter Details Date Type Department Care Team (Late st Contact Info) Description 10/31/2023 Telephone Family Practice [facility] [address] [place] [address] Renny Abdi MD [address] [place] [id number] Forms Request Allergies No known active allergiesdocumented as of this encounter (statuses as of 10/31/2023) Medications Medication Sig Dispensed Refills Start Date End Date Status Insulin Syringe-Needle U-100 (BD INSULIN SYR ULTRAFINE II) 31G X /16" 1 ML MISCIndications:Type 2 diabetes mellitus with hemoglobin A1c goal of less than 8.0% ([facility]),DM type 2 nursing care encounter ([facility]) use with insulin twice daily [address] 09/11/2018 Active Acetaminophen 325 MG Oral Tablet Take 1 Tablet by mouth every 6 hours as needed for Pain. 0 Active nystatin 996734 UNIT/GM creamIndications:Tin ea corporis Apply To affected area for two weeks twice daily 45 g 2 12/06/2019 Active Additional Information Patient taking differently: BID PRN, Apply To affected area for two weeks twice daily, Informant: At Discharge, Reported on 04/07/2023 [employer] Ultra Mini w/Device KitIndications:Type 2 diabetes mellitus with hemoglobin A1c goal of less than 8.0% ([facility]) Ck FS twice daily on insulin E [...] BEFORE BEDTIME. 180 Tablet 1 03/20/2023 Active [employer] Rik Alexander 33GIndications:Type 2 diabetes mellitus with hemoglobin A1c goal of less than 8.0% ([facility]) Ck FS daily E11.9 100 Each 10 03/20/2023 Active Fluticasone Propionate 50 MCG/ACT Nasal Suspension (Flonase)Indications :Chronic rhinitis USE 1 SPRAY NASALLY EVERY DAY 32 g 3 03/20/2023 Active Trelegy Ellipta 100-62.5-25 MCG/ACT Aerosol Powder Breath Activated (Fluticasone-Umeclid inium-Vilanterol)Ind ications:COPD, group B, by GOLD 2017 classification ([facility]) Inhale 1 Puff by mouth in the [...] as of this encounter (statuses as of 10/31/2023) Active Problems Problem Noted Date Diagnosed Date [...] classification 07/26 Overview: Noted on screening [facility] ([facility]) use of insulin 05/16/2019 Type 2 diabetes mellitus with peripheral vascula r disease 05/16/2019 Elevated diaphragm 05/16/2019 History of colon polyps 05/09/2019 BPPV (benign paroxysmal positional vertigo), rig ht 04/28/2018 Coronary artery disease invo lving [place] coronary artery of [place] heart without angina pectoris 04/28/2018 Overactive bladder 12/12/2017 DM type 2 with diabetic peripheral neuropathy History of breast cancer 10/28/2016 Overview: S/p lumpectomy, XRT Arthritis of hand, degenerative 05/19/2015 Dyslipidemia, goal LDL below 100 10/06/2014 Nephrolithiasis 07/27/2014 Panic attacks 07/27/2014 Type 2 diabetes mellitus wit h hemoglobin A1c goal of less than 8.0% 05/28/2014 Overview: 05/10/14 a1c 9.4 @[facility]. documented as of this encounter (statuses as of 10/31/2023) Resolved Problems Problem Noted Date Diagnosed Date [...] 12/24/201405/2019 Acute pyelonephritis 07/27/2014 016 Overview: 06/15 [facility] ER +sepss Blood cx neg D/c on omnicef. Well adult exam 05/28/2014 09/20/2023 Overview: 02/25/23 CTA chest-1cm scletotic T4 lesion BONE SCAN no uptake. Need eval fatty liver/ update EKG. [facility] did not have on file. 05/22 EEG 72h WNL. EMG--This electrodiagnostic study is suggestive of a mild right median neuropathy at the wrist (carpal tunnel syndrome). There is no convincing electrodiagnostic evidence of a large fiber polyneuropathy. There is no electrophysiological evidence of a myopathy. 04/18 [facility] cardiac cath moderate disease small vessels, not stentable. . +borderline stress echo. EF 55-60. Mild LVH. Gr byrd dys. 10/[address] 06/16 repeat mammo/US ordered 12/14 Dr Barragan. 2 tubular adenoma <1cm Daughter Jennifer Winkler 06/15 [facility] ER ?pyelo. +powell sens E Coli documented as of this encounter (statuses as of 10/31/2023) Immunizations Name Administration Dates Next Due Pneumococcal [...] encounter Miscellaneous Notes * Telephone Encounter - Erica Castañeda LPN - 10/31/2023 2:01 PM EST Form completed and faxed back * Telephone Encounter - Erica Castañeda LPN - 10/31/2023 8:09 AM EST Received physicians certification form via fax for patient for waiver services. Form placed in PCP mailbox for signature. Will fax once completed documented in this encounter Plan of Treatment Upcoming Encounters Date Type Department Care Team (Late st Contact Info) Description 11/10/2023 9:20 AM EST Office Visit Family Practice [facility] [address] [place] [address] Renny Abdi MD [address] [place] [address] 01/23/2024 1:00 PM EDT Office Visit Neurology [facility] [address] [facility] [place] [address] Nickolas Del Castillo, [address] [facility] [place] [address] Health Maintenance Due Date Last Done Comments [...] PAST YEAR FOR COPD 07/11/2024 07/11/2023 GFR 09/27/2024 09/27/2023, 09/02, 08/23/2023, Additional history exists Alpha-1 Antitrypsin Completed 03/12/2020 Pneumococcal Vaccine: 65+ Years Completed 07/08/2021, 04/26/2016, 02/10/2015 LUNG CANCER SCREENING - USE SMARTSET 28232 Completed 07/30/2021, 07/20/2020, 07/17/2019, Additional history exists GARDASIL-HPV IMMUNIZATION SERIES Aged Out No longer eligible based on patient's age to complete this topic MENINGOCOCCAL (MENACTRA/MENVEO) Aged Out No longer eligible based on patient's age to complete this topic documented as of this encounter Medical Devices Implanted Type Area Account Manager Relief Device Identifier Shelf Expiration Date Model / Serial / Lot Lens Intraoc 21.0 - [id number] - [id number] Implanted:Qty: 1 on 12/27/2018 by Santiago Gill MD at OR [facility] Left: Eye [employer]CH [employer] LOMB 03/01/2023 [id number] / [id number] / [id number] Lens Intraoc 21.5 - [id number] - [id number] Implanted:Qty: 1 on 01/15/2019 by Santiago Gill MD at OR [facility] Right: Eye BAUSCH [employer] LOMB 08/01/2023 [id number] / [id number] / documented as of this encounter Advance Directives Healthcare Agents on File Name Relationship Healthcare Agent Relationshi p Communication Gene Sana Spouse Health Care Repr esentative (appointed verbally by patient or by statute hierarchy) Care Teams Automotive Light Mechanic Relationship Specialty Start Date End Date Renny Abdi MD [address] [place] [address] PCP - General Family Medicine 10/06/14 documented as of this encounter
--- OUTSIDE RECORDS SUMMARY | 2024-01-23 18:32 | External Medical Summary | Summary of Care ---
Author Name Unknown Organization [facility] Address [address] [place] [address] Phone [phone] Care Team Providers Care Leather Stamper Name Role Phone Renny Abdi MD Primary Care Provider + Encounter Details Date Type Department Care Team (Late st Contact Info) Description 10/31/2023 Orders Only Lab Mobile Phlebotomy [facility] [address] [place] [address] Noah Montaño MD [address] [place] [address] [place] [address] Edema* Allergies No known active allergiesdocumented as of this encounter (statuses as of 10/31/2023) Medications Medication Sig Dispensed Refills Start Date End Date Status Insulin Syringe-Needle U-100 (BD INSULIN SYR ULTRAFINE II) 31G X 5/16" 1 ML MISCIndications:Type 2 diabetes mellitus with hemoglobin A1c goal of less than 8.0% ([facility]),DM type 2 nursing care encounter ([facility]) use with insulin twice daily [address] 09/11/2018 Active Acetaminophen 325 MG Oral Tablet Take 1 Tablet by mouth every 6 hours as needed for Pain. 0 Active nystatin 401927 UNIT/GM creamIndications:Tin ea corporis Apply To affected area for two weeks twice daily 45 g 2 12/06/2019 Active Additional Information Patient taking differently: BID PRN, Apply To affected area for two weeks twice daily, Informant: At Discharge, Reported on 04/07/2023 OneTouch Ultra Mini w/Device KitIndications:Type 2 diabetes mellitus with hemoglobin A1c goal of less than 8.0% ([facility]) Ck FS twice daily on insulin E [...] BEFORE BEDTIME. 180 Tablet 1 03/20/2023 Active ViaWest Rik Lancets 33GIndications:Type 2 diabetes mellitus with hemoglobin A1c goal of less than 8.0% ([facility]) Ck FS daily E11.9 100 Each 10 03/20/2023 Active Fluticasone Propionate 50 MCG/ACT Nasal Suspension (Flonase)Indications :Chronic rhinitis USE 1 SPRAY NASALLY EVERY DAY 32 g 3 03/20/2023 Active Trelegy Ellipta 100-62.5-25 MCG/ACT Aerosol Powder Breath Activated (Fluticasone-Umeclid inium-Vilanterol)Ind ications:COPD, group B, by GOLD 2017 classification ([facility]) Inhale 1 Puff by mouth in the [...] ht 04/28/2018 Coronary artery disease invo lving [place] coronary artery of [place] heart without angina pectoris 04/28/2018 Overactive bladder [...] [facility] did not have on file. 8/21 EEG 72h WNL. EMG--This electrodiagnostic study is [...] Team (Late st Contact Info) Description 10/31/2023 8:00 AM EST Laboratory Lab Mobile Phlebotomy [facility] [address] [facility], [place] [address] [facility] [address] [facility] [place] [address] Arrived 11/10/2023 9:20 AM EST Office Visit Family Practice [facility] [address] [place] [address] Renny Abdi MD [address] [place] [address] 01/23/2024 1:00 PM EDT Office Visit Neurology [facility] [address] [place] [address] Nickolas Del Castillo, [address] [place] [address] Scheduled Orders Name Type Priority Associated Diagnoses Orde r Schedule BASIC METABOLIC PANEL Lab Routine Edema Expected: 10/31/2023, Expires: 10/31/2024 CBC WITH WBC DIFFERENTIAL Lab Routine Edema Expected: 10/31/2023, Expires: 10/31/2024 Health Maintenance Due Date Last Done Comments [...] FOR COPD 07/11/2024 07/11/2023 GFR 09/27/2024 09/27/2023, 12/, 08/23/2023, Additional history exists Alpha-1 Antitrypsin Completed 03/12/2020 Pneumococcal Vaccine: 65+ Years Completed 07/08/2021, 04/26/2016, 02/10/2015 LUNG CANCER SCREENING - USE SMARTSET 65601 Completed 07/30/2021, 07/20/2020, 07/17/2019, Additional history exists GARDASIL-HPV IMMUNIZATION SERIES Aged Out No longer eligible based on patient's age to complete this topic MENINGOCOCCAL (MENACTRA/MENVEO) Aged Out No longer eligible based on patient's age to complete this topic documented as of this encounter Medical Devices Implanted Type Area Parasitologist Device Identifier Shelf Expiration Date Model / Serial / Lot Lens Intraoc 21.0 - [id number] - [id number] Implanted:Qty: 1 on 12/27/2018 by Santiago Gill MD at OR [facility] Left: Eye [employer]USCH [employer] LOMB 03/01/2023 [id number] / [id number] / [id number] Lens Intraoc 21.5 - [id number] - [id number] Implanted:Qty: 1 on 01/15/2019 by Santiago Gill MD at OR [facility] Right: Eye BAUSCH & LOMB 08/01/2023 [id number] / [id number] / documented as of this encounter Visit Diagnoses Diagnosis Edema- Primary documented in this encounter Advance Directives Healthcare Agents on File Name Relationship Healthcare Agent Relationshi p Communication Gene Sana Spouse Health Care Repr esentative (appointed verbally by patient or by statute hierarchy) Care Teams Leather Stamper Relationship Specialty Start Date End Date Renny Abdi MD [address] [place] [address] PCP - General Family Medicine 10/06/14 documented as of this encounter
--- OUTSIDE RECORDS SUMMARY | 2024-01-23 18:32 | External Medical Summary ---
Author Name Unknown Address Unknown Organization K01:[facility] [place] [address] [place] [address] Laboratory Report Ordering Provider Test Date Status MELISSA ATKINS 10/31/2023 06:35:00 Final Observation Date Value Abnormality Reference (Units ) Status SYNC LEUKOCYTES IN BLOOD BY AUTOMATED COUNT 10/31/2023 06:35:00 6.34 4.00-10.80 (K/uL) Final Segs 10/31/2023 06:35:00 59.6 40.0-75.0 (%) Final Lymphs % 10/31/2023 06:35:00 25.7 18.0-42.0 (%) Final Monos 10/31/2023 06:35:00 10.3 1.0-11.0 (%) Final Eosinophils 10/31/2023 06:35:00 2.2 0.0-6.0 (%) Final Basos 10/31/2023 06:35:00 0.6 0.0-2.0 (%) Final Immature Granulocyte, Percent 10/31/2023 06:35:00 1.6 0.0-2.0 (%) Final Absolute Segs 10/31/2023 06:35:00 3.78 1.80-7.70 (K/uL) Final Lymphs, absolute 10/31/2023 06:35:00 1.63 1.00-4.80 (K/ul) Final Monos, Abs 10/31/2023 06:35:00 0.65 0.00-1.10 (K/uL) Final Eos, Abs 10/31/2023 06:35:00 0.14 0.00-0.70 (K/uL) Final Basos, Abs 10/31/2023 06:35:00 0.04 0.00-0.20 (K/uL) Final Immature Granulocytes, Number 10/31/2023 06:35:00 0.10 0.00-0.20 (K/uL) Final Performing Location [facility] [address] [facility] [address]
--- OUTSIDE RECORDS SUMMARY | 2024-01-23 18:32 | External Medical Summary | Summary of Care ---
Author Name Unknown Organization [facility] Address [address] [place] [address] Phone [phone] Care Team Providers Care [employer] Teacher Name Role Phone Renny Abdi MD Primary Care Provider + Reason for Visit * Reason Comments Outpatient Testing Encounter Details Date Type Department Care Team (Late st Contact Info) Description 10/31/2023 8:20 AM EST Laboratory Laboratory [address] [place] [phone] , Specimen Drop Off [address] [place] [address] Edema Allergies No known active allergiesdocumented as of this encounter (statuses as of 10/31/2023) Medications Medication Sig Dispensed Refills Start Date End Date Status Insulin Syringe-Needle U-100 (BD INSULIN SYR ULTRAFINE II) 31G X 02/14" 1 ML MISCIndications:Type 2 diabetes mellitus with hemoglobin A1c goal of less than 8.0% ([facility]),DM type 2 nursing care encounter ([facility]) use with insulin twice daily [address] 09/11/2018 Active Acetaminophen 325 MG Oral Tablet Take 1 Tablet by mouth every 6 hours as needed for Pain. 0 Active nystatin 238347 UNIT/GM creamIndications:Tin ea corporis Apply To affected area for two weeks twice daily 45 g 2 12/06/2019 Active Additional Information Patient taking differently: BID PRN, Apply To affected area for two weeks twice daily, Informant: At Discharge, Reported on 04/07/2023 [employer] Ultra Mini w/Device KitIndications:Type 2 diabetes mellitus with hemoglobin A1c goal of less than 8.0% ([facility]) Ck FS twice daily on [...] BEFORE BEDTIME. 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 05/16/2019 Type 2 diabetes mellitus with peripheral vascula r disease 05/16/2019 Elevated diaphragm 05/16/2019 History of colon polyps 05/09/2019 BPPV (benign paroxysmal positional vertigo), rig ht 04/28/2018 Coronary artery disease invo lving [place] coronary artery of [place] heart without angina pectoris 04/28/2018 Overactive bladder 12/12/2017 DM type 2 with diabetic peripheral neuropathy History of breast cancer 10/28/2016 Overview: S/p lumpectomy, XRT Arthritis of hand, degenerative 05/19/2015 Dyslipidemia, goal LDL below 100 10/06/2014 Nephrolithiasis 07/27/2014 Panic attacks 07/27/2014 Type 2 diabetes mellitus wit h hemoglobin A1c goal of less than 8.0% 05/28/2014 Overview: 05/10/14 a1c 9.4 @[facility]. documented as of this encounter [...] Acute pyelonephritis 07/27/2014 016 Overview: 06/15 [facility] ER +sepss Blood cx neg D/c on omnicef. Well adult exam 05/28/2014 09/20/2023 Overview: 02/25/23 CTA chest-1cm scletotic T4 lesion BONE SCAN no uptake. Need eval fatty liver/ update EKG. [facility] did not have on file. 05/22 EEG 72h WNL. EMG--This electrodiagnostic study is suggestive of a mild right median neuropathy at the wrist (carpal tunnel syndrome). There is no convincing electrodiagnostic evidence of a large fiber polyneuropathy. There is no electrophysiological evidence of a myopathy. 04/18 [facility] cardiac cath moderate disease small vessels, not stentable. . +borderline stress echo. EF 55-60. Mild LVH. Gr byrd dys. 10/[address] 06/16 repeat mammo/US ordered 12/14 Dr Barragan. 2 tubular adenoma <1cm Daughter Jennifer Winkler 06/15 [facility] ER ?pyelo. +powell sens E [...] Description 11/10/2023 9:20 AM EST Office Visit [facility] [address] [place] [address] Renny Abdi MD [address] [place] [address] 01/23/2024 1:00 PM EDT Office Visit Neurology [facility] [address] [place] [address] Nickolas Del Castillo, [address] [place] [address] Pending Results Name Type Priority Associated Diagnoses Date /Time BASIC METABOLIC PANEL Lab Routine Edema 10/31/2023 6:35 AM EST CBC WITH WBC DIFFERENTIAL Lab Routine Edema 10/31/2023 6:35 AM EST CBC Lab Routine Edema 10/31/2023 6:35 AM EST DIFFERENTIAL, AUTOMATED Lab Routine Edema 10/31/2023 6:35 AM EST Health Maintenance Due Date Last Done Comments COVID-19 Vaccine (#1) 1950 Hepatitis B (1 of 3 - Risk 3-dose series) 2011 Zoster Vaccines (2 of 3) 11/06/2015 09/11/2015 Mammogram 06/07/2018 06/07/2017, 0911/2015, 06/23/2015, Additional history exists Depression Screening 04/10/2019 [...] 02/10/2015 LUNG CANCER SCREENING - USE SMARTSET 34669 Completed 07/30/2021, 07/20/2020, 07/17/2019, Additional history exists GARDASIL-HPV IMMUNIZATION SERIES Aged Out No longer eligible based on patient's age to complete this topic MENINGOCOCCAL (MENACTRA/MENVEO) Aged Out No longer eligible based on patient's age to complete this topic documented as of this encounter Medical Devices Implanted Type Area Structural Steel Erector Device Identifier Shelf Expiration Date Model / Serial / Lot Lens Intraoc 21.0 - [id number] - [id number] Implanted:Qty: 1 on 12/27/2018 by Santiago Gill MD at OR [facility] Left: Eye BAUSCH & LOMB 03/01/2023 [id number] / [id number] / [id number] Lens Intraoc 21.5 - [id number] - [id number] Implanted:Qty: 1 on 01/15/2019 by Santiago Gill MD at OR [facility] Right: Eye BAUSCH & LOMB 08/01/2023 [id number] / [id number] / documented as of this encounter Visit Diagnoses Diagnosis Edema documented in this encounter Advance Directives Healthcare Agents on File Name Relationship Healthcare Agent Relationshi p Communication Gene Weskan Spouse Health Care Repr esentative (appointed verbally by patient or by statute hierarchy) Care Teams Junior [employer] Teacher Relationship Specialty Start Date End Date Renny Abdi MD [address] [place] [address] PCP - General Family Medicine 10/06/14 documented as of this encounter
--- OUTSIDE RECORDS SUMMARY | 2024-01-23 18:32 | External Medical Summary ---
Author Name Unknown Address Unknown Organization K01:LABORATORY [facility] - [facility] [address] [facility] [address] Laboratory Report Ordering Provider Test Date Status MELISSA ATKINS 10/31/2023 06:35:00 Final Observation Date Value Abnormality Reference (Units ) Status WBC, Total 10/31/2023 06:35:00 6.34 4.00-10.80 (K/uL) Final RBC 10/31/2023 06:35:00 4.91 3.85-5.15 (M/uL) Final Hemoglobin 10/31/2023 06:35:00 12.7 12.0-15.3 (g/dL) Final HCT 10/31/2023 06:35:00 40.7 36.0-45.2 (%) Final MCV 10/31/2023 06:35:00 82.9 81.5-97.5 (fL) Final MCH 10/31/2023 06:35:00 25.9 27.0-34.0 (pg) Final MCHC 10/31/2023 06:35:00 31.2 32.0-36.0 (g/dL) Final RDW 10/31/2023 06:35:00 17.6 11.5-15.5 (%) Final Platelets 10/31/2023 06:35:00 203 140-400 (K/uL) Final MPV 10/31/2023 06:35:00 9.6 6.6-11.1 (fL) Final Nucleated erythrocytes/100 leukocytes [Ratio] in Blood by Automated count 10/31/2023 06:35:00 0 <=0 (/100 WBCs) Final Performing Location LABORATORY [facility] - [address] [place] [address]
--- OUTSIDE RECORDS SUMMARY | 2024-01-23 18:32 | External Medical Summary | Summary of Care ---
Author Name Unknown Organization [facility] Address [address] [place] [address] Phone [phone] Care Team Providers Care Surgery Technician Name Role Phone Renny Abdi MD Primary Care Provider + Reason for Visit * Reason Onset Date Comments Medication Refill 11/09/2023 Encounter Details Date Type Department Care Team (Late st Contact Info) Description 11/09/2023 Refill [facility] [address] [place] [address] Kindra Pitts PA-C [address] [place], [place] [id number] Allergies No known active allergiesdocumented as of this encounter (statuses as of 11/09/2023) Medications Medication Sig Dispensed Refills Start Date End Date Status Insulin Syringe-Needle U-100 (BD INSULIN SYR ULTRAFINE II) 31G X 5/16" 1 ML MISCIndications:Typ e 2 diabetes mellitus with hemoglobin A1c goal of less than 8.0% ([facility]),DM type 2 nursing care encounter ([facility]) use with insulin twice daily [address] 8 Active Acetaminophen 325 MG Oral Tablet Take 1 Tablet by mouth every 6 hours as needed for Pain. 0 Active nystatin 675538 UNIT/GM creamIndications:Ti drew corporis Apply To affected area for two weeks twice daily 45 g 2 0 Active Additional Information Patient taking differently: BID PRN, Apply To affected area for two weeks twice daily, Informant: At Discharge, Reported on 04/07/2023 spotflux Ultra Mini w/Device KitIndications:Type 2 diabetes mellitus with hemoglobin A1c goal of less than 8.0% ([facility]) Ck FS twice daily on insulin E 11.9 1 Kit 0 1 Active Lactobacillus Oral Tablet Take 1 Tablet by mouth in the morning and 1 Tablet before bedtime. 60 Tablet 1 3 Active Furosemide 20 MG Oral Tablet (Lasix)Indications: Peripheral edema TAKE 1 TABLET DAILY NEEDED FOR EDEMA/FLUID ACCUMULATION OR WEIGHT GAIN 90 Tablet 1 3 Active Cetirizine HCl 10 [...] 0 3 Active B-12 100 MCG Oral TabletIndications:B 12 deficiency 1 tablet daily 90 Tablet 1 3 Active Vitamin D 25 MCG (1000 UT) Oral TabletIndications:V itamin D deficiency 1 tablet daily 90 Tablet 1 3 Active Divalproex Sodium 500 MG Oral Tablet Delayed Release (Depakote DR)Indications:Myoc lonic jerking TAKE 1 TABLET IN THE MORNING AND 1 TABLET BEFORE BEDTIME. 180 Tablet 3 Active [employer]en[employer]onhitesh Rik Alexander 33GIndications:Type 2 diabetes mellitus with hemoglobin A1c goal of less than 8.0% ([facility]) Ck FS daily E11.9 100 Each 10 3 Active Fluticasone Propionate 50 MCG/ACT Nasal Suspension (Flonase)Indication s:Chronic rhinitis USE 1 SPRAY NASALLY EVERY DAY 32 g 3 3 Active Trelegy Ellipta 100-62.5-25 MCG/ACT Aerosol Powder Breath Activated (Fluticasone-Umecli dinium-Vilanterol)I ndications:COPD, group B, by GOLD 2017 classification ([facility]) Inhale 1 Puff by mouth in [...] E11.9 Hx hypo/hyperglycemi a. 200 Strip 3 3 Active rOPINIRole HCl 1 MG Oral Tablet (Requip)Indications :RLS (restless legs syndrome) Take 1 Tablet by mouth at bedtime. 90 Tablet 2 3 Active Ketoconazole 2 % External CreamIndications:Ti drew [...] 3 Active Gabapentin 300 MG Oral Capsule (Neurontin)Indicati [...] by mouth at bedtime. 0 3 Active Senna-Docusate Sodium 8.6-50 MG Oral Tablet Take 1 Tablet by mouth in the morning and 1 Tablet before bedtime. 0 3 Active Aspirin 81 MG Oral Tablet Delayed Release Take 1 Tablet by mouth in the morning. 0 3 Active Potassium Chloride 20 MEQ Oral Packet (Klor-Con) Take 40 mEq by mouth in the morning. 0 3 Active oxyCODONE HCl 5 MG Oral Tablet (Oxy IR) Take 1 Tablet by mouth every 6 hours as needed for Pain, Severe or Pain, Moderate. 60 Tablet 0 4 Active oxyCODONE HCl 5 MG Oral Tablet (Oxy IR) Take 1 Tablet by mouth every 6 hours as needed for Pain, Severe or Pain, Moderate. 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 insulin 05/16/2019 Type 2 diabetes mellitus with peripheral vascula r disease 05/16/2019 Elevated diaphragm 05/16/2019 History of colon polyps 05/09/2019 BPPV (benign paroxysmal positional vertigo), rig ht 04/28/2018 Coronary artery disease invo lving [place] coronary artery of [place] heart without angina pectoris 04/28/2018 Overactive bladder 12/12/2017 DM type 2 with diabetic peripheral neuropathy History of breast cancer 10/28/2016 Overview: S/p lumpectomy, XRT Arthritis of hand, degenerative 05/19/2015 Dyslipidemia, goal LDL below 100 10/06/2014 Nephrolithiasis 07/27/2014 Panic attacks 07/27/2014 Type 2 diabetes mellitus wit h hemoglobin A1c goal of less than 8.0% 05/28/2014 Overview: 05/10/14 a1c 9.4 @[facility]. documented as of this encounter (statuses as of 11/09/2023) Resolved Problems Problem Noted Date Diagnosed Date [...] 12/24/201405/2019 Acute pyelonephritis 07/27/2014 016 Overview: 06/15 [facility] ER +sepss Blood cx neg D/c on omnicef. Well adult exam 05/28/2014 09/20/2023 Overview: 02/25/23 CTA chest-1cm scletotic T4 lesion BONE SCAN no uptake. Need eval fatty liver/ update EKG. [facility] did not have on file. 05/22 EEG 72h WNL. EMG--This electrodiagnostic study is suggestive of a mild right median neuropathy at the wrist (carpal tunnel syndrome). There is no convincing electrodiagnostic evidence of a large fiber polyneuropathy. There is no electrophysiological evidence of a myopathy. 04/18 [facility] cardiac cath moderate disease small vessels, not stentable. . +borderline stress echo. EF 55-60. Mild LVH. Gr byrd dys. 10/[address] 06/16 repeat mammo/US ordered 12/14 Dr Barragan. 2 tubular adenoma <1cm Daughter Jennifer Winkler 06/15 [facility] ER ?pyelo. +powell sens E Coli documented as of this encounter (statuses as of 11/09/2023) Immunizations Name Administration Dates Next Due Pneumococcal [...] encounter Miscellaneous Notes * Telephone Encounter - Kindra Pitts PA-C - 11/09/2023 10:31 AM EST REFILL OXYCODONE 5MG Q SIX HOURS PRN OD TO SEVERE PAIN #60 R0 SENT ELECTRONICALLY TO [facility] documented in this encounter Plan of Treatment Upcoming Encounters Date Type Department Care Team (Late st Contact Info) Description 01/23/2024 1:00 PM EDT Office Visit Neurology [facility] [address] [place] [address] Nickolas [place], DO [address] [facility] [place] [address] Health Maintenance Due Date Last Done Comments [...] 02/10/2015 LUNG CANCER SCREENING - USE SMARTSET 61740 Completed 07/30/2021, 07/20/2020, 07/17/2019, Additional history exists GARDASIL-HPV IMMUNIZATION SERIES Aged Out No longer eligible based on patient's age to complete this topic MENINGOCOCCAL (MENACTRA/MENVEO) Aged Out No longer eligible based on patient's age to complete this topic documented as of this encounter Medical Devices Implanted Type Area Nuclear Medical Technologist Device Identifier Shelf Expiration Date Model / Serial / Lot Lens Intraoc 21.0 - [id number] - [id number] Implanted:Qty: 1 on 12/27/2018 by Santiago Gill MD at OR [facility] Left: Eye BAUSCH & LOMB 03/01/2023 [id number] / [id number] / [id number] Lens Intraoc 21.5 - [id number] - [id number] Implanted:Qty: 1 on 01/15/2019 by Santiago Gill MD at OR [facility] Right: Eye BAUSCH & LOMB 08/01/2023 [id number] / [id number] / documented as of this encounter Advance Directives Healthcare Agents on File Name Relationship Healthcare Agent Relationshi p Communication Gene Sana Spouse Health Care Repr esentative (appointed verbally by patient or by statute hierarchy) Care Teams Surgery Technician Relationship Specialty Start Date End Date Renny Abdi MD [address] [place] [address] PCP - General Family Medicine 10/06/14 documented as of this encounter
--- OUTSIDE RECORDS SUMMARY | 2024-01-23 18:32 | External Medical Summary ---
Author Name Unknown Address Unknown Organization K01:[facility]ORY [facility] - [facility] [address] [place] [address] Laboratory Report Ordering Provider Test Date Status MELISSA ATKINS 10/31/2023 06:35:00 Final Observation Date Value Abnormality Reference (Units ) Status BUN 10/31/2023 06:35:00 11 6-20 (mg/dL) Final Creatinine 10/31/2023 06:35:00 0.6 0.5-1.0 (mg/dL) Final Glomerular filtration rate/1.73 sq M.predicted [Volume Rate/Area] in Serum, Plasma or Blood by Creatinine-based formula (CKD-EPI) 10/31/2023 06:35:00 >90 >=60 (mL/min) Final eGFR is calculated based on the CKD-EPI 2020 equation SODIUM 10/31/2023 06:35:00 139 135-146 (m mol/L) Final Potassium 10/31/2023 06:35:00 3.8 3.5-5.1 (m mol/L) Final Cl 10/31/2023 06:35:00 99 98-107 (mm ol/L) Final CO2 10/31/2023 06:35:00 30 22-32 (mmo l/L) Final Anion gap 10/31/2023 06:35:00 10 7-15 (mmol /L) Final Glucose 10/31/2023 06:35:00 82 70-120 (mg /dL) Final Calcium 10/31/2023 06:35:00 8.5 8.4-10.2 ( mg/dL) Final Performing Location LAB[facility]ORY [facility] - [facility] [place] [address] [place] [address]
--- OUTSIDE RECORDS SUMMARY | 2024-01-23 18:33 | External Medical Summary | Summary of Care ---
Author Name Unknown Organization [facility] Address [address] [place] [address] Phone [phone] Care Team Providers Care Back Tacker Name Role Phone Renny Abdi MD Primary Care Provider + Reason for Visit * Reason Onset Date Comments Complicated Acute Visit 10/30/2023 Encounter Details Date Type Department Care Team (Latest Contact Info) Description 10/30/2023 12:30 PM EST Correction Visit [facility] [address] [place] [address] Kindra Pitts PA-C [address] [place] [address] COVID-19 virus infection*; Malaise and fatigue; COPD, group B, by GOLD 2017 classification ([facility]); Coronary artery disease involving qagan tayagungin coronary artery of qagan tayagungin heart without angina pectoris; 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[facility]); Type 2 diabetes mellitus with hemoglobin A1c goal of less than 8.0% ([facility]) Allergies No known active allergiesdocumented as of this encounter (statuses as of 10/30/2023) Medications Medication Sig Dispensed Refills Start Date [...] as needed for Pain. 0 Active nystatin 789296 UNIT/GM creamIndications:Tin ea corporis Apply To affected area for two weeks twice daily 45 g 2 12/06/2019 Active Additional Information Patient taking differently: BID PRN, Apply To affected area for two weeks twice daily, Informant: At Discharge, Reported on 04/07/2023 Oligomerix Mini w/Device KitIndications:Type 2 diabetes mellitus with [...] BEFORE BEDTIME. 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 05/16/2019 Type 2 diabetes mellitus with peripheral vascula r disease 05/16/2019 Elevated diaphragm 05/16/2019 History of colon polyps 05/09/2019 BPPV (benign paroxysmal positional vertigo), rig ht 04/28/2018 Coronary artery disease invo lving qagan tayagungin coronary artery of qagan tayagungin heart without angina pectoris 04/28/2018 Overactive bladder [...] as of this encounter (statuses as of 10/30/2023) Resolved Problems Problem Noted Date Diagnosed Date [...] as of this encounter (statuses as of 10/30/2023) Immunizations Name Administration Dates Next Due Pneumococcal [...] Progress Notes * Kindra Pitts PA-C - 10/30/2023 2:52 PM EST Name: Criselda Patrick Date of :1950 TRANSITION EVENT: Type: Complicated acute visit Date: October 30 Code Status: Full Code This note pertains to care provided at [facility]. Please see facility medical record for original note. This note is not to be edited or addended in [employer]. Editing or addending needs to occur in the facilities medical record. Subjective: Criselda Patrick is a 73 year old female. Patient being seen for positive Covid 19 testing Chief Complaint Patient presents with Complicated Acute Visit HPI: I was asked to assess pt for symptoms of chills, body aches, cough, chest congestion, fever, and weakness which began over the weekend. Other vital signs stable. No hypoxemia noted. No diarrhea.Poor oral intake over past two days. Voiding just several times daily. Pt tested positive for Covid19 infection over the weekend. After discussion with pt and , pt was begun on Paxlovid BID times 5 days. Pt continues to feel weak and somnolent but she is conversant with me this afternoon. No chest pains, palpitations, nausea or vomiting. CBC Results: Results for orders placed or performed in visit on 09/20/23 CBC Result Value Ref Range WBC 8.41 4.00 - 10.80 K/uL RBC 4.71 3.85 - 5.15 M/uL HGB 12.3 12.0 - 15.3 g/dL HCT 38.3 36.0 - 45.2 % MCV 81.3 81.5 - 97.5 fL MCH 26.1 27.0 - 34.0 pg MCHC 32.1 32.0 - 36.0 g/dL RDW 16.3 11.5 - 15.5 % PLT 211 140 - 400 K/uL MPV 9.6 6.6 - 11.1 fL Hemoglobin Results: Lab Results Component Value Date/Time HGB - [facility] 12.3 09/20/2023 05:29 AM HGB - [facility] 12.9 08/23/2023 05:29 AM HGB - [facility] 13.3 03/10/2023 07:30 AM Basic Panel Results: Results for orders placed or performed in visit on 09/27/23 BASIC METABOLIC PANEL Result Value Ref Range BUN 8 6 - 20 mg/dL Creatinine 0.6 0.5 - 1.0 mg/dL Estimated Glomerular Filtration Rate >90 >=60 mL/min Sodium 139 135 - 146 mmol/L Potassium 3.6 3.5 - 5.1 mmol/L Chloride 99 98 - 107 mmol/L CO2 29 22 - 32 mmol/L Anion Gap 11 7 - 15 mmol/L Glucose 75 70 - 120 mg/dL Calcium 8.2 (L) 8.4 - 10.2 mg/dL Creatinine Results: Lab Results Component Value Date/Time CREATININE - [facility] 0.6 09/27/2023 05:44 AM CREATININE - [facility] 0.6 09/20/2023 05:29 AM CREATININE - [facility] 0.8 08/23/2023 05:29 AM CREATININE - [facility] 0.7 06/23/2020 [...] Results Component Value Date/Time POTASSIUM - [facility] 3.6 09/27/2023 05:44 AM POTASSIUM - [facility] 3.7 09/20/2023 05:29 AM POTASSIUM - [facility] 3.9 08/23/2023 05:29 AM POTASSIUM - [facility] 4.4 06/23/2020 09:38 AM POTASSIUM - [facility] 4.8 12/06/2019 10:27 AM POTASSIUM - [facility] 4.8 07/05/2019 08:37 AM POTASSIUM-[facility] 140 03/28/2023 12:00 AM POTASSIUM-[facility] 3.9 04/20/2018 12:00 AM POTASSIUM-[facility] 3.8 05/09/2014 12:00 AM Sodium Results: Lab Results Component Value Date/Time SODIUM - [facility] 139 09/27/2023 05:44 AM SODIUM - [facility] 139 09/20/2023 05:29 AM SODIUM - [facility] 138 08/23/2023 05:29 AM SODIUM - [facility] 141 06/23/2020 09:38 AM SODIUM - [facility] 141 12/06/2019 10:27 AM SODIUM - [facility] 139 07/05/2019 08:37 AM .TSH Results: Lab Results Component Value Date/Time TSH - [facility] 5.16 (H) 09/20/2023 05:29 AM TSH - [facility] 2.33 06/01/2015 10:56 AM Patient Active Problem List Diagnosis Code [...] vertigo), right H81.11 Coronary artery disease involving qagan tayagungin coronary artery of qagan tayagungin heart without angina pectoris I25.10 History of colon polyps Z86.010 correction (current) use of insulin ([facility] [...] Slow transit constipation K59.01 Venous insufficiency I87.2 Past Medical History: Diagnosis Date Acute pyelonephritis 07/27/201406/15 [facility] ER Arthritis of hand, degenerative 05/19/2015 BPPV (benign paroxysmal positional vertigo), right 04/28/2018 Coronary artery disease involving qagan tayagungin coronary artery of qagan tayagungin heart without angina pectoris 04/28/2018 DM type [...] ONLY) Right 1997 lumpectomy right breast cancer OR ARTHRP KNE CONDYLE&PLATU MEDIAL&LAT COMPARTMENTS Left 07/28/2023 TKA left, Dr Taylor [facility] REMOVE CATARACT, INSERT LENS PROSTH Left 12/27/2018 left EXTRACAPSULAR CATARACT REMOVAL WITH INTRAOCULAR LENS performed by Santiago Gill MD at OR [facility] REMOVE CATARACT, INSERT LENS PROSTH Right 01/15/2019 right EXTRACAPSULAR CATARACT REMOVAL WITH INTRAOCULAR LENS performed by Santiago Gill MD at OR [facility] Family History Problem Relation Age of [...] Not on file Occupational History 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 Review of Systems: Constitutional ROS: No change in weight, + weakness, + fatigue and No fevers, sweats, or chills Nose ROS: No nasal stuffiness and No significant epistaxis Mouth/Throat ROS: No thrush or No sore throat Neck ROS: No lumps or masses, No swollen glands, No recent swelling in thyroid area and No significant pain in neck Pulmonary ROS:see HPI Cardiovascular ROS: No chest pain, No shortness of breath, No edema, No palpitations and No syncope Gastrointestinal ROS: No abdominal pain, No change in bowel habits, No significant change in appetite, No nausea, vomiting, diarrhea, or constipation and No dysphagia Musculoskeletal/Extremities ROS: DJD Skin/Integumentary ROS: No rash and No itching Neurologic ROS: No headaches and + seizures Psychiatric ROS: No depression, No anxiety and No psychosis Sleep: No sleep disorders OBJECTIVE: PHYSICALEXAM: I reviewed the most recent facilities vitals. General: somnolent and fatigued but conversant with me, mild distress, well nourished and well developed Eye Exam: Conjunctiva are pink and non-injected, sclera clear Nose: no mucosal erythema, no mucosal edema, no purulent discharge Oropharynx: no exudate, no erythema, lips, buccal mucosa, and tongue normal and mucous membranes are moist Neck: supple, no adenopathy, non-tender, neck veins flat, trachea midline Lymph: no palpable lymphadenopathy Heart: regular rate & rhythm, no murmurs and no gallops Lungs: normal respiratory rate and rhythm, no chest wall tenderness, lungs clear to auscultation Abdomen: abdomen soft, non-tender,obese, normal bowel sounds and no masses or organomegaly Extremities: no edema, no clubbing, no cyanosis Neuro Exam: alert & oriented x 3 with fluent speech, no focal motor/sensory deficits Skin: skin color, texture, turgor are normal, no rashes or significant lesions ASSESSMENT: COVID-19 virus infection (Primary) Positive rapid Covid Will continue Paxlovid BID times 5 days Encourage oral fluids Q one hours while awake CBC with diff, BMP in AM Duonebs q four hours prn Siltussin prn as directed Will follow closely Malaise and fatigue Rest and fluids COPD, group B, by GOLD 2017 classification (HCC) Continue Duonebs Q four hours prn Continue Trelegy ellipta .5/ daily Coronary artery disease involving qagan tayagungin coronary artery of qagan tayagungin heart without angina pectoris Stable no angina Continue ASA 81mg daily 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HCC) 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 Senior Care Home Treatment Given: Other as above Electronically signed by: Kindra Pitts PA-C Over 45 minutes were spent in this visit more than half the time was spent counselling or coordinating care. documented in this encounter Plan of Treatment Upcoming Encounters Date Type Department Care Team (Late st Contact Info) Description 11/10/2023 9:20 AM EST Office Visit [facility] [address] [place] [address] Renny Abdi MD [address] [place] [address] 01/23/2024 1:00 PM EDT Office Visit Neurology [facility] [address] [place] [address] Nickolas Del Castillo, DO [address] [place], [place] [address] Health Maintenance Due Date Last Done Comments [...] 02/10/2015 LUNG CANCER SCREENING - USE SMARTSET 93486 Completed 07/30/2021, 07/20/2020, 07/17/2019, Additional history exists GARDASIL-HPV IMMUNIZATION SERIES Aged Out No longer eligible based on patient's age to complete this topic MENINGOCOCCAL (MENACTRA/MENVEO) Aged Out No longer eligible based on patient's age to complete this topic documented as of this encounter Medical Devices Implanted Type Area Prep Manager Device Identifier Shelf Expiration Date Model / Serial / Lot Lens Intraoc 21.0 - [id number] - [id number] Implanted:Qty: 1 on 12/27/2018 by Santiago Gill MD at OR [facility] Left: Eye BAUSCH & LOMB 03/01/2023 [id number] / [id number] / [id number] Lens Intraoc 21.5 - [id number] - [id number] Implanted:Qty: 1 on 01/15/2019 by Santiago Gill MD at OR [facility] Right: Eye BAUSCH & LOMB 08/01/2023 [id number] / [id number] / documented as of this encounter Visit Diagnoses Diagnosis COVID-19 virus infection- Primary Malaise and fatigue Other malaise and fatigue COPD, group B, by GOLD 2017 classification ([facility]) Coronary artery disease involving qagan tayagungin coronary artery of qagan tayagungin heart without angina pectoris 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
--- OUTSIDE RECORDS SUMMARY | 2024-01-23 18:33 | External Medical Summary | Summary of Care ---
Author Name Unknown Organization [facility] Address [address] [place] [address] Phone [phone] Care Team Providers Care Financial Service Representative Name Role Phone Renny Abdi MD Primary Care Provider + Reason for Visit * Reason Onset Date Comments Long Term Visit 10/12/2023 Encounter Details Date Type Department Care Team (Latest Contact Info) Description 10/12/2023 7:00 AM EST Long Term Visit [facility] [address] [place] [address] Kindra Pitts PA-C [address] [place] [address] Acute otalgia, right*; Impacted cerumen of right ear Allergies No known active allergiesdocumented as of this encounter (statuses as of 10/12/2023) Medications Medication Sig Dispensed Refills Start Date End Date Status Insulin Syringe-Needle U-100 (BD INSULIN SYR ULTRAFINE II) 31G X 5/16" 1 ML MISCIndications:Type 2 diabetes mellitus with hemoglobin A1c goal of less than 8.0% ([facility]),DM type 2 nursing care encounter ([facility]) use with insulin twice daily [address] 09/11/2018 Active Acetaminophen 325 MG Oral Tablet Take 1 Tablet by mouth every 6 hours as needed for Pain. 0 Active nystatin 496801 UNIT/GM creamIndications:Tin ea corporis Apply To affected area for two weeks twice daily 45 g 2 12/06/2019 Active Additional Information Patient taking differently: BID PRN, Apply To affected area for two weeks twice daily, Informant: At Discharge, Reported on 04/07/2023 GovDeliveryToSaiguo Ultra Mini w/Device KitIndications:Type 2 diabetes mellitus [...] BEFORE BEDTIME. 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 insulin 05/16/2019 Type 2 diabetes mellitus with peripheral vascula r disease 05/16/2019 Elevated diaphragm 05/16/2019 History of colon polyps 05/09/2019 BPPV (benign paroxysmal positional vertigo), rig ht 04/28/2018 Coronary artery disease invo [place] creek coronary artery of creek heart without angina pectoris 04/28/2018 Overactive bladder 12/12/2017 DM type 2 with diabetic peripheral neuropathy History of breast cancer 10/28/2016 Overview: S/p lumpectomy, XRT Arthritis of hand, degenerative 05/19/2015 Dyslipidemia, goal LDL below 100 10/06/2014 Nephrolithiasis 07/27/2014 Panic attacks 07/27/2014 Type 2 diabetes mellitus wit h hemoglobin A1c goal of less than 8.0% 05/28/2014 Overview: 05/10/14 a1c 9.4 @[facility]. documented as of this encounter (statuses as of 10/12/2023) Resolved Problems Problem Noted Date Diagnosed Date [...] 12/24/201405/2019 Acute pyelonephritis 07/27/2014 016 Overview: 06/15 [facility] ER +sepss Blood cx neg D/c on omnicef. Well adult exam 05/28/2014 09/20/2023 Overview: 02/25/23 CTA chest-1cm scletotic T4 lesion BONE SCAN no uptake. Need eval fatty liver/ update EKG. [facility] did not have on file. 05/22 EEG 72h WNL. EMG--This electrodiagnostic study is suggestive of a mild right median neuropathy at the wrist (carpal tunnel syndrome). There is no convincing electrodiagnostic evidence of a large fiber polyneuropathy. There is no electrophysiological evidence of a myopathy. 04/18 [facility] cardiac cath moderate disease small vessels, not stentable. . +borderline stress echo. EF 55-60. Mild LVH. Gr byrd dys. 10/[address] 06/16 repeat mammo/US ordered 12/14 Dr Barragan. 2 tubular adenoma <1cm Daughter Jennifer Winkler 06/15 [facility] ER ?pyelo. +powell sens E Coli documented as of this encounter (statuses as of 10/12/2023) Immunizations Name Administration Dates Next Due Pneumococcal [...] 11/10/2023 9:20 AM EST Office Visit Family [facility] [address] [place] [address] Rneny Abdi MD [address] [place] [address] 01/23/2024 1:00 PM EDT Office Visit Neurology [facility] [place] [address] [place] [address] Nickolas Del Castillo, [address] [place] [address] Health Maintenance Due Date Last Done Comments [...] 02/10/2015 LUNG CANCER SCREENING - USE SMARTSET 48383 Completed 07/30/2021, 07/20/2020, 07/17/2019, Additional history exists GARDASIL-HPV IMMUNIZATION SERIES Aged Out No longer eligible based on patient's age to complete this topic MENINGOCOCCAL (MENACTRA/MENVEO) Aged Out No longer eligible based on patient's age to complete this topic documented as of this encounter Medical Devices Implanted Type Area Aquatics Director Device Identifier Shelf Expiration Date Model / Serial / Lot Lens Intraoc 21.0 - [id number] - [id number] Implanted:Qty: 1 on 12/27/2018 by Santiago Gill MD at OR [facility] Left: Eye BAUSCH & LOMB 03/01/2023 [id number] / [id number] / [id number] Lens Intraoc 21.5 - [id number] - [id number] Implanted:Qty: 1 on 01/15/2019 by Santiago Gill MD at OR [facility] Right: Eye BAUSCH & LOMB 08/01/2023 [id number] / [id number] / documented as of this encounter Visit Diagnoses Diagnosis Acute otalgia, right- Primary Impacted cerumen of right ear Impacted cerumen documented in this encounter Advance Directives Healthcare Agents on File Name Relationship Healthcare Agent Relationshi p Communication Gene [place] Spouse Health Care Repr esentative (appointed verbally by patient or by statute hierarchy) Care Teams Financial Service Representative Relationship Specialty Start Date End Date Renny Abdi MD [address] [place] [address] PCP - General Family Medicine 10/06/14 documented as of this encounter
--- OUTSIDE RECORDS SUMMARY | 2024-01-23 18:33 | External Medical Summary | Summary of Care ---
Author Name Unknown Organization [facility] Address [address] [place] [address] Phone [phone] Care Team Providers Care Manager Studio Name Role Phone Renny Abdi MD Primary Care Provider + Reason for Visit * Reason Onset Date Comments Snf Visit 10/17/2023 Encounter Details Date Type Department Care Team (Latest Contact Info) Description 10/17/2023 9:30 AM EST Snf Visit [facility] [address] [place] [address] Kindra Pitts PA-C [address] [place] [address] Impacted cerumen of right ear*; Otalgia of right ear; DDD (degenerative disc disease), cervical Allergies No known active allergiesdocumented as of this encounter (statuses as of 10/17/2023) Medications Medication Sig Dispensed Refills Start Date End Date Status Insulin Syringe-Needle U-100 (BD INSULIN SYR ULTRAFINE II) 31G X 02/14" 1 ML MISCIndications:Type 2 diabetes mellitus with hemoglobin A1c goal of less than 8.0% ([facility]),DM type 2 nursing care encounter ([facility]) use with insulin twice daily [address] 09/11/2018 Active Acetaminophen 325 MG Oral Tablet Take 1 Tablet by mouth every 6 hours as needed for Pain. 0 Active nystatin 983547 UNIT/GM creamIndications:Tin ea corporis Apply To affected area for two weeks twice daily 45 g 2 12/06/2019 Active Additional Information Patient taking differently: BID PRN, Apply To affected area for two weeks twice daily, Informant: At Discharge, Reported on 04/07/2023 wufoouch Ultra Mini w/Device KitIndications:Type 2 diabetes mellitus [...] BEFORE BEDTIME. 180 Tablet 1 03/20/2023 Active [employer] Rik Lancets 33GIndications:Type 2 diabetes mellitus with hemoglobin A1c goal of less than 8.0% ([facility]) Ck FS daily E11.9 100 Each 10 03/20/2023 Active Fluticasone Propionate 50 MCG/ACT Nasal Suspension (Flonase)Indications :Chronic rhinitis USE 1 SPRAY NASALLY EVERY DAY 32 g 3 03/20/2023 Active Trelegy Ellipta 100-62.5-25 MCG/ACT Aerosol Powder Breath Activated (Fluticasone-Umeclid inium-Vilanterol)Ind ications:COPD, group B, by GOLD 2017 classification ([facility]) Inhale 1 Puff by mouth in the morning. 180 Each 3 03/20/2023 Active Albuterol Sulfate (2.5 MG/3ML) 0.083% Inhalation Nebulization Solution Inhale 1 Vial via nebulizer. As directed, if needed, for shortness of breath or wheezing 0 Active OneTouch Ultra In Vitro Strip (Glucose Blood)Indications:Ty pe 2 diabetes mellitus with hemoglobin A1c goal of less than 8.0% ([facility]) Use as directed 2 times daily E11.9 [...] 2 diabetes mellitus with peripheral vascular disease ([facility]) Take 1 Tablet by mouth at bedtime. [...] as of this encounter (statuses as of 10/17/2023) Active Problems Problem Noted Date Diagnosed Date [...] ht 04/28/2018 Coronary artery disease invo lving [place] coronary artery of [place] heart without angina pectoris 04/28/2018 Overactive bladder 12/12/2017 DM type 2 with diabetic peripheral neuropathy History of breast cancer 10/28/2016 Overview: S/p lumpectomy, XRT Arthritis of hand, degenerative 05/19/2015 Dyslipidemia, goal LDL below 100 10/06/2014 Nephrolithiasis 07/27/2014 Panic attacks 07/27/2014 Type 2 diabetes mellitus wit h hemoglobin A1c goal of less than 8.0% 05/28/2014 Overview: 05/10/14 a1c 9.4 @[facility]. documented as of this encounter (statuses as of 10/17/2023) Resolved Problems Problem Noted Date Diagnosed Date [...] Acute pyelonephritis 07/27/2014 016 Overview: 06/15 [facility] ER +sepss Blood cx neg D/c on omnicef. Well adult exam 05/28/2014 09/20/2023 Overview: 02/25/23 CTA chest-1cm scletotic T4 lesion BONE SCAN no uptake. Need eval fatty liver/ update EKG. [facility] did not have on file. 05/22 EEG 72h WNL. EMG--This electrodiagnostic study is suggestive of a mild right median neuropathy at the wrist (carpal tunnel syndrome). There is no convincing electrodiagnostic evidence of a large fiber polyneuropathy. There is no electrophysiological evidence of a myopathy. 04/18 [facility] cardiac cath moderate disease small vessels, not stentable. . +borderline stress echo. EF 55-60. Mild LVH. Gr byrd dys. 10/[address] 06/16 repeat mammo/US ordered 12/14 Dr Barragan. 2 tubular adenoma <1cm Daughter Jennifer Winkler 06/15 [facility] ER ?pyelo. +powell sens E Coli documented as of this encounter (statuses as of 10/17/2023) Immunizations Name Administration Dates Next Due Pneumococcal [...] Progress Notes * Kindra Pitts PA-C - 10/17/2023 11:21 AM EST Name: Criselda Patrick Date of :1950 TRANSITION EVENT: Type: Non-applicable Date: October 17 Code Status: Full Code This note pertains to care provided at [facility]. Please see facility medical record for original note. This note is not to be edited or addended in [employer]. Editing or addending needs to occur in the facilities medical record. Subjective: Criselda Patrick is a 73 year old female. Patient being seen for two issues Chief Complaint Patient presents with Snf Visit HPI: I was asked to reassess at her and 's request for two issues Pt was seen last week for otalgia right ear which was of several days duration. Pt was noted to have cerumen impaction right ear. Debrox otic was instilled times two days and then irrigation daily times 3 days with some cerumen removed. Pt still having almost the same ear pain. No sinus pain or pressure. Muffled hearing. No chills or fever. No sore throat or swollen glands. Pt also was seen last week or so for neck pain affecting her ADLs and sleep. No neck injury or trauma. No radicular pain or numbness in UEs. Xray of C spine done in facility showed DDD changes otherwise normal. ICy Hot and warm moist compresses ordered with limited relief CBC Results: Results for orders placed or [...] hemoglobin A1c goal of less than 8.0% ([facility]) E11.9 Nephrolithiasis N20.0 Panic attacks F41.0 Dyslipidemia, goal LDL below 100 E78.5 Arthritis of hand, degenerative M19.049 History of breast cancer Z85.3 DM type 2 with diabetic peripheral neuropathy ([facility]) E11.42 Overactive bladder N32.81 BPPV (benign paroxysmal positional vertigo), right H81.11 Coronary artery disease involving [place] coronary artery of [place] heart without angina pectoris I25.10 History of colon polyps Z86.010 technician terminal and repeater (current) use of insulin ([facility]) Z79.4 Type 2 diabetes mellitus with peripheral vascular disease ([facility]) E11.51 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 COPD, group B, by GOLD 2017 classification ([facility]) J44.9 Gastroesophageal reflux disease without esophagitis K21.9 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 BMI 40.0-44.9, adult ([facility]) Z68.41 Full code status Z78.9 Primary osteoarthritis of both knees M17.0 Lesion of bone of thoracic spine M89.9 Medical home patient encounter Z00.8 S/P TKR (total knee replacement), left Z96.652 Slow transit constipation K59.01 Venous insufficiency I87.2 Past Medical History: Diagnosis Date Acute pyelonephritis 07/27/201406/15 [facility] ER Arthritis of hand, degenerative 05/19/2015 BPPV (benign paroxysmal positional vertigo), right 04/28/2018 Coronary artery disease involving [place] coronary artery of [place] heart without angina pectoris 04/28/2018 DM type [...] Laterality Date CARDIAC CATH SCANNED RESULT 04/20/2018 [facility]. no severe CAD COLONOSCOPY, DIAGNOSTIC (RECTUM) 12/19/2014 adenomatous polyp, diverticulosis, repeat 5 yrs/[facility] MISCELLANEOUS ORDER ([facility] ONLY) Right 1997 lumpectomy right breast cancer NE ARTHRP KNE CONDYLE&PLATU MEDIAL&LAT COMPARTMENTS Left 07/28/2023 TKA left, Dr Taylor [facility] REMOVE CATARACT, INSERT LENS PROSTH Left 12/27/2018 left EXTRACAPSULAR CATARACT REMOVAL WITH INTRAOCULAR LENS performed by Santiago Gill MD at [facility] REMOVE CATARACT, INSERT LENS PROSTH Right 01/15/2019 right EXTRACAPSULAR CATARACT REMOVAL WITH INTRAOCULAR LENS performed by Santiago Gill MD at [facility] Family History Problem Relation Age of Onset [...] Not on file Occupational History 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 Review of Systems: Constitutional ROS: No change in weight, No weakness, No fatigue and No fevers, sweats, or chills Ear: see HPI Nose ROS: No nasal stuffiness and No significant epistaxis Mouth/Throat ROS: No thrush or No sore throat Neck ROS: see HPI Pulmonary ROS: No cough, sputum, or hemoptysis, No wheezing, No shortness of breath and No recent change in breathing Cardiovascular ROS: No chest pain, No shortness of breath, No edema, No palpitations and No syncope Gastrointestinal ROS: No abdominal pain, No change in bowel habits, No significant change in appetite, No nausea, vomiting, diarrhea, or constipation and No dysphagia Musculoskeletal/Extremities ROS: s/p left TKR Skin/Integumentary ROS: No rash and No itching Neurologic ROS: No headaches and +myoclonic epilepsy Psychiatric ROS: No depression, No anxiety and No psychosis Sleep: No sleep disorders OBJECTIVE: PHYSICALEXAM: I reviewed the most recent facilities vitals. General: alert, no distress, well nourished and well developed Eye Exam: Conjunctiva are pink and non-injected, sclera clear Ears: External ears normal right TM still occluded with cerumen Nose: no mucosal erythema, no mucosal edema, no purulent discharge Oropharynx: no exudate, no erythema, lips, buccal mucosa, and tongue normal and mucous membranes are moist Neck: tender and taut cervical paravertebral muscles. no adenopathy, non-tender, neck veins flat, trachea midline Heart: regular rate & rhythm, no murmurs and no gallops Lungs: normal respiratory rate and rhythm, no chest wall tenderness, lungs clear to auscultation Abdomen: abdomen soft, non-tender, normal bowel sounds and no masses or organomegaly Skin: skin color, texture, turgor are normal, no rashes or significant lesions Musculoskeletal: moves all extremities with good strength ASSESSMENT: Impacted cerumen of right ear (Primary) Will begin Debrox course as directted I will irrigate ear tomorrow Otalgia of right ear Continue Tylenol prn for now DDD (degenerative disc disease), cervical Voltaren gel QID prn as directed PLAN: Reviewed CBC, BMP, Lytes and Continue [...] 9:20 AM EST Office Visit Family Practice [facility] [address] [place] [address] Renny Abdi MD [address] [place] [address] 01/23/2024 1:00 PM EDT Office Visit Neurology [facility] [address] [facility] [address] [place] [address] Nickolas Del Castillo, [address] [facility] [place] [address] Health Maintenance Due Date Last Done Comments [...] 02/10/2015 LUNG CANCER SCREENING - USE SMARTSET 18210 Completed 07/30/2021, 07/20/2020, 07/17/2019, Additional history exists GARDASIL-HPV IMMUNIZATION SERIES Aged Out No longer eligible based on patient's age to complete this topic MENINGOCOCCAL (MENACTRA/MENVEO) Aged Out No longer eligible based on patient's age to complete this topic documented as of this encounter Medical Devices Implanted Type Area Turbine Attendant Device Identifier Shelf Expiration Date Model / Serial / Lot Lens Intraoc 21.0 - [id number] - [id number] Implanted:Qty: 1 on 12/27/2018 by Santiago Gill MD at [facility] Left: Eye BAUSCH & LOMB 03/01/2023 [id number] / [id number] / [id number] Lens Intraoc 21.5 - [id number] - [id number] Implanted:Qty: 1 on 01/15/2019 by Santiago Gill MD at [facility] Right: Eye BAUSCH & LOMB 08/01/2023 [id number] / [id number] / documented as of this encounter Visit Diagnoses Diagnosis Impacted cerumen of right ear- Primary Impacted cerumen Otalgia of right ear Otalgia, unspecified DDD (degenerative disc disease), cervical Degeneration of cervical intervertebral disc documented in this encounter Advance Directives Healthcare Agents on File Name Relationship Healthcare Agent Relationshi p Communication Gene Sana Spouse Health Care Repr esentative (appointed verbally by patient or by statute hierarchy) Care Teams Manager Studio Relationship Specialty Start Date End Date Renny Abdi MD [address] [place] [address] PCP - General Family Medicine 10/06/14 documented as of this encounter
--- OUTSIDE RECORDS SUMMARY | 2024-01-23 18:33 | External Medical Summary | Summary of Care ---
Author Name Unknown Organization [facility] Address [address] [place] [address] Phone [phone] Care Team Providers Care Registered Nurse Supervisor Name Role Phone Renny Abdi MD Primary Care Provider + Reason for Visit * Reason Onset Date Comments Detention Visit 10/05/2023 Encounter Details Date Type Department Care Team (Late st Contact Info) Description 10/05/2023 2:00 PM EST Detention Visit [address] [address] Ellen Santoro PA-C [address] [place] [phone] Neck pain*; Intertrigo Allergies No known active allergiesdocumented as of this encounter (statuses as of 10/05/2023) Medications Medication Sig Dispensed Refills Start Date End Date Status Insulin Syringe-Needle U-100 (BD INSULIN SYR ULTRAFINE II) 31G X 5/16" 1 ML MISCIndications:Type 2 diabetes mellitus with hemoglobin A1c goal of less than 8.0% ([facility]),DM type 2 nursing care encounter ([facility]) use with insulin twice daily [address] 09/11/2018 Active Acetaminophen 325 MG Oral Tablet Take 1 Tablet by mouth every 6 hours as needed for Pain. 0 Active nystatin 009176 UNIT/GM creamIndications:Tin ea corporis Apply To affected area for two weeks twice daily 45 g 2 12/06/2019 Active Additional Information Patient taking differently: BID PRN, Apply To affected area for two weeks twice daily, Informant: At Discharge, Reported on 04/07/2023 [email or web address] Ultra Mini w/Device KitIndications:Type 2 diabetes mellitus with hemoglobin A1c goal of less than 8.0% ([facility]) Ck FS twice daily on insulin [...] BEFORE BEDTIME. 180 Tablet 1 03/20/2023 Active [email or web address] Rik Alexander 33GIndications:Type 2 diabetes mellitus with hemoglobin A1c goal of less than 8.0% ([facility]) Ck FS daily E11.9 100 Each 10 03/20/2023 Active Fluticasone Propionate 50 MCG/ACT Nasal Suspension (Flonase)Indications :Chronic rhinitis USE 1 SPRAY NASALLY EVERY DAY 32 g 3 03/20/2023 Active Trelegy Ellipta 100-62.5-25 MCG/ACT Aerosol Powder Breath Activated (Fluticasone-Umeclid inium-Vilanterol)Ind ications:COPD, group B, by GOLD 2017 classification ([facility]) Inhale 1 Puff by mouth [...] as of this encounter (statuses as of 10/05/2023) Active Problems Problem Noted Date Diagnosed Date [...] ht 04/28/2018 Coronary artery disease invo lving [place] coronary artery of [place] heart without angina pectoris 04/28/2018 Overactive bladder 12/12/2017 DM type 2 with diabetic peripheral neuropathy History of breast cancer 10/28/2016 Overview: S/p lumpectomy, XRT Arthritis of hand, degenerative 05/19/2015 Dyslipidemia, goal LDL below 100 10/06/2014 Nephrolithiasis 07/27/2014 Panic attacks 07/27/2014 Type 2 diabetes mellitus wit h hemoglobin A1c goal of less than 8.0% 05/28/2014 Overview: 05/10/14 a1c 9.4 @[facility]. documented as of this encounter (statuses as of 10/05/2023) Resolved Problems Problem Noted Date Diagnosed Date [...] Acute pyelonephritis 07/27/2014 016 Overview: 06/15 [facility] ER +sepss Blood cx neg D/c on omnicef. Well adult exam 05/28/2014 09/20/2023 Overview: 02/25/23 CTA chest-1cm scletotic T4 lesion BONE SCAN no uptake. Need eval fatty liver/ update EKG. [facility] did not have on file. 05/22 EEG 72h WNL. EMG--This electrodiagnostic study is suggestive of a mild right median neuropathy at the wrist (carpal tunnel syndrome). There is no convincing electrodiagnostic evidence of a large fiber polyneuropathy. There is no electrophysiological evidence of a myopathy. 04/18 [facility] cardiac cath moderate disease small vessels, not stentable. . +borderline stress echo. EF 55-60. Mild LVH. Gr byrd dys. 10/[address] 06/16 repeat mammo/US ordered 12/14 Dr Barragan. 2 tubular adenoma <1cm Daughter Jennifer Winkler 06/15 [facility] ER ?pyelo. +powell sens E Coli documented as of this encounter (statuses as of 10/05/2023) Immunizations Name Administration Dates Next Due Pneumococcal [...] 11/10/2023 9:20 AM EST Office Visit Family [facility] [address] [place] [address] Renny Abdi MD [address] [place] [address] 01/23/2024 1:00 PM EDT Office Visit Neurology [facility] [address] [place] [address] Nickolas Del Castillo, [address] [place] [address] Health Maintenance Due Date Last Done Comments [...] 02/10/2015 LUNG CANCER SCREENING - USE SMARTSET 77184 Completed 07/30/2021, 07/20/2020, 07/17/2019, Additional history exists GARDASIL-HPV IMMUNIZATION SERIES Aged Out No longer eligible based on patient's age to complete this topic MENINGOCOCCAL (MENACTRA/MENVEO) Aged Out No longer eligible based on patient's age to complete this topic documented as of this encounter Medical Devices Implanted Type Area Single Needle Tufting Machine Operator Device Identifier Shelf Expiration Date Model / Serial / Lot Lens Intraoc 21.0 - [id number] - [id number] Implanted:Qty: 1 on 12/27/2018 by Santiago Gill MD at [facility] Left: Eye BAUSCH & LOMB 03/01/2023 [id number] / [id number] / [id number] Lens Intraoc 21.5 - [id number] - [id number] Implanted:Qty: 1 on 01/15/2019 by Santiago Gill MD at [facility] Right: Eye BAUSCH & LOMB 08/01/2023 [id number] / [id number] / documented as of this encounter Visit Diagnoses Diagnosis Neck pain- Primary Cervicalgia Intertrigo Other specified erythematous condition documented in this encounter Advance Directives Healthcare Agents on File Name Relationship Healthcare Agent Relationshi p Communication Gene [place] Spouse Health Care Repr esentative (appointed verbally by patient or by statute hierarchy) Care Teams Registered Nurse Supervisor Relationship Specialty Start Date End Date Renny Abdi MD [address] [place] [address] PCP - General Family Medicine 10/06/14 documented as of this encounter
--- OUTSIDE RECORDS SUMMARY | 2024-01-23 18:33 | External Medical Summary | Summary of Care ---
Author Name Unknown Organization [facility] Address [address] [place] [address] Phone [phone] Care Team Providers Care Plating Foreman Name Role Phone Renny Abdi MD Primary Care Provider + Reason for Visit * Reason Onset Date Comments Halfway Visit 10/23/2023 Encounter Details Date Type Department Care Team (Latest Contact Info) Description 10/23/2023 7:00 AM EST Halfway Visit [facility] [address] [place] [address] Kindra Pitts PA-C [address] [place] [address] Non-recurrent acute serous otitis media of right ear*; Impacted cerumen of left ear Allergies No known active allergiesdocumented as of this encounter (statuses as of 10/23/2023) Medications Medication Sig Dispensed Refills Start Date [...] as needed for Pain. 0 Active nystatin 844384 UNIT/GM creamIndications:Tin ea corporis Apply To affected area for two weeks twice daily 45 g 2 12/06/2019 Active Additional Information Patient taking differently: BID PRN, Apply To affected area for two weeks twice daily, Informant: At Discharge, Reported on 04/07/2023 [employer] Ultra Mini w/Device KitIndications:Type 2 diabetes mellitus [...] BEFORE BEDTIME. 180 Tablet 1 03/20/2023 Active [employer] Rik Alexander 33GIndications:Type 2 diabetes mellitus with [...] as of this encounter (statuses as of 10/23/2023) Active Problems Problem Noted Date Diagnosed Date [...] classification 07/26 Overview: Noted on screening CT senior care (current) use of insulin 05/16/2019 Type 2 diabetes mellitus with peripheral vascula r disease 05/16/2019 Elevated diaphragm 05/16/2019 History of colon polyps 05/09/2019 BPPV (benign paroxysmal positional vertigo), rig ht 04/28/2018 Coronary artery disease invo lving eek coronary artery of eek heart without angina pectoris 04/28/2018 Overactive bladder 12/12/2017 DM type 2 with diabetic peripheral neuropathy History of breast cancer 10/28/2016 Overview: S/p lumpectomy, XRT Arthritis of hand, degenerative 05/19/2015 Dyslipidemia, goal LDL below 100 10/06/2014 Nephrolithiasis 07/27/2014 Panic attacks 07/27/2014 Type 2 diabetes mellitus wit h hemoglobin A1c goal of less than 8.0% 05/28/2014 Overview: 05/10/14 a1c 9.4 @[facility]. documented as of this encounter (statuses as of 10/23/2023) Resolved Problems Problem Noted Date Diagnosed Date [...] Acute pyelonephritis 07/27/2014 016 Overview: 06/15 [facility] ER +sepss Blood cx neg D/c on omnicef. Well adult exam 05/28/2014 09/20/2023 Overview: 02/25/23 CTA chest-1cm scletotic T4 lesion BONE SCAN no uptake. Need eval fatty liver/ update EKG. [facility] did not have on file. 05/22 EEG 72h WNL. EMG--This electrodiagnostic study is suggestive of a mild right median neuropathy at the wrist (carpal tunnel syndrome). There is no convincing electrodiagnostic evidence of a large fiber polyneuropathy. There is no electrophysiological evidence of a myopathy. 04/18 [facility] cardiac cath moderate disease small vessels, not stentable. . +borderline stress echo. EF 55-60. Mild LVH. Gr byrd dys. 10/[address] 06/16 repeat mammo/US ordered 12/14 Dr Barragan. 2 tubular adenoma <1cm Daughter Jennifer Winkler 06/15 [facility] ER ?pyelo. +powell sens E Coli documented as of this encounter (statuses as of 10/23/2023) Immunizations Name Administration Dates Next Due Pneumococcal [...] Progress Notes * Kindra Pitts PA-C - 10/23/2023 9:20 AM EST Name: Criselda Patrick Date of :1950 TRANSITION EVENT: Type: Non-applicable Date: October 23 Code Status: Full Code This note pertains to care provided at [facility]. Please see facility medical record for original note. This note is not to be edited or addended in [employer]. Editing or addending needs to occur in the facilities medical record. Subjective: Criselda Patrick is a 73 year old female. Patient being seen for two issies Chief Complaint Patient presents with Halfway Visit HPI: pt continues to have blocked and full sensation right ear. Had right cerumen impaction a week or so ago and had Debrox followed by irrigation of ear with cerumen removed. TM did not look infected but ear fluid level noted. Some muffled hearing no sinus pain or pressure. Begun on Flonase two sprays each nostril daily for above. Still not completely resolved. No dizziness or vertigo. Pt now c/o fullness left ear. No otorrhea or ear pain. No chills or fever. Patient Active Problem List Diagnosis Code Type 2 diabetes mellitus with hemoglobin A1c goal of less than 8.0% ([facility]) E11.9 Nephrolithiasis N20.0 Panic attacks F41.0 Dyslipidemia, goal LDL below 100 E78.5 Arthritis of hand, degenerative M19.049 History of breast cancer Z85.3 DM type 2 with diabetic peripheral neuropathy ([facility]) E11.42 Overactive bladder N32.81 BPPV (benign paroxysmal positional vertigo), right H81.11 Coronary artery disease involving eek coronary artery of eek heart without angina pectoris I25.10 History of colon polyps 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 ([facility]) Z79.4 Type 2 diabetes mellitus with peripheral vascular disease ([facility]) E11.51 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 COPD, group B, by GOLD 2017 classification ([facility]) J44.9 Gastroesophageal reflux disease without esophagitis K21.9 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 BMI 40.0-44.9, adult ([facility]) Z68.41 Full code status Z78.9 Primary osteoarthritis of both knees M17.0 Lesion of bone of thoracic spine M89.9 Medical home patient encounter Z00.8 S/P TKR (total knee replacement), left Z96.652 Slow transit constipation K59.01 Venous insufficiency I87.2 Past Medical History: Diagnosis Date Acute pyelonephritis 07/27/201406/15 [facility] ER Arthritis of hand, degenerative 05/19/2015 BPPV (benign paroxysmal positional vertigo), right 04/28/2018 Coronary artery disease involving eek coronary artery of eek heart without angina pectoris 04/28/2018 DM type [...] Laterality Date CARDIAC CATH SCANNED RESULT 04/20/2018 [facility]. no severe CAD COLONOSCOPY, DIAGNOSTIC (RECTUM) 12/19/2014 adenomatous polyp, diverticulosis, repeat 5 yrs/[facility] MISCELLANEOUS ORDER ([facility] ONLY) Right 1997 lumpectomy right breast cancer [place] ARTHRP KNE CONDYLE&PLATU MEDIAL&LAT COMPARTMENTS Left 07/28/2023 TKA left, Dr Taylor [facility] REMOVE CATARACT, INSERT LENS PROSTH Left 12/27/2018 left EXTRACAPSULAR CATARACT REMOVAL WITH INTRAOCULAR LENS performed by Santiago Gill MD at OR [facility] REMOVE CATARACT, INSERT LENS PROSTH Right 01/15/2019 right EXTRACAPSULAR CATARACT REMOVAL WITH INTRAOCULAR LENS performed by Santiago Gill MD at OR [facility] Family History Problem Relation Age of Onset [...] Not on file Occupational History 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 Review of Systems: Constitutional ROS: No change in weight, No weakness, No fatigue and No fevers, sweats, or chills Ear ROS:see HPI Nose ROS: No nasal stuffiness and [...] No edema, No palpitations and No syncope OBJECTIVE: PHYSICALEXAM: I reviewed the most recent facilities vitals. General: alert, no distress, well nourished and well developed Ears: External ears normal Right TM dull with AF level noted. Cannot visualize left TM due to cerumen Nose: no mucosal erythema, no mucosal edema, no purulent discharge Oropharynx: no exudate, no erythema, lips, buccal mucosa, and tongue normal and mucous membranes are moist Neck: supple, no adenopathy, non-tender, neck veins flat, trachea midline ASSESSMENT: Non-recurrent acute serous otitis media of right ear (Primary) Impacted cerumen of left ear PLAN: Will begin Claritin 10mg daily for serous OM right ear. Will begin Debrox otic left ear per [facility] protocol and will irrigate ear tomorrow and Continue present medication(s):as ordered. Senior Care Home Treatment Given: as above Electronically signed by: Kindra Pitts PA-C Over 20 minutes were spent in this visit more than half the time was spent counselling or coordinating care. documented in this encounter Plan of Treatment Upcoming Encounters Date Type Department Care Team (Late st Contact Info) Description 11/10/2023 9:20 AM EST Office Visit [facility] [address] [place] [place] [address] Renny Abdi MD [address] [place] [place] [address] 01/23/2024 1:00 PM EDT Office Visit Neurology [facility] [address] [facility] [place] [address] Nickolas Del Castillo, DO [address] [facility] [place] [address] Health Maintenance Due Date Last Done Comments [...] 02/10/2015 LUNG CANCER SCREENING - USE SMARTSET 32787 Completed 07/30/2021, 07/20/2020, 07/17/2019, Additional history exists GARDASIL-HPV IMMUNIZATION SERIES Aged Out No longer eligible based on patient's age to complete this topic MENINGOCOCCAL (MENACTRA/MENVEO) Aged Out No longer eligible based on patient's age to complete this topic documented as of this encounter Medical Devices Implanted Type Area Professor Of French Device Identifier Shelf Expiration Date Model / Serial / Lot Lens Intraoc 21.0 - [id number] - [id number] Implanted:Qty: 1 on 12/27/2018 by Santiago Gill MD at OR [facility] Left: Eye BAUSCH & LOMB 03/01/2023 [id number] / [id number] / [id number] Lens Intraoc 21.5 - [id number] - [id number] Implanted:Qty: 1 on 01/15/2019 by Santiago Gill MD at OR [facility] Right: Eye BAUSCH & LOMB 08/01/2023 [id number] / [id number] / documented as of this encounter Visit Diagnoses Diagnosis Non-recurrent acute serous otitis media of right ear- Primary Impacted cerumen of left ear Impacted cerumen documented in this encounter Advance Directives Healthcare Agents on File Name Relationship Healthcare Agent Relationshi p Communication Gene [place] Spouse Health Care Repr esentative (appointed verbally by patient or by statute hierarchy) Care Teams Plating Foreman Relationship Specialty Start Date End Date Renny Abdi MD [address] [place] [address] PCP - General Family Medicine 10/06/14 documented as of this encounter
--- OUTSIDE RECORDS SUMMARY | 2024-01-23 18:33 | External Medical Summary | Summary of Care ---
Author Name Unknown Organization [facility] Address [address] [place] [address] Phone [phone] Care Team Providers Care Polymerization Oven Operator Name Role Phone Renny Abdi MD Primary Care Provider + Reason for Visit * Reason Onset Date Comments Shelter Visit 10/20/2023 Encounter Details Date Type Department Care Team (Late st Contact Info) Description 10/19/2023 10:00 AM EST Shelter Visit [facility] [address] [place] [address] Kindra Pitts PA-C [address] [place] [address] Thrush* Allergies No known active allergiesdocumented as of this encounter (statuses as of 10/20/2023) Medications Medication Sig Dispensed Refills Start Date [...] as needed for Pain. 0 Active nystatin 294571 UNIT/GM creamIndications:Tin ea corporis Apply To affected area for two weeks twice daily 45 g 2 12/06/2019 Active Additional Information Patient taking differently: BID PRN, Apply To affected area for two weeks twice daily, Informant: At Discharge, Reported on 04/07/2023 [employer] Ultra Mini w/Device KitIndications:Type 2 diabetes mellitus with hemoglobin A1c goal of less than 8.0% ([facility]) Ck FS twice daily on insulin [...] BEFORE BEDTIME. 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 05/16/2019 Type 2 diabetes mellitus with peripheral vascula r disease 05/16/2019 Elevated diaphragm 05/16/2019 History of colon polyps 05/09/2019 BPPV (benign paroxysmal positional vertigo), rig ht 04/28/2018 Coronary artery disease invo lving [place] coronary artery of [place] heart without angina pectoris 04/28/2018 Overactive bladder 12/12/2017 DM type 2 with diabetic peripheral neuropathy History of breast cancer 10/28/2016 Overview: S/p lumpectomy, XRT Arthritis of hand, degenerative 05/19/2015 Dyslipidemia, goal LDL below 100 10/06/2014 Nephrolithiasis 07/27/2014 Panic attacks 07/27/2014 Type 2 diabetes mellitus wit h hemoglobin A1c goal of less than 8.0% 05/28/2014 Overview: 05/10/14 a1c 9.4 @[facility]. documented as of this encounter (statuses as of 10/20/2023) Resolved Problems Problem Noted Date Diagnosed Date [...] 12/24/201405/2019 Acute pyelonephritis 07/27/2014 016 Overview: 06/15 [facility] ER +sepss Blood cx neg D/c on omnicef. Well adult exam 05/28/2014 09/20/2023 Overview: 02/25/23 CTA chest-1cm scletotic T4 lesion BONE SCAN no uptake. Need eval fatty liver/ update EKG. [facility] did not have on file. 05/22 EEG 72h WNL. EMG--This electrodiagnostic study is suggestive of a mild right median neuropathy at the wrist (carpal tunnel syndrome). There is no convincing electrodiagnostic evidence of a large fiber polyneuropathy. There is no electrophysiological evidence of a myopathy. 04/18 [facility] cardiac cath moderate disease small vessels, not stentable. . +borderline stress echo. EF 55-60. Mild LVH. Gr byrd dys. 10/[address] 06/16 repeat mammo/US ordered 12/14 Dr Barragan. 2 tubular adenoma <1cm Daughter Jennifer Winkler 06/15 [facility] ER ?pyelo. +powell sens E Coli documented as of this encounter (statuses as of 10/20/2023) Immunizations Name Administration Dates Next Due Pneumococcal [...] 9:20 AM EST Office Visit Family Practice [facility] [address] [place] [address] Renny Abdi MD [address] [place] [place] [address] 01/23/2024 1:00 PM EDT Office Visit Neurology [facility] [address] [facility] [place] [address] Nickolas Del Castillo, DO [address] [facility] [place] [address] Health Maintenance Due Date Last Done Comments [...] 02/10/2015 LUNG CANCER SCREENING - USE SMARTSET 05464 Completed 07/30/2021, 07/20/2020, 07/17/2019, Additional history exists GARDASIL-HPV IMMUNIZATION SERIES Aged Out No longer eligible based on patient's age to complete this topic MENINGOCOCCAL (MENACTRA/MENVEO) Aged Out No longer eligible based on patient's age to complete this topic documented as of this encounter Medical Devices Implanted Type Area Substance Abuse Nurse Device Identifier Shelf Expiration Date Model / Serial / Lot Lens Intraoc 21.0 - [id number] - [id number] Implanted:Qty: 1 on 12/27/2018 by Santiago Gill MD at OR [facility] Left: Eye BAUSCH & LOMB 03/01/2023 [id number] / [id number] / [id number] Lens Intraoc 21.5 - [id number] - [id number] Implanted:Qty: 1 on 01/15/2019 by Santiago Gill MD at OR [facility] Right: Eye BAUSCH & LOMB 08/01/2023 [id number] / [id number] / documented as of this encounter Visit Diagnoses Diagnosis Thrush- Primary Candidiasis of mouth documented in this encounter Advance Directives Healthcare Agents on File Name Relationship Healthcare Agent Relationshi p Communication Gene Sana Spouse Health Care Repr esentative (appointed verbally by patient or by statute hierarchy) Care Teams Polymerization Oven Operator Relationship Specialty Start Date End Date Renny Abdi MD [address] [place] [address] PCP - General Family Medicine 10/06/14 documented as of this encounter
--- OUTSIDE RECORDS SUMMARY | 2024-01-23 18:33 | External Medical Summary | Summary of Care ---
Author Name Unknown Organization [facility] Address [address] [place] [address] Phone [phone] Care Team Providers Care Shipwright Helper Name Role Phone Renny Abdi MD Primary Care Provider + Reason for Visit * Reason Onset Date Comments [facility] Visit 10/18/2023 Encounter Details Date Type Department Care Team (Latest Contact Info) Description 10/18/2023 7:00 AM EST [facility] Visit [facility] [address] [place] [address] Kindra Pitts PA-C [address] [place] [address] Impacted cerumen of right ear* Allergies No known active allergiesdocumented as of this encounter (statuses as of 10/18/2023) Medications Medication Sig Dispensed Refills Start Date [...] as needed for Pain. 0 Active nystatin 607249 UNIT/GM creamIndications:Tin ea corporis Apply To affected area for two weeks twice daily 45 g 2 12/06/2019 Active Additional Information Patient taking differently: BID PRN, Apply To affected area for two weeks twice daily, Informant: At Discharge, Reported on 04/07/2023 [employer] Ultra Mini w/Device KitIndications:Type 2 diabetes mellitus [...] BEFORE BEDTIME. 180 Tablet 1 03/20/2023 Active [employer] Rik Alexander 33GIndications:Type 2 diabetes mellitus with [...] as of this encounter (statuses as of 10/18/2023) Active Problems Problem Noted Date Diagnosed Date [...] classification 07/26 Overview: Noted on screening CT longterm (current) use of insulin 05/16/2019 Type 2 diabetes mellitus with peripheral vascula r disease 05/16/2019 Elevated diaphragm 05/16/2019 History of colon polyps 05/09/2019 BPPV (benign paroxysmal positional vertigo), rig ht 04/28/2018 Coronary artery disease invo lving [place] coronary artery of [place] heart without angina pectoris 04/28/2018 Overactive bladder 12/12/2017 DM type 2 with diabetic peripheral neuropathy History of breast cancer 10/28/2016 Overview: S/p lumpectomy, XRT Arthritis of hand, degenerative 05/19/2015 Dyslipidemia, goal LDL below 100 10/06/2014 Nephrolithiasis 07/27/2014 Panic attacks 07/27/2014 Type 2 diabetes mellitus wit h hemoglobin A1c goal of less than 8.0% 05/28/2014 Overview: 05/10/14 a1c 9.4 @[facility]. documented as of this encounter (statuses as of 10/18/2023) Resolved Problems Problem Noted Date Diagnosed Date [...] 12/24/201405/2019 Acute pyelonephritis 07/27/2014 016 Overview: 06/15 [facility] ER +sepss Blood cx neg D/c on omnicef. Well adult exam 05/28/2014 09/20/2023 Overview: 02/25/23 CTA chest-1cm scletotic T4 lesion BONE SCAN no uptake. Need eval fatty liver/ update EKG. [facility] did not have on file. 05/22 EEG 72h WNL. EMG--This electrodiagnostic study is suggestive of a mild right median neuropathy at the wrist (carpal tunnel syndrome). There is no convincing electrodiagnostic evidence of a large fiber polyneuropathy. There is no electrophysiological evidence of a myopathy. 04/18 [facility] cardiac cath moderate disease small vessels, not stentable. . +borderline stress echo. EF 55-60. Mild LVH. Gr byrd dys. 10/[address] 06/16 repeat mammo/US ordered 12/14 Dr Barragan. 2 tubular adenoma <1cm Daughter Jennifer Winkler 06/15 [facility] ER ?pyelo. +powell sens E Coli documented as of this encounter (statuses as of 10/18/2023) Immunizations Name Administration Dates Next Due Pneumococcal [...] 11/10/2023 9:20 AM EST Office Visit Family [facility] [address] [place] [address] Renny Abdi MD [address] [place] [address] 01/23/2024 1:00 PM EDT Office Visit Neurology [facility] [address] [facility] [place] [address] Nickolas Del Castillo, [address] [place] [address] Scheduled Orders Name Type Priority Associated Diagnoses Orde r Schedule REMOVAL IMPACTED CERUMEN IRRIGATION/LAVAGE, UNILAT Procedures Routine Impacted cerumen of right ear Ordered: 10/18/2023 Health Maintenance Due Date Last Done Comments [...] 02/10/2015 LUNG CANCER SCREENING - USE SMARTSET 65123 Completed 07/30/2021, 07/20/2020, 07/17/2019, Additional history exists GARDASIL-HPV IMMUNIZATION SERIES Aged Out No longer eligible based on patient's age to complete this topic MENINGOCOCCAL (MENACTRA/MENVEO) Aged Out No longer eligible based on patient's age to complete this topic documented as of this encounter Medical Devices Implanted Type Area Cd Manufacturing Supervisor Device Identifier Shelf Expiration Date Model / Serial / Lot Lens Intraoc 21.0 - [id number] - [id number] Implanted:Qty: 1 on 12/27/2018 by Santiago Gill MD at OR [facility] Left: Eye [employer]USCH [employer] LOMB 03/01/2023 [id number] / [id number] / [id number] Lens Intraoc 21.5 - [id number] - [id number] Implanted:Qty: 1 on 01/15/2019 by Santiago Gill MD at OR [facility] Right: Eye BAUSCH & LOMB 08/01/2023 [id number] / [id number] / documented as of this encounter Visit Diagnoses Diagnosis Impacted cerumen of right ear- Primary Impacted cerumen documented in this encounter Advance Directives Healthcare Agents on File Name Relationship Healthcare Agent Relationshi p Communication Gene Sana Spouse Health Care Repr esentative (appointed verbally by patient or by statute hierarchy) Care Teams Shipwright Helper Relationship Specialty Start Date End Date Renny Abdi MD [address] [place] [address] PCP - General Family Medicine 10/06/14 documented as of this encounter
--- OUTSIDE RECORDS SUMMARY | 2024-01-23 18:33 | External Medical Summary | Summary of Care ---
Author Name Unknown Organization [facility] Address [address] [place] [address] Phone [phone] Care Team Providers Care Process Plant Operator Name Role Phone Renny Abdi MD Primary Care Provider + Reason for Visit * Reason Onset Date Comments Custodial Visit 10/10/2023 Encounter Details Date Type Department Care Team (Latest Contact Info) Description 10/10/2023 9:30 AM EST Custodial Visit [facility] [address] [place] [address] Kindra Pitts PA-C [address] [place] [address] Pain of right thumb*; Venous insufficiency; S/P TKR (total knee replacement), left Allergies No known active allergiesdocumented as of this encounter (statuses as of 10/10/2023) Medications Medication Sig Dispensed Refills Start Date End Date Status Insulin Syringe-Needle U-100 (BD INSULIN SYR ULTRAFINE II) 31G X 5/16" 1 ML MISCIndications:Type 2 diabetes mellitus with hemoglobin A1c goal of less than 8.0% ([facility]),DM type 2 nursing care encounter ([facility]) use with insulin twice daily [address] D[address] 5 09/11/2018 Active Acetaminophen 325 MG Oral Tablet Take 1 Tablet by mouth every 6 hours as needed for Pain. 0 Active nystatin 494836 UNIT/GM creamIndications:Tin ea corporis Apply To affected area for two weeks twice daily 45 g 2 12/06/2019 Active Additional Information Patient taking differently: BID PRN, Apply To affected area for two weeks twice daily, Informant: At Discharge, Reported on 04/07/2023 [employer] Radian6 Ultra Mini w/Device KitIndications:Type 2 diabetes mellitus with hemoglobin A1c goal of less than 8.0% ([facility]) Ck FS twice daily on insulin E [...] BEFORE BEDTIME. 180 Tablet 1 03/20/2023 Active [employer] Radian6 Rik Lancets 33GIndications:Type 2 diabetes mellitus with hemoglobin A1c goal of less than 8.0% ([facility]) Ck FS daily E11.9 100 Each 10 03/20/2023 Active Fluticasone Propionate 50 MCG/ACT Nasal Suspension (Flonase)Indications :Chronic rhinitis USE 1 SPRAY NASALLY EVERY DAY 32 g 3 03/20/2023 Active Trelegy Ellipta 100-62.5-25 MCG/ACT Aerosol Powder Breath Activated (Fluticasone-Umeclid inium-Vilanterol)Ind ications:COPD, group B, by GOLD 2017 classification ([facility]) Inhale 1 Puff by mouth in the morning. 180 Each 3 03/20/2023 Active Albuterol Sulfate (2.5 MG/3ML) 0.083% Inhalation Nebulization Solution Inhale 1 Vial via nebulizer. As directed, if needed, for shortness of breath or wheezing 0 Active OneTouch Ultra In Vitro Strip (Glucose Blood)Indications:Ty pe 2 diabetes mellitus with hemoglobin A1c goal of less than 8.0% ([facility]) Use as directed 2 times daily E11.9 [...] mellitus with peripheral vascular disease ([facility]) Take 1 Tablet by mouth at bedtime. 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 05/16/2019 Type 2 diabetes mellitus with peripheral vascula r disease 05/16/2019 Elevated diaphragm 05/16/2019 History of colon polyps 05/09/2019 BPPV (benign paroxysmal positional vertigo), rig ht 04/28/2018 Coronary artery disease invo lving [place] coronary artery of [place] heart without angina pectoris 04/28/2018 Overactive bladder 12/12/2017 DM type 2 with diabetic peripheral neuropathy History of breast cancer 10/28/2016 Overview: S/p lumpectomy, XRT Arthritis of hand, degenerative 05/19/2015 Dyslipidemia, goal LDL below 100 10/06/2014 Nephrolithiasis 07/27/2014 Panic attacks 07/27/2014 Type 2 diabetes mellitus wit h hemoglobin A1c goal of less than 8.0% 05/28/2014 Overview: 05/10/14 a1c 9.4 @[facility]. documented as of this encounter (statuses as of 10/10/2023) Resolved Problems Problem Noted Date Diagnosed Date [...] 12/24/201405/2019 Acute pyelonephritis 07/27/2014 016 Overview: 06/15 [facility] ER +sepss Blood cx neg D/c on omnicef. Well adult exam 05/28/2014 09/20/2023 Overview: 02/25/23 CTA chest-1cm scletotic T4 lesion BONE SCAN no uptake. Need eval fatty liver/ update EKG. [facility] did not have on file. 05/22 EEG 72h WNL. EMG--This electrodiagnostic study is suggestive of a mild right median neuropathy at the wrist (carpal tunnel syndrome). There is no convincing electrodiagnostic evidence of a large fiber polyneuropathy. There is no electrophysiological evidence of a myopathy. 04/18 [facility] cardiac cath moderate disease small vessels, not stentable. . +borderline stress echo. EF 55-60. Mild LVH. Gr byrd dys. 10/[address] 06/16 repeat mammo/US ordered 12/14 Dr Barragan. 2 tubular adenoma <1cm Daughter Jennifer Winkler 06/15 [facility] ER ?pyelo. +powell sens E Coli documented as of this encounter (statuses as of 10/10/2023) Immunizations Name Administration Dates Next Due Pneumococcal [...] [facility] [address] [place] [address] Renny Abdi MD [address] [place] [address] 01/23/2024 1:00 PM EDT Office Visit Neurology [facility] [place] [address] [place] [address] Nickolas [place], [address] [place] [address] Health Maintenance Due Date Last Done Comments [...] 02/10/2015 LUNG CANCER SCREENING - USE SMARTSET 50547 Completed 07/30/2021, 07/20/2020, 07/17/2019, Additional history exists GARDASIL-HPV IMMUNIZATION SERIES Aged Out No longer eligible based on patient's age to complete this topic MENINGOCOCCAL (MENACTRA/MENVEO) Aged Out No longer eligible based on patient's age to complete this topic documented as of this encounter Medical Devices Implanted Type Area Decorator Consultant Device Identifier Shelf Expiration Date Model / Serial / Lot Lens Intraoc 21.0 - [id number] - [id number] Implanted:Qty: 1 on 12/27/2018 by Santiago Gill MD at OR [facility] Left: Eye [employer] 03/01/2023 [id number] / [id number] / [id number] Lens Intraoc 21.5 - [id number] - [id number] Implanted:Qty: 1 on 01/15/2019 by Santiago Gill MD at OR [facility] Right: Eye [employer] 08/01/2023 [id number] / [id number] / documented as of this encounter Visit Diagnoses Diagnosis Pain of right thumb- Primary Pain in limb Venous insufficiency Unspecified venous (peripheral) insufficiency S/P TKR (total knee replacement), left documented in this encounter Advance Directives Healthcare Agents on File Name Relationship Healthcare Agent Relationshi p Communication Gene Randolph Spouse Health Care Repr esentative (appointed verbally by patient or by statute hierarchy) Care Teams Process Plant Operator Relationship Specialty Start Date End Date Renny Abdi MD [address] [place] [address] PCP - General Family Medicine 10/06/14 documented as of this encounter
--- OUTSIDE RECORDS SUMMARY | 2024-01-23 18:34 | External Medical Summary ---
Author Name Unknown Address Unknown Organization K01:[facility] [place] [address] [place] [address] Laboratory Report Ordering Provider Test Date Status MELISSA ATKINS 09/28/2023 13:38:06 Final Observation Date Value Abnormality Reference (Units) Status Source 09/28/2023 13:38:06 Semi-liquid Final Clostridioides difficile toxin and BI-[id number] strain DNA panel - Stool by KIMI with probe detection 09/28/2023 13:38:06 Negative. No C. difficile toxin B gene DNA detected by PCR (Amplified Probe). Negative Final Performing Location [facility] [address] [place] [address]
--- OUTSIDE RECORDS SUMMARY | 2024-01-23 18:34 | External Medical Summary | Continuity Of Care Document ---
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 08/21/2023 Active M62.81 Muscle weakness (generalized) 08/28/2023 Active R26.2 Difficulty in walking, not elsewhere classified 08/28/2023 Active Z74.9 Problem related to c are provider dependency, unspecified 08/28/2023 Active Z96.652 Presence of left artificial knee joint 08/21/20 Active VITAL SIGNS Date Time Diastolic blood pressure Systolic blood pressure Body height Body weight Temperature SpO2 Blood Sugar Pulse Respirations 128 39624 1 63.00 mm[Hg] - Sitting 122.00 mm[Hg] - Sitting 97.60 Oral 98.00 % 60.00/ min 128 21861 4 75.00 mm[Hg] - Sitting 120.00 mm[Hg] - Sitting 98.50 Ear 95.00 % 85.00/ min 128 41477 5 60.00 mm[Hg] - Sitting 109.00 mm[Hg] - Sitting 97.90 Oral 94.00 % 61.00/ min 129 72259 9 72.00 mm[Hg] - Sitting 126.00 mm[Hg] - Sitting 98.60 Ear 94.00 % 84.00/ min 129 63170 9 76.00 mm[Hg] - Sitting 131.00 mm[Hg] - Sitting 97.30 Ear 95.00 % 77.00/ min 130 89067 9 72.00 mm[Hg] - Sitting 113.00 mm[Hg] - Sitting 98.50 Ear 92.00 % 103.00 /min 130 29718 7 61.00 mm[Hg] - Sitting 114.00 mm[Hg] - Sitting 96.20 Oral 95.00 % 84.00/ min 130 78825 3 75.00 mm[Hg] - Sitting 116.00 mm[Hg] - Sitting 97.80 Oral 95.00 % 85.00/ min 201 70574 7 83.00 mm[Hg] - Sitting 127.00 mm[Hg] - Sitting 97.80 Ear 94.00 % 81.00/ min 201 36338 9 72.00 mm[Hg] - Sitting 113.00 mm[Hg] - Sitting 98.60 Oral 96.00 % 88.00/ min 202 90668 7 63.00 mm[Hg] - Sitting 89.00 mm[Hg] - Sitting 97.50 Ear 96.00 % 79.00/ min 202 38023 0 70.00 mm[Hg] - Sitting 110.00 mm[Hg] - Sitting 98.10 Oral 93.00 % 86.00/ min 203 32442 0 67.00 mm[Hg] - Sitting 126.00 mm[Hg] - Sitting 97.80 Ear 96.00 % 79.00/ min 203 72848 8 62.00 mm[Hg] - Sitting 124.00 mm[Hg] - Sitting 98.40 Oral 94.00 % 66.00/ min 204 66149 2 78.00 mm[Hg] - Sitting 117.00 mm[Hg] - Sitting 97.20 Oral 93.00 % 62.00/ min 204 92217 1 234[place]60 [place] [address] 204 96995 8 80.00 mm[Hg] - Sitting 146.00 mm[Hg] - Sitting 97.40 Oral 93.00 % 102.00 /min 205 74951 4 71.00 mm[Hg] - Sitting 113.00 mm[Hg] - Sitting 96.20 Oral 95.00 % 84.00/ min 205 11712 8 71.00 mm[Hg] - Sitting 113.00 mm[Hg] - Sitting 96.20 Rectal 84.00/ min 205 88158 9 232.00 [place] [address] 205 95536 0 81.00 mm[Hg] - Sitting 121.00 mm[Hg] - Sitting 98.40 Ear 95.00 % 83.00/ min 206 86054 9 68.00 mm[Hg] - Sitting 130.00 mm[Hg] - Sitting 98.20 Oral 93.00 % 77.00/ min 207 64787 5 71.00 mm[Hg] - Sitting 134.00 mm[Hg] - Sitting 98.20 Oral 99.00 % 88.00/ min 207 51490 3 76.00 mm[Hg] - Sitting 123.00 mm[Hg] - Sitting 98.00 Oral 98.00 % 60.00/ min 208 91455 2 57.00 mm[Hg] - Sitting 124.00 mm[Hg] - Sitting 97.10 Oral 91.00 % 72.00/ min 208 60462 0 75.00 mm[Hg] - Sitting 109.00 mm[Hg] - Sitting 96.10 Oral 93.00 % 81.00/ min 209 81939 0 75.00 mm[Hg] - Sitting 120.00 mm[Hg] - Sitting 97.70 Ear 99.00 % 91.00/ min 209 12843 5 54.00 mm[Hg] - Sitting 94.00 mm[Hg] - Sitting 98.00 Oral 94.00 % 83.00/ min 210 86006 2 70.00 mm[Hg] - Sitting 121.00 mm[Hg] - Sitting 97.20 Oral 93.00 % 81.00/ min 210 39075 3 86.00 mm[Hg] - Sitting 123.00 mm[Hg] - Sitting 98.30 Oral 94.00 % 99.00/ min 210 1 89.00/ min 211 58104 0 67.00 mm[Hg] - Sitting 116.00 mm[Hg] - Sitting 98.00 Ear 96.00 % 91.00/ min 211 64863 5 233.00 NI 211 29589 2 233.00 NI 212 61667 1 92.00 mm[Hg] - Sitting 134.00 mm[Hg] - Sitting 97.40 Oral 94.00 % 92.00/ min 212 95802 3 72.00 mm[Hg] - Sitting 118.00 mm[Hg] - Sitting 98.20 Oral 95.00 % 87.00/ min 213 40709 0 85.00 mm[Hg] - Sitting 137.00 mm[Hg] - Sitting 98.10 Ear 94.00 % 97.00/ min 214 14770 7 53.00 mm[Hg] - Sitting 99.00 mm[Hg] - Sitting 96.20 Ear 95.00 % 85.00/ min 215 88122 0 77.00 mm[Hg] - Sitting 113.00 mm[Hg] - Sitting 98.50 Ear 94.00 % 86.00/ min 216 62854 1 75.00 mm[Hg] - Sitting 111.00 mm[Hg] - Sitting 98.20 Oral 96.00 % 83.00/ min 217 06789 6 74.00 mm[Hg] - Sitting 119.00 mm[Hg] - Sitting 98.30 Ear 93.00 % 83.00/ min 218 93136 6 234.00 NI 218 04608 0 74.00 mm[Hg] - Sitting 102.00 mm[Hg] - Sitting 99.30 Oral 93.00 % 94.00/ min 07289 218 80885 9 99.50 Oral 32456 219 11599 1 67.00 mm[Hg] - Sitting 118.00 mm[Hg] - Sitting 98.90 Ear 94.00 % 86.00/ min 26030 220 09957 5 98.20 Oral 52056 220 57121 4 81.00 mm[Hg] - Sitting 124.00 mm[Hg] - Sitting 97.80 Oral 94.00 % 90.00/ min 11759 221 63322 7 83.00 mm[Hg] - Sitting 125.00 mm[Hg] - Sitting 98.00 Oral 95.00 % 87.00/ min 03424 222 95723 0 60.00 mm[Hg] - Sitting 110.00 mm[Hg] - Sitting 97.20 Ear 94.00 % 86.00/ min 68263 223 25724 5 97.70 Oral 89741 223 35251 2 67.00 mm[Hg] - Sitting 105.00 mm[Hg] - Sitting 97.20 Ear 76.00/ min 17421 224 11170 7 78.00 mm[Hg] - Sitting 126.00 mm[Hg] - Sitting 97.90 Oral 94.00 % 86.00/ min 04399 225 67123 5 234.00 NI 23647 225 39521 9 73.00 mm[Hg] - Sitting 111.00 mm[Hg] - Sitting 99.00 Ear 90.00 % 84.00/ min 47537 226 53777 0 70.00 mm[Hg] - Sitting 140.00 mm[Hg] - Sitting 99.10 Ear 94.00 % 102.00 /min 63951 227 52266 2 100.00 mg/dL 62125 227 45753 6 70.00 mm[Hg] - Sitting 106.00 mm[Hg] - Sitting 97.20 Ear 94.00 % 85.00/ min Immunizations Vaccine Date Status COVID-19 03/07/2023 Resident Refused Influenza 06/16/2022 Completed (PCV13)Pneumococcal 04/26/2016 Completed (PPSV23)Pneumococcal 07/08/2021 Completed Shingles 09/11/2014 Completed TDaP 05/28/2014 Completed
--- OUTSIDE RECORDS SUMMARY | 2024-01-23 18:34 | External Medical Summary | Continuity Of Care Document ---
Author Name Unknown Address [address] [place] [address] Organization [facility]) Care Team Providers Care Money Position Officer Name Role Phone Noah Montaño Primary Care Provider [phone] Problems Code Description Start Date End Date [...] tive I25.10 Atherosclerotic hear t disease of [place] coronary artery without angina pectoris 08/21/2023 Active [...] weight Temperature SpO2 Blood Sugar Pulse Respirations 129 33420 9 72.00 mm[Hg] - Sitting 126.00 mm[Hg] - Sitting 98.60 Ear 94.00 % 84.00/ min 129 35333 9 76.00 mm[Hg] - Sitting 131.00 mm[Hg] - Sitting 97.30 Ear 95.00 % 77.00/ min 130 80643 9 72.00 mm[Hg] - Sitting 113.00 mm[Hg] - Sitting 98.50 Ear 92.00 % 103.00 /min 130 36045 7 61.00 mm[Hg] - Sitting 114.00 mm[Hg] - Sitting 96.20 Oral 95.00 % 84.00/ min 130 64772 3 75.00 mm[Hg] - Sitting 116.00 mm[Hg] - Sitting 97.80 Oral 95.00 % 85.00/ min 201 71915 7 83.00 mm[Hg] - Sitting 127.00 mm[Hg] - Sitting 97.80 Ear 94.00 % 81.00/ min 201 77185 9 72.00 mm[Hg] - Sitting 113.00 mm[Hg] - Sitting 98.60 Oral 96.00 % 88.00/ min 202 70964 7 63.00 mm[Hg] - Sitting 89.00 mm[Hg] - Sitting 97.50 Ear 96.00 % 79.00/ min 202 38603 0 70.00 mm[Hg] - Sitting 110.00 mm[Hg] - Sitting 98.10 Oral 93.00 % 86.00/ min 203 72529 0 67.00 mm[Hg] - Sitting 126.00 mm[Hg] - Sitting 97.80 Ear 96.00 % 79.00/ min 203 40927 8 62.00 mm[Hg] - Sitting 124.00 mm[Hg] - Sitting 98.40 Oral 94.00 % 66.00/ min 204 81850 2 78.00 mm[Hg] - Sitting 117.00 mm[Hg] - Sitting 97.20 Oral 93.00 % 62.00/ min 204 14386 1 234.60 [place] [address]17 204 15470 8 80.00 mm[Hg] - Sitting 146.00 mm[Hg] - Sitting 97.40 Oral 93.00 % 102.00 /min 205 08199 4 71.00 mm[Hg] - Sitting 113.00 mm[Hg] - Sitting 96.20 Oral 95.00 % 84.00/ min 205 13056 8 71.00 mm[Hg] - Sitting 113.00 mm[Hg] - Sitting 96.20 Rectal 84.00/ min 205 25542 9 232.00 NI 205 94320 0 81.00 mm[Hg] - Sitting 121.00 mm[Hg] - Sitting 98.40 Ear 95.00 % 83.00/ min 206 57107 9 68.00 mm[Hg] - Sitting 130.00 mm[Hg] - Sitting 98.20 Oral 93.00 % 77.00/ min 207 71802 5 71.00 mm[Hg] - Sitting 134.00 mm[Hg] - Sitting 98.20 Oral 99.00 % 88.00/ min 207 71413 3 76.00 mm[Hg] - Sitting 123.00 mm[Hg] - Sitting 98.00 Oral 98.00 % 60.00/ min 208 93255 2 57.00 mm[Hg] - Sitting 124.00 mm[Hg] - Sitting 97.10 Oral 91.00 % 72.00/ min 208 79884 0 75.00 mm[Hg] - Sitting 109.00 mm[Hg] - Sitting 96.10 Oral 93.00 % 81.00/ min 209 08851 0 75.00 mm[Hg] - Sitting 120.00 mm[Hg] - Sitting 97.70 Ear 99.00 % 91.00/ min 209 38961 5 54.00 mm[Hg] - Sitting 94.00 mm[Hg] - Sitting 98.00 Oral 94.00 % 83.00/ min 210 05411 2 70.00 mm[Hg] - Sitting 121.00 mm[Hg] - Sitting 97.20 Oral 93.00 % 81.00/ min 210 46623 3 86.00 mm[Hg] - Sitting 123.00 mm[Hg] - Sitting 98.30 Oral 94.00 % 99.00/ min 30628 210 48890 1 89.00/ min 09304 211 62270 0 67.00 mm[Hg] - Sitting 116.00 mm[Hg] - Sitting 98.00 Ear 96.00 % 91.00/ min 89067 211 26706 5 233.00 NI 20104 211 58159 2 233.00 NI 24168 212 33090 1 92.00 mm[Hg] - Sitting 134.00 mm[Hg] - Sitting 97.40 Oral 94.00 % 92.00/ min 09423 99148 3 72.00 mm[Hg] - Sitting 118.00 mm[Hg] - Sitting 98.20 Oral 95.00 % 87.00/ min 38645 213 68464 0 85.00 mm[Hg] - Sitting 137.00 mm[Hg] - Sitting 98.10 Ear 94.00 % 97.00/ min 60642 214 19225 7 53.00 mm[Hg] - Sitting 99.00 mm[Hg] - Sitting 96.20 Ear 95.00 % 85.00/ min 48043 215 31535 0 77.00 mm[Hg] - Sitting 113.00 mm[Hg] - Sitting 98.50 Ear 94.00 % 86.00/ min 65304 216 89910 1 75.00 mm[Hg] - Sitting 111.00 mm[Hg] - Sitting 98.20 Oral 96.00 % 83.00/ min 57461 217 77944 6 74.00 mm[Hg] - Sitting 119.00 mm[Hg] - Sitting 98.30 Ear 93.00 % 83.00/ min 13729 218 81502 6 234.00 NI 94883 218 46444 0 74.00 mm[Hg] - Sitting 102.00 mm[Hg] - Sitting 99.30 Oral 93.00 % 94.00/ min 29146 218 33993 9 99.50 Oral 58903 219 81117 1 67.00 mm[Hg] - Sitting 118.00 mm[Hg] - Sitting 98.90 Ear 94.00 % 86.00/ min 24838 220 18812 5 98.20 Oral 91213 220 14019 4 81.00 mm[Hg] - Sitting 124.00 mm[Hg] - Sitting 97.80 Oral 94.00 % 90.00/ min 99293 221 61420 7 83.00 mm[Hg] - Sitting 125.00 mm[Hg] - Sitting 98.00 Oral 95.00 % 87.00/ min 50711 222 33962 0 60.00 mm[Hg] - Sitting 110.00 mm[Hg] - Sitting 97.20 Ear 94.00 % 86.00/ min 87702 223 25561 5 97.70 Oral 39362 223 05909 2 67.00 mm[Hg] - Sitting 105.00 mm[Hg] - Sitting 97.20 Ear 76.00/ min 11190 224 26158 7 78.00 mm[Hg] - Sitting 126.00 mm[Hg] - Sitting 97.90 Oral 94.00 % 86.00/ min 90411 225 66149 5 234.00 NI 78326 225 61226 9 73.00 mm[Hg] - Sitting 111.00 mm[Hg] - Sitting 99.00 Ear 90.00 % 84.00/ min 89536 226 72319 0 70.00 mm[Hg] - Sitting 140.00 mm[Hg] - Sitting 99.10 Ear 94.00 % 102.00 /min 02661 227 18908 2 100.00 mg/dL 71657 227 10529 6 70.00 mm[Hg] - Sitting 106.00 mm[Hg] - Sitting 97.20 Ear 94.00 % 85.00/ min 09014 228 86196 0 74.00 mm[Hg] - Sitting 123.00 mm[Hg] - Sitting 98.40 Ear 93.00 % 81.00/ min Immunizations Vaccine Date Status COVID-19 03/07/2023 Resident Refused Influenza 06/16/2022 Completed (PCV13)Pneumococcal 04/26/2016 Completed (PPSV23)Pneumococcal 07/08/2021 Completed Shingles 09/11/2014 Completed TDaP 05/28/2014 Completed
--- OUTSIDE RECORDS SUMMARY | 2024-01-23 18:34 | External Medical Summary | Summary of Care ---
Author Name Unknown Organization [facility] Address [address] [place] [address] Phone [phone] Care Team Providers Care Queen'S Counsel Name Role Phone Renny Abdi MD Primary Care Provider + Reason for Visit * Reason Onset Date Comments Longterm Visit 09/28/2023 Encounter Details Date Type Department Care Team (Latest Contact Info) Description 09/28/2023 6:00 AM EST Long[facility] Visit [facility] [address] [place] [address] Kindra Pitts PA-C [address] [place] [address] S/P TKR (total knee replacement), left*; Cognitive and behavioral changes; 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HCC); Diarrhea, unspecified type; Acute UTI; DM type 2 with diabetic peripheral neuropathy (HCC) Allergies No known active allergiesdocumented as of this encounter (statuses as of 09/28/2023) Medications Medication Sig Dispensed Refills Start Date [...] as needed for Pain. 0 Active nystatin 351356 UNIT/GM creamIndications:Tin ea corporis Apply To affected area for two weeks twice daily 45 g 2 12/06/2019 Active Additional Information Patient taking differently: BID PRN, Apply To affected area for two weeks twice daily, Informant: At Discharge, Reported on 04/07/2023 [employer] Ultra Mini w/Device KitIndications:Type 2 diabetes mellitus [...] BEFORE BEDTIME. 180 Tablet 1 03/20/2023 Active [employer] Delica Lancets 33GIndications:Type 2 diabetes mellitus with hemoglobin A1c goal of less than 8.0% (HCC) Ck FS daily E11.9 100 Each 10 03/20/2023 Active Fluticasone Propionate 50 MCG/ACT Nasal Suspension (Flonase)Indications :Chronic rhinitis USE 1 SPRAY NASALLY EVERY DAY 32 g 3 03/20/2023 Active Trelegy Ellipta 100-62.5-25 MCG/ACT Aerosol Powder Breath Activated (Fluticasone-Umeclid inium-Vilanterol)Ind ications:COPD, group B, by GOLD 2017 classification ([facility]) Inhale 1 Puff by mouth in the morning. 180 Each 3 03/20/2023 Active Albuterol Sulfate (2.5 MG/3ML) 0.083% Inhalation Nebulization Solution Inhale 1 Vial via nebulizer. As directed, if needed, for shortness of breath or wheezing 0 Active PipetteToAppGeek Ultra In Vitro Strip (Glucose Blood)Indications:Ty pe 2 diabetes mellitus with hemoglobin A1c goal of less than 8.0% ([facility]) Use as directed 2 times [...] mellitus with peripheral vascular disease ([facility]) Take 1 Tablet by mouth [...] as of this encounter (statuses as of 09/28/2023) Active Problems Problem Noted Date Diagnosed Date [...] classification 07/26 Overview: Noted on screening CT jail (current) use of insulin 05/16/2019 Type 2 diabetes mellitus with peripheral vascula r disease 05/16/2019 Elevated diaphragm 05/16/2019 History of colon polyps 05/09/2019 BPPV (benign paroxysmal positional vertigo), rig ht 04/28/2018 Coronary artery disease invo lving [place] coronary artery of [place] heart without angina pectoris 04/28/2018 Overactive bladder 12/12/2017 DM type 2 with diabetic peripheral neuropathy History of breast cancer 10/28/2016 Overview: S/p lumpectomy, XRT Arthritis of hand, degenerative 05/19/2015 Dyslipidemia, goal LDL below 100 10/06/2014 Nephrolithiasis 07/27/2014 Panic attacks 07/27/2014 Type 2 diabetes mellitus wit h hemoglobin A1c goal of less than 8.0% 05/28/2014 Overview: 05/10/14 a1c 9.4 @[facility]. documented as of this encounter (statuses as of 09/28/2023) Resolved Problems Problem Noted Date Diagnosed Date [...] 12/24/201405/2019 Acute pyelonephritis 07/27/2014 016 Overview: 06/15 [facility] ER +sepss Blood cx neg D/c on omnicef. Well adult exam 05/28/2014 09/20/2023 Overview: 5/27/23 CTA chest-1cm scletotic T4 lesion BONE SCAN no uptake. Need eval fatty liver/ update EKG. [facility] did not have on file. 05/22 EEG 72h WNL. EMG--This electrodiagnostic study is suggestive of a mild right median neuropathy at the wrist (carpal tunnel syndrome). There is no convincing electrodiagnostic evidence of a large fiber polyneuropathy. There is no electrophysiological evidence of a myopathy. 04/18 [facility] cardiac cath moderate disease small vessels, not stentable. . +borderline stress echo. EF 55-60. Mild LVH. Gr byrd dys. 10/[address] 06/16 repeat mammo/US ordered 12/14 Dr Barragan. 2 tubular adenoma <1cm Daughter Jennifer Winkler 06/15 [facility] ER ?pyelo. +powell sens E Coli documented as of this encounter (statuses as of 09/28/2023) Immunizations Name Administration Dates Next Due Pneumococcal [...] Progress Notes * Kindra Pitts PA-C - 09/28/2023 10:44 AM EST Name: Criselda Patrick Date of :1950 TRANSITION EVENT: Type: Non-applicable Date: September 28 Code Status: Full Code This note pertains to care provided at [facility]. Please see facility medical record for original note. This note is not to be edited or addended in [employer]. Editing or addending needs to occur in the facilities medical record. Subjective: Criselda Patrick is a 73 year old female. Patient being seen for several issues Chief Complaint Patient presents with Longterm Visit HPI: A care plan meeting was held with family regarding pt's significant behavioral changes including poor motivation to ambulate and perform her ADLs, very frequent use of call perkins making demands from staff and getting upset when call perkins is not answered in what pt considers a timely manner. Pt has been having BMs in her bed which is possibly behavioral in nature rather than functional. Pt hasbeen eaton. Flat affect. Pt was tried on SSRI (Lexapro 5mg daily ) but was discontinued at pt's insistence due to intolerance to this medication. Pt has myoclonic epilepsy and follows reguarly with Dr Del Castillo. Family has noted for at the past several months that pt is forgetting family member's names, having some cognitive decline which family thinks can be contributing to above issues. Pt had orthopedic followup yesterday and from surgical standpoint, no issues with her surgery. Following the care plan meeting, it appears that there was some progress made and understanding with pt and familyand staff. Pt appears more upbeat this morning. She seems to have a more positive attitude this morning. It appears she's willing to work with staff because at this time, pt cannot safely go home andmay need to consider staying in facility for LTC. Pt has been having non foul smelling diarrhea/loose stools. She is currently completing Ceftin for her UTI. She also is on Miralax 17 GM daily and Senna S one bid. No cramping, chills, fever, nausea or vomiting. No change in diet. No new medications except for Ceftin. CBC Results: Results for orders placed or [...] SODIUM - [facility] 139 07/05/2019 08:37 AM Chloride Results: Lab Results Component Value Date/Time CHLORIDE - [facility] 99 09/27/2023 05:44 AM CHLORIDE - [facility] 99 09/20/2023 05:29 AM CHLORIDE - [facility] 99 08/23/2023 05:29 AM CHLORIDE - [facility] 102 06/23/2020 09:38 AM CHLORIDE - [facility] 101 12/06/2019 10:27 AM CHLORIDE - [facility] 100 07/05/2019 08:37 AM TSH Results: Lab Results Component Value Date/Time TSH - [facility] 5.16 (H) 09/20/2023 05:29 AM TSH - [facility] 2.33 06/01/2015 10:56 AM Patient Active Problem List Diagnosis Code Type 2 diabetes mellitus with hemoglobin A1c goal of less than 8.0% ([facility]) E11.9 Nephrolithiasis N20.0 Panic attacks F41.0 Dyslipidemia, goal LDL below 100 E78.5 Arthritis of hand, degenerative M19.049 History of breast cancer Z85.3 DM type 2 with diabetic peripheral neuropathy ([facility]) E11.42 Overactive bladder N32.81 BPPV (benign paroxysmal positional vertigo), right H81.11 Coronary artery disease involving [place] coronary artery of [place] heart without angina pectoris I25.10 History of colon polyps Z86.010 jail (current) use of insulin ([facility]) Z79.4 Type 2 diabetes mellitus with peripheral vascular disease ([facility]) E11.51 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 COPD, group B, by GOLD 2017 classification ([facility]) J44.9 Gastroesophageal reflux disease without esophagitis K21.9 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[facility]) G40.409 BMI 40.0-44.9, adult ([facility]) Z68.41 Full code status Z78.9 Primary osteoarthritis of both knees M17.0 Lesion of bone of thoracic spine M89.9 Medical home patient encounter Z00.8 S/P TKR (total knee replacement), left Z96.652 Slow transit constipation K59.01 Venous insufficiency I87.2 Past Medical History: Diagnosis Date Acute pyelonephritis 07/27/201406/15 [facility] ER Arthritis of hand, degenerative 05/19/2015 BPPV (benign paroxysmal positional vertigo), right 04/28/2018 Coronary artery disease involving [place] coronary artery of [place] heart without angina pectoris 04/28/2018 DM type [...] Laterality Date CARDIAC CATH SCANNED RESULT 04/20/2018 [facility]. no severe CAD COLONOSCOPY, DIAGNOSTIC (RECTUM) 12/19/2014 adenomatous polyp, diverticulosis, repeat 5 yrs/[facility] MISCELLANEOUS ORDER ([facility] ONLY) Right 1997 lumpectomy right breast cancer MA ARTHRP KNE CONDYLE&PLATU MEDIAL&LAT COMPARTMENTS Left 07/28/2023 TKA left, Dr Taylor [facility] REMOVE CATARACT, INSERT LENS PROSTH Left 12/27/2018 left EXTRACAPSULAR CATARACT REMOVAL WITH INTRAOCULAR LENS performed by Santiago Gill MD at OR [facility] REMOVE CATARACT, INSERT LENS PROSTH Right 01/15/2019 right EXTRACAPSULAR CATARACT REMOVAL WITH INTRAOCULAR LENS performed by Santiago Gill MD at OR [facility] Family History Problem Relation Age of [...] Not on file Occupational History 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 Review of Systems: Constitutional ROS: No change in weight, No change in weakness, No change in fatigue and No fevers,sweats, or chills Eye ROS: No recent significant change in vision, No eye pain, redness, discharge and No diplopia Ear ROS: No ear pain, No drainage, No tinnitus or vertigo and No recent change in hearing Nose ROS: No nasal stuffiness and No [...] significant change in appetite, No nausea, vomiting, +diarrhea, no constipation and No dysphagia Musculoskeletal/Extremities ROS:see HPI Skin/Integumentary ROS: No rash and No itching Neurologic ROS: No headaches and + epilepsy Psychiatric ROS: see HPI Sleep: No sleep disorders OBJECTIVE: PHYSICALEXAM: I reviewed the most recent facilities vitals. General: alert, no distress, well nourished and well developed. Seemed more upbeat in mood today Eye Exam: Conjunctiva are pink and non-injected, [...] clear to auscultation Abdomen: abdomen soft, obese, +++bowel sounds and no masses or organomegaly Extremities: no edema, no clubbing, no cyanosis Neuro Exam: alert & oriented x 3 with fluent speech, no focal motor/sensory deficits Skin: skin color, texture, turgor are normal, no rashes or significant lesions ASSESSMENT: S/P TKR (total knee replacement), left (Primary) Reviewed orthopedic consult Continue to motivate pt to ambulate and gain ROM Cognitive and behavioral changes Discussion from care plan. Family concerned that there could be neurological cause of above Will refer back to Dr. Del Casitllo for above issues Psych consult in place. Pt is willing to have psych consult 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HCC) Continue Depakote 500mg BID Will continue to follow with Dr Del Castillo Diarrhea, unspecified type Will stop Miralax and Senna S for now Will check stools for C.diff Acute UTI Completing Ceftin BID course DM type 2 with diabetic peripheral neuropathy (HCC) Glucoses under excellent control Will decrease Metformin back to 500mg BID from 1000mg BID (diarrhea can be related to high metformin dose) Will continue Lantus 8 units HS and Lispro 4 units AC Will continue to monitor glucoses PLAN: I had a lengthy face to face conversation with pt and who was present. Discussed above issues with them. and Continue present medication(s):as ordered. Reviewed CBC, A1C, BMP Halfway Home Treatment Given: as above Electronically signed by: Kindra Pitts PA-C Over 45 minutes were spent in this visit more than half the time was spent counselling or coordinating care. documented in this encounter Plan of Treatment Upcoming Encounters Date Type Department Care Team (Late st Contact Info) Description 11/10/2023 9:20 AM EST Office Visit Family Practice [facility] [address] [place] [address] Renny Abdi MD [address] [place] [address] 01/23/2024 1:00 PM EDT Office Visit Neurology [facility] [address] [facility] [place] [address] Nickolas Del Castillo, DO [address] [facility] [place] [address] Health Maintenance Due Date Last Done Comments [...] 02/10/2015 LUNG CANCER SCREENING - USE SMARTSET [id number] Completed 07/30/2021, 07/20/2020, 07/17/2019, Additional history exists GARDASIL-HPV IMMUNIZATION SERIES Aged Out No longer eligible based on patient's age to complete this topic MENINGOCOCCAL (MENACTRA/MENVEO) Aged Out No longer eligible based on patient's age to complete this topic documented as of this encounter Medical Devices Implanted Type Area Safety Instructor Device Identifier Shelf Expiration Date Model / Serial / Lot Lens Intraoc 21.0 - [id number] - [id number] Implanted:Qty: 1 on 12/27/2018 by Santiago Gill MD at OR [facility] Left: Eye BAUSCH & LOMB 03/01/2023 [id number] / [id number] / [id number] Lens Intraoc 21.5 - [id number] - [id number] Implanted:Qty: 1 on 01/15/2019 by Santiago Gill MD at OR [facility] Right: Eye BAUSCH & LOMB 08/01/2023 [id number] / [id number] / documented as of this encounter Visit Diagnoses Diagnosis S/P TKR (total knee replacement), left- Primary Cognitive and behavioral changes Other signs and symptoms involving cognition 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 Diarrhea, unspecified type Acute UTI Urinary tract infection, site not specified DM type 2 with diabetic peripheral neuropathy (HCC) Type II or unspecified type diabetes mellitus with neurological manifestations, not stated as uncontrolled documented in this encounter Advance Directives Healthcare Agents on File Name Relationship Healthcare Agent Relationshi p Communication Gene Sana Spouse Health Care Repr esentative (appointed verbally by patient or by statute hierarchy) Care Teams Queen'S Counsel Relationship Specialty Start Date End Date Renny Abdi MD [address] [place] [address] PCP - General Family Medicine 10/06/14 documented as of this encounter
--- OUTSIDE RECORDS SUMMARY | 2024-01-23 18:34 | External Medical Summary | Summary of Care ---
Author Name Unknown Organization [facility] Address [address] [place] [address] Phone [phone] Care Team Providers Care Box Spring Frame Builder Name Role Phone Renny Abdi MD Primary Care Provider + Reason for Visit * Reason Comments Outpatient Testing Encounter Details Date Type Department Care Team (Late st Contact Info) Description 09/28/2023 1:40 PM EST Laboratory Laboratory [address] [place] [address] , Specimen Drop Off [address] [place] [address] Diarrhea Allergies No known active allergiesdocumented as of this encounter (statuses as of 09/28/2023) Medications Medication Sig Dispensed Refills Start Date End Date Status Insulin Syringe-Needle U-100 (BD INSULIN SYR ULTRAFINE II) 31G X 02/14" 1 ML MISCIndications:Type 2 diabetes mellitus with hemoglobin A1c goal of less than 8.0% ([facility]),DM type 2 nursing care encounter ([facility]) use with insulin twice daily [address] 09/11/2018 Active Acetaminophen 325 MG Oral Tablet Take 1 Tablet by mouth every 6 hours as needed for Pain. 0 Active nystatin 194420 UNIT/GM creamIndications:Tin ea corporis Apply To affected area for two weeks twice daily 45 g 2 12/06/2019 Active Additional Information Patient taking differently: BID PRN, Apply To affected area for two weeks twice daily, Informant: At Discharge, Reported on 04/07/2023 Oatmeal Ultra Mini w/Device KitIndications:Type 2 diabetes mellitus with hemoglobin A1c goal of less than 8.0% ([facility]) Ck FS twice daily on insulin [...] BEFORE BEDTIME. 180 Tablet 1 03/20/2023 Active Oatmeal Rik Alexander 33GIndications:Type 2 diabetes mellitus with hemoglobin A1c goal of less than 8.0% ([facility]) Ck FS daily E11.9 100 Each 10 03/20/2023 Active Fluticasone Propionate 50 MCG/ACT Nasal Suspension (Flonase)Indications :Chronic rhinitis USE 1 SPRAY NASALLY EVERY DAY 32 g 3 03/20/2023 Active Trelegy Ellipta 100-62.5-25 MCG/ACT Aerosol Powder Breath Activated (Fluticasone-Umeclid inium-Vilanterol)Ind ications:COPD, group B, by GOLD 2017 classification ([facility]) Inhale 1 Puff by mouth in [...] classification 07/26 Overview: Noted on screening CT extermination inspector (current) use of insulin 05/16/2019 Type 2 diabetes mellitus with peripheral vascula r disease 05/16/2019 Elevated diaphragm 05/16/2019 History of colon polyps 05/09/2019 BPPV (benign paroxysmal positional vertigo), rig ht 04/28/2018 Coronary artery disease invo lving [place] coronary artery of [place] heart without angina pectoris 04/28/2018 Overactive bladder 12/12/2017 DM type 2 with diabetic peripheral neuropathy History of breast cancer 10/28/2016 Overview: S/p lumpectomy, XRT Arthritis of hand, degenerative 05/19/2015 Dyslipidemia, goal LDL below 100 10/06/2014 Nephrolithiasis 07/27/2014 Panic attacks 07/27/2014 Type 2 diabetes mellitus wit h hemoglobin A1c goal of less than 8.0% 05/28/2014 Overview: 05/10/14 a1c 9.4 @[facility]. documented as of this encounter [...] 12/24/201405/2019 Acute pyelonephritis 07/27/2014 016 Overview: 06/15 [facility] ER +sepss Blood cx neg D/c on omnicef. Well adult exam 05/28/2014 09/20/2023 Overview: 02/25/23 CTA chest-1cm scletotic T4 lesion BONE SCAN no uptake. Need eval fatty liver/ update EKG. [facility] did not have on file. 05/22 EEG 72h WNL. EMG--This electrodiagnostic study is suggestive of a mild right median neuropathy at the wrist (carpal tunnel syndrome). There is no convincing electrodiagnostic evidence of a large fiber polyneuropathy. There is no electrophysiological evidence of a myopathy. 04/18 [facility] cardiac cath moderate disease small vessels, not stentable. . +borderline stress echo. EF 55-60. Mild LVH. Gr byrd dys. 10/[address] 06/16 repeat mammo/US ordered 12/14 Dr Barragan. 2 tubular adenoma <1cm Daughter Jennifer Winkler 06/15 [facility] ER ?pyelo. +powell sens E [...] 9:20 AM EST Office Visit Family Practice [facility] [address] [place] [place] [address] Renny Abdi MD [address] [place] [place] [address] 01/23/2024 1:00 PM EDT Office Visit Neurology [facility] [address] [facility] [place] [address] Nickolas Del Castillo, DO [address] [facility] [place] [address] Pending Results Name Type Priority Associated Diagnoses Date /Time CLOSTRIDIUM DIFFICILE, PCR Lab Routine Diarrhea 09/28/2023 1:38 PM EST Health Maintenance Due Date Last [...] 02/10/2015 LUNG CANCER SCREENING - USE SMARTSET [id number] Completed 07/30/2021, 07/20/2020, 07/17/2019, Additional history exists GARDASIL-HPV IMMUNIZATION SERIES Aged Out No longer eligible based on patient's age to complete this topic MENINGOCOCCAL (MENACTRA/MENVEO) Aged Out No longer eligible based on patient's age to complete this topic documented as of this encounter Medical Devices Implanted Type Area Bricklayer Device Identifier Shelf Expiration Date Model / Serial / Lot Lens Intraoc 21.0 - [id number] - [id number] Implanted:Qty: 1 on 12/27/2018 by Santiago Gill MD at OR [facility] Left: Eye BAUSCH & LOMB 03/01/2023 [id number] / [id number] / [id number] Lens Intraoc 21.5 - [id number] - [id number] Implanted:Qty: 1 on 01/15/2019 by Santiago Gill MD at OR [facility] Right: Eye BAUSCH & LOMB 08/01/2023 [id number] / [id number] / documented as of this encounter Visit Diagnoses Diagnosis Diarrhea documented in this encounter Additional Health Concerns Infection Onset Date Last Indicated Resolved Time C. difficile Rule-Out 09/28/2023 09/28/2023 documented as of this encounter Advance Directives Healthcare Agents on File Name Relationship Healthcare Agent Relationshi p Communication Gene Sana Spouse Health Care Repr esentative (appointed verbally by patient or by statute hierarchy) Care Teams Box Spring Frame Builder Relationship Specialty Start Date End Date Renny Abdi MD [address] [place] [address] PCP - General Family Medicine 10/06/14 documented as of this encounter
--- OUTSIDE RECORDS SUMMARY | 2024-01-23 18:34 | External Medical Summary | Summary of Care ---
Author Name Unknown Organization [facility] Address [address] [place] [address] Phone [phone] Care Team Providers Care Occupancy Specialist Name Role Phone Renny Abdi MD Primary Care Provider + Reason for Visit * Reason Onset Date Comments Care Home Visit 10/03/2023 Encounter Details Date Type Department Care Team (Latest Contact Info) Description 10/03/2023 6:00 AM EST Care Home Visit [facility] [address] [place], [place] [id number] Kindra Pitts PA-C [address] [place] [address] Neck pain*; DDD (degenerative disc disease), cervical; S/P TKR (total knee replacement), left; 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HCC); Lesion of bone of thoracic spine Allergies No known active allergiesdocumented as of this encounter (statuses as of 10/03/2023) Medications Medication Sig Dispensed Refills Start Date End Date Status Insulin Syringe-Needle U-100 (BD INSULIN SYR ULTRAFINE II) 31G X 5/16" 1 ML MISCIndications:Type 2 diabetes mellitus with hemoglobin A1c goal of less than 8.0% ([facility]),DM type 2 nursing care encounter ([facility]) use with insulin twice daily [address] 09/11/2018 Active Acetaminophen 325 MG Oral Tablet Take 1 Tablet by mouth every 6 hours as needed for Pain. 0 Active nystatin 680821 UNIT/GM creamIndications:Tin ea corporis Apply To affected area for two weeks twice daily 45 g 2 12/06/2019 Active Additional Information Patient taking differently: BID PRN, Apply To affected area for two weeks twice daily, Informant: At Discharge, Reported on 04/07/2023 Owlient Mini w/Device KitIndications:Type 2 diabetes mellitus with [...] BEFORE BEDTIME. 180 Tablet 1 03/20/2023 Active EloxxTouch Delica Lancets 33GIndications:Type 2 diabetes mellitus with hemoglobin A1c goal of less than 8.0% (HCC) Ck FS daily E11.9 100 Each 10 03/20/2023 Active Fluticasone Propionate 50 MCG/ACT Nasal Suspension (Flonase)Indications :Chronic rhinitis USE 1 SPRAY NASALLY EVERY DAY 32 g 3 03/20/2023 Active Trelegy Ellipta 100-62.5-25 MCG/ACT Aerosol Powder Breath Activated (Fluticasone-Umeclid inium-Vilanterol)Ind ications:COPD, group B, by GOLD 2017 classification ([facility]) Inhale 1 Puff by mouth in the morning. 180 Each 3 03/20/2023 Active Albuterol Sulfate (2.5 MG/3ML) 0.083% Inhalation Nebulization Solution Inhale 1 Vial via nebulizer. As directed, if needed, for shortness of breath or wheezing 0 Active OneTouch Ultra In Vitro Strip (Glucose Blood)Indications:Ty pe 2 diabetes mellitus with hemoglobin A1c goal of less than 8.0% ([facility]) Use as directed 2 times daily E11.9 [...] diabetes mellitus with peripheral vascular disease ([facility]) Take 1 Tablet by mouth at bedtime. [...] as of this encounter (statuses as of 10/03/2023) Active Problems Problem Noted Date Diagnosed Date [...] COPD, group B, by GOLD 2017 classification 10/25 /2019 Overview: Noted on screening CT halfway (current) use of insulin 05/16/2019 Type 2 diabetes mellitus with peripheral vascula r disease 05/16/2019 Elevated diaphragm 05/16/2019 History of colon polyps 05/09/2019 BPPV (benign paroxysmal positional vertigo), rig ht 04/28/2018 Coronary artery disease invo lving [place] coronary artery of [place] heart without angina pectoris 04/28/2018 Overactive bladder 12/12/2017 DM type 2 with diabetic peripheral neuropathy History of breast cancer 10/28/2016 Overview: S/p lumpectomy, XRT Arthritis of hand, degenerative 05/19/2015 Dyslipidemia, goal LDL below 100 10/06/2014 Nephrolithiasis 07/27/2014 Panic attacks 07/27/2014 Type 2 diabetes mellitus wit h hemoglobin A1c goal of less than 8.0% 05/28/2014 Overview: 05/10/14 a1c 9.4 @[facility]. documented as of this encounter (statuses as of 10/03/2023) Resolved Problems Problem Noted Date Diagnosed Date [...] 12/24/201405/2019 Acute pyelonephritis 07/27/2014 016 Overview: 06/15 [facility] ER +sepss Blood cx neg D/c on omnicef. Well adult exam 05/28/2014 09/20/2023 Overview: 02/25/23 CTA chest-1cm scletotic T4 lesion BONE SCAN no uptake. Need eval fatty liver/ update EKG. [facility] did not have on file. 05/22 EEG 72h WNL. EMG--This electrodiagnostic study is suggestive of a mild right median neuropathy at the wrist (carpal tunnel syndrome). There is no convincing electrodiagnostic evidence of a large fiber polyneuropathy. There is no electrophysiological evidence of a myopathy. 04/18 [facility] cardiac cath moderate disease small vessels, not stentable. . +borderline stress echo. EF 55-60. Mild LVH. Gr byrd dys. 10/[address] 06/16 repeat mammo/US ordered 12/14 Dr Barragan. 2 tubular adenoma <1cm Daughter Jennifer Winkler 06/15 [facility] ER ?pyelo. +powell sens E Coli documented as of this encounter (statuses as of 10/03/2023) Immunizations Name Administration Dates Next Due Pneumococcal [...] 9:20 AM EST Office Visit Family Practice [facility] [address] [place] [address] Renny Abdi MD [address] [place] [address] 01/23/2024 1:00 PM EDT Office Visit Neurology [facility] [address] [place] [address] Nickolas Del Castillo, [address] [place] [address] Health Maintenance Due Date Last Done Comments [...] 06/02, 12/21/2020, Additional history exists Albumin/Creatinine Ratio 07/08/202207/08/2 021, 06/23/2020, 07/05/2019, Additional history exists Diabetic Eye Exam 01/21/2023 01/21/2022, , 09/04/2018, Additional history exists DXA Scan 01/31/2023 02/01/2016 Influenza Vaccine (FLU shot) (#1) 2023 06/16/2022, 07/08/2021, 09/11/2015, Additional history exists DTaP,Tdap,and Td Vaccines (2 - Td or Tdap) 05/28/2024 05/28/2014 O2 ASSESSMENT COMPLETED IN PAST YEAR FOR COPD 07/11/2024 07/11/2023 GFR 09/27/2024 09/27/2023, 12, 08/23/2023, Additional history exists Alpha-1 Antitrypsin Completed 03/12/2020 Pneumococcal Vaccine: 65+ Years Completed 07/08/2021, 04/26/2016, 02/10/2015 LUNG CANCER SCREENING - USE SMARTSET 73095 Completed 07/30/2021, 07/20/2020, 07/17/2019, Additional history exists GARDASIL-HPV IMMUNIZATION SERIES Aged Out No longer eligible based on patient's age to complete this topic MENINGOCOCCAL (MENACTRA/MENVEO) Aged Out No longer eligible based on patient's age to complete this topic documented as of this encounter Medical Devices Implanted Type Area Primary Care Nurse Device Identifier Shelf Expiration Date Model / Serial / Lot Lens Intraoc 21.0 - [id number] - [id number] Implanted:Qty: 1 on 12/27/2018 by Santiago Gill MD at OR [facility] Left: Eye [employer]CH [employer] LOMB 03/01/2023 [id number] / [id number] / [id number] Lens Intraoc 21.5 - [id number] - [id number] Implanted:Qty: 1 on 01/15/2019 by Santiago Gill MD at OR [facility] Right: Eye [employer]CH [employer] LOMB 08/01/2023 [id number] / [id number] / documented as of this encounter Visit Diagnoses Diagnosis Neck pain- Primary Cervicalgia DDD (degenerative disc disease), cervical Degeneration of cervical intervertebral disc S/P TKR (total knee replacement), 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
--- OUTSIDE RECORDS SUMMARY | 2024-01-23 18:34 | External Medical Summary | Summary of Care ---
Author Name Unknown Organization [facility] Address [address] [place] [address] Phone [phone] Care Team Providers Care Laboratory Sample Carrier Name Role Phone Renny Abdi MD Primary Care Provider + Reason for Visit * Reason Comments Outpatient Testing Encounter Details Date Type Department Care Team (Late st Contact Info) Description 09/28/2023 1:40 PM EST Laboratory Laboratory [address] [place] [phone] , Specimen Drop Off [address] [place] [address] Diarrhea Allergies No known active allergiesdocumented as of this encounter (statuses as of 09/28/2023) Medications Medication Sig Dispensed Refills Start Date End Date Status Insulin Syringe-Needle U-100 (BD INSULIN SYR ULTRAFINE II) 31G X 02/14" 1 ML MISCIndications:Type 2 diabetes mellitus with hemoglobin A1c goal of less than 8.0% ([facility]),DM type 2 nursing care encounter ([facility]) use with insulin twice daily [address] 09/11/2018 Active Acetaminophen 325 MG Oral Tablet Take 1 Tablet by mouth every 6 hours as needed for Pain. 0 Active nystatin 439098 UNIT/GM creamIndications:Tin ea corporis Apply To affected area for two weeks twice daily 45 g 2 12/06/2019 Active Additional Information Patient taking differently: BID PRN, Apply To affected area for two weeks twice daily, Informant: At Discharge, Reported on 04/07/2023 iVengo Ultra Mini w/Device KitIndications:Type 2 diabetes mellitus with hemoglobin A1c goal of less than 8.0% ([facility]) Ck FS twice daily on insulin [...] BEFORE BEDTIME. 180 Tablet 1 03/20/2023 Active iVengo Rik Alexander 33GIndications:Type 2 diabetes mellitus with hemoglobin A1c goal of less than 8.0% ([facility]) Ck FS daily E11.9 100 Each 10 03/20/2023 Active Fluticasone Propionate 50 MCG/ACT Nasal Suspension (Flonase)Indications :Chronic rhinitis USE 1 SPRAY NASALLY EVERY DAY 32 g 3 03/20/2023 Active Trelegy Ellipta 100-62.5-25 MCG/ACT Aerosol Powder Breath Activated (Fluticasone-Umeclid inium-Vilanterol)Ind ications:COPD, group B, by GOLD 2017 classification ([facility]) Inhale 1 Puff by mouth in [...] classification 07/26 Overview: Noted on screening CT salvage determiner (current) use of insulin 05/16/2019 Type 2 diabetes mellitus with peripheral vascula r disease 05/16/2019 Elevated diaphragm 05/16/2019 History of colon polyps 05/09/2019 BPPV (benign paroxysmal positional vertigo), rig ht 04/28/2018 Coronary artery disease invo lving [place] coronary artery of [place] heart without angina pectoris 04/28/2018 Overactive bladder 12/12/2017 DM type 2 with diabetic peripheral neuropathy History of breast cancer 10/28/2016 Overview: S/p lumpectomy, XRT Arthritis of hand, degenerative 05/19/2015 Dyslipidemia, goal LDL below 100 10/06/2014 Nephrolithiasis 07/27/2014 Panic attacks 07/27/2014 Type 2 diabetes mellitus wit h hemoglobin A1c goal of less than 8.0% 05/28/2014 Overview: 05/10/14 a1c 9.4 @[facility]. documented as of this encounter [...] 12/24/201405/2019 Acute pyelonephritis 07/27/2014 016 Overview: 06/15 [facility] ER +sepss Blood cx neg D/c on omnicef. Well adult exam 05/28/2014 09/20/2023 Overview: 02/25/23 CTA chest-1cm scletotic T4 lesion BONE SCAN no uptake. Need eval fatty liver/ update EKG. [facility] did not have on file. 05/22 EEG 72h WNL. EMG--This electrodiagnostic study is suggestive of a mild right median neuropathy at the wrist (carpal tunnel syndrome). There is no convincing electrodiagnostic evidence of a large fiber polyneuropathy. There is no electrophysiological evidence of a myopathy. 04/18 [facility] cardiac cath moderate disease small vessels, not stentable. . +borderline stress echo. EF 55-60. Mild LVH. Gr byrd dys. 10/[address] 06/16 repeat mammo/US ordered 12/14 Dr Barragan. 2 tubular adenoma <1cm Daughter Jennifer Winkler 06/15 [facility] ER ?pyelo. +powell sens E [...] 9:20 AM EST Office Visit Family Practice [facility] [address] [place] [address] Renny Abdi MD [address] [place] [address] 01/23/2024 1:00 PM EDT Office Visit Neurology [facility] [address] [facility] [place] [address] Nickolas Del Castillo, DO [address] [facility] [place] [address] Pending Results Name Type Priority Associated Diagnoses [...] 02/10/2015 LUNG CANCER SCREENING - USE SMARTSET 80360 Completed 07/30/2021, 07/20/2020, 07/17/2019, Additional history exists GARDASIL-HPV IMMUNIZATION SERIES Aged Out No longer eligible based on patient's age to complete this topic MENINGOCOCCAL (MENACTRA/MENVEO) Aged Out No longer eligible based on patient's age to complete this topic documented as of this encounter Medical Devices Implanted Type Area Coremaker Bench Device Identifier Shelf Expiration Date Model / Serial / Lot Lens Intraoc 21.0 - [id number] - [id number] Implanted:Qty: 1 on 12/27/2018 by Santiago Gill MD at OR [facility] Left: Eye BAUSCH [employer] LOMB 03/01/2023 [id number] / [id number] / [id number] Lens Intraoc 21.5 - [id number] - [id number] Implanted:Qty: 1 on 01/15/2019 by Santiago Gill MD at OR [facility] Right: Eye BAUSCH [employer] LOMB 08/01/2023 [id number] / [id number] / documented as of this encounter Visit [...] patient or by statute hierarchy) Care Teams Laboratory Sample Carrier Relationship Specialty Start Date End Date Renny Abdi MD [address] [place] [address] PCP - General Family Medicine 10/06/14 documented as of this encounter
--- OUTSIDE RECORDS SUMMARY | 2024-01-23 18:35 | External Medical Summary | Continuity Of Care Document ---
Author Name Unknown Address [address] [place] [address] Organization [facility]) Care Team Providers Care Purchasing Department Clerk Name Role Phone Noah Montaño Primary Care Provider [phone] Problems Code Description Start Date End Date [...] tive I25.10 Atherosclerotic hear t disease of [place] coronary artery without angina pectoris 08/21/2023 Active [...] Temperature SpO2 Blood Sugar Pulse Respirations 128 58356 1 63.00 mm[Hg] - Sitting 122.00 mm[Hg] - Sitting 97.60 Oral 98.00 % 60.00/ min 128 43798 4 75.00 mm[Hg] - Sitting 120.00 mm[Hg] - Sitting 98.50 Ear 95.00 % 85.00/ min 128 09539 5 60.00 mm[Hg] - Sitting 109.00 mm[Hg] - Sitting 97.90 Oral 94.00 % 61.00/ min 129 84074 9 72.00 mm[Hg] - Sitting 126.00 mm[Hg] - Sitting 98.60 Ear 94.00 % 84.00/ min 129 62696 9 76.00 mm[Hg] - Sitting 131.00 mm[Hg] - Sitting 97.30 Ear 95.00 % 77.00/ min 130 21422 9 72.00 mm[Hg] - Sitting 113.00 mm[Hg] - Sitting 98.50 Ear 92.00 % 103.00 /min 130 94792 7 61.00 mm[Hg] - Sitting 114.00 mm[Hg] - Sitting 96.20 Oral 95.00 % 84.00/ min 130 66877 3 75.00 mm[Hg] - Sitting 116.00 mm[Hg] - Sitting 97.80 Oral 95.00 % 85.00/ min 201 73461 7 83.00 mm[Hg] - Sitting 127.00 mm[Hg] - Sitting 97.80 Ear 94.00 % 81.00/ min 201 41743 9 72.00 mm[Hg] - Sitting 113.00 mm[Hg] - Sitting 98.60 Oral 96.00 % 88.00/ min 202 41182 7 63.00 mm[Hg] - Sitting 89.00 mm[Hg] - Sitting 97.50 Ear 96.00 % 79.00/ min 202 90085 0 70.00 mm[Hg] - Sitting 110.00 mm[Hg] - Sitting 98.10 Oral 93.00 % 86.00/ min 203 64722 0 67.00 mm[Hg] - Sitting 126.00 mm[Hg] - Sitting 97.80 Ear 96.00 % 79.00/ min 203 47396 8 62.00 mm[Hg] - Sitting 124.00 mm[Hg] - Sitting 98.40 Oral 94.00 % 66.00/ min 204 20417 2 78.00 mm[Hg] - Sitting 117.00 mm[Hg] - Sitting 97.20 Oral 93.00 % 62.00/ min 204 69825 1 234[place]60 [place] [id number] 204 12000 8 80.00 mm[Hg] - Sitting 146.00 mm[Hg] - Sitting 97.40 Oral 93.00 % 102.00 /min 205 27911 4 71.00 mm[Hg] - Sitting 113.00 mm[Hg] - Sitting 96.20 Oral 95.00 % 84.00/ min 205 23278 8 71.00 mm[Hg] - Sitting 113.00 mm[Hg] - Sitting 96.20 Rectal 84.00/ min 205 40049 9 232[place]00 [place] [address] 205 83174 0 81.00 mm[Hg] - Sitting 121.00 mm[Hg] - Sitting 98.40 Ear 95.00 % 83.00/ min 206 54781 9 68.00 mm[Hg] - Sitting 130.00 mm[Hg] - Sitting 98.20 Oral 93.00 % 77.00/ min 207 66411 5 71.00 mm[Hg] - Sitting 134.00 mm[Hg] - Sitting 98.20 Oral 99.00 % 88.00/ min 207 94538 3 76.00 mm[Hg] - Sitting 123.00 mm[Hg] - Sitting 98.00 Oral 98.00 % 60.00/ min 208 86572 2 57.00 mm[Hg] - Sitting 124.00 mm[Hg] - Sitting 97.10 Oral 91.00 % 72.00/ min 208 60593 0 75.00 mm[Hg] - Sitting 109.00 mm[Hg] - Sitting 96.10 Oral 93.00 % 81.00/ min 209 14175 0 75.00 mm[Hg] - Sitting 120.00 mm[Hg] - Sitting 97.70 Ear 99.00 % 91.00/ min 209 69624 5 54.00 mm[Hg] - Sitting 94.00 mm[Hg] - Sitting 98.00 Oral 94.00 % 83.00/ min 210 29669 2 70.00 mm[Hg] - Sitting 121.00 mm[Hg] - Sitting 97.20 Oral 93.00 % 81.00/ min 210 94355 3 86.00 mm[Hg] - Sitting 123.00 mm[Hg] - Sitting 98.30 Oral 94.00 % 99.00/ min 210 1 89.00/ min 211 16329 0 67.00 mm[Hg] - Sitting 116.00 mm[Hg] - Sitting 98.00 Ear 96.00 % 91.00/ min 211 48202 5 233.00 NI 211 06122 2 233.00 NI 212 21196 1 92.00 mm[Hg] - Sitting 134.00 mm[Hg] - Sitting 97.40 Oral 94.00 % 92.00/ min 212 63387 3 72.00 mm[Hg] - Sitting 118.00 mm[Hg] - Sitting 98.20 Oral 95.00 % 87.00/ min 213 00193 0 85.00 mm[Hg] - Sitting 137.00 mm[Hg] - Sitting 98.10 Ear 94.00 % 97.00/ min 214 24460 7 53.00 mm[Hg] - Sitting 99.00 mm[Hg] - Sitting 96.20 Ear 95.00 % 85.00/ min 215 64065 0 77.00 mm[Hg] - Sitting 113.00 mm[Hg] - Sitting 98.50 Ear 94.00 % 86.00/ min 216 55543 1 75.00 mm[Hg] - Sitting 111.00 mm[Hg] - Sitting 98.20 Oral 96.00 % 83.00/ min 217 58095 6 74.00 mm[Hg] - Sitting 119.00 mm[Hg] - Sitting 98.30 Ear 93.00 % 83.00/ min 218 34135 6 234.00 NI 218 59198 0 74.00 mm[Hg] - Sitting 102.00 mm[Hg] - Sitting 99.30 Oral 93.00 % 94.00/ min 41089 218 98615 9 99.50 Oral 10116 219 09843 1 67.00 mm[Hg] - Sitting 118.00 mm[Hg] - Sitting 98.90 Ear 94.00 % 86.00/ min 76404 220 92732 5 98.20 Oral 55974 220 60729 4 81.00 mm[Hg] - Sitting 124.00 mm[Hg] - Sitting 97.80 Oral 94.00 % 90.00/ min 90733 221 41215 7 83.00 mm[Hg] - Sitting 125.00 mm[Hg] - Sitting 98.00 Oral 95.00 % 87.00/ min 50078 222 29452 0 60.00 mm[Hg] - Sitting 110.00 mm[Hg] - Sitting 97.20 Ear 94.00 % 86.00/ min 56765 223 40817 5 97.70 Oral 09006 223 37349 2 67.00 mm[Hg] - Sitting 105.00 mm[Hg] - Sitting 97.20 Ear 76.00/ min 61410 224 99559 7 78.00 mm[Hg] - Sitting 126.00 mm[Hg] - Sitting 97.90 Oral 94.00 % 86.00/ min 45011 225 99771 5 234.00 [place] [address] 225 94225 9 73.00 mm[Hg] - Sitting 111.00 mm[Hg] - Sitting 99.00 Ear 90.00 % 84.00/ min 39591 226 86124 0 70.00 mm[Hg] - Sitting 140.00 mm[Hg] - Sitting 99.10 Ear 94.00 % 102.00 /min 17813 227 40249 2 100.00 mg/dL 00564 227 44080 6 70.00 mm[Hg] - Sitting 106.00 mm[Hg] - Sitting 97.20 Ear 94.00 % 85.00/ min Immunizations Vaccine Date Status COVID-19 03/07/2023 Resident Refused Influenza 06/16/2022 Completed (PCV13)Pneumococcal 04/26/2016 Completed (PPSV23)Pneumococcal 07/08/2021 Completed Shingles 09/11/2014 Completed TDaP 05/28/2014 Completed
--- OUTSIDE RECORDS SUMMARY | 2024-01-23 18:35 | External Medical Summary ---
Author Name Unknown Address Unknown Organization [facility] [place] [address] Laboratory Report Ordering Provider Test Date Status MELISSA ATKINS 09/27/2023 05:44:00 Final Observation Date Value Abnormality Reference (Units ) Status BUN 09/27/2023 05:44:00 8 6-20 (mg/dL) Final Creatinine 09/27/2023 05:44:00 0.6 0.5-1.0 (mg/dL) Final Glomerular filtration rate/1.73 sq M.predicted [Volume Rate/Area] in Serum, Plasma or Blood by Creatinine-based formula (CKD-EPI) 09/27/2023 05:44:00 >90 >=60 (mL/min) Final eGFR is calculated based on the CKD-EPI 2020 equation SODIUM 09/27/2023 05:44:00 139 135-146 (m mol/L) Final Potassium 09/27/2023 05:44:00 3.6 3.5-5.1 (m mol/L) Final Cl 09/27/2023 05:44:00 99 98-107 (mm ol/L) Final CO2 09/27/2023 05:44:00 29 22-32 (mmo l/L) Final Anion gap 09/27/2023 05:44:00 11 7-15 (mmol /L) Final Glucose 09/27/2023 05:44:00 75 70-120 (mg /dL) Final Calcium 09/27/2023 05:44:00 8.2 Below low normal 8.4 -10.2 (mg/dL) Final Performing Location [facility] [place] [address]
--- OUTSIDE RECORDS SUMMARY | 2024-01-23 18:35 | External Medical Summary | Summary of Care ---
Author Name Unknown Organization [facility] Address [address] [place] [address] Phone [phone] Care Team Providers Care Director Of Regulatory Affairs Name Role Phone Renny Abdi MD Primary Care Provider + Reason for Visit * Reason Onset Date Comments Skilled Visit 09/27/2023 Encounter Details Date Type Department Care Team (Latest Contact Info) Description 09/27/2023 7:00 AM EST [facility] Visit [facility] [address] [place] [address] Kindra Pitts PA-C [address] [place] [address] Adult behavior problem*; Status post total left knee replacement; 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HCC); Type 2 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 0 Active nystatin 031969 UNIT/GM creamIndications:Tin ea corporis Apply To affected [...] B, by GOLD 2017 classification ([facility]) Inhale 1 Puff by mouth in the morning. 180 Each 3 03/20/2023 Active Albuterol Sulfate (2.5 MG/3ML) 0.083% Inhalation Nebulization Solution Inhale 1 Vial via nebulizer. 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 05/16/2019 Type 2 diabetes mellitus with peripheral vascula r disease 05/16/2019 Elevated diaphragm 05/16/2019 History of colon polyps 05/09/2019 BPPV (benign paroxysmal positional vertigo), rig ht 04/28/2018 Coronary artery disease invo lving [place] coronary artery of [place] heart without angina pectoris 04/28/2018 Overactive bladder [...] as of this encounter (statuses as of 09/27/2023) Resolved Problems Problem Noted Date Diagnosed Date [...] as of this encounter (statuses as of 09/27/2023) Immunizations Name Administration Dates Next Due Pneumococcal [...] Progress Notes * Kindra Pitts PA-C - 09/27/2023 1:50 PM EST Name: Criselda Patrick Date of :1950 TRANSITION EVENT: Type: Skilled visit Date: September 27 Code Status: Full Code This note pertains to care provided at [facility]. Please see facility medical record for original note. This note is not to be edited or addended in [employer]. Editing or addending needs to occur in the facilities medical record. Subjective: Criselda Patrick is a 73 year old female. Patient being seen for skilled visit Chief Complaint Patient presents with Skilled Visit HPI: pt is here for rehabilitation following left TKR 07/28/23 with rehabilitation stay of three weeks at [facility]. Due to poor motivation, she was transferred to [facility] for more rehabilitation. Overall pt has continued to be poorly motivated to ambulate and gain ROM of knee. We tried low dose SSRI (lexapro) but pt insisted that it be discontinued due to adverse effects. Pt states it made her drowsy and nauseated. Pt has been exhibiting increasing behavior issues and lately has been ringing the call perkins numerous times a day with demands and showing impatience when staff donot tend to her as quickly as she thinks they should. She rarely wants to ambulate. She is now having BMs in her bed. Staff state she now won't even raise her medicine cup with her medications to [facility], insisting that she needs help. Pt insists that she wants to go home but she cannot safely gohome due to her 's inability to safely tend to her needs. Pt states she is sad at times but denies being depressed. No suicidal thoughts or plans. She does state she is disappointed that she is not doing better than expected with her knee arthroplasty. Vital signs stable. Pt was treated thispast week for UTI which did not seem to improve pt's above behaviors. Staff has been developing plans of care to address this situation. 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 History of breast cancer Z85.3 DM type 2 with diabetic peripheral neuropathy ([facility]) E11.42 Overactive bladder N32.81 BPPV (benign paroxysmal positional vertigo), right H81.11 Coronary artery disease involving [place] coronary artery of [place] heart without angina pectoris I25.10 History of colon polyps Z86.010 longterm (current) use of insulin ([facility]) Z79.4 Type 2 diabetes mellitus with peripheral vascular disease ([facility]) E11.51 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 COPD, group B, by GOLD 2017 classification ([facility]) J44.9 Gastroesophageal reflux disease without esophagitis K21.9 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[facility]) G40.409 BMI 40.0-44.9, adult ([facility]) Z68.41 Full code status Z78.9 Primary osteoarthritis of both knees M17.0 Lesion of bone of thoracic spine M89.9 Medical home patient encounter Z00.8 S/P TKR (total knee replacement), left Z96.652 Slow transit constipation K59.01 Venous insufficiency I87.2 Past Medical History: Diagnosis Date Acute pyelonephritis 07/27/201406/15 [facility] ER Arthritis of hand, degenerative 05/19/2015 BPPV (benign paroxysmal positional vertigo), right 04/28/2018 Coronary artery disease involving [place] coronary artery of [place] heart without angina pectoris 04/28/2018 DM type [...] Laterality Date CARDIAC CATH SCANNED RESULT 04/20/2018 [facility]. no severe CAD COLONOSCOPY, DIAGNOSTIC (RECTUM) 12/19/2014 adenomatous polyp, diverticulosis, repeat 5 yrs/[facility] MISCELLANEOUS ORDER ([facility] ONLY) Right 1997 lumpectomy right breast cancer [place] ARTHRP KNE CONDYLE&PLATU MEDIAL&LAT COMPARTMENTS Left 07/28/2023 TKA left, Dr Taylor [facility] REMOVE CATARACT, INSERT LENS PROSTH Left 12/27/2018 left EXTRACAPSULAR CATARACT REMOVAL WITH INTRAOCULAR LENS performed by Santiago Gill MD at [facility] REMOVE CATARACT, INSERT LENS PROSTH Right 01/15/2019 right EXTRACAPSULAR CATARACT REMOVAL WITH INTRAOCULAR LENS performed by Santiago iGll MD at [facility] Family History Problem Relation Age of [...] Not on file Occupational History 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 Review of Systems: Constitutional ROS: No change in weight, complains of weakness, complains of fatigue and No fevers,sweats, or chills Nose [...] No headaches and No seizures Psychiatric ROS: see HPI Sleep: No sleep disorders OBJECTIVE: PHYSICALEXAM: I reviewed the most recent facilities vitals. General: alert, no distress, well nourished and well developed Head: Normocephalic, No masses, lesions, tenderness or abnormalities Eye Exam: Conjunctiva are pink and non-injected, [...] and no masses or organomegaly Extremities: no significant tenderness to palpation left knee no edema, no clubbing, no cyanosis Neuro Exam: alert & oriented x 3 with fluent speech, no focal motor/sensory deficits Skin: skin color, texture, turgor are normal, no rashes or significant lesions Psych: flat affect. Expressed thoughts/ideas well ASSESSMENT: Adult behavior problem (Primary) Increasing behaviors. Poorly motivated to improve Pt did express to me disappointment with her progress States she's "doing the best I can". Pt told me she is having a meeting with administrative and nursing staff to discuss these issues. Will place Psych consult for further recommendations Status post total left knee replacement Pain seems well controlled with Tylenol prn and Oxycodone prn. She does not appear to be requestingmuch Oxycodone 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HCC) Stable Continue Depakote 500mg BID Type 2 diabetes mellitus with peripheral vascular disease (HCC) Stable glucoses Continue Metformin 1000mg BID, Humalog 4 untis AC and Lantus 8 u HS PLAN: Reviewed CBC, BMP, Lytes and Continue present medication(s):as ordered. Alf Home Treatment Given: as above Electronically signed by: Kindra Pitts PA-C Over 45 minutes were spent in this visit more than half the time was spent counselling or coordinating care. documented in this encounter Plan of Treatment Upcoming Encounters Date Type Department Care Team (Late st Contact Info) Description 11/10/2023 9:20 AM EST Office Visit Family Practice [facility] [address] [place] [id number] Renny Abdi MD [address] [place] [id number] 01/23/2024 1:00 PM EDT Office Visit Neurology [facility] [address] [place] [address] Nickolas Del Castillo, DO [address] [place] [address] Health Maintenance Due Date Last Done Comments [...] 02/10/2015 LUNG CANCER SCREENING - USE SMARTSET 09660 Completed 07/30/2021, 07/20/2020, 07/17/2019, Additional history exists GARDASIL-HPV IMMUNIZATION SERIES Aged Out No longer eligible based on patient's age to complete this topic MENINGOCOCCAL (MENACTRA/MENVEO) Aged Out No longer eligible based on patient's age to complete this topic documented as of this encounter Medical Devices Implanted Type Area Mill Operator Head Device Identifier Shelf Expiration Date Model / Serial / Lot Lens Intraoc 21.0 - [id number] - [id number] Implanted:Qty: 1 on 12/27/2018 by Santiago Gill MD at [facility] Left: Eye [employer] 03/01/2023 [id number] / [id number] / [id number] Lens Intraoc 21.5 - [id number] - [id number] Implanted:Qty: 1 on 01/15/2019 by Santiago Gill MD at [facility] Right: Eye [employer] 08/01/2023 [id number] / [id number] / documented as of this encounter Visit Diagnoses Diagnosis Adult behavior problem- Primary Unspecified disturbance of conduct 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
[2024-01-23] MEDS ORDERED: NYSTATIN CR 15 GM TUBE EXT PRN (18:41)
[2024-01-23] MEDS ORDERED: GLUCOSE 40% GEL 15 GM TUBE PO PRN (18:41)
[2024-01-23] MEDS ORDERED: DEXTROSE 50% 50 ML SYRINGE IV PRN (18:41)
[2024-01-23] MEDS ORDERED: POLYETHYLENE (MIRALAX) 17 GM PACK PO PRN (18:41)
[2024-01-23] MEDS ORDERED: GLUCAGON FOR INJ 1 MG VIAL SQ PRN (18:41)
[2024-01-23] MEDS ORDERED: ALBUTEROL HFA 8 GM INHALER INH PRN (18:41)
[2024-01-23] MEDS ORDERED: ALBUTEROL 0.083% NEBU SOLN 3 ML VIAL INH PRN (18:41)
[2024-01-23] MEDS ORDERED: CARBOHYDRATES FOR HYPOGLYCEMIA PO PRN (18:41)
[2024-01-23] MEDS ORDERED: GLUCOSE 10 TAB/TUBE PO PRN (18:41)
[2024-01-23] MEDS ORDERED: DICLOFENAC SOD 1% GEL 100 GM TUBE EXT PRN (18:41)
[2024-01-23] MEDS ORDERED: ONDANSETRON INJ 2 MG/ML 2 ML VIAL IV PRN (18:41)
--- NOTE | 2024-01-23 19:12 | Magnetic Resonance Report ---
MR brain wo/w con HISTORY: 74 years-old Female AMS, h/o seizure d/o. alzheimers acutely altered mental status COMPARISON: Head CT of same day, brain MRI 02/28/2023 TECHNIQUE: Multiplanar multisequence MRI of the brain was obtained with and without IV contrast. FINDINGS: No restricted diffusion. Midline structures are unremarkable. No hemorrhage, midline shift, abnormal extra-axial collection, acute hydrocephalus or intra-axial mass. Cerebral venous sinuses and major ar terial flow voids appear patent. The skull, orbits and soft tissues are unremarkable. Prior bilateral lens repair. No acute seizure focus. No evidence of mesial temporal sclerosis. The study is motion d egraded. Involutional changes with persistent ventriculomegaly, likely on an ex vacuo basis. Moderate T2/FLAIR hyperintense foci throughout the white matter. No abnormal enhancement. IMPRESSION: 1. No acute intracranial abnormality. No acute or subacute infarct. 2. Involutional changes with chronic microvascular ischemic disease redemonstrated. 3. No abnormal enhancement. ACT 112: Negative or not required by law. The above report was generated using voice recognition software. It may contain grammatical, syntax o r spelling errors. Electronically signed by: Eulogio Houston M.D. 01/23/2024 7:10 PM
[2024-01-23] MEDS: INSULIN ASPART PER UNIT CHARGE SC SCH (20:11)
[2024-01-23] MEDS: LANTUS PER UNIT CHARGE SQ SCH (20:11)
[2024-01-23] MEDS: oxyCODONE HCL IR 5 MG TAB (IMMEDIATE RELEASE) PO PRN (20:13)
[2024-01-23] MEDS: ATORVASTATIN 40 MG TAB PO SCH (20:14)
[2024-01-23] MEDS: APIXABAN 5 MG TABLET PO SCH (20:14)
[2024-01-23] MEDS: DIVALPROEX DELAY RELEASE 500 MG TAB PO SCH (20:14)
[2024-01-23] MEDS: GABAPENTIN 300 MG CAP PO SCH (20:15)
[2024-01-23] MEDS: ADVANCED PROBIOTIC 625 MG CAPSULE PO SCH (20:15)
[2024-01-23] MEDS: PANTOprazole 40 MG TAB PO SCH (20:15)
[2024-01-23] MEDS: rOPINIRole HCL 1 MG TABLET PO SCH (20:16)
[2024-01-23] MEDS: LATANOPROST 0.005% OP SOLN 2.5 ML BTL OP SCH (20:16)
[2024-01-23] MEDS: POTASSIUM CHLORIDE CRTAB 20 MEQ TABCR PO SCH (20:16)
[2024-01-23] MEDS: MICONAZOLE NITRATE 2% CR 30 GM TUBE EXT SCH (20:17)
[2024-01-23] MEDS ORDERED: LORazepam 0.5 MG TAB PO PRN (21:00)
[2024-01-24 06:26] LABS: Hematocrit (blood only) 39.1 % (37.0-47.0); Mean Corpuscular Hemoglobin 26.4 pg (25.0-34.0); Mean Corpuscular Hgb Conc 33.2 g/dL (32.0-36.0); Mean Corpuscular Volume 79.5 fL (80.0-100.0); Mean Platelet Volume 9.5 fL (9.4-12.4); Platelet Count 147 K/uL (130-400); RDW Coefficient of Variation 16.9 % (11.5-14.5); RDW Standard Deviation 48.5 fL (36.4-46.3); Red Blood Count 4.92 M/uL (4.20-5.40); White Blood Count 8.03 K/ul (4.8-10.8)
[2024-01-24 06:39] LABS: BUN Creatinine Ratio 25.9 (10-20); Creatinine Clr Calc Pharmacy 93.1 ml/min; Est GFR (Non-African American) 91.4 ml/min
[2024-01-24 06:54] LABS: Thyroid Stimulating Hormone 1.862 uIu/ml (0.300-4.500)
[2024-01-24 07:01] LABS: Folate (Folic Acid),Ser orPlas > 22.30 ng/ml (>5.38)
[2024-01-24 07:02] LABS: Vitamin B12 837 pg/ml (180-914)
[2024-01-24] MEDS: ASPIRIN 81 MG ECTAB PO SCH (08:07)
[2024-01-24] MEDS: OXYBUTYNIN CHLORIDE XL 5 MG TABCR PO SCH (08:07)
[2024-01-24] MEDS: CHOLECALCIFEROL 25 MCG (1000 UNITS) TAB PO SCH (08:07)
[2024-01-24] MEDS: MULTIVITAMIN TAB PO SCH (08:07)
[2024-01-24] MEDS: CYANOCOBALAMIN (B-12) 100 MCG TABLET PO SCH (08:07)
[2024-01-24] MEDS: CETIRIZINE HCL 10 MG TABLET PO SCH (08:07)
[2024-01-24] MEDS: UMECLIDINIUM/VILANTEROL 62.5/25MCG 7 PUFFS/INHALER INH SCH (08:08)
[2024-01-24] MEDS: MELATONIN 3 MG TAB PO PRN (08:08)
[2024-01-24] MEDS: FLUTICASONE FUROATE 100MCG 14 PUFFS/INHALER INH SCH (08:12)
[2024-01-24] MEDS: FLUTICASONE PROPIONATE NA SPR 16 GM BTL NAE SCH (08:13)
--- NOTE | 2024-01-24 08:55 | Neurology Consultation ---
Date of Consultation January 24, 2024 Assessment & Plan (1) Encephalopathy: -Likely secondary to UTI in setting of dementia -continue Abx -Check B12 level, if <400 please start patient on replacement -Delirium precautions -avoid benzo's -Continue OP f/u with neurology (2) Myoclonic jerking: -patient does not have epilepsy, she has non-epileptic myoclonus -VPA level 34, not toxic -Ok to continue depakote at current dose (3) Leg weakness: -chronic gait dysfunction -possibly worse in setting of UTI causing pelvic discomfort -PT/OT Plan As above. Neurology will sign off, please call with questions Telehealth Consultation Telehealth Information Telehealth Information: I performed this visit using a real-time telehealth connection between my location and the patients location ([facility]). After connecting through interactive tele-video, patient was identified by name and date of and/or wristband check.Patient (or authorized healthcare retail wireless sales representative) was informed that this was a telemedicine visit and it was being conducted confidentially over secure lines. My office door was closed and no one else was present in the room with me.Patient (or authorized healthcare retail wireless sales representative) provided consent to proceed with the visit, expressed an understanding of privacy and security of the telemedicine visit, and gave permission to have a hospital retail wireless sales representative in the room in order to assist with the visit and to conduct portions of the visit, as needed. I informed the pat ient (or authorized healthcare retail wireless sales representative) that I reviewed their record and presented the opportunity for them to ask any questions regarding the visit today. The patient agreed to participate. History of Present Illness Reason for Consultation: Possible seizure, dementia, altered mental status Attending Physician: Dario Britton MD History of Present Illness 74 y/o F with PMHx of mild Alzheimers dementia, myoclonic jerks (non-epileptic) treated with Depakote, HTN, dyslipidemia, RLS, ataxia, COPD, and CAD. Patient presented to hospital with worsening confusion for 2 days and a reported episode of jerking of RLE and left face. Found to have abnormal UA and fever with hx of recurrent UTI's, now being empirically treated for UTI. She had head CT and brain MRI both of which are negative for acute findings. No family is present at bedside. Patient is a poor historian. She tells me that she woke up and didn't feel well, she felt like her legs wouldn't move. She cannot provide further details about her history, when questioned about having any shaking or abnormal movements she has no response. Allergies Allergy/AdvReac Type Severity Reaction Status Date / Time dog dander Allergy Unknown Sneezing, Verified 07/28/23 06:51 itchy eyes/throat grass pollen-perennial rye, Allergy Unknown Sneezing, Verified 07/28/23 06:51 standar itchy eyes/throat Home Medications Medication Instructions Recorded Confirmed Type Lactobacillus acidophilus 10 mg PO QAM 11/03/20 01/23/24 History acetaminophen 325 mg tablet 325 mg PO Q6 PRN Pain 11/03/20 01/23/24 History albuterol sulfate 90 mcg/actuation 2 puff inhalation Q4H PRN 11/03/20 01/23/24 History aerosol inhaler Shortness Of Breath atorvastatin 40 mg tablet 40 mg PO HS 11/03/20 01/23/24 History cetirizine 10 mg tablet (Zyrtec) 10 mg PO QAM 11/03/20 01/23/24 History fluticasone fur. 100 mcg-umeclid 1 inh inhalation QAM 11/03/20 01/23/24 History 62.5 mcg-vilant 25 mcg inhalat.powder (Trelegy Ellipta) fluticasone propionate 50 1 spray intranasal QAM 11/03/20 01/23/24 History mcg/actuation nasal spray,suspension ketoconazole 2 % topical cream 1 applic topical BID PRN Skin 11/03/20 01/23/24 History Irritation multivitamin 1 tab PO QAM 11/03/20 01/23/24 History nystatin 100,000 unit/gram topical 1 applic topical UD PRN Rash 11/03/20 01/23/24 History cream omeprazole 20 mg capsule,delayed 20 mg PO BID 11/03/20 01/23/24 History release oxybutynin chloride 10 mg 10 mg PO QAM 11/03/20 01/23/24 History tablet,extended release 24 hr albuterol sulfate 2.5 mg/3 mL 2.5 mg inhalation DIRECTED PRN 02/25/23 01/23/24 History (0.083 %) solution for nebulization Shortness Of Breath Or Wheezing cholecalciferol (vitamin D3) 25 25 mcg PO QAM 02/25/23 01/23/24 History mcg (1,000 unit) capsule (Vitamin D3) cyanocobalamin (vitamin B-12) 100 100 mcg PO QAM 02/25/23 01/23/24 History mcg tablet (Vitamin B-12) divalproex 500 mg tablet,delayed 500 mg PO BID 02/25/23 01/23/24 History release latanoprost 0.005 % eye drops 1 drp ophthalmic (eye) HS 02/25/23 01/23/24 History metformin 500 mg tablet,extended 1,000 mg PO BID 02/25/23 01/23/24 History release 24 hr ropinirole 1 mg tablet 1 mg PO HS 02/25/23 01/23/24 History gabapentin 300 mg capsule 300 mg PO HS 03/28/23 01/23/24 History diclofenac sodium 1 % topical gel 4 g EXT UD PRN Pain 07/06/23 01/23/24 History (Voltaren Arthritis Pain) lorazepam 1 mg tablet 0.5 mg PO DAILY PRN Anxiety 07/06/23 01/23/24 History aspirin 81 mg tablet,delayed 81 mg PO BID 42 days #0 tabs 07/31/23 01/23/24 Rx release apixaban 5 mg tablet (Eliquis) 5 mg PO BID 01/23/24 01/23/24 History furosemide 40 mg tablet 40 mg PO DAILY 01/23/24 01/23/24 History insulin glargine 100 unit/mL 8 unit subcut PM 01/23/24 01/23/24 History subcutaneous solution insulin lispro 100 unit/mL 4 unit subcut UD 01/23/24 01/23/24 History subcutaneous pen melatonin 5 mg tablet 5 mg PO HS PRN Insomnia 01/23/24 01/23/24 History oxycodone 5 mg tablet 5 mg PO Q6H PRN moderate to severe 01/23/24 01/23/24 History pain potassium chloride 20 mEq 20 meq PO BID 01/23/24 01/23/24 History tablet,extended release Patient History Medical History (Updated 01/24/24 @ 09:24 by Emery Blanco DO) Morbid obesity with BMI of 40.0-44.9, adult Myoclonic epilepsy Urinary incontinence Chronic Overactive bladder Glaucoma Claustrophobia Osteoarthritis of knees, bilateral CAD (coronary artery disease) Cardiac cath 04/2018- mild nonobstructive CAD BPPV (benign paroxysmal positional vertigo) History of sepsis Diabetes mellitus, type 2 History of melanoma back History of right breast cancer Dx 1997- chemo/radiation/surgery Anxiety Myoclonic jerking Dr. Del Castillo EEG 04/2020: "Normal" awake and sleep EEG. No evidence of focal slowing or epileptiform activity. Ataxia uses walker Hyperlipidemia Hypertension Chronic obstructive pulmonary disease Surgical History (Updated 01/23/24 @ 21:06 by Lizbeth Holliday PA-C) Status post left knee replacement (~07/2023) Family history of reaction to anesthesia Daughter PONV History of right breast biopsy malignant History of cholecystectomy History of appendectomy History of colonoscopy History of Mohs micrographic surgery for skin cancer History of lumpectomy of right breast History of tooth extraction History of bilateral cataract extraction History of cardiac cath ~2017 ([facility])- no stents Family History Brother Family hx of colon cancer Father Family hx of colon cancer Sister Family history of diabetes mellitus Daughter Family history of reaction to anesthesia nausea/vomiting/migraine Mother Family history of diabetes mellitus Brother Family history of diabetes mellitus Family hx colonic polyps Social History Smoking Status: Never smoker Second Hand Exposure: No; Do You Dip or Chew Tobacco: No; Hx Alcohol Use: No Hx Substance Use: No Preferred Language: Faroese Communication Ability: Impaired Communication Ability Comment: Confused Catalogue And Special 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 Attention impaired. Registration 3/3, recall 0/3. No aphasia. no Dysarthria. CN: PERRL, EOMI, Face symmetric, tongue midline Motor: BUE antigravity without obvious weakness, perhaps trace amount of asterixis; BLE does not lift against gravity, wiggles toes bilaterally Sensory: intact to light touch Coordination: no over ataxia Reflexes: cannot be assessed via telemedicine Gait: deferred Results & Data Vital Signs (Past 12 Hours) Vital Signs Temp Pulse Pulse Resp BP Pulse Ox O2 Del Method 01/24/24 08:23 Nasal Cannula 01/24/24 07:26 37.1 C 72 18 126/81 96 Nasal Cannula 01/24/24 03:08 37.1 C 73 18 137/80 97 Nasal Cannula 01/23/24 22:42 36.9 C 75 18 126/77 96 Nasal Cannula 01/23/24 22:03 61 O2 Flow Rate 01/24/24 08:23 1 01/24/24 07:26 1.0 01/24/24 03:08 2 01/23/24 22:42 2 01/23/24 22:03 Diagnostic Findings MRI Brain 01/22 IMPRESSION: 1. No acute intracranial abnormality. No acute or subacute infarct. 2. Involutional changes with chronic microvascular ischemic disease redemonstrated. 3. No abnormal enhancement.
[2024-01-24] MEDS ORDERED: NON-FORMULARY MEDICATION (Fluticasone-Umeclidin-Vilanter [Trelegy Ellipta] 100-62.5-25 mcg INH SCH (09:00)
[2024-01-24] MEDS: ACETAMINOPHEN 325 MG TAB PO PRN (11:02)
--- OUTSIDE RECORDS SUMMARY | 2024-01-24 11:32 | External Medical Summary | Summary of Care ---
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); Cerebral atrophy (HCC); Cerebellar atrophy (HCC); 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HCC) Allergies No known active allergiesdocumented as of this encounter (statuses as of 01/23/2024) Medications Medication Sig Dispensed Refills Start Date End Date Status Insulin Syringe-Needle U-100 (BD INSULIN SYR ULTRAFINE II) 31G X 5/16" 1 ML MISCIndications:Type 2 diabetes mellitus with hemoglobin A1c goal of less than 8.0% (HCC),DM type 2 nursing care encounter ([facility]) use with insulin twice daily [address] 09/11/2018 Active Acetaminophen 325 MG Oral Tablet Take 1 Tablet by mouth every 6 hours as needed for Pain. 0 Active nystatin 135964 UNIT/GM creamIndications:Tin ea corporis Apply To affected area for two weeks twice daily 45 g 2 12/06/2019 Active Additional Information Patient taking differently: BID PRN, Apply To affected area for two weeks twice daily, Informant: At Discharge, Reported on 04/07/2023 [employer] Ultra Mini w/Device KitIndications:Type 2 diabetes mellitus [...] BEFORE BEDTIME. 180 Tablet 1 03/20/2023 Active [employer] Rik Alexander 33GIndications:Type 2 diabetes mellitus with [...] than 8.0% ([facility]) Use as directed 2 times daily E11.9 Hx hypo/hyperglycemi a. 200 Strip 3 01/10/2024 Active documented as of this encounter (statuses as of 01/23/2024) Active Problems Problem Noted Date Diagnosed Date [...] classification 07/26 Overview: Noted on screening CT retirement (current) use of insulin 05/16/2019 Type 2 diabetes mellitus with peripheral vascula r disease 05/16/2019 Elevated diaphragm 05/16/2019 History of colon polyps 05/09/2019 BPPV (benign paroxysmal positional vertigo), rig ht 04/28/2018 Coronary artery disease invo lving [place] coronary artery of [place] heart without angina pectoris 04/28/2018 Overactive bladder 12/12/2017 DM type 2 with diabetic peripheral neuropathy History of breast cancer 10/28/2016 Overview: S/p lumpectomy, XRT Arthritis of hand, degenerative 05/19/2015 Dyslipidemia, goal LDL below 100 10/06/2014 Nephrolithiasis 07/27/2014 Panic attacks 07/27/2014 Type 2 diabetes mellitus wit h hemoglobin A1c goal of less than 8.0% 05/28/2014 Overview: 05/10/14 a1c 9.4 @[facility]. documented as of this encounter (statuses as of 01/23/2024) Resolved Problems Problem Noted Date Diagnosed Date [...] 12/24/201405/2019 Acute pyelonephritis 07/27/2014 016 Overview: 06/15 [facility] ER +sepss Blood cx neg D/c on omnicef. Well adult exam 05/28/2014 09/20/2023 Overview: 02/25/23 CTA chest-1cm scletotic T4 lesion BONE SCAN no uptake. Need eval fatty liver/ update EKG. [facility] did not have on file. 05/22 EEG 72h WNL. EMG--This electrodiagnostic study is suggestive of a mild right median neuropathy at the wrist (carpal tunnel syndrome). There is no convincing electrodiagnostic evidence of a large fiber polyneuropathy. There is no electrophysiological evidence of a myopathy. 04/18 [facility] cardiac cath moderate disease small vessels, not stentable. . +borderline stress echo. EF 55-60. Mild LVH. Gr byrd dys. 10/[address] 06/16 repeat mammo/US ordered 12/14 Dr Barragan. 2 tubular adenoma <1cm Daughter Jennifer Winkelr 06/15 [facility] ER ?pyelo. 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 Device Identifier Shelf Expiration Date Model / Serial / Lot Lens Intraoc 21.0 - [id number] - [id number] Implanted:Qty: 1 on 12/27/2018 by Santiago Gill MD at OR [facility] Left: Eye [employer] 03/01/2023 [id number] / [id number] / [id number] Lens Intraoc 21.5 - [id number] - [id number] Implanted:Qty: 1 on 01/15/2019 by Santiago Gill MD at OR [facility] Right: Eye [employer] 08/01/2023 [id number] / [id number] / documented as of this encounter Visit Diagnoses Diagnosis Altered mental status, unspecified altered mental status type- Primary Declining functional status Debility, unspecified 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) Cerebral atrophy (HCC) Cerebral degeneration, unspecified Cerebellar atrophy (HCC) Cerebral degeneration, unspecified 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
--- NOTE | 2024-01-24 12:12 | Electroencephalogram ---
EEG Procedure Note Date of Service January 24, 2024 Start / End Times Start Time: 06:17 End Time: 06:37 Referring Physician MARY Brizuela History A74 year old female with myoclonic epilepsy and cognitive decline. Admitted with altered mental status. EEG performed for evaluation of epileptiform activity. Home Medication List Medication Instructions Recorded Confirmed Type Lactobacillus acidophilus 10 mg PO QAM 11/03/20 01/23/24 History acetaminophen 325 mg tablet 325 mg PO Q6 PRN Pain 11/03/20 01/23/24 History albuterol sulfate 90 mcg/actuation 2 puff inhalation Q4H PRN 11/03/20 01/23/24 History aerosol inhaler Shortness Of Breath atorvastatin 40 mg tablet 40 mg PO HS 11/03/20 01/23/24 History cetirizine 10 mg tablet (Zyrtec) 10 mg PO QAM 11/03/20 01/23/24 History fluticasone fur. 100 mcg-umeclid 1 inh inhalation QAM 11/03/20 01/23/24 History 62.5 mcg-vilant 25 mcg inhalat.powder (Trelegy Ellipta) fluticasone propionate 50 1 spray intranasal QAM 11/03/20 01/23/24 History mcg/actuation nasal spray,suspension ketoconazole 2 % topical cream 1 applic topical BID PRN Skin 11/03/20 01/23/24 History Irritation multivitamin 1 tab PO QAM 11/03/20 01/23/24 History nystatin 100,000 unit/gram topical 1 applic topical UD PRN Rash 11/03/20 01/23/24 History cream omeprazole 20 mg capsule,delayed 20 mg PO BID 11/03/20 01/23/24 History release oxybutynin chloride 10 mg 10 mg PO QAM 11/03/20 01/23/24 History tablet,extended release 24 hr albuterol sulfate 2.5 mg/3 mL 2.5 mg inhalation DIRECTED PRN 02/25/23 01/23/24 History (0.083 %) solution for nebulization Shortness Of Breath Or Wheezing cholecalciferol (vitamin D3) 25 25 mcg PO QAM 02/25/23 01/23/24 History mcg (1,000 unit) capsule (Vitamin D3) cyanocobalamin (vitamin B-12) 100 100 mcg PO QAM 02/25/23 01/23/24 History mcg tablet (Vitamin B-12) divalproex 500 mg tablet,delayed 500 mg PO BID 02/25/23 01/23/24 History release latanoprost 0.005 % eye drops 1 drp ophthalmic (eye) HS 02/25/23 01/23/24 History metformin 500 mg tablet,extended 1,000 mg PO BID 02/25/23 01/23/24 History release 24 hr ropinirole 1 mg tablet 1 mg PO HS 02/25/23 01/23/24 History gabapentin 300 mg capsule 300 mg PO HS 03/28/23 01/23/24 History diclofenac sodium 1 % topical gel 4 g EXT UD PRN Pain 07/06/23 01/23/24 History (Voltaren Arthritis Pain) lorazepam 1 mg tablet 0.5 mg PO DAILY PRN Anxiety 07/06/23 01/23/24 History aspirin 81 mg tablet,delayed 81 mg PO BID 42 days #0 tabs 07/31/23 01/23/24 Rx release apixaban 5 mg tablet (Eliquis) 5 mg PO BID 01/23/24 01/23/24 History furosemide 40 mg tablet 40 mg PO DAILY 01/23/24 01/23/24 History insulin glargine 100 unit/mL 8 unit subcut PM 01/23/24 01/23/24 History subcutaneous solution insulin lispro 100 unit/mL 4 unit subcut UD 01/23/24 01/23/24 History subcutaneous pen melatonin 5 mg tablet 5 mg PO HS PRN Insomnia 01/23/24 01/23/24 History oxycodone 5 mg tablet 5 mg PO Q6H PRN moderate to severe 01/23/24 01/23/24 History pain potassium chloride 20 mEq 20 meq PO BID 01/23/24 01/23/24 History tablet,extended release Inpatient Medication List Acetaminophen (Acetaminophen 325 Mg Tab) 650 mg PO Q4H PRN PRN Reason: Pain or Fever Stop: 02/22/24 18:40 Last Admin: 01/24/24 11:02 Dose: 650 mg Documented By: RAJAT Apixaban (Apixaban 5 Mg Tablet) 5 mg PO BID [facility] Stop: 02/22/24 20:59 Last Admin: 01/24/24 08:07 Dose: 5 mg Documented By: Admin: 01/23/24 20:14 Dose: 5 mg Documented By: RIKA Aspirin (Aspirin 81 Mg Ectab) 81 mg PO DAILY [facility] Stop: 02/23/24 08:59 Last Admin: 01/24/24 08:07 Dose: 81 mg Documented By: RAJAT Atorvastatin Calcium (Atorvastatin 40 Mg Tab) 40 mg PO [facility] Stop: 02/22/24 20:59 Last Admin: 01/23/24 20:14 Dose: 40 mg Documented By: RIKA Cetirizine HCl (Cetirizine Hcl 10 Mg Tablet) 10 mg PO [facility] Stop: 02/23/24 08:59 Last Admin: 01/24/24 08:07 Dose: 10 mg Documented By: RAJAT Cyanocobalamin (Cyanocobalamin (B-12) 100 Mcg Tablet) 100 mcg PO [facility] Stop: 02/23/24 08:59 Last Admin: 01/24/24 08:07 Dose: 100 mcg Documented By: RAJAT Divalproex Sodium (Divalproex Delay Release 500 Mg Tab) 500 mg PO BID [facility] Stop: 02/22/24 20:59 Last Admin: 01/24/24 08:07 Dose: 500 mg Documented By: Admin: 01/23/24 20:14 Dose: 500 mg Documented By: RIKA Fluticasone Furoate (Fluticasone Furoate 100mcg 14 Puffs/Inhaler) 1 puffs INH [facility] Stop: 02/23/24 08:59 Last Admin: 01/24/24 08:12 Dose: 1 puffs Documented By: RAJAT Fluticasone Propionate (Fluticasone Propionate Na Spr 16 Gm Btl) 1 sprays [facility] Stop: 02/23/24 08:59 Last Admin: 01/24/24 08:13 Dose: 1 sprays Documented By: RAJAT Gabapentin (Gabapentin 300 Mg Cap) 300 mg PO [facility] Stop: 02/22/24 20:59 Last Admin: 01/23/24 20:15 Dose: 300 mg Documented By: RIKA Insulin Aspart (Insulin Aspart Per Unit Charge) 0 units SC [facility] Stop: 02/22/24 20:59 Last Admin: 01/24/24 08:14 Dose: Not Given Documented By: Admin: 01/23/24 20:11 Dose: Not Given Documented By: RIKA Insulin Glargine (Lantus Per Unit Charge) 4 units SQ BID [facility] Stop: 02/22/24 20:59 Last Admin: 01/24/24 08:16 Dose: 4 units Documented By: RAJAT Co-signed By: CAROLE Admin: 01/23/24 20:11 Dose: Not Given Documented By: RIKA Lactobacillus Acidophilus (Advanced Probiotic 625 Mg Capsule) 625 mg PO BID [facility] Stop: 02/22/24 20:59 Last Admin: 01/24/24 08:07 Dose: 625 mg Documented By: Admin: 01/23/24 20:15 Dose: 625 mg Documented By: RIKA Latanoprost (Latanoprost 0.005% Op Soln 2.5 Ml Btl) 1 drops OP HS NEELAM Stop: 02/22/24 20:59 Last Admin: 01/23/24 20:16 Dose: 1 drops Documented By: RIKA Melatonin (Melatonin 3 Mg Tab) 6 mg PO HSZ PRN PRN Reason: Sleep Stop: 02/22/24 19:01 Last Admin: 01/24/24 08:08 Dose: 6 mg Documented By: RAJAT Miconazole Nitrate (Miconazole Nitrate 2% Cr 30 Gm Tube) 1 appln EXT BID [facility] Stop: 02/22/24 20:59 Last Admin: 01/24/24 08:08 Dose: 1 appln Documented By: Admin: 01/23/24 20:17 Dose: 1 appln Documented By: RIKA Multivitamins (Multivitamin Tab) 1 tab PO QAM [facility] Stop: 02/23/24 08:59 Last Admin: 01/24/24 08:07 Dose: 1 tab Documented By: RAJAT Oxybutynin Chloride (Oxybutynin Chloride Xl 5 Mg Tabcr) 10 mg PO QAM [facility] Stop: 02/23/24 08:59 Last Admin: 01/24/24 08:07 Dose: 10 mg Documented By: RAJAT Oxycodone HCl (Oxycodone Hcl Ir 5 Mg Tab (Immediate Release)) 5 mg PO Q8H PRN PRN Reason: moderate to severe pain Stop: 02/06/24 18:40 Last Admin: 01/23/24 20:13 Dose: 5 mg Documented By: RIKA Pantoprazole Sodium (Pantoprazole 40 Mg Tab) 40 mg PO BID [facility] Stop: 02/22/24 20:59 Last Admin: 01/24/24 08:07 Dose: 40 mg Documented By: Admin: 01/23/24 20:15 Dose: 40 mg Documented By: RIKA Potassium Chloride (Potassium Chloride Crtab 20 Meq Tabcr) 20 meq PO BID NEELAM Stop: 02/22/24 20:59 Last Admin: 01/23/24 20:16 Dose: 20 meq Documented By: RIKA Ropinirole HCl (Ropinirole Hcl 1 Mg Tablet) 1 mg PO HS NEELAM Stop: 02/22/24 20:59 Last Admin: 01/23/24 20:16 Dose: 1 mg Documented By: RIKA Umeclidinium/Vilanterol (Umeclidinium/Vilanterol 62.5/25mcg 7 Puffs/Inhaler) 1 puffs INH QAM NEELAM Stop: 02/23/24 08:59 Last Admin: 01/24/24 08:08 Dose: 1 puffs Documented By: RAJAT Vitamin D (Cholecalciferol 25 Mcg (1000 Units) Tab) 25 mcg PO QAM NEELAM Stop: 02/23/24 08:59 Last Admin: 01/24/24 08:07 Dose: 25 mcg Documented By: RAJAT Discontinued Medications Fluconazole (Fluconazole 50 Mg Tab) 150 mg PO NOW ONE Stop: 01/23/24 15:07 Last Admin: 01/23/24 15:36 Dose: 150 mg Documented By: CHRISTIAN Sodium Chloride (Nss) 1,000 mls @ 100 mls/hr IV .Q10H NEELAM Stop: 01/24/24 00:29 Last Infusion: 01/24/24 01:44 Dose: Infused Documented By: Admin: 01/23/24 15:36 Dose: 100 mls/hr Documented By: CHRISTIAN Ceftriaxone Sodium 2,000 mg/ (Dextrose) 50 mls @ 100 mls/hr IV ONE ONE; Protocol Stop: 01/23/24 15:14 Last Infusion: 01/23/24 17:35 Dose: Infused Documented By: Admin: 01/23/24 15:36 Dose: 100 mls/hr Documented By: CHRISTIAN Lorazepam 0.5 mg/ Syringe 0.5 mls @ 2 mls/min IV ONE ONE Stop: 01/23/24 14:59 Last Admin: 01/23/24 16:53 Dose: 2 mls/min Documented By: LYNN Description This is a 21 electrode EEG with a single channel dedicated to limited EKG. The electrodes were placed in accordance with the International 10-20 system. REPORT: At the onset of the EEG the patient is drowsy. The background is symmetric and continuous. There is loss of the normal anterior to posterior gradient. The background consist of 5-6 theta activity with some intermixed delta activity. Photic does not induce any additional abnormalities. Interpretation IMPRESSION: This is an abnormal EEG in a patient with altered mentation due to generalized background slowing suggestive of non specific encephalopathy. No epileptiform discharges or electrographic seizures are recorded.
[2024-01-24] MEDS ORDERED: LORazepam 0.5 MG TAB PO PRN (12:44)
--- NOTE | 2024-01-24 12:46 | Hospitalist Progress Note ---
Date of Service January 24, 2024 Assessment & Plan (1) Acute alteration in mental status: (2) Myoclonic epilepsy: (3) Chronic obstructive pulmonary disease: (4) Hypertension: (5) Hyperlipidemia: (6) Ataxia: (7) Anxiety: (8) Diabetes mellitus, type 2: (9) CAD (coronary artery disease): (10) Morbid obesity with BMI of 40.0-44.9, adult: Plan 74 yo F resident of [facility] with a PMH of mild Alzheimer's dementia, DM II, dyslipidemia, COPD, nonobstructive CAD, morbid obesity, GERD, BPPV, ataxia, and other problems listed below who presents the ED for evaluation of progressively worsening confusion (for last several weeks) that has been rather abrupt for last 2 days. She is being managed for the following: Acute metabolic encephalopathy Likely multifactorial in setting of possible infection, ? seizure and worsening dementia iso Alzheimer's dementia. Neuro evaled, f/u w/ OP neurology. Leg weakness likely iso UIT causing pelvic discomfort. B12 level 837 and TSH 1.86. Delirium precaution. Avoid benzos. Speech eval for family's concern of swallowing ability. Myoclonic Epilepsy Follows with Dr. Del Castillo, ? 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 c/w depakote at current dose. H/o Alzheimer's dementia Follows with Dr. Del Castillo - previous brain MRI from January 2023: Chronic microvascular ischemic changes. Cerebellar atrophy Repeat brain MRI 01/22 without acute intracranial abnormality. No acute or subacute infarct. Involutional changes with chronic microvascular ischemic disease redemonstrated Neuro consulted as above - was due to see in clinic today but presented to ED instead given acute AMS PT/OT consult for decreased mobility, difficulty feeding herself, etc Family agreeable to palliative consult given progressive decline over past few months UTI H/o recurrent UTI, low grade fever. c/w rocephin 01/22, mentation slightly improving per pt's dtr at bedside. Follow urine culture DM II A1c of 6 in 12/23 Hold home agents Basal/bolus insulin while in-patient BSG AC HS Peripheral edema Takes daily lasix for edema Will hold due for now as patient appears dehydrated Reassess daily to resume it COPD Chronic, stable. Continue home inhalers, Duonebs QID PRN SOB or wheezing On supplemental O2 in ED, not on O2 at baseline, wean as tolerated CAD Continue aspirin, statin Mood disorder Ativan 0.5mg daily PRN for anxiety. Use sparingly given age, risk for confusion Chronic pain Reduced frequency of oxycodone to Q8H due to concern for polypharmacy RLS Continue Gabapentin HS Yeast infection Diflucan x 1, Monistat cream BID DVT Ppx: Eliquis Code status: FULL PCP: Jin Dispo: Admitted to PCU . PT/OT, CM to assist with dc plan. Admission and Anticipated Discharge Date Admission Date: January 23, 2024 Subjective Patient was seen and examined at bedside. Patient was lying semiupright in bed, on 1 L oxygen via nasal cannula, NAD, not in any acute distress. Patient's daughter was at bedside and patient's joined later during the examination. Both of them were updated on plan of care and answered all their questions. Patient is oriented x 2, denies any pain, reported having pain and burning with passing urine recently. Per patient's daughter at bedside, patient might have slightly improved mentation whitney compared to the decline that is happening since last 4 weeks. Patient's daughter is concerned about swallowing difficulty in the patient, will put her on clear liquid diet and consult speech. Physical Exam Physical Exam: GENERAL APPEARANCE: AxOx2, appears ill/sick/weak, no acute distress. HEENT: NC, AT. MMM. EOMI, clear conjunctiva, oropharynx clear. NECK: Supple without lymphadenopathy. No stiffness or restricted ROM. HEART: Normal rate and regular rhythm, normal S1/S1, no m/r/g LUNGS: CTAB, moving air well. No crackles or wheezes are heard. ABDOMEN: Soft, nontender, nondistended with good bowel sounds heard; EXTREMITIES: bilateral compression socks in place NEUROLOGICAL: Grossly nonfocal. Alert and oriented, moving all 4 extremities - no bilateral asymmetry noted. 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 CN not formally tested but appear grossly intact. Results & Data Results & Data Vital Signs (Past 12 Hours) Vital Signs Temp Pulse Resp BP Pulse Ox O2 Del Method O2 Flow Rate 01/24/24 08:23 Nasal Cannula 1 01/24/24 07:26 37.1 C 72 18 126/81 96 Nasal Cannula 1.0 01/24/24 03:08 37.1 C 73 18 137/80 97 Nasal Cannula 2
[2024-01-24] MEDS: cefTRIAXone SODIUM 2,000 MG in DEXTROSE 5 % MINI-B 50 ML IV SCH (15:50)
--- NOTE | 2024-01-24 16:09 | Electrocardiogram Report ---
Test Reason : Blood Pressure : / mmHG Vent. Rate : 089 BPM Atrial Rate : 089 BPM P-R Int : 158 ms QRS Dur : 094 ms QT Int : 384 ms P-R-T Axes : 041 -08 026 degrees QTc Int : 467 ms Normal sinus rhythm Poor R wave progression, consider anterior TN vs. lead placement vs. LVH Abnormal ECG When compared with ECG of 28-MAR-2023 11:24, Questionable change in initial forces of Lateral leads Confirmed by Vasu Lazcano ([id number]) on 01/24/2024 4:09:11 PM Referred By: Renny Abdi Confirmed By:Vasu Lazcano
--- NOTE | 2024-01-24 16:11 | Electrocardiogram Report ---
Test Reason : Blood Pressure : / mmHG Vent. Rate : 074 BPM Atrial Rate : 074 BPM P-R Int : 160 ms QRS Dur : 096 ms QT Int : 406 ms P-R-T Axes : 038 -07 012 degrees QTc Int : 450 ms Normal sinus rhythm Nonspecific T wave abnormality Abnormal ECG When compared with ECG of 28-MAR-2023 11:24, No significant change was found Confirmed by Vasu Lazcano ([id number]) on 01/24/2024 4:10:46 PM Referred By: Renny Abdi Confirmed By:Vasu Lazcano
--- NOTE | 2024-01-24 22:50 | Palliative Care Consultation ---
Date of Consultation January 24, 2024 Assessment & Plan (1) Weakness generalized: (2) Confusion: (3) Facial droop: (4) Garbled speech: (5) Impaired swallowing: (6) Malnutrition: (7) Discussion about advance care planning held with family member: See 60min ACP meeting held under separate note (8) Palliative care by specialist: Met with pt/family. Provided overview of Palliative Medicine, a subspecialty that provides specialized medical care for people living with a serious illness by offering a focus on quality of life. Palliative Medicine is often conflated with hospice: I advised patient/family that Palliative and hospice can be partners but we are not the same. It is important to understand the difference so that we may be informed, and not afraid. Palliative Medicine works to improve QOL through reduction of symptom burden/more control over their illness, for both the patient and family. Palliative medicine clinicians are board certified, specially-trained and another member of the patient's medical care team. We often provide an extra layer of support because our care is based on the needs of the patient, not the prognosis; as such, it's appropriate at any age/advancing stage of a serious illness and can be provided along with curative treatment. Palliative Medicine clinicians are also trained in advanced communication methodologies, to facilitate complex discussions about advanced illness planning, which are needed to help assure that the treatment choices match the patient's goals, aka delivering Goal Concordant care. Finally, we discussed that hospice is a visiting nurse service that focuses on care delivered at the very end of life for patients with terminal illness, with life expectancy less than 6 month. Plan * Criselda Patrick is not decisional and does not have decisional capacity for c omplex, medical decision making. * She is not and has one adult child, Yahaira, and a long time boyfriend, Addi. Per [place] 169, daughter is the legal NOK surrogate decision maker and Gene would be alternate if daughter declines to be decision maker or she instructs medical teams to direct decision making to Gene. * Yahaira states she and Gene plan to make decisions together for pt. She is l ooking into legal POA for patient and she is aware patient can not give consent for POA assignment and they would likely need to court appointed guardianship. * Extended ACP discussion outlined in separate note. * Neuro updated, they will contact daughter as she is requesting * Follow up meeting 1030am Monday. Family aware I am in Outpatient clinic on , returning to hospital on Monday. Thank you for allowing us to participate in the ongoing care of this patient. Please don't hesitate to call or page with any additional concerns. Dr. Kaela Zhang DNP Director, Palliative Care History of Present Illness Reason for Consultation: GO, dementia Attending Physician: Dario Britton MD History of Present Illness Criselda Patrick is a 74yo female admitted with progressive weakness, AMS and found to have UTI She is seen bedside with her daughter Yahaira and also her long time boyfriend, Gene Sana (he is not Yahaira's father.) Yahaira reports pt had a fall with fracture last fall, since her post operative time she has not been the same with progressive memory issues, falls, weakness, declining nutrition/impaired swallow, worsening cognition and a generalized decline. 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 Yahaira states there has been no "formal" testing to confirm Alz disease but states this is what they were told as a family. Yahaira tells me pt was initially admitted to [facility] assisted living but has been on a decline with decreasing mobility, more falls, malnutrition, increasing wounds/decubitus and is now bedbound and recovers full care. Criselda has been moved to the SNF division and can not longer remain in [facility]. Yahaira is not happy with Mom's care at [facility] and states "there hasn't been much 'skilled care' being given in their skilled care unit - she has all these wounds and literally just stuck in bed." Yahaira perceives she has not been getting straight answers or a cohesive opinion about Mom's medical issues, where did they start/how did it happen, what is prognosis and "why aren't we digging deeper/looking harder into figuring this out, she was fine before the surgery and this has just been so sudden!" Criselda is intermittently awake but drifts off easily. Speech is limited to a few understandable words but is otherwise garbled or nonsensical. Occasionally she will give a few 3-4 word sentence answers such as "I'm not going back to that place." She cannot provide HPI. She will open eyes to her name and cannot consistently follow instructions. Allergies Allergy/AdvReac Type Severity Reaction Status Date / Time dog dander Allergy Unknown Sneezing, Verified 07/28/23 06:51 itchy eyes/throat grass pollen-perennial rye, Allergy Unknown Sneezing, Verified 07/28/23 06:51 standar itchy eyes/throat Home Medications Medication Instructions Recorded Confirmed Type Lactobacillus acidophilus 10 mg PO QAM 11/03/20 01/23/24 History acetaminophen 325 mg tablet 325 mg PO Q6 PRN Pain 11/03/20 01/23/24 History albuterol sulfate 90 mcg/actuation 2 puff inhalation Q4H PRN 11/03/20 01/23/24 History aerosol inhaler Shortness Of Breath atorvastatin 40 mg tablet 40 mg PO HS 11/03/20 01/23/24 History cetirizine 10 mg tablet (Zyrtec) 10 mg PO QAM 11/03/20 01/23/24 History fluticasone fur. 100 mcg-umeclid 1 inh inhalation QAM 11/03/20 01/23/24 History 62.5 mcg-vilant 25 mcg inhalat.powder (Trelegy Ellipta) fluticasone propionate 50 1 spray intranasal QAM 11/03/20 01/23/24 History mcg/actuation nasal spray,suspension ketoconazole 2 % topical cream 1 applic topical BID PRN Skin 11/03/20 01/23/24 History Irritation multivitamin 1 tab PO QAM 11/03/20 01/23/24 History nystatin 100,000 unit/gram topical 1 applic topical UD PRN Rash 11/03/20 01/23/24 History cream omeprazole 20 mg capsule,delayed 20 mg PO BID 11/03/20 01/23/24 History release oxybutynin chloride 10 mg 10 mg PO QAM 11/03/20 01/23/24 History tablet,extended release 24 hr albuterol sulfate 2.5 mg/3 mL 2.5 mg inhalation DIRECTED PRN 02/25/23 01/23/24 History (0.083 %) solution for nebulization Shortness Of Breath Or Wheezing cholecalciferol (vitamin D3) 25 25 mcg PO QAM 02/25/23 01/23/24 History mcg (1,000 unit) capsule (Vitamin D3) cyanocobalamin (vitamin B-12) 100 100 mcg PO QAM 02/25/23 01/23/24 History mcg tablet (Vitamin B-12) divalproex 500 mg tablet,delayed 500 mg PO BID 02/25/23 01/23/24 History release latanoprost 0.005 % eye drops 1 drp ophthalmic (eye) HS 02/25/23 01/23/24 History metformin 500 mg tablet,extended 1,000 mg PO BID 02/25/23 01/23/24 History release 24 hr ropinirole 1 mg tablet 1 mg PO HS 02/25/23 01/23/24 History gabapentin 300 mg capsule 300 mg PO HS 03/28/23 01/23/24 History diclofenac sodium 1 % topical gel 4 g EXT UD PRN Pain 07/06/23 01/23/24 History (Voltaren Arthritis Pain) lorazepam 1 mg tablet 0.5 mg PO DAILY PRN Anxiety 07/06/23 01/23/24 History aspirin 81 mg tablet,delayed 81 mg PO BID 42 days #0 tabs 07/31/23 01/23/24 Rx release apixaban 5 mg tablet (Eliquis) 5 mg PO BID 01/23/24 01/23/24 History furosemide 40 mg tablet 40 mg PO DAILY 01/23/24 01/23/24 History insulin glargine 100 unit/mL 8 unit subcut PM 01/23/24 01/23/24 History subcutaneous solution insulin lispro 100 unit/mL 4 unit subcut UD 01/23/24 01/23/24 History subcutaneous pen melatonin 5 mg tablet 5 mg PO HS PRN Insomnia 01/23/24 01/23/24 History oxycodone 5 mg tablet 5 mg PO Q6H PRN moderate to severe 01/23/24 01/23/24 History pain potassium chloride 20 mEq 20 meq PO BID 01/23/24 01/23/24 History tablet,extended release Patient History Medical History (Updated 01/24/24 @ 22:54 by Kaela Zhang DNP) Palliative care by specialist Discussion about advance care planning held with family member Impaired swallowing Malnutrition Facial droop Garbled speech Confusion Weakness generalized Morbid obesity with BMI of 40.0-44.9, adult Myoclonic epilepsy Urinary incontinence Chronic Overactive bladder Glaucoma Claustrophobia Osteoarthritis of knees, bilateral CAD (coronary artery disease) Cardiac cath 04/2018- mild nonobstructive CAD BPPV (benign paroxysmal positional vertigo) History of sepsis Diabetes mellitus, type 2 History of melanoma back History of right breast cancer Dx 1997- chemo/radiation/surgery Anxiety Myoclonic jerking Dr. Del Castillo EEG 04/2020: "Normal" awake and sleep EEG. No evidence of focal slowing or epileptiform activity. Ataxia uses walker Hyperlipidemia Hypertension Chronic obstructive pulmonary disease Surgical History (Updated 01/23/24 @ 21:06 by Lizbeth Holliday PA-C) Status post left knee replacement (~07/2023) Family history of reaction to anesthesia Daughter PONV History of right breast biopsy malignant History of cholecystectomy History of appendectomy History of colonoscopy History of Mohs micrographic surgery for skin cancer History of lumpectomy of right breast History of tooth extraction History of bilateral cataract extraction History of cardiac cath ~2017 ([facility])- no stents Family History Brother Family hx of colon cancer Father Family hx of colon cancer Sister Family history of diabetes mellitus Daughter Family history of reaction to anesthesia nausea/vomiting/migraine Mother Family history of diabetes mellitus Brother Family history of diabetes mellitus Family hx colonic polyps Social History Smoking Status: Never smoker Second Hand Exposure: No; Do You Dip or Chew Tobacco: No; Hx Alcohol Use: No Hx Substance Use: No Preferred Language: Salvadorean Communication Ability: Impaired Communication Ability Comment: Confused 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 Beliefs That Will Affect Care: None Current [facility]uation[facility] Current Living Situation Comment: lives at home with Other Information That Helps Us Care for You: No Feels Safe at Home: Yes Safety Concerns: Feels Safe At This Time Assistive Devices: Bedside Commode Assistive Devices [facility]: [facility] Review of Systems Review of Systems: Unobtainable due to cognitive status Physical Exam Physical Exam: Resting semi reclined in bed with mild bitemp wasting noted Pupils are equal bilat, does not consistently track movement with her eyes Neck supple, no stridor, no thyromegaly Resp effort WAL at rest. Limited anterior chest exam with overall diminished breath sounds, no crackles or wheezing noted. S1S2, no obvious murmur Abd soft, obese, non tender, BS+ Generalized weakness with signif deficit on right more than left. 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 +1-2 BLE edema, non pitting Skin pale and warm, +diaphoretic Results & Data Vital Signs (Past 12 Hours) Vital Signs Temp Pulse Resp BP Pulse Ox O2 Del Method O2 Flow Rate 01/24/24 22:44 36.7 C 61 12 118/77 98 Nasal Cannula 1 01/24/24 20:00 36.7 C 69 16 132/82 96 Nasal Cannula 1 01/24/24 19:56 Nasal Cannula 1 01/24/24 15:32 37.1 C 62 16 124/80 94 Room Air 01/24/24 11:36 36.9 C 73 16 117/69 93 Room Air Laboratory Results 01/24/24 01/24/24 01/24/24 Range/Units 20:41 16:32 11:37 WBC (4.8-10.8) K/ul RBC (4.20-5.40) M/uL Hgb (12.0-16.0) g/dl Hct (37.0-47.0) % MCV (80.0-100.0) fL MCH (25.0-34.0) pg MCHC (32.0-36.0) g/dL RDW Std Deviation (36.4-46.3) fL RDW Coeff of [place] (11.5-14.5) % Plt Count (130-400) K/uL MPV (9.4-12.4) fL Immature Gran % (Auto) % Neut % (Auto) % Lymph % (Auto) % [place] % (Auto) % Eos % (Auto) % Baso % (Auto) % Neut # (Auto) (1.40-6.50) K/uL Lymph # (Auto) (1.20-3.40) K/uL [place] # (Auto) (0.11-0.59) K/uL Eos # (Auto) (0.00-0.50) K/uL Baso # (Auto) (0.00-0.20) K/uL Immature Gran # (Auto) (0.01-0.20) K/uL VBG pH (7.36-7.41) VBG pCO2 (38-50) mmHg VBG pO2 mmHg VBG HCO3 mmol/L VBG O2 Saturation % VBG Base Excess mEq/L Sodium (136-145) mmol/L Potassium (3.5-5.1) mmol/L Chloride (98-107) mmol/L Carbon Dioxide (21-32) mmol/L Anion Gap (3-11) BUN (6-23) mg/dl Creatinine (0.6-1.2) mg/dl Est Cr Clr Drug Dosing Est GFR ( Amer) ml/min Est GFR (Non-Af Amer) ml/min BUN/Creatinine Ratio (10-20) Glucose (70-99(Fasting)) mg/dl POC Glucose 123 H 96 140 H (70-99) mg/dl Lactate (0.4-2.0) mmol/L Calcium (8.6-10.3) mg/dl Iron (35-150) mcg/dl TIBC (250-450) mcg/dl Unsaturated IBC (155-355) mcg/dl Transferrin % Sat (15-50) % Total Bilirubin (0.2-1.0) mg/dl AST (13-39) U/L ALT (7-52) U/L Alkaline Phosphatase (34-104) U/L Total Protein (6.0-8.3) gm/dl Albumin (3.4-5.0) gm/dl Globulin (2.5-4.0) gm/dl Albumin/Globulin Ratio (0.9-2) Lipase (11-82) U/L Vitamin B12 (180-914) pg/ml Folate (>5.38) ng/ml TSH (0.300-4.500) uIu/ml Urine Color Urine Appearance (Clear) Urine pH (4.5-7.5) Ur Specific [place] (1.000-1.030) Urine Protein (Negative) Urine Glucose (UA) (Negative) Urine Ketones (Negative) Urine Blood (Negative) Urine Nitrite (Negative) Urine Bilirubin (Negative) Urine Urobilinogen (Negative) Ur Leukocyte Esterase (Negative) Urine WBC (Auto) (0-5) /hpf Urine RBC (Auto) (0-2) /hpf U Hyaline Cast (Auto) (0-2) /lpf U Epithel Cells (Auto) (0-2) /hpf Urine Bacteria (Auto) (None Seen) Calcium Oxalate Crystal (None Prsent) Urine Yeast (None Prsent) Nasal Screen MRSA (PCR) (Negative) Valproic Acid (50-100) mcg/ml Adenovirus (PCR) (NotDetected) B. pertussis DNA (PCR) (NotDetected) B.parapertussis DNA PCR (NotDetected) C. pneumoniae DNA (PCR) (NotDetected) Coronavirus OC43 (PCR) (NotDetected) Coronavirus HKU1 (PCR) (NotDetected) Coronavirus 229E (PCR) (NotDetected) SARS-CoV-2 (PCR) (NotDetected) Coronavirus NL63 (PCR) (NotDetected) Human Metapneumovir PCR (NotDetected) Influenza Type A (PCR) (NotDetected) Influenza Type B (PCR) (NotDetected) M. pneumoniae (PCR) (NotDetected) Parainfluenza 1 (PCR) (NotDetected) Parainfluenza 2 (PCR) (NotDetected) Parainfluenza 3 (PCR) (NotDetected) Parainfluenza 4 (PCR) (NotDetected) RSV (PCR) (NotDetected) Entero/Rhino (PCR) (NotDetected) 01/24/24 01/24/24 01/23/24 Range/Units 07:30 05:59 Unknown WBC 8.03 (4.8-10.8) K/ul RBC 4.92 (4.20-5.40) M/uL Hgb 13.0 (12.0-16.0) g/dl Hct 39.1 (37.0-47.0) % MCV 79.5 L (80.0-100.0) fL MCH 26.4 (25.0-34.0) pg MCHC 33.2 (32.0-36.0) g/dL RDW Std Deviation 48.5 H (36.4-46.3) fL RDW Coeff of [place] 16.9 H (11.5-14.5) % Plt Count 147 (130-400) K/uL MPV 9.5 (9.4-12.4) fL Immature Gran % (Auto) % Neut % (Auto) % Lymph % (Auto) % [place] % (Auto) % Eos % (Auto) % Baso % (Auto) % Neut # (Auto) (1.40-6.50) K/uL Lymph # (Auto) (1.20-3.40) K/uL [place] # (Auto) (0.11-0.59) K/uL Eos # (Auto) (0.00-0.50) K/uL Baso # (Auto) (0.00-0.20) K/uL Immature Gran # (Auto) (0.01-0.20) K/uL VBG pH (7.36-7.41) VBG pCO2 (38-50) mmHg VBG pO2 mmHg VBG HCO3 mmol/L VBG O2 Saturation % VBG Base Excess mEq/L Sodium 139 (136-145) mmol/L Potassium 4.0 (3.5-5.1) mmol/L Chloride 103 (98-107) mmol/L Carbon Dioxide 29 (21-32) mmol/L Anion Gap 7 (3-11) BUN 15 (6-23) mg/dl Creatinine 0.58 L (0.6-1.2) mg/dl Est Cr Clr Drug Dosing 93.1 Est GFR ( Amer) 106.0 ml/min Est GFR (Non-Af Amer) 91.4 ml/min BUN/Creatinine Ratio 25.9 H (10-20) Glucose 83 (70-99(Fasting)) mg/dl POC Glucose 80 (70-99) mg/dl Lactate (0.4-2.0) mmol/L Calcium 9.0 (8.6-10.3) mg/dl Iron 46 (35-150) mcg/dl TIBC 261 (250-450) mcg/dl Unsaturated IBC 215 (155-355) mcg/dl Transferrin % Sat 18 (15-50) % Total Bilirubin (0.2-1.0) mg/dl AST (13-39) U/L ALT (7-52) U/L Alkaline Phosphatase (34-104) U/L Total Protein (6.0-8.3) gm/dl Albumin (3.4-5.0) gm/dl Globulin (2.5-4.0) gm/dl Albumin/Globulin Ratio (0.9-2) Lipase (11-82) U/L Vitamin B12 837 (180-914) pg/ml Folate > 22.30 (>5.38) ng/ml TSH 1.862 (0.300-4.500) uIu/ml Urine Color Dark Yellow Urine Appearance Cloudy A (Clear) Urine pH 5.5 (4.5-7.5) Ur Specific [place] 1.026 (1.000-1.030) Urine Protein Trace H (Negative) Urine Glucose (UA) Negative (Negative) Urine Ketones 1+ H (Negative) Urine Blood 2+ H (Negative) Urine Nitrite Negative (Negative) Urine Bilirubin Negative (Negative) Urine Urobilinogen Negative (Negative) Ur Leukocyte Esterase Trace H (Negative) Urine WBC (Auto) 0-5 (0-5) /hpf Urine RBC (Auto) >20 H (0-2) /hpf U Hyaline Cast (Auto) 0-2 (0-2) /lpf U Epithel Cells (Auto) 3-5 H (0-2) /hpf Urine Bacteria (Auto) 1+ H (None Seen) Calcium Oxalate Crystal Present A (None Prsent) Urine Yeast Present A (None Prsent) Nasal Screen MRSA (PCR) Negative (Negative) Valproic Acid (50-100) mcg/ml Adenovirus (PCR) Not Detected (NotDetected) B. pertussis DNA (PCR) Not Detected (NotDetected) B.parapertussis DNA PCR Not Detected (NotDetected) C. pneumoniae DNA (PCR) Not Detected (NotDetected) Coronavirus OC43 (PCR) Not Detected (NotDetected) Coronavirus HKU1 (PCR) Not Detected (NotDetected) Coronavirus 229E (PCR) Not Detected (NotDetected) SARS-CoV-2 (PCR) Not Detected (NotDetected) Coronavirus NL63 (PCR) Not Detected (NotDetected) Human Metapneumovir PCR Not Detected (NotDetected) Influenza Type A (PCR) Not Detected (NotDetected) Influenza Type B (PCR) Not Detected (NotDetected) M. pneumoniae (PCR) Not Detected (NotDetected) Parainfluenza 1 (PCR) Not Detected (NotDetected) Parainfluenza 2 (PCR) Not Detected (NotDetected) Parainfluenza 3 (PCR) Not Detected (NotDetected) Parainfluenza 4 (PCR) Not Detected (NotDetected) RSV (PCR) Not Detected (NotDetected) Entero/Rhino (PCR) Not Detected (NotDetected) 01/23/24 01/23/24 01/23/24 Range/Units 20:05 15:16 11:30 WBC (4.8-10.8) K/ul RBC (4.20-5.40) M/uL Hgb (12.0-16.0) g/dl Hct (37.0-47.0) % MCV (80.0-100.0) fL MCH (25.0-34.0) pg MCHC (32.0-36.0) g/dL RDW Std Deviation (36.4-46.3) fL RDW Coeff of [place] (11.5-14.5) % Plt Count (130-400) K/uL MPV (9.4-12.4) fL Immature Gran % (Auto) % Neut % (Auto) % Lymph % (Auto) % [place] % (Auto) % Eos % (Auto) % Baso % (Auto) % Neut # (Auto) (1.40-6.50) K/uL Lymph # (Auto) (1.20-3.40) K/uL [place] # (Auto) (0.11-0.59) K/uL Eos # (Auto) (0.00-0.50) K/uL Baso # (Auto) (0.00-0.20) K/uL Immature Gran # (Auto) (0.01-0.20) K/uL VBG pH 7.48 H (7.36-7.41) VBG pCO2 38 (38-50) mmHg VBG pO2 71 mmHg VBG HCO3 28 mmol/L VBG O2 Saturation 94.6 % VBG Base Excess 4.6 mEq/L Sodium (136-145) mmol/L Potassium (3.5-5.1) mmol/L Chloride (98-107) mmol/L Carbon Dioxide (21-32) mmol/L Anion Gap (3-11) BUN (6-23) mg/dl Creatinine (0.6-1.2) mg/dl Est Cr Clr Drug Dosing Est GFR ( Amer) ml/min Est GFR (Non-Af Amer) ml/min BUN/Creatinine Ratio (10-20) Glucose (70-99(Fasting)) mg/dl POC Glucose 93 (70-99) mg/dl Lactate (0.4-2.0) mmol/L Calcium (8.6-10.3) mg/dl Iron (35-150) mcg/dl TIBC (250-450) mcg/dl Unsaturated IBC (155-355) mcg/dl Transferrin % Sat (15-50) % Total Bilirubin (0.2-1.0) mg/dl AST (13-39) U/L ALT (7-52) U/L Alkaline Phosphatase (34-104) U/L Total Protein (6.0-8.3) gm/dl Albumin (3.4-5.0) gm/dl Globulin (2.5-4.0) gm/dl Albumin/Globulin Ratio (0.9-2) Lipase (11-82) U/L Vitamin B12 (180-914) pg/ml Folate (>5.38) ng/ml TSH (0.300-4.500) uIu/ml Urine Color Urine Appearance (Clear) Urine pH (4.5-7.5) Ur Specific [place] (1.000-1.030) Urine Protein (Negative) Urine Glucose (UA) (Negative) Urine Ketones (Negative) Urine Blood (Negative) Urine Nitrite (Negative) Urine Bilirubin (Negative) Urine Urobilinogen (Negative) Ur Leukocyte Esterase (Negative) Urine WBC (Auto) (0-5) /hpf Urine RBC (Auto) (0-2) /hpf U Hyaline Cast (Auto) (0-2) /lpf U Epithel Cells (Auto) (0-2) /hpf Urine Bacteria (Auto) (None Seen) Calcium Oxalate Crystal (None Prsent) Urine Yeast (None Prsent) Nasal Screen MRSA (PCR) (Negative) Valproic Acid 66 (50-100) mcg/ml Adenovirus (PCR) (NotDetected) B. pertussis DNA (PCR) (NotDetected) B.parapertussis DNA PCR (NotDetected) C. pneumoniae DNA (PCR) (NotDetected) Coronavirus OC43 (PCR) (NotDetected) Coronavirus HKU1 (PCR) (NotDetected) Coronavirus 229E (PCR) (NotDetected) SARS-CoV-2 (PCR) (NotDetected) Coronavirus NL63 (PCR) (NotDetected) Human Metapneumovir PCR (NotDetected) Influenza Type A (PCR) (NotDetected) Influenza Type B (PCR) (NotDetected) M. pneumoniae (PCR) (NotDetected) Parainfluenza 1 (PCR) (NotDetected) Parainfluenza 2 (PCR) (NotDetected) Parainfluenza 3 (PCR) (NotDetected) Parainfluenza 4 (PCR) (NotDetected) RSV (PCR) (NotDetected) Entero/Rhino (PCR) (NotDetected) 01/23/24 Range/Units 10:23 WBC 9.81 (4.8-10.8) K/ul RBC 5.18 (4.20-5.40) M/uL Hgb 13.5 (12.0-16.0) g/dl Hct 41.1 (37.0-47.0) % MCV 79.3 L (80.0-100.0) fL MCH 26.1 (25.0-34.0) pg MCHC 32.8 (32.0-36.0) g/dL RDW Std Deviation 49.7 H (36.4-46.3) fL RDW Coeff of [place] 17.2 H (11.5-14.5) % Plt Count 177 (130-400) K/uL MPV 9.6 (9.4-12.4) fL Immature Gran % (Auto) 0.9 % Neut % (Auto) 74.2 % Lymph % (Auto) 16.4 % [place] % (Auto) 6.6 % Eos % (Auto) 1.2 % Baso % (Auto) 0.7 % Neut # (Auto) 7.27 H (1.40-6.50) K/uL Lymph # (Auto) 1.61 (1.20-3.40) K/uL [place] # (Auto) 0.65 H (0.11-0.59) K/uL Eos # (Auto) 0.12 (0.00-0.50) K/uL Baso # (Auto) 0.07 (0.00-0.20) K/uL Immature Gran # (Auto) 0.09 (0.01-0.20) K/uL VBG pH (7.36-7.41) VBG pCO2 (38-50) mmHg VBG pO2 mmHg VBG HCO3 mmol/L VBG O2 Saturation % VBG Base Excess mEq/L Sodium 138 (136-145) mmol/L Potassium 4.0 (3.5-5.1) mmol/L Chloride 103 (98-107) mmol/L Carbon Dioxide 27 (21-32) mmol/L Anion Gap 8 (3-11) BUN 19 (6-23) mg/dl Creatinine 0.66 (0.6-1.2) mg/dl Est Cr Clr Drug Dosing Not Reportable Est GFR ( Amer) 101.6 ml/min Est GFR (Non-Af Amer) 87.6 ml/min BUN/Creatinine Ratio 28.8 H (10-20) Glucose 119 H (70-99(Fasting)) mg/dl POC Glucose (70-99) mg/dl Lactate 1.5 (0.4-2.0) mmol/L Calcium 9.1 (8.6-10.3) mg/dl Iron (35-150) mcg/dl TIBC (250-450) mcg/dl Unsaturated IBC (155-355) mcg/dl Transferrin % Sat (15-50) % Total Bilirubin 0.4 (0.2-1.0) mg/dl AST 31 (13-39) U/L ALT 14 (7-52) U/L Alkaline Phosphatase 58 (34-104) U/L Total Protein 6.3 (6.0-8.3) gm/dl Albumin 3.3 L (3.4-5.0) gm/dl Globulin 3.0 (2.5-4.0) gm/dl Albumin/Globulin Ratio 1.1 (0.9-2) Lipase 21 (11-82) U/L Vitamin B12 (180-914) pg/ml Folate (>5.38) ng/ml TSH (0.300-4.500) uIu/ml Urine Color Urine Appearance (Clear) Urine pH (4.5-7.5) Ur Specific [place] (1.000-1.030) Urine Protein (Negative) Urine Glucose (UA) (Negative) Urine Ketones (Negative) Urine Blood (Negative) Urine Nitrite (Negative) Urine Bilirubin (Negative) Urine Urobilinogen (Negative) Ur Leukocyte Esterase (Negative) Urine WBC (Auto) (0-5) /hpf Urine RBC (Auto) (0-2) /hpf U Hyaline Cast (Auto) (0-2) /lpf U Epithel Cells (Auto) (0-2) /hpf Urine Bacteria (Auto) (None Seen) Calcium Oxalate Crystal (None Prsent) Urine Yeast (None Prsent) Nasal Screen MRSA (PCR) (Negative) Valproic Acid (50-100) mcg/ml Adenovirus (PCR) (NotDetected) B. pertussis DNA (PCR) (NotDetected) B.parapertussis DNA PCR (NotDetected) C. pneumoniae DNA (PCR) (NotDetected) Coronavirus OC43 (PCR) (NotDetected) Coronavirus HKU1 (PCR) (NotDetected) Coronavirus 229E (PCR) (NotDetected) SARS-CoV-2 (PCR) (NotDetected) Coronavirus NL63 (PCR) (NotDetected) Human Metapneumovir PCR (NotDetected) Influenza Type A (PCR) (NotDetected) Influenza Type B (PCR) (NotDetected) M. pneumoniae (PCR) (NotDetected) Parainfluenza 1 (PCR) (NotDetected) Parainfluenza 2 (PCR) (NotDetected) Parainfluenza 3 (PCR) (NotDetected) Parainfluenza 4 (PCR) (NotDetected) RSV (PCR) (NotDetected) Entero/Rhino (PCR) (NotDetected) Diagnostic Findings Chest X-Ray 01/23/24 10:15 XR chest 1V portable HISTORY: SOB, hypoxia COMPARISON: Chest 03/28/2023. FINDINGS: No pneumothorax. There are low lung volumes with mild elevation of the right hemidiaphragm. This remains unchanged. The heart remains mildly enlarged. There are calcifications within the aortic knob. There is mild central pulmonary vascular congestion without overt edema. Bibasilar linear densities are nonspecific but favor subsegmental atelectasis. Prior cholecystectomy. No acute fractures. IMPRESSION: 1. Cardiomegaly with mild congestive change. 2. Low lung volumes and bibasilar linear densities. These are nonspecific but favor subsegmental atelectasis. ACT 112: Negative or not required by law. Electronically signed by: Phu Almeida M.D. 01/23/2024 11:[address] 01/23/24 10:43 CT head/brain wo con CLINICAL HISTORY: 74 years-old Female with AMS, not responsive to verbal stimuli. Acutely altered mental status TECHNIQUE: Multiple axial CT images of the head were obtained without contrast. A dose lowering technique was utilized adhering to the principles of ALARA. CT DOSE: 625.8 mGy.cm COMPARISON: 02/25/2023 FINDINGS: No acute intracranial hemorrhage, midline shift, intracranial mass, hydrocephalus, territorial ischemia or abnormal extra-axial collection. Involutional changes with chronic microvascular ischemic disease. The calvarium is intact. Benign-appearing calcifications noted along the inner table of the skull within the middle cranial fossa on the left, unchanged. The paranasal sinuses, mastoid air cells, and middle ear cavities are clear. IMPRESSION: No acute intracranial abnormality. ACT 112: Negative or not required by law. The above report was generated using voice recognition software. It may contain grammatical, syntax or spelling errors. Electronically signed by: Eulogio Houston M.D. 01/23/2024 11:55 AM Brain MRI 01/23/24 14:18 MR brain wo/w con HISTORY: 74 years-old Female AMS, h/o seizure d/o. alzheimers acutely altered mental status COMPARISON: Head CT of same day, brain MRI 02/28/2023 TECHNIQUE: Multiplanar multisequence MRI of the brain was obtained with and without IV contrast. FINDINGS: No restricted diffusion. Midline structures are unremarkable. No hemorrhage, midline shift, abnormal extra-axial collection, acute hydrocephalus or intra- axial mass. Cerebral venous sinuses and major arterial flow voids appear patent. The skull, orbits and soft tissues are unremarkable. Prior bilateral lens repai r. No acute seizure focus. No evidence of mesial temporal sclerosis. The study is motion degraded. Involutional changes with persistent ventriculomegaly, likely on an ex vacuo basis. Moderate T2/FLAIR hyperintense foci throughout the white matter. No abnormal enhancement. IMPRESSION: 1. No acute intracranial abnormality. No acute or subacute infarct. 2. Involutional changes with chronic microvascular ischemic disease redemonstrated. 3. No abnormal enhancement. ACT 112: Negative or not required by law. The above report was generated using voice recognition software. It may contain grammatical, syntax or spelling errors. Electronically signed by: Eulogio Houston M.D. 01/23/2024 7:10 PM PG Care Time/CCT Total # of Minutes Spent Total Time Spent with Patient: Total time spent is greater than 50% in coordination of care (as documented) at patient's floor/unit and/or counseling patient: I spent 90 minutes overall addressing this case: 25 min in medical data review/discussion with referring provider(s) and/or preparation for the visit 30 min in direct interaction with the patient/exam see separate note min in Advance Care Planning/Goals of Care discussions as detailed above in note (must be >16min) 15 min in subsequent review and synthesis of assessment and plan 20 min communicating with other providers regarding the patient's case: primary, neuro, nursing Prolonged Care Time Prolonged Care Time: [place] [address] [place]/OBS CONSULT LVL 5,80M Patient Type New History Comprehensive Exam Comprehensive Medical Decision Making High Complexity Diagnoses Weakness generalized R53.1 Confusion R41.0 Facial droop R29.810 Garbled speech R47.89 Impaired swallowing R13.10 Malnutrition E46 Discussion about advance care planning held with family member Z71.0 Palliative care by specialist Z51.5 Additional Codes Prolonged Care Time - Prolonged Care Time: Yes ([id number])
--- NOTE | 2024-01-24 23:42 | Palliative Family Discussion ---
Date of Service January 24, 2024 Patient Directed Conference Time of [id number] Participants: Kaela Zhang DNP Patient participation: lacks capacity Patient Support System: daughter and patient's long time boyfriend Other Healthcare Provider Participation: None Meeting Location: bedside Advanced Directive available:NONE The patient's surrogate medical decision maker participated: Per ACt 169, SDM is daughter who was present A family meeting was held for CRISELDA PATRICK. This meeting was necessary for determining the appropriate course of treatment. Topics of Discussion Topics of Discussion: I held a bedside face to face, very detailed and complex 60min ACP discussion with Ms. Patrick's family which included her longtime boyfriend Addi as well as her daughter Yahaira. Addi is her longtime boyfriend but not her . There is only one child, Yahaira. Yahaira asked about who would be able to make decisions for pt given that she is unable to do so at this junction. We reviewed that she is technically NOK de cision maker under [place] Act 169. SHe indicates Addi and her would be partners in pt care and there is no conflict, she considers them a family unit and will intermittently refer to him as pt's "." We discussed all of the events to date. Yahaira wants to speak with neurology, she has many concerns about the neuro consult + results to date (MRI brain did not find acute event). She notes Criselda has a right sided weakness and slight right facial droop, the onset of decline abruptly began post op in Aug 2023 and there were no neuro changes/memory issues/behav or speech troubles before this time. Yahaira is very worried that a neuro event happened intra or post op that has not been 'caught" I reviewed imaging etc with her and at her request, contacted Dr Blanco from [facility] and shared her request for a call/her mobile phone is [phone]. Per Yahaira: if pt has a progressing dementia/time is running short then they (Addi and Yahaira) would want home with hospice vs if there is something acute and potentially fixable to recover pt back to her Fall 2022 baseline (before surgery) then she would want different plans. Yahaira is not disputing pt may have dementia but is asking what kind and was there a neuro event that precipitated it/did they miss warning signs as a family etc. She is also waiting for more input re her Mom's impaired swallow and what might be able to be done from a nutrition standpoint. Yahaira notes she is struggling with how fast all the decline seems to have been, and she is clearly devoted to her Mom.. Yahaira is still shocked by the rapid onset/progression/decline. We talked about rapidly progressive dementias (RPDs) which are dementias that progress quickly, typically over the course of weeks to months, but sometimes up to two to three years. RPDs are rare and often difficult to diagnose. Many conditions can cause RPD and possible causes include: * Autoimmune diseases (conditions that over-activate the immune system) * Unusual presentations of more common neurodegenerative diseases (such as Alzheimers disease) * Prion diseases (rare forms of neurodegenerative disease) * Infections * Impaired blood flow to or in the brain * Exposure to toxic substances * Vitamin deficiencies * Cancer * Toxicity from prescribed medications * Recurrent seizures Yahaira has struggled with is this something neurological that happened during or right after Mom's surgery that was not caught in time (?Strategic infarct dementia --> a large stroke which can result in sudden onset of symptoms involving behavior or thinking and where symptoms will depend on the area of the brain that was damaged by the stroke. If no further strokes occur, sometimes the symptoms of dementia can stabilize or even get better over time), however imaging to date has not suggested acute event or sequelae and has noted chronic white matter densities changes (WMDs); we spoke about how rapidly progressing dementia is a type of dementia that progresses much faster than is typical of more common dementias, such as Alzheimer's disease. It typically occurs because of an underlying illness, such as prion disease, an autoimmune disease that attacks the brain, infection, or cancer. The following additional information about dementia was reviewed: * Dementia is a terminal illness. Aggressive medical treatment for residents with advanced dementia is often inappropriate for medical reasons, has a low rate of success, and can have negative outcomes that hasten functional decline and . (Citizen Of [place] Geriatrics Society Ethics Committee and Clinical Practice and Models of Care Committee. J Am Geriatr Soc. 2014 May;62(8):1590-3 and Shaun SL, Rockyo JM, Evangelista SC, Gm V. A national study of the location of for older persons with dementia. J Am Geriatr Soc 2005; 53(2):299-305 .) * Tube feeding in residents with advanced dementia does not increase survival. It does not prevent aspiration pneumonia, malnutrition or pressure ulcers. It does not reduce the risk of infections or improve functional status or comfort of the patient. (from: Sean Eldridge LM T Percutaneous endoscopic gastrostomy does not prolong survival in patients with dementia. Arch Old Coin Dealer Med 2003; 163(11):3500-7723 AND Lavon MARY, Juan JONI, Mauro J, Hodan S, Jeremy RS. High short-term mortality in hospitalized patients with advanced dementia - Lack of benefit of tube feeding. Arch Old Coin Dealer Med 2001; 161(4):594- 599.) * Simple strategies involving hands-on care by well-trained staff such as massage, oral hygiene, changes in diet, and hand-feeding -- can prevent infection and manage feeding problems without resort to tube-feeding. * Tube feeding does not prevent aspiration pneumonia and might actually increase its incidence, and does not prevent the consequences of malnutrition * Hand feeding can be provided until the beginning of the dying process when all physiological processes shut down, note that cognitively intact cancer patients indicate that dying residents do not feel hunger and thirst. * Voluntary refusal of food and liquids is often initiated by hospice patients and does not result in discomfort * The majority of older Americans whose underlying cause of is attributable to dementia on their certificate in nursing homes. State-level factors, including the availability of hospital and care home beds and the age of decedents in the population, explain, in part, the wide qacvv-cy-ysnkh variability in the proportion of dementia-related deaths occurring in the hospital. * Older adults with dementia frequently receive acute care in their last year of life although Hospice care was more common for home/DETENTION residents. Overall time in hospice remains short due to the underutilization of the hospice benefit for terminal dementia (Mateo MM, Mangyarielrd JM, Beckford KM, Mark DE, Sam PY. Dementia Care in the Last Year of Life: Experiences in a Community Practice and in Fdc Facilities. J Palliat Care. 2022;38(2):135-142. doi:10.1177/[id number]) * Home Hospice is a valuable option for terminal dementia who desire to have peaceful EOL at home. Home hospice care for advanced dementia can improve symptom management and caregiver satisfaction, while decreasing caregiver burden, preventing hospitalizations and discontinuing unnecessary medications (Ron FIGUEROA, Sana R, Mercedes G, et al. Home hospice for older people with ad vanced dementia: a pilot boat operator project [published correction appears in Isr J Health Policy Res. 2019 Apr 01;8(1):56]. Isr J Health Policy Res. 2019;8(1):42. Published 2018February 04. doi:10.1186/w11941-187-7516-g) * If the plan if for SNF placement, I recommend hospice at SNF: Hospice is a valuable service for persons with advanced dementia, particularly in management of pain, continuous involvement of the primary physician, and avoidance of hospitalization. Social support provided to caregivers is also important given their high levels of depressive symptoms and anxiety. The goal of care for residents with advanced dementia is primarily maintenance of function and patient should not be transferred to an acute care setting because hospitalization results in decline of functional abilities that do not recover after discharge back into care home. If this is desired, then Care Mgt follow up is needed to determine if pt is eligible for hospice at SNF/deferred to CM and primary team. The following family support resources for dementia were provided: National [place] on Aging - Alzheimers and Dementia Resources for Professionals: (https://w ww.nadia.nih.gov/health/dnuzumuxwq-libwebal-xcnmqhdor-for-professionals) Alzheimers Association [facility] Technician and Alzheimers: (https://www.alz.org/health-care- professionals/jjnmde-kwiu-yqhvqwta-medical-resources.asp) Alzheimers Association Community Resource Finder: (https://www.communityresourcefinder.org/) Music and Memory: (https://musicandmemory.org/) I am in OP clinic tomorrow but we agreed to meet Monday at 1030am, at which time I will administer the MoCA cognitive assessment at that time. In the interim we will continue UTI treatment, await their discussion with neurology and roxana chance. Yahaira is very forthright that if Mom has a dementia that is worsening/time is running out then home with hospice is their plan as a family. She also states "I am very well versed and aware of the social services manager availability in this region and have been in contact with friends who also work in this field. I want my Mom to go to a better skilled facility because [facility] has not done much 'skilled' caring for her with all the wounds and breakdown issues we are having now. I want her to go to [facility] where I have friends who work there and she will have much better care." Other Content of Meetin. Opportunity given for participants to speak and ask questions. 2. Participants were assured of attention to patient comfort. 3. Reassurance provided. 4. Support was provided for informed, good-cortney decisions. 5. Emotions expressed by family were acknowledged and addressed. 6. Follow-up: Monday at 1030am, plan for MoCA testing TS: 15 min chart review, 60 min face to face with pt and family, 15min with nursing, primary team and neurology total time = 90min HIGH MDM Thank you for allowing us to participate in the ongoing care of this patient. Please don't hesitate to call or page with any additional concerns. Dr. aKela Zhang DNP Director, Palliative Care
[2024-01-25 06:31] LABS: Hematocrit (blood only) 37.7 % (37.0-47.0); Hemoglobin 12.1 g/dl (12.0-16.0); Mean Corpuscular Hemoglobin 25.7 pg (25.0-34.0); Mean Corpuscular Hgb Conc 32.1 g/dL (32.0-36.0); Mean Corpuscular Volume 80.2 fL (80.0-100.0); Mean Platelet Volume 9.6 fL (9.4-12.4); Platelet Count 135 K/uL (130-400); RDW Coefficient of Variation 16.1 % (11.5-14.5); RDW Standard Deviation 46.8 fL (36.4-46.3)
[2024-01-25 06:56] LABS: Anion Gap 6 (3-11); BUN Creatinine Ratio 21.2 (10-20); Blood Urea Nitrogen 11 mg/dl (6-23); Calcium 8.8 mg/dl (8.6-10.3); Carbon Dioxide 29 mmol/L (21-32); Chloride 101 mmol/L (98-107); Creatinine Clr Calc Pharmacy 104.3 ml/min; Est GFR (African American) 109.9 ml/min; Est GFR (Non-African American) 94.8 ml/min; Glucose 84 mg/dl (70-99(Fasting)); Phosphorus 3.6 mg/dl (2.5-4.9); Sodium 136 mmol/L (136-145)
--- NOTE | 2024-01-25 15:37 | Hospitalist Progress Note ---
Date of Service January 25, 2024 Assessment & Plan (1) Acute alteration in mental status: (2) Myoclonic epilepsy: (3) Chronic obstructive pulmonary disease: (4) Hypertension: (5) Hyperlipidemia: (6) Ataxia: (7) Anxiety: (8) Diabetes mellitus, type 2: (9) CAD (coronary artery disease): (10) Morbid obesity with BMI of 40.0-44.9, adult: Plan 74 yo F resident of [facility] with a PMH of mild Alzheimer's dementia, DM II, dyslipidemia, COPD, nonobstructive CAD, morbid obesity, GERD, BPPV, ataxia, and other problems listed below who presents the ED for evaluation of progressively worsening confusion (for last several weeks) that has been rather abrupt for last 2 days. She is being managed for the following: Acute metabolic encephalopathy Likely multifactorial in setting of possible infection, ? seizure and worsening dementia iso Alzheimer's dementia. Neuro evaled, f/u w/ OP neurology. Leg weakness likely iso UIT causing pelvic discomfort. B12 level 837 and TSH 1.86. Delirium precaution. Avoid benzos. Speech eval for family's concern of swallowing ability. Myoclonic Epilepsy Follows with Dr. Del Castillo, ? 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 c/w depakote at current dose. No further concerns. H/o Alzheimer's dementia Follows with Dr. Del Castillo - previous brain MRI from January 2023: Chronic microvascular ischemic changes. Cerebellar atrophy Repeat brain MRI 01/22 without acute intracranial abnormality. No acute or subacute infarct. Involutional changes with chronic microvascular ischemic disease redemonstrated Neuro consulted as above - was due to see in clinic today but presented to ED instead given acute AMS PT/OT consult for decreased mobility, difficulty feeding herself, etc Family agreeable to palliative consult given progressive decline over past few months, will await further palliative recs. UTI H/o recurrent UTI, low grade fever. c/w rocephin 01/22, mentation slightly improving per pt's dtr at bedside. UCx w/ e coli. DM II A1c of 6 in 12/23 Hold home agents Basal/bolus insulin while in-patient BSG AC HS Peripheral edema Takes daily lasix for edema Will hold due for now as patient appears dehydrated Reassess daily to resume it COPD Chronic, stable. Continue home inhalers, Duonebs QID PRN SOB or wheezing On supplemental O2 in ED, not on O2 at baseline, wean as tolerated CAD Continue aspirin, statin Mood disorder Ativan 0.5mg daily PRN for anxiety. Use sparingly given age, risk for confusion Chronic pain Reduced frequency of oxycodone to Q8H due to concern for polypharmacy RLS Continue Gabapentin HS Yeast infection Diflucan x 1, Monistat cream BID DVT Ppx: Eliquis Code status: FULL PCP: Jin Dispo: Admitted to PCU . PT/OT, CM to assist with dc plan. Admission and Anticipated Discharge Date Admission Date: January 23, 2024 Subjective Patient was seen and examined at bedside. Patient was sitting up in bed, on 1 L oxygen via nasal cannula, alert and oriented x 2, patient's significant other Gene at bedside was also updated on plan of care. Patient denies any pain, reports improving pain or burning with passing urine. Per RN, patient's p.o. intake adequate, has more bowel. No new acute event overnight. No new complaints from the patient. Patient's SO was waiting for the palliative meeting scheduled for today. Physical Exam Physical Exam: GENERAL APPEARANCE: AxOx2, appears ill/sick/weak, no acute distress. HEENT: NC, AT. MMM. EOMI, clear conjunctiva, oropharynx clear. NECK: Supple without lymphadenopathy. No stiffness or restricted ROM. HEART: Normal rate and regular rhythm, normal S1/S1, no m/r/g LUNGS: CTAB, moving air well. No crackles or wheezes are heard. ABDOMEN: Soft, nontender, nondistended with good bowel sounds heard; EXTREMITIES: bilateral compression socks in place NEUROLOGICAL: Grossly nonfocal. Alert and oriented, moving all 4 extremities - no bilateral asymmetry noted. 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 CN not formally tested but appear grossly intact. Results & Data Results & Data Vital Signs (Past 12 Hours) Vital Signs Temp Pulse Pulse Resp BP Pulse Ox O2 Del Method 01/25/24 11:09 36.9 C 56 L 17 115/73 97 Nasal Cannula 01/25/24 08:00 61 01/25/24 08:00 Nasal Cannula 01/25/24 07:28 36.9 C 65 16 133/74 94 Nasal Cannula 01/25/24 03:36 36.9 C 57 L 14 109/67 97 Nasal Cannula O2 Flow Rate 01/25/24 11:09 1.0 01/25/24 08:00 01/25/24 08:00 1 01/25/24 07:28 1.0 01/25/24 03:36 1.0
[2024-01-26 06:58] LABS: Hematocrit (blood only) 38.5 % (37.0-47.0); Hemoglobin 12.7 g/dl (12.0-16.0); Mean Corpuscular Hemoglobin 26.2 pg (25.0-34.0); Mean Corpuscular Volume 79.5 fL (80.0-100.0); Mean Platelet Volume 9.6 fL (9.4-12.4); Platelet Count 162 K/uL (130-400); RDW Coefficient of Variation 16.3 % (11.5-14.5); RDW Standard Deviation 46.6 fL (36.4-46.3); Red Blood Count 4.84 M/uL (4.20-5.40); White Blood Count 9.31 K/ul (4.8-10.8)
[2024-01-26 07:01] LABS: Calcium 8.2 mg/dl (8.6-10.3); Potassium 3.3 mmol/L (3.5-5.1)
[2024-01-26 07:07] LABS: BUN Creatinine Ratio 15.6 (10-20); Creatinine Clr Calc Pharmacy 121.3 ml/min; Est GFR (African American) 115.2 ml/min; Est GFR (Non-African American) 99.4 ml/min
[2024-01-26] MEDS: FUROSEMIDE 40 MG TAB PO SCH (10:37)
[2024-01-26] MEDS: POTASSIUM CHLORIDE / WTR 10 MEQ/100 ML PLCT IV SCH (11:32)
--- NOTE | 2024-01-26 11:39 | Palliative Care Progress Note ---
Date of Service January 26, 2024 Assessment & Plan (1) Cognitive deficit due to and not concurrent with cerebrovascular disease: Plan: MoCA score 6/30 She is having seizure like activity during my assessment and similar with nursing earlier today. She is more awake and alert/less somnolent than prior, UTI treatment underway so suspect this may be related to infection. She needs a higher level of care for in person neuro assessment and testing. I advised dtr that Criselda may well have an RPD which explains the MoCA findings however the very acute onset of dramatic decline of an otherwise well patient following joint surgery is still of great concern to dtr - can pt have an ?atypical seizure syndrome, etc. Dtr also notes pt [place] be transported from [place] [facility] [place] to expert center such as [facility] or [facility] [place] [facility] [place] is for local appointments only. In her current debilitated stated requiring full assist for transfers, pt cannot be transported by family in any safe manner. She needs in person/face to face specialist evaluation to try and better assess the issues and address daughter's concerns. I communicated this to Dr Bautista (2) Encephalopathy: Plan: Improved with UTI rx (3) Weakness generalized: (4) Facial droop: (5) Impaired swallowing: (6) Discussion about advance care planning held with family member: (7) Palliative care by specialist: Plan Strongly recc transfer to higher level of care. She needs in person neuro care and this should not be rushed or abbreviated given the complexity of her situation, limitations in accessing higher level of care from her SNF location and the overall paucity of access in [facility] for patient with high levels of dependency of others for routine care. Patient's daughter is an network support administrator for [employer] and has a very strong grasp of insurance metrics and limitations. She is notably a very strong advocate for her mother. MoCA will be sent to med records for scanning into EMR. Continue UTI rx. Tylenol for pain, would for now avoid opioids to limit any further clouding of mentation. Thank you for allowing us to participate in the ongoing care of this patient. Please don't hesitate to call or page with any additional concerns. Dr. Kaela Zhang DNP Director, Palliative Care Admission and Anticipated Discharge Date Admission Date: January 23, 2024 Subjective Criselda is seen bedside with dtr and SO Gene present She is semi reclined and complains of pain in her back Skin assessment done during AM care and no breakdown noted at sight of pain complaint but we will ask Wound Care nurse to assess for possible risk of breakdown and ?specialy mattress need She did not like breakfast and ate less than 10% She is now feeling very hungry She denies SOB or nausea She has no chest pain I administered a MoCA test, results below in assessment Review of Systems 2 Review of Systems: All systems reviewed & are unremarkable except as noted in Subjective Physical Exam 2 Physical Exam: Resting semi reclined in bed with mild bitemp wasting noted Pupils are equal bilat, does not consistently track movement with her eyes There is intermittent blank stare periods where she does not respond to stimuli, cannot answer questions, cannot follow commands; these are lasting up to a minute then she is confused and foggy when they break and she needs to be reoriented. There is an increased shaking tremor in her RUE when these episodes happen. Neck supple, no stridor, no thyromegaly Dentition poor Resp effort WAL at rest. Limited anterior chest exam with overall diminished breath sounds, no crackles or wheezing noted. 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 +1-2 BLE edema, non pitting Skin pale and warm, +diaphoretic MoCA assessment performed: Patient scored 6/30 which is suggestive of significant cognitive deficit: Results & Data Vital Signs (Past 12 Hours) Vital Signs Temp Pulse Pulse Resp BP Pulse Ox O2 Del Method 01/26/24 11:20 36.8 C 78 17 129/68 95 Room Air 01/26/24 07:30 75 01/26/24 07:30 Nasal Cannula 01/26/24 07:28 36.8 C 73 17 119/74 91 Room Air 01/26/24 03:00 36.4 C L 75 18 135/83 95 Room Air O2 Flow Rate 01/26/24 11:20 01/26/24 07:30 01/26/24 07:30 1 01/26/24 07:28 01/26/24 03:00 Laboratory Results Abnormal lab results 01/25/24 01/26/24 Range/Units 20:06 05:52 MCV 79.5 L (80.0-100.0) fL RDW Std Deviation 46.6 H (36.4-46.3) fL RDW Coeff of [place] 16.3 H (11.5-14.5) % Potassium 3.3 L (3.5-5.1) mmol/L Creatinine 0.45 L (0.6-1.2) mg/dl POC Glucose 162 H (70-99) mg/dl Calcium 8.2 L (8.6-10.3) mg/dl Diagnostic Findings no new imaging PG Care Time/CCT Total # of Minutes Spent Total Time Spent with Patient: Total time spent is greater than 50% in coordination of care (as documented) at patient's floor/unit and/or counseling patient: I spent 100 minutes overall addressing this very complex case: 10 min in medical data review/discussion with referring provider(s) and/or preparation for the visit 60 min in direct interaction with the patient/exam which included formal MoCA assessment. 000 min in Advance Care Planning/Goals of Care discussions as detailed above in note (must be >16min) 15 min in subsequent review and synthesis of assessment and plan 20 min communicating with other providers regarding the patient's case: nursing, primary team [place] [address] SUB INP/OBS CARE 3/50MIN (25 - SIGNIFICANT, SEPARATELY IDENTIFIABLE ) Patient Type Established Medical Decision Making High Complexity Diagnoses Cognitive deficit due to and not concurrent with cerebrovascular disease I69.919 Encephalopathy G93.40 Weakness generalized R53.1 Facial droop R29.810 Impaired swallowing R13.10 Discussion about advance care planning held with family member Z71.0 Palliative care by specialist Z51.5
--- NOTE | 2024-01-26 16:08 | Hospitalist Progress Note ---
Date of Service January 26, 2024 Assessment & Plan (1) Acute alteration in mental status: (2) Myoclonic epilepsy: (3) Chronic obstructive pulmonary disease: (4) Hypertension: (5) Hyperlipidemia: (6) Ataxia: (7) Anxiety: (8) Diabetes mellitus, type 2: (9) CAD (coronary artery disease): (10) Morbid obesity with BMI of 40.0-44.9, adult: Plan 74 yo F resident of [facility] with a PMH of mild Alzheimer's dementia, DM II, dyslipidemia, COPD, nonobstructive CAD, morbid obesity, GERD, BPPV, ataxia, and other problems listed below who presents the ED for evaluation of progressively worsening confusion (for last several weeks) that has been rather abrupt for last 2 days. She is being managed for the following: Acute metabolic encephalopathy Likely secondary to UTI ? Subclinical seizures History of myoclonic epilepsy Likely multifactorial in setting of possible infection, ? seizure and worsening dementia iso Alzheimer's dementia. B12 level 837 and TSH 1.86. Delirium precaution. Avoid benzos. EEG-- No epileptiform discharges or electrographic seizures are recorded. As per palliative care; patient had seizure-like activity during her assessment. Recommended higher level of care for 24-hour EEG monitoring to rule out subclinical seizure for altered mental status. Discussed with transfer center at [facility]; patient acceptedawaiting bed placement. Continue on Depakote 500 twice daily; Depakote level within therapeutic range. Seizure precautions UTI History of recurrent UTI. Urine culture growing E. coli; resistant to quinolones. Sensitive to Augmentin, ceftriaxone. Continue ceftriaxone; plan to treat for 5 days. DM II A1c of 6 in 12/23 Hold home agents Basal/bolus insulin while in-patient BSG AC HS COPD Chronic, stable. Continue home inhalers, Duonebs QID PRN SOB or wheezing On supplemental O2 in ED, not on O2 at baseline, wean as tolerated CAD Continue aspirin, statin Mood disorder Ativan 0.5mg daily PRN for anxiety. Use sparingly given age, risk for confusion Chronic pain Reduced frequency of oxycodone to Q8H due to concern for polypharmacy RLS Continue Gabapentin HS Yeast infection Diflucan x 1, Monistat cream BID DVT Ppx: Eliquis Code status: FULL PCP: Jin Dispo: Admitted to PCU . Patient to be transferred to [facility] for 24-hour EEG monitor to rule out subclinical seizures. Please note the above document was generated using voice recognition software. It may contain grammatical, syntax or spelling errors. Any formal questions or concerns about the content, text or information contained within the body of this dictation should be directly addressed to the provider for clarification Admission and Anticipated Discharge Date Admission Date: January 23, 2024 Subjective Patient seen and examined at bedside. Her daughter and boyfriend were also at bedside. She is comfortably lying in the bed; not in distress. She is able to follow simple commands and answer some questions. Review of Systems Review of Systems: All systems reviewed & are unremarkable except as noted in Subjective Physical Exam Physical Exam: Constitutional: Alert, oriented to self and family. not in distress. Respiratory: normal respiratory effort, lungs clear to auscultation, no wheeze, rales, rhonchi. Normal insp/exp effort, no accessory muscle use Cardiovascular: RRR, no murmur, no edema Vessels: no JVD or carotid bruit Chest: normal inspection of chest Abdomen: normal bowel sounds, soft, nontender, no hepatosplenomegaly Musculoskeletal: no cyanosis or clubbing, extremities motor strength 5/5 Skin: no rashes, warm and dry normal turgor Neurologic: PERRL, EOMI, accommodation nl, no face palsy, no dysarthria CN's II- XI intact bilaterally and moves all extremities Psychiatric: Alert, oriented to self and family Results & Data Results & Data Vital Signs (Past 12 Hours) Vital Signs Temp Pulse Pulse Resp BP Pulse Ox O2 Del Method 01/26/24 14:21 36.9 C 75 18 113/73 91 Room Air 01/26/24 11:20 36.8 C 78 17 129/68 95 Room Air 01/26/24 07:30 75 01/26/24 07:30 Nasal Cannula 01/26/24 07:28 36.8 C 73 17 119/74 91 Room Air O2 Flow Rate 01/26/24 14:21 01/26/24 11:20 01/26/24 07:30 01/26/24 07:30 1 01/26/24 07:28
--- NOTE | 2024-01-26 16:15 | Discharge Summary ---
Date of Service January 26, 2024 Admission HPI Per Admitting Provider This is a 74 yo F resident of [facility] with a PMH of mild Alzheimer's dementia, DM II, dyslipidemia, COPD, nonobstructive CAD, morbid obesity, GERD, BPPV, ataxia, and other problems listed below who presents the ED for evaluation of progressively worsening confusion x 2 days. History primarily obtained from family at bedside as well as chart review due to patient's reduced cognitive state. Patient with known history of cognitive decline over the past year with atrophy noted in multiple places on previous brain MRI in March (daughter denies being given a Alzheimer's diagnosis at this point, had a neuro appt scheduled for today). However, since two months ago family notes progressively worsening short-term memory and responsiveness as well as inappropriate responses to questions and difficulty socializing. 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 Around the hol, patient was able to independently get from seated to standing at the table but since then has progressed to needing a two- person assist and Amrit lift for transfers. Was evaluated at [facility] yesterday for increased confusion. At this time, also noted to have a left- sided facial droop with associated twitching of right upper extremity by daughter that seemed to resolve. Per discussion between family and provider on site, decided to keep scheduled neurology appointment for today and not present to hospital. However, overnight, patient became progressively less responsive, staring into the distance and not answering questions. Does not know where she is. [facility] for further evaluation of acute CVA versus acute metabolic encephalopathy versus seizure behavior. Intermittently tearful during exam, struggling with the reality that she has dementia and is likely progressing. Admits that she is having trouble following commands even though she can understand the prompt. Patient denies any chest pain, shortness of breath or abdominal pain. Remainder of ROS difficult to obtain given cognitive state. Admission Exam Per Admitting Provider General Appearance: vitals as above, morbidly obese, intermittent staring, generally answered appropriately but delayed, NAD, intermittently tearful Head: normocephalic, atraumatic Eyes: normal inspection, PERRL, conjunctivae normal, anicteric sclerae ENT: external ear and nose normal, dry mucous membranes of oropharynx Neck: normal visual inspection Respiratory: normal respiratory effort, lungs clear to auscultation, no wheeze, rales, rhonchi. No accessory muscle use Cardiovascular: regular rate, rhythm, no murmur, normal peripheral pulses, no BLE edema. Vessels: no JVD Chest: normal inspection of chest Abdomen/GI: normal bowel sounds, soft, nontender, no hepatosplenomegaly Extremities/Musculoskeletal: +tubigrip on BLE, trace edema, no cyanosis or clubbing, BUE and BLE TALA 1-2/5 but noted to have some spontaneous movement of extremities during interview Neurologic: PERRL, EOMI, accommodation nl, no face palsy, no dysarthria, CN's II-XI intact bilaterally Psychiatric: A+Ox 1 (person only), delayed responses, intermittently able to answer correctly Skin: normal color, warm/dry Principal Diagnosis Altered mental status Acute UTI Possible subclinical seizures Discharge Exam Constitutional: Alert, oriented to self and family. not in distress. Respiratory: normal respiratory effort, lungs clear to auscultation, no wheeze, rales, rhonchi. Normal insp/exp effort, no accessory muscle use Cardiovascular: RRR, no murmur, no edema Vessels: no JVD or carotid bruit Chest: normal inspection of chest Abdomen: normal bowel sounds, soft, nontender, no hepatosplenomegaly Musculoskeletal: no cyanosis or clubbing, extremities motor strength 5/5 Skin: no rashes, warm and dry normal turgor Neurologic: PERRL, EOMI, accommodation nl, no face palsy, no dysarthria CN's II- XI intact bilaterally and moves all extremities Psychiatric: Alert, oriented to self and family Discharge Data Allergies Allergy/AdvReac Type Severity Reaction Status Date / Time dog dander Allergy Unknown Sneezing, Verified 07/28/23 06:51 itchy eyes/throat grass pollen-perennial rye, Allergy Unknown Sneezing, Verified 07/28/23 06:51 standar itchy eyes/throat Consultations 01/23/24 13:48 ED Decision to Admit Stat 01/23/24 14:21 Consult Neurology Routine 01/23/24 14:22 Consult Palliative Care Routine 01/26/24 12:42 Burn CD for patient Routine Ordered Studies 01/23/24 10:43 CT head/brain wo con Stat 01/23/24 14:18 MRI Brain [MR brain wo/w con] Urgent Hospital Course (1) Acute alteration in mental status: (2) Myoclonic epilepsy: (3) Chronic obstructive pulmonary disease: (4) Hypertension: (5) Hyperlipidemia: (6) Ataxia: (7) Anxiety: (8) Diabetes mellitus, type 2: (9) CAD (coronary artery disease): (10) Morbid obesity with BMI of 40.0-44.9, adult: Plan 74 yo F resident of [facility] with a PMH of mild Alzheimer's dementia, DM II, dyslipidemia, COPD, nonobstructive CAD, morbid obesity, GERD, BPPV, ataxia, and other problems listed below who presents the ED for evaluation of progressively worsening confusion (for last several weeks) that has been rather abrupt for last 2 days. She is being managed for the following: Acute metabolic encephalopathy Likely secondary to UTI ? Subclinical seizures History of myoclonic epilepsy Likely multifactorial in setting of possible infection, ? seizure and worsening dementia iso Alzheimer's dementia. B12 level 837 and TSH 1.86. Delirium precaution. Avoid benzos. EEG-- No epileptiform discharges or electrographic seizures are recorded. As per palliative care; patient had seizure-like activity during her assessment. Recommended higher level of care for 24-hour EEG monitoring to rule out subclinical seizure for altered mental status. Discussed with [place] [facility]; patient acceptedawaiting bed placement. Continue on Depakote 500 twice daily; Depakote level within therapeutic range. Seizure precautions UTI History of recurrent UTI. Urine culture growing E. coli; resistant to quinolones. Sensitive to Augmentin, ceftriaxone. Continue ceftriaxone; plan to treat for 5 days. DM II A1c of 6 in 12/23 Hold home agents Basal/bolus insulin while in-patient BSG AC HS COPD Chronic, stable. Continue home inhalers, Duonebs QID PRN SOB or wheezing On supplemental O2 in ED, not on O2 at baseline, wean as tolerated CAD Continue aspirin, statin Mood disorder Ativan 0.5mg daily PRN for anxiety. Use sparingly given age, risk for confusion Chronic pain Reduced frequency of oxycodone to Q8H due to concern for polypharmacy RLS Continue Gabapentin HS Yeast infection Diflucan x 1, Monistat cream BID DVT Ppx: Eliquis Code status: FULL PCP: Jin Dispo: Admitted to PCU . Patient to be transferred to [facility] for 24-hour EEG monitor to rule out subclinical seizures. Please note the above document was generated using voice recognition software. It may contain grammatical, syntax or spelling errors. Any formal questions or concerns about the content, text or information contained within the body of this dictation should be directly addressed to the provider for clarification Total Time Total Time Spent Total Time Spent (In Minutes): 56 Total Time Includes: Examination of the Patient, Discharge Planning, Medication Reconciliation, Communication With Other Providers and Other Discharge Plan Discharge Items Patient Disposition: Transfer Acute Care Hospital Reason For Visit: AMS, SEIZURE HISTORY Discharge Diagnosis: Altered mental status Likely subclinical seizures Activity: Resume your previous activity Non-emergency contact: Primary Care Provider Call non-emergency contact if: you have any medication questions and your symptoms worsen Follow-up/Referrals: Renny Abdi MD [Primary Care Provider] - Diet: Regular Addtl Attending Provider Instructions: Patient was brought in the hospital for concern of progressive confusion for the last several weeks. She was being treated for UTI with ceftriaxone. Urine culture positive for E. coli. She was evaluated by palliative care. During the evaluation; patient had staring spells. Palliative recommended transfer to [facility] for in person neuroassessment and evaluation for 24-hour EEG. Pending Studies at Discharge: No Stand-Alone Forms: My [employer] Skilled Items Patient informed of condition?: No DNR: No Discharge Level of Care: Skilled Communicable Disease: No Discharge Prognosis: Stable Lines: None Urinary Catheter: No Medications and DC Order Prescriptions: Continued multivitamin Tablet 1 tab PO QAM atorvastatin 40 mg Tablet 40 mg PO HS acetaminophen 325 mg Tablet 325 mg PO Q6 PRN (Reason: Pain) cetirizine [Zyrtec] 10 mg Tablet 10 mg PO QAM oxybutynin chloride 10 mg Tablet Extended Release 24hr 10 mg PO QAM nystatin 100,000 unit/gram Cream 1 applic TOPICAL UD PRN (Reason: Rash) omeprazole 20 mg Capsule,Delayed Release(Dr/Ec) 20 mg PO BID Lactobacillus acidophilus Capsule 10 mg PO QAM albuterol sulfate 90 mcg/actuation Hfa Aerosol Inhaler 2 puff INHALATION Q4H PRN (Reason: Shortness Of Breath) ketoconazole 2 % Cream 1 applic TOPICAL BID PRN (Reason: Skin Irritation) fluticasone propionate 50 mcg/actuation [place],Suspension 1 spray INTRANASAL QAM Trelegy Ellipta 100-62.5-25 mcg Blister With Device 1 inh INHALATION QAM latanoprost 0.005 % drops 1 drp ophthalmic (eye) HS Patient Comments: both eyes ropinirole 1 mg tablet 1 mg PO HS cyanocobalamin (vitamin B-12) [Vitamin B-12] 100 mcg Tablet 100 mcg PO QAM albuterol sulfate 2.5 mg /3 mL (0.083 %) Solution For Nebulization 2.5 mg INHALATION DIRECTED PRN (Reason: Shortness Of Breath Or Wheezing) divalproex 500 mg tablet,delayed release (DR/EC) 500 mg PO BID metformin 500 mg tablet extended release 24 hr 1,000 mg PO BID cholecalciferol (vitamin D3) [Vitamin D3] 25 mcg (1,000 unit) Capsule 25 mcg PO QAM lorazepam 1 mg tablet 0.5 mg PO DAILY PRN (Reason: Anxiety) Patient Comments: per pt takes before riding in cars diclofenac sodium [Voltaren Arthritis Pain] 1 % gel 4 g EXT UD PRN (Reason: Pain) aspirin 81 mg Tablet,Delayed Release (Dr/Ec) 81 mg PO BID 42 Days Qty: 0 0RF gabapentin 300 mg capsule 300 mg PO HS furosemide 40 mg tablet 40 mg PO DAILY insulin glargine 100 unit/mL Solution 8 unit SUBCUT PM insulin lispro 100 unit/mL insulin pen 4 unit SUBCUT UD Rx Instructions: 4U BID with meals melatonin 5 mg Tablet 5 mg PO HS PRN (Reason: Insomnia) Eliquis 5 mg tablet 5 mg PO BID potassium chloride 20 mEq Tablet Extended Release 20 meq PO BID oxycodone 5 mg tablet 5 mg PO Q6H PRN (Reason: moderate to severe pain) Discharge Orders: Discharge Order (Routine); Ordered 01/26/24 Ordered By: Tejas Bautista Admission Data Admit Date/Time: 01/23/24 14:18 Attending Provider: Tejas Bautista Admit Provider: Radha Nguyen Primary Care Provider: Renny Abdi Other Providers: Natanael Maxwell; Kaela Zhang; Radha Nguyen
== END 2024-01-26 19:26 | disposition short-term general hospital (02) | DRG 689 ==
LOC: ED 10:10 → EDINP 14:18 → SUATTDRO 14:18 → EDINP 17:05 → 2S 18:34
DX: B96.20 Unspecified Escherichia coli [E. coli] as the cause of diseases classified elsewhere; Z79.82 Long term (current) use of aspirin; Z79.84 Long term (current) use of oral hypoglycemic drugs; E66.01 Morbid (severe) obesity due to excess calories; R56.9 Unspecified convulsions; K21.9 Gastro-esophageal reflux disease without esophagitis; E11.9 Type 2 diabetes mellitus without complications; J44.9 Chronic obstructive pulmonary disease, unspecified; N39.0 Urinary tract infection, site not specified; I10 Essential (primary) hypertension; Z16.23 Resistance to quinolones and fluoroquinolones; E78.5 Hyperlipidemia, unspecified; G30.9 Alzheimer's disease, unspecified; I25.10 Atherosclerotic heart disease of native coronary artery without angina pectoris; Z79.899 Other long term (current) drug therapy; B37.9 Candidiasis, unspecified; G25.3 Myoclonus; F02.80 Dementia in other diseases classified elsewhere, unspecified severity, without behavioral disturbance, psychotic disturbance, mood disturbance, and anxiety; E86.0 Dehydration; G25.81 Restless legs syndrome; G93.41 Metabolic encephalopathy; Z68.41 Body mass index [BMI] 40.0-44.9, adult

== ENCOUNTER 2024-03-04 22:57 | Inpatient (IN) ==
[2024-03-04 23:40] LABS: Basophils # (auto) 0.06 K/uL (0.00-0.20); Basophils % (auto) 0.5 %; Hematocrit (blood only) 48.6 % (37.0-47.0); Hemoglobin 16.1 g/dl (12.0-16.0); Immature Granulocytes # (auto) 0.07 K/uL (0.01-0.20); Immature Granulocytes % (auto) 0.6 %; Lymphocytes # (auto) 2.13 K/uL (1.20-3.40); Lymphocytes % (auto) 19.4 %; Mean Corpuscular Hemoglobin 26.5 pg (25.0-34.0); Mean Corpuscular Hgb Conc 33.1 g/dL (32.0-36.0); Mean Corpuscular Volume 80.1 fL (80.0-100.0); Mean Platelet Volume 10.1 fL (9.4-12.4); Monocytes # (auto) 1.16 K/uL (0.11-0.59); Monocytes % (auto) 10.5 %; Neutrophils # (auto) 7.58 K/uL (1.40-6.50); Nucleated RBC # (auto) 0.05 K/uL (0.00-0.12); Nucleated RBC % (auto) 0.5 %; Platelet Count 254 K/uL (130-400); RDW Coefficient of Variation 20.1 % (11.5-14.5); RDW Standard Deviation 55.2 fL (36.4-46.3); Red Blood Count 6.07 M/uL (4.20-5.40)
[2024-03-04] MEDS ORDERED: VANCOMYCIN CONSULT ACTIVE PRN (23:46)
[2024-03-04 23:52] LABS: iSTAT Creatinine 0.8 mg/dl (0.6-1.3); iSTAT Hemoglobin 16.3 g/dl (12.0-16.0); iSTAT Ionized Calcium 1.18 mmol/l (1.12-1.32); iSTAT Potassium 4.8 mmol/L (3.3-5.0)
[2024-03-04 23:54] LABS: Albumin Level 3.6 gm/dl (3.4-5.0); BUN Creatinine Ratio 43.7 (10-20); Bilirubin Direct 0.2 mg/dl (0-0.2); Bilirubin,Total 0.6 mg/dl (0.2-1.0); Calcium 8.9 mg/dl (8.6-10.3); Creatinine Clr Calc Pharmacy 61.9 ml/min; Est GFR (African American) 76.6 ml/min; Est GFR (Non-African American) 66.1 ml/min; Magnesium 2.2 mg/dl (1.7-2.4); Potassium 4.7 mmol/L (3.5-5.1)
[2024-03-04] MEDS: cefTRIAXone SODIUM 2,000 MG/50 ML BAG IV STA (23:56)
[2024-03-04] MEDS: ACETAMINOPHEN 1,000 MG/100 ML VIAL IV STA (23:56)
[2024-03-04] MEDS: SODIUM CHLORIDE 0.9% 1,000 ML IV SCH (23:56)
[2024-03-04 23:59] LABS: Anisocytosis Present
[2024-03-05 00:01] LABS: Appearance Urine Turbid (Clear); Bacteria Urine Automated 4+ (None Seen); Bilirubin Urine Negative (Negative); Blood Urine 1+ (Negative); Cast Urine Automated >20 /lpf (0-2); Color Urine Dark Yellow; Epithelial Cell Urine Auto >20 /hpf (0-2); Glucose Urine UA Negative (Negative); Ketones Urine 1+ (Negative); Leukocyte Esterase Urine 3+ (Negative); Mucus Urine Present (None Prsent); Nitrite Urine Positive (Negative); Protein Urine 2+ (Negative); Urobilinogen Urine Negative (Negative); WBC Urine Automated >50 /hpf (0-5)
--- NOTE | 2024-03-05 00:09 | Emergency Department Note ---
ED Visit Note I was consulted by the Advanced Practice Provider. I personally made/approved the management plan and take responsibility for the patient management. I performed a substantive portion of the visit. This includes the aspects of: Personally seeing the patient MDM I independently interpreted the following studies: Portable chest x-ray .
[2024-03-05] MEDS: VANCOMYCIN HCL 1,750 MG in SODIUM CHLORIDE 0.9% 500 ML IV ONE (00:46)
[2024-03-05 01:13] LABS: Adenovirus PCR Not Detected (NotDetected); Bordetella parapertussis PCR Not Detected (NotDetected); Bordetella pertussis PCR Not Detected (NotDetected); Chlamydia pneumoniae PCR Not Detected (NotDetected); Coronavirus 229E PCR Not Detected (NotDetected); Coronavirus CoV-2 (COVID19)PCR Not Detected (NotDetected); Coronavirus HKU1 PCR Not Detected (NotDetected); Coronavirus NL63 PCR Not Detected (NotDetected); Coronavirus OC43PCR Not Detected (NotDetected); Human Metapneumovirus PCR Not Detected (NotDetected); Influenza A PCR Not Detected (NotDetected); Influenza B PCR Not Detected (NotDetected); Mycoplasma pneumoniae PCR Not Detected (NotDetected); Parainfluenza Virus 1 PCR Not Detected (NotDetected); Parainfluenza Virus 2 PCR Not Detected (NotDetected); Parainfluenza Virus 3 PCR Not Detected (NotDetected); Parainfluenza Virus 4 PCR Not Detected (NotDetected); Respiratory Syncytial VirusPCR Not Detected (NotDetected); Rhinovirus/Enterovirus PCR Not Detected (NotDetected)
--- NOTE | 2024-03-05 01:51 | Emergency Department Note ---
History of Present Illness General Chief complaint: Fever Stated complaint: SEPSIS, FEVER, AMS Time Seen by Provider: 03/04/24 23:12 History of Present Illness This is a 74-year-old female presenting to the emergency department via EMS from [facility]. Patient was sent to the facility as she has had altered mental status for the past 3 days. Patient has recent admission to this facility for UTI. Patient is not currently on any antibiotics. History is limited from the patient as she is confused. History is primarily provided by EMS, and eventually by family who arrived at bedside. Home Medications Medication Instructions Recorded Confirmed Type Lactobacillus acidophilus 1 cap PO BID 11/03/20 03/05/24 History acetaminophen 325 mg tablet 650 mg PO Q6 PRN Fever 11/03/20 03/05/24 History albuterol sulfate 90 mcg/actuation 2 puff inhalation Q4H PRN 11/03/20 03/05/24 History aerosol inhaler Shortness Of Breath atorvastatin 40 mg tablet 40 mg PO HS 11/03/20 03/05/24 History fluticasone fur. 100 mcg-umeclid 1 inh inhalation QAM 11/03/20 03/05/24 History 62.5 mcg-vilant 25 mcg inhalat.powder (Trelegy Ellipta) fluticasone propionate 50 1 spray intranasal QAM 11/03/20 03/05/24 History mcg/actuation nasal spray,suspension multivitamin 1 tab PO QAM 11/03/20 03/05/24 History omeprazole 20 mg capsule,delayed 20 mg PO AMHS 11/03/20 03/05/24 History release albuterol sulfate 2.5 mg/3 mL 2.5 mg inhalation Q4 PRN Shortness 02/25/23 03/05/24 History (0.083 %) solution for nebulization Of Breath Or Wheezing cholecalciferol (vitamin D3) 25 25 mcg PO QAM 02/25/23 03/05/24 History mcg (1,000 unit) capsule (Vitamin D3) cyanocobalamin (vitamin B-12) 100 100 mcg PO QAM 02/25/23 03/05/24 History mcg tablet (Vitamin B-12) divalproex 500 mg tablet,delayed 500 mg PO BID 02/25/23 03/05/24 History release latanoprost 0.005 % eye drops 1 drp OPB HS 02/25/23 03/05/24 History ropinirole 1 mg tablet 1 mg PO HS 02/25/23 03/05/24 History gabapentin 300 mg capsule 300 mg PO BID 03/28/23 03/05/24 History apixaban 5 mg tablet (Eliquis) 5 mg PO BID 01/23/24 03/05/24 History furosemide 40 mg tablet 40 mg PO DAILY 01/23/24 03/05/24 History insulin glargine 100 unit/mL 8 unit subcut HS 01/23/24 03/05/24 History subcutaneous solution melatonin 5 mg tablet 5 mg PO HS PRN Insomnia 01/23/24 03/05/24 History oxycodone 5 mg tablet 5 mg PO Q6H PRN moderate to severe 01/23/24 03/05/24 History pain potassium chloride 20 mEq 40 meq PO DAILY 01/23/24 03/05/24 History tablet,extended release acetaminophen 500 mg tablet 1,000 mg PO Q8 03/05/24 03/05/24 History (Tylenol Extra Strength) aspirin 81 mg tablet,delayed 81 mg PO QAM 03/05/24 03/05/24 History release ceftriaxone 1 gram solution for 1 g IM DAILY 03/05/24 03/05/24 History injection loratadine 10 mg tablet 10 mg PO DAILY 03/05/24 03/05/24 History metformin 1,000 mg tablet 1,000 mg PO BID 03/05/24 03/05/24 History miconazole nitrate 2 % topical 1 applic topical BID 03/05/24 03/05/24 History powder Allergies Allergy/AdvReac Type Severity Reaction Status Date / Time dog dander Allergy Unknown Sneezing, Verified 07/28/23 06:51 itchy eyes/throat grass pollen-perennial rye, Allergy Unknown Sneezing, Verified 07/28/23 06:51 standar itchy eyes/throat Past Med/Surg History Problem List (Updated 03/05/24 @ 03:26 by Osman Jamil PA-C) AMS (altered mental status) (Acute) Sepsis (Acute) Palliative care by specialist Discussion about advance care planning held with family member Impaired swallowing Malnutrition Facial droop Garbled speech Confusion Weakness generalized Leg weakness Encephalopathy Morbid obesity with BMI of 40.0-44.9, adult Myoclonic epilepsy Chronic obstructive pulmonary disease Hypertension Hyperlipidemia Ataxia uses walker Myoclonic jerking Dr. Del Castillo EEG 04/2020: "Normal" awake and sleep EEG. No evidence of focal slowing or epileptiform activity. Anxiety Diabetes mellitus, type 2 CAD (coronary artery disease) Cardiac cath 04/2018- mild nonobstructive CAD Acute alteration in mental status (Acute) Morbid obesity with BMI of 45.0-49.9, adult Hypoxia (Acute) Morbid obesity Fall Ambulatory dysfunction Accidental overdose Polypharmacy (Acute) Metabolic encephalopathy Hypokalemia (Acute) UTI (urinary tract infection) Medical History Cognitive deficit due to and not concurrent with cerebrovascular disease Urinary incontinence Chronic Overactive bladder Glaucoma Claustrophobia Osteoarthritis of knees, bilateral BPPV (benign paroxysmal positional vertigo) History of sepsis History of melanoma back History of right breast cancer Dx 1997- chemo/radiation/surgery Surgical History Status post left knee replacement (~07/2023) Family history of reaction to anesthesia Daughter PONV History of right breast biopsy malignant History of cholecystectomy History of appendectomy History of colonoscopy History of Mohs micrographic surgery for skin cancer History of lumpectomy of right breast History of tooth extraction History of bilateral cataract extraction History of cardiac cath ~2017 ([facility])- no stents Family History Brother Family hx of colon cancer Father Family hx of colon cancer Sister Family history of diabetes mellitus Daughter Family history of reaction to anesthesia nausea/vomiting/migraine Mother Family history of diabetes mellitus Brother Family history of diabetes mellitus Family hx colonic polyps Social History Smoking Status: Never smoker Second Hand Exposure: No; Do You Dip or Chew Tobacco: No; Hx Alcohol Use: No Hx Substance Use: No Preferred Language: Dominican Communication Ability: Impaired Communication Ability Comment: Confused Hydro Mechanic Required: No Beliefs That Will Affect Care: None Current Living Situation: Retirement Current Living Situation Comment: lives at home with Feels Safe at Home: Yes Assistive Devices: Bedside Commode Review of Systems A total of 10 systems reviewed and were otherwise negative (ROS is limited and performed with assistance of EMS and family) Physical Exam Vital Signs Vital Signs - 24 hr 03/04/24 22:52 03/04/24 22:52 03/04/24 23:01 Temperature 40.2 C H 40.2 C H Temperature Source Rectal Rectal Pulse Rate 131 H 130 H Pulse Rate [Finger] 131 H Pulse Rate from SpO2 Sensor Pulse Rhythm [Finger] Regular Respiratory Rate 30 H 30 H Respiratory Effort / Characteristics Non-Labored Respiratory Depth Normal Respiratory Pattern Tachypnea Blood Pressure 134/97 Blood Pressure [Left Arm] 134/97 Blood Pressure Mean 109 Blood Pressure Mean [Left Arm] 109 Pulse Oximetry 97 97 Oxygen Delivery Method Nasal Cannula Nasal Cannula Oxygen Flow Rate 2 2 Sepsis Recent Fever Within 48 Hours Yes Sepsis New/Unexplained Change in Mental Status Yes Sepsis Action Taken by Nursing Physician Notified 03/04/24 23:02 03/04/24 23:03 03/04/24 23:18 Temperature Temperature Source Pulse Rate 132 H Pulse Rate [Finger] Pulse Rate from SpO2 Sensor 132 H Pulse Rhythm [Finger] Respiratory Rate 33 H Respiratory Effort / Characteristics Respiratory Depth Respiratory Pattern Blood Pressure 134/97 Blood Pressure [Left Arm] Blood Pressure Mean 116 Blood Pressure Mean [Left Arm] Pulse Oximetry 89 L 97 Oxygen Delivery Method Nasal Cannula Oxygen Flow Rate 2 Sepsis Recent Fever Within 48 Hours Sepsis New/Unexplained Change in Mental Status Sepsis Action Taken by Nursing 03/04/24 23:24 03/04/24 23:36 03/04/24 23:48 Temperature Temperature Source Pulse Rate 137 H 134 H 136 H Pulse Rate [Finger] Pulse Rate from SpO2 Sensor 136 H 135 H 136 H Pulse Rhythm [Finger] Respiratory Rate 32 H 29 H 27 H Respiratory Effort / Characteristics Respiratory Depth Respiratory Pattern Blood Pressure Blood Pressure [Left Arm] Blood Pressure Mean Blood Pressure Mean [Left Arm] Pulse Oximetry 97 97 99 Oxygen Delivery Method Oxygen Flow Rate Sepsis Recent Fever Within 48 Hours Sepsis New/Unexplained Change in Mental Status Sepsis Action Taken by Nursing 03/05/24 00:03 03/05/24 00:27 03/05/24 00:33 Temperature Temperature Source Pulse Rate 128 H 117 H 115 H Pulse Rate [Finger] Pulse Rate from SpO2 Sensor 129 H 117 H 116 H Pulse Rhythm [Finger] Respiratory Rate 28 H 24 24 Respiratory Effort / Characteristics Respiratory Depth Respiratory Pattern Blood Pressure 153/96 H Blood Pressure [Left Arm] Blood Pressure Mean 115 Blood Pressure Mean [Left Arm] Pulse Oximetry 97 97 97 Oxygen Delivery Method Nasal Cannula Oxygen Flow Rate 2 Sepsis Recent Fever Within 48 Hours Sepsis New/Unexplained Change in Mental Status Sepsis Action Taken by Nursing 03/05/24 00:50 03/05/24 01:00 03/05/24 01:21 Temperature 38.5 C H Temperature Source Hercules Cath ( Temp Sensing) Pulse Rate 109 H 111 H Pulse Rate [Finger] Pulse Rate from SpO2 Sensor 109 H 111 H Pulse Rhythm [Finger] Respiratory Rate 21 21 Respiratory Effort / Characteristics Respiratory Depth Respiratory Pattern Blood Pressure 136/80 Blood Pressure [Left Arm] Blood Pressure Mean 98 Blood Pressure Mean [Left Arm] Pulse Oximetry 97 97 Oxygen Delivery Method Nasal Cannula Oxygen Flow Rate 2 Sepsis Recent Fever Within 48 Hours Sepsis New/Unexplained Change in Mental Status Sepsis Action Taken by Nursing 03/05/24 01:39 03/05/24 01:54 03/05/24 02:03 Temperature Temperature Source Pulse Rate 102 H 100 H 99 H Pulse Rate [Finger] Pulse Rate from SpO2 Sensor 103 H 100 H 99 H Pulse Rhythm [Finger] Respiratory Rate 15 18 21 Respiratory Effort / Characteristics Respiratory Depth Respiratory Pattern Blood Pressure 110/63 Blood Pressure [Left Arm] Blood Pressure Mean 78 Blood Pressure Mean [Left Arm] Pulse Oximetry 95 94 94 Oxygen Delivery Method Room Air Oxygen Flow Rate Sepsis Recent Fever Within 48 Hours Sepsis New/Unexplained Change in Mental Status Sepsis Action Taken by Nursing 03/05/24 02:18 03/05/24 02:33 03/05/24 02:50 Temperature 38.4 C H Temperature Source Hercules Cath ( Temp Sensing) Pulse Rate 97 H 92 H Pulse Rate [Finger] Pulse Rate from SpO2 Sensor 97 H 92 H Pulse Rhythm [Finger] Respiratory Rate 18 21 Respiratory Effort / Characteristics Respiratory Depth Respiratory Pattern Blood Pressure Blood Pressure [Left Arm] Blood Pressure Mean Blood Pressure Mean [Left Arm] Pulse Oximetry 92 92 Oxygen Delivery Method Room Air Oxygen Flow Rate Sepsis Recent Fever Within 48 Hours Sepsis New/Unexplained Change in Mental Status Sepsis Action Taken by Nursing 03/05/24 02:51 Temperature Temperature Source Pulse Rate 96 H Pulse Rate [Finger] Pulse Rate from SpO2 Sensor Pulse Rhythm [Finger] Respiratory Rate Respiratory Effort / Characteristics Respiratory Depth Respiratory Pattern Blood Pressure Blood Pressure [Left Arm] Blood Pressure Mean Blood Pressure Mean [Left Arm] Pulse Oximetry Oxygen Delivery Method Oxygen Flow Rate Sepsis Recent Fever Within 48 Hours Sepsis New/Unexplained Change in Mental Status Sepsis Action Taken by Nursing VITALS: Vitals are noted on the nurse's note and reviewed by myself. Vital signs with fever and tachycardia GENERAL: Ill-appearing white female HEAD: Normocephalic atraumatic. MOUTH: Mucous membranes moist. Tonsils are not enlarged. Pharynx without erythema, blood, or exudate. Uvula midline. Airway patent. NECK: Supple without nuchal rigidity. No lymphadenopathy. No thyromegaly. Cervical spine is nontender. HEART: Tachycardic rate with regular rhythm LUNGS: Clear to auscultation bilaterally without wheezes, rales or rhonchi. No retractions or accessory muscle use. ABDOMEN: Positive normal bowel sounds x 4. Soft, nontender, without masses or organomegaly. No guarding or rebound tenderness. MUSCULOSKELETAL: No muscle atrophy, erythema, or edema noted. Full range of motion in all extremities. No significant lower extremity edema. Course Administered Medications Lactated Ringer's (Lr) 1,000 mls @ 200 mls/hr IV .Q5H ONE Stop: 03/05/24 08:59 Last Admin: 03/05/24 03:01 Dose: 200 mls/hr Documented By: RADHA Discontinued Medications Acetaminophen (Ofirmev) 1,000 mg in 100 mls @ 400 mls/hr IV NOW STA Stop: 03/04/24 23:56 Last Infusion: 03/05/24 00:47 Dose: Infused Documented By: Admin: 03/04/24 23:56 Dose: 400 mls/hr Documented By: RADHA Vancomycin HCl 1,750 mg/ (Sodium Chloride) 535 mls @ 200 mls/hr IV NOW ONE Stop: 03/05/24 02:26 Last Admin: 03/05/24 00:46 Dose: Not Given Documented By: RADHA Ceftriaxone Sodium (Rocephin) 2,000 mg in 50 mls @ 100 mls/hr IV NOW STA Stop: 03/05/24 00:15 Last Infusion: 03/05/24 00:46 Dose: Infused Documented By: Admin: 03/04/24 23:56 Dose: 100 mls/hr Documented By: RADHA Sodium Chloride (Nss) 1,000 mls @ 999 mls/hr IV .Q1H1M NEELAM Stop: 03/05/24 01:49 Last Infusion: 03/05/24 00:46 Dose: Infused Documented By: Admin: 03/04/24 23:56 Dose: 999 mls/hr Documented By: Infusion: 03/04/24 23:56 Dose: Infused Documented By: Admin: 03/04/24 23:56 Dose: 999 mls/hr Documented By: RADHA Cefepime HCl (Maxipime) 2,000 mg in 20 mls @ 5 mls/min IV NOW STA; Protocol Stop: 03/05/24 00:42 Last Admin: 03/05/24 01:53 Dose: 5 mls/min Documented By: RADHA Lactated Ringer's (Lr) 1,000 mls @ 500 mls/hr IV .Q2H ONE Stop: 03/05/24 02:40 Last Infusion: 03/05/24 02:54 Dose: Infused Documented By: Admin: 03/05/24 01:52 Dose: 100 mls/hr Documented By: RADHA Medical Decision Making Differential Diagnosis Differential diagnosis: Etiologies such as viral syndrome, otitis, pharyngitis, pneumonia, influenza, meningitis, urinary tract infection, septic arthritis, soft tissue infectious process, intra-abdominal process, sepsis, bacteremia, as well as others were entertained. Laboratory Data 03/04/24 23:13 03/04/24 23:13 Lab Results 03/04/24 03/04/24 03/04/24 Range/Units 23:13 23:21 23:44 WBC 11.00 H (4.8-10.8) K/ul RBC 6.07 H (4.20-5.40) M/uL Hgb 16.1 H (12.0-16.0) g/dl POC Hgb 16.3 H (12.0-16.0) g/dl Hct 48.6 H (37.0-47.0) % POC Hct 48 H (37-47) % MCV 80.1 (80.0-100.0) fL MCH 26.5 (25.0-34.0) pg MCHC 33.1 (32.0-36.0) g/dL RDW Std Deviation 55.2 H (36.4-46.3) fL RDW Coeff of [place] 20.1 H (11.5-14.5) % Plt Count 254 (130-400) K/uL MPV 10.1 (9.4-12.4) fL Immature Gran % (Auto) 0.6 % Neut % (Auto) 69.0 % Lymph % (Auto) 19.4 % [place] % (Auto) 10.5 % Eos % (Auto) 0.0 % Baso % (Auto) 0.5 % Neut # (Auto) 7.58 H (1.40-6.50) K/uL Lymph # (Auto) 2.13 (1.20-3.40) K/uL [place] # (Auto) 1.16 H (0.11-0.59) K/uL Eos # (Auto) 0.00 (0.00-0.50) K/uL Baso # (Auto) 0.06 (0.00-0.20) K/uL Immature Gran # (Auto) 0.07 (0.01-0.20) K/uL Absolute Nucleated RBC 0.05 (0.00-0.12) K/uL Nucleated RBC % (auto) 0.5 % Anisocytosis Present POC Sodium 143 (135-144) mmol/L Sodium 142 (136-145) mmol/L POC Potassium 4.8 (3.3-5.0) mmol/L Potassium 4.7 (3.5-5.1) mmol/L POC Chloride 111 (101-112) mmol/L Chloride 108 H (98-107) mmol/L Carbon Dioxide 25 (21-32) mmol/L POC Total CO2 23 L (24-31) mmol/L Anion Gap 9 (3-11) POC Anion Gap 15.0 L (16-25) mmol/L POC BUN 33 H (7-18) mg/dl BUN 38 H (6-23) mg/dl Creatinine 0.87 (0.6-1.2) mg/dl POC Creatinine 0.8 (0.6-1.3) mg/dl Est Cr Clr Drug Dosing 61.9 ml/min Est GFR ( Amer) 76.6 ml/min Est GFR (Non-Af Amer) 66.1 ml/min BUN/Creatinine Ratio 43.7 H (10-20) Glucose 167 H (70-99(Fasting)) mg/dl POC Glucose (other) 172 H (70-99) mg/dl Lactate 2.2 H* (0.4-2.0) mmol/L Calcium 8.9 (8.6-10.3) mg/dl POC Ioniz Calcium Cheryl 1.18 (1.12-1.32) mmol/l Magnesium 2.2 (1.7-2.4) mg/dl Total Bilirubin 0.6 (0.2-1.0) mg/dl Direct Bilirubin 0.2 (0-0.2) mg/dl AST 48 H (13-39) U/L ALT 25 (7-52) U/L Alkaline Phosphatase 75 (34-104) U/L Ammonia 22.0 (18-72) umol/L Troponin I High Sens 39.0 H (0-14) pg/ml Total Protein 7.0 (6.0-8.3) gm/dl Albumin 3.6 (3.4-5.0) gm/dl Procalcitonin 0.13 (0-0.5) ng/ml Urine Color Dark Yellow Urine Appearance Turbid A (Clear) Urine pH 6.0 (4.5-7.5) Ur Specific [place] 1.030 (1.000-1.030) Urine Protein 2+ H (Negative) Urine Glucose (UA) Negative (Negative) Urine Ketones 1+ H (Negative) Urine Blood 1+ H (Negative) Urine Nitrite Positive A (Negative) Urine Bilirubin Negative (Negative) Urine Urobilinogen Negative (Negative) Ur Leukocyte Esterase 3+ H (Negative) Urine WBC (Auto) >50 H (0-5) /hpf Urine RBC (Auto) 3-5 H (0-2) /hpf U Hyaline Cast (Auto) >20 H (0-2) /lpf U Epithel Cells (Auto) >20 H (0-2) /hpf Urine Bacteria (Auto) 4+ H (None Seen) Urine Mucus Present A (None Prsent) Adenovirus (PCR) Not Detected (NotDetected) B. pertussis DNA (PCR) Not Detected (NotDetected) B.parapertussis DNA PCR Not Detected (NotDetected) C. pneumoniae DNA (PCR) Not Detected (NotDetected) Coronavirus OC43 (PCR) Not Detected (NotDetected) Coronavirus HKU1 (PCR) Not Detected (NotDetected) Coronavirus 229E (PCR) Not Detected (NotDetected) SARS-CoV-2 (PCR) Not Detected (NotDetected) Coronavirus NL63 (PCR) Not Detected (NotDetected) Human Metapneumovir PCR Not Detected (NotDetected) Influenza Type A (PCR) Not Detected (NotDetected) Influenza Type B (PCR) Not Detected (NotDetected) M. pneumoniae (PCR) Not Detected (NotDetected) Parainfluenza 1 (PCR) Not Detected (NotDetected) Parainfluenza 2 (PCR) Not Detected (NotDetected) Parainfluenza 3 (PCR) Not Detected (NotDetected) Parainfluenza 4 (PCR) Not Detected (NotDetected) RSV (PCR) Not Detected (NotDetected) Entero/Rhino (PCR) Not Detected (NotDetected) 03/05/24 Range/Units 02:21 WBC (4.8-10.8) K/ul RBC (4.20-5.40) M/uL Hgb (12.0-16.0) g/dl POC Hgb (12.0-16.0) g/dl Hct (37.0-47.0) % POC Hct (37-47) % MCV (80.0-100.0) fL MCH (25.0-34.0) pg MCHC (32.0-36.0) g/dL RDW Std Deviation (36.4-46.3) fL RDW Coeff of [place] (11.5-14.5) % Plt Count (130-400) K/uL MPV (9.4-12.4) fL Immature Gran % (Auto) % Neut % (Auto) % Lymph % (Auto) % [place] % (Auto) % Eos % (Auto) % Baso % (Auto) % Neut # (Auto) (1.40-6.50) K/uL Lymph # (Auto) (1.20-3.40) K/uL [place] # (Auto) (0.11-0.59) K/uL Eos # (Auto) (0.00-0.50) K/uL Baso # (Auto) (0.00-0.20) K/uL Immature Gran # (Auto) (0.01-0.20) K/uL Absolute Nucleated RBC (0.00-0.12) K/uL Nucleated RBC % (auto) % Anisocytosis POC Sodium (135-144) mmol/L Sodium (136-145) mmol/L POC Potassium (3.3-5.0) mmol/L Potassium (3.5-5.1) mmol/L POC Chloride (101-112) mmol/L Chloride (98-107) mmol/L Carbon Dioxide (21-32) mmol/L POC Total CO2 (24-31) mmol/L Anion Gap (3-11) POC Anion Gap (16-25) mmol/L POC BUN (7-18) mg/dl BUN (6-23) mg/dl Creatinine (0.6-1.2) mg/dl POC Creatinine (0.6-1.3) mg/dl Est Cr Clr Drug Dosing ml/min Est GFR ( Amer) ml/min Est GFR (Non-Af Amer) ml/min BUN/Creatinine Ratio (10-20) Glucose (70-99(Fasting)) mg/dl POC Glucose (other) (70-99) mg/dl Lactate 3.3 H* (0.4-2.0) mmol/L Calcium (8.6-10.3) mg/dl POC Ioniz Calcium Cheryl (1.12-1.32) mmol/l Magnesium (1.7-2.4) mg/dl Total Bilirubin (0.2-1.0) mg/dl Direct Bilirubin (0-0.2) mg/dl AST (13-39) U/L ALT (7-52) U/L Alkaline Phosphatase (34-104) U/L Ammonia (18-72) umol/L Troponin I High Sens 40.0 H (0-14) pg/ml Total Protein (6.0-8.3) gm/dl Albumin (3.4-5.0) gm/dl Procalcitonin (0-0.5) ng/ml Urine Color Urine Appearance (Clear) Urine pH (4.5-7.5) Ur Specific [place] (1.000-1.030) Urine Protein (Negative) Urine Glucose (UA) (Negative) Urine Ketones (Negative) Urine Blood (Negative) Urine Nitrite (Negative) Urine Bilirubin (Negative) Urine Urobilinogen (Negative) Ur Leukocyte Esterase (Negative) Urine WBC (Auto) (0-5) /hpf Urine RBC (Auto) (0-2) /hpf U Hyaline Cast (Auto) (0-2) /lpf U Epithel Cells (Auto) (0-2) /hpf Urine Bacteria (Auto) (None Seen) Urine Mucus (None Prsent) Adenovirus (PCR) (NotDetected) B. pertussis DNA (PCR) (NotDetected) B.parapertussis DNA PCR (NotDetected) C. pneumoniae DNA (PCR) (NotDetected) Coronavirus OC43 (PCR) (NotDetected) Coronavirus HKU1 (PCR) (NotDetected) Coronavirus 229E (PCR) (NotDetected) SARS-CoV-2 (PCR) (NotDetected) Coronavirus NL63 (PCR) (NotDetected) Human Metapneumovir PCR (NotDetected) Influenza Type A (PCR) (NotDetected) Influenza Type B (PCR) (NotDetected) M. pneumoniae (PCR) (NotDetected) Parainfluenza 1 (PCR) (NotDetected) Parainfluenza 2 (PCR) (NotDetected) Parainfluenza 3 (PCR) (NotDetected) Parainfluenza 4 (PCR) (NotDetected) RSV (PCR) (NotDetected) Entero/Rhino (PCR) (NotDetected) Imaging Data Radiologist's Impression: Head CT 03/05/24 00:55 Exam(s): CT HEAD Without Contrast EXAM: CT Head Without Intravenous Contrast CLINICAL HISTORY: Reason for exam: ams. TECHNIQUE: Axial computed tomography images of the head/brain without intravenous contrast. CTDI is 37.61 mGy and DLP is 624.41 mGy-cm. Automated exposure control was utilized for the study. A dose lowering technique was utilized adhering to the principles of ALARA. COMPARISON: Brain MRI January 23, 2024. FINDINGS: No acute intracranial hemorrhage. No midline shift or mass effect. The territorial velasquez-white matter differentiation is maintained throughout. Age-related cerebral volume loss. Periventricular and subcortical white matter hypoattenuation, consistent with chronic microangiopathy. The visualized orbits appear grossly unremarkable. The calvarium is intact. The visualized paranasal sinuses and mastoid air cells are grossly clear. IMPRESSION: No acute intracranial hemorrhage, midline shift, or mass effect. Electronically signed by: Marek Macdonald MD 03/05/24 03:04 AM MDM Narrative Physical exam and history were performed. Nursing notes, EMR, and Medication List were personally reviewed. No social concerns were identified as barriers to patients care. Patient appears to have fever with altered mental status. Patient is with fever and tachycardia on presentation. IV access was established and labs were obtained. Patient was given fluid bolus based on ideal body weight. Urine was collected. Blood cultures and lactic were gathered. Patient was given IV Tylenol for her fever. Case was discussed with my attending, Dr Gottlieb, who also independently evaluated the patient and remained involved in care and decision making An order was placed for continuous cardiac monitoring. The monitor shows a rate of 96 with normal sinus rhythm. Patient's blood work is as above and was reviewed. She does not have a significantly elevated white blood cell count. Hemoglobin is 16.1. Transaminases are not diagnostic. Lactic acid is elevated at 2.2, and repeat is 3.3. Troponin is slightly elevated at 40. Urine is very concerning for infection. Patient's past urine cultures were reviewed. On 01/23/2024 she did have a urinalysis with pansensitive E. coli. On 02/20/2024 she did have a resistant Enterococcus infection. Because of this the patient was ordered Rocephin and vancomycin. Patient's family did arrive at bedside, and were updated regarding the patient's status. Overall the patient does not appear well for discharge home. Escalation of care is felt to be necessary. Case was discussed with the on-call hospitalist, who agreed to evaluate patient here in the ER. Please see their dictation for further patient course, plan, disposition. The chart was completed utilizing [employer] Speech Voice Recognition Software. Grammatical errors, random word insertions, pronoun errors, and incomplete sentences are an occasional consequence of this system due to software limitations, ambient noise, and hardware issues. Any formal questions or concerns about the content, text, or information contained within the body of this dictation should be directly addressed to the provider for clarification. . Impression & Plan Sepsis, AMS (altered mental status) Discharge Plan Visit Data Chief Complaint: Fever Stated Complaint: SEPSIS, FEVER, AMS ED Provider: Amy Gottlieb ED Midlevel Provider: Osman Jamil Discharge Problem: Sepsis, AMS (altered mental status) Forms Stand Alone Forms: [employer] [facility] Prescriptions Prescriptions: No Action multivitamin Tablet 1 tab PO QAM atorvastatin 40 mg Tablet 40 mg PO HS acetaminophen 325 mg Tablet 650 mg PO Q6 PRN (Reason: Fever) omeprazole 20 mg Capsule,Delayed Release(Dr/Ec) 20 mg PO AMHS Lactobacillus acidophilus Capsule 1 cap PO BID albuterol sulfate 90 mcg/actuation Hfa Aerosol Inhaler 2 puff INHALATION Q4H PRN (Reason: Shortness Of Breath) fluticasone propionate 50 mcg/actuation [place],Suspension 1 spray INTRANASAL QAM Trelegy Ellipta 100-62.5-25 mcg Blister With Device 1 inh INHALATION QAM latanoprost 0.005 % drops 1 drp OPB HS Patient Comments: both eyes ropinirole 1 mg tablet 1 mg PO HS cyanocobalamin (vitamin B-12) [Vitamin B-12] 100 mcg Tablet 100 mcg PO QAM albuterol sulfate 2.5 mg /3 mL (0.083 %) Solution For Nebulization 2.5 mg INHALATION Q4 PRN (Reason: Shortness Of Breath Or Wheezing) divalproex 500 mg tablet,delayed release (DR/EC) 500 mg PO BID cholecalciferol (vitamin D3) [Vitamin D3] 25 mcg (1,000 unit) Capsule 25 mcg PO QAM gabapentin 300 mg capsule 300 mg PO BID metformin 1,000 mg tablet 1,000 mg PO BID aspirin 81 mg tablet,delayed release (DR/EC) 81 mg PO QAM miconazole nitrate 2 % Powder 1 applic TOPICAL BID Rx Instructions: apply under breasts loratadine 10 mg Tablet 10 mg PO DAILY acetaminophen [Tylenol Extra Strength] 500 mg Tablet 1,000 mg PO Q8 ceftriaxone 1 gram recon soln 1 g IM DAILY Rx Instructions: x 3 days ordered 03/04/24 furosemide 40 mg tablet 40 mg PO DAILY insulin glargine 100 unit/mL Solution 8 unit SUBCUT HS melatonin 5 mg Tablet 5 mg PO HS PRN (Reason: Insomnia) Eliquis 5 mg tablet 5 mg PO BID potassium chloride 20 mEq Tablet Extended Release 40 meq PO DAILY oxycodone 5 mg tablet 5 mg PO Q6H PRN (Reason: moderate to severe pain) Referrals Referrals: Jay Chatterjee [Primary Care Provider] -
[2024-03-05] MEDS: LACTATED RINGER'S 1,000 ML IV ONE ×2 (01:52→03:01)
[2024-03-05] MEDS: CEFEPIME 2,000 MG/20 ML VIAL IV STA (01:53)
--- NOTE | 2024-03-05 02:28 | History & Physical Report ---
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 DVT prophylaxis. Eliquis Full code Patient daughter requesting updates providers. Don Patrick, contact #[phone]. Text document was generated using [email or web address] voice recognition software. It may contain grammatical or spelling errors. Kindly contact undersigned for clarification of any documentation item in question. History of Present Illness Chief Complaint: worsening confusion, UTI Primary Care Provider: Jay Chatterjee History obtained from patient, family, and records. Unable to obtain history from patient secondary to obtunded state. Medical history significant for chronic diastolic heart failure (55%, TTE 2023), hx nonocclusive CAD, hypertension, COPD, possible MIKE, DM 2 insulin requiring, history ataxia, myoclonic epilepsy as per records, possible RLS, GERD, right breast cancer status post surgery/radiotherapy, anxiety/mood disorder, overactive bladder as per records, recurrent UTIs, dementia, DVT on Eliquis, past tobacco abuse. Last [facility] confinement January 2024 for encephalopathy secondary to UTI, rule out subclinical seizures. Patient transferred to [facility] for further evaluation where she was admitted from January 25 to February 09, 2024. 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 Patient presentation attributed to dementia. Patient discharged to [facility] 2 days ago, patient noted to be more confused as usual. Not talking a lot as per daughter. Outpatient ceftriaxone initiated for possible UTI. Worsening confusion despite antibiotic Rx. Patient unable to answer questions regarding headache, chest pain, SOB, cough, abdominal pain. Patient brought to the ER for evaluation. Ceftriaxone administered at the ER. 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 Allergies Allergy/AdvReac Type Severity Reaction Status Date / Time dog dander Allergy Unknown Sneezing, Verified 07/28/23 06:51 itchy eyes/throat grass pollen-perennial rye, Allergy Unknown Sneezing, Verified 07/28/23 06:51 standar itchy eyes/throat Home Medications Medication Instructions Recorded Confirmed Type Lactobacillus acidophilus 1 cap PO BID 11/03/20 03/05/24 History acetaminophen 325 mg tablet 650 mg PO Q6 PRN Fever 11/03/20 03/05/24 History albuterol sulfate 90 mcg/actuation 2 puff inhalation Q4H PRN 11/03/20 03/05/24 History aerosol inhaler Shortness Of Breath atorvastatin 40 mg tablet 40 mg PO HS 11/03/20 03/05/24 History fluticasone fur. 100 mcg-umeclid 1 inh inhalation QAM 11/03/20 03/05/24 History 62.5 mcg-vilant 25 mcg inhalat.powder (Trelegy Ellipta) fluticasone propionate 50 1 spray intranasal QAM 11/03/20 03/05/24 History mcg/actuation nasal spray,suspension multivitamin 1 tab PO QAM 11/03/20 03/05/24 History omeprazole 20 mg capsule,delayed 20 mg PO AMHS 11/03/20 03/05/24 History release albuterol sulfate 2.5 mg/3 mL 2.5 mg inhalation Q4 PRN Shortness 02/25/23 0 03/05/24 History (0.083 %) solution for nebulization Of Breath Or Wheezing cholecalciferol (vitamin D3) 25 25 mcg PO QAM 02/25/23 03/05/24 History mcg (1,000 unit) capsule (Vitamin D3) cyanocobalamin (vitamin B-12) 100 100 mcg PO QAM 02/25/23 03/05/24 History mcg tablet (Vitamin B-12) divalproex 500 mg tablet,delayed 500 mg PO BID 02/25/23 03/05/24 History release latanoprost 0.005 % eye drops 1 drp OPB HS 02/25/23 03/05/24 History ropinirole 1 mg tablet 1 mg PO HS 02/25/23 03/05/24 History gabapentin 300 mg capsule 300 mg PO BID 03/28/23 03/05/24 History apixaban 5 mg tablet (Eliquis) 5 mg PO BID 01/23/24 03/05/24 History furosemide 40 mg tablet 40 mg PO DAILY 01/23/24 03/05/24 History insulin glargine 100 unit/mL 8 unit subcut HS 01/23/24 03/05/24 History subcutaneous solution melatonin 5 mg tablet 5 mg PO HS PRN Insomnia 01/23/24 03/05/24 History oxycodone 5 mg tablet 5 mg PO Q6H PRN moderate to severe 01/23/24 03/05/24 History pain potassium chloride 20 mEq 40 meq PO DAILY 01/23/24 03/05/24 History tablet,extended release acetaminophen 500 mg tablet 1,000 mg PO Q8 03/05/24 03/05/24 History (Tylenol Extra Strength) aspirin 81 mg tablet,delayed 81 mg PO QAM 03/05/24 03/05/24 History release ceftriaxone 1 gram solution for 1 g IM DAILY 03/05/24 03/05/24 History injection loratadine 10 mg tablet 10 mg PO DAILY 03/05/24 03/05/24 History metformin 1,000 mg tablet 1,000 mg PO BID 03/05/24 03/05/24 History miconazole nitrate 2 % topical 1 applic topical BID 03/05/24 03/05/24 History powder Past Med/Surg History Problem List (Updated 03/05/24 @ 03:26 by Osman Jamil PA-C) AMS (altered mental status) (Acute) Sepsis (Acute) Palliative care by specialist Discussion about advance care planning held with family member Impaired swallowing Malnutrition Facial droop Garbled speech Confusion Weakness generalized Leg weakness Encephalopathy Morbid obesity with BMI of 40.0-44.9, adult Myoclonic epilepsy Chronic obstructive pulmonary disease Hypertension Hyperlipidemia Ataxia uses walker Myoclonic jerking Dr. Del Castillo EEG 04/2020: "Normal" awake and sleep EEG. No evidence of focal slowing or epileptiform activity. Anxiety Diabetes mellitus, type 2 CAD (coronary artery disease) Cardiac cath 04/2018- mild nonobstructive CAD Acute alteration in mental status (Acute) Morbid obesity with BMI of 45.0-49.9, adult Hypoxia (Acute) Morbid obesity Fall Ambulatory dysfunction Accidental overdose Polypharmacy (Acute) Metabolic encephalopathy Hypokalemia (Acute) UTI (urinary tract infection) Medical History Cognitive deficit due to and not concurrent with cerebrovascular disease Urinary incontinence Chronic Overactive bladder Glaucoma Claustrophobia Osteoarthritis of knees, bilateral BPPV (benign paroxysmal positional vertigo) History of sepsis History of melanoma back History of right breast cancer Dx 1997- chemo/radiation/surgery Surgical History Status post left knee replacement (~07/2023) Family history of reaction to anesthesia Daughter PONV History of right breast biopsy malignant History of cholecystectomy History of appendectomy History of colonoscopy History of Mohs micrographic surgery for skin cancer History of lumpectomy of right breast History of tooth extraction History of bilateral cataract extraction History of cardiac cath ~2017 ([facility])- no stents Family History Brother Family hx of colon cancer Father Family hx of colon cancer Sister Family history of diabetes mellitus Daughter Family history of reaction to anesthesia nausea/vomiting/migraine Mother Family history of diabetes mellitus Brother Family history of diabetes mellitus Family hx colonic polyps Social History Smoking Status: Never smoker Second Hand Exposure: No; Do You Dip or Chew Tobacco: No; Tobacco Cessation Education Requested by Patient: No Hx Alcohol Use: No Hx Substance Use: No Preferred Language: Bahamian Communication Ability: Impaired Communication Ability Comment: Confused Radio Technician Required: No Beliefs That Will Affect Care: Yazdanism Yazdanism Beliefs: Jew Current Living Situation: Retirement Current Living Situation Comment: lives at home with Other Information That Helps Us Care for You: No Feels Safe at Home: Yes Assistive Devices: Brace/Splint/Immobilizer and Denture - Upper Review of Systems Review of Systems: Could not be reliably obtained secondary to obtunded state Physical Exam Physical Exam: GENERAL: Obtunded, obese, no respiratory distress SKIN: Normal color, warm HEENT: [place] palpebral conjunctivae, no ptosis, dry buccal mucosa NECK : Supple, short neck, no tenderness CHEST : Decreased breath sounds, no tenderness HEART : RRR, no obvious murmurs ABDOMEN: Some distention, nontender EXTREMITIES : Minimal LE swelling, no LE tenderness, no other conspicuous deformities noted NEUROLOGIC : Obtunded , no facial asymmetry, gait and stance not assessed Results & Data Results & Data Vital Signs (Past 12 Hours) Vital Signs Temp Pulse Pulse Resp BP BP Pulse Ox 03/05/24 01:54 100 H 18 94 03/05/24 01:39 102 H 15 95 03/05/24 01:21 111 H 21 97 03/05/24 01:00 109 H 21 136/80 97 03/05/24 00:50 38.5 C H 03/05/24 00:33 115 H 24 97 03/05/24 00:27 117 H 24 97 03/05/24 00:03 128 H 28 H 153/96 H 97 03/04/24 23:48 136 H 27 H 99 03/04/24 23:36 134 H 29 H 97 03/04/24 23:24 137 H 32 H 97 03/04/24 23:18 97 03/04/24 23:03 132 H 33 H 89 L 03/04/24 23:02 134/97 03/04/24 23:01 130 H 03/04/24 22:52 40.2 C H 131 H 30 H 134/97 97 03/04/24 22:52 40.2 C H 131 H 30 H 134/97 97 O2 Del Method O2 Flow Rate 03/05/24 01:54 03/05/24 01:39 03/05/24 01:21 03/05/24 01:00 Nasal Cannula 2 03/05/24 00:50 03/05/24 00:33 03/05/24 00:27 03/05/24 00:03 Nasal Cannula 2 03/04/24 23:48 03/04/24 23:36 03/04/24 23:24 03/04/24 23:18 Nasal Cannula 2 03/04/24 23:03 03/04/24 23:02 03/04/24 23:01 03/04/24 22:52 Nasal Cannula 2 03/04/24 22:52 Nasal Cannula 2 Laboratory Results Laboratory Results WBC 11.00 K/ul (4.8-10.8) H 03/04/24 23:13 RBC 6.07 M/uL (4.20-5.40) H 03/04/24 23:13 Hgb 16.1 g/dl (12.0-16.0) H 03/04/24 23:13 POC Hgb 16.3 g/dl (12.0-16.0) H 03/04/24 23:21 Hct 48.6 % (37.0-47.0) H 03/04/24 23:13 POC Hct 48 % (37-47) H 03/04/24 23:21 MCV 80.1 fL (80.0-100.0) 03/04/24 23:13 MCH 26.5 pg (25.0-34.0) 03/04/24 23:13 MCHC 33.1 g/dL (32.0-36.0) 03/04/24 23:13 RDW Std Deviation 55.2 fL (36.4-46.3) H 03/04/24 23:13 RDW Coeff of [place] 20.1 % (11.5-14.5) H 03/04/24 23:13 Plt Count 254 K/uL (130-400) 03/04/24 23:13 MPV 10.1 fL (9.4-12.4) 03/04/24 23:13 Immature Gran % (Auto) 0.6 % 03/04/24 23:13 Neut % (Auto) 69.0 % 03/04/24 23:13 Lymph % (Auto) 19.4 % 03/04/24 23:13 Walsh % (Auto) 10.5 % 03/04/24 23:13 Eos % (Auto) 0.0 % 03/04/24 23:13 Baso % (Auto) 0.5 % 03/04/24 23:13 Neut # (Auto) 7.58 K/uL (1.40-6.50) H 03/04/24 23:13 Lymph # (Auto) 2.13 K/uL (1.20-3.40) 03/04/24 23:13 Walsh # (Auto) 1.16 K/uL (0.11-0.59) H 03/04/24 23:13 Eos # (Auto) 0.00 K/uL (0.00-0.50) 03/04/24 23:13 Baso # (Auto) 0.06 K/uL (0.00-0.20) 03/04/24 23:13 Immature Gran # (Auto) 0.07 K/uL (0.01-0.20) 03/04/24 23:13 Absolute Nucleated RBC 0.05 K/uL (0.00-0.12) 03/04/24 23:13 Nucleated RBC % (auto) 0.5 % 03/04/24 23:13 Anisocytosis Present 03/04/24 23:13 POC Sodium 143 mmol/L (135-144) 03/04/24 23:21 Sodium 142 mmol/L (136-145) 03/04/24 23:13 POC Potassium 4.8 mmol/L (3.3-5.0) 03/04/24 23:21 Potassium 4.7 mmol/L (3.5-5.1) 03/04/24 23:13 POC Chloride 111 mmol/L (101-112) 03/04/24 23:21 Chloride 108 mmol/L (98-107) H 03/04/24 23:13 Carbon Dioxide 25 mmol/L (21-32) 03/04/24 23:13 POC Total CO2 23 mmol/L (24-31) L 03/04/24 23:21 Anion Gap 9 (3-11) 03/04/24 23:13 POC Anion Gap 15.0 mmol/L (16-25) L 03/04/24 23:21 POC BUN 33 mg/dl (7-18) H 03/04/24 23:21 BUN 38 mg/dl (6-23) H 03/04/24 23:13 Creatinine 0.87 mg/dl (0.6-1.2) 03/04/24 23:13 POC Creatinine 0.8 mg/dl (0.6-1.3) 03/04/24 23:21 Est Cr Clr Drug Dosing 61.9 ml/min 03/04/24 23:13 Est GFR ( Amer) 76.6 ml/min 03/04/24 23:13 Est GFR (Non-Af Amer) 66.1 ml/min 03/04/24 23:13 BUN/Creatinine Ratio 43.7 (10-20) H 03/04/24 23:13 Glucose 167 mg/dl (70-99(Fasting)) H 03/04/24 23:13 POC Glucose (other) 172 mg/dl (70-99) H 03/04/24 23:21 Lactate 2.2 mmol/L (0.4-2.0) H* 03/04/24 23:13 Calcium 8.9 mg/dl (8.6-10.3) 03/04/24 23:13 POC Ioniz Calcium Cheryl 1.18 mmol/l (1.12-1.32) 03/04/24 23:21 Magnesium 2.2 mg/dl (1.7-2.4) 03/04/24 23:13 Total Bilirubin 0.6 mg/dl (0.2-1.0) 03/04/24 23:13 Direct Bilirubin 0.2 mg/dl (0-0.2) 03/04/24 23:13 AST 48 U/L (13-39) H 03/04/24 23:13 ALT 25 U/L (7-52) 03/04/24 23:13 Alkaline Phosphatase 75 U/L (34-104) 03/04/24 23:13 Ammonia 22.0 umol/L (18-72) 03/04/24 23:13 Troponin I High Sens 39.0 pg/ml (0-14) H 03/04/24 23:13 Total Protein 7.0 gm/dl (6.0-8.3) 03/04/24 23:13 Albumin 3.6 gm/dl (3.4-5.0) 03/04/24 23:13 Procalcitonin 0.13 ng/ml (0-0.5) 03/04/24 23:13 Urine Color Dark Yellow 03/04/24 23:13 Urine Appearance Turbid (Clear) A 03/04/24 23:13 Urine pH 6.0 (4.5-7.5) 03/04/24 23:13 Ur Specific [place] 1.030 (1.000-1.030) 03/04/24 23:13 Urine Protein 2+ (Negative) H 03/04/24 23:13 Urine Glucose (UA) Negative (Negative) 03/04/24 23:13 Urine Ketones 1+ (Negative) H 03/04/24 23:13 Urine Blood 1+ (Negative) H 03/04/24 23:13 Urine Nitrite Positive (Negative) A 03/04/24 23:13 Urine Bilirubin Negative (Negative) 03/04/24 23:13 Urine Urobilinogen Negative (Negative) 03/04/24 23:13 Ur Leukocyte Esterase 3+ (Negative) H 03/04/24 23:13 Urine WBC (Auto) >50 /hpf (0-5) H 03/04/24 23:13 Urine RBC (Auto) 3-5 /hpf (0-2) H 03/04/24 23:13 U Hyaline Cast (Auto) >20 /lpf (0-2) H 03/04/24 23:13 U Epithel Cells (Auto) >20 /hpf (0-2) H 03/04/24 23:13 Urine Bacteria (Auto) 4+ (None Seen) H 03/04/24 23:13 Urine Mucus Present (None Prsent) A 03/04/24 23:13 Adenovirus (PCR) Not Detected (NotDetected) 03/04/24 23:44 B. pertussis DNA (PCR) Not Detected (NotDetected) 03/04/24 23:44 B.parapertussis DNA PCR Not Detected (NotDetected) 03/04/24 23:44 C. pneumoniae DNA (PCR) Not Detected (NotDetected) 03/04/24 23:44 Coronavirus OC43 (PCR) Not Detected (NotDetected) 03/04/24 23:44 Coronavirus HKU1 (PCR) Not Detected (NotDetected) 03/04/24 23:44 Coronavirus 229E (PCR) Not Detected (NotDetected) 03/04/24 23:44 SARS-CoV-2 (PCR) Not Detected (NotDetected) 03/04/24 23:44 Coronavirus NL63 (PCR) Not Detected (NotDetected) 03/04/24 23:44 Human Metapneumovir PCR Not Detected (NotDetected) 03/04/24 23:44 Influenza Type A (PCR) Not Detected (NotDetected) 03/04/24 23:44 Influenza Type B (PCR) Not Detected (NotDetected) 03/04/24 23:44 M. pneumoniae (PCR) Not Detected (NotDetected) 03/04/24 23:44 Parainfluenza 1 (PCR) Not Detected (NotDetected) 03/04/24 23:44 Parainfluenza 2 (PCR) Not Detected (NotDetected) 03/04/24 23:44 Parainfluenza 3 (PCR) Not Detected (NotDetected) 03/04/24 23:44 Parainfluenza 4 (PCR) Not Detected (NotDetected) 03/04/24 23:44 RSV (PCR) Not Detected (NotDetected) 03/04/24 23:44 Entero/Rhino (PCR) Not Detected (NotDetected) 03/04/24 23:44 Diagnostic Findings Chest x-ray as per my interpretation elevated right hemidiaphragm, no congestion EKG as per my interpretation : Rate 130, sinus tachycardia, normal axis, nonspecific T wave abnormalities
--- NOTE | 2024-03-05 03:04 | CT Scan Report ---
Exam(s): CT HEAD Without Contrast EXAM: CT Head Without Intravenous Contrast CLINICAL HISTORY: Reason for exam: ams. TECHNIQUE: Axial computed tomography images of the head/brain without intravenous contrast. CTDI is 37.61 mGy and DLP is 624.41 mGy-cm. Automated exposure control was utilized for the study. A dose lowering technique was utilized adhering to the principles of ALARA. COMPARISON: Brain MRI January 23, 2024. FINDINGS: No acute intracranial hemorrhage. No midline shift or mass effect. The territorial velasquez-white matter differentiation is maintained throughout. Age-related cerebral volume loss. Periventricular and subcortical white matter hypoattenuation, consistent with chronic microangiopathy. The visualized orbits appear grossly unremarkable. The calvarium is intact. The visualized paranasal sinuses and mastoid air cells are grossly clear. IMPRESSION: No acute intracranial hemorrhage, midline shift, or mass effect. Electronically signed by: Marek Macdonald MD 03/05/24 03:04 AM
[2024-03-05] MEDS ORDERED: PROMETHAZINE HCL 6.25 MG in SODIUM CHLORIDE 0.9% 50 ML IV PRN (03:12)
--- NOTE | 2024-03-05 03:48 | CT Scan Report ---
Exam(s): CT ABDOMEN + PELVIS Without Contrast EXAM: CT Abdomen and Pelvis Without Intravenous Contrast CLINICAL HISTORY: pain, recurrent uti. TECHNIQUE: Axial computed tomography images of the abdomen and pelvis without intravenous contrast. CTDI is 28.14 mGy and DLP is 1556.11 mGy-cm. Automated exposure control was utilized for the study. A dose lowering technique was utilized adhering to the principles of ALARA. COMPARISON: Contrast CT abdomen and pelvis dated 02/25/2023 FINDINGS: Lung bases: Unremarkable. No mass. No consolidation. ABDOMEN: Liver: Unremarkable. Gallbladder and bile ducts: Cholecystectomy. No ductal dilation. Pancreas: Unremarkable. No ductal dilation. Spleen: Unremarkable. No splenomegaly. Adrenals: Unremarkable. No mass. Kidneys and ureters: Unremarkable. No obstructing stones. No hydronephrosis. Stomach and bowel: No evidence for bowel obstruction. Evaluation of the bowel mucosa is limited without contrast and respiratory artifact; however, no definite focal asymmetry suggested. PELVIS: Appendix: The appendix is not clearly delineated. No secondary findings to suggest acute appendicitis. Bladder: The Hercules catheter balloon is noted in the vagina. No stones. Reproductive: Stable calcifications in the left posterior uterus. ABDOMEN and PELVIS: Intraperitoneal space: Unremarkable. No free air. No significant fluid collection. Bones/joints: No acute fracture. No dislocation. Soft tissues: Unremarkable. Vasculature: The aorta is normal in caliber. Atherosclerotic calcification noted involving the aorta and iliac arteries. No abdominal aortic aneurysm. Lymph nodes: Unremarkable. No enlarged lymph nodes. IMPRESSION: 1. The Hercules catheter balloon is noted in the vagina. Recommend removal. 2. The bladder is mildly distended without bladder wall thickening or bladder stones. The unenhanced kidneys are unremarkable. No hydronephrosis or ureteral stones. No significant perinephric abnormality. 3. No bowel obstruction. No free intraperitoneal fluid or pneumoperitoneum. Electronically signed by: Rodrigo Oswald MD 03/05/24 03:47 AM
[2024-03-05] MEDS ORDERED: GLUCOSE 40% GEL 15 GM TUBE PO PRN (05:17)
[2024-03-05] MEDS ORDERED: GLUCOSE 10 TAB/TUBE PO PRN (05:17)
[2024-03-05] MEDS ORDERED: DEXTROSE 50% 50 ML SYRINGE IV PRN (05:17)
[2024-03-05] MEDS ORDERED: GLUCAGON FOR INJ 1 MG VIAL SQ PRN (05:17)
[2024-03-05] MEDS ORDERED: ACETAMINOPHEN 325 MG TAB PO PRN (05:17)
[2024-03-05] MEDS ORDERED: CARBOHYDRATES FOR HYPOGLYCEMIA PO PRN (05:17)
[2024-03-05] MEDS: INSULIN ASPART PER UNIT CHARGE SC SCH (06:37)
[2024-03-05] MEDS: KETOROLAC TROMETHAMINE 15 MG/ML VIAL IV ONE (06:43)
[2024-03-05 06:50] LABS: Base Excess VBG -2.2 mEq/L; HCO3 VBG 23 mmol/L; Oxygen Saturation VBG 68.3 %; PCO2 VBG 41 mmHg (38-50); PO2 VBG 44 mmHg; pH VBG 7.36 (7.36-7.41)
--- NOTE | 2024-03-05 06:56 | XRay Report ---
XR chest 1V portable HISTORY: 74 years-old Female Sepsis COMPARISON: 01/23/2024 TECHNIQUE: AP view of the chest FINDINGS: Cardiomediastinal and hilar silhouettes are within normal limits. Atherosclerosis of the aorta. Mild right hemidiaphragmatic elevation. No pneumothorax, pleural effusion, airspace consolidation or pulmo nary edema. Bones appear grossly intact. Right upper abdominal surgical clips. IMPRESSION: No acute process. ACT 112: Negative or not required by law. The above report was generated using voice recognition software. It may contain grammatical, syntax o r spelling errors. Electronically signed by: Eulogio Houston M.D. 03/05/2024 6:54 AM
[2024-03-05 07:00] LABS: Basophils # (auto) 0.09 K/uL (0.00-0.20); Basophils % (auto) 0.7 %; Eosinophils # (auto) 0.01 K/uL (0.00-0.50); Eosinophils % (auto) 0.1 %; Hematocrit (blood only) 42.1 % (37.0-47.0); Hemoglobin 13.5 g/dl (12.0-16.0); Immature Granulocytes # (auto) 0.09 K/uL (0.01-0.20); Immature Granulocytes % (auto) 0.7 %; Lymphocytes # (auto) 3.11 K/uL (1.20-3.40); Lymphocytes % (auto) 24.4 %; Mean Corpuscular Hemoglobin 26.3 pg (25.0-34.0); Mean Corpuscular Hgb Conc 32.1 g/dL (32.0-36.0); Mean Corpuscular Volume 81.9 fL (80.0-100.0); Mean Platelet Volume 10.3 fL (9.4-12.4); Monocytes # (auto) 1.21 K/uL (0.11-0.59); Monocytes % (auto) 9.5 %; Neutrophils # (auto) 8.21 K/uL (1.40-6.50); Neutrophils % (auto) 64.6 %; Nucleated RBC # (auto) 0.04 K/uL (0.00-0.12); Nucleated RBC % (auto) 0.3 %; Platelet Count 157 K/uL (130-400); RDW Coefficient of Variation 19.4 % (11.5-14.5); RDW Standard Deviation 56.1 fL (36.4-46.3); Red Blood Count 5.14 M/uL (4.20-5.40); White Blood Count 12.72 K/ul (4.8-10.8)
[2024-03-05 07:09] LABS: Potassium 4.2 mmol/L (3.5-5.1)
[2024-03-05 07:14] LABS: BUN Creatinine Ratio 54.8 (10-20); Creatinine Clr Calc Pharmacy 83.3 ml/min; Est GFR (African American) 103.7 ml/min; Est GFR (Non-African American) 89.5 ml/min
[2024-03-05 07:43] LABS: Appearance Urine Cloudy (Clear); Bacteria Urine Automated None Seen (None Seen); Bilirubin Urine Negative (Negative); Blood Urine Negative (Negative); Color Urine Dark Yellow; Glucose Urine UA Negative (Negative); Ketones Urine 1+ (Negative); Leukocyte Esterase Urine Negative (Negative); Nitrite Urine Negative (Negative); Protein Urine 1+ (Negative); Urobilinogen Urine Negative (Negative); pH Urine 5.5 (4.5-7.5)
[2024-03-05] MEDS: DIVALPROEX DELAY RELEASE 500 MG TAB PO SCH (08:37)
[2024-03-05] MEDS: ASPIRIN 81 MG ECTAB PO SCH (08:38)
[2024-03-05] MEDS: GABAPENTIN 300 MG CAP PO SCH (08:39)
[2024-03-05] MEDS: LORATADINE 10 MG TAB PO SCH (08:40)
[2024-03-05] MEDS: CYANOCOBALAMIN (B-12) 100 MCG TABLET PO SCH (08:41)
[2024-03-05] MEDS: APIXABAN 5 MG TABLET PO SCH (08:42)
[2024-03-05] MEDS: MULTIVITAMIN TAB PO SCH (08:43)
[2024-03-05] MEDS: PANTOprazole 40 MG TAB PO SCH (08:44)
[2024-03-05] MEDS: ADVANCED PROBIOTIC 625 MG CAPSULE PO SCH (08:45)
[2024-03-05] MEDS: FLUTICASONE PROPIONATE NA SPR 16 GM BTL SCH (08:46)
[2024-03-05] MEDS: UMECLIDINIUM/VILANTEROL 62.5/25MCG 7 PUFFS/INHALER INH SCH (08:48)
[2024-03-05] MEDS: FLUTICASONE FUROATE 100MCG 14 PUFFS/INHALER INH SCH (08:49)
[2024-03-05] MEDS ORDERED: NON-FORMULARY MEDICATION (Fluticasone-Umeclidin-Vilanter [Trelegy Ellipta] 100-62.5-25 mcg INH SCH (09:00)
[2024-03-05] MEDS: ACETAMINOPHEN 500 MG TAB PO SCH (09:20)
[2024-03-05] MEDS: AZTREONAM 2,000 MG in DEXTROSE 5% MINI-B 100 ML IV SCH (11:36)
--- NOTE | 2024-03-05 12:39 | Communication Note ---
Date of Service: March 05, 2024 Patient was seen and examined at bedside as a follow-up of severe sepsis POA likely secondary to complicated UTI ISO overactive bladder. obstructive uropathy ruled out per CT scan. Urine culture preliminary positive - gnb, follow final. Follow blood culture. Continue with aztreonam. Discussed with patient's daughter and significant other at bedside, they would like palliative care on board and discuss further goals of care. Patient on examination was alert, oriented x 1 [per patient's daughter this is her new baseline], patient's vitals including heart rate and temperature getting better. For detailed information on the patient, refer to today's H&P note.
[2024-03-05] MEDS: ATORVASTATIN 40 MG TAB PO SCH (20:26)
[2024-03-05] MEDS: rOPINIRole HCL 1 MG TABLET PO SCH (20:27)
[2024-03-05] MEDS ORDERED: LANTUS PER UNIT CHARGE SQ SCH (21:00)
[2024-03-05] MEDS: LANTUS PER UNIT CHARGE SQ SCH (22:09)
[2024-03-05] MEDS: LATANOPROST 0.005% OP SOLN 2.5 ML BTL OPB SCH (22:39)
[2024-03-05 23:00] LABS: A calco-baum cmplx NotReported Not Detected (NotDetected); Bact fragilis Not Reported Not Detected (NotDetected); Blood Culture Id Panel See PCR Comment (NotDetected); C auris Not Reported Not Detected (NotDetected); Calbicans Not Reported Not Detected (NotDetected); Candida glabrata Not Reported Not Detected (NotDetected); Candida krusei Not Reported Not Detected (NotDetected); Cneoformans/gatti Not Reported Not Detected (NotDetected); Cparapsilosis Not Reported Not Detected (NotDetected); E cloacae compx Not Reported Not Detected (NotDetected); Efaecalis Not Reported Not Detected (NotDetected); Efaecium Not Reported Not Detected (NotDetected); Enterobacterales Not Reported Not Detected (NotDetected); Escherichia coli Not Reported Not Detected (NotDetected); H influenzae Not Reported Not Detected (NotDetected); K aerogenes Not Reported Not Detected (NotDetected); Koxytoca Not Reported Not Detected (NotDetected); Kpneumoniae grp Not Reported Not Detected (NotDetected); Lmonocyt Not Reported Not Detected (NotDetected); N meningitidis Not Reported Not Detected (NotDetected); P aeruginosa Not Reported Not Detected (NotDetected); Proteus spp Not Reported Not Detected (NotDetected); Salmonella spp Not Reported Not Detected (NotDetected); Smarcescens Not Reported Not Detected (NotDetected); Staph lugdunensis Not Reported Not Detected (NotDetected); Staph spp. Not Reported DETECTED (NotDetected); Staphaureus Not Reported Not Detected (NotDetected); Staphepi Not Reported Not Detected (NotDetected); Stenmaltophilia Not Reported Not Detected (NotDetected); Strep agal(GrpB) Not Reported Not Detected (NotDetected); Strep pneum Not Reported Not Detected (NotDetected); Strep pyog (GrpA) Not Reported Not Detected (NotDetected); Strep spp Not Reported Not Detected (NotDetected)
[2024-03-05 23:06] LABS: Staphylococcus spp. DETECTED (NotDetected)
[2024-03-06] MEDS: LACTATED RINGER'S 1,000 ML IV ONE (00:21)
[2024-03-06 07:53] LABS: Hematocrit (blood only) 33.9 % (37.0-47.0); Hemoglobin 11.3 g/dl (12.0-16.0); Mean Corpuscular Hemoglobin 26.8 pg (25.0-34.0); Mean Corpuscular Hgb Conc 33.3 g/dL (32.0-36.0); Mean Corpuscular Volume 80.3 fL (80.0-100.0); Mean Platelet Volume 10.2 fL (9.4-12.4); Nucleated RBC # (auto) 0.03 K/uL (0.00-0.12); Nucleated RBC % (auto) 0.4 %; Platelet Count 130 K/uL (130-400); RDW Standard Deviation 52.2 fL (36.4-46.3); Red Blood Count 4.22 M/uL (4.20-5.40); White Blood Count 7.15 K/ul (4.8-10.8)
[2024-03-06 08:00] LABS: Creatinine Clr Calc Pharmacy 125.2 ml/min; Est GFR (African American) 118.8 ml/min; Est GFR (Non-African American) 102.5 ml/min; Phosphorus 2.3 mg/dl (2.5-4.9); Potassium 3.7 mmol/L (3.5-5.1)
[2024-03-06] MEDS: CEFDINIR 300 MG CAP PO SCH (10:31)
--- NOTE | 2024-03-06 10:55 | Hospitalist Progress Note ---
Date of Service March 06, 2024 Assessment & Plan (1) Sepsis: Plan: Severe sepsis SIRS plus lactic acidosis plus encephalopathy Metabolic encephalopathy Secondary to complicated UTI, history of overactive bladder Urine culture growing Klebsiella Was on Aztreonam Klebsiella is pansensitive. 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 made aware CT abd/P on admission reported cohen balloon in vagina. Per RN note on 03/05/24 4:24AM -cohen was noted to be in wrong place, cohen exchanged and in bladder I spent a total of 50 minutes coordinating, documenting and providing care for this patient excluding time spent in performance of separately billed services Admission and Anticipated Discharge Date Admission Date: March 05, 2024 Subjective Patient seen and examined. Patient is alert and oriented to person, place and year. Reports generalized weakness. at bedside. He reports home mental status is back to baseline but is eager to discuss with palliative care team Physical Exam Constitutional: + well hydrated; no acute distress Eyes: PERRL, conjunctivae normal, anicteric sclerae ENMT: external ear and nose normal, oropharynx normal Respiratory: normal respiratory effort, lungs clear to auscultation Cardiovascular: Rate/Rhythm: regular rate and regular rhythm Gastrointestinal (Abdomen): normal bowel sounds, soft, nontender, no hepatosplenomegaly Neurologic: PERRL, EOMI, Weak. Follows simple commands Poor insight Results & Data Results & Data Vital Signs (Past 12 Hours) Vital Signs Temp Pulse Pulse Resp BP BP Pulse Ox 03/06/24 10:44 03/06/24 08:00 70 03/06/24 07:35 36.6 C 72 17 134/75 92 03/06/24 04:00 36.9 C 71 18 111/66 95 03/06/24 01:00 78 03/05/24 23:57 37.0 C 78 18 104/66 94 O2 Del Method 03/06/24 10:44 Room Air 03/06/24 08:00 03/06/24 07:35 Room Air 03/06/24 04:00 Room Air 03/06/24 01:00 03/05/24 23:57 Room Air Laboratory Results Abnormal lab results 03/04/24 03/05/24 03/05/24 Range/Units 23:13 18:10 21:35 Hgb (12.0-16.0) g/dl Hct (37.0-47.0) % RDW Std Deviation (36.4-46.3) fL RDW Coeff of [place] (11.5-14.5) % Chloride (98-107) mmol/L BUN (6-23) mg/dl Creatinine (0.6-1.2) mg/dl BUN/Creatinine Ratio (10-20) POC Glucose 106 H 117 H (70-99) mg/dl Calcium (8.6-10.3) mg/dl Phosphorus (2.5-4.9) mg/dl Staphylococcus sp PCR DETECTED A (NotDetected) 03/06/24 03/06/24 Range/Units 06:59 12:04 Hgb 11.3 L (12.0-16.0) g/dl Hct 33.9 L (37.0-47.0) % RDW Std Deviation 52.2 H (36.4-46.3) fL RDW Coeff of [place] 18.0 H (11.5-14.5) % Chloride 110 H (98-107) mmol/L BUN 32 H (6-23) mg/dl Creatinine 0.41 L (0.6-1.2) mg/dl BUN/Creatinine Ratio 78.0 H (10-20) POC Glucose 101 H (70-99) mg/dl Calcium 8.0 L (8.6-10.3) mg/dl Phosphorus 2.3 L (2.5-4.9) mg/dl Staphylococcus sp PCR (NotDetected)
--- NOTE | 2024-03-06 13:15 | Palliative Care Consultation ---
Date of Consultation March 06, 2024 Assessment & Plan (1) Generalized pain: She as been using oxy IR 5mg BID PRN but it sedates and clouds cognition per family Patient unable to describe pain other than to say it is "all over" and seems worse in BLE and back Will try a schedule of tylenol 650mg PO BID, keep prn oxy - try dose at bedtime to perhaps improve comfort of sleep/make awake feeling more comfortable. (2) Weakness generalized: (3) PSP (progressive supranuclear palsy): (4) Confusion: (5) Discussion about advance care planning held with family member: Met with pt, Jim adn her dtr Compa at bedside for a 30min Face to face ACP Issues and events to date reviewed Dtr shares that the hospitalist [place] [facility] Dr Fitzpatrick, spent a lot fo time with them as a family discussing the issues, PSP and progression as well as the tough decisions ahead and encouraged a focus on QOL and comfort given that her PSP is overlying an aggressive and incurable dementia. compa states she is still trying to 'wrap her head around all of this information' and both she and jim have been trying to have some conversations about what next steps might be, adding "we know there are tough decisions ahead but we'll make them when we get to those points" we discussed the value and importance of earlier discussions and planning for serious illness progression vannesa bc decisions made in crisis may not align with what is most desired for pt and could impact or hinder chances of providing the end of life care she desires. we agreed to have these talks in an ongoing manner and will f/u in OP clinic as well. (6) Palliative care by specialist: (7) Garbled speech: (8) Encephalopathy: Plan as above Thank you for allowing us to participate in the ongoing care of this patient. Please page with any additional concerns. Liu Zhang DNP Director, Palliative Medicine History of Present Illness Reason for Consultation: GOC, family request, symptom mgt Attending Physician: Yaneth Rogers MD History of Present Illness Crisleda is known to me from prior admission for AMS, UTI, progressive weakness of unclear etiology She was transferred to [facility] from there to [facility] She has been at [facility] for a few weeks and developed recurrent UTI sx leading to this current admission per dtr and at bedside, this is her best day in some time. 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 Clinical correlation of this differential diagnosis is suggested. Given physical exam findings on vertical gaze limitation , increased cogwheel rigidity/tone in bilateral upper extremity, rapid decline in mental status, with global atrophy of brain specifically in cerebellum and midbrain - indicative of a neurodegenerative process/ disease - most commonly dementia. She was evaluated for reversible causes of delirium including - thyroid, iron deficiency,b12 negative xray for fracture of left foot and ankle, and echocardiogram without evidence of wall motion abnormlities. She was noted to have waxing and waning symptoms of interaction - would have staring or monosybillic episodes - infectious evaluation and acute stroke evaluation were repeated with negative results. She was evaluated by Physical and occupational therpy - due to poor core musculature she was unable to stand and had issues with balance when sitting on the edge of the bed. Echo: 02/01/2024: The qualitative LV ejection fraction is 55-59% (normal). The LV wall thickness is moderately increased (concentric). No LV segmental wall motion abnormalities. The left ventricular diastolic function is mildly abnormal (grade I). The proximal ascending thoracic aorta is mildly enlarged Neurology [facility]: Personal review of MRI Brain w/wo contrast 01/23/24 images available on [employer] [facility] - shows global moderate atrophy however more so of the cerebellum and midbrain (possible Humming bird sign). No ischemia or hemorrhage noted. IMPRESSION: Criselda Patrick is a 71-year-old woman with PMHx of non-epileptic myoclonic jerks, RLS and documented cognitive impairment with progressive decline who presented to OSH with AMS including confusion and staring spells in setting of UTI. Transferred here due to concern for seizures and further assessment with LTM EEG. Physical exam today pertinent for disorientation, vertical gaze limitation, slow movements, increased tone in b.l UE. Personal review of imaging at OSH shows moderate global atrophy of the brain however more so of the cerebellum and midbrain (possible Humming bird sign). Unlikely patient is having seizures however not unreasonable to r/o with EEG. More likely patient's is encephalopathic due to her UTI is setting of her progressive dementia with exacerbation of the cognitive deficits and possible delirium. Recommend treating the UTI with Abx. Further history from the family can be obtained in the day time to assess for severity off on going cognitive decline however dementia is typically not appropriate to diagnose in acute setting and always requires an in depth analysis in an outpatient setting once the acute phase has passed. Given her vertical gaze limitation, prior falls, cognitive decline and slow movements on exam PSP would be one type of neurodegenerative process on the differential along side with Alzheimer's Dementia. RECOMMENDATIONS / PLAN: Acute EncephalopathyUTIHx of cognitive decline Possible delirium- Okay with LTM EEG to r/o seizures however after LTM of 72 hours without any seizures the chances of capturing a seizures drops to 5-10% - Treat UTI- Seizure precautions- Treat any seizures lasting > 5 mins with Ativan 4 mg IV - Frequent reorientation- Sleep protocol- Avoid restraints other than lap belts. Redirection by family,friends, or medical staff is more effective and promotes recovery.- Allow patient to wear glasses and hearing aides- Allow 24 hour visitation from family/friends- Allow family, friends to redirect patient to avoid need for meds or restraints- Treat pain if any- Stat CT Head for change in neuro exam- Will consider LP if develops fever or progressive mental decline- Please reach out with questions or concerns to Neurology oncall via TTPatient was seen and staffed with Dr Yayo MD the attending neurologist at the time of patient encounter on 4Aesteban Sarabia MDNeurology PGY-2 [id number] type of neurodegenerative process on the differential along side with Alzheimer's Dementia. IMPRESSION: Patient is a 74yo F with PMHx of DLD, T2DM, obesity, CAD, DVT on Eliquis that neuro was consulted as stroke alert for AMS. Per nursing and , patient has been in current state all day. CTH negative for acute stroke or hemorrhage. Out of the window for TNK, no indication fir mechanical thrombectomy. From stroke perspective patient is already on Eliquis for DVT and ASA 81mg for history of CAD in addition to Lipitor 40mg. One thing that needs to be clarified is why she is on aspirin BID dosing, not indicated from stroke prevention perspective unless she is on that dose for something else. Her exam today was non-localizing. Given her age, extent of cerebral atrophy, underlying cognitive dysfunction, and long hospitalization with report of hallucinations from , it is evident that she is experiencing hypoactive delirium. Recommend management as shown below.Thank you for the opportunity to care for this patient. We have no further recommendations and will sign off at this time. Please do not hesitate to contact the Neurology Vascular Service with any questions.RECOMMENDATIONS / PLAN: Encephalopathy- Sleep protocol- Check BMP, UA, r/o infectious/metabolic causes- No indication for further RESEARCH CHIEF ENGINEER imaging- Not sure why she is on Aspirin 8mg BID? 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 Yuen) Standard Delirium Care- Avoid restraints other than lap belts. Redirection by family, friends, or medical staff is more effective and promotes recovery.- Allow patient to wear glasses and hearing aides- Allow 24 hour visitation from family/friends- Allow family, friends to redirect patient to avoid need for meds or restraints- Avoids benzos- Use atypical neuroleptics in a low scheduled dose in combination with PRN for agitation. If necessary, a scheduled dose of neuroleptic should be given at least 2 hours prior to typical onset of sundowning- Please note: the atypical Neuroleptics are associated with a slight but real increased in MACE (major adverse CV events) and should be used sparingly especially in the termite control service representative- Code Status should be clearly defined- Redirection by family, friends, one-to-one, or medical staff if far more effective and safer than medication use.- During the day, patient should be awake. Lights should be on. TV should be on. Patient should be placed in chair with restraints if possible and allowed into serrano or outside in wheelchair if can tolerate.- At night, lights should be turned low and all excess stimulation should be eliminated. - Room noises can cause anxiety producing hallucinations. If the room is loud, has atypical noises (construction, beeping, loud neighbor, etc), or patient is having negative reaction to ambient stimuli, patient should be moved to another room- Nutritional status should be addressed. Any nutritional deficits should be aggressively remediated.- High carbohydrate meals should be served- Please make family aware that delirium may last for weeks to months. - Patients with baseline organic brain syndromes are more prone to delirium and take longer to recover- Patient with baseline organic brain syndromes, especially neurodegenerative ones like Dementia of Alzheimer's type, may never recover back to pre-morbid baseline.Stroke Checklist:DVT Prophylaxis: please order chemical and mechanical, or document contraindicationAntithrombotic Therapy: receiving antiplatelet or anticoagulationAtrial Fibrillation or Flutter: noStatin: receiving - high intensityStroke Education:personal risk factors for strokeRehab Therapy Plan: O.T., P.T., and SpeechAdditional Stroke Care (or Document Contraindication) as Follows: N/ADysphagia Screen prior to any oral intake: not done - bedside nurse to administer dysphagia screenPatient Has Decision Making Capacity: no, reason: aphasic/delirious Code Status: Full Code The patient was examined and was discussed with Dr. Blanco. [id number] Allergies Allergy/AdvReac Type Severity Reaction Status Date / Time dog dander Allergy Unknown Sneezing, Verified 07/28/23 06:51 itchy eyes/throat grass pollen-perennial rye, Allergy Unknown Sneezing, Verified 07/28/23 06:51 standar itchy eyes/throat Home Medications Medication Instructions Recorded Confirmed Type Lactobacillus acidophilus 1 cap PO BID 11/03/20 03/05/24 History acetaminophen 325 mg tablet 650 mg PO Q6 PRN Fever 11/03/20 03/05/24 History albuterol sulfate 90 mcg/actuation 2 puff inhalation Q4H PRN 11/03/20 03/05/24 History aerosol inhaler Shortness Of Breath atorvastatin 40 mg tablet 40 mg PO HS 11/03/20 03/05/24 History fluticasone fur. 100 mcg-umeclid 1 inh inhalation QAM 11/03/20 03/05/24 History 62.5 mcg-vilant 25 mcg inhalat.powder (Trelegy Ellipta) fluticasone propionate 50 1 spray intranasal QAM 11/03/20 03/05/24 History mcg/actuation nasal spray,suspension multivitamin 1 tab PO QAM 11/03/20 03/05/24 History omeprazole 20 mg capsule,delayed 20 mg PO AMHS 11/03/20 03/05/24 History release albuterol sulfate 2.5 mg/3 mL 2.5 mg inhalation Q4 PRN Shortness 02/25/23 03/05/24 History (0.083 %) solution for nebulization Of Breath Or Wheezing cholecalciferol (vitamin D3) 25 25 mcg PO QAM 02/25/23 03/05/24 History mcg (1,000 unit) capsule (Vitamin D3) cyanocobalamin (vitamin B-12) 100 100 mcg PO QAM 02/25/23 03/05/24 History mcg tablet (Vitamin B-12) divalproex 500 mg tablet,delayed 500 mg PO BID 02/25/23 03/05/24 History release latanoprost 0.005 % eye drops 1 drp OPB HS 02/25/23 03/05/24 History ropinirole 1 mg tablet 1 mg PO HS 02/25/23 03/05/24 History gabapentin 300 mg capsule 300 mg PO BID 03/28/23 03/05/24 History apixaban 5 mg tablet (Eliquis) 5 mg PO BID 01/23/24 03/05/24 History furosemide 40 mg tablet 40 mg PO DAILY 01/23/24 03/05/24 History insulin glargine 100 unit/mL 8 unit subcut HS 01/23/24 03/05/24 History subcutaneous solution melatonin 5 mg tablet 5 mg PO HS PRN Insomnia 01/23/24 03/05/24 History oxycodone 5 mg tablet 5 mg PO Q6H PRN moderate to severe 01/23/24 03/05/24 History pain potassium chloride 20 mEq 40 meq PO DAILY 01/23/24 03/05/24 History tablet,extended release acetaminophen 500 mg tablet 1,000 mg PO Q8 03/05/24 03/05/24 History (Tylenol Extra Strength) aspirin 81 mg tablet,delayed 81 mg PO QAM 03/05/24 03/05/24 History release ceftriaxone 1 gram solution for 1 g IM DAILY 03/05/24 03/05/24 History injection loratadine 10 mg tablet 10 mg PO DAILY 03/05/24 03/05/24 History metformin 1,000 mg tablet 1,000 mg PO BID 03/05/24 03/05/24 History miconazole nitrate 2 % topical 1 applic topical BID 03/05/24 03/05/24 History powder Patient History Medical History Cognitive deficit due to and not concurrent with cerebrovascular disease Urinary incontinence Chronic Overactive bladder Glaucoma Claustrophobia Osteoarthritis of knees, bilateral BPPV (benign paroxysmal positional vertigo) History of sepsis History of melanoma back History of right breast cancer Dx 1997- chemo/radiation/surgery Surgical History Status post left knee replacement (~07/2023) Family history of reaction to anesthesia Daughter PONV History of right breast biopsy malignant History of cholecystectomy History of appendectomy History of colonoscopy History of Mohs micrographic surgery for skin cancer History of lumpectomy of right breast History of tooth extraction History of bilateral cataract extraction History of cardiac cath ~2017 ([facility])- no stents Family History Brother Family hx of colon cancer Father Family hx of colon cancer Sister Family history of diabetes mellitus Daughter Family history of reaction to anesthesia nausea/vomiting/migraine Mother Family history of diabetes mellitus Brother Family history of diabetes mellitus Family hx colonic polyps Social History Smoking Status: Never smoker Second Hand Exposure: No; Do You Dip or Chew Tobacco: No; Tobacco Cessation Education Requested by Patient: No Hx Alcohol Use: No Hx Substance Use: No Preferred Language: Turkmen Communication Ability: Impaired Communication Ability Comment: Confused Soil Fertility Specialist Required: No Beliefs That Will Affect Care: Buddhist Buddhist Beliefs: Pentecostal Current Living Situation: Prison Current Living Situation Comment: lives at home with Other Information That Helps Us Care for You: No Feels Safe at Home: Yes Assistive Devices: Brace/Splint/Immobilizer and Denture - Upper Review of Systems Review of Systems: All systems reviewed & are unremarkable except as noted in Subjective and Unobtainable due to cognitive status Physical Exam Physical Exam: slightly disheveled, bitemp wasting, alert to self, perrla. dentition fair MMM. eye contact fair. easily distracted. word location/aphasic episodes. resp effort WAL at rest, no distress. no wheezing. no JVD. Abd benign. BLE and BUE weakness. Skin pale. Results & Data Vital Signs (Past 12 Hours) Vital Signs Temp Pulse Pulse Resp BP BP Pulse Ox 03/06/24 11:39 36.7 C 72 17 102/62 94 03/06/24 10:44 03/06/24 08:00 70 03/06/24 07:35 36.6 C 72 17 134/75 92 03/06/24 04:00 36.9 C 71 18 111/66 95 O2 Del Method 03/06/24 11:39 Room Air 03/06/24 10:44 Room Air 03/06/24 08:00 03/06/24 07:35 Room Air 03/06/24 04:00 Room Air Laboratory Results 03/06/24 03/06/24 03/06/24 Range/Units 12:04 08:07 06:59 WBC 7.15 (4.8-10.8) K/ul RBC 4.22 (4.20-5.40) M/uL Hgb 11.3 L (12.0-16.0) g/dl POC Hgb (12.0-16.0) g/dl Hct 33.9 L (37.0-47.0) % POC Hct (37-47) % MCV 80.3 (80.0-100.0) fL MCH 26.8 (25.0-34.0) pg MCHC 33.3 (32.0-36.0) g/dL RDW Std Deviation 52.2 H (36.4-46.3) fL RDW Coeff of [place] 18.0 H (11.5-14.5) % Plt Count 130 (130-400) K/uL MPV 10.2 (9.4-12.4) fL Immature Gran % (Auto) % Neut % (Auto) % Lymph % (Auto) % [place] % (Auto) % Eos % (Auto) % Baso % (Auto) % Neut # (Auto) (1.40-6.50) K/uL Lymph # (Auto) (1.20-3.40) K/uL [place] # (Auto) (0.11-0.59) K/uL Eos # (Auto) (0.00-0.50) K/uL Baso # (Auto) (0.00-0.20) K/uL Immature Gran # (Auto) (0.01-0.20) K/uL Absolute Nucleated RBC 0.03 (0.00-0.12) K/uL Nucleated RBC % (auto) 0.4 % Anisocytosis VBG pH (7.36-7.41) VBG pCO2 (38-50) mmHg VBG pO2 mmHg VBG HCO3 mmol/L VBG O2 Saturation % VBG Base Excess mEq/L POC Sodium (135-144) mmol/L Sodium 140 (136-145) mmol/L POC Potassium (3.3-5.0) mmol/L Potassium 3.7 (3.5-5.1) mmol/L POC Chloride (101-112) mmol/L Chloride 110 H (98-107) mmol/L Carbon Dioxide 25 (21-32) mmol/L POC Total CO2 (24-31) mmol/L Anion Gap 5 (3-11) POC Anion Gap (16-25) mmol/L POC BUN (7-18) mg/dl BUN 32 H (6-23) mg/dl Creatinine 0.41 L (0.6-1.2) mg/dl POC Creatinine (0.6-1.3) mg/dl Est Cr Clr Drug Dosing 125.2 ml/min Est GFR ( Amer) 118.8 ml/min Est GFR (Non-Af Amer) 102.5 ml/min BUN/Creatinine Ratio 78.0 H (10-20) Glucose 91 (70-99(Fasting)) mg/dl POC Glucose 101 H 93 (70-99) mg/dl POC Glucose (other) (70-99) mg/dl Lactate (0.4-2.0) mmol/L Calcium 8.0 L (8.6-10.3) mg/dl POC Ioniz Calcium Cheryl (1.12-1.32) mmol/l Phosphorus 2.3 L (2.5-4.9) mg/dl Magnesium 2.0 (1.7-2.4) mg/dl Total Bilirubin (0.2-1.0) mg/dl Direct Bilirubin (0-0.2) mg/dl AST (13-39) U/L ALT (7-52) U/L Alkaline Phosphatase (34-104) U/L Ammonia (18-72) umol/L Troponin I High Sens (0-14) pg/ml Total Protein (6.0-8.3) gm/dl Albumin (3.4-5.0) gm/dl Procalcitonin (0-0.5) ng/ml Urine Color Urine Appearance (Clear) Urine pH (4.5-7.5) Ur Specific [place] (1.000-1.030) Urine Protein (Negative) Urine Glucose (UA) (Negative) Urine Ketones (Negative) Urine Blood (Negative) Urine Nitrite (Negative) Urine Bilirubin (Negative) Urine Urobilinogen (Negative) Ur Leukocyte Esterase (Negative) Urine WBC (Auto) (0-5) /hpf Urine RBC (Auto) (0-2) /hpf U Hyaline Cast (Auto) (0-2) /lpf U Epithel Cells (Auto) (0-2) /hpf Urine Bacteria (Auto) (None Seen) Urine Mucus (None Prsent) Valproic Acid (50-100) mcg/ml Adenovirus (PCR) (NotDetected) B. pertussis DNA (PCR) (NotDetected) B.parapertussis DNA PCR (NotDetected) C. pneumoniae DNA (PCR) (NotDetected) Coronavirus OC43 (PCR) (NotDetected) Coronavirus HKU1 (PCR) (NotDetected) Coronavirus 229E (PCR) (NotDetected) SARS-CoV-2 (PCR) (NotDetected) Coronavirus NL63 (PCR) (NotDetected) Human Metapneumovir PCR (NotDetected) Influenza Type A (PCR) (NotDetected) Influenza Type B (PCR) (NotDetected) M. pneumoniae (PCR) (NotDetected) Parainfluenza 1 (PCR) (NotDetected) Parainfluenza 2 (PCR) (NotDetected) Parainfluenza 3 (PCR) (NotDetected) Parainfluenza 4 (PCR) (NotDetected) RSV (PCR) (NotDetected) Entero/Rhino (PCR) (NotDetected) Staphylococcus sp PCR (NotDetected) Bld Cult ID Panel PCR (NotDetected) 03/05/24 03/05/24 03/05/24 Range/Units 21:35 18:10 11:23 WBC (4.8-10.8) K/ul RBC (4.20-5.40) M/uL Hgb (12.0-16.0) g/dl POC Hgb (12.0-16.0) g/dl Hct (37.0-47.0) % POC Hct (37-47) % MCV (80.0-100.0) fL MCH (25.0-34.0) pg MCHC (32.0-36.0) g/dL RDW Std Deviation (36.4-46.3) fL RDW Coeff of [place] (11.5-14.5) % Plt Count (130-400) K/uL MPV (9.4-12.4) fL Immature Gran % (Auto) % Neut % (Auto) % Lymph % (Auto) % [place] % (Auto) % Eos % (Auto) % Baso % (Auto) % Neut # (Auto) (1.40-6.50) K/uL Lymph # (Auto) (1.20-3.40) K/uL [place] # (Auto) (0.11-0.59) K/uL Eos # (Auto) (0.00-0.50) K/uL Baso # (Auto) (0.00-0.20) K/uL Immature Gran # (Auto) (0.01-0.20) K/uL Absolute Nucleated RBC (0.00-0.12) K/uL Nucleated RBC % (auto) % Anisocytosis VBG pH (7.36-7.41) VBG pCO2 (38-50) mmHg VBG pO2 mmHg VBG HCO3 mmol/L VBG O2 Saturation % VBG Base Excess mEq/L POC Sodium (135-144) mmol/L Sodium (136-145) mmol/L POC Potassium (3.3-5.0) mmol/L Potassium (3.5-5.1) mmol/L POC Chloride (101-112) mmol/L Chloride (98-107) mmol/L Carbon Dioxide (21-32) mmol/L POC Total CO2 (24-31) mmol/L Anion Gap (3-11) POC Anion Gap (16-25) mmol/L POC BUN (7-18) mg/dl BUN (6-23) mg/dl Creatinine (0.6-1.2) mg/dl POC Creatinine (0.6-1.3) mg/dl Est Cr Clr Drug Dosing ml/min Est GFR ( Amer) ml/min Est GFR (Non-Af Amer) ml/min BUN/Creatinine Ratio (10-20) Glucose (70-99(Fasting)) mg/dl POC Glucose 117 H 106 H 204 H (70-99) mg/dl POC Glucose (other) (70-99) mg/dl Lactate (0.4-2.0) mmol/L Calcium (8.6-10.3) mg/dl POC Ioniz Calcium Cheryl (1.12-1.32) mmol/l Phosphorus (2.5-4.9) mg/dl Magnesium (1.7-2.4) mg/dl Total Bilirubin (0.2-1.0) mg/dl Direct Bilirubin (0-0.2) mg/dl AST (13-39) U/L ALT (7-52) U/L Alkaline Phosphatase (34-104) U/L Ammonia (18-72) umol/L Troponin I High Sens (0-14) pg/ml Total Protein (6.0-8.3) gm/dl Albumin (3.4-5.0) gm/dl Procalcitonin (0-0.5) ng/ml Urine Color Urine Appearance (Clear) Urine pH (4.5-7.5) Ur Specific [place] (1.000-1.030) Urine Protein (Negative) Urine Glucose (UA) (Negative) Urine Ketones (Negative) Urine Blood (Negative) Urine Nitrite (Negative) Urine Bilirubin (Negative) Urine Urobilinogen (Negative) Ur Leukocyte Esterase (Negative) Urine WBC (Auto) (0-5) /hpf Urine RBC (Auto) (0-2) /hpf U Hyaline Cast (Auto) (0-2) /lpf U Epithel Cells (Auto) (0-2) /hpf Urine Bacteria (Auto) (None Seen) Urine Mucus (None Prsent) Valproic Acid (50-100) mcg/ml Adenovirus (PCR) (NotDetected) B. pertussis DNA (PCR) (NotDetected) B.parapertussis DNA PCR (NotDetected) C. pneumoniae DNA (PCR) (NotDetected) Coronavirus OC43 (PCR) (NotDetected) Coronavirus HKU1 (PCR) (NotDetected) Coronavirus 229E (PCR) (NotDetected) SARS-CoV-2 (PCR) (NotDetected) Coronavirus NL63 (PCR) (NotDetected) Human Metapneumovir PCR (NotDetected) Influenza Type A (PCR) (NotDetected) Influenza Type B (PCR) (NotDetected) M. pneumoniae (PCR) (NotDetected) Parainfluenza 1 (PCR) (NotDetected) Parainfluenza 2 (PCR) (NotDetected) Parainfluenza 3 (PCR) (NotDetected) Parainfluenza 4 (PCR) (NotDetected) RSV (PCR) (NotDetected) Entero/Rhino (PCR) (NotDetected) Staphylococcus sp PCR (NotDetected) Bld Cult ID Panel PCR (NotDetected) 03/05/24 03/05/24 03/05/24 Range/Units 07:38 06:29 06:28 WBC 12.72 H (4.8-10.8) K/ul RBC 5.14 (4.20-5.40) M/uL Hgb 13.5 (12.0-16.0) g/dl POC Hgb (12.0-16.0) g/dl Hct 42.1 (37.0-47.0) % POC Hct (37-47) % MCV 81.9 (80.0-100.0) fL MCH 26.3 (25.0-34.0) pg MCHC 32.1 (32.0-36.0) g/dL RDW Std Deviation 56.1 H (36.4-46.3) fL RDW Coeff of [place] 19.4 H (11.5-14.5) % Plt Count 157 (130-400) K/uL MPV 10.3 (9.4-12.4) fL Immature Gran % (Auto) 0.7 % Neut % (Auto) 64.6 % Lymph % (Auto) 24.4 % [place] % (Auto) 9.5 % Eos % (Auto) 0.1 % Baso % (Auto) 0.7 % Neut # (Auto) 8.21 H (1.40-6.50) K/uL Lymph # (Auto) 3.11 (1.20-3.40) K/uL [place] # (Auto) 1.21 H (0.11-0.59) K/uL Eos # (Auto) 0.01 (0.00-0.50) K/uL Baso # (Auto) 0.09 (0.00-0.20) K/uL Immature Gran # (Auto) 0.09 (0.01-0.20) K/uL Absolute Nucleated RBC 0.04 (0.00-0.12) K/uL Nucleated RBC % (auto) 0.3 % Anisocytosis VBG pH 7.36 (7.36-7.41) VBG pCO2 41 (38-50) mmHg VBG pO2 44 mmHg VBG HCO3 23 mmol/L VBG O2 Saturation 68.3 % VBG Base Excess -2.2 mEq/L POC Sodium (135-144) mmol/L Sodium 144 (136-145) mmol/L POC Potassium (3.3-5.0) mmol/L Potassium 4.2 (3.5-5.1) mmol/L POC Chloride (101-112) mmol/L Chloride 114 H (98-107) mmol/L Carbon Dioxide 23 (21-32) mmol/L POC Total CO2 (24-31) mmol/L Anion Gap 7 (3-11) POC Anion Gap (16-25) mmol/L POC BUN (7-18) mg/dl BUN 34 H (6-23) mg/dl Creatinine 0.62 (0.6-1.2) mg/dl POC Creatinine (0.6-1.3) mg/dl Est Cr Clr Drug Dosing 83.3 ml/min Est GFR ( Amer) 103.7 ml/min Est GFR (Non-Af Amer) 89.5 ml/min BUN/Creatinine Ratio 54.8 H (10-20) Glucose 129 H (70-99(Fasting)) mg/dl POC Glucose 119 H (70-99) mg/dl POC Glucose (other) (70-99) mg/dl Lactate 2.1 H* (0.4-2.0) mmol/L Calcium 8.0 L (8.6-10.3) mg/dl POC Ioniz Calcium Cheryl (1.12-1.32) mmol/l Phosphorus (2.5-4.9) mg/dl Magnesium (1.7-2.4) mg/dl Total Bilirubin (0.2-1.0) mg/dl Direct Bilirubin (0-0.2) mg/dl AST (13-39) U/L ALT (7-52) U/L Alkaline Phosphatase (34-104) U/L Ammonia (18-72) umol/L Troponin I High Sens (0-14) pg/ml Total Protein (6.0-8.3) gm/dl Albumin (3.4-5.0) gm/dl Procalcitonin (0-0.5) ng/ml Urine Color Dark Yellow Urine Appearance Cloudy A (Clear) Urine pH 5.5 (4.5-7.5) Ur Specific [place] 1.040 H (1.000-1.030) Urine Protein 1+ H (Negative) Urine Glucose (UA) Negative (Negative) Urine Ketones 1+ H (Negative) Urine Blood Negative (Negative) Urine Nitrite Negative (Negative) Urine Bilirubin Negative (Negative) Urine Urobilinogen Negative (Negative) Ur Leukocyte Esterase Negative (Negative) Urine WBC (Auto) 6-10 H (0-5) /hpf Urine RBC (Auto) 3-5 H (0-2) /hpf U Hyaline Cast (Auto) 3-5 H (0-2) /lpf U Epithel Cells (Auto) 6-10 H (0-2) /hpf Urine Bacteria (Auto) None Seen (None Seen) Urine Mucus (None Prsent) Valproic Acid (50-100) mcg/ml Adenovirus (PCR) (NotDetected) B. pertussis DNA (PCR) (NotDetected) B.parapertussis DNA PCR (NotDetected) C. pneumoniae DNA (PCR) (NotDetected) Coronavirus OC43 (PCR) (NotDetected) Coronavirus HKU1 (PCR) (NotDetected) Coronavirus 229E (PCR) (NotDetected) SARS-CoV-2 (PCR) (NotDetected) Coronavirus NL63 (PCR) (NotDetected) Human Metapneumovir PCR (NotDetected) Influenza Type A (PCR) (NotDetected) Influenza Type B (PCR) (NotDetected) M. pneumoniae (PCR) (NotDetected) Parainfluenza 1 (PCR) (NotDetected) Parainfluenza 2 (PCR) (NotDetected) Parainfluenza 3 (PCR) (NotDetected) Parainfluenza 4 (PCR) (NotDetected) RSV (PCR) (NotDetected) Entero/Rhino (PCR) (NotDetected) Staphylococcus sp PCR (NotDetected) Bld Cult ID Panel PCR (NotDetected) 03/05/24 03/05/24 03/04/24 Range/Units 05:52 02:21 23:44 WBC (4.8-10.8) K/ul RBC (4.20-5.40) M/uL Hgb (12.0-16.0) g/dl POC Hgb (12.0-16.0) g/dl Hct (37.0-47.0) % POC Hct (37-47) % MCV (80.0-100.0) fL MCH (25.0-34.0) pg MCHC (32.0-36.0) g/dL RDW Std Deviation (36.4-46.3) fL RDW Coeff of [place] (11.5-14.5) % Plt Count (130-400) K/uL MPV (9.4-12.4) fL Immature Gran % (Auto) % Neut % (Auto) % Lymph % (Auto) % [place] % (Auto) % Eos % (Auto) % Baso % (Auto) % Neut # (Auto) (1.40-6.50) K/uL Lymph # (Auto) (1.20-3.40) K/uL [place] # (Auto) (0.11-0.59) K/uL Eos # (Auto) (0.00-0.50) K/uL Baso # (Auto) (0.00-0.20) K/uL Immature Gran # (Auto) (0.01-0.20) K/uL Absolute Nucleated RBC (0.00-0.12) K/uL Nucleated RBC % (auto) % Anisocytosis VBG pH (7.36-7.41) VBG pCO2 (38-50) mmHg VBG pO2 mmHg VBG HCO3 mmol/L VBG O2 Saturation % VBG Base Excess mEq/L POC Sodium (135-144) mmol/L Sodium (136-145) mmol/L POC Potassium (3.3-5.0) mmol/L Potassium (3.5-5.1) mmol/L POC Chloride (101-112) mmol/L Chloride (98-107) mmol/L Carbon Dioxide (21-32) mmol/L POC Total CO2 (24-31) mmol/L Anion Gap (3-11) POC Anion Gap (16-25) mmol/L POC BUN (7-18) mg/dl BUN (6-23) mg/dl Creatinine (0.6-1.2) mg/dl POC Creatinine (0.6-1.3) mg/dl Est Cr Clr Drug Dosing ml/min Est GFR ( Amer) ml/min Est GFR (Non-Af Amer) ml/min BUN/Creatinine Ratio (10-20) Glucose (70-99(Fasting)) mg/dl POC Glucose 121 H (70-99) mg/dl POC Glucose (other) (70-99) mg/dl Lactate 3.3 H* (0.4-2.0) mmol/L Calcium (8.6-10.3) mg/dl POC Ioniz Calcium Cheryl (1.12-1.32) mmol/l Phosphorus (2.5-4.9) mg/dl Magnesium (1.7-2.4) mg/dl Total Bilirubin (0.2-1.0) mg/dl Direct Bilirubin (0-0.2) mg/dl AST (13-39) U/L ALT (7-52) U/L Alkaline Phosphatase (34-104) U/L Ammonia (18-72) umol/L Troponin I High Sens 40.0 H (0-14) pg/ml Total Protein (6.0-8.3) gm/dl Albumin (3.4-5.0) gm/dl Procalcitonin (0-0.5) ng/ml Urine Color Urine Appearance (Clear) Urine pH (4.5-7.5) Ur Specific [place] (1.000-1.030) Urine Protein (Negative) Urine Glucose (UA) (Negative) Urine Ketones (Negative) Urine Blood (Negative) Urine Nitrite (Negative) Urine Bilirubin (Negative) Urine Urobilinogen (Negative) Ur Leukocyte Esterase (Negative) Urine WBC (Auto) (0-5) /hpf Urine RBC (Auto) (0-2) /hpf U Hyaline Cast (Auto) (0-2) /lpf U Epithel Cells (Auto) (0-2) /hpf Urine Bacteria (Auto) (None Seen) Urine Mucus (None Prsent) Valproic Acid 21 L (50-100) mcg/ml Adenovirus (PCR) Not Detected (NotDetected) B. pertussis DNA (PCR) Not Detected (NotDetected) B.parapertussis DNA PCR Not Detected (NotDetected) C. pneumoniae DNA (PCR) Not Detected (NotDetected) Coronavirus OC43 (PCR) Not Detected (NotDetected) Coronavirus HKU1 (PCR) Not Detected (NotDetected) Coronavirus 229E (PCR) Not Detected (NotDetected) SARS-CoV-2 (PCR) Not Detected (NotDetected) Coronavirus NL63 (PCR) Not Detected (NotDetected) Human Metapneumovir PCR Not Detected (NotDetected) Influenza Type A (PCR) Not Detected (NotDetected) Influenza Type B (PCR) Not Detected (NotDetected) M. pneumoniae (PCR) Not Detected (NotDetected) Parainfluenza 1 (PCR) Not Detected (NotDetected) Parainfluenza 2 (PCR) Not Detected (NotDetected) Parainfluenza 3 (PCR) Not Detected (NotDetected) Parainfluenza 4 (PCR) Not Detected (NotDetected) RSV (PCR) Not Detected (NotDetected) Entero/Rhino (PCR) Not Detected (NotDetected) Staphylococcus sp PCR (NotDetected) Bld Cult ID Panel PCR (NotDetected) 03/04/24 03/04/24 Range/Units 23:21 23:13 WBC 11.00 H (4.8-10.8) K/ul RBC 6.07 H (4.20-5.40) M/uL Hgb 16.1 H (12.0-16.0) g/dl POC Hgb 16.3 H (12.0-16.0) g/dl Hct 48.6 H (37.0-47.0) % POC Hct 48 H (37-47) % MCV 80.1 (80.0-100.0) fL MCH 26.5 (25.0-34.0) pg MCHC 33.1 (32.0-36.0) g/dL RDW Std Deviation 55.2 H (36.4-46.3) fL RDW Coeff of [place] 20.1 H (11.5-14.5) % Plt Count 254 (130-400) K/uL MPV 10.1 (9.4-12.4) fL Immature Gran % (Auto) 0.6 % Neut % (Auto) 69.0 % Lymph % (Auto) 19.4 % [place] % (Auto) 10.5 % Eos % (Auto) 0.0 % Baso % (Auto) 0.5 % Neut # (Auto) 7.58 H (1.40-6.50) K/uL Lymph # (Auto) 2.13 (1.20-3.40) K/uL [place] # (Auto) 1.16 H (0.11-0.59) K/uL Eos # (Auto) 0.00 (0.00-0.50) K/uL Baso # (Auto) 0.06 (0.00-0.20) K/uL Immature Gran # (Auto) 0.07 (0.01-0.20) K/uL Absolute Nucleated RBC 0.05 (0.00-0.12) K/uL Nucleated RBC % (auto) 0.5 % Anisocytosis Present VBG pH (7.36-7.41) VBG pCO2 (38-50) mmHg VBG pO2 mmHg VBG HCO3 mmol/L VBG O2 Saturation % VBG Base Excess mEq/L POC Sodium 143 (135-144) mmol/L Sodium 142 (136-145) mmol/L POC Potassium 4.8 (3.3-5.0) mmol/L Potassium 4.7 (3.5-5.1) mmol/L POC Chloride 111 (101-112) mmol/L Chloride 108 H (98-107) mmol/L Carbon Dioxide 25 (21-32) mmol/L POC Total CO2 23 L (24-31) mmol/L Anion Gap 9 (3-11) POC Anion Gap 15.0 L (16-25) mmol/L POC BUN 33 H (7-18) mg/dl BUN 38 H (6-23) mg/dl Creatinine 0.87 (0.6-1.2) mg/dl POC Creatinine 0.8 (0.6-1.3) mg/dl Est Cr Clr Drug Dosing 61.9 ml/min Est GFR ( Amer) 76.6 ml/min Est GFR (Non-Af Amer) 66.1 ml/min BUN/Creatinine Ratio 43.7 H (10-20) Glucose 167 H (70-99(Fasting)) mg/dl POC Glucose (70-99) mg/dl POC Glucose (other) 172 H (70-99) mg/dl Lactate 2.2 H* (0.4-2.0) mmol/L Calcium 8.9 (8.6-10.3) mg/dl POC Ioniz Calcium Cheryl 1.18 (1.12-1.32) mmol/l Phosphorus (2.5-4.9) mg/dl Magnesium 2.2 (1.7-2.4) mg/dl Total Bilirubin 0.6 (0.2-1.0) mg/dl Direct Bilirubin 0.2 (0-0.2) mg/dl AST 48 H (13-39) U/L ALT 25 (7-52) U/L Alkaline Phosphatase 75 (34-104) U/L Ammonia 22.0 (18-72) umol/L Troponin I High Sens 39.0 H (0-14) pg/ml Total Protein 7.0 (6.0-8.3) gm/dl Albumin 3.6 (3.4-5.0) gm/dl Procalcitonin 0.13 (0-0.5) ng/ml Urine Color Dark Yellow Urine Appearance Turbid A (Clear) Urine pH 6.0 (4.5-7.5) Ur Specific [place] 1.030 (1.000-1.030) Urine Protein 2+ H (Negative) Urine Glucose (UA) Negative (Negative) Urine Ketones 1+ H (Negative) Urine Blood 1+ H (Negative) Urine Nitrite Positive A (Negative) Urine Bilirubin Negative (Negative) Urine Urobilinogen Negative (Negative) Ur Leukocyte Esterase 3+ H (Negative) Urine WBC (Auto) >50 H (0-5) /hpf Urine RBC (Auto) 3-5 H (0-2) /hpf U Hyaline Cast (Auto) >20 H (0-2) /lpf U Epithel Cells (Auto) >20 H (0-2) /hpf Urine Bacteria (Auto) 4+ H (None Seen) Urine Mucus Present A (None Prsent) Valproic Acid (50-100) mcg/ml Adenovirus (PCR) (NotDetected) B. pertussis DNA (PCR) (NotDetected) B.parapertussis DNA PCR (NotDetected) C. pneumoniae DNA (PCR) (NotDetected) Coronavirus OC43 (PCR) (NotDetected) Coronavirus HKU1 (PCR) (NotDetected) Coronavirus 229E (PCR) (NotDetected) SARS-CoV-2 (PCR) (NotDetected) Coronavirus NL63 (PCR) (NotDetected) Human Metapneumovir PCR (NotDetected) Influenza Type A (PCR) (NotDetected) Influenza Type B (PCR) (NotDetected) M. pneumoniae (PCR) (NotDetected) Parainfluenza 1 (PCR) (NotDetected) Parainfluenza 2 (PCR) (NotDetected) Parainfluenza 3 (PCR) (NotDetected) Parainfluenza 4 (PCR) (NotDetected) RSV (PCR) (NotDetected) Entero/Rhino (PCR) (NotDetected) Staphylococcus sp PCR DETECTED A (NotDetected) Bld Cult ID Panel PCR See PCR Comment (NotDetected) Diagnostic Findings [facility] Link: CT HEAD/BRAIN WO CONTRAST 02/05/2024 HISTORY: stroke alert TECHNIQUE: Axial CT imaging of the head was performed from the skull base to the vertex without intravenous contrast. Coronal and sagittal reformats were processed. COMPARISON: 02/11/2022 FINDINGS: Ventricular prominence is likely on account of advanced parenchymal volume loss. There is chronic small vessel ischemic gliosis of the supratentorial white matter without evidence of an acute infarct, hemorrhage, or mass lesion. No extra-axial fluid collection or midline shift. The basal cisterns are patent. No acute calvarial abnormality. There have been prior bilateral lens replacements. The visualized paranasal sinuses and mastoid air cells are clear. IMPRESSION IMPRESSION: 1. No acute intracranial abnormality. However, if there is significant clinical concern for acute ischemia, an MRI would be more sensitive. 2. Chronic findings, as above. PG Care Time/CCT Total # of Minutes Spent Total Time Spent with Patient: Total time spent is greater than 50% in coordination of care (as documented) at patient's floor/unit and/or counseling patient: I spent 95 minutes overall addressing this case: 25 min in medical data review/discussion with referring provider(s) and/or preparation for the visit including d/w other specialists and OSH data review via EMR Link 15 min in direct interaction with the patient/exam 30 min in Advance Care Planning/Goals of Care discussions as detailed above in note (must be >16min) 10 min in subsequent review and synthesis of assessment and plan 15 min communicating with other providers regarding the patient's case: primary team and nursing Advanced Care Planning 17546 Advanced Care Planning 30 [place] [address] IN/OBS CONSULT LVL 4,60M (25 - SIGNIFICANT, SEPARATELY IDENTIFIABLE ) Patient Type New Diagnoses Generalized pain R52 Weakness generalized R53.1 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
[2024-03-06] MEDS: POT PHOSPHATE MONOBASIC W/ SOD TAB PO ONE (16:45)
[2024-03-06] MEDS: ACETAMINOPHEN 500 MG TAB PO SCH (20:14)
[2024-03-06] MEDS ORDERED: ACETAMINOPHEN 325 MG TAB PO SCH (21:00)
--- NOTE | 2024-03-06 22:45 | Electrocardiogram Report ---
Test Reason : Blood Pressure : / mmHG Vent. Rate : 131 BPM Atrial Rate : 131 BPM P-R Int : 136 ms QRS Dur : 080 ms QT Int : 280 ms P-R-T Axes : 000 -10 056 degrees QTc Int : 414 ms Sinus tachycardia Nonspecific T wave abnormality When compared with ECG of 23-JAN-2024 15:39, Vent. rate has increased BY 57 BPM Confirmed by Kaleb De Jesus ([id number]) on 03/06/2024 10:45:03 PM Referred By: [facility] Confirmed By:Kaleb De Jesus
[2024-03-07 07:07] LABS: Hematocrit (blood only) 35.6 % (37.0-47.0); Hemoglobin 11.7 g/dl (12.0-16.0); Mean Corpuscular Hemoglobin 26.3 pg (25.0-34.0); Mean Corpuscular Hgb Conc 32.9 g/dL (32.0-36.0); Mean Platelet Volume 10.7 fL (9.4-12.4); Platelet Count 119 K/uL (130-400); RDW Coefficient of Variation 17.2 % (11.5-14.5); RDW Standard Deviation 50.3 fL (36.4-46.3); Red Blood Count 4.45 M/uL (4.20-5.40); White Blood Count 5.19 K/ul (4.8-10.8)
[2024-03-07 07:20] LABS: BUN Creatinine Ratio 55.9 (10-20); Calcium 7.8 mg/dl (8.6-10.3); Chol HDL Ratio 3.8 (0-5); Creatinine Clr Calc Pharmacy 152.1 ml/min; Est GFR (African American) 126.3 ml/min; Potassium 3.4 mmol/L (3.5-5.1)
[2024-03-07 08:23] LABS: Phosphorus 2.9 mg/dl (2.5-4.9)
--- NOTE | 2024-03-07 14:54 | Hospitalist Progress Note ---
Date of Service March 07, 2024 Assessment & Plan (1) Sepsis: Plan: Severe sepsis SIRS plus lactic acidosis plus encephalopathy Metabolic encephalopathy Secondary to complicated UTI, history of overactive bladder Urine culture growing Klebsiella Was on Aztreonam Klebsiella is pansensitive. 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 Per RN note on 03/05/24 4:24AM -cohen was noted to be in wrong place, cohen exchanged and in bladder Palliative meeting with family noted I updated daughter today over the phone. She noted her concerns regarding recurrent UTI, deteriorating health. I discussed the workup so far and recommend Urology follow up outpatient. She asked about possible PEG for optimal nutrition. I informed her that since patient still eats by mouth, it is better to continue that and modify consistency as needed in keeping with [facility] [employer] PROCEDURES TECHNOLOGIST eval and recs. She will like outpatient follow up with Palliative CM working on placement Plan to dc to SNF I spent a total of 50 minutes coordinating, documenting and providing care for this patient excluding time spent in performance of separately billed services Admission and Anticipated Discharge Date Admission Date: March 05, 2024 Subjective Patient seen and examined Reports feeling better today Reports weakness is improving Physical Exam Constitutional: + well hydrated; no acute distress Eyes: PERRL, conjunctivae normal, anicteric sclerae ENMT: external ear and nose normal, oropharynx normal Respiratory: normal respiratory effort, lungs clear to auscultation Cardiovascular: Rate/Rhythm: regular rate and regular rhythm Gastrointestinal (Abdomen): normal bowel sounds, soft, nontender, no hepatosplenomegaly Neurologic: PERRL EOMI follows simple commands. Alert and oriented to person, place, month and year Results & Data Results & Data Vital Signs (Past 12 Hours) Vital Signs Temp Pulse Pulse Resp BP Pulse Ox O2 Del Method 03/07/24 12:24 36.5 C 68 17 104/60 96 Room Air 03/07/24 05:57 60 03/07/24 03:30 36.6 C 60 18 118/76 95 Room Air Laboratory Results Abnormal lab results 03/06/24 03/06/24 03/07/24 Range/Units 17:13 20:35 05:54 Hgb 11.7 L (12.0-16.0) g/dl Hct 35.6 L (37.0-47.0) % RDW Std Deviation 50.3 H (36.4-46.3) fL RDW Coeff of [place] 17.2 H (11.5-14.5) % Plt Count 119 L (130-400) K/uL Potassium 3.4 L (3.5-5.1) mmol/L Chloride 108 H (98-107) mmol/L Creatinine 0.34 L (0.6-1.2) mg/dl BUN/Creatinine Ratio 55.9 H (10-20) POC Glucose 110 H 109 H (70-99) mg/dl Calcium 7.8 L (8.6-10.3) mg/dl Triglycerides 162 H (0-150) mg/dl VLDL Cholesterol, Calc 32 H (0-30) mg/dl 03/07/24 Range/Units 11:39 Hgb (12.0-16.0) g/dl Hct (37.0-47.0) % RDW Std Deviation (36.4-46.3) fL RDW Coeff of [place] (11.5-14.5) % Plt Count (130-400) K/uL Potassium (3.5-5.1) mmol/L Chloride (98-107) mmol/L Creatinine (0.6-1.2) mg/dl BUN/Creatinine Ratio (10-20) POC Glucose 121 H (70-99) mg/dl Calcium (8.6-10.3) mg/dl Triglycerides (0-150) mg/dl VLDL Cholesterol, Calc (0-30) mg/dl
[2024-03-07] MEDS: POTASSIUM CHLORIDE 20 MEQ/15 ML UDC PO STA (17:13)
[2024-03-07] MEDS: MELATONIN 3 MG TAB PO PRN (21:03)
[2024-03-08 08:01] LABS: Hematocrit (blood only) 35.7 % (37.0-47.0); Hemoglobin 11.9 g/dl (12.0-16.0); Mean Corpuscular Hemoglobin 26.4 pg (25.0-34.0); Mean Corpuscular Hgb Conc 33.3 g/dL (32.0-36.0); Mean Corpuscular Volume 79.3 fL (80.0-100.0); Mean Platelet Volume 10.3 fL (9.4-12.4); Platelet Count 133 K/uL (130-400); RDW Coefficient of Variation 17.6 % (11.5-14.5); RDW Standard Deviation 50.3 fL (36.4-46.3); White Blood Count 6.04 K/ul (4.8-10.8)
[2024-03-08 08:14] LABS: BUN Creatinine Ratio 35.5 (10-20); Calcium 8.3 mg/dl (8.6-10.3); Creatinine Clr Calc Pharmacy 168.6 ml/min; Est GFR (African American) 130.2 ml/min; Est GFR (Non-African American) 112.4 ml/min; Magnesium 1.8 mg/dl (1.7-2.4); Phosphorus 3.6 mg/dl (2.5-4.9); Potassium 3.4 mmol/L (3.5-5.1)
--- NOTE | 2024-03-08 12:15 | Discharge Summary ---
Date of Service March 08, 2024 Admission HPI Per Admitting Provider History obtained from patient, family, and records. Unable to obtain history from patient secondary to obtunded state. Medical history significant for chronic diastolic heart failure (55%, TTE 2023), hx nonocclusive CAD, hypertension, COPD, possible MIKE, DM 2 insulin requiring, history ataxia, myoclonic epilepsy as per records, possible RLS, GERD, right breast cancer status post surgery/radiotherapy, anxiety/mood disorder, overactive bladder as per records, recurrent UTIs, dementia, DVT on Eliquis, past tobacco abuse. Last [facility] confinement January 2024 for encephalopathy secondary to UTI, rule out subclinical seizures. Patient transferred to [facility] for further evaluation where she was admitted from January 25 to February 09, 2024. 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 Patient presentation attributed to dementia. Patient discharged to [facility]. 2 days ago, patient noted to be more confused as usual. Not talking a lot as per daughter. Outpatient ceftriaxone initiated for possible UTI. Worsening confusion despite antibiotic Rx. Patient unable to answer questions regarding headache, chest pain, SOB, cough, abdominal pain. Patient brought to the ER for evaluation. Ceftriaxone administered at the ER. 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 Admission Exam Per Admitting Provider GENERAL: Obtunded, obese, no respiratory distress SKIN: Normal color, warm HEENT: [place] palpebral conjunctivae, no ptosis, dry buccal mucosa NECK : Supple, short neck, no tenderness CHEST : Decreased breath sounds, no tenderness HEART : RRR, no obvious murmurs ABDOMEN: Some distention, nontender EXTREMITIES : Minimal LE swelling, no LE tenderness, no other conspicuous deformities noted NEUROLOGIC : Obtunded , no facial asymmetry, gait and stance not assessed Principal Diagnosis Sepsis Complicated urinary tract infection Discharge Exam Constitutional + well hydrated; no acute distress Eyes PERRL, conjunctivae normal, anicteric sclerae ENMT external ear and nose normal, oropharynx normal Respiratory normal respiratory effort, lungs clear to auscultation Cardiovascular Rate/Rhythm: regular rate and regular rhythm Gastrointestinal (Abdomen) normal bowel sounds, soft, nontender, no hepatosplenomegaly Musculoskeletal Trace pedal edema Neurologic Alert and oriented to person, place Poor insight Discharge Data Allergies Allergy/AdvReac Type Severity Reaction Status Date / Time dog dander Allergy Unknown Sneezing, Verified 07/28/23 06:51 itchy eyes/throat grass pollen-perennial rye, Allergy Unknown Sneezing, Verified 07/28/23 06:51 standar itchy eyes/throat Consultations 03/05/24 00:25 ED Decision to Admit Stat 03/05/24 12:38 Consult Palliative Care Routine Ordered Studies 03/05/24 00:55 CT abd pelvis wo con Stat CT head/brain wo con Stat Hospital Course (1) Sepsis: Severe sepsis SIRS plus lactic acidosis plus encephalopathy Metabolic encephalopathy Secondary to complicated UTI, history of overactive bladder Urine culture grew Klebsiella Was initially on IV Aztreonam Deescalated to po cefdinir to complete 10 days of antibiotics History of dementia Redirect as needed History ataxia, 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 Per RN note on 03/05/24 4:24AM -cohen was noted to be in wrong place, cohen exchanged and in bladder Daughter had concerns regarding recurrent UTI, deteriorating health. Referral made to Urology for further eval Patient to follow up with Palliative in clinic for continuing GOC Total Time Total Time Spent Total Time Spent (In Minutes): 35 Total Time Includes: Examination of the Patient, Discharge Planning, Medication Reconciliation and Other Discharge Plan Discharge Items Patient Disposition: Transfer Half-Way Fac Reason For Visit: SEPSIS Discharge Diagnosis: Sepsis Complicated urinary tract infection Activity: Resume your previous activity Non-emergency contact: Primary Care Provider and Urologist Call non-emergency contact if: you have any medication questions and your symptoms worsen Follow-up/Referrals: Jay Chatterjee [Primary Care Provider] - Alejandrina Garcia PA-C [Physician Mechanical Developer [employer]] - 03/26/24 10:30 am Kaela Zhang DNP [Nurse Practitioner] - 03/21/24 11:00 am Diet: Regular Diet Comment: Minced and moist diet, thin liquids. Needs assistance with all meals. Addtl Attending Provider Instructions: Mrs Patrick You were brought to the hospital for increased confusion. You were evaluated and managed for the above listed diagnoses. You are being discharged on oral antibiotics to complete treatment. Please follow up Urology for evaluation of recurrent urinary tract infection. Continue to follow up with senior education specialist outpatient. Your oxycodone was stopped for now as you did not need it during your hospital stay and this can contribute to confusion as well. Please continue scheduled and as needed tylenol. It was a pleasure taking care of you. Pending Studies at Discharge: No Stand-Alone Forms: My [facility] Skilled Items Patient informed of condition?: Yes DNR: No Discharge Level of Care: Skilled Communicable Disease: No Discharge Prognosis: Stable Lines: None Urinary Catheter: No Medications and DC Order Prescriptions: New cefdinir 300 mg Capsule 300 mg PO BID Qty: 12 0RF Continued multivitamin Tablet 1 tab PO QAM atorvastatin 40 mg Tablet 40 mg PO HS acetaminophen 325 mg Tablet 650 mg PO Q6 PRN (Reason: Fever) omeprazole 20 mg Capsule,Delayed Release(Dr/Ec) 20 mg PO AMHS Lactobacillus acidophilus Capsule 1 cap PO BID albuterol sulfate 90 mcg/actuation Hfa Aerosol Inhaler 2 puff INHALATION Q4H PRN (Reason: Shortness Of Breath) fluticasone propionate 50 mcg/actuation [place],Suspension 1 spray INTRANASAL QAM Trelegy Ellipta 100-62.5-25 mcg Blister With Device 1 inh INHALATION QAM latanoprost 0.005 % drops 1 drp OPB HS Patient Comments: both eyes ropinirole 1 mg tablet 1 mg PO HS cyanocobalamin (vitamin B-12) [Vitamin B-12] 100 mcg Tablet 100 mcg PO QAM albuterol sulfate 2.5 mg /3 mL (0.083 %) Solution For Nebulization 2.5 mg INHALATION Q4 PRN (Reason: Shortness Of Breath Or Wheezing) divalproex 500 mg tablet,delayed release (DR/EC) 500 mg PO BID cholecalciferol (vitamin D3) [Vitamin D3] 25 mcg (1,000 unit) Capsule 25 mcg PO QAM gabapentin 300 mg capsule 300 mg PO BID metformin 1,000 mg tablet 1,000 mg PO BID aspirin 81 mg tablet,delayed release (DR/EC) 81 mg PO QAM miconazole nitrate 2 % Powder 1 applic TOPICAL BID Rx Instructions: apply under breasts loratadine 10 mg Tablet 10 mg PO DAILY acetaminophen [Tylenol Extra Strength] 500 mg Tablet 1,000 mg PO Q8 furosemide 40 mg tablet 40 mg PO DAILY insulin glargine 100 unit/mL Solution 8 unit SUBCUT HS melatonin 5 mg Tablet 5 mg PO HS PRN (Reason: Insomnia) Eliquis 5 mg tablet 5 mg PO BID potassium chloride 20 mEq Tablet Extended Release 40 meq PO DAILY Discontinued ceftriaxone 1 gram recon soln 1 g IM DAILY Rx Instructions: x 3 days ordered 03/04/24 oxycodone 5 mg tablet 5 mg PO Q6H PRN (Reason: moderate to severe pain) Discharge Orders: Discharge Order (Routine); Ordered 03/08/24 Ordered By: Yaneth Rogers Admission Data Admit Date/Time: 03/05/24 05:00 Attending Provider: Yaneth Rogers I. Admit Provider: Andre Lerma Primary Care Provider: Jay Chatterjee Other Providers: Andre Lerma; Kaela Zhang Rishikesh Other Interventions: Discharge Summary Assessment (RN) Last Done: 03/08/24 12:29
== END 2024-03-08 13:18 | DRG 871 ==
LOC: ED 22:57 → EDINP 03-05 05:00 → SUATTDRO 03-05 05:00 → 2N 03-05 16:40
DX: J44.9 Chronic obstructive pulmonary disease, unspecified; G47.33 Obstructive sleep apnea (adult) (pediatric); E11.9 Type 2 diabetes mellitus without complications; K21.9 Gastro-esophageal reflux disease without esophagitis; Z83.3 Family history of diabetes mellitus; Z85.3 Personal history of malignant neoplasm of breast; N32.81 Overactive bladder; A41.59 Other Gram-negative sepsis; Z79.01 Long term (current) use of anticoagulants; I50.32 Chronic diastolic (congestive) heart failure; E87.20 Acidosis, unspecified; Z79.4 Long term (current) use of insulin; Z92.3 Personal history of irradiation; F03.92 Unspecified dementia, unspecified severity, with psychotic disturbance; G93.41 Metabolic encephalopathy; N39.0 Urinary tract infection, site not specified; I25.10 Atherosclerotic heart disease of native coronary artery without angina pectoris; G23.1 Progressive supranuclear ophthalmoplegia [Steele-Richardson-Olszewski]; R65.20 Severe sepsis without septic shock; G40.409 Other generalized epilepsy and epileptic syndromes, not intractable, without status epilepticus; B96.1 Klebsiella pneumoniae [K. pneumoniae] as the cause of diseases classified elsewhere; Z79.84 Long term (current) use of oral hypoglycemic drugs; Z79.82 Long term (current) use of aspirin